=== PATIENT | male | born 1945 | race Caucasian/White ===

== ENCOUNTER 2018-01-09 10:30 | Outpatient (RCR) | payer MEDICARE, BC, SELFPAY ==
--- NOTE | 2018-01-09 11:51 | PTTR_ITS ---
DATE: 01/09/18 SUBJECTIVE: Dawit notes at least a 60% improvement in his knee discomfort compared to 6 weeks ago. He states that he has been compliant with his HEP. OBJECTIVE: He is a 72 year old male with a 5 year hx of (B) knee pain. He started rehab on 11/19/17 and had a few visits while being on a HEP for the past 3 weeks. He has a follow up appt today. Gait: Ambulates with antalgia on the (R) > (L) with severe hyper pronation on the (R) and moderate on the (L). He is unable to walk on the toes of his (R) foot due to discomfort and poor mid foot stability. He has (B) genu valgus. ROM: AA knee motion is non irritable and he is minimally tender now throughout the joint lines and negative warmth. He has a medial longitudinal arch of the (L ) foot in a non weightbearing position and a low arch on the (R) with a callous throughout the plantar aspect of the (R) mid foot. 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 Therapeutic procedures ([id number]). He has a significant calcaneal valgus also in the weightbearing position. He wears accommodative type orthotics and he feels that this has been helpful. He also has some mild discomfort throughout the lateral aspect of the (L) hip he has a tight ITB on this side and I upgrade his program to include the ITB stretch which he feels in the area that he has his discomfort. I fit him with a ankle stabilizer attempting to supinate the (R) foot and he feels much greater stability with less antalgia when using this device. I issue him one and it is to be used when he is on his feet for prolonged periods. ASSESSMENT: He is 60% improved in regards to his symptoms he has significant posterior tibialis functional (R) foot resulting in severe hyperpronation contributing further to his genu valgus. The orthotics helped some but he really needs to have support above the ankle to control the excessive pronation. So I used an ASO and this does help. He is probably a candidate for an Elena brace type device so he is not interested in pursuing this right now and will stick with the ASO. 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 Upgrade his HEP to include the ITB stretch on the (L) and issue him an ASO and describe how to use this properly mainly with prolonged weightbearing activities. He is going to continue with his strengthening exercises and he is going to experiment with his (L) foot and the ASO and if he feels like he this improves his gait further than he can certainly get another device. PLAN: D/C from PT. Goals: All goals obtained. G-Codes: [id number] Direct treatment time: 30 minutes Total treatment time: 30 minutes
== END 2018-01-24 23:59 | disposition home or self-care (01) ==
LOC: PT 10:30
PROVIDERS: PCP Nurse Practitioner Family; Referring Provider Nurse Practitioner Family; Visit Provider Nurse Practitioner Family
DX: M25.562 Pain in left knee (principal); M21.252 Flexion deformity, left hip
CPT/HCPCS: 97110

== ENCOUNTER 2018-01-14 06:56 | Emergency (ER) | payer MEDICARE, BC, SELFPAY ==
[2018-01-14 07:00] VITALS: BP 164/69; PULSE 92; RESP 16; TEMP 36.7; O2SAT 98
--- NOTE | 2018-01-14 07:13 | ED.GENADUL ---
Disposition Disposition: STILL A PATIENT Condition: Stable Medical Decision Making - Medical Decision Making Patient presenting with abdominal discomfort but not really pain as well as bloating. He does seem to have a fullness in the left lower quadrant but not really a mass. Is not tender. There is no pulsatile mass. He just does not feel right. Will go ahead and get laboratory studies and abdominal pelvic CT scan to evaluate whether this fullness is anything significant or not. Patient be signed over to oncoming physician Dr. Hartley will need to follow-up on labs and imaging studies. History of Present Illness - General Chief complaint: Abd Prob Stated complaint: UNKNOWN Time Seen by Provider: 01/14/18 07:11 Source: patient, old records reviewed Mode of arrival: ambulatory - History of Present Illness Initial comments: Patient presents to ED with bloating and discomfort in the lower abdomen for over a month now. He denies nausea/vomiting. He has been having bowel movements okay. He is urinating okay. He has no back pain. He does not necessarily even have abdominal pain just discomfort. He has had no fever. He continues to eat and drink well. He saw his primary care last week but did not say anything to her. Not clear why he came in this morning but he feels like he is worse. - Related Data Finasteride [Proscar] 5 mg PO DAILY 07/25/17 Levothyroxine Sodium [Synthroid] 25 mcg PO DAILY 07/25/17 Simvastatin [Zocor] 10 mg PO DAILY 07/25/17 Tamsulosin HCl 0.4 mg PO BID 07/25/17 TraZODone [Desyrel] 150 mg PO HS 07/25/17 Docusate Sodium [Colace] 100 mg PO DAILY #30 cap 11/18/17 Polyethylene Glycol 3350 [Miralax] 17 gm PO DAILY #5 packet 11/18/17 Sildenafil Citrate 100 mg PO PRN #12 tab-cap 11/19/17 Allergies Allergy/AdvReac Type Severity Reaction Status Date / Time Penicillins Allergy Mild Skin Rash Unverified 01/14/18 07:06 aspirin AdvReac Mild GI Bleeding Unverified 01/14/18 07:06 Review of Systems Constitutional: denies: chills, diaphoresis, fever Eyes: denies: vision change ENT: denies: ear pain Respiratory: denies: cough, shortness of breath Cardiovascular: denies: chest pain Gastrointestinal: other (bloating). denies: abdominal pain, nausea, vomiting, diarrhea, constipation Genitourinary: denies: urgency, dysuria, frequency, hematuria Musculoskeletal: denies: back pain Skin: denies: rash Neurological: denies: headache, weakness, numbness Past Medical History - Past Medical History diverticulitis; hypothyroid; BPH; SBO Surgical history: appendectomy, cholecystectomy, herniorraphy - Social History Alcohol use: none Drug use: none General Exam - General Limitations: no limitations General appearance: alert, in no apparent distress - Head Head exam: Present: atraumatic, normocephalic - Eye Eye exam: Absent: scleral icterus - ENT ENT exam: Present: mucous membranes moist - Respiratory Respiratory exam: Present: normal lung sounds bilaterally - Cardiovascular Cardiovascular Exam: Present: regular rate, normal rhythm, normal heart sounds - GI/Abdominal GI/Abdominal exam: Present: soft, other (fullness in the LLQ). Absent: distended, tenderness, guarding, rebound, mass, pulsatile mass - Extremities Exam Extremities exam: Present: normal inspection. Absent: full ROM - Neurological Exam Neurological exam: Present: alert, oriented X3, CN II-XII intact. Absent: motor sensory deficit - Psychiatric Psychiatric exam: Present: normal affect, normal mood - Skin Skin exam: Present: warm, dry, intact Course Vital Signs - 24 hr 01/14/ 07:00 Temperature 98.1 F Pulse 92 H Respiratory 96 H Rate Blood Pressure 164/69 Pulse Oximetry 98
[2018-01-14] MEDS: Lactated Ringers 1,000 ML 1000 ML IV (07:30)
--- NOTE | 2018-01-14 07:30 | DI.RPTCT_ITS ---
SYMPTOM/DIAGNOSIS: ABDOMINAL BLOATING/DISCOMFORT CT ABDOMEN AND PELVIS: Comparison is made with 25 July 2017. Images were performed from the lung bases through the ischial tuberosities after IV and without benefit of oral contrast. The previous exam showed sigmoid diverticulitis which has resolved. No abscess , free air or free fluid is seen. There is no new area of inflammation, bowel wall thickening or dilatation. Suture material is noted around the base of the cecum. There is a moderate quantity of stool. Fibrotic changes are noted at the lung bases. The heart size is normal. Patient is status post cholecystectomy. A small cyst is noted in the liver. The spleen, pancreas and adrenals are unremarkable. Bilateral parapelvic renal cysts are noted. No stones or hydronephrosis seen. The prostate is again noted to be enlarged. The bladder is unremarkable. There is evidence of a prior left inguinal hernia repair. No recurrent hernia is seen. The aorta shows mild calcification and is normal in diameter. Degenerative changes are noted in the spine. IMPRESSION: No acute abnormality.
[2018-01-14 07:44] LABS: Absolute Basophil Count 0.02 k/cumm (0.0-0.2); Absolute Eosinophil Count 0.03 k/cumm (0.0-0.7); Absolute Lymphocyte Count 0.83 k/cumm (1.2-3.4); Absolute Monocyte Count 0.35 k/cumm (0.11-0.7); Absolute Neutrophil Count 2.37 k/cumm (1.2-6.7); Basophils % 0.6; Eosinophils % 0.8; HCT 40.5 % (40.0-50.0); HGB 13.7 g/dL (13.5-17.5); Lymphocytes % 23.1; Mean Corp. HGB Concentration 33.8 g/dL (32.0-36.0); Mean Corpuscular Hemoglobin 31.1 pg (27.0-33.0); Mean Corpuscular Volume 91.8 fL (80-95); Mean Platelet Volume 8.9 fL (8.0-11.0); Monocytes % 9.7; Neutrophils % 65.8; Platelet Count 190 x1000/uL (130-400); RBC 4.41 m/cumm (4.50-6.00); RBC Distribution Width 12.5 % (11.8-14.1)
[2018-01-14 07:56] LABS: ALT 20 U/L (12-78); AST 19 U/L (15-37); Albumin 4.1 g/dL (3.4-5.0); Alkaline Phosphatase 75 U/L (46-116); Anion Gap 3.1 mmol/L (3-11); BUN 14 mg/dL (7-18); Bilirubin, Total 1.4 mg/dL (0.2-1.0); CO2 31.9 mmol/L (21.0-32.0); CREATININE 0.88 mg/dL (0.70-1.30); Calcium 9.6 mg/dL (8.5-10.1); Chloride 105 mmol/L (98-107); Glucose 107 mg/dL (70-100); Lipase 154 U/L (73-393); Potassium 4.2 mmol/L (3.5-5.1); Sodium 140 mmol/L (136-145); Total Protein 7.2 g/dL (6.4-8.2)
[2018-01-14 08:27] LABS: Bilirubin Negative (Negative); Blood Negative (Negative); Clarity Clear; Glucose Negative (Negative); Ketones Negative (Negative); Leukocyte Esterase Negative (Negative); Nitrite Negative (Negative); Urobilinogen 0.2 EU/dL (Up TO 0.2); pH 6.5 (5-8)
[2018-01-14] MEDS: Omnipaque 350 MG/ML 100 ML BTL IJ (09:09)
[2018-01-14 11:00] VITALS: BP 162/61; PULSE 63; RESP 16; TEMP 36.7; O2SAT 98
--- NOTE | 2018-01-14 21:09 | ED.FU ---
Disposition Disposition: HOME Condition: Stable Instructions: Abdominal Pain (ED) Additional Instructions: Please follow-up with your primary care provider as soon as possible for reassessment. Please have your family doctor schedule colonoscopy for further evaluation. If you notice any worsening of your symptoms, or any new symptoms such as vomiting, diarrhea, fever, chills, shortness of breath, chest pain, numbness, weakness, or fainting , please return immediately to the emergency department for reevaluation. Please follow up with your primary care provider as soon as possible for reassessment and reevaluation. As always, it was a pleasure participating in your medical care today. Referrals: Divine Jaime [Primary Care Provider] - Medical Decision Making - Lab Data Laboratory Tests 01/14/18 01/14/18 01/14/18 07:25 07:25 08:20 WBC 3.60 L RBC 4.41 L Hgb 13.7 Hct 40.5 MCV 91.8 MCH 31.1 MCHC 33.8 RDW 12.5 Plt Count 190 MPV 8.9 Immature Gran % 0.0 Neutrophils % 65.8 Lymphocytes % 23.1 Monocytes % 9.7 Eosinophils % 0.8 Basophils % 0.6 Absolute Neutrophils 2.37 Absolute Lymphocytes 0.83 L Absolute Monocytes 0.35 Absolute Eosinophils 0.03 Absolute Basophils 0.02 Sodium 140 Potassium 4.2 Chloride 105 Carbon Dioxide 31.9 Anion Gap 3.1 BUN 14 Creatinine 0.88 Estimated GFR/1.73 m2 >= 60.00 Glucose 107 H Calcium 9.6 Total Bilirubin 1.4 H AST 19 ALT 20 Alkaline Phosphatase 75 Total Protein 7.2 Albumin 4.1 Lipase 154 Urine Color Yellow Urine Clarity Clear Urine pH 6.5 Ur Specific Drummond 1.020 Urine Protein Negative Urine Ketones Negative Urine Blood Negative Urine Nitrite Negative Urine Bilirubin Negative Urine Urobilinogen 0.2 Ur Leukocyte Esterase Negative Urine Glucose Negative Care Signed Out By:: Dr Dickson - Continuation of Care Continuation of Care Plan: The case was signed out to me by my colleague Dr. Dickson. Patient's laboratory workup and imaging studies have returned benign. CT scan per Dr. Sandoval shows no evidence of acute process. I did go and reassess the patient he continues to show no significant abdominal pain at this time. No significant mass on exam. With a negative CT scan and normal laboratory workup I feel he is safe for discharge home with close follow-up with his primary care provider for colonoscopy. We discussed red flags which returned the patient understands. I have extensively reviewed the treatment plan and discharge instructions with the patient. I have addressed all patient concerns at this time. The patient was made aware of what symptoms to monitor for that would warrant a return to the emergency department. Discussed the plan with the patient, they demonstrate verbal understanding and agreement with our assessment and plan at this time.
== END 2018-01-14 11:23 | disposition home or self-care (01) ==
PROVIDERS: Emergency Medicine; Emergency Provider Student in an Organized Health Care Education/Training Program; PCP Nurse Practitioner Family
DX: R10.30 Lower abdominal pain, unspecified (principal)
CPT/HCPCS: 74177; 96360; 96361; 99284; 99285; 36415; 80053; 83690; 81003; 85025; J3490

== ENCOUNTER 2018-01-20 09:29 | Outpatient (CLI) | payer MEDICARE, BC, SELFPAY ==
--- NOTE | 2018-01-20 09:30 | NS.NUTBLAN_ITS ---
Mr. Hanson returns for follow up for nutritional counseling for diverticulosis and weight loss. This time he reports that he has follow through with the action plans he set forth from our last visit. He is cooking with a variety of foods. He is preparing his larger meal in the middle of the day. He is eating more protein foods. He is more physically active. Acknowledged his excellent progress. Mr. Hanson would like to continue working on these same action plans over the next month and check in with me at that time. His weight is stable at 171.5 lbs. He will self monitor his progress his over the next month and we will evaluate the adequacy of his nutrition care when he returns next month. Appointment start time 0937h End time: 1001h
== END 2018-01-20 09:30 ==
PROVIDERS: PCP Nurse Practitioner Family; Visit Provider Dietitian, Registered
DX: K57.90 Diverticulosis of intestine, part unspecified, without perforation or abscess without bleeding (principal); R63.4 Abnormal weight loss; Z71.3 Dietary counseling and surveillance
CPT/HCPCS: 97803

== ENCOUNTER → 2018-03-20 13:50 | Outpatient (BNVA) | payer MEDICARE, SELFPAY | PROVIDERS: PCP Nurse Practitioner Family; Visit Provider Urology | DX: N52.9 Male erectile dysfunction, unspecified (principal) | CPT/HCPCS: 99213 ==

== ENCOUNTER 2018-03-24 10:03 | Outpatient (CLI) | payer MEDICARE, SELFPAY ==
--- NOTE | 2018-03-28 14:22 | NS.NUTBLAN_ITS ---
Mr. Hanson returns for follow up nutritional counseling for diverticulitis and healthy eating nutrition therapy. He continues to do very well. He is eating breakfast earlier than he had been. He has Raisin Bran, Green[place]ic muffin, or cereal. He has his bigger meal at 1230 pm, and then in the evening he has an omelet and some fruit. 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 His weight today is stable at 172.2 lbs. Mr. Hanson would like to continue to follow up with me to help make sure he is staying on track. Appointment start time: 1000h Appointment end time: 1015 h
== END 2018-03-24 10:23 ==
PROVIDERS: PCP Nurse Practitioner Family; Visit Provider Dietitian, Registered
DX: K57.32 Diverticulitis of large intestine without perforation or abscess without bleeding (principal); Z71.3 Dietary counseling and surveillance
CPT/HCPCS: 97803

== ENCOUNTER 2018-04-28 00:55 | Outpatient (CLI) | payer MEDICARE, SELFPAY ==
--- NOTE | 2018-05-02 08:57 | W.NUTRFU ---
Date of service: 04/28/18 Time of Service: 09:30 Nutritional Follow up NOTE: Mr Hanson returns for follow up nutrition therapy for management of diverticulitis and general healthful eating. He continues to eat more healthfully. He continues to eat three balanced meals daily and he has a light meal at the end of the day so that he is not bothered by his GERD. Mr. Hanson reports that he is working hard to be physically active daily and he notices it makes him feel better. Acknowledged all of his excellent efforts towards feeling better and encouraged him to keep up with what he is doing. He would like to continue to follow up with me as a check in and so that he does not get off track. Mr. Hanson's weight is stable. He is 171.4 lbs. Will continue to monitor his weight and PO intake. Will evaluate his nutrition care plan ongoing and adjust as needed. Time Spent in Nutritional Counseling and Treatment: 47 minutes face to face
== END 2018-04-28 01:15 ==
PROVIDERS: PCP Nurse Practitioner Family; Visit Provider Dietitian, Registered
DX: K57.92 Diverticulitis of intestine, part unspecified, without perforation or abscess without bleeding (principal)
CPT/HCPCS: 97803

== ENCOUNTER 2018-05-30 01:58 | Outpatient (CLI) | payer MEDICARE, SELFPAY ==
--- NOTE | 2018-06-02 15:11 | W.NUTRFU ---
Date of service: 05/30/18 Time of Service: 09:00 Nutritional Follow up NOTE: Mr. Hanson continues to eat in the same way. He eats three meals per day. He has an omelette and fruit in the morning, a larger meal midday, and then a sandwich or a salad in the evening. He is walking for 30 minutes daily now. He does state that he had a few days in the past month where he didnt' feel well, but generally speaking, he states he is feeling better and is happier to eat healthier. His weight today is down to 167 lbs. from 172 lbs last month. Encouraged him to have drinks with calories with his meals such as whole milk, juice, or hot cocoa. He verbalizes that he will work to increase his caloric intake. Due to his recent weight loss, Mr. Hanson will return for follow up in two weeks rather than one month. Will monitor his weight and PO intake and will evaluate his nutrition care plan and adjust as needed. Time Spent in Nutritional Counseling and Treatment: 27 minutes
== END 2018-05-30 02:18 ==
PROVIDERS: PCP Nurse Practitioner Family; Visit Provider Dietitian, Registered
DX: K57.92 Diverticulitis of intestine, part unspecified, without perforation or abscess without bleeding (principal); Z71.3 Dietary counseling and surveillance; R63.4 Abnormal weight loss; N52.9 Male erectile dysfunction, unspecified
CPT/HCPCS: 97803; 99213

== ENCOUNTER 2018-07-15 19:28 | Outpatient (REF) | payer MEDICARE, SELFPAY ==
[2018-07-15 20:48] LABS: HDL Cholesterol 70 mg/dL (40-60); LDL CHOLESTEROL 54 mg/dL (<100)
== END 2018-07-15 19:48 ==
LOC: NCHCN 19:28
PROVIDERS: PCP Nurse Practitioner Family; Visit Provider Nurse Practitioner Family
DX: E78.5 Hyperlipidemia, unspecified (principal); F41.1 Generalized anxiety disorder; K21.9 Gastro-esophageal reflux disease without esophagitis; E07.9 Disorder of thyroid, unspecified; K59.00 Constipation, unspecified
CPT/HCPCS: 83721; 83718

== ENCOUNTER → 2018-07-25 08:06 | Outpatient (BNVA) | payer MEDICARE, SELFPAY | PROVIDERS: PCP Nurse Practitioner Family; Visit Provider Urology | DX: N52.9 Male erectile dysfunction, unspecified (principal) | CPT/HCPCS: 99212 ==

== ENCOUNTER → 2018-09-15 08:27 | Outpatient (BNVA) | payer MEDICARE, SELFPAY | PROVIDERS: PCP Nurse Practitioner Family; Visit Provider Urology | DX: N52.9 Male erectile dysfunction, unspecified (principal) | CPT/HCPCS: 99213 ==

== ENCOUNTER 2018-10-22 11:59 | Outpatient (REF) | payer MEDICARE, SELFPAY ==
[2018-10-22 13:22] LABS: TSH (W/Ref FT4) 3.37 uIU/mL (0.358-3.74)
== END 2018-10-22 12:19 ==
LOC: NCHCN 11:59
PROVIDERS: PCP Nurse Practitioner Family; Visit Provider Nurse Practitioner Family
DX: E07.9 Disorder of thyroid, unspecified (principal)
CPT/HCPCS: 84443

== ENCOUNTER → 2018-11-18 08:43 | Outpatient (BNVA) | payer MEDICARE, SELFPAY | PROVIDERS: PCP Nurse Practitioner Family; Visit Provider Urology | DX: N52.9 Male erectile dysfunction, unspecified (principal) | CPT/HCPCS: 99213 ==

== ENCOUNTER → 2019-01-30 10:01 | Outpatient (BNVA) | payer MEDICARE, SELFPAY | PROVIDERS: PCP Nurse Practitioner Family; Visit Provider Urology | DX: N52.9 Male erectile dysfunction, unspecified (principal) | CPT/HCPCS: 99213 ==

== ENCOUNTER 2019-03-03 13:04 | Outpatient (REF) | payer MEDICARE, SELFPAY ==
[2019-03-03 16:17] LABS: ALT 25 U/L (16-63); AST 25 U/L (15-37); Alkaline Phosphatase 78 U/L (46-116); Anion Gap 6.8 mmol/L (3-11); BUN 19 mg/dL (7-18); Bilirubin, Total 1.6 mg/dL (0.2-1.0); CO2 29.2 mmol/L (21.0-32.0); CREATININE 0.77 mg/dL (0.70-1.30); Calcium 8.8 mg/dL (8.5-10.1); Chloride 107 mmol/L (98-107); Glucose 101 mg/dL (70-100); Potassium 4.5 mmol/L (3.5-5.1); Sodium 143 mmol/L (136-145); TSH (W/Ref FT4) 3.04 uIU/mL (0.36-3.74); Total Protein 6.8 g/dL (6.4-8.2)
[2019-03-03 16:19] LABS: HGB 12.6 g/dL (13.5-17.5); Mean Corp. HGB Concentration 32.3 g/dL (32.0-36.0); Mean Corpuscular Hemoglobin 31.1 pg (27.0-33.0); Mean Corpuscular Volume 96.3 fL (80-95); Platelet Count 209 x1000/uL (130-400); RBC 4.05 m/cumm (4.50-6.00); RBC Distribution Width 12.6 % (11.8-14.1); White Blood Cell Count 3.63 k/cumm (4.4-10.8)
== END 2019-03-03 13:24 ==
LOC: NCHCN 13:04
PROVIDERS: PCP Nurse Practitioner Family; Visit Provider Nurse Practitioner Family
DX: E07.9 Disorder of thyroid, unspecified (principal); E80.6 Other disorders of bilirubin metabolism; Z13.1 Encounter for screening for diabetes mellitus
CPT/HCPCS: 80053; 85027; 84443

== ENCOUNTER 2019-03-10 11:09 | Outpatient (REF) | payer MEDICARE, SELFPAY ==
[2019-03-11 00:07] LABS: Folate > 20.0 ng/mL (8.6-20.0); Vitamin B12 480 pg/mL (193-986)
== END 2019-03-10 11:29 ==
LOC: NCHCN 11:09
PROVIDERS: PCP Nurse Practitioner Family; Visit Provider Nurse Practitioner Family
DX: D53.9 Nutritional anemia, unspecified (principal)
CPT/HCPCS: 82607; 82746

== ENCOUNTER 2019-05-18 14:17 | Emergency (ER) | payer MEDICARE, SELFPAY ==
[2019-05-18] VITALS (15 sets, daily range): BP systolic 138–165; BP diastolic 46–70; PULSE 64–98; RESP 13–29; TEMP 36.7–37.1; O2SAT 94–98
--- NOTE | 2019-05-18 14:21 | W.ED.GENAD ---
Discharge Plan Discharge Details Chief Complaint: Dizzy/Sync Primary Care Provider: Kai Peter ED Provider: Walker Hartley Home Meds and New Rx's Prescriptions: No Action (DME) vacuum erection device system kit See Dose Instructions .ROUTE .MEDSUPPLY Qty: 1 RF: 0 simvastatin 10 MG tablet 10 mg PO DAILY RF: 0 levothyroxine [Synthroid] 25 MCG tablet 25 mcg PO DAILY RF: 0 tamsulosin 0.4 MG capsule 0.4 mg PO BID RF: 0 finasteride [Proscar] 5 MG tablet 5 mg PO DAILY RF: 0 <Walker Hartley DO - Last Filed: 05/18/19 15:23> This is a very pleasant 73-year-old male with past medical history of high cholesterol no family history of stroke or MT who presents today for evaluation of imbalance. 1-1/2 hours ago he developed sudden imbalance when he tried to stand up, and since then has been notably imbalance. He denies any actual dizziness, room spinning, tinnitus, trauma fall or other abnormality. He has never had symptoms like this before. He denies any chest pain or shortness of breath. Screening EKG is negative for any significant abnormality. Neurologic exam is relatively unremarkable aside from notable ataxia for which she notably falls towards the left. He does have bidirectional bilateral horizontal nystagmus which is also slightly atypical however his test of skew is normal. His symptoms may be secondary to dehydration we will rehydrate however with the atypical nystagmus component, as well as the notable ataxia I do feel that cerebellar etiology or brainstem etiology is certainly on the differential. We will start with a CT scan, I feel that further evaluation with an MRI is likely indicated if nothing is found on CT. EKG 14: 29 Rate 66, intervals normal, sinus rhythm, no significant ST elevations or depressions, no T wave inversions, no evidence of STEMI. HPI <DO Marjorie Horton Last Filed: 05/18/19 14:21> General Date/Time Provider Initiated Documentation: 05/18/19 14:19. Related Data Home Medications Medication Instructions Recorded Confirmed finasteride [Proscar] 5 mg PO DAILY 07/25/17 01/30/19 levothyroxine [Synthroid] 25 mcg PO DAILY 07/25/17 01/30/19 simvastatin 10 mg PO DAILY 07/25/17 01/30/19 tamsulosin 0.4 mg PO BID 07/25/17 01/30/19 vacuum erection device system #1 each 03/28/18 01/30/19 Previous Rx's Medication Instructions Recorded vacuum erection device system #1 each 03/28/18 Allergies Allergy/AdvReac Type Severity Reaction Status Date / Time Penicillins Allergy Mild Skin Rash Unverified 03/20/18 14:02 aspirin AdvReac Mild GI Bleeding Unverified 03/20/18 14:02 <Walker Hartley, DO - Last Filed: 05/18/19 15:23> HPI Narrative: This is a 73-year-old male with a past medical history of high cholesterol, hypothyroidism who presents today for evaluation of imbalance. Patient states that at 1:30 PM which was an hour and a half ago the patient stood up and felt incredibly imbalanced. He lost his balance but did not fall over. He was able to catch himself and lower himself to the ground. EMS was contacted and he was brought to the ER for further evaluation. He denies any room spinning sensation or sensation of actual dizziness. He denies any ringing in his ears or visual changes. He denies any headache, numbness, tingling or weakness. He denies ever having had any symptoms like this before. He denies any family history of stroke or MT. Denies any previous cardiac disease. No history of A. fib. He is not on any blood thinners. He denies any chest pain, chest heaviness, chest tightness, arm neck or shoulder pain. He denies any recent illness, fever or chills. He does state that he has been drinking significantly less over the last 24 hours. He feels that this may be a cause of his symptoms. No other complaints at this time. No other modifying factors. <Walker Hartley DO - Last Filed: 05/18/19 15:23> All systems reviewed & are unremarkable except as noted in HPI and below PFSH <Macey Fraser, DO - Last Filed: 05/18/19 14:21> Social History Smoking/Tobacco Use Status: Never Alcohol Intake: never Drug use: Never Substance use type: does not use Do you feel safe at home: Yes Do you feel safe in your relationship?: Yes <Walker Hartley, DO - Last Filed: 05/18/19 15:23> Narrative Exam Narrative: 1.Const: Well-nourished, Well-developed, appearing stated age 2.Eyes: PERRL, no conjunctival injection, and symmetrical lids. 3.ENT: Atraumatic external nose and ears. Moist MM. Neck: Symmetric, trachea midline, No thyromegaly. 4.CVS: +S1/S2, No murmurs or gallops. Peripheral pulses 2+ and equal in all extremities. Brisk capillary refill in all extremities. 5.RESP: Unlabored respiratory effort. Clear to auscultation bilaterally. No wheezes rales or rhonchi 6.GI: Soft, Nontender/Nondistended, No hepatosplenomegaly. No guarding or rebound. 7.MSK: Normocephalic/Atraumatic, Extremities w/o deformity or ttp No cyanosis or clubbing, Normal movement of all extremities 8.Skin: Warm, Dry. No rashes or lesions. 9.Neuro: winch runner II-XII grossly intact. Sensation grossly intact. Patient is able to hold bilateral arms up for 5 seconds and there is no pronator drift, patient also holds legs up for 10 seconds bilaterally without any drop, sensation intact to light touch in hands and feet bilaterally. Cerebellar exam normal as tested by [id number], [id number], rapid alternating movements, fine finger movements. However although [id number] does appear normal he does seem to show a slight minimal restriction using the left leg. Visual givens intact peripherally. Normal speech pattern and verbal understanding. Patient is notably ataxic though, and veers/falls notably to the left. However Romberg test is normal. The patient demonstrates No vertical nystagmus. However he does have bidirectional bilateral horizontal nystagmus. The head impulse test is negative for any significant abnormality and does not worsen his symptoms. Normal test of skew with no evidence of vertical or horizontal correction. 10.Psych: (AAO) x3. Appropriate mood and affect
[2019-05-18 14:48] LABS: Absolute Basophil Count 0.01 k/cumm (0.0-0.2); Absolute Eosinophil Count 0.05 k/cumm (0.0-0.7); Absolute Lymphocyte Count 1.13 k/cumm (1.2-3.4); Absolute Monocyte Count 0.43 k/cumm (0.11-0.7); Absolute Neutrophil Count 3.15 k/cumm (1.2-6.7); Basophils % 0.2; HCT 38.2 % (40.0-50.0); HGB 12.8 g/dL (13.5-17.5); Lymphocytes % 23.7; Mean Corp. HGB Concentration 33.5 g/dL (32.0-36.0); Mean Corpuscular Hemoglobin 31.8 pg (27.0-33.0); Mean Corpuscular Volume 94.8 fL (80-95); Mean Platelet Volume 9.2 fL (8.0-11.0); Neutrophils % 66.1; Platelet Count 202 x1000/uL (130-400); RBC 4.03 m/cumm (4.50-6.00); RBC Distribution Width 12.2 % (11.8-14.1); White Blood Cell Count 4.77 k/cumm (4.4-10.8)
[2019-05-18] MEDS: Normal Saline 1,000 ML 1000 ML IV (15:03)
[2019-05-18 15:09] LABS: ALT 25 U/L (16-63); AST 25 U/L (15-37); Albumin 3.9 g/dL (3.4-5.0); Alkaline Phosphatase 76 U/L (46-116); Anion Gap 7.3 mmol/L (3-11); BUN 16 mg/dL (7-18); Bilirubin, Total 1.3 mg/dL (0.2-1.0); CO2 32.7 mmol/L (21.0-32.0); CREATININE 0.87 mg/dL (0.70-1.30); Calcium 9.2 mg/dL (8.5-10.1); Chloride 107 mmol/L (98-107); Glucose 121 mg/dL (74-106); Magnesium 1.9 mg/dL (1.8-2.4); Potassium 4.1 mmol/L (3.5-5.1); Sodium 147 mmol/L (136-145); Total Protein 6.9 g/dL (6.4-8.2)
[2019-05-18 15:12] LABS: Troponin I < 0.05 ng/Ml (<0.06)
--- NOTE | 2019-05-18 15:27 | DI.CT_ITS ---
EXAM: CT HEAD WO CLINICAL HISTORY: dizzy, ataxia, r/o cerebellar infarct TECHNIQUE: NONCONTRAST COMPARISON: No exams were available for comparison FINDINGS: The ventricles and sulci are consistent with the patient's age. No intracranial hemorrhage is presen t. The ventricles are intact. The basilar cisterns are patent. There is no acute midline shift or mass effect. The visualized paranasal sinuses are clear as are the mastoid air cells. Calvarium is intact. IMPRESSION: No acute intracranial process. Findings were discussed with Dr. Hartley of the Emergency Department on the date of the examination.
--- NOTE | 2019-05-18 15:30 | W.ED.GENAD ---
Discharge Plan Disposition Patient Disposition: HOME Condition: Good Discharge Details Chief Complaint: Dizzy/Sync Clinical Impression: Peripheral vertigo Primary Care Provider: Kai Peter ED Provider: Walker Hartley Home Meds and New Rx's Prescriptions: New meclizine 25 mg tablet 25 mg PO TID Qty: 20 RF: 0 No Action (DME) vacuum erection device system kit See Dose Instructions .ROUTE .MEDSUPPLY Qty: 1 RF: 0 simvastatin 10 MG tablet 10 mg PO DAILY RF: 0 levothyroxine [Synthroid] 25 MCG tablet 25 mcg PO DAILY RF: 0 tamsulosin 0.4 MG capsule 0.4 mg PO BID RF: 0 finasteride [Proscar] 5 MG tablet 5 mg PO DAILY RF: 0 Discharge Instructions Instructions: Dizziness (ED) Additional Instructions: At this time your MRI and lab work is negative for any significant abnormality. There does not appear to be any significant abnormalities with your heart. Although your symptoms were initially notably atypical at this time after treatment and assessment I feel her symptoms are likely secondary to what we call peripheral vertigo. Please take the meclizine as needed. If you have no more symptoms you can stop taking it. Please make sure you are drinking 10 to 12 cups of water per day. If you notice any worsening of your symptoms, or any new symptoms such as vomiting, diarrhea, fever, chills, shortness of breath, chest pain, numbness, weakness, or fainting , please return immediately to the emergency department for reevaluation. Please follow up with your primary care provider as soon as possible for reassessment and reevaluation. As always, it was a pleasure participating in your medical care today. Referrals: Kai Peter, [facility] [Primary Care Provider] - Medical Decision Making This is a very pleasant 73-year-old male with past medical history of high cholesterol no family history of stroke or NE who presents today for evaluation of imbalance. 1-1/2 hours ago he developed sudden imbalance when he tried to stand up, and since then has been notably imbalance. He denies any actual dizziness, room spinning, tinnitus, trauma fall or other abnormality. He has never had symptoms like this before. He denies any chest pain or shortness of breath. Screening EKG is negative for any significant abnormality. Neurologic exam is relatively unremarkable aside from notable ataxia for which she notably falls towards the left. He does have bidirectional bilateral horizontal nystagmus which is also slightly atypical however his test of skew is normal. His symptoms may be secondary to dehydration we will rehydrate however with the atypical nystagmus component, as well as the notable ataxia I do feel that cerebellar etiology or brainstem etiology is certainly on the differential. We will start with a CT scan, I feel that further evaluation with an MRI is likely indicated if nothing is found on CT. 4:[address] scan and MRI is negative for acute process or infarct. On reassessment the patient actually has a notable improvement of his ataxia, he has not yet gotten the meclizine but he has had a liter of fluids. His bilateral bidirectional horizontal nystagmus is still present though. Patient states that he does feel a bit better at this time. Will give meclizine, continue to reassess. With negative MR, I feel that stroke is unlikely, and that perhaps his symptoms although notably atypical for peripheral etiology actually may be secondary to a peripheral etiology. If he continues to demonstrate the sort of improvement I feel he may be able to go home with close follow-up with his PCP. 6:18 PM On reassessment after meclizine the patient is feeling much better. He is able to very briskly and quickly ambulate around the emergency department with no ataxia no dizziness and no difficulty whatsoever. He is feeling well and would like to go home. His horizontal nystagmus is notably improved. At this time I do feel that it is reasonable for him to be discharged. We will give meclizine for home use, recommend continued fluid rehydration at home. Discussed red flags which to return. Diagnosis atypical peripheral vertigo. I have extensively reviewed the treatment plan and discharge instructions with the patient. I have addressed all patient concerns at this time. The patient was made aware of what symptoms to monitor for that would warrant a return to the emergency department. Discussed the plan with the patient, they demonstrate verbal understanding and agreement with our assessment and plan at this time. EKG 14: 29 Rate 66, intervals normal, sinus rhythm, no significant ST elevations or depressions, no T wave inversions, no evidence of STEMI. FINDINGS: The ventricles and sulci are consistent with the patient's age. No intracranial hemorrhage is present. The ventricles are intact. The basilar cisterns are patent. There is no acute midline shift or mass effect. The visualized paranasal sinuses are clear as are the mastoid air cells. Calvarium is intact. IMPRESSION: No acute intracranial process. Findings were discussed with Dr. Hartley of the Emergency Department on the date of the examination. FINDINGS: Brain: No intracranial hemorrhage. No mass or midline shift. No cerebral edema. No extra-axial collections. No restricted diffusion to suggest acute infarction. Age-appropriate cerebral atrophy. Ventricles: The ventricles are normal in position. No hydrocephalus. Bones/joints: Osseous structures are unremarkable. Soft tissues: Soft tissues are unremarkable. Sinuses: Minimal LEFT maxillary sinus mucoperiosteal thickening. The visualized paranasal sinuses are otherwise well-aerated. There are no air fluid levels to suggest acute sinusitis. Mastoid air cells: The tympanomastoid air cells are normally aerated as visualized. Orbits: The [place] lenses are absent. Elongation of the globes consistent with presbyopia. Internal carotid arteries: The visualized segments of the intracranial ICAs and vertebrobasilar arteries demonstrate flow voids consistent with patency without significant stenosis. IMPRESSION: No acute intracranial findings. Thank you for allowing us to participate in the care of your patient. Dictated and Authenticated by: Barbra Tucker MD 05/18/2019 4:36 PM Eastern Time ([place] & [place]) HPI General Date/Time Provider Initiated Documentation: 05/18/19 14:19. HPI Narrative: This is a 73-year-old male with a past medical history of high cholesterol, hypothyroidism who presents today for evaluation of imbalance. Patient states that at 1:30 PM which was an hour and a half ago the patient stood up and felt incredibly imbalanced. He lost his balance but did not fall over. He was able to catch himself and lower himself to the ground. EMS was contacted and he was brought to the ER for further evaluation. He denies any room spinning sensation or sensation of actual dizziness. He denies any ringing in his ears or visual changes. He denies any headache, numbness, tingling or weakness. He denies ever having had any symptoms like this before. He denies any family history of stroke or NE. Denies any previous cardiac disease. No history of A. fib. He is not on any blood thinners. He denies any chest pain, chest heaviness, chest tightness, arm neck or shoulder pain. He denies any recent illness, fever or chills. He does state that he has been drinking significantly less over the last 24 hours. He feels that this may be a cause of his symptoms. No other complaints at this time. No other modifying factors. Related Data Home Medications Medication Instructions Recorded Confirmed finasteride [Proscar] 5 mg PO DAILY 07/25/17 01/30/19 levothyroxine [Synthroid] 25 mcg PO DAILY 07/25/17 01/30/19 simvastatin 10 mg PO DAILY 07/25/17 01/30/19 tamsulosin 0.4 mg PO BID 07/25/17 01/30/19 vacuum erection device system #1 each 03/28/18 01/30/19 meclizine 25 mg PO TID #20 tab 05/18/19 Previous Rx's Medication Instructions Recorded vacuum erection device system #1 each 03/28/18 meclizine 25 mg PO TID #20 tab 05/18/19 Allergies Allergy/AdvReac Type Severity Reaction Status Date / Time Penicillins Allergy Mild Skin Rash Unverified 03/20/18 14:02 aspirin AdvReac Mild GI Bleeding Unverified 03/20/18 14:02 General Stated Complaint: Dizzy/Sync ERICKA: 3 Review of Systems All systems reviewed & are unremarkable except as noted in HPI and below PFSH Social History Smoking/Tobacco Use Status: Never Alcohol Intake: never Drug use: Never Substance use type: does not use Do you feel safe at home: Yes Do you feel safe in your relationship?: Yes Exam Narrative Exam Narrative: 1.Const: Well-nourished, Well-developed, appearing stated age 2.Eyes: PERRL, no conjunctival injection, and symmetrical lids. 3.ENT: Atraumatic external nose and ears. Moist MM. Neck: Symmetric, trachea midline, No thyromegaly. 4.CVS: +S1/S2, No murmurs or gallops. Peripheral pulses 2+ and equal in all extremities. Brisk capillary refill in all extremities. 5.RESP: Unlabored respiratory effort. Clear to auscultation bilaterally. No wheezes rales or rhonchi 6.GI: Soft, Nontender/Nondistended, No hepatosplenomegaly. No guarding or rebound. 7.MSK: Normocephalic/Atraumatic, Extremities w/o deformity or ttp No cyanosis or clubbing, Normal movement of all extremities 8.Skin: Warm, Dry. No rashes or lesions. 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 Sensation grossly intact. Patient is able to hold bilateral arms up for 5 seconds and there is no pronator drift, patient also holds legs up for 10 seconds bilaterally without any drop, sensation intact to light touch in hands and feet bilaterally. Cerebellar exam normal as tested by [id number], [id number], rapid alternating movements, fine finger movements. However although [id number] does appear normal he does seem to show a slight minimal restriction using the left leg. Visual givens intact peripherally. Normal speech pattern and verbal understanding. Patient is notably ataxic though, and veers/falls notably to the left. However Romberg test is normal. The patient demonstrates No vertical nystagmus. However he does have bidirectional bilateral horizontal nystagmus. The head impulse test is negative for any significant abnormality and does not worsen his symptoms. Normal test of skew with no evidence of vertical or horizontal correction. 10.Psych: (AAO) x3. Appropriate mood and affect Course Vital Signs Vital signs: Vital Signs Temperature 37.1 C 05/18/19 14:42 Pulse 68 05/18/19 14:42 Respiratory Rate 18 05/18/19 14:42 Blood Pressure 155/60 H 05/18/19 14:42 Pulse Oximetry 98 05/18/19 14:42 Temperature 37.1 C 05/18/19 14:42 Temperature Source Skin 05/18/19 14:42 Pulse 68 05/18/19 14:42 Respiratory Rate 18 05/18/19 14:42 Respiratory Effort Non-Labored 05/18/19 15:09 Blood Pressure 155/60 H 05/18/19 14:42 Blood Pressure Position Sitting 05/18/19 14:42 Pulse Oximetry 98 05/18/19 14:42 Oxygen Delivery Method Room Air 05/18/19 14:42 Oxygen Flow Rate 0 05/18/19 14:42 Lab/Test Results Lab/Test Results: Laboratory Tests Range/Units 05/18/19 05/18/19 14:37 14:37 WBC (4.4-10.8) k/cumm 4.77 RBC (4.50-6.00) m/cumm 4.03 L Hgb (13.5-17.5) g/dL 12.8 L Hct (40.0-50.0) % 38.2 L MCV (80-95) fL 94.8 MCH (27.0-33.0) pg 31.8 MCHC (32.0-36.0) g/dL 33.5 RDW (11.8-14.1) % 12.2 Plt Count (130-400) x1000/uL 202 MPV (8.0-11.0) fL 9.2 Immature Gran % 0.0 Neutrophils % 66.1 Lymphocytes % 23.7 Monocytes % 9.0 Eosinophils % 1.0 Basophils % 0.2 Absolute Neutrophils (1.2-6.7) k/cumm 3.15 Absolute Lymphocytes (1.2-3.4) k/cumm 1.13 L Absolute Monocytes (0.11-0.7) k/cumm 0.43 Absolute Eosinophils (0.0-0.7) k/cumm 0.05 Absolute Basophils (0.0-0.2) k/cumm 0.01 Sodium (136-145) mmol/L 147 H Potassium (3.5-5.1) mmol/L 4.1 Chloride (98-107) mmol/L 107 Carbon Dioxide (21.0-32.0) mmol/L 32.7 H Anion Gap (3-11) mmol/L 7.3 BUN (7-18) mg/dL 16 Creatinine (0.70-1.30) mg/dL 0.87 Estimated GFR/1.73 m2 (mL/min/1.73m2) >= 60.00 Glucose (74-106) mg/dL 121 H Calcium (8.5-10.1) mg/dL 9.2 Magnesium (1.8-2.4) mg/dL 1.9 Total Bilirubin (0.2-1.0) mg/dL 1.3 H AST (15-37) U/L 25 ALT (16-63) U/L 25 Alkaline Phosphatase (46-116) U/L 76 Troponin I (<0.06) ng/Ml < 0.05 Total Protein (6.4-8.2) g/dL 6.9 Albumin (3.4-5.0) g/dL 3.9
--- NOTE | 2019-05-18 15:50 | DI.MRI_ITS ---
EXAM: MR BRAIN WO CLINICAL HISTORY: ataxia, r/o infarct TECHNIQUE: Multiplanar multisequence MRI of the brain was performed. COMPARISON: CT HEAD WO from 05/18/2019 FINDINGS: VENTRICLES AND EXTRA AXIAL SPACES: Normal in size and morphology for the patient's age. HEMORRHAGE: None. CEREBRAL PARENCHYMA: No focus of restricted diffusion to suggest acute infarct. No space-occupying le uday identified. MIDLINE SHIFT: None. BRAINSTEM/CEREBELLUM: Normal. CALVARIUM: Normal. VISUALIZED PARANASAL SINUSES/MASTOIDS: There is minimal mucosal thickening in the left maxillary sinu s. The remaining visualized paranasal sinuses are clear. OTHER FINDINGS: None. [id number]-qh-[id number]: Normal flow voids are present. IMPRESSION: No acute intracranial process.
--- NOTE | 2019-05-18 16:36 | DI.VRAD_ITS ---
PROCEDURE INFORMATION: Exam: MR Head Without Contrast Exam date and time: 05/18/2019 4:13 PM Age: 73 years old Clinical indication: Other: Ataxia TECHNIQUE: Imaging protocol: MR of the head without contrast. 3D rendering: MIP and/or 3D reconstructed images were created by the technologist. COMPARISON: CT HEAD WO 05/18/2019 3:27 PM FINDINGS: Brain: No intracranial hemorrhage. No mass or midline shift. No cerebral edema. No extra-axial collections. No restricted diffusion to suggest acute infarction. Age-appropriate cerebral atrophy. Ventricles: The ventricles are normal in position. No hydrocephalus. Bones/joints: Osseous structures are unremarkable. Soft tissues: Soft tissues are unremarkable. Sinuses: Minimal LEFT maxillary sinus mucoperiosteal thickening. The visualized paranasal sinuses are otherwise well-aerated. There are no air fluid levels to suggest acute sinusitis. Mastoid air cells: The tympanomastoid air cells are normally aerated as visualized. Orbits: The [place] lenses are absent. Elongation of the globes consistent with presbyopia. Internal carotid arteries: The visualized segments of the intracranial ICAs and vertebrobasilar arteries demonstrate flow voids consistent with patency without significant stenosis. IMPRESSION: No acute intracranial findings. Dictated and Authenticated by: Barbra Tucker MD. Ordering:FEDERICO Cardoso MD
[2019-05-18] MEDS: Acetaminophen 500 MG TAB 1000 MG PO (16:52)
[2019-05-18] MEDS: Meclizine 25 MG TAB PO ×2 (16:53→18:27)
[2019-05-18 17:41] LABS: Bilirubin Negative (Negative); Blood Negative (Negative); Clarity Sl Cloudy (Clear); Glucose Negative (Negative); Ketones Negative (Negative); Leukocyte Esterase Negative (Negative); Nitrite Negative (Negative); Specific Gravity 1.015 (1.005-1.025); Urobilinogen 0.2 EU/dL (Up TO 0.2); pH 8.5 (5-8)
== END 2019-05-18 18:30 | disposition home or self-care (01) ==
PROVIDERS: Physician Assistant; Emergency Provider Student in an Organized Health Care Education/Training Program; PCP Nurse Practitioner Family
DX: H81.392 Other peripheral vertigo, left ear (principal); R27.8 Other lack of coordination
CPT/HCPCS: 36415; 36416; 80053; 82962; 93005; 96360; 96361; 99285; 70450; 70551; 81003; 83735; 84484; 85025; 93010; 99284

== ENCOUNTER → 2019-08-25 08:51 | Outpatient (BNVA) | payer MEDICARE, SELFPAY | PROVIDERS: PCP Nurse Practitioner Family; Referring Provider Nurse Practitioner Family; Visit Provider Urology | DX: N52.8 Other male erectile dysfunction (principal) | CPT/HCPCS: 99442; G2012 ==

== ENCOUNTER 2019-09-21 20:39 | Inpatient (IN) | payer MEDICARE, SELFPAY ==
[2019-09-21 20:33] VITALS: BP 159/57; PULSE 95; RESP 20; TEMP 39.6; O2SAT 95
--- NOTE | 2019-09-21 20:45 | DI.CT_ITS ---
EXAM: CT CHEST PE ABD PELVIS W CLINICAL HISTORY: cough, left lower abdominal pain fever TECHNIQUE: Axial CT angiography was performed with multi-slice acquisition and multi-planar and/or 3 D reconstructions. FINDINGS: CT angiography of the chest was performed with intravenous infusion of 100 cc of Omnipaque 350, follo wed by scanning of the abdomen and pelvis. There are apparent chronic reticular radiodensities in the lung periphery in the apices and lung base s. There may be mild superimposed bilateral areas of patchy infiltrate. Suspect acute bibasilar pne umonia, mild. No gross consolidation. No evidence of pulmonary embolic disease. No significant abn ormality of the thoracic aorta. No mediastinal or hilar adenopathy. No significant abnormality of t racheobronchial tree. No pleural effusion or pleural-based mass. The liver is unremarkable in appearance except for an apparent small right lobe hepatic cyst. Spleen is unremarkable. Pancreas appears normal. No biliary dilatation. Gallbladder is nonvisualized. Abdominal aorta and major branches are unremarkable. No abdominal or pelvic adenopathy seen. Adrenals appear normal bilaterally. There are multiple apparent renal medullary cysts. No hydroneph rosis or nephrolithiasis. Urinary bladder grossly unremarkable. Appendix is not identified with certainty and there is a suture line at the expected location of the appendix, presumed prior appendectomy. There is no evidence of diverticulitis or bowel obstruction. Prostate is enlarged. Fat and fluid containing left inguinal hernia noted. IMPRESSION: Probable mild bibasilar pneumonia superimposed on chronic reticular pulmonary changes. No other significant abnormality identified in the chest, abdomen, or pelvis.
--- NOTE | 2019-09-21 20:58 | ED.GENADUL_ITS ---
Discharge Plan Disposition Patient Disposition: [facility] INPATIENT Condition: Stable Discharge Details Chief Complaint: Fever Clinical Impression: Sepsis, Bilateral pneumonia Primary Care Provider: Kai Peter ED Provider: Nikolay Gibson Home Meds and New Rx's Prescriptions: No Action (DME) vacuum erection device system kit See Dose Instructions .ROUTE .MEDSUPPLY Qty: 1 RF: 0 simvastatin 10 MG tablet 10 mg PO DAILY RF: 0 levothyroxine [Synthroid] 25 MCG tablet 25 mcg PO DAILY RF: 0 tamsulosin 0.4 MG capsule 0.4 mg PO BID RF: 0 finasteride [Proscar] 5 MG tablet 5 mg PO DAILY RF: 0 Medical Decision Making 74 yo male with hx of hld, bph, who comes in with chief complaint of general weaknessfor 2 days and was going to the bathroom when his legs gave out. Denies hitting head or loc. EMS was called and they noted a fever to 104 which he was unaware of. He denies travel, sick contacts and has been isolating at home and wears a mask when going to the store. He denies chest pain, headaches, neck stiffness, has had a month of a dry cough. He has had some lower left abdominal discomfort today and states he does have a history of diverticulitis. He has clear lung sounds, no murmurs, no focal neuro deficits, no menignismus, mild left lower abdominal tenderness without guarding or reboud. He is febrile here otherwise HD stable. Multiple potential etiologies for his symptoms. Will obtain chest/abd/pelvis imaging to eval for pna, diverticulitis among other pathologies and also UA and blood cultures and test for influenza and covid19. 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 No rashes to suggest cellulitis and no pain to suggest nec fasc labs show wbc of 15, lactate less than 2, lft's are elevated and troponin is elevated likely from demand. CT shows bilateral pneumonia, no PE, ct addomen shows enlarged fluid filled inguinal canal bigger than study done in 2018 but has no pain here so doubt this is the cause of his fever. no evidence of diverticulitis. Has a pcn allergy so for CAP coverage will start levofloxacin Differential Diagnosis Differential Diagnosis: diverticulitis, pna, influenza, uti, covid19 Medical Records Medical records reviewed: Yes I reviewed the patient's medical records. Imaging Data Radiologic Study: Attestation: I personally reviewed and interpreted this imaging study as follows: Imaging: CT Scan Radiologist's impression: IMPRESSION: 1. No evidence for pulmonary embolus. 2. Bilateral pneumonia. IMPRESSION: 1. Enlarging fluid distended inguinal canal hernia. 2. Bibasilar infiltrates. 3. 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 4. Diverticulosis without CT evidence of diverticul. itis 5. Additional findings as discussed above. Lab Data Lab results reviewed: Yes I reviewed the patient's lab results. ECG Data Attestation: I personally reviewed and interpreted this ECG (s) as follows: Prior ECG tracings: not available for review Interpretation: sinus rhythm, rate of 100, pr 154, qtc 410 HPI General Mode of arrival: EMS . Date/Time Provider Initiated Documentation: 09/21/19 20:41 . Limitations to Documentation: no limitations . Information obtained by: patient . History of Present Illness 74 year old M presents to the emergency department with the chief complaint of weakness , described as moderate, Patient started experiencing this day(s) (2) and it has been constant. No relieving factors improve symptom(s), No exacerbating factors reported . Patient did receive the following treatments prior to arrival, none Related Data Home Medications Medication Instructions Recorded Confirmed finasteride [Proscar] 5 mg PO DAILY 07/25/17 09/21/19 levothyroxine [Synthroid] 25 mcg PO DAILY 07/25/17 09/21/19 simvastatin 10 mg PO DAILY 07/25/17 09/21/19 tamsulosin 0.4 mg PO BID 07/25/17 09/21/19 vacuum erection device system #1 each 03/28/18 01/30/19 Previous Rx's Medication Instructions Recorded vacuum erection device system #1 each 03/28/18 Allergies Allergy/AdvReac Type Severity Reaction Status Date / Time Penicillins Allergy Mild Skin Rash Unverified 03/20/18 14:02 aspirin AdvReac Mild GI Bleeding Unverified 03/20/18 14:02 General Stated Complaint: Fever ERICKA: 2 Review of Systems All systems reviewed & are unremarkable except as noted in HPI and below Constitutional Constitutional: Denies chills and Denies weakness Eyes Eyes: Denies loss of vision ENT Ears, Nose, Mouth, and Throat: Denies change in voice Cardiovascular Cardiovascular: Denies chest pain and Denies dyspnea Respiratory Respiratory: Denies cough and Denies dyspnea Gastrointestinal Gastrointestinal: Denies nausea and Denies vomiting Genitourinary Genitourinary: Denies dysuria Musculoskeletal Musculoskeletal: Denies joint swelling Integumentary/Breasts Skin/Breast: Denies rash Neurologic Neurologic: Denies loss of vision and Denies weakness Endocrine Endocrine: Denies cold intolerance and Denies heat intolerance Allergic/Immunologic Allergic/Immunologic: Denies urticaria PFSH Social History Smoking/Tobacco Use Status: Former Tobacco Use Alcohol Intake: never Drug use: Never Substance use type: does not use Do you feel safe at home: Yes Do you feel safe in your relationship?: Yes Exam Const General: no acute distress Orientation: alert HENMT Head: normal to inspection Ears: external ears normal General nose exam: external nose normal Mouth: moist mucous membranes Eyes General: appearance normal, both eyes and all related structures Neck Neck: normal visual inspection Resp Effort & Inspection: normal respiratory effort and able to speak in complete sentences Cardio Rate: regular rate GI Palpation: soft Skin General skin exam: no rashes or lesions noted Neuro General: patient alert and patient oriented x3 Extrem General: normal to inspection Psych Mental Status: mental status grossly normal Course Vital Signs Vital signs: Vital Signs Temperature 39.6 C H 09/21/19 20:33 Pulse 95 H 09/21/19 20:33 Respiratory Rate 20 09/21/19 20:33 Blood Pressure 159/57 H 09/21/19 20:33 Pulse Oximetry 95 09/21/19 20:33 Temperature 39.6 C H 09/21/19 20:33 Temperature Source Skin 09/21/19 20:33 Pulse 95 H 09/21/19 20:33 Respiratory Rate 20 09/21/19 20:33 Respiratory Effort 09/21/19 20:40 Blood Pressure 159/57 H 09/21/19 20:33 Blood Pressure Position Sitting 09/21/19 20:33 Pulse Oximetry 95 09/21/19 20:33 Oxygen Delivery Method Room Air 09/21/19 20:33 Oxygen Flow Rate 0 09/21/19 20:33 Pain Level 0 09/21/19 20:33 Lab/Test Results Lab/Test Results: 09/21/19 20:51 Nasopharynx Influenza Types A,B Antigen - Pending 09/21/19 20:33 Blood Blood Culture - Pending 09/21/19 20:33 Blood Blood Culture - Pending
[2019-09-21 21:01] VITALS: TEMP 39.2
[2019-09-21] MEDS: Acetaminophen 500 MG TAB 1000 MG PO (21:01)
[2019-09-21] MEDS: Normal Saline 1,000 ML 1000 ML IV (21:01)
[2019-09-21 21:04] LABS: BE (Venous) 3.9 mmol/L (-3-3); HCO3 (Venous) 28 mmol/L (22-28); O2 Sat (Venous) 49 % (70-80); TCO2 (Venous) 26 mmol/L (22-29); pCO2 (Venous) 42 mm/Hg (34-47); pH (Venous) 7.43 (7.35-7.45); pO2 (Venous) 26 mm/Hg (28-44)
[2019-09-21 21:06] LABS: HCT 38.1 % (40.0-50.0); Lactate 1.9 mmol/L (0.6-1.4); Mean Corp. HGB Concentration 34.1 g/dL (32.0-36.0); Mean Corpuscular Hemoglobin 31.4 pg (27.0-33.0); Mean Platelet Volume 9.8 fL (8.0-11.0); Platelet Count 144 x1000/uL (130-400); RBC 4.14 m/cumm (4.50-6.00); RBC Distribution Width 12.5 % (11.8-14.1)
[2019-09-21] MEDS: Omnipaque 350 MG/ML 100 ML BTL IJ (21:10)
[2019-09-21] MEDS: Normal Saline - Diluent 50 ML VIAL IV (21:11)
--- NOTE | 2019-09-21 21:12 | NUR.NOTE ---
TERA Yanes from home with c/o weakness. Pt had stood up after using the BR, my legs didn't seem to want to work anymore. Reports BLE weakness, fall to floor. Pt states unknown if struck head, denies headache, LOC. Denies pain, no visible injuries d/t fall. Arrives with #20 LW. #18 to RAC, labs drawn. LS diminished. Pt reports dry cough x 1 month. States was feeling feverish since this am, took tylenol in am. Oral mucosa dry. Pt warm to touch. Has been out of house to go food shopping, states always wears mask. No known contact with covid. SR/ST on monitor.
[2019-09-21 21:20] LABS: ALT 107 U/L (16-63); AST 139 U/L (15-37); Albumin 3.7 g/dL (3.4-5.0); Alkaline Phosphatase 77 U/L (46-116); Anion Gap 7.7 mmol/L (3-11); BUN 21 mg/dL (7-18); Bilirubin, Direct 0.91 mg/dL (0.00-0.20); Bilirubin, Total 4.5 mg/dL (0.2-1.0); CO2 27.3 mmol/L (21.0-32.0); CREATININE 1.16 mg/dL (0.70-1.30); Calcium 9.4 mg/dL (8.5-10.1); Chloride 102 mmol/L (98-107); Glucose 135 mg/dL (74-106); Lipase 42 U/L (73-393); Magnesium 1.8 mg/dL (1.8-2.4); Potassium 3.9 mmol/L (3.5-5.1); Sodium 137 mmol/L (136-145)
[2019-09-21 21:26] LABS: C-Reactive Protein 13.75 mg/dL (0.0-0.3); LDH 431 U/L (85-227)
[2019-09-21 21:28] LABS: Troponin I 0.23 ng/Ml (<0.06)
[2019-09-21 21:32] LABS: Absolute Lymphocyte Count 0.63 k/cumm (1.2-3.4); Absolute Monocyte Count 0.63 k/cumm (0.11-0.7); Absolute Neutrophil Count 14.54 k/cumm (1.2-6.7)
[2019-09-21 21:33] LABS: Diff Comment Manual Differential; RBC Morphology Normal
[2019-09-21 21:41] LABS: D-Dimer 5725 ng/mlFEU (<500)
[2019-09-21 21:45] LABS: Procalcitonin 3.9 ng/mL
[2019-09-21 21:51] LABS: Ferritin 483 ng/mL (26-388)
[2019-09-21 21:58] VITALS: BP 149/57; PULSE 103; RESP 24; O2SAT 95
[2019-09-21 22:11] LABS: Bilirubin Negative (Negative); Blood Large (Negative); Clarity Clear (Clear); Glucose Negative (Negative); Ketones 40 mg/dL (Negative); Leukocyte Esterase Negative (Negative); Nitrite Negative (Negative); Urobilinogen 0.2 EU/dL (Up TO 0.2); pH 7.5 (5-8)
--- NOTE | 2019-09-21 22:14 | DI.VRAD_ITS ---
PROCEDURE INFORMATION: Exam: CT Angiography Chest With Contrast Exam date and time: 09/21/2019 8:49 PM Age: 74 years old Clinical indication: Localized; Left lower quadrant (llq); Other: PT states no pain; Patient HX: Cough, left lower abdominal pain, fever; Elevated ddimer TECHNIQUE: Imaging protocol: Computed tomographic angiography of the chest with intravenous contrast. 3D rendering: MIP and/or 3D reconstructed images were created by the technologist. COMPARISON: CT Abdomen^ROUTINE ABDOMEN PELVIS WITH CONTRAST (Adult) 14/01/2018 08:35 FINDINGS: Pulmonary arteries: The no evidence for pulmonary embolus. Aorta: Unremarkable. No aortic aneurysm. No aortic dissection. Lungs: Reticular scarring in the right apex and posterior right lung. Bibasilar infiltrates. Pleural space: Right apical pleural thickening. Heart: Unremarkable. No cardiomegaly. No pericardial effusion. Mediastinum: Hiatal hernia. Lymph nodes: Unremarkable. No enlarged lymph nodes. Bones/joints: Multilevel degenerative changes of the thoracic spine. Multilevel degenerative changes of the thoracic spine with anterior bridging osteophytes. Soft tissues: Unremarkable. IMPRESSION: 1. No evidence for pulmonary embolus. 2. Bilateral pneumonia. PROCEDURE INFORMATION: Exam: CT Abdomen And Pelvis With Contrast Exam date and time: 09/21/2019 8:49 PM Age: 74 years old Clinical indication: Localized; Left lower quadrant (llq); Other: PT states no pain; Patient HX: Cough, left lower abdominal pain, fever; Elevated ddimer TECHNIQUE: Imaging protocol: Computed tomography of the abdomen and pelvis with intravenous contrast. COMPARISON: CT Abdomen^ROUTINE ABDOMEN PELVIS WITH CONTRAST (Adult) 14/01/2018 08:35 FINDINGS: Lungs: Bibasilar infiltrates. Mediastinum: Hiatal hernia. Liver: Stable 0.9 cm simple right hepatic cyst compared with prior study. Gallbladder and bile ducts: The gallbladder is not identified with certainty. Pancreas: Normal. No ductal dilation. Spleen: Normal. No splenomegaly. Adrenals: Normal. No mass. Kidneys and ureters: Bilateral renal sinus cysts. No hydronephrosis or hydroureter. Stomach and bowel: Diverticulosis without CT evidence of diverticulitis. Appendix: No evidence of appendicitis. Intraperitoneal space: The distended fluid-filled inguinal canal has progressed since the prior study of 2018, and currently measures 10.0 x 1.7 x 3.0 cm in size. Vasculature: Atherosclerotic disease. Lymph nodes: Unremarkable. No enlarged lymph nodes. Bladder: Unremarkable as visualized. Reproductive: Enlarged prostate. Enlarged symmetric seminal vesicles. Bones/joints: Unremarkable. No acute fracture. Soft tissues: The left inguinal hernia distended with fluid. Possible prior inguinal surgery. IMPRESSION: 1. Enlarging fluid distended inguinal canal hernia. 2. Bibasilar infiltrates. 3. 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 4. Diverticulosis without CT evidence of diverticul. itis 5. Additional findings as discussed above. Dictated and Authenticated by: Yari Osei MD. Ordering:LEANDRO Link MD
[2019-09-21 22:24] LABS: Bacteria Rare HPF (Negative); C & S Indicated? C&S Done As Ordered; Casts 3-5 Hyaline LPF (Negative); Crystals Negative HPF (Negative); Epithelial Cells Negative HPF (Negative); Mucus Trace (Negative); WBC Negative HPF (0-5)
[2019-09-21] MEDS: levoFLOXacin 750 MG/150 ML BAG 100 MG IVPB (22:40)
[2019-09-21 22:43] VITALS: TEMP 37.8
--- NOTE | 2019-09-21 22:44 | NUR.NOTE ---
Call to pt vidal Helm with pt permission to inform of admission. No answer, message left to please call back.
--- NOTE | 2019-09-21 22:58 | HPE_ITS ---
Date of service: 09/21/19 Time of Service: 22:59 Assessment and Plan Assessment and plan (1) Pneumonia: Status: Acute Assessment and plan: Pneumonia. COVID of concern but will cover as bacterial for now. Oxygenating well. Will continue Levaquin as is. Unclear if LFTs represent separate issue or are part of pulmonary syndrome. Mild increase troponin likely demand ischemia but will complete r/o in any case. Certainly no symptoms or EKG findings of ACS. History of Present Illness History of Present Illness Chief Complaint: cough Narrative: 74 male non- smoker comes to ER with one month of cough, and transient lower abdominal pain. In ER findings of note for fever to 39.2, leukocytosis/ and bibasilar infiltrates non chest CT. Also modest increases tranmsaminases and TBili to 4.1, as well as troponin 0.23, with normal EKG. Patient given APAP and 750 Levaquin IV after blood cxx. Flu negative, COVID pending./ No travel, no known COVID exposure, lives alone. Denies CP or SOB. Denies EtOH./ Admitted for further manmagement. Review of Systems All systems reviewed & are unremarkable except as noted in HPI and below PFSH Social History Smoking/Tobacco Use Status: Former Tobacco Use Alcohol Intake: never Drug use: Never Substance use type: does not use Do you feel safe at home: Yes Do you feel safe in your relationship?: Yes Meds Home Medications and Allergies Home Medications Medication Instructions Recorded Confirmed Type finasteride [Proscar] 5 mg PO DAILY 07/25/17 09/21/19 History levothyroxine [Synthroid] 25 mcg PO DAILY 07/25/17 09/21/19 History simvastatin 10 mg PO DAILY 07/25/17 09/21/19 History tamsulosin 0.4 mg PO BID 07/25/17 09/21/19 History vacuum erection device system #1 each 03/28/18 01/30/19 Rx Allergies Allergy/AdvReac Type Severity Reaction Status Date / Time Penicillins Allergy Mild Skin Rash Unverified 03/20/18 14:02 aspirin AdvReac Mild GI Bleeding Unverified 03/20/18 14:02 Exam Narrative Exam Narrative: 149/57, 103, 37.8, 24, 95% RA. HEENT atraumatic, minimal scleral icterus; neck supple; lungs fine bibasilar rales; heart RRR, no murmur noted but exam difficult due to ambient noise; abdomen soft and NT, modest left inguinal hernia; extremitiesd w/o edema; neuro Ox3, non-focal Results Labs Result diagrams: 09/21/19 20:40 09/21/19 20:40 Labs: Laboratory Results - last 24 hr 09/21/19 09/21/19 09/21/19 20:40 20:40 20:40 WBC 15.80 H RBC 4.14 L Hgb 13.0 L Hct 38.1 L MCV 92.0 MCH 31.4 MCHC 34.1 RDW 12.5 Plt Count 144 MPV 9.8 Immature Gran % 0.0 Neutrophils % 86.0 Band Neutrophils % 6.0 Lymphocytes % 4.0 Monocytes % 4.0 Eosinophils % 0.0 Basophils % 0.0 Absolute Neutrophils 14.54 H Absolute Lymphocytes 0.63 L Absolute Monocytes 0.63 Absolute Eosinophils 0.00 Absolute Basophils 0.00 Differential Comment Manual differential RBC Morphology Normal D-Dimer VBG pH VBG pCO2 VBG pO2 VBG HCO3 VBG Total CO2 VBG O2 Saturation VBG Base Excess Sodium 137 Potassium 3.9 Chloride 102 Carbon Dioxide 27.3 Anion Gap 7.7 BUN 21 H Creatinine 1.16 Estimated GFR/1.73 m2 >= 60.00 Glucose 135 H Lactate 1.9 H Calcium 9.4 Magnesium 1.8 Ferritin Total Bilirubin 4.5 H Conjugated Bilirubin 0.91 H AST 139 H ALT 107 H Alkaline Phosphatase 77 Lactate Dehydrogenase Troponin I C-Reactive Protein Total Protein 7.0 Albumin 3.7 Lipase 42 Procalcitonin Urine Color Urine Clarity Urine pH Ur Specific [place] Urine Protein Urine Ketones Urine Blood Urine Nitrite Urine Bilirubin Urine Urobilinogen Ur Leukocyte Esterase Urine RBC Urine WBC Ur Epithelial Cells Urine Crystals Urine Bacteria Urine Casts Urine Mucus Ur Culture Indicated? Urine Glucose 09/21/19 09/21/19 09/21/19 20:40 20:40 20:40 WBC RBC Hgb Hct MCV MCH MCHC RDW Plt Count MPV Immature Gran % Neutrophils % Band Neutrophils % Lymphocytes % Monocytes % Eosinophils % Basophils % Absolute Neutrophils Absolute Lymphocytes Absolute Monocytes Absolute Eosinophils Absolute Basophils Differential Comment RBC Morphology D-Dimer VBG pH 7.43 VBG pCO2 42 VBG pO2 26 L VBG HCO3 28 VBG Total CO2 26 VBG O2 Saturation 49 L VBG Base Excess 3.9 H Sodium Potassium Chloride Carbon Dioxide Anion Gap BUN Creatinine Estimated GFR/1.73 m2 Glucose Lactate Calcium Magnesium Ferritin 483 H Total Bilirubin Conjugated Bilirubin AST ALT Alkaline Phosphatase Lactate Dehydrogenase 431 H Troponin I 0.23 H* C-Reactive Protein 13.75 H Total Protein Albumin Lipase Procalcitonin 3.9 Urine Color Urine Clarity Urine pH Ur Specific [place] Urine Protein Urine Ketones Urine Blood Urine Nitrite Urine Bilirubin Urine Urobilinogen Ur Leukocyte Esterase Urine RBC Urine WBC Ur Epithelial Cells Urine Crystals Urine Bacteria Urine Casts Urine Mucus Ur Culture Indicated? Urine Glucose 09/21/19 09/21/19 20:40 21:45 WBC RBC Hgb Hct MCV MCH MCHC RDW Plt Count MPV Immature Gran % Neutrophils % Band Neutrophils % Lymphocytes % Monocytes % Eosinophils % Basophils % Absolute Neutrophils Absolute Lymphocytes Absolute Monocytes Absolute Eosinophils Absolute Basophils Differential Comment RBC Morphology D-Dimer 5725 H VBG pH VBG pCO2 VBG pO2 VBG HCO3 VBG Total CO2 VBG O2 Saturation VBG Base Excess Sodium Potassium Chloride Carbon Dioxide Anion Gap BUN Creatinine Estimated GFR/1.73 m2 Glucose Lactate Calcium Magnesium Ferritin Total Bilirubin Conjugated Bilirubin AST ALT Alkaline Phosphatase Lactate Dehydrogenase Troponin I C-Reactive Protein Total Protein Albumin Lipase Procalcitonin Urine Color Analilia Urine Clarity Clear Urine pH 7.5 Ur Specific [place] 1.020 Urine Protein >=300 H Urine Ketones 40 H Urine Blood Large H Urine Nitrite Negative Urine Bilirubin Negative Urine Urobilinogen 0.2 Ur Leukocyte Esterase Negative Urine RBC 3-5 H Urine WBC Negative Ur Epithelial Cells Negative Urine Crystals Negative Urine Bacteria Rare Urine Casts 3-5 hyaline Urine Mucus Trace Ur Culture Indicated? C&s done as ordered Urine Glucose Negative Last Vital Signs Temp 37.8 C H 09/21/19 22:43 Pulse 103 H 09/21/19 21:58 Resp 24 09/21/19 21:58 BP 149/57 H 09/21/19 21:58 Pulse Ox 95 09/21/19 21:58 COVID-19 Screening Traveled to [place] from one of the affected countries or regions?: NO Recent travel in the [place] within the last 14 days?: No Recent out of the country travel within the last 14 days?: No Exposure or possible exposure to illness during travel?: No Had IN PERSON contact w/suspected or confirmed C-19 person: No Have you had the following symptoms in the past few days?: Yes Symptoms noted since travel?: Fever
[2019-09-22] VITALS (14 sets, daily range): BP systolic 102–142; BP diastolic 51–77; PULSE 83–102; RESP 16–22; TEMP 37.2–39.9; O2SAT 92–97
--- NOTE | 2019-09-22 00:09 | NUR.NOTE ---
Pt arrived with no clothing, has 2 white metal necklaces that were placed in a spec cup and given to pt. Pt noted to have bruising to left shoulder blade, right shoulder blade. +distal pulses. Report to Shalonda.
[2019-09-22 00:26] LABS: Troponin I 0.39 ng/Ml (<0.06)
[2019-09-22] MEDS: Acetaminophen 325 MG TAB 650 MG PO ×2 (03:59→13:33)
[2019-09-22] MEDS: Levothyroxine 25 MCG TAB PO (05:13)
[2019-09-22 06:51] LABS: HCT 35.9 % (40.0-50.0); HGB 12.3 g/dL (13.5-17.5); Mean Corp. HGB Concentration 34.3 g/dL (32.0-36.0); Mean Corpuscular Hemoglobin 31.5 pg (27.0-33.0); Mean Corpuscular Volume 91.8 fL (80-95); Mean Platelet Volume 9.5 fL (8.0-11.0); Platelet Count 119 x1000/uL (130-400); RBC 3.91 m/cumm (4.50-6.00); RBC Distribution Width 12.4 % (11.8-14.1); White Blood Cell Count 13.45 k/cumm (4.4-10.8)
[2019-09-22 07:14] LABS: ALT 140 U/L (16-63); AST 310 U/L (15-37); Bilirubin, Total 3.9 mg/dL (0.2-1.0)
[2019-09-22 07:21] LABS: Troponin I 0.45 ng/Ml (<0.06)
[2019-09-22] MEDS: Tamsulosin 0.4 MG CAPCR PO ×2 (07:47→20:10)
[2019-09-22] MEDS: Finasteride 5 MG TAB PO (07:47)
[2019-09-22] MEDS: Aspirin 325 MG TAB PO (07:49)
[2019-09-22 08:02] LABS: Anion Gap 7.2 mmol/L (3-11); BUN 20 mg/dL (7-18); CO2 24.8 mmol/L (21.0-32.0); CREATININE 0.93 mg/dL (0.70-1.30); Calcium 8.6 mg/dL (8.5-10.1); Chloride 105 mmol/L (98-107); Glucose 117 mg/dL (74-106); Magnesium 1.8 mg/dL (1.8-2.4); Potassium 3.7 mmol/L (3.5-5.1); Sodium 137 mmol/L (136-145)
[2019-09-22 08:05] LABS: INR 1.3 (0.9-1.1); Prothrombin Time 13.1 sec (9.3-11.0)
[2019-09-22 08:12] LABS: Lactate 1.1 mmol/L (0.6-1.4)
[2019-09-22 08:16] LABS: TSH 0.67 uIU/mL (0.36-3.74)
[2019-09-22 08:47] LABS: Creatine Kinase > 10000 U/L (39-308)
[2019-09-22 08:48] LABS: Ferritin 490 ng/mL (26-388)
--- NOTE | 2019-09-22 09:03 | INITIAL_ITS ---
- If Service Date Differs Date of service: 09/22/19 Time of Service: 09:03 Care Management Initial Assess REASON FOR HOSPITALIZATION:: Pneumonia, fever, ? rhabdomyolysis and elevated troponin PAST MEDICAL HISTORY/PAST SURGICAL HISTORY:: Left inguinal hernia, erectile dysfunction PREVIOUS FUNCTIONAL STATUS/SOCIAL/FAMILY SUPPORTS:: Willy lives alone in [place], [place]. CURRENT FUNCTIONAL STATUS:: CM is unable to meet with Willy at this time he is currently being rule out for COVID-19. CM was unable to contact him by phone and did not reach out to family at this time. Advance directive scanned to access and provided to hospitalist. CM did attempt to reach his niece Patricia, CM left a voicemail request for return call. ADVANCE DIRECTIVES:: On file niece Patricia Helm is the first agent Has patient been provided with information about the portal?: No Did the patient sign up for the portal?: No CODE STATUS:: DNR/DNI INSURANCE COVERAGE / FINANCIAL ISSUES:: Medicare, AARP PRIMARY CARE PHYSICIAN:: Kai Peter POTENTIAL DISCHARGE NEEDS:: Follow up with primary care scheduled prior to discharge PATIENT/FAMILY EDUCATION NEEDS:: Discharge education, limitations and follow up plan of care including ask me three and self management. ANTICIPATED BARRIERS TO DISCHARGE:: None anticipated TRANSPORTATION:: Pending disposition PLAN:: Willy is currently being treated for pneumonia, being treated with IV abx. He has consults ordered for cardiology (elevated troponin), surgical (lg inguinal hernia). He has an echo and LE ultrasound pending. Discharge needs to be determined and CM will continue to assess for needs.
[2019-09-22 09:34] LABS: D-Dimer 4475 ng/mlFEU (<500)
--- NOTE | 2019-09-22 09:59 | W.CARDCONSUL ---
Date of service: 09/22/19 Time of Service: 09:59 Assessment and Plan Assessment and plan (1) Elevated troponin: Status: Acute Assessment and plan: 1. Elevated troponin in the setting of bilateral pneumonia and sepsis as well as rhabdomyolysis. His breathing is nonlabored. Patient has no significant risk factors for coronary disease aside from age and prior tobacco use. He has not had any chest pain or anginal equivalent symptoms. I suspect that his elevated troponin is more associated with the rhabdomyolysis rather than a true ACS event. Her troponin peaked at 0.45 and is now trending down on afternoon labs. We do know that elevated troponin in the setting is a poor prognostic and is yet unclear how exactly to treat these troponin elevations. His symptoms and chest CT are suspicious for COVID and we are starting to see that this is a highly thrombogenic disease. ?Please send lipid panel ?Please order echocardiogram ?Would hold off on loading with aspirin, Plavix or heparin drip for now 2. Pneumonia: Possibly more concerning than his elevated troponin is his elevated inflammatory markers and decreasing platelet count in the setting of severe pneumonia. Recommend having an official consult with the [facility] telemetry critical care team. I am concerned that the patient may be trending towards DIC. Thank you for this interesting consult History of Present Illness History of Present Illness Chief Complaint: Elevated troponin Narrative: Mr. Hanson is a 74-year-old male with no significant past medical history though he was a prior smoker who presented to the ED last night with cough fever and abdominal pain. Patient states that he has had a cough for almost a month. He states that he went for a walk around his house and felt pretty well but then had a fall and believes he was on the ground for about an hour. He does not recall hurting himself or exactly why he can get up. He is certainly a little bit foggy on the details. Upon being seen in the ED he was found to be febrile and tachycardic. A CT chest showed bilateral pneumonia. There is concern for coronavirus. As part of his work-up he was found to have elevation of creatinine kinase, CRP, and d-dimer. He also has a mild transaminitis. He was also found to have a mildly elevated troponin (0.23, 0.39, 0.45). He denies chest pain with rest or exertion. EKG shows no acute changes. He has not had any palpitation or lightheadedness. His only symptoms have been cough some mild shortness of breath and fever. Upon admission he was started on Levaquin. Cardiology has been consulted due to the elevated troponin. Consults Consult date: 09/22/19 Requesting physician: Florence Lowery Review of Systems All systems reviewed & are unremarkable except as noted in HPI and below PFSH Medical History (Updated 09/22/19 @ 10:34 by Shi Alonzo MD) Erectile dysfunction (Inactive) Surgical History (Updated 09/22/19 @ 10:32 by Shi Alonzo MD) S/P left inguinal hernia repair (Acute) Social History Smoking/Tobacco Use Status: Former Tobacco Use Alcohol Intake: never Drug use: Never Substance use type: does not use Do you feel safe at home: Yes Do you feel safe in your relationship?: Yes Exam Const General: comfortable and no acute distress HENMT Head: normocephalic and atraumatic Eyes General: appearance normal, both eyes and all related structures Resp Effort & Inspection: normal respiratory effort Auscultation: rhonchi Cardio Jugular venous pressure: no JVD Rate: regular rate Rhythm: regular rhythm Heart Sounds: S1 normal and S2 normal (No Murmurs, Rubs or Gallops) GI Palpation: soft Skin General skin exam: no rashes or lesions noted Extrem General: normal to inspection and no clubbing, cyanosis or edema Psych Appearance: grossly normal Results Last Vital Signs Temp 37.6 C H 09/22/19 08:13 Pulse 90 09/22/19 08:13 Resp 17 09/22/19 08:13 BP 124/62 09/22/19 08:13 Pulse Ox 94 L 09/22/19 08:13 Labs Result diagrams: 09/22/19 06:40 09/22/19 06:45 Labs: Laboratory Results - last 24 hr 09/21/19 09/21/19 09/21/19 20:40 20:40 20:40 WBC 15.80 H RBC 4.14 L Hgb 13.0 L Hct 38.1 L MCV 92.0 MCH 31.4 MCHC 34.1 RDW 12.5 Plt Count 144 MPV 9.8 Immature Gran % 0.0 Neutrophils % 86.0 Band Neutrophils % 6.0 Lymphocytes % 4.0 Monocytes % 4.0 Eosinophils % 0.0 Basophils % 0.0 Absolute Neutrophils 14.54 H Absolute Lymphocytes 0.63 L Absolute Monocytes 0.63 Absolute Eosinophils 0.00 Absolute Basophils 0.00 Differential Comment Manual differential RBC Morphology Normal PT INR D-Dimer VBG pH VBG pCO2 VBG pO2 VBG HCO3 VBG Total CO2 VBG O2 Saturation VBG Base Excess Sodium 137 Potassium 3.9 Chloride 102 Carbon Dioxide 27.3 Anion Gap 7.7 BUN 21 H Creatinine 1.16 Estimated GFR/1.73 m2 >= 60.00 Glucose 135 H Lactate 1.9 H Calcium 9.4 Magnesium 1.8 Ferritin Total Bilirubin 4.5 H Conjugated Bilirubin 0.91 H AST 139 H ALT 107 H Alkaline Phosphatase 77 Lactate Dehydrogenase Creatine Kinase Troponin I C-Reactive Protein Total Protein 7.0 Albumin 3.7 Lipase 42 Procalcitonin TSH Urine Color Urine Clarity Urine pH Ur Specific [place] Urine Protein Urine Ketones Urine Blood Urine Nitrite Urine Bilirubin Urine Urobilinogen Ur Leukocyte Esterase Urine RBC Urine WBC Ur Epithelial Cells Urine Crystals Urine Bacteria Urine Casts Urine Mucus Ur Culture Indicated? Urine Glucose 09/21/19 09/21/19 09/21/19 20:40 20:40 20:40 WBC RBC Hgb Hct MCV MCH MCHC RDW Plt Count MPV Immature Gran % Neutrophils % Band Neutrophils % Lymphocytes % Monocytes % Eosinophils % Basophils % Absolute Neutrophils Absolute Lymphocytes Absolute Monocytes Absolute Eosinophils Absolute Basophils Differential Comment RBC Morphology PT INR D-Dimer VBG pH 7.43 VBG pCO2 42 VBG pO2 26 L VBG HCO3 28 VBG Total CO2 26 VBG O2 Saturation 49 L VBG Base Excess 3.9 H Sodium Potassium Chloride Carbon Dioxide Anion Gap BUN Creatinine Estimated GFR/1.73 m2 Glucose Lactate Calcium Magnesium Ferritin 483 H Total Bilirubin Conjugated Bilirubin AST ALT Alkaline Phosphatase Lactate Dehydrogenase 431 H Creatine Kinase Troponin I 0.23 H* C-Reactive Protein 13.75 H Total Protein Albumin Lipase Procalcitonin 3.9 TSH Urine Color Urine Clarity Urine pH Ur Specific [place] Urine Protein Urine Ketones Urine Blood Urine Nitrite Urine Bilirubin Urine Urobilinogen Ur Leukocyte Esterase Urine RBC Urine WBC Ur Epithelial Cells Urine Crystals Urine Bacteria Urine Casts Urine Mucus Ur Culture Indicated? Urine Glucose 09/21/19 09/21/19 09/21/19 20:40 21:45 23:55 WBC RBC Hgb Hct MCV MCH MCHC RDW Plt Count MPV Immature Gran % Neutrophils % Band Neutrophils % Lymphocytes % Monocytes % Eosinophils % Basophils % Absolute Neutrophils Absolute Lymphocytes Absolute Monocytes Absolute Eosinophils Absolute Basophils Differential Comment RBC Morphology PT INR D-Dimer 5725 H VBG pH VBG pCO2 VBG pO2 VBG HCO3 VBG Total CO2 VBG O2 Saturation VBG Base Excess Sodium Potassium Chloride Carbon Dioxide Anion Gap BUN Creatinine Estimated GFR/1.73 m2 Glucose Lactate Calcium Magnesium Ferritin Total Bilirubin Conjugated Bilirubin AST ALT Alkaline Phosphatase Lactate Dehydrogenase Creatine Kinase Troponin I 0.39 H* C-Reactive Protein Total Protein Albumin Lipase Procalcitonin TSH Urine Color Analilia Urine Clarity Clear Urine pH 7.5 Ur Specific [place] 1.020 Urine Protein >=300 H Urine Ketones 40 H Urine Blood Large H Urine Nitrite Negative Urine Bilirubin Negative Urine Urobilinogen 0.2 Ur Leukocyte Esterase Negative Urine RBC 3-5 H Urine WBC Negative Ur Epithelial Cells Negative Urine Crystals Negative Urine Bacteria Rare Urine Casts 3-5 hyaline Urine Mucus Trace Ur Culture Indicated? C&s done as ordered Urine Glucose Negative 09/22/19 09/22/19 09/22/19 06:40 06:40 06:40 WBC 13.45 H RBC 3.91 L Hgb 12.3 L Hct 35.9 L MCV 91.8 MCH 31.5 MCHC 34.3 RDW 12.4 Plt Count 119 L MPV 9.5 Immature Gran % Neutrophils % Band Neutrophils % Lymphocytes % Monocytes % Eosinophils % Basophils % Absolute Neutrophils Absolute Lymphocytes Absolute Monocytes Absolute Eosinophils Absolute Basophils Differential Comment RBC Morphology PT INR D-Dimer VBG pH VBG pCO2 VBG pO2 VBG HCO3 VBG Total CO2 VBG O2 Saturation VBG Base Excess Sodium Potassium Chloride Carbon Dioxide Anion Gap BUN Creatinine Estimated GFR/1.73 m2 Glucose Lactate Calcium Magnesium Ferritin Total Bilirubin 3.9 H Conjugated Bilirubin AST 310 H ALT 140 H Alkaline Phosphatase Lactate Dehydrogenase Creatine Kinase Troponin I 0.45 H* C-Reactive Protein Total Protein Albumin Lipase Procalcitonin TSH Urine Color Urine Clarity Urine pH Ur Specific [place] Urine Protein Urine Ketones Urine Blood Urine Nitrite Urine Bilirubin Urine Urobilinogen Ur Leukocyte Esterase Urine RBC Urine WBC Ur Epithelial Cells Urine Crystals Urine Bacteria Urine Casts Urine Mucus Ur Culture Indicated? Urine Glucose 09/22/19 09/22/19 09/22/19 06:45 06:45 06:45 WBC RBC Hgb Hct MCV MCH MCHC RDW Plt Count MPV Immature Gran % Neutrophils % Band Neutrophils % Lymphocytes % Monocytes % Eosinophils % Basophils % Absolute Neutrophils Absolute Lymphocytes Absolute Monocytes Absolute Eosinophils Absolute Basophils Differential Comment RBC Morphology PT 13.1 H INR 1.3 H D-Dimer VBG pH VBG pCO2 VBG pO2 VBG HCO3 VBG Total CO2 VBG O2 Saturation VBG Base Excess Sodium 137 Potassium 3.7 Chloride 105 Carbon Dioxide 24.8 Anion Gap 7.2 BUN 20 H Creatinine 0.93 Estimated GFR/1.73 m2 >= 60.00 Glucose 117 H Lactate Calcium 8.6 Magnesium 1.8 Ferritin 490 H Total Bilirubin Conjugated Bilirubin AST ALT Alkaline Phosphatase Lactate Dehydrogenase Creatine Kinase > 02180 H Troponin I C-Reactive Protein Total Protein Albumin Lipase Procalcitonin TSH 0.67 Urine Color Urine Clarity Urine pH Ur Specific [place] Urine Protein Urine Ketones Urine Blood Urine Nitrite Urine Bilirubin Urine Urobilinogen Ur Leukocyte Esterase Urine RBC Urine WBC Ur Epithelial Cells Urine Crystals Urine Bacteria Urine Casts Urine Mucus Ur Culture Indicated? Urine Glucose 09/22/19 09/22/19 06:45 08:07 WBC RBC Hgb Hct MCV MCH MCHC RDW Plt Count MPV Immature Gran % Neutrophils % Band Neutrophils % Lymphocytes % Monocytes % Eosinophils % Basophils % Absolute Neutrophils Absolute Lymphocytes Absolute Monocytes Absolute Eosinophils Absolute Basophils Differential Comment RBC Morphology PT INR D-Dimer 4475 H VBG pH VBG pCO2 VBG pO2 VBG HCO3 VBG Total CO2 VBG O2 Saturation VBG Base Excess Sodium Potassium Chloride Carbon Dioxide Anion Gap BUN Creatinine Estimated GFR/1.73 m2 Glucose Lactate 1.1 Calcium Magnesium Ferritin Total Bilirubin Conjugated Bilirubin AST ALT Alkaline Phosphatase Lactate Dehydrogenase Creatine Kinase Troponin I C-Reactive Protein Total Protein Albumin Lipase Procalcitonin TSH Urine Color Urine Clarity Urine pH Ur Specific [place] Urine Protein Urine Ketones Urine Blood Urine Nitrite Urine Bilirubin Urine Urobilinogen Ur Leukocyte Esterase Urine RBC Urine WBC Ur Epithelial Cells Urine Crystals Urine Bacteria Urine Casts Urine Mucus Ur Culture Indicated? Urine Glucose
--- NOTE | 2019-09-22 10:27 | SCONE_ITS ---
Date of service: 09/22/19 Time of Service: 10:27 Assessment and Plan Assessment and plan (1) Left inguinal hernia: Status: Acute Assessment and plan: A\\ 74 [address] old male with CT scan showing fluid with in the inguinal canal. NO bowel. He has a previous hernia repair. On exam I can't appreciate bowel moving into the canal. Has a mesh. Question fluid within a hernia sac? or just in the canal P\\ No surgical intervention needed. Will sign off History of Present Illness History of Present Illness Chief Complaint: Hernia on CT scan Narrative: Mr. Hanson is a 74 year old male admitted to the hospitalist service with weakness, bilateral pneumonia and possible MA. His COVID-19 testing is pending at this time. CT scan in the ER revealed a left fluid filled hernia. He is asymptomatic. He tells me that he had a previous left inguinal hernia repair with mesh. He denies pain. He denies changes in bowel habits. He had a normal BM this morning. He was non-tender on exam in the ER. Consults Consult date: 09/22/19 Requesting physician: Florence Lowery Review of Systems Constitutional Constitutional: Reports fever(s) and Reports weakness Eyes Eyes: Denies change in vision ENT Ears, Nose, Mouth, and Throat: Denies change in voice, Denies hoarseness and Denies post nasal drip Cardiovascular Cardiovascular: Reports as per HPI, Denies chest pain, Denies chest pain at rest, Denies irregular heart rhythm, Denies palpitations, Denies dyspnea and Denies dyspnea on exertion Respiratory Respiratory: Reports as per HPI, Denies cough, Denies dyspnea and Denies dyspnea on exertion Gastrointestinal Gastrointestinal: Reports as per HPI Genitourinary Genitourinary: Denies hematuria and Denies dysuria Musculoskeletal Musculoskeletal: Reports other (complains of leg weakness which has improved since admission) Integumentary/Breasts Skin/Breast: Reports system reviewed and no additional complaints, except as documented Neurologic Neurologic: Reports system reviewed and no additional complaints, except as documented and Reports weakness Psychiatric Psychiatric: Reports system reviewed and no additional complaints, except as documented Endocrine Endocrine: Reports system reviewed and no additional complaints, except as documented and Denies palpitations Hematologic/Lymphatic Hematologic/Lymphatic: Reports system reviewed and no additional complaints, except as documented [facility] Medical History (Updated 09/22/19 @ 10:34 by Shi Alonzo MD) Erectile dysfunction (Inactive) Surgical History (Updated 09/22/19 @ 10:32 by Shi Alonzo MD) S/P left inguinal hernia repair (Acute) Social History Smoking/Tobacco Use Status: Former Tobacco Use Alcohol Intake: never Drug use: Never Substance use type: does not use Do you feel safe at home: Yes Do you feel safe in your relationship?: Yes Exam Const General: cooperative, comfortable and no acute distress Orientation: alert and oriented x3 HENMT Head: normocephalic and atraumatic Eyes Pupils: PERRL Resp Effort & Inspection: normal respiratory effort Auscultation: clear to auscultation bilaterally Cardio Rate: regular rate Rhythm: regular rhythm Heart Sounds: no gallops, no murmurs and no rubs GI Inspection: normal to inspection Palpation: soft, no hepatosplenomegaly, hernia (fluid collection, no hernia with valsalva) and nontender Auscultation: normal bowel sounds Results Last Vital Signs Temp 99.7 F H 09/22/19 08:13 Pulse 90 09/22/19 08:13 Resp 17 09/22/19 08:13 BP 124/62 09/22/19 08:13 Pulse Ox 94 L 09/22/19 08:13 Labs Result diagrams: 09/22/19 06:40 09/22/19 06:45 Labs: Laboratory Results - last 24 hr 09/21/19 09/21/19 09/21/19 20:40 20:40 20:40 WBC 15.80 H RBC 4.14 L Hgb 13.0 L Hct 38.1 L MCV 92.0 MCH 31.4 MCHC 34.1 RDW 12.5 Plt Count 144 MPV 9.8 Immature Gran % 0.0 Neutrophils % 86.0 Band Neutrophils % 6.0 Lymphocytes % 4.0 Monocytes % 4.0 Eosinophils % 0.0 Basophils % 0.0 Absolute Neutrophils 14.54 H Absolute Lymphocytes 0.63 L Absolute Monocytes 0.63 Absolute Eosinophils 0.00 Absolute Basophils 0.00 Differential Comment Manual differential RBC Morphology Normal PT INR D-Dimer VBG pH VBG pCO2 VBG pO2 VBG HCO3 VBG Total CO2 VBG O2 Saturation VBG Base Excess Sodium 137 Potassium 3.9 Chloride 102 Carbon Dioxide 27.3 Anion Gap 7.7 BUN 21 H Creatinine 1.16 Estimated GFR/1.73 m2 >= 60.00 Glucose 135 H Lactate 1.9 H Calcium 9.4 Magnesium 1.8 Ferritin Total Bilirubin 4.5 H Conjugated Bilirubin 0.91 H AST 139 H ALT 107 H Alkaline Phosphatase 77 Lactate Dehydrogenase Creatine Kinase Troponin I C-Reactive Protein Total Protein 7.0 Albumin 3.7 Lipase 42 Procalcitonin TSH Urine Color Urine Clarity Urine pH Ur Specific [place] Urine Protein Urine Ketones Urine Blood Urine Nitrite Urine Bilirubin Urine Urobilinogen Ur Leukocyte Esterase Urine RBC Urine WBC Ur Epithelial Cells Urine Crystals Urine Bacteria Urine Casts Urine Mucus Ur Culture Indicated? Urine Glucose 09/21/19 09/21/19 09/21/19 20:40 20:40 20:40 WBC RBC Hgb Hct MCV MCH MCHC RDW Plt Count MPV Immature Gran % Neutrophils % Band Neutrophils % Lymphocytes % Monocytes % Eosinophils % Basophils % Absolute Neutrophils Absolute Lymphocytes Absolute Monocytes Absolute Eosinophils Absolute Basophils Differential Comment RBC Morphology PT INR D-Dimer VBG pH 7.43 VBG pCO2 42 VBG pO2 26 L VBG HCO3 28 VBG Total CO2 26 VBG O2 Saturation 49 L VBG Base Excess 3.9 H Sodium Potassium Chloride Carbon Dioxide Anion Gap BUN Creatinine Estimated GFR/1.73 m2 Glucose Lactate Calcium Magnesium Ferritin 483 H Total Bilirubin Conjugated Bilirubin AST ALT Alkaline Phosphatase Lactate Dehydrogenase 431 H Creatine Kinase Troponin I 0.23 H* C-Reactive Protein 13.75 H Total Protein Albumin Lipase Procalcitonin 3.9 TSH Urine Color Urine Clarity Urine pH Ur Specific [place] Urine Protein Urine Ketones Urine Blood Urine Nitrite Urine Bilirubin Urine Urobilinogen Ur Leukocyte Esterase Urine RBC Urine WBC Ur Epithelial Cells Urine Crystals Urine Bacteria Urine Casts Urine Mucus Ur Culture Indicated? Urine Glucose 09/21/19 09/21/19 09/21/19 20:40 21:45 23:55 WBC RBC Hgb Hct MCV MCH MCHC RDW Plt Count MPV Immature Gran % Neutrophils % Band Neutrophils % Lymphocytes % Monocytes % Eosinophils % Basophils % Absolute Neutrophils Absolute Lymphocytes Absolute Monocytes Absolute Eosinophils Absolute Basophils Differential Comment RBC Morphology PT INR D-Dimer 5725 H VBG pH VBG pCO2 VBG pO2 VBG HCO3 VBG Total CO2 VBG O2 Saturation VBG Base Excess Sodium Potassium Chloride Carbon Dioxide Anion Gap BUN Creatinine Estimated GFR/1.73 m2 Glucose Lactate Calcium Magnesium Ferritin Total Bilirubin Conjugated Bilirubin AST ALT Alkaline Phosphatase Lactate Dehydrogenase Creatine Kinase Troponin I 0.39 H* C-Reactive Protein Total Protein Albumin Lipase Procalcitonin TSH Urine Color Analilia Urine Clarity Clear Urine pH 7.5 Ur Specific [place] 1.020 Urine Protein >=300 H Urine Ketones 40 H Urine Blood Large H Urine Nitrite Negative Urine Bilirubin Negative Urine Urobilinogen 0.2 Ur Leukocyte Esterase Negative Urine RBC 3-5 H Urine WBC Negative Ur Epithelial Cells Negative Urine Crystals Negative Urine Bacteria Rare Urine Casts 3-5 hyaline Urine Mucus Trace Ur Culture Indicated? C&s done as ordered Urine Glucose Negative 09/22/19 09/22/19 09/22/19 06:40 06:40 06:40 WBC 13.45 H RBC 3.91 L Hgb 12.3 L Hct 35.9 L MCV 91.8 MCH 31.5 MCHC 34.3 RDW 12.4 Plt Count 119 L MPV 9.5 Immature Gran % Neutrophils % Band Neutrophils % Lymphocytes % Monocytes % Eosinophils % Basophils % Absolute Neutrophils Absolute Lymphocytes Absolute Monocytes Absolute Eosinophils Absolute Basophils Differential Comment RBC Morphology PT INR D-Dimer VBG pH VBG pCO2 VBG pO2 VBG HCO3 VBG Total CO2 VBG O2 Saturation VBG Base Excess Sodium Potassium Chloride Carbon Dioxide Anion Gap BUN Creatinine Estimated GFR/1.73 m2 Glucose Lactate Calcium Magnesium Ferritin Total Bilirubin 3.9 H Conjugated Bilirubin AST 310 H ALT 140 H Alkaline Phosphatase Lactate Dehydrogenase Creatine Kinase Troponin I 0.45 H* C-Reactive Protein Total Protein Albumin Lipase Procalcitonin TSH Urine Color Urine Clarity Urine pH Ur Specific [place] Urine Protein Urine Ketones Urine Blood Urine Nitrite Urine Bilirubin Urine Urobilinogen Ur Leukocyte Esterase Urine RBC Urine WBC Ur Epithelial Cells Urine Crystals Urine Bacteria Urine Casts Urine Mucus Ur Culture Indicated? Urine Glucose 09/22/19 09/22/19 09/22/19 06:45 06:45 06:45 WBC RBC Hgb Hct MCV MCH MCHC RDW Plt Count MPV Immature Gran % Neutrophils % Band Neutrophils % Lymphocytes % Monocytes % Eosinophils % Basophils % Absolute Neutrophils Absolute Lymphocytes Absolute Monocytes Absolute Eosinophils Absolute Basophils Differential Comment RBC Morphology PT 13.1 H INR 1.3 H D-Dimer VBG pH VBG pCO2 VBG pO2 VBG HCO3 VBG Total CO2 VBG O2 Saturation VBG Base Excess Sodium 137 Potassium 3.7 Chloride 105 Carbon Dioxide 24.8 Anion Gap 7.2 BUN 20 H Creatinine 0.93 Estimated GFR/1.73 m2 >= 60.00 Glucose 117 H Lactate Calcium 8.6 Magnesium 1.8 Ferritin 490 H Total Bilirubin Conjugated Bilirubin AST ALT Alkaline Phosphatase Lactate Dehydrogenase Creatine Kinase > 69946 H Troponin I C-Reactive Protein Total Protein Albumin Lipase Procalcitonin TSH 0.67 Urine Color Urine Clarity Urine pH Ur Specific [place] Urine Protein Urine Ketones Urine Blood Urine Nitrite Urine Bilirubin Urine Urobilinogen Ur Leukocyte Esterase Urine RBC Urine WBC Ur Epithelial Cells Urine Crystals Urine Bacteria Urine Casts Urine Mucus Ur Culture Indicated? Urine Glucose 09/22/19 09/22/19 06:45 08:07 WBC RBC Hgb Hct MCV MCH MCHC RDW Plt Count MPV Immature Gran % Neutrophils % Band Neutrophils % Lymphocytes % Monocytes % Eosinophils % Basophils % Absolute Neutrophils Absolute Lymphocytes Absolute Monocytes Absolute Eosinophils Absolute Basophils Differential Comment RBC Morphology PT INR D-Dimer 4475 H VBG pH VBG pCO2 VBG pO2 VBG HCO3 VBG Total CO2 VBG O2 Saturation VBG Base Excess Sodium Potassium Chloride Carbon Dioxide Anion Gap BUN Creatinine Estimated GFR/1.73 m2 Glucose Lactate 1.1 Calcium Magnesium Ferritin Total Bilirubin Conjugated Bilirubin AST ALT Alkaline Phosphatase Lactate Dehydrogenase Creatine Kinase Troponin I C-Reactive Protein Total Protein Albumin Lipase Procalcitonin TSH Urine Color Urine Clarity Urine pH Ur Specific [place] Urine Protein Urine Ketones Urine Blood Urine Nitrite Urine Bilirubin Urine Urobilinogen Ur Leukocyte Esterase Urine RBC Urine WBC Ur Epithelial Cells Urine Crystals Urine Bacteria Urine Casts Urine Mucus Ur Culture Indicated? Urine Glucose
[2019-09-22] MEDS: Pantoprazole 40 MG VIAL IVP (11:06)
[2019-09-22] MEDS: Normal Saline Flush 10 ML SYR IVP ×2 (11:06→17:27)
[2019-09-22 12:52] LABS: Troponin I 0.31 ng/Ml (<0.06)
--- NOTE | 2019-09-22 14:49 | PGE_ITS ---
Date of Service Date of service: 09/22/19 Time of Service: 14:49 Assessment and Plan Assessment and plan (1) Sepsis: Status: Acute Assessment and plan: Due to GPC bacteremia and PNA, present on admission. It is certainly concerning that the patient also has back pain - and it could be post-traumatic or pre-traumatic, as the patient's legs did give out. Will obtain CT's of the spine - noncontrast, because the patient received IV contrast with his CT in the ED, but with plans to obtain MRI's of cervical, thoracic and lumbar spine tomorrow. At this time, continue levofloxacin; vancomycin added. Consider changing antibiotics if platelets continue to decrease. Repeat blood cultures tomorrow. Obtaining echo. Trend procalcitonin/CRP. (2) Gram-positive cocci bacteremia: Status: Acute Assessment and plan: As above. (3) Bilateral pneumonia: Status: Acute Assessment and plan: As above (4) Rhabdomyolysis: Status: Acute Assessment and plan: Likely result of prolonged time spent on the floor post fall. Continue IVF/add lasix. Trend I/O, daily weight. (5) Elevated troponin: Status: Acute Assessment and plan: In setting of sepsis but also in acute rhabdomyolysis. The patient does not have signs/sx of cardiac issues at this time, but is unreliable historian. Appreciate cardiology help - for now, will abstain from asa/plavix/heparin. Await echo. Treat rhabdo. Continue to trend troponins - next check tomorrow. R/o COVID. May require transfer to a tertiary care facility. (6) Left inguinal hernia: Status: Acute Assessment and plan: Evaluated by general surgery. Patient has a benign exam - no pain, and on imaging no bowel within the hernia. Follow up as outpatient. No surgical intervention planned as inpatient. (7) Back pain: Status: Acute Assessment and plan: Obtain CT/ MRI to ensure no fx/abscess (8) Neck pain: Status: Acute Assessment and plan: Obtain CT/MRI to ensure no fx/abscess (9) Transaminitis: Status: Acute Assessment and plan: Expected in setting of rhabdomyolysis. No further workup indicated. (10) Ambulatory dysfunction: Status: Acute Assessment and plan: Once CT/MRI imaging available, will obtain PT consult (11) DVT prophylaxis: Status: Acute Assessment and plan: start low dose SC heparin, carefully monitoring plts (12) Discharge planning issues: Status: Acute Assessment and plan: DNR/DNI Subjective Subjective Interval history since last seen: Mr Hanson initially states that nothing hurts, when I ask him where does it hurt. Within the next 2 minutes it becomes obvious that his neck, L shoulder, and the entire back hurt. The patient states that he fell yesterday because his legs gave it. He thought it was because he was dehydrated, but at the same time he does not remember feeling dizzy the way he usually does when he is dehydrated. He does not think that his back/neck hurt before he fell. He denies visual changes, headache. Alfredito es chest pain, shortness of breath, nausea. He is able to move his legs. Does not have any numbness/tingling/difficulty voiding (though it's hard for him to get up to urinate), and denies fecal incont inence. Last BM was yesterday. He agrees to a rodríguez catheter. Exam Narrative Exam Narrative: General: pleasant middle-aged/elderly male with earrings in his left ear, looks younger than his stated age, A&Ox3, but forgetful and not reliable, uncomfortable and has difficulty rotating his neck to the left. HEENT: EOMI, MMM; able to turn neck to the right, but not left, able to flex neck forward without neck pain Heart: RRR, I have difficulty hearing a murmur with a PAPR on Lungs: CTAB Abdomen: soft, nontender, nondistended Extremities: no e/c/c BLE's; in bed, 5/5 BLE strength Skin: multiple ecchymoses on back, RUE Spin: TTP neck, mid-back; not so much lower back Objective Objective Clinical Data: Abnormal lab results 09/21/19 09/21/19 09/21/19 Range/Units 20:40 20:40 20:40 WBC 15.80 H (4.4-10.8) k/cumm RBC 4.14 L (4.50-6.00) m/cumm Hgb 13.0 L (13.5-17.5) g/dL Hct 38.1 L (40.0-50.0) % Plt Count (130-400) x1000/uL Absolute Neutrophils 14.54 H (1.2-6.7) k/cumm Absolute Lymphocytes 0.63 L (1.2-3.4) k/cumm PT (9.3-11.0) sec INR (0.9-1.1) D-Dimer (<500) ng/mlFEU VBG pO2 (28-44) mm/Hg VBG O2 Saturation (70-80) % VBG Base Excess (-3-3) mmol/L BUN 21 H (7-18) mg/dL Glucose 135 H (74-106) mg/dL Lactate 1.9 H (0.6-1.4) mmol/L Ferritin (26-388) ng/mL Total Bilirubin 4.5 H (0.2-1.0) mg/dL Conjugated Bilirubin 0.91 H (0.00-0.20) mg/dL AST 139 H (15-37) U/L ALT 107 H (16-63) U/L Lactate Dehydrogenase (85-227) U/L Creatine Kinase (39-308) U/L Troponin I (<0.06) ng/Ml C-Reactive Protein (0.0-0.3) mg/dL Urine Protein (Negative) mg/dL Urine Ketones (Negative) mg/dL Urine Blood (Negative) Urine RBC (0-2) HPF 09/21/19 09/21/19 09/21/19 Range/Units 20:40 20:40 20:40 WBC (4.4-10.8) k/cumm RBC (4.50-6.00) m/cumm Hgb (13.5-17.5) g/dL Hct (40.0-50.0) % Plt Count (130-400) x1000/uL Absolute Neutrophils (1.2-6.7) k/cumm Absolute Lymphocytes (1.2-3.4) k/cumm PT (9.3-11.0) sec INR (0.9-1.1) D-Dimer 5725 H (<500) ng/mlFEU VBG pO2 26 L (28-44) mm/Hg VBG O2 Saturation 49 L (70-80) % VBG Base Excess 3.9 H (-3-3) mmol/L BUN (7-18) mg/dL Glucose (74-106) mg/dL Lactate (0.6-1.4) mmol/L Ferritin 483 H (26-388) ng/mL Total Bilirubin (0.2-1.0) mg/dL Conjugated Bilirubin (0.00-0.20) mg/dL AST (15-37) U/L ALT (16-63) U/L Lactate Dehydrogenase 431 H (85-227) U/L Creatine Kinase (39-308) U/L Troponin I 0.23 H* (<0.06) ng/Ml C-Reactive Protein 13.75 H (0.0-0.3) mg/dL Urine Protein (Negative) mg/dL Urine Ketones (Negative) mg/dL Urine Blood (Negative) Urine RBC (0-2) HPF 09/21/19 09/21/19 09/22/19 Range/Units 21:45 23:55 06:40 WBC (4.4-10.8) k/cumm RBC (4.50-6.00) m/cumm Hgb (13.5-17.5) g/dL Hct (40.0-50.0) % Plt Count (130-400) x1000/uL Absolute Neutrophils (1.2-6.7) k/cumm Absolute Lymphocytes (1.2-3.4) k/cumm PT (9.3-11.0) sec INR (0.9-1.1) D-Dimer (<500) ng/mlFEU VBG pO2 (28-44) mm/Hg VBG O2 Saturation (70-80) % VBG Base Excess (-3-3) mmol/L BUN (7-18) mg/dL Glucose (74-106) mg/dL Lactate (0.6-1.4) mmol/L Ferritin (26-388) ng/mL Total Bilirubin (0.2-1.0) mg/dL Conjugated Bilirubin (0.00-0.20) mg/dL AST (15-37) U/L ALT (16-63) U/L Lactate Dehydrogenase (85-227) U/L Creatine Kinase (39-308) U/L Troponin I 0.39 H* 0.45 H* (<0.06) ng/Ml C-Reactive Protein (0.0-0.3) mg/dL Urine Protein >=300 H (Negative) mg/dL Urine Ketones 40 H (Negative) mg/dL Urine Blood Large H (Negative) Urine RBC 3-5 H (0-2) HPF 09/22/19 09/22/19 09/22/19 Range/Units 06:40 06:40 06:45 WBC 13.45 H (4.4-10.8) k/cumm RBC 3.91 L (4.50-6.00) m/cumm Hgb 12.3 L (13.5-17.5) g/dL Hct 35.9 L (40.0-50.0) % Plt Count 119 L (130-400) x1000/uL Absolute Neutrophils (1.2-6.7) k/cumm Absolute Lymphocytes (1.2-3.4) k/cumm PT (9.3-11.0) sec INR (0.9-1.1) D-Dimer (<500) ng/mlFEU VBG pO2 (28-44) mm/Hg VBG O2 Saturation (70-80) % VBG Base Excess (-3-3) mmol/L BUN 20 H (7-18) mg/dL Glucose 117 H (74-106) mg/dL Lactate (0.6-1.4) mmol/L Ferritin (26-388) ng/mL Total Bilirubin 3.9 H (0.2-1.0) mg/dL Conjugated Bilirubin (0.00-0.20) mg/dL AST 310 H (15-37) U/L ALT 140 H (16-63) U/L Lactate Dehydrogenase (85-227) U/L Creatine Kinase (39-308) U/L Troponin I (<0.06) ng/Ml C-Reactive Protein (0.0-0.3) mg/dL Urine Protein (Negative) mg/dL Urine Ketones (Negative) mg/dL Urine Blood (Negative) Urine RBC (0-2) HPF 09/22/19 09/22/19 09/22/19 Range/Units 06:45 06:45 06:45 WBC (4.4-10.8) k/cumm RBC (4.50-6.00) m/cumm Hgb (13.5-17.5) g/dL Hct (40.0-50.0) % Plt Count (130-400) x1000/uL Absolute Neutrophils (1.2-6.7) k/cumm Absolute Lymphocytes (1.2-3.4) k/cumm PT 13.1 H (9.3-11.0) sec INR 1.3 H (0.9-1.1) D-Dimer 4475 H (<500) ng/mlFEU VBG pO2 (28-44) mm/Hg VBG O2 Saturation (70-80) % VBG Base Excess (-3-3) mmol/L BUN (7-18) mg/dL Glucose (74-106) mg/dL Lactate (0.6-1.4) mmol/L Ferritin 490 H (26-388) ng/mL Total Bilirubin (0.2-1.0) mg/dL Conjugated Bilirubin (0.00-0.20) mg/dL AST (15-37) U/L ALT (16-63) U/L Lactate Dehydrogenase (85-227) U/L Creatine Kinase > 30393 H (39-308) U/L Troponin I (<0.06) ng/Ml C-Reactive Protein (0.0-0.3) mg/dL Urine Protein (Negative) mg/dL Urine Ketones (Negative) mg/dL Urine Blood (Negative) Urine RBC (0-2) HPF 09/22/19 Range/Units 12:15 WBC (4.4-10.8) k/cumm RBC (4.50-6.00) m/cumm Hgb (13.5-17.5) g/dL Hct (40.0-50.0) % Plt Count (130-400) x1000/uL Absolute Neutrophils (1.2-6.7) k/cumm Absolute Lymphocytes (1.2-3.4) k/cumm PT (9.3-11.0) sec INR (0.9-1.1) D-Dimer (<500) ng/mlFEU VBG pO2 (28-44) mm/Hg VBG O2 Saturation (70-80) % VBG Base Excess (-3-3) mmol/L BUN (7-18) mg/dL Glucose (74-106) mg/dL Lactate (0.6-1.4) mmol/L Ferritin (26-388) ng/mL Total Bilirubin (0.2-1.0) mg/dL Conjugated Bilirubin (0.00-0.20) mg/dL AST (15-37) U/L ALT (16-63) U/L Lactate Dehydrogenase (85-227) U/L Creatine Kinase (39-308) U/L Troponin I 0.31 H* (<0.06) ng/Ml C-Reactive Protein (0.0-0.3) mg/dL Urine Protein (Negative) mg/dL Urine Ketones (Negative) mg/dL Urine Blood (Negative) Urine RBC (0-2) HPF Vital Signs Temperature 39.0 C H 09/22/19 13:33 Temperature Source Tympanic 09/22/19 12:42 Pulse 85 09/22/19 12:42 Pulse Rhythm Regular 09/22/19 08:00 Respiratory Rate 18 09/22/19 12:42 Respiratory Effort Non-Labored 09/22/19 08:00 Respiratory Depth Normal 09/22/19 08:00 Respiratory Pattern Normal 09/22/19 08:00 Blood Pressure 130/63 09/22/19 12:42 Blood Pressure Position Sitting 09/21/19 20:33 Pulse Oximetry 94 L 09/22/19 12:42 Oxygen Delivery Method Room Air 09/22/19 12:42 Oxygen Flow Rate 0 09/22/19 12:42 Pain Level 5 09/22/19 00:52 Comment 09/22/19 04:00 Intake & Output 09/21/19 09/22/19 09/22/19 23:59 11:59 23:59 Intake Total 1000 / 1000 150 / 150 Output Total 250 / 250 Balance 1000 / 1000 -100 / -100 Weight 73.2 kg 74.2 kg Intake: IV 1000 / 1000 150 / 150 Output: Urine 250 / 250 Other: Urine Color Dark Analilia Urine Appearance Clear Urine Odor Normal Comment ACCIDENTALLY SPILLED URINAL ON FLOOR. CLEANED AND SANITIZED FLOOR Stool Size Small Stool Characteristics Soft Brown Voiding Methods Urinal Laboratory Results WBC 13.45 k/cumm (4.4-10.8) H 09/22/19 06:40 RBC 3.91 m/cumm (4.50-6.00) L 09/22/19 06:40 Hgb 12.3 g/dL (13.5-17.5) L 09/22/19 06:40 Hct 35.9 % (40.0-50.0) L 09/22/19 06:40 MCV 91.8 fL (80-95) 09/22/19 06:40 MCH 31.5 pg (27.0-33.0) 09/22/19 06:40 MCHC 34.3 g/dL (32.0-36.0) 09/22/19 06:40 RDW 12.4 % (11.8-14.1) 09/22/19 06:40 Plt Count 119 x1000/uL (130-400) L 09/22/19 06:40 MPV 9.5 fL (8.0-11.0) 09/22/19 06:40 Immature Gran % 0.0 % 09/21/19 20:40 Neutrophils % 86.0 09/21/19 20:40 Band Neutrophils % 6.0 % 09/21/19 20:40 Lymphocytes % 4.0 09/21/19 20:40 Monocytes % 4.0 09/21/19 20:40 Eosinophils % 0.0 09/21/19 20:40 Basophils % 0.0 09/21/19 20:40 Absolute Neutrophils 14.54 k/cumm (1.2-6.7) H 09/21/19 20:40 Absolute Lymphocytes 0.63 k/cumm (1.2-3.4) L 09/21/19 20:40 Absolute Monocytes 0.63 k/cumm (0.11-0.7) 09/21/19 20:40 Absolute Eosinophils 0.00 k/cumm (0.0-0.7) 09/21/19 20:40 Absolute Basophils 0.00 k/cumm (0.0-0.2) 09/21/19 20:40 Differential Comment Manual differential 09/21/19 20:40 RBC Morphology Normal 09/21/19 20:40 PT 13.1 sec (9.3-11.0) H 09/22/19 06:45 INR 1.3 (0.9-1.1) H 09/22/19 06:45 D-Dimer 4475 ng/mlFEU (<500) H 09/22/19 06:45 VBG pH 7.43 (7.35-7.45) 09/21/19 20:40 VBG pCO2 42 mm/Hg (34-47) 09/21/19 20:40 VBG pO2 26 mm/Hg (28-44) L 09/21/19 20:40 VBG HCO3 28 mmol/L (22-28) 09/21/19 20:40 VBG Total CO2 26 mmol/L (22-29) 09/21/19 20:40 VBG O2 Saturation 49 % (70-80) L 09/21/19 20:40 VBG Base Excess 3.9 mmol/L (-3-3) H 09/21/19 20:40 Sodium 137 mmol/L (136-145) 09/22/19 06:45 Potassium 3.7 mmol/L (3.5-5.1) 09/22/19 06:45 Chloride 105 mmol/L (98-107) 09/22/19 06:45 Carbon Dioxide 24.8 mmol/L (21.0-32.0) 09/22/19 06:45 Anion Gap 7.2 mmol/L (3-11) 09/22/19 06:45 BUN 20 mg/dL (7-18) H 09/22/19 06:45 Creatinine 0.93 mg/dL (0.70-1.30) 09/22/19 06:45 Estimated GFR/1.73 m2 >= 60.00 (mL/min/1.73m2) 09/22/19 06:45 Glucose 117 mg/dL (74-106) H 09/22/19 06:45 Lactate 1.1 mmol/L (0.6-1.4) 09/22/19 08:07 Calcium 8.6 mg/dL (8.5-10.1) 09/22/19 06:45 Magnesium 1.8 mg/dL (1.8-2.4) 09/22/19 06:45 Ferritin 490 ng/mL (26-388) H 09/22/19 06:45 Total Bilirubin 3.9 mg/dL (0.2-1.0) H 09/22/19 06:40 Conjugated Bilirubin 0.91 mg/dL (0.00-0.20) H 09/21/19 20:40 AST 310 U/L (15-37) H 09/22/19 06:40 ALT 140 U/L (16-63) H 09/22/19 06:40 Alkaline Phosphatase 77 U/L (46-116) 09/21/19 20:40 Lactate Dehydrogenase 431 U/L (85-227) H 09/21/19 20:40 Creatine Kinase > 35655 U/L (39-308) H 09/22/19 06:45 Troponin I 0.31 ng/Ml (<0.06) H* 09/22/19 12:15 C-Reactive Protein 13.75 mg/dL (0.0-0.3) H 09/21/19 20:40 Total Protein 7.0 g/dL (6.4-8.2) 09/21/19 20:40 Albumin 3.7 g/dL (3.4-5.0) 09/21/19 20:40 Lipase 42 U/L (73-393) 09/21/19 20:40 Procalcitonin 3.9 ng/mL 09/21/19 20:40 TSH 0.67 uIU/mL (0.36-3.74) 09/22/19 06:45 Urine Color Analilia (Yellow) 09/21/19 21:45 Urine Clarity Clear (Clear) 09/21/19 21:45 Urine pH 7.5 (5-8) 09/21/19 21:45 Ur Specific [place] 1.020 (1.005-1.025) 09/21/19 21:45 Urine Protein >=300 mg/dL (Negative) H 09/21/19 21:45 Urine Ketones 40 mg/dL (Negative) H 09/21/19 21:45 Urine Blood Large (Negative) H 09/21/19 21:45 Urine Nitrite Negative (Negative) 09/21/19 21:45 Urine Bilirubin Negative (Negative) 09/21/19 21:45 Urine Urobilinogen 0.2 EU/dL (Up TO 0.2) 09/21/19 21:45 Ur Leukocyte Esterase Negative (Negative) 09/21/19 21:45 Urine RBC 3-5 HPF (0-2) H 09/21/19 21:45 Urine WBC Negative HPF (0-5) 09/21/19 21:45 Ur Epithelial Cells Negative HPF (Negative) 09/21/19 21:45 Urine Crystals Negative HPF (Negative) 09/21/19 21:45 Urine Bacteria Rare HPF (Negative) 09/21/19 21:45 Urine Casts 3-5 hyaline LPF (Negative) 09/21/19 21:45 Urine Mucus Trace (Negative) 09/21/19 21:45 Ur Culture Indicated? C&s done as ordered 09/21/19 21:45 Urine Glucose Negative mg/dL (Negative) 09/21/19 21:45
--- NOTE | 2019-09-22 16:00 | PHA.REVIEW ---
Pharmacy Admission Review - Admission Clinical Review (Last Updated 09/22/19 @ 10:32 by Shi Alonzo MD) Discharge planning issues (Acute) DVT prophylaxis (Acute) Transaminitis (Acute) Ambulatory dysfunction (Acute) Neck pain (Acute) Back pain (Acute) Rhabdomyolysis (Acute) Gram-positive cocci bacteremia (Acute) Left inguinal hernia (Acute) Elevated troponin (Acute) Pneumonia (Acute) Sepsis (Acute) Bilateral pneumonia (Acute) Penicillins Allergy (Mild, Unverified 03/20/18 14:02) Skin Rash aspirin Adverse Reaction (Mild, Unverified 03/20/18 14:02) GI Bleeding Height 5 ft 10 in Weight 74.2 kg - Renal Dosing Renal Dosing: BUN 20 mg/dL (7-18) H 09/22/19 06:45 Creatinine 0.93 mg/dL (0.70-1.30) 09/22/19 06:45 Medications needing adjustments: Reviewed (CRCL ~69ML/MIN) - Anticoagulation Anticoagulation: Hgb 12.3 g/dL (13.5-17.5) L 09/22/19 06:40 Hct 35.9 % (40.0-50.0) L 09/22/19 06:40 Plt Count 119 x1000/uL (130-400) L 09/22/19 06:40 INR 1.3 (0.9-1.1) H 09/22/19 06:45 Creatinine 0.93 mg/dL (0.70-1.30) 09/22/19 06:45 DVT Prohphylaxis: Reviewed Medications: Heparin Therapeutic Anticoagulation: N/A - Opiate Usage Evaluate Pain Scale/Pains Meds: N/A - Relevant Labs Sodium 137 mmol/L (136-145) 09/22/19 06:45 Potassium 3.7 mmol/L (3.5-5.1) 09/22/19 06:45 Chloride 105 mmol/L (98-107) 09/22/19 06:45 Magnesium 1.8 mg/dL (1.8-2.4) 09/22/19 06:45 C-Reactive Protein 13.75 mg/dL (0.0-0.3) H 09/21/19 20:40 Electrolytes, C-Reactive P, ESR: Reviewed - DM Control DM Control: Glucose 117 mg/dL (74-106) H 09/22/19 06:45 Insulin Dosing: N/A - Heart Failure/OH Heart Failure/OH: Troponin I 0.31 ng/Ml (<0.06) H* 09/22/19 12:15 - BP Control BP Control: Blood Pressure 110/51 Blood Pressure 130/63 Blood Pressure 124/62 Blood Pressure 140/65 If elevated: N/A - Qtc Review If Elevated: Reviewed (433) - IV to PO Switch IV Medications: Reviewed (IV antibiotics, furosemide, IVF) - Home Meds Home Med List reviewed: Reviewed Relevent Home Meds Not ordered & why?: simvastatin not ordered - Current meds Current Medication Order Review: Reviewed Antibiotic Activity - Pharmacy Antibiotic Review Pharmacy Antibiotic Activity: Reviewed, no change (vancomycin/levofloxacin IV)
[2019-09-22] MEDS: Acetaminophen 500 MG TAB 1000 MG PO ×2 (16:46→23:43)
[2019-09-22] MEDS: Normal Saline 1,000 ML 150 ML IV (17:00)
[2019-09-22] MEDS: Heparin 5,000 UNITS/ML VIAL 5000 UNITS SC (19:09)
[2019-09-22] MEDS: levoFLOXacin 750 MG/150 ML BAG 100 MG IVPB (20:45)
--- NOTE | 2019-09-22 20:45 | DI.CT_ITS ---
EXAM: CT THORACIC LUMBAR SPINE REC CLINICAL HISTORY: back pain post fall TECHNIQUE: COMPARISON: No exams were available for comparison FINDINGS: CT reconstructions of thoracic and lumbar spine were obtained from CT chest/abdomen/pelvis acquisitio n. No thoracic or lumbar spine fracture. Marked degenerative changes noted throughout the thoracic and lumbar spine. IMPRESSION:
--- NOTE | 2019-09-22 22:35 | DI.VRAD_ITS ---
PROCEDURE INFORMATION: Exam: CT LUMBAR Spine Without Contrast Exam date and time: 09/22/2019 8:51 PM Age: 74 years old Clinical indication: Pain in LUMBAR spine; Patient HX: Low back pain after fall on 09/21/19 with leg weakness TECHNIQUE: Imaging protocol: Computed tomography images of the LUMBAR spine without contrast. Radiation optimization: All CT scans at this facility use at least one of these dose optimization techniques: automated exposure control; mA and/or kV adjustment per patient size (includes targeted exams where dose is matched to clinical indication); or iterative reconstruction. COMPARISON: CT abdomen and pelvis 01/14/2018. FINDINGS: Vertebrae: There are 5 lumbar type vertebral bodies. Normal mineralization and alignment. A Schmorl's node is seen in the superior endplate of the L4 vertebral body slightly progressed since the prior exam. A Schmorl's node is also seen within the inferior endplate of L2, unchanged. No acute fracture . Discs/Spinal canal/Neural foramina: Multilevel degenerative changes are seen resulting in disc space narrowing prominent at the L4-L5 level and multilevel facet hypertrophy. L1-L2 level : No significant central canal or foraminal narrowing seen. There is a moderate-sized broad-based disc at the L2-L3 level which along with facet and ligamentous hypertrophy results in severe central canal narrowing. Mild bilateral foraminal stenoses are seen at this level. There is a moderate-sized broad-based disc with osteophytic lipping at the L3-L4 level which along with facet and ligamentous hypertrophy results in moderate central canal narrowing. Mild bilateral foraminal stenoses are seen at this level. There is a moderate-sized broad-based disc at the L4-L5 level which along with prominent facet hypertrophy results in severe central canal narrowing. Mild left and moderate right foraminal stenoses are present. There is a broad-based disc at the L5-S1 disc space which results in moderate central canal stenosis. Prominent facet hypertrophy is also seen. There is mild to moderate bilateral foraminal stenoses. 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 Kidneys and ureters: Bilateral renal parapelvic cyst suspected. Stomach and bowel: Colonic diverticulosis. IMPRESSION: No acute fracture. Degenerative changes throughout the lumbar spine resulting in severe central canal stenosis at the L4-L5 level and moderate stenosis at L3-L4 and L5-S1. Multilevel [id number] foraminal stenosis are seen throughout the lower lumbar spine. Dictated and Authenticated by: Freida Vicente MD. Ordering:ARNALDO Henriquez MD
[2019-09-22 23:16] LABS: COVID-19 RT-PCR UVMMC Result Negative (Negative)
[2019-09-22] MEDS: Melatonin 3 MG TAB PO (23:49)
--- NOTE | 2019-09-23 | DI.US_ITS ---
APPROVED REPORT EXAM: Comprehensive 2D, Doppler, and color-flow Echocardiogram Patient Location: In-Patient Room/Bed: 228 Bench Technician: Ángela Garcia RDCS (AE) Indications: Elevated troponin Other Information Study Quality: Fair. Technically limited study due to body habitus. Conclusion Left Ventricle : The left ventricle is normal size. The overall left ventricular systolic function ap pears normal. There is normal left ventricular wall thickness. There is normal LV segmental wall megan on. The left ventricular diastolic function is normal. LVEF is 55-60%. Right Ventricle : The right ventricle is normal size. The right ventricular systolic function is norm al. Unable to estimate RVSP as IVC was not visualized Atria : The left atrium size is normal. The right atrium size is normal. Valves: There are no hemodynamically significant valvular lesions. Great Vessels : Unable to obtain subcostal imaging due to patient body habitus. There is no prior echocardiogram available for comparison. Wall motion Left Ventricle The left ventricle is normal size. The overall left ventricular systolic function appears normal. The re is normal left ventricular wall thickness. There is normal LV segmental wall motion. The left vent ricular diastolic function is normal. Ventricular Septum was not well visualized. LVEF is 55-60%. Right Ventricle The right ventricle is normal size. The right ventricular systolic function is normal. Unable to grant mate RVSP as IVC was not visualized Atria The left atrium size is normal. The right atrium size is normal. Atrial Septum was not visualized. Aortic Valve Aortic valve is not well visualized. The Aortic valve is sclerotic. There is no aortic valvular steno sis. No aortic regurgitation is present. Mitral Valve The mitral valve is normal in structure. No evidence of mitral valve stenosis. Trace mitral regurgita tion. Tricuspid Valve The tricuspid valve is normal in structure. There is no tricuspid valve stenosis. Trace tricuspid reg urgitation. Pulmonic Valve Pulmonic valve is not well visualized. There is no pulmonic valvular stenosis. There is no pulmonic v alvular regurgitation. Great Vessels The aortic root is normal in size. Aortic arch is not well visualized. Ascending aorta is not well vi sualized. Unable to obtain subcostal imaging due to patient body habitus. 2D Dimensions IVSD d PLAX 0.96 cm M: 0.6-1.2 LV Vol A2C d MOD 82.6 mL LVPW d PLAX 0.91 cm M: 0.6 - 1.2 LV Vol A4C d MOD 100.5 mL LVID d PLAX 4.06 cm M: 4.2 - 5.8 LA vol/ BSA A2C s A-L 14.0 mL/m2 LVDs 3.15 cm M: 2.5 - 4.0 LA vol/ BSA A4C s A-L 12.6 mL/m2 Ao Root d 3.09 cm M: 3.1 - 3.7 LA Vol/ BSA Biplane s A-L 13.3 mL/m2 RA Area A4C 10.64 cm2 LA Area A4C s MOD 10.69 cm2 RA Vol/ BSA A4C s A-L 11.7 mL/m2 LA Area A2C s MOD 11.25 cm2 LV EF Teichholz 44.7 % LV EF A4C MOD 59.2 % LVEF (Ba's) 56.86 % M: 52 - 72 LV EF A2C MOD 55.8 % LV Volume 69.73 mL M: 62 - 150 LV EF Biplane MOD 56.9 % LV Volume Index 36.50 mL/m2 M: 34 - 74 LV Vol Biplane MOD 91.6 mL FS 21.80 % M-Mode TAPSE 2.57 cm (M/F) >1.7 LV Diastology E Decel Time 362.00 (160-240 msec) E/A Ratio 0.7 MV E' medial 0.072 (>0.07 m/s) MV E Vmax 0.52 (0.4-1.3 m/s) LV E/e MED 7.20 (<14) MV A Vmax 0.70 (0.4-1.3 m/s) MV E' lateral 0.098 (>0.1 m/s) MV E/A Ratio 0.71 LV E/e LAT 5.30 (<14) MV E/E' medial 7.24 MV E/E' lateral 5.31 E Peak Velocity 0.52 m/s A Peak Velocity 0.73 m/s Aortic Valve LVOT Area 2.99 cm2 AoV Area Vmax 2.25 cm2 LVOT Vmax 0.94 m/s AoV Area/ BSA (Vmax) 1.18 cm2/m2 LVOT Mean Julien. 0.62 m/s JOHN Mean Julien. 2.00 cm2 LVOT Peak Grad 3.5 mmHg JOHN Mean Julien. Index 1.05 cm2/m2 LVOT Mean Grad 1.8 mmHg LVOT VTI 0.176 m LVOT Diam s 1.95 cm (M/F) 1.5-2.5 AoV Vmax 1.24 (0.5-1.3 m/s) Velocity Ratio 0.75 AoV Mean Julien. 0.92 m/s AoV Peak Grad 6.2 mmHg LVOT SV 52.63 mL AoV Mean Grad 3.8 (<5 mmHg) AoV VTI 0.192 (0.18-0.25 m) AoV Area VTI 2.75 (2.5-4.5 cm2) AoV Area/ BSA (VTI) 1.44 cm/m2 Mitral Valve MV DT 362 (160-240 msec) MV PHT 105 msec MV Area PHT 2.10 cm2 Pulmonary Valve PV Vmax 0.86 (0.5-1.5 m/s) RVOT Peak Gr. 0.15 mmHg PV Peak Grad 3.0 mmHg RVOT Mean Gr. 0.10 mmHg PV Mean Grad 1.7 mmHg RVOT VTI 0.031 m PV VTI 0.152 m RVOT Vmax 0.19 m/s Tricuspid Valve TR Peak Grad 13.6 mmHg TR Vmax 1.85 m/s
--- NOTE | 2019-09-23 | DI.MRI_ITS ---
EXAM: MR CERVICAL SPINE WO/W CLINICAL HISTORY: Sepsis, neck and shoulder pain, LE weakness TECHNIQUE: Multiplanar multisequence MRI of the cervical spine was performed. CONTRAST MATERIAL: IV Contrast: 15 ML of Dotarem contrast administered. COMPARISON: MR THORACIC SPINE WO/W from 09/23/2019 FINDINGS: The examination is severely limited due to patient motion artifact. There is no evidence of tonsillar ectopia. There is normal signal in the spinal cord. There is reversal of the normal cervical lordosis centered at C4. At C7-T1, there is no focal disc herniation, central spinal canal or neural foraminal stenosis. At C6-C7, there is no focal disc herniation or central spinal canal stenosis. Degenerative changes o f the uncovertebral joints cause bilateral neural foraminal narrowing. At C5-C6, there is prominence of the osteophyte disc complex causing mild narrowing of the central sp inal canal. Degenerative changes are seen at the uncovertebral joints causing mild bilateral neural foraminal narrowing. At C4-C5, there is marked prominence of the osteophyte disc complex causing moderate central spinal c anal stenosis. The AP diameter of the spinal canal at this level measures 7 mm. There are hypertrop hic changes of the uncovertebral joints and facets causing moderately severe bilateral neural foramin al stenosis. At C3-C4, there is mild prominence of osteophyte disc complex causing mild narrowing of the central s suzanne canal. There are degenerative changes of the uncovertebral joints causing moderately severe bi lateral neural foraminal stenosis. At C2-C3, no focal disc herniation, central spinal canal or neural foraminal stenosis is present. No findings are seen to suggest discitis. No abscess is identified. IMPRESSION: 1. Multilevel degenerative changes in the cervical spine. 2. No findings to suggest discitis or abscess. DATA REPOSITORY:
--- NOTE | 2019-09-23 | DI.MRI_ITS ---
EXAM: MR THORACIC SPINE WO/W CLINICAL HISTORY: back pain, sepsis, LE weakness, ?epidural abscess. TECHNIQUE: Multiplanar multisequence MRI of the Thoracic spine was performed. CONTRAST MATERIAL: IV Contrast: 15 mL of Dotarem contrast administered. COMPARISON: CT THORACIC LUMBAR SPINE REC from 09/21/2019 FINDINGS: The study is severely limited due to patient motion artifact. There is normal signal in the thoracic spinal cord. No significant central spinal canal or neural foraminal stenosis is seen in the thoracic spine. There is hyperintense signal seen on both the T1 and T2 weighted images in the T8 vertebral body like ly reflecting benign lesion such as a hemangioma or fatty rest. No enhancing lesion is identified. No evidence of an abscess is appreciated. No findings to suggest discitis are present. IMPRESSION: 1. Severely limited examination due to patient motion artifact. 2. No findings to suggest discitis or abscess. 3. No significant central spinal canal or neural foraminal stenosis. DATA REPOSITORY:
[2019-09-23 03:30] VITALS: BP 142/85; PULSE 85; RESP 24; TEMP 37.6; O2SAT 96
[2019-09-23] MEDS: Normal Saline 1,000 ML 150 ML IV ×3 (04:06→20:27)
[2019-09-23] MEDS: Levothyroxine 25 MCG TAB PO (06:59)
[2019-09-23] MEDS: Heparin 5,000 UNITS/ML VIAL 5000 UNITS SC ×2 (06:59→18:07)
[2019-09-23 07:08] LABS: HCT 35.7 % (40.0-50.0); HGB 12.5 g/dL (13.5-17.5); Mean Corpuscular Hemoglobin 32.1 pg (27.0-33.0); Mean Corpuscular Volume 91.5 fL (80-95); Mean Platelet Volume 9.7 fL (8.0-11.0); RBC Distribution Width 12.4 % (11.8-14.1)
[2019-09-23 07:10] VITALS: PULSE 90
[2019-09-23 07:34] LABS: Absolute Lymphocyte Count 0.38 k/cumm (1.2-3.4); Absolute Neutrophil Count 6.83 k/cumm (1.2-6.7); Atypical Lymphocytes % 1; Platelet Count 100 x1000/uL (130-400)
[2019-09-23 07:35] LABS: Diff Comment Manual Differential; RBC Morphology Normal
[2019-09-23 07:54] LABS: ALT 173 U/L (16-63); AST 299 U/L (15-37); Albumin 2.6 g/dL (3.4-5.0); Alkaline Phosphatase 64 U/L (46-116); Anion Gap 5.7 mmol/L (3-11); BUN 15 mg/dL (7-18); Bilirubin, Direct 1.53 mg/dL (0.00-0.20); Bilirubin, Total 3.3 mg/dL (0.2-1.0); C-Reactive Protein 17.35 mg/dL (0.0-0.3); CO2 26.3 mmol/L (21.0-32.0); CREATININE 0.95 mg/dL (0.70-1.30); Calcium 8.3 mg/dL (8.5-10.1); Chloride 104 mmol/L (98-107); Glucose 116 mg/dL (74-106); Potassium 3.7 mmol/L (3.5-5.1); Sodium 136 mmol/L (136-145); Total Protein 5.9 g/dL (6.4-8.2)
[2019-09-23 08:10] LABS: Troponin I 0.11 ng/Ml (<0.06)
[2019-09-23 08:20] VITALS: TEMP 38.8
[2019-09-23] MEDS: Acetaminophen 500 MG TAB 1000 MG PO ×3 (08:20→23:38)
[2019-09-23] MEDS: Furosemide 20 MG/2 ML VIAL IVP (08:20)
[2019-09-23] MEDS: Tamsulosin 0.4 MG CAPCR PO ×2 (08:20→20:27)
[2019-09-23] MEDS: Pantoprazole 40 MG VIAL IVP (08:20)
[2019-09-23] MEDS: Finasteride 5 MG TAB PO (08:21)
[2019-09-23 08:24] LABS: Creatine Kinase 7368 U/L (39-308)
[2019-09-23 08:26] LABS: Ferritin 737 ng/mL (26-388)
--- NOTE | 2019-09-23 10:07 | DI.CT_ITS ---
EXAM: CT CERVICAL SPINE WO CLINICAL HISTORY: neck pain post fall TECHNIQUE: COMPARISON: No exams were available for comparison FINDINGS: CT examination of the cervical spine was performed utilizing multi slice acquisition and multi planar reconstruction. Note is made of a developmental defect of the posterior aspect of the arch of C1. The tracheal laryngeal structures appear intact. The visualized lung apices are clear. No cervical mass or adenopathy identified. There is a mild torticollis to the right. There are marked degenerative changes of the facet joints and uncovertebral joints. There is no evidence of acute cervical spine fracture or facet dislocation . IMPRESSION: No evidence of acute cervical spine injury.
--- NOTE | 2019-09-23 10:21 | DI.US_ITS ---
EXAM: US EXTREMITY VENOUS BI CLINICAL HISTORY: BLE's - elevated ddimer, concern for DVT TECHNIQUE: Ultrasound performed using standard protocol. COMPARISON: No exams were available for comparison FINDINGS: Duplex evaluation of the deep venous system of both lower extremities was performed according to the usual protocol. Note is made of a left Mullins's cyst measuring about 54 x 32 x 19 millimeters in diam eter, this contains an apparent small calcification but otherwise is fluid echogenicity. There is no evidence of deep venous thrombosis or superficial thrombosis in right or left lower extre mity. IMPRESSION: Negative examination for DVT. Left Mullins's cyst noted. DATA REPOSITORY:
[2019-09-23 12:02] LABS: Hepatitis A Antibody IgM Negative (Negative); Hepatitis B Core Antibody Negative (Negative); Hepatitis B surface Ag Negative (Negative); Hepatitis C Ab w Rflx HCV PCR Negative (Negative)
--- NOTE | 2019-09-23 15:46 | CMPROGNOTE_ITS ---
- If Service Date Differs Date of service: 09/23/19 Time of Service: 15:46 Care Management Progress Note S/O: CM met with Willy (Dawit) today at the bedside he is alert and engaged. He makes lots of jokes during the visit. Dawit states he was weak at home and dehydrated he states when he went down to the floor he was unable to get back up. He does not have lifeline at home. Dawit has a supportive niece and nephew that are willing to assist him when he needs it. CM contacted his niece Patricia navas and she request CM review lifeline and home delivery meals with him. She states the family is willing to support him anyway they can. Dawit is having a spine CT today, LE ultra sound and echo. He is being treated with IV abx and IV fluids. CM will continue to provide support and coordination of discharge services. A: Dawit is a 74 year old male admitted with Pneumonia, fever, rhabdomyolysis an d elevated troponin P: Dawit will be discharged home when he is medically ready for discharge, anticipate he will need additional supports at time of discharge to be determined based on his recovery. He will transport home with family at time of discharge.
[2019-09-23 16:28] VITALS: BP 157/79; PULSE 81; RESP 18; TEMP 38; O2SAT 97
--- NOTE | 2019-09-23 17:47 | W.PM.PROGNOT ---
Date of Service Date of service: 09/23/19 Time of Service: 17:47 Assessment and Plan Assessment and plan (1) Sepsis: Status: Acute Assessment and plan: Due to Staph aureus (sensitivities pending) bacteremia and PNA, present on admission. Repeat blood cultures are pending. Remains febrile, but fever curve is slanting in the right direction. Continue vanco/levofloxacin. Await results of MRIs of the spine and MRI brain. Continue to trend procalcitonin/CRP. (2) Gram-positive cocci bacteremia: Status: Acute Assessment and plan: As above. (3) Bilateral pneumonia: Status: Acute Assessment and plan: As above (4) Rhabdomyolysis: Status: Acute Assessment and plan: Likely result of prolonged time spent on the floor post fall. CPK is better with current management. Continue IVF/add lasix. Trend I/O, daily weight. (5) Elevated troponin: Status: Acute Assessment and plan: In setting of sepsis but also in acute rhabdomyolysis. The patient does not have signs/sx of cardiac issues at this time, but is unreliable historian. His echo does not show any evidence of wall motion abnormalities. At this time, concern for his troponinemia being of cardiac origin is low. No indication for asa//plavix/heparin. Will need routine stress test as outpatient once current illness resolved. COVID negative. (6) Left inguinal hernia: Status: Chronic Assessment and plan: Evaluated by general surgery. Patient has a benign exam - no pain, and on imaging no bowel within the hernia. Follow up as outpatient. No surgical intervention planned as inpatient. (7) Back pain: Status: Acute Assessment and plan: Does have evidence of severe spinal stenosis in lumbar spine. Await MRI back. (8) Neck pain: Status: Acute Assessment and plan: CT c-spine negative. Await MRI. (9) Transaminitis: Status: Acute Assessment and plan: Expected in setting of rhabdomyolysis. No further workup indicated. (10) Ambulatory dysfunction: Status: Acute Assessment and plan: Once MRI imaging available, will obtain PT consult (11) DVT prophylaxis: Status: Acute Assessment and plan: Continue low dose SC heparin, carefully monitoring plts (12) Discharge planning issues: Status: Acute Assessment and plan: DNR/DNI Subjective Subjective Interval history since last seen: Mr Hanson got very confused overnight - A&Ox1. He is doing better today, but reports having an episode of seeing a bright light out of his left eye. He was unable to tolerate all of the ordered MRIs today due to pain/claustrophobia. He feels tired, denies dizziness, chest pain, shortness of breath, nausea, vomiting. He continues to report neck pain and pain on turning to the left. He now states that the neck pain happened before the fall. He changed that story several times even during our convesation today. He also stated that a few years ago he was a patient [place] the [facility] [place] [facility] same [place]. Exam Narrative Exam Narrative: General: pleasant middle-aged/elderly male looks younger than his stated age, A&Ox3, but the history that he is providing keeps changing HEENT: EOMI, MMM; unable to turn his head to the left without pain Heart: RRR, no m/r/g Lungs: CTAB Abdomen: soft, nontender, nondistended Extremities: no e/c/c BLE's; in bed, 5/5 BLE strength Skin: multiple ecchymoses on back, RUE Spin: TTP neck, mid-back; not so much lower back Objective Objective Clinical Data: Abnormal lab results 09/23/19 09/23/19 Range/Units 06:45 06:45 RBC 3.90 L (4.50-6.00) m/cumm Hgb 12.5 L (13.5-17.5) g/dL Hct 35.7 L (40.0-50.0) % Plt Count 100 L (130-400) x1000/uL Absolute Neutrophils 6.83 H (1.2-6.7) k/cumm Absolute Lymphocytes 0.38 L (1.2-3.4) k/cumm Glucose 116 H (74-106) mg/dL Calcium 8.3 L (8.5-10.1) mg/dL Ferritin 737 H (26-388) ng/mL Total Bilirubin 3.3 H (0.2-1.0) mg/dL Conjugated Bilirubin 1.53 H (0.00-0.20) mg/dL AST 299 H (15-37) U/L ALT 173 H (16-63) U/L Creatine Kinase 7368 H (39-308) U/L Troponin I 0.11 H* (<0.06) ng/Ml C-Reactive Protein 17.35 H (0.0-0.3) mg/dL Total Protein 5.9 L (6.4-8.2) g/dL Albumin 2.6 L (3.4-5.0) g/dL Vital Signs Temperature 38 C H 09/23/19 16:28 Temperature Source Tympanic 09/23/19 16:28 Pulse 81 09/23/19 16:28 Pulse Rhythm Regular 09/23/19 16:47 Respiratory Rate 18 09/23/19 16:28 Respiratory Effort Non-Labored 09/23/19 16:47 Respiratory Depth Normal 09/23/19 16:47 Respiratory Pattern Normal 09/23/19 16:47 Blood Pressure 157/79 H 09/23/19 16:28 Blood Pressure Position Sitting 09/21/19 20:33 Pulse Oximetry 97 09/23/19 16:28 Oxygen Delivery Method Room Air 09/23/19 16:28 Oxygen Flow Rate 0 09/23/19 16:28 Pain Level 0 09/23/19 16:28 Comment 09/23/19 03:30 Intake & Output 09/22/19 09/23/19 09/23/19 23:59 11:59 23:59 Intake Total 1200 / 1350 450 / 450 0 / 450 Output Total 850 / 1100 Balance 350 / 250 450 / 450 0 / 450 Weight 76.5 kg Intake: IV 1000 / 1150 200 / 200 Oral 200 / 200 250 / 250 0 / 250 Output: Urine 850 / 1100 Other: Urine Color Dark Analilia Dark Analilia Dark Analilia Urine Appearance Cloudy Clear Comment 10ml NS used to inflate the balloon. coca cola colored urine Voiding Methods Urinal Laboratory Results WBC 7.50 k/cumm (4.4-10.8) D 09/23/19 06:45 RBC 3.90 m/cumm (4.50-6.00) L 09/23/19 06:45 Hgb 12.5 g/dL (13.5-17.5) L 09/23/19 06:45 Hct 35.7 % (40.0-50.0) L 09/23/19 06:45 MCV 91.5 fL (80-95) 09/23/19 06:45 MCH 32.1 pg (27.0-33.0) 09/23/19 06:45 MCHC 35.0 g/dL (32.0-36.0) 09/23/19 06:45 RDW 12.4 % (11.8-14.1) 09/23/19 06:45 Plt Count 100 x1000/uL (130-400) L 09/23/19 06:45 MPV 9.7 fL (8.0-11.0) 09/23/19 06:45 Immature Gran % 0.0 % 09/23/19 06:45 Neutrophils % 81.0 09/23/19 06:45 Band Neutrophils % 10.0 % 09/23/19 06:45 Lymphocytes % 4.0 09/23/19 06:45 Atypical Lymphs % 1 09/23/19 06:45 Monocytes % 4.0 09/23/19 06:45 Eosinophils % 0.0 09/23/19 06:45 Basophils % 0.0 09/23/19 06:45 Absolute Neutrophils 6.83 k/cumm (1.2-6.7) H 09/23/19 06:45 Absolute Lymphocytes 0.38 k/cumm (1.2-3.4) L 09/23/19 06:45 Absolute Monocytes 0.30 k/cumm (0.11-0.7) 09/23/19 06:45 Absolute Eosinophils 0.00 k/cumm (0.0-0.7) 09/23/19 06:45 Absolute Basophils 0.00 k/cumm (0.0-0.2) 09/23/19 06:45 Differential Comment Manual differential 09/23/19 06:45 RBC Morphology Normal 09/23/19 06:45 PT 13.1 sec (9.3-11.0) H 09/22/19 06:45 INR 1.3 (0.9-1.1) H 09/22/19 06:45 D-Dimer 4475 ng/mlFEU (<500) H 09/22/19 06:45 VBG pH 7.43 (7.35-7.45) 09/21/19 20:40 VBG pCO2 42 mm/Hg (34-47) 09/21/19 20:40 VBG pO2 26 mm/Hg (28-44) L 09/21/19 20:40 VBG HCO3 28 mmol/L (22-28) 09/21/19 20:40 VBG Total CO2 26 mmol/L (22-29) 09/21/19 20:40 VBG O2 Saturation 49 % (70-80) L 09/21/19 20:40 VBG Base Excess 3.9 mmol/L (-3-3) H 09/21/19 20:40 Sodium 136 mmol/L (136-145) 09/23/19 06:45 Potassium 3.7 mmol/L (3.5-5.1) 09/23/19 06:45 Chloride 104 mmol/L (98-107) 09/23/19 06:45 Carbon Dioxide 26.3 mmol/L (21.0-32.0) 09/23/19 06:45 Anion Gap 5.7 mmol/L (3-11) 09/23/19 06:45 BUN 15 mg/dL (7-18) 09/23/19 06:45 Creatinine 0.95 mg/dL (0.70-1.30) 09/23/19 06:45 Estimated GFR/1.73 m2 >= 60.00 (mL/min/1.73m2) 09/23/19 06:45 Glucose 116 mg/dL (74-106) H 09/23/19 06:45 Lactate 1.1 mmol/L (0.6-1.4) 09/22/19 08:07 Calcium 8.3 mg/dL (8.5-10.1) L 09/23/19 06:45 Magnesium 1.8 mg/dL (1.8-2.4) 09/22/19 06:45 Ferritin 737 ng/mL (26-388) H 09/23/19 06:45 Total Bilirubin 3.3 mg/dL (0.2-1.0) H 09/23/19 06:45 Conjugated Bilirubin 1.53 mg/dL (0.00-0.20) H 09/23/19 06:45 AST 299 U/L (15-37) H 09/23/19 06:45 ALT 173 U/L (16-63) H 09/23/19 06:45 Alkaline Phosphatase 64 U/L (46-116) 09/23/19 06:45 Lactate Dehydrogenase 431 U/L (85-227) H 09/21/19 20:40 Creatine Kinase 7368 U/L (39-308) H 09/23/19 06:45 Troponin I 0.11 ng/Ml (<0.06) H* 09/23/19 06:45 C-Reactive Protein 17.35 mg/dL (0.0-0.3) H 09/23/19 06:45 Total Protein 5.9 g/dL (6.4-8.2) L 09/23/19 06:45 Albumin 2.6 g/dL (3.4-5.0) L 09/23/19 06:45 Lipase 42 U/L (73-393) 09/21/19 20:40 Procalcitonin 3.9 ng/mL 09/21/19 20:40 TSH 0.67 uIU/mL (0.36-3.74) 09/22/19 06:45 Urine Color Analilia (Yellow) 09/21/19 21:45 Urine Clarity Clear (Clear) 09/21/19 21:45 Urine pH 7.5 (5-8) 09/21/19 21:45 Ur Specific [place] 1.020 (1.005-1.025) 09/21/19 21:45 Urine Protein >=300 mg/dL (Negative) H 09/21/19 21:45 Urine Ketones 40 mg/dL (Negative) H 09/21/19 21:45 Urine Blood Large (Negative) H 09/21/19 21:45 Urine Nitrite Negative (Negative) 09/21/19 21:45 Urine Bilirubin Negative (Negative) 09/21/19 21:45 Urine Urobilinogen 0.2 EU/dL (Up TO 0.2) 09/21/19 21:45 Ur Leukocyte Esterase Negative (Negative) 09/21/19 21:45 Urine RBC 3-5 HPF (0-2) H 09/21/19 21:45 Urine WBC Negative HPF (0-5) 09/21/19 21:45 Ur Epithelial Cells Negative HPF (Negative) 09/21/19 21:45 Urine Crystals Negative HPF (Negative) 09/21/19 21:45 Urine Bacteria Rare HPF (Negative) 09/21/19 21:45 Urine Casts 3-5 hyaline LPF (Negative) 09/21/19 21:45 Urine Mucus Trace (Negative) 09/21/19 21:45 Ur Culture Indicated? C&s done as ordered 09/21/19 21:45 Urine Glucose Negative mg/dL (Negative) 09/21/19 21:45 COVID-19 PCR Negative (Negative) 09/21/19 20:50 Nasopharyn COVID-19 PCR Not Applicable 09/21/19 20:50 Hepatitis A IgM Ab Negative (Negative) 09/21/19 23:55 Hep Bs Antigen Negative (Negative) 09/21/19 23:55 Hep B Core Total Ab Negative (Negative) 09/21/19 23:55 Hepatitis C Antibody Negative (Negative) 09/21/19 23:55 Ref Test Perform Site [facility] lab 09/21/19 20:50 echo: Left Ventricle : The left ventricle is normal size. The overall left ventricular systolic function appears normal. There is normal left ventricular wall thickness. There is normal LV segmental wall motion. The left ventricular diastolic function is normal. LVEF is 55-60%. Right Ventricle : The right ventricle is normal size. The right ventricular systolic function is normal. Unable to estimate RVSP as IVC was not visualized Atria : The left atrium size is normal. The right atrium size is normal. Valves: There are no hemodynamically significant valvular lesions. Great Vessels : Unable to obtain subcostal imaging due to patient body habitus. There is no prior echocardiogram available for comparison. c-spine CT: No evidence of acute cervical spine injury. CT thoracic/lumbar spine: No thoracic or lumbar spine fracture. Marked degenerative changes noted throughout the thoracic and lumbar spine. venous dopplers BLE's: Negative examination for DVT. Left Mullins's cyst noted.
[2019-09-23 19:30] VITALS: BP 138/64; PULSE 90; RESP 20; TEMP 38.7; O2SAT 94
[2019-09-23] MEDS: levoFLOXacin 750 MG/150 ML BAG 100 MG IVPB (20:27)
[2019-09-24] VITALS (8 sets, daily range): BP systolic 138–169; BP diastolic 66–74; PULSE 70–185; RESP 17–19; TEMP 36.7–37.6; O2SAT 94–97
[2019-09-24] MEDS: Verapamil 5 MG/2 ML VIAL (05:00)
--- NOTE | 2019-09-24 05:09 | PGE_ITS ---
Date of Service Date of service: 09/24/19 Time of Service: 05:10 Assessment and Plan Assessment and plan (1) PSVT (paroxysmal supraventricular tachycardia): Status: Acute Assessment and plan: SEE ABOVE Subjective Subjective Interval history since last seen: Called for tachycardia of 168. Patient asymptomatic, specifically denies CP or SOB. Monitor shows narrow complex regular tachycardia, EKG PSVT with NSSTTWCs. Initial BP 130s systolic, pulse 168 and regular; shortly thereafter BP 80s/sys. Patient continues to feel fine. CSP applied w/o effect. Patient given 5 mg Verapamil IV with prompt taoist NSR. BP 118/sys. pulse 99. Post conversion EKG WNL. A/P: PSVT, resolved. Will check electrolytes, Mg, troponin (note TSH WNL 09/21). Objective Objective Clinical Data: Abnormal lab results 09/23/19 09/23/19 Range/Units 06:45 06:45 RBC 3.90 L (4.50-6.00) m/cumm Hgb 12.5 L (13.5-17.5) g/dL Hct 35.7 L (40.0-50.0) % Plt Count 100 L (130-400) x1000/uL Absolute Neutrophils 6.83 H (1.2-6.7) k/cumm Absolute Lymphocytes 0.38 L (1.2-3.4) k/cumm Glucose 116 H (74-106) mg/dL Calcium 8.3 L (8.5-10.1) mg/dL Ferritin 737 H (26-388) ng/mL Total Bilirubin 3.3 H (0.2-1.0) mg/dL Conjugated Bilirubin 1.53 H (0.00-0.20) mg/dL AST 299 H (15-37) U/L ALT 173 H (16-63) U/L Creatine Kinase 7368 H (39-308) U/L Troponin I 0.11 H* (<0.06) ng/Ml C-Reactive Protein 17.35 H (0.0-0.3) mg/dL Total Protein 5.9 L (6.4-8.2) g/dL Albumin 2.6 L (3.4-5.0) g/dL Vital Signs Temperature 36.7 C 09/24/19 03:43 Temperature Source Tympanic 09/24/19 03:43 Pulse 70 09/24/19 03:43 Pulse Rhythm Regular 09/23/19 19:45 Respiratory Rate 19 09/24/19 03:43 Respiratory Effort Non-Labored 09/23/19 19:45 Respiratory Depth Normal 09/23/19 19:45 Respiratory Pattern Normal 09/23/19 19:45 Blood Pressure 153/74 H 09/24/19 03:43 Blood Pressure Position Sitting 09/21/19 20:33 Pulse Oximetry 97 09/24/19 03:43 Oxygen Delivery Method Room Air 09/24/19 03:43 Oxygen Flow Rate 0 09/24/19 03:43 Pain Level 0 09/23/19 16:28 Comment 09/23/19 03:30 Intake & Output 09/23/19 09/23/19 09/24/19 11:59 23:59 11:59 Intake Total 650 / 1850 1200 / 1850 Output Total 725 / 725 550 / 550 Balance 650 / 1125 475 / 1125 -550 / -550 Weight 76.5 kg Intake: IV 400 / 1600 1200 / 1600 Oral 250 / 250 0 / 250 Output: Urine 725 / 725 550 / 550 Other: Urine Color Dark Analilia Yellow Dark Analilia Urine Appearance Clear Clear Comment coca cola colored urine Stool Size Moderate Stool Characteristics Formed Laboratory Results WBC 7.50 k/cumm (4.4-10.8) D 09/23/19 06:45 RBC 3.90 m/cumm (4.50-6.00) L 09/23/19 06:45 Hgb 12.5 g/dL (13.5-17.5) L 09/23/19 06:45 Hct 35.7 % (40.0-50.0) L 09/23/19 06:45 MCV 91.5 fL (80-95) 09/23/19 06:45 MCH 32.1 pg (27.0-33.0) 09/23/19 06:45 MCHC 35.0 g/dL (32.0-36.0) 09/23/19 06:45 RDW 12.4 % (11.8-14.1) 09/23/19 06:45 Plt Count 100 x1000/uL (130-400) L 09/23/19 06:45 MPV 9.7 fL (8.0-11.0) 09/23/19 06:45 Immature Gran % 0.0 % 09/23/19 06:45 Neutrophils % 81.0 09/23/19 06:45 Band Neutrophils % 10.0 % 09/23/19 06:45 Lymphocytes % 4.0 09/23/19 06:45 Atypical Lymphs % 1 09/23/19 06:45 Monocytes % 4.0 09/23/19 06:45 Eosinophils % 0.0 09/23/19 06:45 Basophils % 0.0 09/23/19 06:45 Absolute Neutrophils 6.83 k/cumm (1.2-6.7) H 09/23/19 06:45 Absolute Lymphocytes 0.38 k/cumm (1.2-3.4) L 09/23/19 06:45 Absolute Monocytes 0.30 k/cumm (0.11-0.7) 09/23/19 06:45 Absolute Eosinophils 0.00 k/cumm (0.0-0.7) 09/23/19 06:45 Absolute Basophils 0.00 k/cumm (0.0-0.2) 09/23/19 06:45 Differential Comment Manual differential 09/23/19 06:45 RBC Morphology Normal 09/23/19 06:45 PT 13.1 sec (9.3-11.0) H 09/22/19 06:45 INR 1.3 (0.9-1.1) H 09/22/19 06:45 D-Dimer 4475 ng/mlFEU (<500) H 09/22/19 06:45 VBG pH 7.43 (7.35-7.45) 09/21/19 20:40 VBG pCO2 42 mm/Hg (34-47) 09/21/19 20:40 VBG pO2 26 mm/Hg (28-44) L 09/21/19 20:40 VBG HCO3 28 mmol/L (22-28) 09/21/19 20:40 VBG Total CO2 26 mmol/L (22-29) 09/21/19 20:40 VBG O2 Saturation 49 % (70-80) L 09/21/19 20:40 VBG Base Excess 3.9 mmol/L (-3-3) H 09/21/19 20:40 Sodium 136 mmol/L (136-145) 09/23/19 06:45 Potassium 3.7 mmol/L (3.5-5.1) 09/23/19 06:45 Chloride 104 mmol/L (98-107) 09/23/19 06:45 Carbon Dioxide 26.3 mmol/L (21.0-32.0) 09/23/19 06:45 Anion Gap 5.7 mmol/L (3-11) 09/23/19 06:45 BUN 15 mg/dL (7-18) 09/23/19 06:45 Creatinine 0.95 mg/dL (0.70-1.30) 09/23/19 06:45 Estimated GFR/1.73 m2 >= 60.00 (mL/min/1.73m2) 09/23/19 06:45 Glucose 116 mg/dL (74-106) H 09/23/19 06:45 Lactate 1.1 mmol/L (0.6-1.4) 09/22/19 08:07 Calcium 8.3 mg/dL (8.5-10.1) L 09/23/19 06:45 Magnesium 1.8 mg/dL (1.8-2.4) 09/22/19 06:45 Ferritin 737 ng/mL (26-388) H 09/23/19 06:45 Total Bilirubin 3.3 mg/dL (0.2-1.0) H 09/23/19 06:45 Conjugated Bilirubin 1.53 mg/dL (0.00-0.20) H 09/23/19 06:45 AST 299 U/L (15-37) H 09/23/19 06:45 ALT 173 U/L (16-63) H 09/23/19 06:45 Alkaline Phosphatase 64 U/L (46-116) 09/23/19 06:45 Lactate Dehydrogenase 431 U/L (85-227) H 09/21/19 20:40 Creatine Kinase 7368 U/L (39-308) H 09/23/19 06:45 Troponin I 0.11 ng/Ml (<0.06) H* 09/23/19 06:45 C-Reactive Protein 17.35 mg/dL (0.0-0.3) H 09/23/19 06:45 Total Protein 5.9 g/dL (6.4-8.2) L 09/23/19 06:45 Albumin 2.6 g/dL (3.4-5.0) L 09/23/19 06:45 Lipase 42 U/L (73-393) 09/21/19 20:40 Procalcitonin 3.9 ng/mL 09/21/19 20:40 TSH 0.67 uIU/mL (0.36-3.74) 09/22/19 06:45 Urine Color Analilia (Yellow) 09/21/19 21:45 Urine Clarity Clear (Clear) 09/21/19 21:45 Urine pH 7.5 (5-8) 09/21/19 21:45 Ur Specific [place] 1.020 (1.005-1.025) 09/21/19 21:45 Urine Protein >=300 mg/dL (Negative) H 09/21/19 21:45 Urine Ketones 40 mg/dL (Negative) H 09/21/19 21:45 Urine Blood Large (Negative) H 09/21/19 21:45 Urine Nitrite Negative (Negative) 09/21/19 21:45 Urine Bilirubin Negative (Negative) 09/21/19 21:45 Urine Urobilinogen 0.2 EU/dL (Up TO 0.2) 09/21/19 21:45 Ur Leukocyte Esterase Negative (Negative) 09/21/19 21:45 Urine RBC 3-5 HPF (0-2) H 09/21/19 21:45 Urine WBC Negative HPF (0-5) 09/21/19 21:45 Ur Epithelial Cells Negative HPF (Negative) 09/21/19 21:45 Urine Crystals Negative HPF (Negative) 09/21/19 21:45 Urine Bacteria Rare HPF (Negative) 09/21/19 21:45 Urine Casts 3-5 hyaline LPF (Negative) 09/21/19 21:45 Urine Mucus Trace (Negative) 09/21/19 21:45 Ur Culture Indicated? C&s done as ordered 09/21/19 21:45 Urine Glucose Negative mg/dL (Negative) 09/21/19 21:45 COVID-19 PCR Negative (Negative) 09/21/19 20:50 Nasopharyn COVID-19 PCR Not Applicable 09/21/19 20:50 Hepatitis A IgM Ab Negative (Negative) 09/21/19 23:55 Hep Bs Antigen Negative (Negative) 09/21/19 23:55 Hep B Core Total Ab Negative (Negative) 09/21/19 23:55 Hepatitis C Antibody Negative (Negative) 09/21/19 23:55 Ref Test Perform Site [facility] lab 09/21/19 20:50
[2019-09-24] MEDS: Levothyroxine 25 MCG TAB PO (05:33)
[2019-09-24] MEDS: Heparin 5,000 UNITS/ML VIAL 5000 UNITS SC (05:33)
[2019-09-24 05:48] LABS: Abs Immature Grans 0.03 k/cumm (0.0-0.09); HCT 37.8 % (40.0-50.0); HGB 13.3 g/dL (13.5-17.5); Mean Corp. HGB Concentration 35.2 g/dL (32.0-36.0); Mean Corpuscular Hemoglobin 31.4 pg (27.0-33.0); Mean Corpuscular Volume 89.4 fL (80-95); RBC 4.23 m/cumm (4.50-6.00); RBC Distribution Width 12.1 % (11.8-14.1)
[2019-09-24 06:06] LABS: Platelet Count 95 x1000/uL (130-400)
[2019-09-24 06:07] LABS: Absolute Lymphocyte Count 0.28 k/cumm (1.2-3.4); Absolute Monocyte Count 0.17 k/cumm (0.11-0.7); Absolute Neutrophil Count 5.06 k/cumm (1.2-6.7); Diff Comment Manual Differential; Polychromasia Present
[2019-09-24 06:10] LABS: Troponin I 0.08 ng/Ml (<0.06)
[2019-09-24 06:11] LABS: Anion Gap 7.6 mmol/L (3-11); BUN 15 mg/dL (7-18); C-Reactive Protein 13.76 mg/dL (0.0-0.3); CO2 26.4 mmol/L (21.0-32.0); CREATININE 1.17 mg/dL (0.70-1.30); Calcium 8.2 mg/dL (8.5-10.1); Chloride 104 mmol/L (98-107); Glucose 114 mg/dL (74-106); Magnesium 1.6 mg/dL (1.8-2.4); Potassium 3.5 mmol/L (3.5-5.1); Sodium 138 mmol/L (136-145)
[2019-09-24 06:14] LABS: Creatine Kinase 4407 U/L (39-308)
[2019-09-24] MEDS: Normal Saline 1,000 ML 150 ML IV ×2 (06:31→18:03)
[2019-09-24] MEDS: MORPHine 2 MG/ML SYR 1 MG IVP (08:39)
[2019-09-24] MEDS: LORazepam 2 MG/ML VIAL 0.5 MG IVP ×2 (08:39→10:21)
[2019-09-24] MEDS: Normal Saline Flush 10 ML SYR IVP ×3 (08:40→11:13)
--- NOTE | 2019-09-24 09:54 | W.NUTCONSULT ---
Date of service: 09/24/19 Time of Service: 09:54 Nutritional Consult ASSESSMENT: 74 year old male admitted with PSVT, ambulatory dysfunction, PNA. Following regular meal plan with adequate intake. BMI wnl for age. not at risk for nutritional decline at this time. will follow prn. MONITORING AND EVALUATION: po intake, labs, weights Time Spent in Nutritional Counseling and Treatment: 0 time spent face to face
[2019-09-24] MEDS: MORPHine 2 MG/ML SYR IVP (10:22)
[2019-09-24] MEDS: Gadoterate meglumine 20 ML VIAL 15 ML IVP (11:14)
--- NOTE | 2019-09-24 11:45 | DI.MRI_ITS ---
EXAM: MR BRAIN WO CLINICAL HISTORY: neurological deficits/hallucination, bacteremia. TECHNIQUE: Multiplanar multisequence MRI was performed. COMPARISON: MR BRAIN WO from 05/18/2019 FINDINGS: MR examination of brain was performed according to the usual protocol. There is moderate generalized cerebral atrophy. No significant signal abnormality is identified in t he brain. There is normal flow void in the [id number] vasculature. The orbital and temporal bone structu res appear intact. Unremarkable appearance of the pituitary. Susceptibility weighted imaging is within normal limits. Diffusion-weighted imaging shows no evidence of infarction. IMPRESSION: Cerebral atrophy, no evidence of acute intracranial process. DATA REPOSITORY:
[2019-09-24] MEDS: Pantoprazole 40 MG VIAL IVP (11:46)
[2019-09-24] MEDS: Furosemide 20 MG/2 ML VIAL IVP (11:46)
--- NOTE | 2019-09-24 11:46 | DI.MRI_ITS ---
EXAM: MR LUMBAR SPINE WO/W CLINICAL HISTORY: SEPSIS/BACK PAIN, ?EPIDURAL ABSCESS. TECHNIQUE: Multiplanar multisequence MRI of the Lumbar Spine was performed. CONTRAST MATERIAL: IV Contrast: 15 mL of Dotarem contrast administered. COMPARISON: CT THORACIC LUMBAR SPINE REC from 09/21/2019 FINDINGS: The study is severely limited due to patient motion artifact. The conus medullaris has a normal appearance and location. Note is made of perineural root sleeve cysts at S2 bilaterally. At L5-S1, there is disc desiccation. There is a diffuse disc bulge. There are degenerative changes of the facets. The findings result in mild narrowing of the central spinal canal and mild bilateral neural foraminal narrowing. At L4-L5, there is disc desiccation and a mild diffuse disc bulge. There are degenerative changes of the facets. There is mild narrowing of the central spinal canal. There is also mild narrowing of t he neural foramen bilaterally. At L3-L4, there are hypertrophic changes of the facets and ligamentum flavum. There is disc desiccat ion. The findings result in mild narrowing of the central spinal canal and mild bilateral neural for aminal narrowing right greater than left. L2-L3, there is a diffuse disc bulge. There are hypertrophic changes of the facets and ligamentum fl avum resulting in mild narrowing of the central spinal canal. Mild bilateral neural foraminal narrow ing is present. At L1-L2, there is no focal disc herniation, central spinal canal or neural foraminal stenosis. No focal fluid collection is seen to suggest an epidural abscess. The post contrast images show significant patient motion artifact. There is some enhancement noted a t the L2-L3 disc level and at the L3-L4 disc level. IMPRESSION: 1. Suboptimal examination due to significant patient motion artifact. 2. No focal fluid collection is identified to suggest an epidural abscess. 3. Multilevel degenerative changes in the lumbar spine resulting in central spinal canal and neural f oraminal stenosis as described above. 4. Areas of enhancement seen at L2-3 and L3-L4 disc levels on the postcontrast images. The detail of these images, however, is significantly compromised due to patient motion artifact. Differential co nsiderations include degenerative change or possibly infection. DATA REPOSITORY:
[2019-09-24] MEDS: Tamsulosin 0.4 MG CAPCR PO ×2 (11:47→20:19)
[2019-09-24] MEDS: Finasteride 5 MG TAB PO (11:47)
[2019-09-24] MEDS: MAGNESIUM SULFATE 2 GM/50 ML BAG IVPB (11:47)
[2019-09-24] MEDS: Lidocaine 5% Patch 1 PATCH TP (11:57)
--- NOTE | 2019-09-24 12:41 | PDOC.CMPRO ---
- If Service Date Differs Date of service: 09/24/19 Time of Service: 12:41 Care Management Progress Note S/O: CM met with Dawit at the bedside he is alert, his speech is garbled he has just return from MRI and was pre medicated for the exam. Dawit continues to have positive blood cultures, he is receiving IV abx, there is a possibility that he could be transferred to [facility] pending the results from the MRI. Dawit would like to send everyone his appreciation he states that he is receive amazing care and that everyone is working so hard to care for him. Dawit is willing to participate in life line he does not want the meals on wheels. CM did provide updates to his niece over the phone. CM will continue to assess for discharge needs. A: Dawit is a 74 year old male admitted with Pneumonia, fever, rhabdomyolysis and elevated troponin P: Dawit will be discharged home when he is medically ready for discharge vs transfer to tertiary center, anticipate he will need additional supports at time of discharge to be determined based on his recovery. He will transport home with family at time of discharge.
[2019-09-24 13:28] LABS: Vancomycin, Trough 17.7 ug/mL (10.0-20.0)
[2019-09-24] MEDS: Acetaminophen 500 MG TAB 1000 MG PO ×2 (16:31→23:52)
--- NOTE | 2019-09-24 17:42 | W.PM.PROGNOT ---
Date of Service Date of service: 09/24/19 Time of Service: 17:42 Assessment and Plan Assessment and plan (1) Sepsis: Status: Acute Assessment and plan: Due to MSSA bacteremia and PNA, present on admission. Defervescing. Keep the patient on vanco, but d/c levofloxacin. Will discuss with ID how to best treat given penicillin allergy. Repeat blood cultures as repeat are positive. Will discuss MRI LS spine with orthopedics - anticipate the patient is going to require a WBC scan. Concern for discitis. Continue to trend procalcitonin/CRP. (2) Gram-positive cocci bacteremia: Status: Acute Assessment and plan: As above. (3) Bilateral pneumonia: Status: Acute Assessment and plan: As above (4) Rhabdomyolysis: Status: Acute Assessment and plan: Likely result of prolonged time spent on the floor post fall. Improving. D/c lasix as looks dry to me today. Continue IVF. Trend I/O, daily weight. (5) Elevated troponin: Status: Acute Assessment and plan: In setting of sepsis but also in acute rhabdomyolysis. The patient does not have signs/sx of cardiac issues at this time, but is unreliable historian. His echo does not show any evidence of wall motion abnormalities. At this time, concern for his troponinemia being of cardiac origin is low. No indication for asa//plavix/heparin. Will need routine stress test as outpatient once current illness resolved. COVID negative. (6) Left inguinal hernia: Status: Chronic Assessment and plan: Evaluated by general surgery. Patient has a benign exam - no pain, and on imaging no bowel within the hernia. Follow up as outpatient. No surgical intervention planned as inpatient. (7) Back pain: Status: Acute Assessment and plan: Does have evidence of severe spinal stenosis in lumbar spine by CT and possible infectious involvement on the MRI, but study is of poor quality. Will discuss with ortho/spine. Anticipate need for WBC scan. (8) Neck pain: Status: Acute Assessment and plan: CT and MRI both negative. Patient has better mobility in his neck today. ?radiculopathy or muscle spasm. Rx ice, lidocaine patch. (9) Transaminitis: Status: Acute Assessment and plan: Expected in setting of rhabdomyolysis. No further workup indicated. (10) Ambulatory dysfunction: Status: Acute Assessment and plan: Will obtain ortho clearance prior to PT consult. (11) DVT prophylaxis: Status: Acute Assessment and plan: TEDs/SCDs. Heparin DC'ed due to thrombocytopenia (12) Discharge planning issues: Status: Acute Assessment and plan: DNR/DNI Subjective Subjective Interval history since last seen: Mr Hanson states he is feeling better. He denies headache, dizziness, states the neck is feeling better, and he is able to move it a lot better. Denies n/v. Had difficulty tolerating MRI's today, but the lumbar study does show possible L2-3 and L3-4 septic discitis, though it is hard to tell. Exam Narrative Exam Narrative: General: pleasant middle-aged/elderly male looks younger than his stated age, A&Ox3, more interactive and looks better HEENT: EOMI, MMM; unable to turn his head to the left without pain Heart: RRR, no m/r/g Lungs: CTAB Abdomen: soft, nontender, nondistended Extremities: no e/c/c BLE's; in bed, 5/5 BLE strength Objective Objective Clinical Data: Abnormal lab results 09/24/19 09/24/19 09/24/19 Range/Units 05:30 05:30 05:30 RBC 4.23 L (4.50-6.00) m/cumm Hgb 13.3 L (13.5-17.5) g/dL Hct 37.8 L (40.0-50.0) % Plt Count 95 L (130-400) x1000/uL Absolute Lymphocytes 0.28 L (1.2-3.4) k/cumm Glucose 114 H (74-106) mg/dL Calcium 8.2 L (8.5-10.1) mg/dL Magnesium 1.6 L (1.8-2.4) mg/dL Creatine Kinase 4407 H (39-308) U/L Troponin I 0.08 H* (<0.06) ng/Ml C-Reactive Protein 13.76 H (0.0-0.3) mg/dL Vital Signs Temperature 37.6 C H 09/24/19 16:25 Temperature Source Temporal Artery Scan 09/24/19 16:25 Pulse 85 09/24/19 16:25 Pulse Rhythm Regular 09/24/19 03:42 Respiratory Rate 19 09/24/19 16:25 Respiratory Effort Non-Labored 04/30/20 04:45 Respiratory Depth Normal 09/24/19 03:42 Respiratory Pattern Normal 09/24/19 03:42 Blood Pressure 147/66 H 09/24/19 16:25 Blood Pressure Position Sitting 09/21/19 20:33 Pulse Oximetry 95 09/24/19 16:25 Oxygen Delivery Method Room Air 09/24/19 16:25 Oxygen Flow Rate 0 09/24/19 16:25 Pain Level 7 09/24/19 16:25 Comment 09/23/19 03:30 Intake & Output 09/23/19 09/24/19 09/24/19 23:59 11:59 23:59 Intake Total 1590 / 2240 1200 / 1320 120 / 1320 Output Total 725 / 725 1250 / 1950 700 / 1950 Balance 865 / 1515 -50 / -630 -580 / -630 Weight 76.1 kg Intake: IV 1350 / 1750 1200 / 1200 Oral 240 / 490 120 / 120 Output: Urine 725 / 725 1250 / 1950 700 / 1950 Other: Urine Color Yellow Dark Analilia Dark Analilia Urine Appearance Clear Clear Clear Stool Size Moderate Stool Characteristics Formed Laboratory Results WBC 5.50 k/cumm (4.4-10.8) 09/24/19 05:30 RBC 4.23 m/cumm (4.50-6.00) L 09/24/19 05:30 Hgb 13.3 g/dL (13.5-17.5) L 09/24/19 05:30 Hct 37.8 % (40.0-50.0) L 09/24/19 05:30 MCV 89.4 fL (80-95) 09/24/19 05:30 MCH 31.4 pg (27.0-33.0) 09/24/19 05:30 MCHC 35.2 g/dL (32.0-36.0) 09/24/19 05:30 RDW 12.1 % (11.8-14.1) 09/24/19 05:30 Plt Count 95 x1000/uL (130-400) L 09/24/19 05:30 MPV 10.0 fL (8.0-11.0) 09/24/19 05:30 Immature Gran % 0.0 % 09/24/19 05:30 Neutrophils % 92.0 09/24/19 05:30 Band Neutrophils % 10.0 % 09/23/19 06:45 Lymphocytes % 5.0 09/24/19 05:30 Atypical Lymphs % 1 09/23/19 06:45 Monocytes % 3.0 09/24/19 05:30 Eosinophils % 0.0 09/24/19 05:30 Basophils % 0.0 09/24/19 05:30 Absolute Neutrophils 5.06 k/cumm (1.2-6.7) 09/24/19 05:30 Absolute Lymphocytes 0.28 k/cumm (1.2-3.4) L 09/24/19 05:30 Absolute Monocytes 0.17 k/cumm (0.11-0.7) 09/24/19 05:30 Absolute Eosinophils 0.00 k/cumm (0.0-0.7) 09/24/19 05:30 Absolute Basophils 0.00 k/cumm (0.0-0.2) 09/24/19 05:30 Differential Comment Manual differential 09/24/19 05:30 RBC Morphology See below 09/24/19 05:30 Polychromasia Present 09/24/19 05:30 PT 13.1 sec (9.3-11.0) H 09/22/19 06:45 INR 1.3 (0.9-1.1) H 09/22/19 06:45 D-Dimer 4475 ng/mlFEU (<500) H 09/22/19 06:45 VBG pH 7.43 (7.35-7.45) 09/21/19 20:40 VBG pCO2 42 mm/Hg (34-47) 09/21/19 20:40 VBG pO2 26 mm/Hg (28-44) L 09/21/19 20:40 VBG HCO3 28 mmol/L (22-28) 09/21/19 20:40 VBG Total CO2 26 mmol/L (22-29) 09/21/19 20:40 VBG O2 Saturation 49 % (70-80) L 09/21/19 20:40 VBG Base Excess 3.9 mmol/L (-3-3) H 09/21/19 20:40 Sodium 138 mmol/L (136-145) 09/24/19 05:30 Potassium 3.5 mmol/L (3.5-5.1) 09/24/19 05:30 Chloride 104 mmol/L (98-107) 09/24/19 05:30 Carbon Dioxide 26.4 mmol/L (21.0-32.0) 09/24/19 05:30 Anion Gap 7.6 mmol/L (3-11) 09/24/19 05:30 BUN 15 mg/dL (7-18) 09/24/19 05:30 Creatinine 1.17 mg/dL (0.70-1.30) 09/24/19 05:30 Estimated GFR/1.73 m2 >= 60.00 (mL/min/1.73m2) 09/24/19 05:30 Glucose 114 mg/dL (74-106) H 09/24/19 05:30 Lactate 1.1 mmol/L (0.6-1.4) 09/22/19 08:07 Calcium 8.2 mg/dL (8.5-10.1) L 09/24/19 05:30 Magnesium 1.6 mg/dL (1.8-2.4) L 09/24/19 05:30 Ferritin 737 ng/mL (26-388) H 09/23/19 06:45 Total Bilirubin 3.3 mg/dL (0.2-1.0) H 09/23/19 06:45 Conjugated Bilirubin 1.53 mg/dL (0.00-0.20) H 09/23/19 06:45 AST 299 U/L (15-37) H 09/23/19 06:45 ALT 173 U/L (16-63) H 09/23/19 06:45 Alkaline Phosphatase 64 U/L (46-116) 09/23/19 06:45 Lactate Dehydrogenase 431 U/L (85-227) H 09/21/19 20:40 Creatine Kinase 4407 U/L (39-308) H 09/24/19 05:30 Troponin I 0.08 ng/Ml (<0.06) H* 09/24/19 05:30 C-Reactive Protein 13.76 mg/dL (0.0-0.3) H 09/24/19 05:30 Total Protein 5.9 g/dL (6.4-8.2) L 09/23/19 06:45 Albumin 2.6 g/dL (3.4-5.0) L 09/23/19 06:45 Lipase 42 U/L (73-393) 09/21/19 20:40 Procalcitonin 2.0 ng/mL 09/24/19 05:30 TSH 0.67 uIU/mL (0.36-3.74) 09/22/19 06:45 Urine Color Analilia (Yellow) 09/21/19 21:45 Urine Clarity Clear (Clear) 09/21/19 21:45 Urine pH 7.5 (5-8) 09/21/19 21:45 Ur Specific [place] 1.020 (1.005-1.025) 09/21/19 21:45 Urine Protein >=300 mg/dL (Negative) H 09/21/19 21:45 Urine Ketones 40 mg/dL (Negative) H 09/21/19 21:45 Urine Blood Large (Negative) H 09/21/19 21:45 Urine Nitrite Negative (Negative) 09/21/19 21:45 Urine Bilirubin Negative (Negative) 09/21/19 21:45 Urine Urobilinogen 0.2 EU/dL (Up TO 0.2) 09/21/19 21:45 Ur Leukocyte Esterase Negative (Negative) 09/21/19 21:45 Urine RBC 3-5 HPF (0-2) H 09/21/19 21:45 Urine WBC Negative HPF (0-5) 09/21/19 21:45 Ur Epithelial Cells Negative HPF (Negative) 09/21/19 21:45 Urine Crystals Negative HPF (Negative) 09/21/19 21:45 Urine Bacteria Rare HPF (Negative) 09/21/19 21:45 Urine Casts 3-5 hyaline LPF (Negative) 09/21/19 21:45 Urine Mucus Trace (Negative) 09/21/19 21:45 Ur Culture Indicated? C&s done as ordered 09/21/19 21:45 Urine Glucose Negative mg/dL (Negative) 09/21/19 21:45 Vancomycin Trough 17.7 ug/mL (10.0-20.0) 09/24/19 13:02 COVID-19 PCR Negative (Negative) 09/21/19 20:50 Nasopharyn COVID-19 PCR Not Applicable 09/21/19 20:50 Hepatitis A IgM Ab Negative (Negative) 09/21/19 23:55 Hep Bs Antigen Negative (Negative) 09/21/19 23:55 Hep B Core Total Ab Negative (Negative) 09/21/19 23:55 Hepatitis C Antibody Negative (Negative) 09/21/19 23:55 Ref Test Perform Site [facility] hospital lab 09/21/19 20:50 Imaging studies reviewed. MRI brain, c-spine, thoracic spine wnl. MRI LS spine: 1. Suboptimal examination due to significant patient motion artifact. 2. No focal fluid collection is identified to suggest an epidural abscess. 3. Multilevel degenerative changes in the lumbar spine resulting in central spinal canal and neural foraminal stenosis as described above. 4. Areas of enhancement seen at L2-3 and L3-L4 disc levels on the postcontrast images. The detail of these images, however, is significantly compromised due to patient motion artifact. Differential considerations include degenerative change or possibly infection.
[2019-09-25] MEDS: Normal Saline 1,000 ML 150 ML IV ×3 (01:21→17:11)
[2019-09-25 04:30] VITALS: BP 166/75; PULSE 69; RESP 16; TEMP 36.1; O2SAT 93
[2019-09-25] MEDS: Levothyroxine 25 MCG TAB PO (06:28)
[2019-09-25 06:41] LABS: Abs Immature Grans 0.05 k/cumm (0.0-0.09); Absolute Basophil Count 0.02 k/cumm (0.0-0.2); Absolute Eosinophil Count 0.07 k/cumm (0.0-0.7); Absolute Lymphocyte Count 0.62 k/cumm (1.2-3.4); Absolute Monocyte Count 0.89 k/cumm (0.11-0.7); Absolute Neutrophil Count 5.53 k/cumm (1.2-6.7); Basophils % 0.3; HCT 34.4 % (40.0-50.0); HGB 11.9 g/dL (13.5-17.5); Immature Grans % 0.7 %; Lymphocytes % 8.6; Mean Corp. HGB Concentration 34.6 g/dL (32.0-36.0); Mean Corpuscular Hemoglobin 30.8 pg (27.0-33.0); Mean Corpuscular Volume 89.1 fL (80-95); Mean Platelet Volume 9.3 fL (8.0-11.0); Monocytes % 12.4; Platelet Count 108 x1000/uL (130-400); RBC 3.86 m/cumm (4.50-6.00); RBC Distribution Width 12.3 % (11.8-14.1); White Blood Cell Count 7.18 k/cumm (4.4-10.8)
[2019-09-25 07:03] LABS: Anion Gap 4.6 mmol/L (3-11); BUN 18 mg/dL (7-18); C-Reactive Protein 11.86 mg/dL (0.0-0.3); CO2 29.4 mmol/L (21.0-32.0); CREATININE 1.04 mg/dL (0.70-1.30); Calcium 8.3 mg/dL (8.5-10.1); Chloride 106 mmol/L (98-107); Glucose 121 mg/dL (74-106); Magnesium 1.9 mg/dL (1.8-2.4); Potassium 3.2 mmol/L (3.5-5.1); Sodium 140 mmol/L (136-145)
[2019-09-25 07:04] LABS: Creatine Kinase 2196 U/L (39-308)
[2019-09-25 07:31] VITALS: BP 178/76; PULSE 75; RESP 18; TEMP 37.3; O2SAT 95
[2019-09-25] MEDS: Pantoprazole 40 MG VIAL IVP (08:44)
[2019-09-25] MEDS: Normal Saline Flush 10 ML SYR IVP (08:44)
[2019-09-25] MEDS: Acetaminophen 500 MG TAB 1000 MG PO ×3 (08:45→23:10)
[2019-09-25] MEDS: Potassium Chloride 20 MEQ TABCR 40 MEQ PO (08:45)
[2019-09-25] MEDS: Tamsulosin 0.4 MG CAPCR PO ×2 (08:46→20:35)
[2019-09-25] MEDS: Finasteride 5 MG TAB PO (08:46)
[2019-09-25] MEDS: amLODIPine 2.5 MG TAB PO (08:46)
[2019-09-25] MEDS: Lidocaine 5% Patch 1 PATCH TP (08:47)
[2019-09-25 11:53] VITALS: BP 170/76; PULSE 74; RESP 18; TEMP 37.3; O2SAT 95
--- NOTE | 2019-09-25 13:06 | PDOC.CMPRO ---
- If Service Date Differs Date of service: 09/25/19 Time of Service: 13:06 Care Management Progress Note S/O: CM met with Dawit at length at the bedside. He is alert and engaged at the time of assessment. He is willing to consider a rehab if needed due to prolonged hospitalization, infection and rhabdo r/t fall at home. He is receiving IV abx, length of treatment to be determined. Dawit states his neck is feeling a little better, and he feels the lidocaine patches are helping. He is tearful throughout the conversation as he talks about his Lin who passed about three years ago. He states he has been seeing a therapist for the past year at [facility] regularly and this is helping him through the grief. CM provided active listening and agreed to update his niece Patricia with his progress. A:Dawit is a 74 year old male admitted after a fall at home, he was found to have MSSA bacteremia and PNA, present on admission P: Dawit remains inpatient at this time, there continues to be a possibility of transfer pending results of imaging he remains on IV abx length of treatment to be determined. He is willing to consider a SNF placement vs [facility] pending need. CM will continue to assess and coordinate discharge needs.
--- NOTE | 2019-09-25 15:12 | CHAPLAIN ---
Dawit was resting in bed when I visited. He told me that he doesn't go to [employer], but that on he spends an hour talking with God and with his , who three years ago. He shared some personal history about his , how they met, his work life and his move here from [place] after his 's . He has a niece and three nephews who live in this area who look out for him and check in on him. Dawit said he still misses his a great deal, and explained that she was a great , and he is lonely without her. Dawit asked for some daily devotional readings, so I gave him six months worth [employer]. He doesn't have reading glasses with him and I suggested he ask Care Management to borrow some.
[2019-09-25 15:35] VITALS: BP 170/74; PULSE 88; RESP 19; TEMP 37.4; O2SAT 96
--- NOTE | 2019-09-25 16:43 | PGE_ITS ---
Date of Service Date of service: 09/25/19 Time of Service: 16:43 Assessment and Plan Assessment and plan (1) Sepsis: Status: Acute Assessment and plan: Due to MSSA bacteremia and PNA, present on admission. Defervesced, finally. Discussed with ID and spine: while lumbar spine MRI was very motion distorted, it's not clear whether or not the patient has vertebral osteomyelitis or septic discitis, though probably not. Per ID recommendations, will treat patient for 6 weeks from the first negative blood culture as if he has endocarditis/vertebral osteomyelitis. Switch abx to cefazolin 2 grams IV Q 8hrs. New blood cultures repeated today. Will need repeat MRI of lumbar spine in 4 weeks. Continue to trend procalcitonin/CRP. (2) Gram-positive cocci bacteremia: Status: Acute Assessment and plan: As above. (3) Bilateral pneumonia: Status: Acute Assessment and plan: As above (4) Rhabdomyolysis: Status: Acute Assessment and plan: Likely result of prolonged time spent on the floor post fall. Improving. Cr remains normal. Continue IVF. Trend I/O, daily weight. (5) Elevated troponin: Status: Acute Assessment and plan: In setting of sepsis but also in acute rhabdomyolysis. The patient does not have signs/sx of cardiac issues at this time, but is unreliable historian. His echo does not show any evidence of wall motion abnormalities. At this time, concern for his troponinemia being of cardiac origin is low. No indication for asa//plavix/heparin. Will need routine stress test as outpatient once current illness resolved. COVID negative. (6) Left inguinal hernia: Status: Chronic Assessment and plan: Evaluated by general surgery. Patient has a benign exam - no pain, and on imaging no bowel within the hernia. Follow up as outpatient. No surgical intervention planned as inpatient. (7) Back pain: Status: Acute Assessment and plan: Does have evidence of severe spinal stenosis in lumbar spine with question of vertebral osteomyelitis/discitis. Will treat as if he has it. No surgical intervention advised. No need for a WBC scan. Will need repeat MRI in 4 weeks. (8) Neck pain: Status: Acute Assessment and plan: CT and MRI both negative. Likely due to a muscle spasm. Improving. (9) Transaminitis: Status: Acute Assessment and plan: Expected in setting of rhabdomyolysis. No further workup indicated. (10) Ambulatory dysfunction: Status: Acute Assessment and plan: Consult PT (11) DVT prophylaxis: Status: Acute Assessment and plan: TEDs/SCDs. Heparin DC'ed due to thrombocytopenia (12) Discharge planning issues: Status: Acute Assessment and plan: DNR/DNI Will need 6 weeks of cefazolin since 1st negative blood culture (has not happened yet). Once blood cultures are clear, would need a PICC line/midline. Subjective Subjective Interval history since last seen: States he is doing better. Denies dizziness, chest pain, shortness of breath. Has a slight nonproductive cough. Denies n/v. States his back and neck are feeling better. He has had a lot more ROM in his neck when turning to the left. Case was reviewed by Dr Ann of spine surgery [place] [facility] [place] did not feel that findings on MRI were c/w septic descitis/osteomyelitis. Case was then also discussed with Dr Argueta of ID at [facility] [place] - recommends switching from vancomycin to cefazolin 2 grams IV Q8hrs x 6 weeks from 1st negative blood culture (repeat is still pending). He feels that it may be worth it to repeat MRI of his Lumbar spine in 4 weeks to see if the disease has matured. Exam Narrative Exam Narrative: General: pleasant middle-aged/elderly male looks younger than his stated age, A&Ox3, looks better than yesterday HEENT: EOMI, MMM; improved ROM of neck when turning to the left (R turn, flexion/extension of neck have been intact) Heart: RRR, no m/r/g Lungs: CTAB Abdomen: soft, nontender, nondistended Extremities: no e/c/c BLE's; in bed, 5/5 BLE strength Objective Objective Clinical Data: Abnormal lab results 09/25/19 09/25/19 Range/Units 06:11 06:15 RBC 3.86 L (4.50-6.00) m/cumm Hgb 11.9 L (13.5-17.5) g/dL Hct 34.4 L (40.0-50.0) % Plt Count 108 L (130-400) x1000/uL Absolute Lymphocytes 0.62 L (1.2-3.4) k/cumm Absolute Monocytes 0.89 H (0.11-0.7) k/cumm Potassium 3.2 L (3.5-5.1) mmol/L Glucose 121 H (74-106) mg/dL Calcium 8.3 L (8.5-10.1) mg/dL Creatine Kinase 2196 H (39-308) U/L C-Reactive Protein 11.86 H (0.0-0.3) mg/dL Vital Signs Temperature 37.4 C 09/25/19 15:35 Temperature Source Tympanic 09/25/19 15:35 Pulse 88 09/25/19 15:35 Pulse Rhythm Regular 09/25/19 08:05 Respiratory Rate 19 09/25/19 15:35 Respiratory Effort 09/25/19 08:05 Respiratory Depth Normal 09/25/19 08:05 Respiratory Pattern Normal 09/25/19 08:05 Blood Pressure 170/74 H 09/25/19 15:35 Blood Pressure Position Sitting 09/21/19 20:33 Pulse Oximetry 96 09/25/19 15:35 Oxygen Delivery Method Room Air 09/25/19 15:35 Oxygen Flow Rate 0 09/25/19 15:35 Pain Level 2 09/25/19 15:40 Comment 09/23/19 03:30 Intake & Output 09/24/19 09/25/19 09/25/19 23:59 11:59 23:59 Intake Total 1320 / 2520 2680 / 2920 240 / 2920 Output Total 1500 / 2750 1600 / 3480 1880 / 3480 Balance -180 / -230 1080 / -560 -1640 / -560 Weight 75.8 kg Intake: IV 1200 / 2400 2200 / 2200 Oral 120 / 120 480 / 720 240 / 720 Output: Urine 1500 / 2750 1600 / 3480 1880 / 3480 Other: Urine Color Martinez Dark Analilia Light Analilia Urine Appearance Clear Clear Clear Stool Size Small Stool Characteristics Soft Brown Laboratory Results WBC 7.18 k/cumm (4.4-10.8) D 09/25/19 06:11 RBC 3.86 m/cumm (4.50-6.00) L 09/25/19 06:11 Hgb 11.9 g/dL (13.5-17.5) L 09/25/19 06:11 Hct 34.4 % (40.0-50.0) L 09/25/19 06:11 MCV 89.1 fL (80-95) 09/25/19 06:11 MCH 30.8 pg (27.0-33.0) 09/25/19 06:11 MCHC 34.6 g/dL (32.0-36.0) 09/25/19 06:11 RDW 12.3 % (11.8-14.1) 09/25/19 06:11 Plt Count 108 x1000/uL (130-400) L 09/25/19 06:11 MPV 9.3 fL (8.0-11.0) 09/25/19 06:11 Immature Gran % 0.7 % 09/25/19 06:11 Neutrophils % 77.0 09/25/19 06:11 Band Neutrophils % 10.0 % 09/23/19 06:45 Lymphocytes % 8.6 09/25/19 06:11 Atypical Lymphs % 1 09/23/19 06:45 Monocytes % 12.4 09/25/19 06:11 Eosinophils % 1.0 09/25/19 06:11 Basophils % 0.3 09/25/19 06:11 Absolute Neutrophils 5.53 k/cumm (1.2-6.7) 09/25/19 06:11 Absolute Lymphocytes 0.62 k/cumm (1.2-3.4) L 09/25/19 06:11 Absolute Monocytes 0.89 k/cumm (0.11-0.7) H 09/25/19 06:11 Absolute Eosinophils 0.07 k/cumm (0.0-0.7) 09/25/19 06:11 Absolute Basophils 0.02 k/cumm (0.0-0.2) 09/25/19 06:11 Differential Comment Manual differential 09/24/19 05:30 RBC Morphology See below 09/24/19 05:30 Polychromasia Present 09/24/19 05:30 PT 13.1 sec (9.3-11.0) H 09/22/19 06:45 INR 1.3 (0.9-1.1) H 09/22/19 06:45 D-Dimer 4475 ng/mlFEU (<500) H 09/22/19 06:45 VBG pH 7.43 (7.35-7.45) 09/21/19 20:40 VBG pCO2 42 mm/Hg (34-47) 09/21/19 20:40 VBG pO2 26 mm/Hg (28-44) L 09/21/19 20:40 VBG HCO3 28 mmol/L (22-28) 09/21/19 20:40 VBG Total CO2 26 mmol/L (22-29) 09/21/19 20:40 VBG O2 Saturation 49 % (70-80) L 09/21/19 20:40 VBG Base Excess 3.9 mmol/L (-3-3) H 09/21/19 20:40 Sodium 140 mmol/L (136-145) 09/25/19 06:15 Potassium 3.2 mmol/L (3.5-5.1) L 09/25/19 06:15 Chloride 106 mmol/L (98-107) 09/25/19 06:15 Carbon Dioxide 29.4 mmol/L (21.0-32.0) 09/25/19 06:15 Anion Gap 4.6 mmol/L (3-11) 09/25/19 06:15 BUN 18 mg/dL (7-18) 09/25/19 06:15 Creatinine 1.04 mg/dL (0.70-1.30) 09/25/19 06:15 Estimated GFR/1.73 m2 >= 60.00 (mL/min/1.73m2) 09/25/19 06:15 Glucose 121 mg/dL (74-106) H 09/25/19 06:15 Lactate 1.1 mmol/L (0.6-1.4) 09/22/19 08:07 Calcium 8.3 mg/dL (8.5-10.1) L 09/25/19 06:15 Magnesium 1.9 mg/dL (1.8-2.4) 09/25/19 06:15 Ferritin 737 ng/mL (26-388) H 09/23/19 06:45 Total Bilirubin 3.3 mg/dL (0.2-1.0) H 09/23/19 06:45 Conjugated Bilirubin 1.53 mg/dL (0.00-0.20) H 09/23/19 06:45 AST 299 U/L (15-37) H 09/23/19 06:45 ALT 173 U/L (16-63) H 09/23/19 06:45 Alkaline Phosphatase 64 U/L (46-116) 09/23/19 06:45 Lactate Dehydrogenase 431 U/L (85-227) H 09/21/19 20:40 Creatine Kinase 2196 U/L (39-308) H 09/25/19 06:15 Troponin I 0.08 ng/Ml (<0.06) H* 09/24/19 05:30 C-Reactive Protein 11.86 mg/dL (0.0-0.3) H 09/25/19 06:15 Total Protein 5.9 g/dL (6.4-8.2) L 09/23/19 06:45 Albumin 2.6 g/dL (3.4-5.0) L 09/23/19 06:45 Lipase 42 U/L (73-393) 09/21/19 20:40 Procalcitonin 2.0 ng/mL 09/24/19 05:30 TSH 0.67 uIU/mL (0.36-3.74) 09/22/19 06:45 Urine Color Analilia (Yellow) 09/21/19 21:45 Urine Clarity Clear (Clear) 09/21/19 21:45 Urine pH 7.5 (5-8) 09/21/19 21:45 Ur Specific [place] 1.020 (1.005-1.025) 09/21/19 21:45 Urine Protein >=300 mg/dL (Negative) H 09/21/19 21:45 Urine Ketones 40 mg/dL (Negative) H 09/21/19 21:45 Urine Blood Large (Negative) H 09/21/19 21:45 Urine Nitrite Negative (Negative) 09/21/19 21:45 Urine Bilirubin Negative (Negative) 09/21/19 21:45 Urine Urobilinogen 0.2 EU/dL (Up TO 0.2) 09/21/19 21:45 Ur Leukocyte Esterase Negative (Negative) 09/21/19 21:45 Urine RBC 3-5 HPF (0-2) H 09/21/19 21:45 Urine WBC Negative HPF (0-5) 09/21/19 21:45 Ur Epithelial Cells Negative HPF (Negative) 09/21/19 21:45 Urine Crystals Negative HPF (Negative) 09/21/19 21:45 Urine Bacteria Rare HPF (Negative) 09/21/19 21:45 Urine Casts 3-5 hyaline LPF (Negative) 09/21/19 21:45 Urine Mucus Trace (Negative) 09/21/19 21:45 Ur Culture Indicated? C&s done as ordered 09/21/19 21:45 Urine Glucose Negative mg/dL (Negative) 09/21/19 21:45 Vancomycin Trough 17.7 ug/mL (10.0-20.0) 09/24/19 13:02 COVID-19 PCR Negative (Negative) 09/21/19 20:50 Nasopharyn COVID-19 PCR Not Applicable 09/21/19 20:50 Hepatitis A IgM Ab Negative (Negative) 09/21/19 23:55 Hep Bs Antigen Negative (Negative) 09/21/19 23:55 Hep B Core Total Ab Negative (Negative) 09/21/19 23:55 Hepatitis C Antibody Negative (Negative) 09/21/19 23:55 Ref Test Perform Site [facility] hospital lab 09/21/19 20:50
--- NOTE | 2019-09-25 18:14 | NUR.NOTE ---
Nursing Note: Pt presents with some confused sounding comments. Unsure of his baseline, just received pt. According to other staff he has presemted with confusion and hallucinations in the past, so this does not seem to be a change for him. Pt is able to correctly answer orientation questions. Pt putting out adequate amounts of light miguel angel urine. Does offer c/o's pain to neck region, lidoderm patch exists to area. Pt eating dinner well. Denies N/V/D, denies dizziness.
[2019-09-25] MEDS: ceFAZolin 2 GM/50 ML BAG IVPB (19:12)
[2019-09-25 19:22] VITALS: BP 169/73; PULSE 88; RESP 21; TEMP 37.3; O2SAT 92
[2019-09-26] VITALS (8 sets, daily range): BP systolic 118–177; BP diastolic 60–78; PULSE 72–122; RESP 16–19; TEMP 36.5–37.7; O2SAT 93–95
[2019-09-26] MEDS: ceFAZolin 2 GM/50 ML BAG IVPB ×3 (02:19→18:11)
[2019-09-26] MEDS: Normal Saline Flush 10 ML SYR IVP ×3 (02:21→20:35)
[2019-09-26] MEDS: Levothyroxine 25 MCG TAB PO (05:47)
[2019-09-26 06:55] LABS: Abs Immature Grans 0.16 k/cumm (0.0-0.09); Absolute Basophil Count 0.02 k/cumm (0.0-0.2); Absolute Eosinophil Count 0.08 k/cumm (0.0-0.7); Absolute Lymphocyte Count 0.84 k/cumm (1.2-3.4); Absolute Monocyte Count 1.05 k/cumm (0.11-0.7); Absolute Neutrophil Count 5.62 k/cumm (1.2-6.7); Basophils % 0.3; HCT 36.7 % (40.0-50.0); HGB 13.1 g/dL (13.5-17.5); Immature Grans % 2.1 %; Lymphocytes % 10.8; Mean Corp. HGB Concentration 35.7 g/dL (32.0-36.0); Mean Corpuscular Hemoglobin 31.3 pg (27.0-33.0); Mean Corpuscular Volume 87.6 fL (80-95); Mean Platelet Volume 8.8 fL (8.0-11.0); Monocytes % 13.5; Neutrophils % 72.3; Platelet Count 139 x1000/uL (130-400); RBC 4.19 m/cumm (4.50-6.00); RBC Distribution Width 12.3 % (11.8-14.1); White Blood Cell Count 7.77 k/cumm (4.4-10.8)
[2019-09-26 07:05] LABS: Anion Gap 7.9 mmol/L (3-11); BUN 13 mg/dL (7-18); C-Reactive Protein 10.81 mg/dL (0.0-0.3); CO2 30.1 mmol/L (21.0-32.0); CREATININE 0.94 mg/dL (0.70-1.30); Calcium 8.3 mg/dL (8.5-10.1); Chloride 102 mmol/L (98-107); Glucose 103 mg/dL (74-106); Magnesium 1.7 mg/dL (1.8-2.4); Sodium 140 mmol/L (136-145)
[2019-09-26 07:17] LABS: Potassium 2.9 mmol/L (3.5-5.1)
[2019-09-26 07:39] LABS: Procalcitonin 0.9 ng/mL
--- NOTE | 2019-09-26 08:45 | IN_ITS ---
Date of service: 09/26/19 Time of Service: 08:45 PT Notes Visit Reasons: Pneumonia Physical Therapy Inpatient Initial Evaluation Date: 09/26/2019 Referring Doctor: Florence Lowery MD PT Orders: PT CONSULT: Limited ability Precautions: Fall. Standard. Activity as tolerated. Patient Profile/Admitting Diagnosis: Patient is a 74-year-old male who presented to the ED on 09/21/2019 via EMS with chief complaints of generalized weakness that started 2 days prior to admission that has resulted to a fall on his way to his bathroom in his apartment and a left abdominal discomfort. Patient is diagnosed with pneumonia with MSSA bacteremia, acute rhabdomyolysis, increased opponent, back pain with question of vertebral osteomyelitis or discitis, neck pain, transaminitis, and ambulatory dysfunction. Patient tested negative for COVID-19 on as of 09/14/2019 at 20 3:16 PM. Orders were sent in for physical therapy to address impairments and strength, balance, and activity tolerance. PMHX: Medical History (Updated 09/22/19 @ 10:34 by Shi Alonzo MD) Erectile dysfunction (Inactive) Surgical History (Updated 09/22/19 @ 10:32 by Shi Alonzo MD) S/P left inguinal hernia repair (Acute) Social History/Home Situation: Patient lives alone on the second floor of an apartment building with no steps to enter. He uses an elevator to reach the entrance of his apartment. He is independent with all activities of daily living not requiring any assistive ambulatory device nor adaptive equipment. He still drives. His passed 3 years ago and he has been seeing a counselor to manage his grief. Equipment Owned/DME: Patient states that his used a walker and a cane which can both be available to him if needed. Subjective: Patient reports discomfort on his neck area but denies back pain, abdominal pain, chest pain, headache, and dizziness throughout PT session today. He states that the last time he fell was 2 years ago and has not had another one until this most recent incident that caused him to go to the hospital. Objective: General Observation: Patient lying in bed. Telemetry monitoring in place. IV access in right UE. R-sided torticollis (acquired?). Genu varum. Mental Status: Alert and oriented as to person place and time Pain: 1-2/10 in the neck area especially with end range of neck motions ROM: Neck: Rotation to L about 15 degrees. Rotaion to R about 45 degrres. Lateral flexion to L abut 10 degrees. Lateral flexion to R about 30 degrees. Right Upper Extremity: Shoulder Flexion WFL. Shoulder abduction WFL. Elbow flexion WFL. Wrist flexion WFL. Opening and closing of hand WFL. Left Upper Extremity: Shoulder Flexion WFL. Shoulder abduction WFL. Elbow flexion WFL. Wrist flexion WFL. Opening and closing of hand WFL. Right Lower Extremity: Hip flexion WFL. Hip abduction WFL. Knee flexion WFL. Ankle dorsiflexion WFL. Ankle plantarflexion WFL. Left Lower Extremity: Hip flexion WFL. Hip abduction WFL. Knee flexion WFL. Ankle dorsiflexion WFL. Ankle plantarflexion WFL. Strength: Neck: R rotators 3-/5. L rotators3-/5. Lateral flexors to R 3-/5. Lateral flexors to L 3-/5. Right Upper Extremity: Shoulder flexors 4/5. Shoulder abductors 4/5. Elbow flexors 4/5. Elbow extensors 4-/5. 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 Left Upper Extremity: Shoulder flexors 4/5. Shoulder abductors 4/5. Elbow flexors 4/5. Elbow extensors 4-/5. 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 Right Lower Extremity: Hip flexors 4-/5. Hip abductors 4-/5. Knee flexors 4/5. Knee extensors 4-/5. Ankle dorsiflexors 4-/5. Ankle plantarflexors 4-/5. Left Lower Extremity:Hip flexors 4-/5. Hip abductors 4-/5. Knee flexors 4/5. Knee extensors 4-/5. Ankle dorsiflexors 4-/5. Ankle plantarflexors 4-/5. Sensation: Intact as to pain and pressure on bilateral lower extremities. Bed Mobility/Transfers: Rolling CGA Supine to sit CGA with HOB to 30 degrees and using BUE for support Sit to supine CGA with HOB to 30 degrees and using BUE for support Sit to stand minimal assist using BUE for support, minimal cueing required Stand to sit minimal assist using BUE for support, minimal cueing required Bed to chair minimal assist using BUE for support, minimal cueing required Chair to bed minimal assist using BUE for support, minimal cueing required Gait: Patient was able to tolerate level surface ambulation of 125 feet x 2 with minimal assist and wheelchair follow this PT using front wheeled walker with full weightbearing. There is decrease exact eccentric control for trunk extension causing patient COG shift backward thus increasing risk for falls. Step through gait pattern. Genu varum. Cues are required for management of center of gravity in order to maximize dynamic balance. Balance: Static Sitting: Normal Dynamic Sitting: Good Static Standing: Fair Dynamic Standing: Fair Special Tests: Mobility Limitations Standardized Measure [facility] AM-PAC 6 clicks Basic Mobility Inpatient Short Form: Raw Score: 19 CMS Score: 42% deficit 4-stage Balance Test: Patient is not able to maintain all 4 positions within 10 seconds indicating high risk for falling thus requiring use of an assistive ambulatory device at this time. Informed Consent/Education: Patient instructed in purpose of PT consult and plan of care. Assessment: Functional mobility decline. Need for assistive device for all mobility ADL performance. Unsteadiness of gait. Generalized muscle weakness. Neck pain. Patient is a 74-year-old male who presented to the ED on 09/21/2019 via EMS with chief complaints of generalized weakness that started 2 days prior to admission that has resulted to a fall on his way to his bathroom in his apartment and a left abdominal discomfort. Patient is diagnosed with pneumonia with MSSA bacteremia, acute rhabdomyolysis, increased opponent, back pain with question of vertebral osteomyelitis or discitis, neck pain, transaminitis, and ambulatory dysfunction. Patient tested negative for COVID-19 on as of 09/14/2019 at 20 3:16 PM. Orders were sent in for physical therapy to address impairments and strength, balance, and activity tolerance. Patient presents with clinical signs and symptoms consistent with current/admitting diagnoses that have resulted to mobility limitations, gait instability, generalized weakness, and impairment of motor control as demonstrated by the following impairment level findings: 1. Decreased strength to neck, B UE, B LE major muscle groups 2. Impaired sitting/standing balance 3. Impaired activity tolerance 4. Limitation of joint range of motion in cervical area Impairments are contributing to the following functional limitations: 1. Dependent bed mobility skills 2. Increased dependence with transfers 3. Inability to safely ambulate without assistive device and physical assistance 4. Increase completion time for mobility ADL performance 5. Increased fall risk 6. Inability to negotiate steps alone safely Patient is assessed as a 36546 moderate complexity based on the following: History: 74-year-old male waiting for impairment level findings, functional limitations, and medical history as indicated above Examination: Demonstrable impairment in strength, balance, and range of motion with underlying impairments and functional limitations as documented above Presentation: Stable Decision Makin moderate complexity Goals: Goals X1 week 1. Supine-Sit independent 2. Sit-Supine independent 3. Sit-Stand independent 4. Stand-Sit independent 5. Bed-Chair independent 6. Chair-Bed independent 7. Independent gait on level surface with use of least restrictive device for at least 300 feet without report of pain nor dyspnea 8. Independent stair negotiation while holding onto bilateral rails for at least 10 steps without report of pain nor dyspnea 9. Independent with home exercise program 10. Good static and dynamic standing balance/tolerance Plan of Care/Treatment Plan: 1-2x/day, 7 days/week x 1 week. Initiate Physical Therapy intervention for strengthening, bed mobility, transfers, gait, stairs, balance training, use of assistive device. PT Intervention: Session today consisted of initial physical therapy evaluation as well as education and training with safe mobility ADL performance using front wheeled walker and initiation of strengthening exercises. DISCHARGE RECOMMENDATIONS: Patient will benefit from home health PT services in order to progress mobility level using least restrictive assistive ambulatory device, assess home safety, identify additional equipment needs, and establish a functional maintenance program that will increase ability of patient to remain at home. TREATMENT CODE/TIME: 64406 x 25 minutes, 84246 x 25 minutes, 99175 x 14 minutes beginning at 8:45 AM. Thank you very much for this referral. Ariane Poe PT, DPT, CLT [facility] [place], [place]
--- NOTE | 2019-09-26 08:46 | CMPROGNOTE_ITS ---
- If Service Date Differs Date of service: 09/26/19 Time of Service: 08:46 Care Management Progress Note S/O: Dawit was sitting up in a chair when CM came to see him. he was receptive to conversation and was smiling and engaged. Dawit asked about Life Alert systems and shared that he had had one for his before she . He stated that he had given it back but thought it might be [place] to have a device for himself at this time. CM provided him with a brochure and answered questions about the products. A:Dawit is a 74 year old male admitted after a fall at home. He was found to have MSSA bacteremia and PNA, present on admission P: Dawit remains inpatient at this time. It appears that he will require 6 weeks of IV antibiotics. If his regimen remains the same (Ancef 3 times a day) he will likely need to remain at [facility] in SB1 status. He continues to have positive blood cultures, including one drawn yesterday, so final plan is not clear. Dawit is willing to consider a SNF placement if needed. CM will continue to support and assess patient and discharge planning needs.
[2019-09-26] MEDS: Tamsulosin 0.4 MG CAPCR PO ×2 (09:10→20:35)
[2019-09-26] MEDS: Pantoprazole 40 MG VIAL IVP (09:10)
[2019-09-26] MEDS: Acetaminophen 500 MG TAB 1000 MG PO ×2 (09:11→16:06)
[2019-09-26] MEDS: Finasteride 5 MG TAB PO (09:11)
[2019-09-26] MEDS: Magnesium Gluconate 500 MG TAB PO (09:11)
[2019-09-26] MEDS: Potassium Chloride 20 MEQ TABCR 40 MEQ PO (09:11)
[2019-09-26] MEDS: amLODIPine 5 MG TAB PO (09:11)
[2019-09-26] MEDS: Lidocaine 5% Patch 1 PATCH TP (09:12)
--- NOTE | 2019-09-26 13:13 | PTTR_ITS ---
Date of service: 09/26/19 Time of Service: 01:13 PT Notes Visit Reasons: Pneumonia Inpatient Physical Therapy Treatment Note Date: 09/26/2019 Subjective: Patient reports minimal discomfort on his neck area but denies back pain, abdominal pain, chest pain, headache, and dizziness throughout PT sessions today. He prefers to be seen not too soon after a meal as he does not feel comfortable moving when his stomach is full. Objective: General Observation: Telemetry monitoring in place. IV access in right UE. R- sided torticollis (acquired?). Genu varum. Mental Status: Alert and oriented as to person place and time Pain: 1/10 in the neck area especially with end range of neck motions Bed Mobility/Transfers: Sit to supine contact-guard assist with HOB to 30 degrees and using BUE for support Sit to stand contact-guard assist using BUE for support, minimal cueing required Stand to sit contact-guard assist using BUE for support, minimal cueing required Bed to chair contact-guard assist using BUE for support, minimal cueing required Chair to bed contact-guard assist using BUE for support, minimal cueing required Gait: Patient was able to tolerate level surface ambulation of 150 feet x 2 with contact-guard assist and wheelchair follow this PT, using front wheeled walker with full weight bearing. There is decrease exact eccentric control for trunk extension causing patient's COG to shift backward thus increasing risk for falls. Step through gait pattern. Genu varum. Cues are required for management of center of gravity in order to maximize dynamic balance. Balance: Static Sitting: Normal Dynamic Sitting: Good Static Standing: Fair Dynamic Standing: Fair Assessment: Functional mobility decline. Need for assistive device for all mobility ADL performance. Unsteadiness of gait. Generalized muscle weakness. Neck pain. Patient is a 74-year-old male who presented to the ED on 09/21/2019 via EMS with chief complaints of generalized weakness that started 2 days prior to admission that has resulted to a fall on his way to his bathroom in his apartment and a left abdominal discomfort. Patient is diagnosed with pneumonia with MSSA bacteremia, acute rhabdomyolysis, increased opponent, back pain with question of vertebral osteomyelitis or discitis, neck pain, transaminitis, and ambulatory dysfunction. Patient tested negative for COVID-19 on as of 09/14/2019 at 20 3:16 PM. Orders were sent in for physical therapy to address impairments and strength, balance, and activity tolerance. DISCHARGE RECOMMENDATIONS: Patient will benefit from home health PT services in order to progress mobility level using least restrictive assistive ambulatory device, assess home safety, identify additional equipment needs, and establish a functional maintenance program that will increase ability of patient to remain at home. TREATMENT CODE/TIME: 87078 x 30 minutes, 48181 x 25 minutes beginning at 13:13 PM.
[2019-09-26] MEDS: Potassium Chloride 20 MEQ TABCR PO ×2 (14:16→20:35)
--- NOTE | 2019-09-26 14:25 | PGE_ITS ---
Date of Service Date of service: 09/26/19 Time of Service: 14:25 Assessment and Plan Assessment and plan (1) Sepsis: Status: Acute Assessment and plan: 2nd to MSSA bacteremia +/- pneumonia (CT chest demonstrates small bibasilar infiltrates however, clinically he has not behaved like pneumonia; i.e. no cough or sputum production and he has never required supplemental oxygen and his SPO2 has remained 92% or higher throughout his hospital course. I will repeat his CXR prior to discharge to ensure resolution of basilar infiltrates. 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 We will repeat imaging of his spine in 4 weeks. I will repeat his labs tomorrow to monitor his CRP and if declining then I will repeat his blood cultures at that point. Once his blood cultures are negative, then will count 6 weeks of Ancef 2 gm IV q8hr from his first negative culture. Also once his blood culture is negative then can place a midline. Echocardiogram demonstrated normal LV and RV function. No comment was made on echo report of any vegetations. Unable to perform GOVIND d/t current COVID-19 restrictions. It would not drying rack changer as far as antibiotics are concerned anyway. Will treat for 6 weeks from first negative blood cultures. He will need lifetime suppressive therapy w/ either doxycycline or Bactrim after completion of his 6 weeks of Ancef. Qualifiers: Sepsis type: methicillin susceptible Staphylococcus aureus Sepsis acute organ dysfunction status: without acute organ dysfunction Qualified Code(s): A41.01 - Sepsis due to Methicillin susceptible Staphylococcus aureus (2) Bilateral pneumonia: Status: Acute Assessment and plan: As above. Qualifiers: Pneumonia type: due to unspecified organism Lung location: lower lobe of lung Qualified Code(s): J18.9 - Pneumonia, unspecified organism (3) Rhabdomyolysis: Status: Acute Assessment and plan: markedly improved. CK down yesterday to 2100 from >10,000 on admission on 09/21. I will repeat level w/ a.m. labs to be sure it is still declining. He is now off any iv fluids. He seems to be taking po fluids ok. (4) Elevated troponin: Status: Acute Assessment and plan: elevated troponin on admission of 0.23 that peaked at 0.45 on 09/21 and as of 09/23 was near normal at 0.08. No acute ischemic changes on admission EKG's, therefore likely d/t sepsis and rhabdomyolysis. No symptoms of chest pains. 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 Will treat as if he has it. No surgical intervention advised. Will need repeat MRI in 4 weeks. Qualifiers: Back pain location: low back pain Chronicity: acute Back pain laterality: midline Sciatica presence: without sciatica Qualified Code(s): M54.5 - Low back pain (6) Neck pain: Status: Acute Assessment and plan: CT and MRI both negative. Likely due to a muscle spasm. Improving. (7) Transaminitis: Status: Acute Assessment and plan: probably d/t sepsis and rhabdomyolysis. However repeat levels have not been checked since last elevated on 09/22. Will repeat LFT in a.m. to document resolution. (8) Ambulatory dysfunction: Status: Acute Assessment and plan: worked w/ P.T. this morning and ambulated out to nursing desk. continue P.T. (9) DVT prophylaxis: Status: Acute Assessment and plan: TEDs/SCDs. Heparin DC'ed due to thrombocytopenia which has now since resolved (lowest platelet count was 95,000 but now up to 139,000) (10) Discharge planning issues: Status: Acute Assessment and plan: DNR/DNI Will need 6 weeks of cefazolin since 1st negative blood culture (has not happened yet). Once blood cultures are clear, would need a PICC line/midline. Subjective Subjective Interval history since last seen: Overall the patient does not feel bad. He remains afebrile. He does complain of intermittent twinges of tightness in his left shoulder as well as some pains over his lower back. MRI of his spine from September 23 was suboptimal due to motion artifact. No fluid collections were identified to suggest an epidural abscess. He has multiple levels of degenerative changes of the lumbar spine with central spinal canal stenosis and neuroforaminal stenosis. There were areas of enhancement seen at L2-L3 and L3- L4 disc levels there was significantly compromise due to motion artifact and the radiologist read the differentials including degenerative change and/or infection. Dr. Lowery spoke with a spine surgeon from [facility] who reviewed the films and felt there was not evidence for vertebral osteomyelitis. She also spoke with infectious disease service from [facility] who recommends 6 weeks of antibiotics from his first negative blood culture. They recommend switching antibiotics to cefazolin 2 g IV every 8 hours. Repeat blood cultures from yesterday demonstrated 1 out of 2 sets being positive for gram-positive cocci in clusters. He has had now 6 out of 8 cultures positive since September 21, 2019. The last set of cultures from September 25, 2019 demonstrated 1 out of 2 sets positive. He remains on Ancef 2 g IV every 8 hours since yesterday. Prior to this he had been on vancomycin. He remains afebrile and no leukocytosis. Procalcitonin remains elevated although is declining to 0.9 from peak of 3.9 and his CRP remains elevated at 10.8 Exam Narrative Exam Narrative: Elderly male who is very hard of hearing is alert and oriented person place time circumstance. Lungs are clear to auscultation anteriorly and posteriorly except at the bases where there is some fine rales. No rhonchi or wheezing. Heart is regular rate and rhythm without audible murmur rub or gallop. Abdomen soft and nontender nondistended normal active bowel sounds no palpable masses no guarding. Lower extremities without peripheral cyanosis or edema. There is no open sores on his feet or his legs. Upper extremities show some bruising on his arms. Spine is tender over the lower thoracic and upper lumbar area either at T12 or L1 area. There is no paralumbar or parathoracic muscle tenderness. Examination of the left shoulder reveals no erythema no induration. Objective Objective Clinical Data: Abnormal lab results 09/26/19 09/26/19 Range/Units 06:10 06:10 RBC 4.19 L (4.50-6.00) m/cumm Hgb 13.1 L (13.5-17.5) g/dL Hct 36.7 L (40.0-50.0) % Absolute Lymphocytes 0.84 L (1.2-3.4) k/cumm Absolute Monocytes 1.05 H (0.11-0.7) k/cumm Potassium 2.9 L* (3.5-5.1) mmol/L Calcium 8.3 L (8.5-10.1) mg/dL Magnesium 1.7 L (1.8-2.4) mg/dL C-Reactive Protein 10.81 H (0.0-0.3) mg/dL Vital Signs Temperature 37.2 C 09/26/19 11:44 Temperature Source Temporal Artery Scan 09/26/19 11:44 Pulse 87 09/26/19 11:44 Pulse Rhythm Regular 09/26/19 10:25 Respiratory Rate 18 09/26/19 11:44 Respiratory Effort Non-Labored 09/26/19 10:25 Respiratory Depth Normal 09/26/19 10:25 Respiratory Pattern Normal 09/26/19 10:25 Blood Pressure 118/66 09/26/19 11:44 Blood Pressure Position Sitting 09/21/19 20:33 Pulse Oximetry 95 09/26/19 11:44 Oxygen Delivery Method Room Air 09/26/19 11:44 Oxygen Flow Rate 0 09/26/19 11:44 Pain Level 0 09/26/19 11:44 Comment 09/23/19 03:30 Intake & Output 09/25/19 09/26/19 09/26/19 23:59 11:59 23:59 Intake Total 1490 / 4170 70 / 310 240 / 310 Output Total 3180 / 4780 2400 / 2400 Balance -1690 / -610 -2330 / -2090 240 / -2090 Weight 77.4 kg Intake: IV 1050 / 3250 70 / 70 Oral 440 / 920 240 / 240 Output: Urine 3180 / 4780 2400 / 2400 Other: Urine Color Dark Analilia Dark Analilia Urine Appearance Clear Clots Stool Size Small Small Stool Characteristics Soft Soft Formed Formed Brown Brown Laboratory Results WBC 7.77 k/cumm (4.4-10.8) 09/26/19 06:10 RBC 4.19 m/cumm (4.50-6.00) L 09/26/19 06:10 Hgb 13.1 g/dL (13.5-17.5) L 09/26/19 06:10 Hct 36.7 % (40.0-50.0) L 09/26/19 06:10 MCV 87.6 fL (80-95) 09/26/19 06:10 MCH 31.3 pg (27.0-33.0) 09/26/19 06:10 MCHC 35.7 g/dL (32.0-36.0) 09/26/19 06:10 RDW 12.3 % (11.8-14.1) 09/26/19 06:10 Plt Count 139 x1000/uL (130-400) 09/26/19 06:10 MPV 8.8 fL (8.0-11.0) 09/26/19 06:10 Immature Gran % 2.1 % 09/26/19 06:10 Neutrophils % 72.3 09/26/19 06:10 Band Neutrophils % 10.0 % 09/23/19 06:45 Lymphocytes % 10.8 09/26/19 06:10 Atypical Lymphs % 1 09/23/19 06:45 Monocytes % 13.5 09/26/19 06:10 Eosinophils % 1.0 09/26/19 06:10 Basophils % 0.3 09/26/19 06:10 Absolute Neutrophils 5.62 k/cumm (1.2-6.7) 09/26/19 06:10 Absolute Lymphocytes 0.84 k/cumm (1.2-3.4) L 09/26/19 06:10 Absolute Monocytes 1.05 k/cumm (0.11-0.7) H 09/26/19 06:10 Absolute Eosinophils 0.08 k/cumm (0.0-0.7) 09/26/19 06:10 Absolute Basophils 0.02 k/cumm (0.0-0.2) 09/26/19 06:10 Differential Comment Manual differential 09/24/19 05:30 RBC Morphology See below 09/24/19 05:30 Polychromasia Present 09/24/19 05:30 PT 13.1 sec (9.3-11.0) H 09/22/19 06:45 INR 1.3 (0.9-1.1) H 09/22/19 06:45 D-Dimer 4475 ng/mlFEU (<500) H 09/22/19 06:45 VBG pH 7.43 (7.35-7.45) 09/21/19 20:40 VBG pCO2 42 mm/Hg (34-47) 09/21/19 20:40 VBG pO2 26 mm/Hg (28-44) L 09/21/19 20:40 VBG HCO3 28 mmol/L (22-28) 09/21/19 20:40 VBG Total CO2 26 mmol/L (22-29) 09/21/19 20:40 VBG O2 Saturation 49 % (70-80) L 09/21/19 20:40 VBG Base Excess 3.9 mmol/L (-3-3) H 09/21/19 20:40 Sodium 140 mmol/L (136-145) 09/26/19 06:10 Potassium 2.9 mmol/L (3.5-5.1) L* 09/26/19 06:10 Chloride 102 mmol/L (98-107) 09/26/19 06:10 Carbon Dioxide 30.1 mmol/L (21.0-32.0) 09/26/19 06:10 Anion Gap 7.9 mmol/L (3-11) 09/26/19 06:10 BUN 13 mg/dL (7-18) 09/26/19 06:10 Creatinine 0.94 mg/dL (0.70-1.30) 09/26/19 06:10 Estimated GFR/1.73 m2 >= 60.00 (mL/min/1.73m2) 09/26/19 06:10 Glucose 103 mg/dL (74-106) 09/26/19 06:10 Lactate 1.1 mmol/L (0.6-1.4) 09/22/19 08:07 Calcium 8.3 mg/dL (8.5-10.1) L 09/26/19 06:10 Magnesium 1.7 mg/dL (1.8-2.4) L 09/26/19 06:10 Ferritin 737 ng/mL (26-388) H 09/23/19 06:45 Total Bilirubin 3.3 mg/dL (0.2-1.0) H 09/23/19 06:45 Conjugated Bilirubin 1.53 mg/dL (0.00-0.20) H 09/23/19 06:45 AST 299 U/L (15-37) H 09/23/19 06:45 ALT 173 U/L (16-63) H 09/23/19 06:45 Alkaline Phosphatase 64 U/L (46-116) 09/23/19 06:45 Lactate Dehydrogenase 431 U/L (85-227) H 09/21/19 20:40 Creatine Kinase 2196 U/L (39-308) H 09/25/19 06:15 Troponin I 0.08 ng/Ml (<0.06) H* 09/24/19 05:30 C-Reactive Protein 10.81 mg/dL (0.0-0.3) H 09/26/19 06:10 Total Protein 5.9 g/dL (6.4-8.2) L 09/23/19 06:45 Albumin 2.6 g/dL (3.4-5.0) L 09/23/19 06:45 Lipase 42 U/L (73-393) 09/21/19 20:40 Procalcitonin 0.9 ng/mL 09/26/19 06:10 TSH 0.67 uIU/mL (0.36-3.74) 09/22/19 06:45 Urine Color Analilia (Yellow) 09/21/19 21:45 Urine Clarity Clear (Clear) 09/21/19 21:45 Urine pH 7.5 (5-8) 09/21/19 21:45 Ur Specific Dawson 1.020 (1.005-1.025) 09/21/19 21:45 Urine Protein >=300 mg/dL (Negative) H 09/21/19 21:45 Urine Ketones 40 mg/dL (Negative) H 09/21/19 21:45 Urine Blood Large (Negative) H 09/21/19 21:45 Urine Nitrite Negative (Negative) 09/21/19 21:45 Urine Bilirubin Negative (Negative) 09/21/19 21:45 Urine Urobilinogen 0.2 EU/dL (Up TO 0.2) 09/21/19 21:45 Ur Leukocyte Esterase Negative (Negative) 09/21/19 21:45 Urine RBC 3-5 HPF (0-2) H 09/21/19 21:45 Urine WBC Negative HPF (0-5) 09/21/19 21:45 Ur Epithelial Cells Negative HPF (Negative) 09/21/19 21:45 Urine Crystals Negative HPF (Negative) 09/21/19 21:45 Urine Bacteria Rare HPF (Negative) 09/21/19 21:45 Urine Casts 3-5 hyaline LPF (Negative) 09/21/19 21:45 Urine Mucus Trace (Negative) 09/21/19 21:45 Ur Culture Indicated? C&s done as ordered 09/21/19 21:45 Urine Glucose Negative mg/dL (Negative) 09/21/19 21:45 Vancomycin Trough 17.7 ug/mL (10.0-20.0) 09/24/19 13:02 COVID-19 PCR Negative (Negative) 09/21/19 20:50 Nasopharyn COVID-19 PCR Not Applicable 09/21/19 20:50 Hepatitis A IgM Ab Negative (Negative) 09/21/19 23:55 Hep Bs Antigen Negative (Negative) 09/21/19 23:55 Hep B Core Total Ab Negative (Negative) 09/21/19 23:55 Hepatitis C Antibody Negative (Negative) 09/21/19 23:55 Ref Test Perform Site [facility] hospital lab 09/21/19 20:50
[2019-09-27] MEDS: Acetaminophen 500 MG TAB 1000 MG PO ×4 (00:18→23:21)
[2019-09-27] MEDS: ceFAZolin 2 GM/50 ML BAG IVPB ×3 (02:28→17:33)
[2019-09-27] MEDS: Normal Saline Flush 10 ML SYR IVP (02:29)
[2019-09-27 03:15] VITALS: BP 162/74; PULSE 69; RESP 17; TEMP 36.3; O2SAT 95
[2019-09-27] MEDS: Levothyroxine 25 MCG TAB PO (06:15)
[2019-09-27 07:06] LABS: Abs Immature Grans 0.24 k/cumm (0.0-0.09); HCT 36.6 % (40.0-50.0); HGB 12.8 g/dL (13.5-17.5); Mean Corpuscular Hemoglobin 30.8 pg (27.0-33.0); Mean Platelet Volume 8.5 fL (8.0-11.0); Platelet Count 191 x1000/uL (130-400); RBC 4.16 m/cumm (4.50-6.00); RBC Distribution Width 12.7 % (11.8-14.1); White Blood Cell Count 7.55 k/cumm (4.4-10.8)
[2019-09-27 07:22] LABS: Absolute Eosinophil Count 0.23 k/cumm (0.0-0.7); Absolute Lymphocyte Count 1.36 k/cumm (1.2-3.4); Absolute Monocyte Count 1.06 k/cumm (0.11-0.7); Absolute Neutrophil Count 4.68 k/cumm (1.2-6.7); Anion Gap 7.7 mmol/L (3-11); Atypical Lymphocytes % 4; BUN 15 mg/dL (7-18); CO2 28.3 mmol/L (21.0-32.0); CREATININE 0.98 mg/dL (0.70-1.30); Calcium 8.4 mg/dL (8.5-10.1); Chloride 102 mmol/L (98-107); Creatine Kinase 290 U/L (39-308); Glucose 138 mg/dL (74-106); Magnesium 1.7 mg/dL (1.8-2.4); Potassium 3.1 mmol/L (3.5-5.1); Sodium 138 mmol/L (136-145)
[2019-09-27 07:23] LABS: Diff Comment Manual Differential; RBC Morphology Normal
[2019-09-27 07:25] VITALS: BP 174/84; PULSE 91; RESP 18; TEMP 37.2; O2SAT 93
--- NOTE | 2019-09-27 09:14 | PDOC.CMPRO ---
- If Service Date Differs Date of service: 09/27/19 Time of Service: 09:14 Care Management Progress Note S/O: Dawit was sitting up in a chair when CM came to see him. He was quite uncomfortable secondary to urinary retention. He was straight cathed mid morning for over 900cc. CM met with him again in the afternoon and he stated that he is feeling much better. He has had urinary issues before he stated and has seen Dr. Gao in the past. Dawit requested information about the [facility] portal and CM provided him with same. A:Dawit is a 74 year old male admitted after a fall at home. He was found to have MSSA bacteremia and PNA, present on admission P: Dawit remains inpatient at this time. It appears that he will require 6 weeks of IV antibiotics. If his regimen remains the same (Ancef 3 times a day) he will likely need to remain at [facility] in SB1 status. He continues to have positive blood cultures, including one drawn yesterday, so final plan is not clear. Dawit is willing to consider a SNF placement if needed. CM will continue to support and assess patient and discharge planning needs.
[2019-09-27] MEDS: Finasteride 5 MG TAB PO (09:19)
[2019-09-27] MEDS: Tamsulosin 0.4 MG CAPCR PO (09:19)
[2019-09-27] MEDS: Magnesium Gluconate 500 MG TAB PO (09:19)
[2019-09-27] MEDS: amLODIPine 5 MG TAB PO ×2 (09:19→13:20)
[2019-09-27] MEDS: Potassium Chloride 20 MEQ TABCR PO (09:19)
[2019-09-27] MEDS: Pantoprazole 20 MG TABCR PO (09:20)
[2019-09-27 11:48] VITALS: BP 128/71; PULSE 102; RESP 18; TEMP 36.8; O2SAT 96
--- NOTE | 2019-09-27 12:38 | W.PM.PROGNOT ---
Date of Service Date of service: 09/27/19 Time of Service: 12:38 Assessment and Plan Assessment and plan (1) Sepsis: Status: Acute Assessment and plan: Sepsis has resolved but he continues to demonstrate ongoing MSSA bacteremia. Currently on Ancef 2 g IV every 8 hours. Repeat blood cultures will be obtained tomorrow. I am will order a leukocyte nuclear scan to see if this correlates with the questionable MRI findings. If this correlates with the area in question on his lumbar spine then will know that his bacteremia is secondary to a vertebral osteomyelitis and not due to endocarditis. Regardless he will still require at least 6 weeks of Ancef. If he is not resolving he may need need to be referred to spinal surgery. Qualifiers: Sepsis acute organ dysfunction status: without acute organ dysfunction Sepsis type: methicillin susceptible Staphylococcus aureus Qualified Code(s): A41.01 - Sepsis due to Methicillin susceptible Staphylococcus aureus (2) Bilateral pneumonia: Status: Resolved Assessment and plan: As above. Clinically resolved. He has no dyspnea and no hypoxemia. Qualifiers: Lung location: lower lobe of lung Pneumonia type: due to unspecified organism Qualified Code(s): J18.9 - Pneumonia, unspecified organism (3) Rhabdomyolysis: Status: Resolved Assessment and plan: Resolved with normalization of his CK levels after aggressive IV fluid hydration. Now currently off of IV fluids and just taking p.o. (4) Elevated troponin: Status: Acute Assessment and plan: elevated troponin on admission of 0.23 that peaked at 0.45 on 09/21 and as of 09/23 was near normal at 0.08. No acute ischemic changes on admission EKG's, therefore likely d/t sepsis and rhabdomyolysis. No symptoms of chest pains. 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 Will treat as if he has it. No surgical intervention advised. Will need repeat MRI in 4 weeks. Qualifiers: Back pain laterality: midline Back pain location: low back pain Chronicity: acute Sciatica presence: without sciatica Qualified Code(s): M54.5 - Low back pain (6) Neck pain: Status: Acute Assessment and plan: CT and MRI both negative. Likely due to a muscle spasm. Improving. (7) Transaminitis: Status: Acute Assessment and plan: probably d/t sepsis and rhabdomyolysis. However repeat levels have not been checked since last elevated on 09/22. Will repeat LFT in a.m. to document resolution. (8) Ambulatory dysfunction: Status: Acute Assessment and plan: worked w/ P.T. this morning and ambulated out to nursing desk. continue P.T. (9) DVT prophylaxis: Status: Acute Assessment and plan: TEDs/SCDs. Heparin DC'ed due to thrombocytopenia which has now since resolved (lowest platelet count was 95,000 but now up to 139,000) (10) Discharge planning issues: Status: Acute Assessment and plan: DNR/DNI Will need 6 weeks of cefazolin since 1st negative blood culture (has not happened yet). Once blood cultures are clear, would need a PICC line/midline. (11) BPH (benign prostatic hyperplasia): Status: Chronic Subjective Subjective Interval history since last seen: Patient denies any back pain or neck or shoulder pains today. He remains afebrile and continues to receive Ancef 2 g IV every 8 hours. We are awaiting clearance of his blood cultures from his MSSA bacteremia. WBCs remain normalized at 7500. His BMP showed his potassium down to 3.1 and his magnesium is down to 1.7. We are correcting these with oral supplementation. His rhabdomyolysis has resolved his CK is down to 290. Presumed source of his MSSA bacteremia is from a possible vertebral osteomyelitis or discitis involving L2-L3 and L3-L4 disc levels. However because of motion artifact the scan was indeterminate. Dr. Lowery sent the study down to [facility] and reviewed it with both ID and spinal surgery. Per Dr. Lowery, spinal surgeon did not feel that there was evidence for osteomyelitis. However because the patient's had a prior history of vertebral lumbar osteomyelitis and discitis in 2013 treated at the [facility] in [facility] the infectious disease doctor recommended treating the patient for 6 weeks because of the persistent MSSA bacteremia. Echocardiogram during this admission did not show any vegetations. Patient will need 6 weeks of antibiotics from his first negative blood culture. I am repeating his blood cultures tomorrow. Patient had acute urinary retention this morning. He has known BPH. He underwent straight catheterization and we will continue to monitor for urinary retention. If he continues to require straight catheterization we will place a Hansen catheter however in trying to avoid this in order to avoid producing a urinary tract infection. Exam Narrative Exam Narrative: Elderly male sleeping upright in his bed. He awakens easily and denies any pain or dyspnea. Did have some problems with acute urinary retention this morning and required straight catheterization. Lungs are clear to auscultation. Heart is regular rate and rhythm without murmur rub or gallop. Abdomen soft and nondistended there is no suprapubic tenderness. Spine is nontender to palpation. Objective Objective Clinical Data: Abnormal lab results 09/27/19 09/27/19 Range/Units 06:50 06:50 RBC 4.16 L (4.50-6.00) m/cumm Hgb 12.8 L (13.5-17.5) g/dL Hct 36.6 L (40.0-50.0) % Absolute Monocytes 1.06 H (0.11-0.7) k/cumm Potassium 3.1 L (3.5-5.1) mmol/L Glucose 138 H (74-106) mg/dL Calcium 8.4 L (8.5-10.1) mg/dL Magnesium 1.7 L (1.8-2.4) mg/dL C-Reactive Protein 8.10 H (0.0-0.3) mg/dL Vital Signs Temperature 37.2 C 09/27/19 07:25 Temperature Source Temporal Artery Scan 09/27/19 07:25 Pulse 91 H 09/27/19 07:25 Pulse Rhythm Regular 09/27/19 09:54 Respiratory Rate 18 09/27/19 07:25 Respiratory Effort Non-Labored 09/27/19 09:54 Respiratory Depth Normal 09/27/19 09:54 Respiratory Pattern Normal 09/26/19 20:00 Blood Pressure 174/84 H 09/27/19 07:25 Blood Pressure Position Sitting 09/21/19 20:33 Pulse Oximetry 93 L 09/27/19 07:25 Oxygen Delivery Method Room Air 09/27/19 07:25 Oxygen Flow Rate 0 09/27/19 07:25 Pain Level 0 09/27/19 07:25 Comment 09/23/19 03:30 Intake & Output 09/26/19 09/27/19 09/27/19 23:59 11:59 23:59 Intake Total 1290 / 1410 530 / 530 Output Total 950 / 3450 1775 / 1775 Balance 340 / -2040 -1245 / -1245 Weight 76.1 kg Intake: IV 50 / 170 50 / 50 Oral 1240 / 1240 480 / 480 Output: Urine 950 / 3450 1774 Other: Urine Color Yellow Light Analilia Urine Appearance Clear Clear Urine Odor None Stool Size Moderate Moderate Stool Characteristics Soft Soft Formed Formed Brown Green Voiding Methods Bedside Commode Urinal Laboratory Results WBC 7.55 k/cumm (4.4-10.8) 09/27/19 06:50 RBC 4.16 m/cumm (4.50-6.00) L 09/27/19 06:50 Hgb 12.8 g/dL (13.5-17.5) L 09/27/19 06:50 Hct 36.6 % (40.0-50.0) L 09/27/19 06:50 MCV 88.0 fL (80-95) 09/27/19 06:50 MCH 30.8 pg (27.0-33.0) 09/27/19 06:50 MCHC 35.0 g/dL (32.0-36.0) 09/27/19 06:50 RDW 12.7 % (11.8-14.1) 09/27/19 06:50 Plt Count 191 x1000/uL (130-400) 09/27/19 06:50 MPV 8.5 fL (8.0-11.0) 09/27/19 06:50 Immature Gran % See Differential 09/27/19 06:50 Neutrophils % 62.0 09/27/19 06:50 Band Neutrophils % 10.0 % 09/23/19 06:45 Lymphocytes % 14.0 09/27/19 06:50 Atypical Lymphs % 4 09/27/19 06:50 Monocytes % 14.0 09/27/19 06:50 Eosinophils % 3.0 09/27/19 06:50 Basophils % 0.0 09/27/19 06:50 Metamyelocytes % 2.0 % 09/27/19 06:50 Myelocytes % 1.0 % 09/27/19 06:50 Absolute Neutrophils 4.68 k/cumm (1.2-6.7) 09/27/19 06:50 Absolute Lymphocytes 1.36 k/cumm (1.2-3.4) 09/27/19 06:50 Absolute Monocytes 1.06 k/cumm (0.11-0.7) H 09/27/19 06:50 Absolute Eosinophils 0.23 k/cumm (0.0-0.7) 09/27/19 06:50 Absolute Basophils 0.00 k/cumm (0.0-0.2) 09/27/19 06:50 Differential Comment Manual differential 09/27/19 06:50 RBC Morphology Normal 09/27/19 06:50 Polychromasia Present 09/24/19 05:30 PT 13.1 sec (9.3-11.0) H 09/22/19 06:45 INR 1.3 (0.9-1.1) H 09/22/19 06:45 D-Dimer 4475 ng/mlFEU (<500) H 09/22/19 06:45 VBG pH 7.43 (7.35-7.45) 09/21/19 20:40 VBG pCO2 42 mm/Hg (34-47) 09/21/19 20:40 VBG pO2 26 mm/Hg (28-44) L 09/21/19 20:40 VBG HCO3 28 mmol/L (22-28) 09/21/19 20:40 VBG Total CO2 26 mmol/L (22-29) 09/21/19 20:40 VBG O2 Saturation 49 % (70-80) L 09/21/19 20:40 VBG Base Excess 3.9 mmol/L (-3-3) H 09/21/19 20:40 Sodium 138 mmol/L (136-145) 09/27/19 06:50 Potassium 3.1 mmol/L (3.5-5.1) L 09/27/19 06:50 Chloride 102 mmol/L (98-107) 09/27/19 06:50 Carbon Dioxide 28.3 mmol/L (21.0-32.0) 09/27/19 06:50 Anion Gap 7.7 mmol/L (3-11) 09/27/19 06:50 BUN 15 mg/dL (7-18) 09/27/19 06:50 Creatinine 0.98 mg/dL (0.70-1.30) 09/27/19 06:50 Estimated GFR/1.73 m2 >= 60.00 (mL/min/1.73m2) 09/27/19 06:50 Glucose 138 mg/dL (74-106) H 09/27/19 06:50 Lactate 1.1 mmol/L (0.6-1.4) 09/22/19 08:07 Calcium 8.4 mg/dL (8.5-10.1) L 09/27/19 06:50 Magnesium 1.7 mg/dL (1.8-2.4) L 09/27/19 06:50 Ferritin 737 ng/mL (26-388) H 09/23/19 06:45 Total Bilirubin 3.3 mg/dL (0.2-1.0) H 09/23/19 06:45 Conjugated Bilirubin 1.53 mg/dL (0.00-0.20) H 09/23/19 06:45 AST 299 U/L (15-37) H 09/23/19 06:45 ALT 173 U/L (16-63) H 09/23/19 06:45 Alkaline Phosphatase 64 U/L (46-116) 09/23/19 06:45 Lactate Dehydrogenase 431 U/L (85-227) H 09/21/19 20:40 Creatine Kinase 290 U/L (39-308) 09/27/19 06:50 Troponin I 0.08 ng/Ml (<0.06) H* 09/24/19 05:30 C-Reactive Protein 8.10 mg/dL (0.0-0.3) H 09/27/19 06:50 Total Protein 5.9 g/dL (6.4-8.2) L 09/23/19 06:45 Albumin 2.6 g/dL (3.4-5.0) L 09/23/19 06:45 Lipase 42 U/L (73-393) 09/21/19 20:40 Procalcitonin 0.9 ng/mL 09/26/19 06:10 TSH 0.67 uIU/mL (0.36-3.74) 09/22/19 06:45 Urine Color Analilia (Yellow) 09/21/19 21:45 Urine Clarity Clear (Clear) 09/21/19 21:45 Urine pH 7.5 (5-8) 09/21/19 21:45 Ur Specific Friedens 1.020 (1.005-1.025) 09/21/19 21:45 Urine Protein >=300 mg/dL (Negative) H 09/21/19 21:45 Urine Ketones 40 mg/dL (Negative) H 09/21/19 21:45 Urine Blood Large (Negative) H 09/21/19 21:45 Urine Nitrite Negative (Negative) 09/21/19 21:45 Urine Bilirubin Negative (Negative) 09/21/19 21:45 Urine Urobilinogen 0.2 EU/dL (Up TO 0.2) 09/21/19 21:45 Ur Leukocyte Esterase Negative (Negative) 09/21/19 21:45 Urine RBC 3-5 HPF (0-2) H 09/21/19 21:45 Urine WBC Negative HPF (0-5) 09/21/19 21:45 Ur Epithelial Cells Negative HPF (Negative) 09/21/19 21:45 Urine Crystals Negative HPF (Negative) 09/21/19 21:45 Urine Bacteria Rare HPF (Negative) 09/21/19 21:45 Urine Casts 3-5 hyaline LPF (Negative) 09/21/19 21:45 Urine Mucus Trace (Negative) 09/21/19 21:45 Ur Culture Indicated? C&s done as ordered 09/21/19 21:45 Urine Glucose Negative mg/dL (Negative) 09/21/19 21:45 Vancomycin Trough 17.7 ug/mL (10.0-20.0) 09/24/19 13:02 COVID-19 PCR Negative (Negative) 09/21/19 20:50 Nasopharyn COVID-19 PCR Not Applicable 09/21/19 20:50 Hepatitis A IgM Ab Negative (Negative) 09/21/19 23:55 Hep Bs Antigen Negative (Negative) 09/21/19 23:55 Hep B Core Total Ab Negative (Negative) 09/21/19 23:55 Hepatitis C Antibody Negative (Negative) 09/21/19 23:55 Ref Test Perform Site [facility] hospital lab 09/21/19 20:50
--- NOTE | 2019-09-27 15:11 | PTTR_ITS ---
Date of service: 09/27/19 Time of Service: 15:11 PT Notes Visit Reasons: Pneumonia Inpatient Physical Therapy Treatment Note Date: 09/27/2019 Subjective: Dawit is happy with how much improvement he feels he is gaining with participation in physical therapy sessions. He denies any discomfort on the neck, his back, and his abdominal area. He denies chest pain, dizziness, and headache throughout session. He states that he may get his Hansen catheter back depending on how he voids throughout the day. He said that he slept well last night. He is agreeable to staying for as long as he needs to in order to complete his antibiotic course. Objective: General Observation: Telemetry monitoring remains in place. IV access in right UE. R-sided torticollis (acquired?). Genu varum. Mental Status: Alert and oriented as to person, place, time and purpose Pain: None reported Bed Mobility/Transfers: Sit to supine standby assist with HOB to 30 degrees and using BUE for support Sit to stand supervision using BUE for support, minimal cueing required Stand to sit supervision using BUE for support, minimal cueing required Bed to chair supervision using BUE for support, minimal cueing required Chair to bed supervision using BUE for support, minimal cueing required Gait: Session 1??Dawit was able to tolerate 150 feet +200 feet using front wheeled walker without wheelchair follow with full weight bearing requiring only standby assist with no episode of posterior swaying or lack of posterior balance awareness. Chayo increasing. Step length and height increasing. Step throu gh gait pattern. Genu varum seen. No SOB observed. Session 2??Dawit was able to tolerate level surface ambulation of 520 feet with standby assist without wheelchair follow, using front wheeled walker with full weight bearing. No posterior sway seen. Patient is able to manage center of gravity forward while walking even during directional changes. Chayo increasing. Step length and height increasing. Step through gait pattern. Genu varum. No SOB observed. THERA EX: Patient tolerated sit to stand activity from edge of mat with arms across chest x10 without any loss of balance. Patient continued activity progression from standing up from mat with arms across chest to stepping sideways and then closing the step with the other foot followed by sitting back down on the edge of the mat 5 times to the right and another 5 times to the left with minimal loss of balance seen x 2. Patient also tolerated step ups using 4 inch steps while holding onto bilateral rails with a 4 pound ankle weights on both sides times 10 reps without any undue difficulty or shortness of breath. Balance: Static Sitting: Normal Dynamic Sitting: Normal Static Standing: Fair Dynamic Standing: Fair Assessment: Patient has demonstrated meaningful functional improvements as evidenced by increased independence with sit to stand movement transitions without loss of balance posteriorly, by increased control of center of gravity during dynamic activities, and by increasing distance covered during level surface ambulation without any loss of balance. Patient also is able to tole rate exercise progression as indicated above. He will continue to benefit from skilled services in order to achieve modified independence with the use of a single-point cane for all level surface ambulation in anticipation of return to home when medically cleared. PLAN: Continue with PT POC as initially established DISCHARGE RECOMMENDATIONS: Patient will benefit from home health PT services in order to progress mobility level using least restrictive assistive ambulatory device, assess home safety, identify additional equipment needs, and establish a functional maintenance program that will increase ability of patient to remain at home. TREATMENT CODE/TIME: Session 1??[id number] x 16 minutes, [id number] x 25 minutes beginning at 11:01 AM. Session 2??[id number] x 39 minutes beginning at 15:11 PM.
[2019-09-27 15:24] VITALS: BP 155/72; PULSE 85; RESP 18; TEMP 36.2; O2SAT 96
[2019-09-27 20:30] VITALS: BP 148/72; PULSE 86; RESP 18; TEMP 37.1; O2SAT 96
[2019-09-27 23:14] VITALS: BP 148/82; PULSE 92; RESP 18; TEMP 37.5; O2SAT 94
[2019-09-27] MEDS: Lidocaine 2% Jelly 11 ML SYR (23:21)
[2019-09-28] VITALS (8 sets, daily range): BP systolic 115–179; BP diastolic 61–80; PULSE 79–95; RESP 16–19; TEMP 36.2–37.1; O2SAT 95–96
[2019-09-28] MEDS: Normal Saline Flush 10 ML SYR IVP ×2 (02:14→10:19)
[2019-09-28] MEDS: ceFAZolin 2 GM/50 ML BAG IVPB ×3 (02:14→18:16)
[2019-09-28] MEDS: Lidocaine 2% Jelly 6 ML SYR (04:27)
[2019-09-28] MEDS: Levothyroxine 25 MCG TAB PO (06:29)
[2019-09-28 07:29] LABS: Abs Immature Grans 0.39 k/cumm (0.0-0.09); HGB 12.6 g/dL (13.5-17.5); Mean Corpuscular Hemoglobin 31.1 pg (27.0-33.0); Mean Corpuscular Volume 88.9 fL (80-95); Mean Platelet Volume 8.2 fL (8.0-11.0); RBC 4.05 m/cumm (4.50-6.00); White Blood Cell Count 8.34 k/cumm (4.4-10.8)
[2019-09-28 07:38] LABS: ALT 116 U/L (16-63); AST 98 U/L (15-37); Albumin 2.5 g/dL (3.4-5.0); Alkaline Phosphatase 168 U/L (46-116); Anion Gap 2.5 mmol/L (3-11); BUN 14 mg/dL (7-18); Bilirubin, Total 1.8 mg/dL (0.2-1.0); C-Reactive Protein 5.11 mg/dL (0.0-0.3); CO2 33.5 mmol/L (21.0-32.0); CREATININE 0.92 mg/dL (0.70-1.30); Calcium 8.4 mg/dL (8.5-10.1); Chloride 103 mmol/L (98-107); Glucose 116 mg/dL (74-106); Potassium 3.3 mmol/L (3.5-5.1); Sodium 139 mmol/L (136-145); Total Protein 6.3 g/dL (6.4-8.2)
[2019-09-28 08:04] LABS: Absolute Lymphocyte Count 1.92 k/cumm (1.2-3.4); Absolute Neutrophil Count 5.34 k/cumm (1.2-6.7); Atypical Lymphocytes % 2
[2019-09-28 08:05] LABS: Absolute Eosinophil Count 0.25 k/cumm (0.0-0.7); Absolute Monocyte Count 0.83 k/cumm (0.11-0.7); Diff Comment Manual Differential
[2019-09-28] MEDS: Finasteride 5 MG TAB PO (08:05)
[2019-09-28] MEDS: Acetaminophen 500 MG TAB 1000 MG PO ×3 (08:05→23:17)
[2019-09-28] MEDS: Tamsulosin 0.4 MG CAPCR 0.8 MG PO (08:05)
[2019-09-28 08:06] LABS: Platelet Count 276 x1000/uL (130-400); RBC Morphology Normal
[2019-09-28] MEDS: amLODIPine 5 MG TAB 10 MG PO (08:06)
[2019-09-28] MEDS: Magnesium Gluconate 500 MG TAB PO (08:06)
[2019-09-28] MEDS: Pantoprazole 20 MG TABCR PO (08:07)
[2019-09-28] MEDS: Lidocaine 5% Patch 1 PATCH TP (08:07)
[2019-09-28] MEDS: Lidocaine 2% Jelly 11 ML SYR UR (12:00)
--- NOTE | 2019-09-28 12:07 | W.PM.PROGNOT ---
Date of Service Date of service: 09/28/19 Time of Service: 12:07 Assessment and Plan Assessment and plan (1) MSSA bacteremia: Status: Acute Assessment and plan: Patient has been recovering from acute sepsis d/t MSSA bacteremia, the presumed source is a lumbar osteomyelitis/discitis. MRI was equivocal for discitis at the L2-L3 and L3-4 levels. WBC scan had been scheduled for last week but then canceled. I reorded the study over the weekend and per NM it will be done tomorrow afternoon. I am doing this to confirm the MRI findings. Irregardless, he will need 6 wk of Ancef 2 gm IV Q8hr (6 wks from first negative blood culture). He has had 6/ blood cultures positive for MSSA from 09/20 through 09/24. I repeated his blood cultures today. He has been on the Ancef since 09/24 so hopefully his blood cultures will start to come back negative. He has been afebrile and his back pain has resolved. I explained to him the implications for need for 6 weeks of antibiotics and need for SNF to complete this. This came as news to him. I reminded him that he underwent similar prolonged antibiotics in 2013 for the same condition. He will need jail antibiotic suppression once he has successfully completed his 6 wk of Ancef. (2) Lumbar discitis: Status: Suspected Assessment and plan: as above. check WBC scan tomorrow. check blood cultures from today. cont. Ancef 2 gm IV q8 hr. (3) Transaminitis: Status: Acute Assessment and plan: His transamintis was felt to be d/t sepsis and rhabdomyolysis however, his transaminases remain elevated albeit lower than on admission. This may have represented shock liver; nevertheless, I will check hepatitis screen. He had a CT of his abdomen/pelvis on admission on 09/20 which showed no structural abnormalities of his liver (except right lobe cyst)/spleen/pancreas and no biliary dilatation. Other than checking hepatitis profile, I will simply monitor this as this should continue to improve as his rhabdomyolysis has resolved and he no longer is in a septic state. (4) Ambulatory dysfunction: Status: Acute Assessment and plan: Per P.T. they say that he is ambulating well. Per their note from yesterday, he ambulated twice at 150 and 200 ft w/ FWW w/ only SBA. No LOB. (5) Urinary retention: Status: Acute Assessment and plan: Patient continues to have high post void residuals of 400 to 700 mL. He has known BPH for which he is on Tamsulosin (was 0.4 mg bid but I changed this to 0.8 mg once per day) and Proscar. I spoke w/ Dr. 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 (6) BPH (benign prostatic hyperplasia): Status: Chronic Assessment and plan: continue Tamsulosin and Proscar for now. Await Dr. Gao's evaluation. Qualifiers: Lower urinary tract symptom presence: symptoms present Lower urinary tract symptom detail: urinary retention Qualified Code(s): N40.1 - Benign prostatic hyperplasia with lower urinary tract symptoms; R33.8 - Other retention of urine (7) Constipation: Status: Acute Assessment and plan: will give him Miralax and place him on stool softeners. If no results then try an enema Qualifiers: Constipation type: unspecified constipation type Qualified Code(s): K59.00 - Constipation, unspecified (8) DVT prophylaxis: Status: Acute Assessment and plan: TEDs/SCDs. Heparin DC'ed due to thrombocytopenia which has now since resolved (lowest platelet count was 95,000 but now up to 139,000) (9) Discharge planning issues: Status: Acute Assessment and plan: DNR/DNI Will need 6 weeks of cefazolin since 1st negative blood culture (has not happened yet). Once blood cultures are clear, would need a PICC line/midline. Subjective Subjective Interval history since last seen: Patient continues to have high postvoid residuals. He is requiring straight catheterization. He is also complaining of constipation. He has small bowel movement this morning but not his normal bowel movement. We will give him stool softeners and laxatives to see if this helps. This may be contributing to his urine retention in addition to his BPH. However I am have him see his urologist Dr. Gao and asked Dr. Gao to evaluate the urinary retention. I am concerned because of the probable cause of his MSSA bacteremia is a lumbar discitis. He has no back pain today. Exam Narrative Exam Narrative: Elderly male sitting up in his chair in no distress. He is alert and oriented person place time circumstance denies any pain. Lungs are clear to auscultation. Heart is regular rate and rhythm without murmur rub or gallop. Abdomen is soft nontender but feels to be slightly distended. Normoactive bowel sounds. No suprapubic tenderness. Lower extremities without peripheral cyanosis or edema. Spine is nontender to palpation. He has a small pressure sore over the skin over the lower thoracic spine that is healing nonindurated and no purulence. Objective Objective Clinical Data: Abnormal lab results 09/28/19 09/28/19 Range/Units 07:05 07:05 RBC 4.05 L (4.50-6.00) m/cumm Hgb 12.6 L (13.5-17.5) g/dL Hct 36.0 L (40.0-50.0) % Absolute Monocytes 0.83 H (0.11-0.7) k/cumm Potassium 3.3 L (3.5-5.1) mmol/L Carbon Dioxide 33.5 H (21.0-32.0) mmol/L Anion Gap 2.5 L (3-11) mmol/L Glucose 116 H (74-106) mg/dL Calcium 8.4 L (8.5-10.1) mg/dL Total Bilirubin 1.8 H (0.2-1.0) mg/dL AST 98 H (15-37) U/L ALT 116 H (16-63) U/L Alkaline Phosphatase 168 H (46-116) U/L C-Reactive Protein 5.11 H (0.0-0.3) mg/dL Total Protein 6.3 L (6.4-8.2) g/dL Albumin 2.5 L (3.4-5.0) g/dL Vital Signs Temperature 36.2 C L 09/28/19 11:16 Temperature Source Tympanic 09/28/19 11:16 Pulse 92 H 09/28/19 11:16 Pulse Rhythm Regular 09/27/19 09:54 Respiratory Rate 19 09/28/19 11:16 Respiratory Effort Non-Labored 09/27/19 20:00 Respiratory Depth Normal 09/27/19 20:00 Respiratory Pattern Normal 09/27/19 20:00 Blood Pressure 130/63 09/28/19 11:16 Blood Pressure Position Sitting 09/21/19 20:33 Pulse Oximetry 96 05/04/20 11:16 Oxygen Delivery Method Room Air 09/28/19 11:16 Oxygen Flow Rate 0 09/28/19 11:16 Pain Level 0 09/28/19 11:16 Comment 09/23/19 03:30 Intake & Output 09/27/19 09/28/19 09/28/19 23:59 11:59 23:59 Intake Total 375 / 955 550 / 550 Output Total 625 / 3025 1799 / 1799 Balance -250 / -2070 -1249 / -1249 Weight 74.1 kg Intake: IV 50 / 150 50 / 50 Oral 325 / 805 500 / 500 Output: Urine 625 / 3025 1799 / 179 Other: Urine Color Dark Analilia Yellow Urine Appearance Clear Clots Comment straight cath 600 out Stool Size Moderate Small Stool Characteristics Soft Formed Formed Hard Brown Laboratory Results WBC 8.34 k/cumm (4.4-10.8) 09/28/19 07:05 RBC 4.05 m/cumm (4.50-6.00) L 09/28/19 07:05 Hgb 12.6 g/dL (13.5-17.5) L 09/28/19 07:05 Hct 36.0 % (40.0-50.0) L 09/28/19 07:05 MCV 88.9 fL (80-95) 09/28/19 07:05 MCH 31.1 pg (27.0-33.0) 09/28/19 07:05 MCHC 35.0 g/dL (32.0-36.0) 09/28/19 07:05 RDW 13.0 % (11.8-14.1) 09/28/19 07:05 Plt Count 276 x1000/uL (130-400) 09/28/19 07:05 MPV 8.2 fL (8.0-11.0) 09/28/19 07:05 Immature Gran % 0.0 % 09/28/19 07:05 Neutrophils % 62.0 09/28/19 07:05 Band Neutrophils % 2.0 % 09/28/19 07:05 Lymphocytes % 21.0 09/28/19 07:05 Atypical Lymphs % 2 09/28/19 07:05 Monocytes % 10.0 09/28/19 07:05 Eosinophils % 3.0 09/28/19 07:05 Basophils % 0.0 09/28/19 07:05 Metamyelocytes % 2.0 % 09/27/19 06:50 Myelocytes % 1.0 % 09/27/19 06:50 Absolute Neutrophils 5.34 k/cumm (1.2-6.7) 09/28/19 07:05 Absolute Lymphocytes 1.92 k/cumm (1.2-3.4) 09/28/19 07:05 Absolute Monocytes 0.83 k/cumm (0.11-0.7) H 09/28/19 07:05 Absolute Eosinophils 0.25 k/cumm (0.0-0.7) 09/28/19 07:05 Absolute Basophils 0.00 k/cumm (0.0-0.2) 09/28/19 07:05 Differential Comment Manual differential 09/28/19 07:05 RBC Morphology Normal 09/28/19 07:05 Polychromasia Present 09/24/19 05:30 PT 13.1 sec (9.3-11.0) H 09/22/19 06:45 INR 1.3 (0.9-1.1) H 09/22/19 06:45 D-Dimer 4475 ng/mlFEU (<500) H 09/22/19 06:45 VBG pH 7.43 (7.35-7.45) 09/21/19 20:40 VBG pCO2 42 mm/Hg (34-47) 09/21/19 20:40 VBG pO2 26 mm/Hg (28-44) L 09/21/19 20:40 VBG HCO3 28 mmol/L (22-28) 09/21/19 20:40 VBG Total CO2 26 mmol/L (22-29) 09/21/19 20:40 VBG O2 Saturation 49 % (70-80) L 09/21/19 20:40 VBG Base Excess 3.9 mmol/L (-3-3) H 09/21/19 20:40 Sodium 139 mmol/L (136-145) 09/28/19 07:05 Potassium 3.3 mmol/L (3.5-5.1) L 09/28/19 07:05 Chloride 103 mmol/L (98-107) 09/28/19 07:05 Carbon Dioxide 33.5 mmol/L (21.0-32.0) H 09/28/19 07:05 Anion Gap 2.5 mmol/L (3-11) L 09/28/19 07:05 BUN 14 mg/dL (7-18) 09/28/19 07:05 Creatinine 0.92 mg/dL (0.70-1.30) 09/28/19 07:05 Estimated GFR/1.73 m2 >= 60.00 (mL/min/1.73m2) 09/28/19 07:05 Glucose 116 mg/dL (74-106) H 09/28/19 07:05 Lactate 1.1 mmol/L (0.6-1.4) 09/22/19 08:07 Calcium 8.4 mg/dL (8.5-10.1) L 09/28/19 07:05 Magnesium 1.7 mg/dL (1.8-2.4) L 09/27/19 06:50 Ferritin 737 ng/mL (26-388) H 09/23/19 06:45 Total Bilirubin 1.8 mg/dL (0.2-1.0) H 09/28/19 07:05 Conjugated Bilirubin 1.53 mg/dL (0.00-0.20) H 09/23/19 06:45 AST 98 U/L (15-37) H 09/28/19 07:05 ALT 116 U/L (16-63) H 09/28/19 07:05 Alkaline Phosphatase 168 U/L (46-116) H 09/28/19 07:05 Lactate Dehydrogenase 431 U/L (85-227) H 09/21/19 20:40 Creatine Kinase 290 U/L (39-308) 09/27/19 06:50 Troponin I 0.08 ng/Ml (<0.06) H* 09/24/19 05:30 C-Reactive Protein 5.11 mg/dL (0.0-0.3) H 09/28/19 07:05 Total Protein 6.3 g/dL (6.4-8.2) L 09/28/19 07:05 Albumin 2.5 g/dL (3.4-5.0) L 09/28/19 07:05 Lipase 42 U/L (73-393) 04/27/20 20:40 Procalcitonin 0.9 ng/mL 09/26/19 06:10 TSH 0.67 uIU/mL (0.36-3.74) 09/22/19 06:45 Urine Color Analilia (Yellow) 09/21/19 21:45 Urine Clarity Clear (Clear) 09/21/19 21:45 Urine pH 7.5 (5-8) 09/21/19 21:45 Ur Specific [place] 1.020 (1.005-1.025) 09/21/19 21:45 Urine Protein >=300 mg/dL (Negative) H 09/21/19 21:45 Urine Ketones 40 mg/dL (Negative) H 09/21/19 21:45 Urine Blood Large (Negative) H 09/21/19 21:45 Urine Nitrite Negative (Negative) 09/21/19 21:45 Urine Bilirubin Negative (Negative) 09/21/19 21:45 Urine Urobilinogen 0.2 EU/dL (Up TO 0.2) 09/21/19 21:45 Ur Leukocyte Esterase Negative (Negative) 09/21/19 21:45 Urine RBC 3-5 HPF (0-2) H 09/21/19 21:45 Urine WBC Negative HPF (0-5) 09/21/19 21:45 Ur Epithelial Cells Negative HPF (Negative) 09/21/19 21:45 Urine Crystals Negative HPF (Negative) 09/21/19 21:45 Urine Bacteria Rare HPF (Negative) 09/21/19 21:45 Urine Casts 3-5 hyaline LPF (Negative) 09/21/19 21:45 Urine Mucus Trace (Negative) 09/21/19 21:45 Ur Culture Indicated? C&s done as ordered 09/21/19 21:45 Urine Glucose Negative mg/dL (Negative) 09/21/19 21:45 Vancomycin Trough 17.7 ug/mL (10.0-20.0) 09/24/19 13:02 COVID-19 PCR Negative (Negative) 09/21/19 20:50 Nasopharyn COVID-19 PCR Not Applicable 09/21/19 20:50 Hepatitis A IgM Ab Negative (Negative) 09/21/19 23:55 Hep Bs Antigen Negative (Negative) 09/21/19 23:55 Hep B Core Total Ab Negative (Negative) 09/21/19 23:55 Hepatitis C Antibody Negative (Negative) 09/21/19 23:55 Ref Test Perform Site [facility] hospital lab 09/21/19 20:50
--- NOTE | 2019-09-28 12:52 | UCONE_ITS ---
Date of service: 09/28/19 Time of Service: 12:52 Assessment and Plan Assessment and plan (1) Urinary retention: Status: Acute Assessment and plan: He has several possible etiologies for his inability to void at this time. Almost all men in his age group have some component of prostatic hypertrophy. This can contribute to voiding symptoms. We also need to be mindful that lumbar disc disease with neurologic compromise can affect voiding as well. This effect is most often seen with disc herniatio ns, but I would expect osteomyelitis could have the same effect. At this point, the imaging studies are not definitive, so will be interesting to see what the labeled white blood cell scan looks like. We can then decide if we should treat this gentleman as a patient with spinal shock (in which case he may regain some of his voiding function with time) or as a patient with bladder outlet obstruction in which case his symptoms may progress. Since the patient was up sitting in his chair eating lunch when I saw him, I did not do a digital rectal exam on him. It will be interesting to see if his perineal sensation and his anal sphincter tone are intact or have been compromised. It would also be interesting to see if his previous episode when he was in [place] was infectious in nature and involved the same organism. History of Present Illness History of Present Illness Chief Complaint: Urinary retention Narrative: This is a 74-year-old gentleman who is well-known to me from his clinic appointments. These appointments had to do more with sexual dysfunction and voiding dysfunction. He does have a long history of lower urinary tract symptoms. He has been on a combination of 5 alpha reductase inhibitors and alpha blockers since my first visit with him back in 2018. He is hospitalized now after being admitted with sepsis, rhabdomyolysis and ambulatory dysfunction. His blood cultures grew staph aureus. It is felt that he may have osteomyelitis of the spine although his MRI showed significant motion artifact. He is due for a labeled white blood cell scan in the next few days. He does not recall any type of invasive procedure such as a lumbar punctu re, epidural injection or spinal anesthetic having been performed in the past. His strength and ambulation have gradually increased during the hospitalization. He had an indwelling catheter when he was acutely ill. Since taking the catheter out, he has had been unable to void and has required intermittent catheterization. He tells me he still able to sense when he needs to void, he is just not able to initiate a stream. He is not having any pain in the lower extremities, but he does admit to weakness. He admits to a fall prior to admission. He also has noticed difficulty with his bowels over the past few months. He has had both loose stools and constipation, but currently he is having more issues with constipation. He has had no fecal or urinary incontinence. He does recall an episode during which he was hospitalized in [place] back around 2011. He recalls needing antibiotics both in the inpatient setting and in a rehab setting. He recalls that he had difficulty walking and had to go to rehab for physical therapy as well as antibiotic therapy. He does not recall the exact etiology of this episode. He does recall being told that he may have a flareup at some time in the future. Review of Systems Narrative: No fevers or chills No vision change or dysphasia No diabetes or thyroid No shortness of breath, cough or hemoptysis No chest pain or palpitations No nausea, vomiting, hepatitis, ulcers, jaundice No seizures, strokes or peripheral neuropathy No bleeding disorders or anemia No gout. Hx neck and low back pain. [facility] Medical History (Updated 09/28/19 @ 12:46 by Ralph Brito) BPH (benign prostatic hyperplasia) (Chronic) Conductive hearing loss (Acute) Epidural abscess (Acute ~10/09/13) Erectile dysfunction (Inactive) History of Clostridioides difficile colitis (Acute ~10/2013) History of small bowel obstruction (Acute 07/12/15) MSSA (methicillin susceptible Staphylococcus aureus) septicemia (Acute 10/09/13) in setting of ruputured appendicitis and found to have disciitis epidural abscess, [facility], [place], [place]; Dr. Casey Mixon, infectious disease Osteomyelitis of vertebra of thoracolumbar region (Acute ~10/09/13) treated w/ 6 weeks of Ancef; seen by Dr. Casey Mixon, infectious disease, [facility], [place], [place]; completed treatment 11/20/2013; complicated by C. difficile colitis Panic anxiety syndrome (Acute) Sensorineural hearing loss (Acute) Surgical History (Updated 09/26/19 @ 16:05 by Ralph Brito) H/O sinus surgery (Acute) History of bilateral cataract extraction (Acute) History of cholecystectomy (Chronic ~1998) History of tonsillectomy and adenoidectomy (Acute) S/P laparoscopic appendectomy (Acute 10/09/13) S/P left inguinal hernia repair (Acute) Social History Smoking/Tobacco Use Status: Former Tobacco Use Alcohol Intake: never Drug use: Never Substance use type: does not use Do you feel safe at home: Yes Do you feel safe in your relationship?: Yes Exam Narrative Exam Narrative: He is seen sitting up at the bedside. He does not appear septic or toxic presently His vital signs are documented elsewhere His chest wall motion is normal. He is not short of breath at rest. His abdomen is soft. There is no guarding or rebound tenderness. A digital rectal exam was not done during this encounter, but will be accomplished during this admission. He is awake and alert. Results Last Vital Signs Temp 36.2 C L 09/28/19 11:16 Pulse 92 H 09/28/19 11:16 Resp 19 09/28/19 11:16 BP 130/63 09/28/19 11:16 Pulse Ox 96 09/28/19 11:16 Labs Result diagrams: 09/28/19 07:05 09/29/19 06:20 Labs: Laboratory Results - last 24 hr 09/28/19 09/28/19 07:05 07:05 WBC 8.34 RBC 4.05 L Hgb 12.6 L Hct 36.0 L MCV 88.9 MCH 31.1 MCHC 35.0 RDW 13.0 Plt Count 276 MPV 8.2 Immature Gran % 0.0 Neutrophils % 62.0 Band Neutrophils % 2.0 Lymphocytes % 21.0 Atypical Lymphs % 2 Monocytes % 10.0 Eosinophils % 3.0 Basophils % 0.0 Absolute Neutrophils 5.34 Absolute Lymphocytes 1.92 Absolute Monocytes 0.83 H Absolute Eosinophils 0.25 Absolute Basophils 0.00 Differential Comment Manual differential RBC Morphology Normal Sodium 139 Potassium 3.3 L Chloride 103 Carbon Dioxide 33.5 H Anion Gap 2.5 L BUN 14 Creatinine 0.92 Estimated GFR/1.73 m2 >= 60.00 Glucose 116 H Calcium 8.4 L Total Bilirubin 1.8 H AST 98 H ALT 116 H Alkaline Phosphatase 168 H C-Reactive Protein 5.11 H Total Protein 6.3 L Albumin 2.5 L
[2019-09-28] MEDS: Potassium Chloride 20 MEQ TABCR 40 MEQ PO (14:03)
[2019-09-28] MEDS: Senna TAB 1 TAB PO (14:03)
--- NOTE | 2019-09-28 14:04 | PTTR_ITS ---
Date of service: 09/28/19 Time of Service: 14:04 PT Notes Visit Reasons: Pneumonia Inpatient Physical Therapy Treatment Note Date: 09/28/2019 Subjective: Dawit voices his concern about his continued issues with urination as well as his bowel movement. He elaborates that at home he never had any problem with bowel movement as he was taking MiraLAX regularly. He reports that he may go somewhere else to continue with his antibiotic regimen. He did emphasize that he would rather stay in this building for the antibiotics and continue with therapy if possible. He added that he bent twice last night trying to reach for something and caused his neck to hurt again. Objective: General Observation: Telemetry discharged as of today. IV access in right UE. R-sided torticollis (acquired?). Genu varum. Mental Status: Alert and oriented as to person, place, time and purpose Pain: Mild pain in the neck area Bed Mobility/Transfers: Sit to supine standby assist with HOB to 30 degrees and using BUE for support Sit to stand supervision using BUE for support, minimal cueing required Stand to sit supervision using BUE for support, minimal cueing required Bed to chair supervision using BUE for support, minimal cueing required Chair to bed supervision using BUE for support, minimal cueing required Gait: Session 1??Dawit was able to tolerate 150 feet +200 feet using front wheeled walker with full weight bearing requiring only standby assist with no episode of posterior swaying or lack of posterior balance awareness. Chayo increasing. Step length and height increasing. Step through gait pattern. Base of support now wider. No SOB observed. Session 2??Dwait was able to tolerate level surface ambulation of 720 feet with standby assist using front wheeled walker with full weight bearing. No pos terior sway seen. Patient is able to manage center of gravity forward while walking even during directional changes. Chayo increasing. Step length and height increasing. Step through gait pattern. Base of support now wider no SOB observed. Patient did complain of headache after activity. Nurse notified. DAVID EX: Session 1??Dawit tolerated sit to stand activity from edge of mat with arms across chest x10 without any loss of balance. Patient continued activity progression from standing up from mat with arms across chest to stepping 3 times sideways to the right x2 and then to the left x 2 followed by sitting back down without L OB. Patient also tolerated step ups using 4 inch steps while holding onto bilateral rails with a 4 pound ankle weights on both sides times 15 reps without any undue difficulty or shortness of breath. Patient also managed to perform standing hip abduction x 15 on the right LE and x15 on the left LE with 4 pound ankle weights without undue difficulty. Pursed lip breathing x5 with heel raises done after each exercises Session 2??20 performed hip extension x15 on the right side and 15 on the left side. He also worked on backing up 5 steps onto the chair using front wheeled walker without any LOB. Pursed lip breathing x5 with heel raises done after each exercises Assessment: Patient continues to demonstrate meaningful functional improvements as evidenced by increased independence with sit to stand movement transitions without loss of balance posteriorly, by increased control of center of gravity during dynamic activities, and by increasing distance covered during level surface ambulation without any loss of balance. Patient also is able to tolerate exercise progression as noted above. He will continue to benefit from skilled services in order to achieve modified independence with the use of a single-point cane for all level surface ambulation in anticipation of return to home when medically cleared. PLAN: Continue with PT POC as initially established DISCHARGE RECOMMENDATIONS: SB 1 versus SNF placement. TREATMENT CODE/TIME: Session 1??[id number] x 15 minutes, [id number] x 25 minutes beginning at 10:05 AM. Session 2??[id number] x 31 minutes beginning at 14:04 PM.
[2019-09-28] MEDS: Polyethylene Glycol 3350 17 GM PACKET PO (14:07)
--- NOTE | 2019-09-28 15:02 | CHAPLAIN ---
Willy was sitting up in his chair when I visited. Last week he told me about his 's three years ago and the support he receives from a niece and her sons who live locally. Today Willy said he's hoping to see Dr. Gao. He's said he's feeling ok, taking things day by day. His family members have been checking in with him by phone.
--- NOTE | 2019-09-28 16:24 | PDOC.CMPRO ---
- If Service Date Differs Date of service: 09/28/19 Time of Service: 16:24 Care Management Progress Note S/O: Dawit was sitting up in his chair when CM met with him. He was pleasant and engaged in conversation. Dawit and CM discussed the 'new normal' we may have to adjust to after the Covid 19 Pandemic. He stated that he misses sports, especially. CM signed Dawit up for the Portal, at his request. Dawit also asked about [facility], which CM had provided info for this weekend. CM will continue to follow. A:Dawit is a 74 year old male admitted after a fall at home. He was found to have MSSA bacteremia and PNA, present on admission P: Dawit remains inpatient at this time. It appears that he will require 6 weeks of IV antibiotics. If his regimen remains the same (Ancef 3 times a day) he will likely need to remain at [facility] in SB1 status. He continues to have positive blood cultures, including one drawn yesterday, so final plan is not clear. Dawit is willing to consider a SNF placement if needed. CM will continue to support and assess patient and discharge planning needs.
[2019-09-28] MEDS: Docusate Sodium 100 MG CAP PO (20:02)
[2019-09-28] MEDS: Potassium Chloride 20 MEQ TABCR PO (20:02)
[2019-09-29] MEDS: Normal Saline Flush 10 ML SYR IVP ×2 (01:12→17:07)
[2019-09-29] MEDS: ceFAZolin 2 GM/50 ML BAG IVPB ×3 (01:12→17:07)
[2019-09-29 04:13] VITALS: BP 157/71; PULSE 77; RESP 18; TEMP 36.4; O2SAT 94
[2019-09-29] MEDS: Levothyroxine 25 MCG TAB PO (05:21)
--- NOTE | 2019-09-29 07:00 | DI.NM_ITS ---
History: Persistent MSSA bacteremia. Priors: No exams were available for comparison Examination: Dose: 13 mCi Tc-99m Ceretec Images: 1 and 3 hours after blood draw. Findings: There is symmetric uptake of the radiopharmaceutical. No focal area of suspicious intense uptake is s een. A portion of the left lobe of the liver overlies the spine on the anterior images. Scoliosis i s noted in the lower lumbar spine. Impression: No evidence of abnormal labeling to suggest infection..
[2019-09-29 07:11] LABS: Anion Gap 1.1 mmol/L (3-11); BUN 15 mg/dL (7-18); CO2 33.9 mmol/L (21.0-32.0); CREATININE 1.02 mg/dL (0.70-1.30); Calcium 8.6 mg/dL (8.5-10.1); Chloride 104 mmol/L (98-107); Glucose 105 mg/dL (74-106); Potassium 4.1 mmol/L (3.5-5.1); Sodium 139 mmol/L (136-145)
[2019-09-29 07:40] VITALS: BP 164/75; PULSE 79; RESP 18; TEMP 37.1; O2SAT 95
[2019-09-29] MEDS: Magnesium Gluconate 500 MG TAB PO (07:42)
[2019-09-29] MEDS: Pantoprazole 20 MG TABCR PO (07:42)
[2019-09-29] MEDS: Tamsulosin 0.4 MG CAPCR 0.8 MG PO (07:42)
[2019-09-29] MEDS: Docusate Sodium 100 MG CAP PO ×2 (07:42→20:25)
[2019-09-29] MEDS: Acetaminophen 500 MG TAB 1000 MG PO ×2 (07:42→17:06)
[2019-09-29] MEDS: amLODIPine 5 MG TAB 10 MG PO (07:42)
[2019-09-29] MEDS: Finasteride 5 MG TAB PO (07:43)
[2019-09-29] MEDS: Potassium Chloride 20 MEQ TABCR PO (07:44)
[2019-09-29] MEDS: Lidocaine 5% Patch 1 PATCH TP (07:54)
--- NOTE | 2019-09-29 12:07 | W.PM.PROGNOT ---
Date of Service Date of service: 09/29/19 Time of Service: 12:07 Assessment and Plan Assessment and plan (1) MSSA bacteremia: Status: Acute Assessment and plan: After his initial 8 sets of cultures 6 of them were positive for MSSA. His latest cultures from 12/29/2019 showed no growth after 24 hours. We will proceed with PICC line for 6 weeks of Ancef 2 g IV every 8 hours. Plan to transition from acute inpatient to swing bed status starting tomorrow. (2) Lumbar discitis: Status: Suspected Assessment and plan: As above. Check WBC scan to see if this confirms findings on his MRI. Plan for repeat MRI in 4 to 6 weeks. (3) Transaminitis: Status: Acute Assessment and plan: Presumed cause of his transaminitis is due to rhabdomyolysis and sepsis. Acute hepatitis profile is pending. We will repeat his liver profile later this week to ensure that it continues to resolve. (4) Ambulatory dysfunction: Status: Acute Assessment and plan: Patient is doing well with physical therapy. He is walking with a front wheel walker. PT recommends discharge to either SNF or admit to our swing bed status for continued PT (5) Urinary retention: Status: Acute Assessment and plan: Continues to require post void straight catheterization to remove high residuals. Patient is on tamsulosin 0.8 mg daily along with Proscar 5 mg daily. Patient may end up needing a Hansen catheter. I doubt that his urinary retention is secondary to his discitis as he has no perineal anesthesia and no leg weakness. (6) BPH (benign prostatic hyperplasia): Status: Chronic Assessment and plan: Continue tamsulosin and Proscar. Further evaluation and management per urology. Qualifiers: Lower urinary tract symptom presence: symptoms present Lower urinary tract symptom detail: urinary retention Qualified Code(s): N40.1 - Benign prostatic hyperplasia with lower urinary tract symptoms; R33.8 - Other retention of urine (7) Constipation: Status: Acute Assessment and plan: Continue stool softeners and as needed use of laxatives. Qualifiers: Constipation type: unspecified constipation type Qualified Code(s): K59.00 - Constipation, unspecified (8) DVT prophylaxis: Status: Acute Assessment and plan: TEDs/SCDs. Heparin OR'ed due to thrombocytopenia which has now since resolved (lowest platelet count was 95,000 but now up to 139,000) (9) Discharge planning issues: Status: Acute Assessment and plan: DNR/DNI Proceed with PICC line today then discharged to swing bed status tomorrow. Subjective Subjective Interval history since last seen: Blood cultures from September 28, 2019 finally came back negative. We will proceed with placement of PICC line. He will need 6 weeks of antibiotics from today. End date will be November 10, 2019. PICC line will be placed today and then the patient will be entered into swing bed status starting tomorrow. Blood pressures remain elevated despite addition of amlodipine. He says that at home he takes nothing for his BP. For now I will just monitor this unless it gets really high and does not come down. With respect to his constipation, he is now moving his bowels. As for his urinary retention, he is still requiring intermittent straight catheterizations. Exam Narrative Exam Narrative: Alert and oriented person place time circumstance sitting up in a chair eating his lunch. Lungs are clear to auscultation. Heart is regular rate and rhythm without murmur rub or gallop. Abdomen with normal bowel sounds soft some mild suprapubic tenderness due to a full bladder. Extremities without peripheral cyanosis or edema. Spine is nontender to palpation. Objective Objective Clinical Data: Abnormal lab results 09/29/19 Range/Units 06:20 Carbon Dioxide 33.9 H (21.0-32.0) mmol/L Anion Gap 1.1 L (3-11) mmol/L Vital Signs Temperature 37.1 C 09/29/19 07:40 Temperature Source Tympanic 09/29/19 07:40 Pulse 79 09/29/19 07:40 Pulse Rhythm Regular 09/27/19 09:54 Respiratory Rate 18 09/29/19 07:40 Respiratory Effort Non-Labored 09/29/19 07:47 Respiratory Depth Normal 09/29/19 07:47 Respiratory Pattern Normal 09/29/19 07:47 Blood Pressure 164/75 H 09/29/19 07:40 Blood Pressure Position Sitting 09/21/19 20:33 Pulse Oximetry 95 09/29/19 07:40 Oxygen Delivery Method Room Air 09/29/19 07:40 Oxygen Flow Rate 0 09/29/19 07:40 Pain Level 1 09/29/19 07:42 Comment 09/23/19 03:30 Intake & Output 09/28/19 09/29/19 09/29/19 23:59 11:59 23:59 Intake Total 690 / 1290 260 / 260 Output Total 1350 / 3149 2202 / 2202 Balance -660 / -1859 -1941 / -194 Weight 73.7 kg Intake: IV 60 / 160 60 / 60 Oral 630 / 1130 200 / 200 Output: Urine 1350 / 3149 1452 / 1452 Post Void Residual 750 / 750 Other: Urine Color Yellow Yellow Urine Appearance Clear Clear Comment taken out 750 mls of urine Stool Occult Blood Negative Stool Size Moderate Small Stool Characteristics Soft Formed Formed Hard Brown Laboratory Results WBC 8.34 k/cumm (4.4-10.8) 09/28/19 07:05 RBC 4.05 m/cumm (4.50-6.00) L 09/28/19 07:05 Hgb 12.6 g/dL (13.5-17.5) L 09/28/19 07:05 Hct 36.0 % (40.0-50.0) L 09/28/19 07:05 MCV 88.9 fL (80-95) 09/28/19 07:05 MCH 31.1 pg (27.0-33.0) 09/28/19 07:05 MCHC 35.0 g/dL (32.0-36.0) 09/28/19 07:05 RDW 13.0 % (11.8-14.1) 09/28/19 07:05 Plt Count 276 x1000/uL (130-400) 09/28/19 07:05 MPV 8.2 fL (8.0-11.0) 09/28/19 07:05 Immature Gran % 0.0 % 09/28/19 07:05 Neutrophils % 62.0 09/28/19 07:05 Band Neutrophils % 2.0 % 09/28/19 07:05 Lymphocytes % 21.0 09/28/19 07:05 Atypical Lymphs % 2 09/28/19 07:05 Monocytes % 10.0 09/28/19 07:05 Eosinophils % 3.0 09/28/19 07:05 Basophils % 0.0 09/28/19 07:05 Metamyelocytes % 2.0 % 09/27/19 06:50 Myelocytes % 1.0 % 09/27/19 06:50 Absolute Neutrophils 5.34 k/cumm (1.2-6.7) 09/28/19 07:05 Absolute Lymphocytes 1.92 k/cumm (1.2-3.4) 09/28/19 07:05 Absolute Monocytes 0.83 k/cumm (0.11-0.7) H 09/28/19 07:05 Absolute Eosinophils 0.25 k/cumm (0.0-0.7) 09/28/19 07:05 Absolute Basophils 0.00 k/cumm (0.0-0.2) 09/28/19 07:05 Differential Comment Manual differential 09/28/19 07:05 RBC Morphology Normal 09/28/19 07:05 Polychromasia Present 09/24/19 05:30 PT 13.1 sec (9.3-11.0) H 09/22/19 06:45 INR 1.3 (0.9-1.1) H 09/22/19 06:45 D-Dimer 4475 ng/mlFEU (<500) H 09/22/19 06:45 VBG pH 7.43 (7.35-7.45) 09/21/19 20:40 VBG pCO2 42 mm/Hg (34-47) 09/21/19 20:40 VBG pO2 26 mm/Hg (28-44) L 09/21/19 20:40 VBG HCO3 28 mmol/L (22-28) 09/21/19 20:40 VBG Total CO2 26 mmol/L (22-29) 09/21/19 20:40 VBG O2 Saturation 49 % (70-80) L 09/21/19 20:40 VBG Base Excess 3.9 mmol/L (-3-3) H 09/21/19 20:40 Sodium 139 mmol/L (136-145) 09/29/19 06:20 Potassium 4.1 mmol/L (3.5-5.1) D 09/29/19 06:20 Chloride 104 mmol/L (98-107) 09/29/19 06:20 Carbon Dioxide 33.9 mmol/L (21.0-32.0) H 09/29/19 06:20 Anion Gap 1.1 mmol/L (3-11) L 09/29/19 06:20 BUN 15 mg/dL (7-18) 09/29/19 06:20 Creatinine 1.02 mg/dL (0.70-1.30) 09/29/19 06:20 Estimated GFR/1.73 m2 >= 60.00 (mL/min/1.73m2) 09/29/19 06:20 Glucose 105 mg/dL (74-106) 09/29/19 06:20 Lactate 1.1 mmol/L (0.6-1.4) 09/22/19 08:07 Calcium 8.6 mg/dL (8.5-10.1) 09/29/19 06:20 Magnesium 1.7 mg/dL (1.8-2.4) L 09/27/19 06:50 Ferritin 737 ng/mL (26-388) H 09/23/19 06:45 Total Bilirubin 1.8 mg/dL (0.2-1.0) H 09/28/19 07:05 Conjugated Bilirubin 1.53 mg/dL (0.00-0.20) H 09/23/19 06:45 AST 98 U/L (15-37) H 09/28/19 07:05 ALT 116 U/L (16-63) H 09/28/19 07:05 Alkaline Phosphatase 168 U/L (46-116) H 09/28/19 07:05 Lactate Dehydrogenase 431 U/L (85-227) H 09/21/19 20:40 Creatine Kinase 290 U/L (39-308) 09/27/19 06:50 Troponin I 0.08 ng/Ml (<0.06) H* 09/24/19 05:30 C-Reactive Protein 5.11 mg/dL (0.0-0.3) H 09/28/19 07:05 Total Protein 6.3 g/dL (6.4-8.2) L 09/28/19 07:05 Albumin 2.5 g/dL (3.4-5.0) L 09/28/19 07:05 Lipase 42 U/L (73-393) 09/21/19 20:40 Procalcitonin 0.9 ng/mL 09/26/19 06:10 TSH 0.67 uIU/mL (0.36-3.74) 09/22/19 06:45 Urine Color Analilia (Yellow) 09/21/19 21:45 Urine Clarity Clear (Clear) 09/21/19 21:45 Urine pH 7.5 (5-8) 09/21/19 21:45 Ur Specific [place] 1.020 (1.005-1.025) 09/21/19 21:45 Urine Protein >=300 mg/dL (Negative) H 09/21/19 21:45 Urine Ketones 40 mg/dL (Negative) H 09/21/19 21:45 Urine Blood Large (Negative) H 09/21/19 21:45 Urine Nitrite Negative (Negative) 09/21/19 21:45 Urine Bilirubin Negative (Negative) 09/21/19 21:45 Urine Urobilinogen 0.2 EU/dL (Up TO 0.2) 09/21/19 21:45 Ur Leukocyte Esterase Negative (Negative) 09/21/19 21:45 Urine RBC 3-5 HPF (0-2) H 09/21/19 21:45 Urine WBC Negative HPF (0-5) 09/21/19 21:45 Ur Epithelial Cells Negative HPF (Negative) 09/21/19 21:45 Urine Crystals Negative HPF (Negative) 09/21/19 21:45 Urine Bacteria Rare HPF (Negative) 09/21/19 21:45 Urine Casts 3-5 hyaline LPF (Negative) 09/21/19 21:45 Urine Mucus Trace (Negative) 09/21/19 21:45 Ur Culture Indicated? C&s done as ordered 09/21/19 21:45 Urine Glucose Negative mg/dL (Negative) 09/21/19 21:45 Vancomycin Trough 17.7 ug/mL (10.0-20.0) 09/24/19 13:02 COVID-19 PCR Negative (Negative) 09/21/19 20:50 Nasopharyn COVID-19 PCR Not Applicable 09/21/19 20:50 Hepatitis A IgM Ab Negative (Negative) 09/21/19 23:55 Hep Bs Antigen Negative (Negative) 09/21/19 23:55 Hep B Core Total Ab Negative (Negative) 09/21/19 23:55 Hepatitis C Antibody Negative (Negative) 09/21/19 23:55 Ref Test Perform Site [facility] hospital lab 09/21/19 20:50
--- NOTE | 2019-09-29 13:57 | PTTR_ITS ---
Date of service: 09/29/19 Time of Service: 13:57 PT Notes Visit Reasons: Pneumonia Inpatient Physical Therapy Treatment Note Date: 09/29/2019 Subjective: Willy continues to express concern in regards to urination. He however this afternoon was able to pee. He declined PM session due to testing taking place. He reported frustration with having to wait for the testing to occur. He is happy with his level of improvement in both his distance and strength. Objective: General Observation: IV access in right UE. R-sided torticollis (acquired?). Genu varum. Mental Status: Alert and oriented as to person, place, time and purpose Pain: Mild pain in the neck area Bed Mobility/Transfers: Sit to stand supervision using BUE for support, minimal cueing required Stand to sit supervision using BUE for support, minimal cueing required Bed to chair supervision using BUE for support, minimal cueing required Chair to bed supervision using BUE for support, minimal cueing required Gait: Session 1??Dawit was able to tolerate 720 feet using front wheeled walker with full weight bearing requiring only standby assist with no episode of posterior swaying or lack of posterior balance awareness. Chayo increasing. Step length and height increasing. Step through gait pattern. Base of support now wider. No SOB observed. THERA EX: Session 1??Dawit tolerated sit to stand activity from edge of mat with arms across chest x10 without any loss of balance. Patient continued activity progr ession from standing up from mat with arms across chest to stepping 3 times sideways to the right x2 and then to the left x 2 followed by sitting back down without L OB. Patient also tolerated step ups using 4 inch steps while holding onto bilateral rails with a 4 pound ankle weights on both sides times 15 reps without any undue difficulty or shortness of breath. Patient also managed to perform standing hip abduction x 15 on the right LE and x15 on the left LE with 4 pound ankle weights without undue difficulty. Pursed lip breathing x5 with heel raises done after each exercises Assessment: Patient continues to demonstrate functional improvements with increased independence with sit to stand and no loss of balance posteriorly, by increased control of center of gravity during dynamic activities, and by increasing distance covered during level surface ambulation without any loss of balance. Patient also is able to tolerate exercise as noted above. He will continue to benefit from skilled services in order to achieve modified independence with the use of a single-point cane for all level surface ambulation in anticipation of return to home when medically cleared. PLAN: Continue with PT POC as initially established DISCHARGE RECOMMENDATIONS: SB 1 versus SNF placement. TREATMENT CODE/TIME: Session 1??21379 x1 [id number] 30 minutes 9:55 AM. Session 2 attempted x2 due to further testing patient refused.
--- NOTE | 2019-09-29 15:26 | PGE_ITS ---
Date of Service Date of service: 09/29/19 Time of Service: 14:27 Assessment and Plan Assessment and plan (1) Urinary retention: Status: Acute Assessment and plan: His voiding function is gradually returning it will still be interesting to see what his nuclear scan shows. Subjective Subjective Interval history since last seen: The patient tells me he was able to move his bowels today and has urinated on his own for the first time. He was able to sense when he needed to void. His total voided volume was about 250 cc. He believes that he will be able to void even more if and when he is able to stand up to urinate. He is due to return to nuclear medicine for completion of his labeled white blood cell scan. Exam Narrative Exam Narrative: He is in no current distress. He is cooperative. His vital signs are documented elsewhere He is awake and alert Objective Objective Clinical Data: Abnormal lab results 09/29/19 Range/Units 06:20 Carbon Dioxide 33.9 H (21.0-32.0) mmol/L Anion Gap 1.1 L (3-11) mmol/L Vital Signs Temperature 37.1 C 09/29/19 07:40 Temperature Source Tympanic 09/29/19 07:40 Pulse 79 09/29/19 07:40 Pulse Rhythm Regular 09/27/19 09:54 Respiratory Rate 18 09/29/19 07:40 Respiratory Effort Non-Labored 09/29/19 07:47 Respiratory Depth Normal 09/29/19 07:47 Respiratory Pattern Normal 09/29/19 07:47 Blood Pressure 164/75 H 09/29/19 07:40 Blood Pressure Position Sitting 09/21/19 20:33 Pulse Oximetry 95 09/29/19 07:40 Oxygen Delivery Method Room Air 09/29/19 07:40 Oxygen Flow Rate 0 09/29/19 07:40 Pain Level 1 09/29/19 07:42 Comment 09/23/19 03:30 Intake & Output 09/28/19 09/29/19 09/29/19 23:59 11:59 23:59 Intake Total 690 / 1290 260 / 380 120 / 380 Output Total 1350 / 3149 2202 / 2202 Balance -660 / -1859 -1942 / -1822 120 / -1822 Weight 73.7 kg Intake: IV 60 / 160 60 / 60 Oral 630 / 1130 200 / 320 120 / 320 Output: Urine 1350 / 3149 1452 / 1452 Post Void Residual 750 / 750 Other: Urine Color Yellow Yellow Urine Appearance Clear Clear Comment taken out 750 mls of urine Stool Occult Blood Negative Stool Size Moderate Small Stool Characteristics Soft Formed Formed Hard Brown Laboratory Results WBC 8.34 k/cumm (4.4-10.8) 09/28/19 07:05 RBC 4.05 m/cumm (4.50-6.00) L 09/28/19 07:05 Hgb 12.6 g/dL (13.5-17.5) L 09/28/19 07:05 Hct 36.0 % (40.0-50.0) L 09/28/19 07:05 MCV 88.9 fL (80-95) 09/28/19 07:05 MCH 31.1 pg (27.0-33.0) 09/28/19 07:05 MCHC 35.0 g/dL (32.0-36.0) 09/28/19 07:05 RDW 13.0 % (11.8-14.1) 09/28/19 07:05 Plt Count 276 x1000/uL (130-400) 09/28/19 07:05 MPV 8.2 fL (8.0-11.0) 09/28/19 07:05 Immature Gran % 0.0 % 09/28/19 07:05 Neutrophils % 62.0 09/28/19 07:05 Band Neutrophils % 2.0 % 09/28/19 07:05 Lymphocytes % 21.0 09/28/19 07:05 Atypical Lymphs % 2 09/28/19 07:05 Monocytes % 10.0 09/28/19 07:05 Eosinophils % 3.0 09/28/19 07:05 Basophils % 0.0 09/28/19 07:05 Metamyelocytes % 2.0 % 09/27/19 06:50 Myelocytes % 1.0 % 09/27/19 06:50 Absolute Neutrophils 5.34 k/cumm (1.2-6.7) 09/28/19 07:05 Absolute Lymphocytes 1.92 k/cumm (1.2-3.4) 09/28/19 07:05 Absolute Monocytes 0.83 k/cumm (0.11-0.7) H 09/28/19 07:05 Absolute Eosinophils 0.25 k/cumm (0.0-0.7) 09/28/19 07:05 Absolute Basophils 0.00 k/cumm (0.0-0.2) 09/28/19 07:05 Differential Comment Manual differential 09/28/19 07:05 RBC Morphology Normal 09/28/19 07:05 Polychromasia Present 09/24/19 05:30 PT 13.1 sec (9.3-11.0) H 09/22/19 06:45 INR 1.3 (0.9-1.1) H 09/22/19 06:45 D-Dimer 4475 ng/mlFEU (<500) H 09/22/19 06:45 VBG pH 7.43 (7.35-7.45) 09/21/19 20:40 VBG pCO2 42 mm/Hg (34-47) 09/21/19 20:40 VBG pO2 26 mm/Hg (28-44) L 09/21/19 20:40 VBG HCO3 28 mmol/L (22-28) 09/21/19 20:40 VBG Total CO2 26 mmol/L (22-29) 09/21/19 20:40 VBG O2 Saturation 49 % (70-80) L 09/21/19 20:40 VBG Base Excess 3.9 mmol/L (-3-3) H 09/21/19 20:40 Sodium 139 mmol/L (136-145) 09/29/19 06:20 Potassium 4.1 mmol/L (3.5-5.1) D 09/29/19 06:20 Chloride 104 mmol/L (98-107) 09/29/19 06:20 Carbon Dioxide 33.9 mmol/L (21.0-32.0) H 09/29/19 06:20 Anion Gap 1.1 mmol/L (3-11) L 09/29/19 06:20 BUN 15 mg/dL (7-18) 09/29/19 06:20 Creatinine 1.02 mg/dL (0.70-1.30) 09/29/19 06:20 Estimated GFR/1.73 m2 >= 60.00 (mL/min/1.73m2) 09/29/19 06:20 Glucose 105 mg/dL (74-106) 09/29/19 06:20 Lactate 1.1 mmol/L (0.6-1.4) 09/22/19 08:07 Calcium 8.6 mg/dL (8.5-10.1) 09/29/19 06:20 Magnesium 1.7 mg/dL (1.8-2.4) L 09/27/19 06:50 Ferritin 737 ng/mL (26-388) H 09/23/19 06:45 Total Bilirubin 1.8 mg/dL (0.2-1.0) H 09/28/19 07:05 Conjugated Bilirubin 1.53 mg/dL (0.00-0.20) H 09/23/19 06:45 AST 98 U/L (15-37) H 09/28/19 07:05 ALT 116 U/L (16-63) H 09/28/19 07:05 Alkaline Phosphatase 168 U/L (46-116) H 09/28/19 07:05 Lactate Dehydrogenase 431 U/L (85-227) H 09/21/19 20:40 Creatine Kinase 290 U/L (39-308) 09/27/19 06:50 Troponin I 0.08 ng/Ml (<0.06) H* 09/24/19 05:30 C-Reactive Protein 5.11 mg/dL (0.0-0.3) H 09/28/19 07:05 Total Protein 6.3 g/dL (6.4-8.2) L 09/28/19 07:05 Albumin 2.5 g/dL (3.4-5.0) L 09/28/19 07:05 Lipase 42 U/L (73-393) 09/21/19 20:40 Procalcitonin 0.9 ng/mL 09/26/19 06:10 TSH 0.67 uIU/mL (0.36-3.74) 09/22/19 06:45 Urine Color Analilia (Yellow) 09/21/19 21:45 Urine Clarity Clear (Clear) 09/21/19 21:45 Urine pH 7.5 (5-8) 09/21/19 21:45 Ur Specific [place] 1.020 (1.005-1.025) 09/21/19 21:45 Urine Protein >=300 mg/dL (Negative) H 09/21/19 21:45 Urine Ketones 40 mg/dL (Negative) H 09/21/19 21:45 Urine Blood Large (Negative) H 09/21/19 21:45 Urine Nitrite Negative (Negative) 09/21/19 21:45 Urine Bilirubin Negative (Negative) 09/21/19 21:45 Urine Urobilinogen 0.2 EU/dL (Up TO 0.2) 09/21/19 21:45 Ur Leukocyte Esterase Negative (Negative) 09/21/19 21:45 Urine RBC 3-5 HPF (0-2) H 09/21/19 21:45 Urine WBC Negative HPF (0-5) 09/21/19 21:45 Ur Epithelial Cells Negative HPF (Negative) 09/21/19 21:45 Urine Crystals Negative HPF (Negative) 09/21/19 21:45 Urine Bacteria Rare HPF (Negative) 09/21/19 21:45 Urine Casts 3-5 hyaline LPF (Negative) 09/21/19 21:45 Urine Mucus Trace (Negative) 09/21/19 21:45 Ur Culture Indicated? C&s done as ordered 09/21/19 21:45 Urine Glucose Negative mg/dL (Negative) 09/21/19 21:45 Vancomycin Trough 17.7 ug/mL (10.0-20.0) 09/24/19 13:02 COVID-19 PCR Negative (Negative) 09/21/19 20:50 Nasopharyn COVID-19 PCR Not Applicable 09/21/19 20:50 Hepatitis A IgM Ab Negative (Negative) 09/21/19 23:55 Hep Bs Antigen Negative (Negative) 09/21/19 23:55 Hep B Core Total Ab Negative (Negative) 09/21/19 23:55 Hepatitis C Antibody Negative (Negative) 09/21/19 23:55 Ref Test Perform Site [facility] hospital lab 09/21/19 20:50
--- NOTE | 2019-09-29 16:18 | PDOC.CMPRO ---
- If Service Date Differs Date of service: 09/29/19 Time of Service: 16:18 Care Management Progress Note S/O: Dawit was sitting up in his chair when CM met with him. CM discussed his plan of care for this admission, as he is requiring 6 weeks of IV abx, Q8H. He stated that he is ok with this plan, as he has been through this before, in 2013 while in [place]. He stated that he would like his niece to bring in his computer once he is settled, which CM offered to help coordinate when ready. CM discussed Swing bed status with Dawit to help his understanding of the process. CM assisted him with obtaining music on a tablet in his room. CM will also bring him fill in puzzles, as requested. Anticipate he will transition to SWB 1 status tomorrow, and he may need an insurance prior auth on day of admission. CM will continue to follow. A:Dawit is a 74 year old male admitted after a fall at home. He was found to have MSSA bacteremia and PNA, present on admission P: Dawit remains inpatient at this time. It appears that he will require 6 weeks of IV antibiotics. If his regimen remains the same (Ancef 3 times a day) he will likely need to remain at [facility] in SB1 status. Dawit is willing to consider a SNF placement if needed. CM will continue to support and assess patient and discharge planning needs.
[2019-09-29 19:39] VITALS: BP 128/60; PULSE 89; RESP 18; TEMP 36.6; O2SAT 96
[2019-09-29] MEDS: Normal Saline Flush 10 ML SYR 20 ML IVP (20:25)
[2019-09-30 00:05] VITALS: BP 156/68; PULSE 87; RESP 18; TEMP 36.8; O2SAT 96
[2019-09-30] MEDS: Acetaminophen 500 MG TAB 1000 MG PO ×2 (00:10→08:16)
[2019-09-30] MEDS: Normal Saline Flush 10 ML SYR IVP ×2 (02:07→08:18)
[2019-09-30] MEDS: ceFAZolin 2 GM/50 ML BAG IVPB ×2 (02:07→10:33)
[2019-09-30] MEDS: Bisacodyl 10 MG SUPP PR (04:21)
[2019-09-30 05:10] VITALS: BP 146/74; PULSE 94; RESP 18; TEMP 36.7; O2SAT 98
[2019-09-30] MEDS: Levothyroxine 25 MCG TAB PO (06:15)
[2019-09-30] MEDS: Lidocaine 2% Jelly 11 ML SYR UR (06:49)
[2019-09-30 07:24] LABS: Abs Immature Grans 0.57 k/cumm (0.0-0.09); HCT 34.2 % (40.0-50.0); HGB 11.4 g/dL (13.5-17.5); Mean Corp. HGB Concentration 33.3 g/dL (32.0-36.0); Mean Corpuscular Hemoglobin 30.9 pg (27.0-33.0); Mean Corpuscular Volume 92.7 fL (80-95); Mean Platelet Volume 8.4 fL (8.0-11.0); Platelet Count 435 x1000/uL (130-400); RBC 3.69 m/cumm (4.50-6.00); RBC Distribution Width 13.9 % (11.8-14.1); White Blood Cell Count 11.19 k/cumm (4.4-10.8)
[2019-09-30 07:27] VITALS: BP 158/80; PULSE 71; RESP 18; TEMP 36.6; O2SAT 98
[2019-09-30 07:36] LABS: ALT 68 U/L (16-63); AST 56 U/L (15-37); Albumin 2.7 g/dL (3.4-5.0); Alkaline Phosphatase 211 U/L (46-116); Anion Gap 3.4 mmol/L (3-11); BUN 14 mg/dL (7-18); Bilirubin, Total 1.4 mg/dL (0.2-1.0); CO2 32.6 mmol/L (21.0-32.0); CREATININE 0.94 mg/dL (0.70-1.30); Calcium 9.1 mg/dL (8.5-10.1); Chloride 103 mmol/L (98-107); Glucose 105 mg/dL (74-106); Potassium 4.5 mmol/L (3.5-5.1); Sodium 139 mmol/L (136-145); Total Protein 6.9 g/dL (6.4-8.2)
[2019-09-30 07:44] LABS: Absolute Basophil Count 0.11 k/cumm (0.0-0.2); Absolute Eosinophil Count 0.22 k/cumm (0.0-0.7); Absolute Neutrophil Count 7.61 k/cumm (1.2-6.7)
[2019-09-30 07:45] LABS: Diff Comment Manual Differential; RBC Morphology Normal
[2019-09-30] MEDS: Docusate Sodium 100 MG CAP PO (08:15)
[2019-09-30] MEDS: Pantoprazole 20 MG TABCR PO (08:16)
[2019-09-30] MEDS: Tamsulosin 0.4 MG CAPCR 0.8 MG PO (08:16)
[2019-09-30] MEDS: amLODIPine 5 MG TAB 10 MG PO (08:16)
[2019-09-30] MEDS: Finasteride 5 MG TAB PO (08:16)
[2019-09-30] MEDS: Potassium Chloride 20 MEQ TABCR PO (08:17)
[2019-09-30] MEDS: Lidocaine 5% Patch 1 PATCH TP (08:17)
[2019-09-30] MEDS: Magnesium Gluconate 500 MG TAB PO (08:17)
[2019-09-30] MEDS: Normal Saline Flush 10 ML SYR 20 ML IVP (08:18)
--- NOTE | 2019-09-30 09:55 | PT.INTREAT ---
Date of service: 09/30/19 Time of Service: 09:56 PT Notes Visit Reasons: Pneumonia Inpatient Physical Therapy Treatment Note Date: 09/30/2019 Subjective: Willy notes that he woke up in a mood today. Unsure why. Has a call into his psychiatrist due to his mental status. Is awaiting a call back from her. Feeling stronger each day. Reports that it looks like he will be staying for another 6 weeks for antibiotics via Swing Bed. Objective: General Observation: IV access in right UE. R-sided torticollis (acquired?). Genu varum. Mental Status: Alert and oriented as to person, place, time and purpose Pain: Mild pain in the neck area Bed Mobility/Transfers: Sit to stand supervision using BUE for support, minimal cueing required Stand to sit supervision using BUE for support, minimal cueing required Bed to chair supervision using BUE for support, minimal cueing required Chair to bed supervision using BUE for support, minimal cueing required Gait: Session 1??Dawit was able to tolerate 720 feet using front wheeled walker with full weight bearing requiring only standby assist with no episode of posterior swaying or lack of posterior balance awareness. Chayo increasing. Step length and height increasing. Step through gait pattern. Base of support now wider. No SOB observed. THER EX: Session 1??Dawit tolerated sit to stand activity from edge of mat with arms across chest x10 without any loss of balance. Patient continued activity progression from standing up from mat with arms across chest to stepping 3 times sideways to the right x2 and then to the left x 2 followed by sitting back down without LOB. Patient also tolerated step ups using 4 inch steps while holding onto bilateral rails with a 4 pound ankle weights on both sides times 20 reps alternately without any undue difficulty or shortness of breath. Patient also managed to perform standing hip abduction x 15 on the right LE and x15 on the left LE with 4 pound ankle weights without undue difficulty. Also incorporated SSH with 4 lb ankle weight 15 reps R/L. Seated knee extension with 4lb ankle weight 15 reps each side. Followed by standing HR 15x. Continued instruction in pursed lip breathing. Assessment: Patient continues to demonstrate functional improvements with increased independence with sit to stand and no loss of balance posteriorly, by increased control of center of gravity during dynamic activities, and by increasing distance covered during level surface ambulation without any loss of balance. Patient also is able to tolerate exercise as noted above. He will continue to benefit from skilled services in order to achieve modified independence with the use of a single-point cane for all level surface ambulation in anticipation of return to home when medically cleared. PLAN: Continue with PT POC as initially established. Patient probable to transfer swing bed status in PM. Will await new orders at this time. DISCHARGE RECOMMENDATIONS: SB 1 versus SNF placement. TREATMENT CODE/TIME: Session 1??59626 x1 [id number] 35 minutes 9:15 AM.
[2019-09-30 11:30] VITALS: BP 125/72; PULSE 82; RESP 17; TEMP 37; O2SAT 97
[2019-09-30 12:15] LABS: Hepatitis A Antibody IgM Negative (Negative); Hepatitis B Core Antibody Negative (Negative); Hepatitis B surface Ag Negative (Negative); Hepatitis C Ab w Rflx HCV PCR Negative (Negative)
--- NOTE | 2019-09-30 12:47 | W.PM.DS.N ---
Date of service: 09/30/19 Time of Service: 12:48 DS: Diagnosis Discharge Diagnosis (1) Sepsis: Status: Acute Asessment and Plan: Patient presented to the hospital initially in a septic picture. There was some confusion initially as to the source of his sepsis as the CT scan suggestive some mild bibasilar infiltrates. However the patient never had any hypoxemia did not requiring supplemental oxygen therefore pneumonia was ruled out. He did have an encephalopathy with confusion. MRI scan of the brain showed no acute EDITOR SOUND event. Blood cultures came back positive for MSSA bacteremia. Patient presented with acute rhabdomyolysis with CPK greater than 10,000 which resolved with IV fluid hydration. He never had an acute kidney injury despite the severity of his rhabdomyolysis. His acute confusion improved with treatment of his sepsis. He was initially treated with Levaquin and vancomycin but what his blood cultures came back positive for MSSA his antibiotics were switched to Ancef 2 g IV every 8 hours. He had evidence of a troponin leak and a transaminitis. Echocardiogram showed no regional wall motion abnormalities and no evidence for valvular vegetations. The troponin leak was felt to be due to the sepsis and likewise the transaminitis was also felt to be secondary to sepsis. He has transaminitis gradually improved over several days. CT scan of his chest abdomen pelvis was performed on admission and there is no structural abnormalities of his biliary tract or his liver or pancreas.Subsequent work-up for source of his MSSA bacteremia included MRI scanning of his spine which showed an area of suggestive postcontrast enhancement at L2-3 and L3-L4 levels. However WBC scan which was obtained several days later did not show a focal area of uptake. It is felt that he had been on treatment long enough but the white cell scan no longer was demonstrative of his infection. Irregardless the patient will receive 6 weeks of Ancef 2 g IV every 8 hours dating from his first negative blood culture which was September 28, 2019. His end date of antibiotics will be November 09, 2019. Subsequent MRI scan of his lumbar spine is recommended at the end of his treatment to ensure resolution of his infection. Upon completion of his antibiotics repeat blood culture should also be obtained to ensure resolution of his infection. (2) MSSA bacteremia: Status: Acute Asessment and Plan: See above (3) Pneumonia: Status: Ruled-out Asessment and Plan: Patient had no clinical evidence for pneumonia. He had no tachypnea and no hypoxemia. The bibasilar infiltrates on CT scanning were felt to be atelectasis probably from his prolonged period of being down on the floor after his fall. Patient never required a supplemental oxygen and had no cough or sputum production. Therefore the diagnosis of pneumonia was only suspected and has since been ruled out. (4) Elevated troponin: Status: Acute Asessment and Plan: Patient presented with a troponin elevation of 0.23 and it peaked at 0.459 September 22, 2019 but did decline to near normal levels at 0.08 on September 24, 2019. This was felt to be type II myocardial ischemia due to sepsis and not due to any transmural infarct. His echocardiogram furthermore showed no regional wall abnormalities and he had a normal left ventricular and right ventricular function. Further risk stratification could be obtained including a stress MPI at a later date. However the patient is exhibited no anginal symptoms throughout his hospital stay. (5) Lumbar discitis: Status: Acute Asessment and Plan: Lumbar discitis is strongly suspected based on his MRI scan as well as his previous history of lumbar discitis in 2013. Repeat MRI scan will be obtained once he is completed his 6 weeks of Ancef. (6) Urinary retention: Status: Acute Asessment and Plan: Patient continues to have problems with urinary retention. He has known BPH and takes Proscar and tamsulosin. Urology consult was obtained with Dr. Gao who did not recommend replacing his Hansen catheter. Patient will continue to receive intermittent straight catheterization for high urinary residuals. We have raised the threshold of his urinary residual to 500 mL post void residual in order to minimize the frequency of his straight catheterizations. He continues to receive tamsulosin and Proscar. (7) BPH (benign prostatic hyperplasia): Status: Chronic Asessment and Plan: As above (8) Transaminitis: Status: Resolved Asessment and Plan: As noted above patient had a significant transaminitis associated with sepsis which is now resolved. (9) Rhabdomyolysis: Status: Resolved Asessment and Plan: As noted above patient had a significant rhabdomyolysis on admission due to sepsis and his fall at home. Rhabdomyolysis resolved with aggressive IV fluid hydration. Patient never had acute kidney injury from the rhabdomyolysis. (10) PSVT (paroxysmal supraventricular tachycardia): Status: Acute Asessment and Plan: Patient had transient PSVT which did not require any long-term treatment. This was associated with his episode of sepsis. (11) Essential hypertension: Status: Acute Asessment and Plan: Post recovery of his sepsis patient had problems with elevated blood pressures that were persistent and required initiation of amlodipine. Echocardiogram did not demonstrate any hypertensive heart changes. (12) Constipation: Status: Acute Asessment and Plan: Patient had transient constipation that resolved with use of stool softeners and laxatives. (13) Ambulatory dysfunction: Status: Acute Asessment and Plan: Patient initially presented with severe generalized weakness and amatory dysfunction which improved with physical therapy and treatment of his sepsis. Once his rhabdomyolysis resolved patient did very well with physical therapy and was ambulating with a front wheel walker. They recommended that he transition into a prison facility or swing bed status for continued therapy. Discharge Plan Disposition Patient Disposition: [facility] SWING BED LEVEL 1 Condition: Stable Discharge Details Chief Complaint: Fever Clinical Impression: Sepsis, Bilateral pneumonia Reason For Visit: MSSA sepsis, Admit Date/Time: 09/21/19 23:15 Admit Provider: Byron Watters Attending Provider: Byron Watters Primary Care Provider: Kai Peter ED Provider: Nikolay Gibson Hospital Course Hospital Course: 74-year-old male with a history of hypothyroidism and BPH presented to the emergency department September 21, 2019 after sustaining a fall at home and complaining of lower back pain and shortness of breath. Upon evaluation emergency department he underwent a CTA of his chest abdomen pelvis that showed mild bibasilar consolidations superimposed on chronic reticular pulmonary changes suggestive of a pneumonia. No PE was seen. CT of the abdomen showed no aneurysm of the liver is unremarkable except for hepatic cyst. Blood cultures were obtained and he was found to have MSSA sepsis. He was also found to have rhabdomyolysis with a CK of greater than 10,000. He also had a troponin leak with a troponin I level of 0.31 that with IV fluid hydration came down overnight to 0.08. Over the next few days with IV fluid hydration his CK levels came down to normal with the last level being 290 on September 27, 2019. Despite the significant rhabdomyolysis he never sustained an acute kidney injury. His creatinine was 0.93 on admission remain within normal limits throughout his hospital course. Upon admission he had a transaminitis with elevated with a total bilirubin of 4.5 and AST of 139 ALT 107 and elevated LDH of 431. Over time his transaminitis improved at the time of discharge his AST was down to 56 and ALT was down to 68 with an alkaline phosphatase of 211. At the time of discharge his creatinine kinase was down to 290. On admission he had an elevated procalcitonin of 3.9 at the time of discharge his procalcitonin was down to 0.9. Because the complaint of lower back pain in the setting of a fall he underwent imaging initial imaging included thoracic and lumbar CT scan which showed no thoracic or lumbar spine fracture he has marketed DJD changes. He also went for MRI of the cervical and thoracic and lumbar spine. MRI of the cervical spine showed multiple level degenerative changes but no evidence for discitis or abscess. MRI of the thoracic spine was severely limited due to motion artifact but again no findings to suggest discitis or abscess. However the MRI of the lumbar spine obtained September 24, 2019 demonstrated suboptimal examination due to motion artifact with no focal fluid collection to suggest an epidural abscess but multilevel DJD w/ spinal canal and neural foraminal stenosis and an area of post contrast enhancement of L2-3 and L3-4 disc suggestive of possible infection versus degenerative changes. Brain MRI was also performed d/t sepsis and encephalopathy. This demonstrated cerebral atrophy but no acute process. From 09/20 to 09/24 the patient had 6/8 sets of blood cultures that were positive for Methicillin sensitive Staphylococcus aureus. Echocardiogram performed 09/22 did not show any vegetations. LVEF 55-60%, no regional wall motion abnormalities. No significant valvulopathy was seen. He was treated intially w/ Levaquin and Vancomycin but when his cultures came back for MSSA he was changed to Ancef [address] Lowery, the initial hospitalist who assumed his care, arranged a telephone consultation w/ ID and spine surgery at [facility] and had the spine surgeon evaluate the lumbar MRI. Per her conversation w/ me, the spine surgeon was not convinced that this is a vertebral osteomyelitis or discitis. However, ID recommended 6 wks of Ancef 2 gm IV q8hr from his first negative blood culture. His repeat blood cultures finally came back no growth on 09/27 and a PICC line was placed for assisted antibiotic use beginning 10/09. Subsequent to his admission records were obtained from [facility] in [place], [place] and it was found that he had been treated for a similar MSSA vertebral osteomyelitis in 10/09/2013. The patient will now be entering into the swing bed program at [facility] for completion of his 6 week course of Ancef 2 gm IV q8h. End date for his antibiotics is 11/09/2019. Home Meds and New Rx's Prescriptions: No Action (DME) vacuum erection device system kit See Dose Instructions .ROUTE .MEDSUPPLY Qty: 1 RF: 0 simvastatin 10 MG tablet 10 mg PO DAILY RF: 0 levothyroxine [Synthroid] 25 MCG tablet 25 mcg PO DAILY RF: 0 tamsulosin 0.4 MG capsule 0.4 mg PO BID RF: 0 finasteride [Proscar] 5 MG tablet 5 mg PO DAILY RF: 0 Discharge Instructions Instructions: Bacteremia (DC) Activity:: Activity as Tolerated Equipment/Supplies:: No Equipment Needed Diet:: Normal Diet Discharge Orders Discharge Orders: Discharge Order (Routine); Ordered 09/30/19 Ordered By: Ralph Brito Discharge Data Discharge Date/Time-TO BE ENTERED AT DEPARTURE: 09/30/19 14:23 DS: Summary Status at Discharge Functional status at discharge: uses cane/walker Overall status at discharge: patient is progressing back to baseline Mental Status: mental status grossly normal Speech and Movement: speech and movement normal Mood: congruent mood Affect: normal affect Time Spent with Patient providing and/or coordinating discharge services: Greater than 30 minutes Exam Narrative Exam Narrative: Alert and oriented person place time circumstance sitting up in a chair eating Lungs are clear to auscultation. Heart is regular rate and rhythm without murmur rub or gallop. Abdomen with normal bowel sounds soft some mild suprapubic tenderness due to a full bladder. Extremities without peripheral cyanosis or edema. Spine is nontender to palpation. Psych Mental Status: mental status grossly normal Speech and Movement: speech and movement normal Mood: congruent mood Affect: normal affect DS: Data Vitals/I&O Vitals and I&O: Vital Signs Temperature 36.6 C 09/30/19 07:27 Temperature Source Temporal Artery Scan 09/30/19 07:27 Pulse 71 09/30/19 07:27 Pulse Rhythm Regular 09/30/19 08:20 Respiratory Rate 18 09/30/19 07:27 Respiratory Effort Non-Labored 09/30/19 08:20 Respiratory Depth Normal 09/30/19 08:20 Respiratory Pattern Normal 09/30/19 08:20 Blood Pressure 158/80 H 09/30/19 07:27 Blood Pressure Position Sitting 09/21/19 20:33 Pulse Oximetry 98 09/30/19 07:27 Oxygen Delivery Method Room Air 09/30/19 07:27 Oxygen Flow Rate 0 09/30/19 07:27 Pain Level 1 09/30/19 08:16 Comment 09/23/19 03:30 Intake & Output 09/29/19 09/30/19 09/30/19 23:59 11:59 23:59 Intake Total 390 / 700 290 / 290 Output Total 450 / 2652 1275 / 1275 Balance -60 / -1952 -985 / -985 Weight 74.1 kg Intake: IV 70 / 180 50 / 50 Oral 320 / 520 240 / 240 Output: Urine 450 / 1902 1275 / 1275 Other: Urine Color Yellow Yellow Urine Appearance Clear Clear Urine Odor Normal Comment scanned as pt stated feeling bloated Stool Size Small Stool Characteristics Formed Voiding Methods Toilet Toilet Urinal Data Completed and Pending Labs on day of discharge: Labs from last 24 hours 09/30/19 09/30/19 06:40 06:40 WBC 11.19 H RBC 3.69 L Hgb 11.4 L Hct 34.2 L MCV 92.7 MCH 30.9 MCHC 33.3 RDW 13.9 Plt Count 435 H MPV 8.4 Immature Gran % See Differential Neutrophils % 68.0 Lymphocytes % 17.0 Monocytes % 8.0 Eosinophils % 2.0 Basophils % 1.0 Metamyelocytes % 2.0 Myelocytes % 2.0 Absolute Neutrophils 7.61 H Absolute Lymphocytes 1.90 Absolute Monocytes 0.90 H Absolute Eosinophils 0.22 Absolute Basophils 0.11 Differential Comment Manual differential RBC Morphology Normal Sodium 139 Potassium 4.5 Chloride 103 Carbon Dioxide 32.6 H Anion Gap 3.4 BUN 14 Creatinine 0.94 Estimated GFR/1.73 m2 >= 60.00 Glucose 105 Calcium 9.1 Total Bilirubin 1.4 H AST 56 H ALT 68 H Alkaline Phosphatase 211 H Total Protein 6.9 Albumin 2.7 L Preliminary micro results at discharge 09/28/19 06:55 Blood Culture - Preliminary Blood NO GROWTH 48 HOURS 09/28/19 07:05 Blood Culture - Preliminary Blood NO GROWTH 48 HOURS 09/25/19 11:05 Blood Culture - Preliminary Blood NO GROWTH 96 HOURS PFSH Social History Smoking/Tobacco Use Status: Former Tobacco Use Alcohol Intake: never Drug use: Never Substance use type: does not use Do you feel safe at home: Yes Do you feel safe in your relationship?: Yes
--- NOTE | 2019-09-30 14:32 | PDOC.CMPRO ---
- If Service Date Differs Date of service: 09/30/19 Time of Service: 14:32 Care Management Progress Note S/O: Dawit will transition to SB1 today for IV abx his end date per provider is 11/10/2019. A:Dawit is a 74 year old male admitted after a fall at home. He was found to have MSSA bacteremia and PNA, present on admission P: Dawit to transition to SB1 today for 6 weeks of IV abx. It appears that he will require 6 weeks of IV antibiotics. Dawit is willing to consider a SNF placement if needed. He should continue with PT and OT while inpatient. CM will continue to support and assess patient and discharge planning needs.
--- NOTE | 2019-10-14 09:54 | PT.INTREAT ---
Date of service: 10/14/19 Time of Service: 09:54 PT Notes Visit Reasons: MSSA sepsis, Inpatient Physical Therapy Treatment Note Date: 10/14/2019 PRECAUTIONS: Contact precautions for C. difficile infection. Fall. Standard. Activity as tolerated. SUBJECTIVE: Dawit understands why he again would need to ring for help every time he gets up to make sure that he is safe. He is agreeable to going back down to supervision for all mobility ADL performance. He continues to complain about how uncomfortable his lower tummy area is. he looks forward to going out today for a walk. OBJECTIVE General Observation: IV access in right UE. R-sided torticollis (acquired?). L genu varum. Pain patch on posterior neck Mental Status: Alert and oriented as to person, place, time Pain: abdomnal area about 3-4/10 BED MOBILITY/TRANSFERS Rolling L/R: Independent Supine-sit: Independent Sit-supine: Independent Sit-stand: Supervision Stand-sit: Supervision Bed-Chair: Supervision Chair-bed: Supervision GAIT Assistive Device: FWW Weight bearing: FWB Assist: SBA, verbal cues were given to safely manage uneven path Distance: 800 feet x 2 [address] pathway outside hospital building with uneven surfaces Deviation: Chayo improved. No LOB. No posterior sway. No comments about his shoes. Requested to sit down as he was getting tired and was getting a little uncomfortable in his lower abdominal area. THERA EX: With 4 pound weights on bilateral ankles, patient tolerated step ups with one hand holding onto a stair rail x20. He also tolerated sidesteps with 2 hands holding onto a stair rail using 4 inch step to 15 times the right and 15 times to the left. Assessment:Dawit has been downgraded back to supervision assist for all in room ambulation. He remains in need of supervision for hallway ambulation using front wheeled walker at this time. He is agreeable to progressing exercise intensity this week with increase in repetition for room exercises to 15 ?2 sets and with therapy exercises using ankle weights. We will coordinate review of goals with care management in order to facilitate return home once antibiotic treatment is completed. Plan of Care/Treatment Plan: 1x/day, 3 days/week x 2 weeks. Continue with Physical Therapy intervention for strengthening, bed mobility, transfers, gait, stairs, balance training, use of assistive device. DISCHARGE RECOMMENDATIONS: Patient will benefit from home health PT services in order to progress mobility level using least restrictive assistive ambulatory device, assess home safety, identify additional equipment needs, and establish a functional maintenance program that will increase ability of patient to remain at home. TREATMENT CODE/TIME: 19657 x 46 minutes beginning at 9:54 AM.
--- NOTE | 2019-10-16 11:00 | PT.INDS ---
Date of service: 10/16/19 Time of Service: 11:00 PT Notes Visit Reasons: MSSA sepsis, Inpatient Physical Therapy Discharge Summary Dates: 10/16/2019 Dates of Service: 09/30/2019 through 10/14/2019 This is a clinical summary of care provided on the duration of dates listed above. No charge was made in the completion of this documentation. Referring Doctor: Ralph Brito PT Orders: PT CONSULT: Swing Bed Evaluation Precautions: Fall. Standard. Activity as tolerated. Patient Profile/Admitting Diagnosis: Patient is a 74-year-old male who presented to the ED on 09/21/2019 via EMS with chief complaints of generalized weakness that started 2 days prior to admission that has resulted to a fall on his way to his bathroom in his apartment and a left abdominal discomfort. Patient is diagnosed with pneumonia with MSSA bacteremia, acute rhabdomyolysis, increased opponent, back pain with question of vertebral osteomyelitis or discitis, neck pain, transaminitis, and ambulatory dysfunction. Patient tested negative for COVID-19 on as of 09/14/2019 at 20 3:16 PM. Orders were sent in for physical therapy to address impairments and strength, balance, and activity tolerance. PMHX: Medical History (Updated 09/22/19 @ 10:34 by Shi Alonzo MD) Erectile dysfunction (Inactive) Surgical History (Updated 09/22/19 @ 10:32 by Shi Alonzo MD) S/P left inguinal hernia repair (Acute) Social History/Home Situation: Patient lives alone on the second floor of an apartment building with no steps to enter. He uses an elevator to reach the entrance of his apartment. He is independent with all activities of daily living not requiring any assistive ambulatory device nor adaptive equipment. He still drives. His passed 3 years ago and he has been seeing a counselor to manage his grief. Equipment Owned/DME: Patient states that his used a walker and a cane which can both be available to him if needed. Subjective: NT Objective: General Observation: NT Mental Status: NT Pain: NT ROM: Neck: Rotation to L about 15 degrees. Rotation to R about 45 degrees. Lateral flexion to L abut 10 degrees. Lateral flexion to R about 30 degrees. Right Upper Extremity: Shoulder Flexion WFL. Shoulder abduction WFL. Elbow flexion WFL. Wrist flexion WFL. Opening and closing of hand WFL. Left Upper Extremity: Shoulder Flexion WFL. Shoulder abduction WFL. Elbow flexion WFL. Wrist flexion WFL. Opening and closing of hand WFL. Right Lower Extremity: Hip flexion WFL. Hip abduction WFL. Knee flexion WFL. Ankle dorsiflexion WFL. Ankle plantarflexion WFL. Left Lower Extremity: Hip flexion WFL. Hip abduction WFL. Knee flexion WFL. Ankle dorsiflexion WFL. Ankle plantarflexion WFL. Strength: Right Upper Extremity: Shoulder flexors 4/5. Shoulder abductors 4/5. Elbow flexors 4/5. Elbow extensors 4/5. Plastic Production Machine Setter strong. Left Upper Extremity: Shoulder flexors 4/5. Shoulder abductors 4/5. Elbow flexors 4/5. Elbow extensors 4/5. Plastic Production Machine Setter strong. Right Lower Extremity: Hip flexors 4/5. Hip abductors 4/5. Knee flexors 4/5. Knee extensors 4/5. Ankle dorsiflexors 4/5. Ankle plantarflexors 4/5. Left Lower Extremity:Hip flexors 4/5. Hip abductors 4/5. Knee flexors 4/5. Knee extensors 4/5. Ankle dorsiflexors 4-/5. Ankle plantarflexors 4/5. Sensation: Intact as to pain and pressure on bilateral lower extremities. Bed Mobility/Transfers: Rolling I Supine to sit I with HOB to 30 degrees and using BUE for support Sit to supine I with HOB to 30 degrees and using BUE for support Sit to stand Supervision using BUE for support, minimal cueing required Stand to sit Supervision using BUE for support, minimal cueing required Bed to chair Supervision using BUE for support, minimal cueing required Chair to bed Supervision using BUE for support, minimal cueing required Gait: As of 10/14/2019 patient was able to tolerate 700 feet of normal level surface ambulation on a paved pathway outside hospital building using front wheeled walker with contact-guard assist of 2 with wheelchair follow for safety with verbal cues provided to manage uneven path. Decreased gwen. Balance: Static Sitting: Normal Dynamic Sitting: Normal Static Standing: Good Dynamic Standing: Good Assessment: Dawit got converted back to acute level of care on 10/15/2019 due to diagnosis of small bowel obstruction and is being discharged from skilled services under swing bed level 1 as of today. Patient is a 74-year-old male who presented to the ED on 09/21/2019 via EMS with chief complaints of generalized weakness that started 2 days prior to admission that has resulted to a fall on his way to his bathroom in his apartment and a left abdominal discomfort. Patient is diagnosed with pneumonia with MSSA bacteremia, acute rhabdomyolysis, increased opponent, back pain with question of vertebral osteomyelitis or discitis, neck pain, transaminitis, and ambulatory dysfunction. Patient tested negative for COVID-19 on as of 09/14/2019 at 20 3:16 PM. Orders were sent in for physical therapy to address impairments with strength, balance, and activity tolerance due to Functional mobility decline. Generalized muscle weakness. Neck pain Patient continues to present with clinical signs and symptoms consistent with current/admitting diagnoses that have resulted to mobility limitations, gait instability, generalized weakness, and impairment of motor control as demonstrated by the following impairment level findings: 1. Decreased strength to neck, B UE, B LE major muscle groups 2. Impaired dynamic standing balance 3. Impaired activity tolerance 4. Limitation of joint range of motion in cervical area Impairments are contributing to the following functional limitations: 1. Inability to safely ambulate without assistive device and physical assistance 2. Increase completion time for mobility ADL performance 3. Increased fall risk Goals: Goals X1 week 1. Supine-Sit independent MET 2. Sit-Supine independent MET 3. Sit-Stand independent MET 4. Stand-Sit independent NOT MET 5. Bed-Chair independent NOT MET 6. Chair-Bed independent NOT MET 7. Independent gait on level surface with use of least restrictive device for at least 800 feet without report of pain nor dyspnea NOT MET 8. Independent stair negotiation while holding onto bilateral rails for at least 10 steps without report of pain nor dyspnea NOT MET 9. Independent with home exercise program NOT MET 10. Good static and dynamic standing balance/tolerance NOT MET DISCHARGE RECOMMENDATIONS: Patient will be reevaluated under acute care level 1 per recommendation of hospitalist. Patient will benefit from home health PT services in order to progress mobility level using least restrictive assistive ambulatory device, assess home safety, identify additional equipment needs, and establish a functional maintenance program that will increase ability of patient to remain at home. TREATMENT CODE/TIME: SD. Thank you very much for this referral. Ariane Poe PT, DPT, CLT [facility] Inpatient PT at [place], [place]
== END 2019-09-30 14:23 | disposition swing bed (61) | DRG 872 ==
LOC: ER 22:48 → MS 09-22 10:15
PROVIDERS: Internal Medicine; Admitting Provider General Practice; Emergency Provider Emergency Medicine; PCP Nurse Practitioner Family; Visit Provider Internal Medicine
DX: A41.01 Sepsis due to Methicillin susceptible Staphylococcus aureus (principal); G93.40 Encephalopathy, unspecified; I24.8 Other forms of acute ischemic heart disease; I47.1 Supraventricular tachycardia; M46.46 Discitis, unspecified, lumbar region; T79.6XXA Traumatic ischemia of muscle, initial encounter; W18.30XA Fall on same level, unspecified, initial encounter; R41.0 Disorientation, unspecified; I10 Essential (primary) hypertension; E87.6 Hypokalemia; K59.00 Constipation, unspecified; D69.6 Thrombocytopenia, unspecified; K40.90 Unilateral inguinal hernia, without obstruction or gangrene, not specified as recurrent; M54.2 Cervicalgia; R74.0 Nonspecific elevation of levels of transaminase and lactic acid dehydrogenase [LDH]; R26.2 Difficulty in walking, not elsewhere classified; Z66 Do not resuscitate; Z71.3 Dietary counseling and surveillance; Z88.0 Allergy status to penicillin; N40.1 Benign prostatic hyperplasia with lower urinary tract symptoms; R33.8 Other retention of urine; E03.9 Hypothyroidism, unspecified; E78.5 Hyperlipidemia, unspecified
CPT/HCPCS: 36410; 36415; 36569; 71275; 72158; 74177; 80048; 80053; 80076; 82550; 82805; 83690; 84145; 85027; 86704; 86709; 86803; 87040; 87077; 87340; 87449; 93005; 93306; 96361; 96365; 97110; 97162; 97530; 99221; 99222; 99223; 99231; 99232; 99233; 99239; 99253; 99254; 99285; 99291; U0003; 70551; 72125; 72156; 72157; 78806; 80202; 81003; 81015; 82247; 82248; 82728; 83605; 83615; 83735; 84443; 84450; 84460; 84484; 85025; 85379; 85610; 86140; 87086; 87186; 93010; 93970; J0690; J1644; J1941; J1956; J2060; J2270; J3370; J3490

== ENCOUNTER → 2019-09-22 08:53 | Outpatient (BNVA) | payer MEDICARE, SELFPAY | PROVIDERS: PCP Nurse Practitioner Family; Referring Provider Nurse Practitioner Family; Visit Provider Internal Medicine Cardiovascular Disease | DX: R69 Illness, unspecified (principal) ==

== ENCOUNTER 2019-09-30 13:09 | Inpatient (IN) | payer MEDICARE, SELFPAY ==
--- NOTE | 2019-09-30 13:15 | W.PM.HP.N ---
Date of service: 09/30/19 Time of Service: 13:15 Assessment and Plan Assessment and plan (1) MSSA bacteremia: Status: Acute Assessment and plan: continue Ancef 2 mg IV q8hr for 6 weeks from last first negative blood cultures (09/27) i.e. through 11/09/2019 (2) Lumbar discitis: Status: Acute Assessment and plan: check repeat MRI of LS spine in 4-6 weeks (i.e. 10/25-11/08) (3) Urinary retention: Status: Acute Assessment and plan: Per Dr. Gao's recommendation, do not replace rodríguez catheter and try to minimize straight cath; allow his bladder to fill up and cath when he feels uncomfortable. I have set parameters for post void residuals of 500 mL or more. I think that volumes less than this should be tolerable (4) BPH (benign prostatic hyperplasia): Status: Chronic Assessment and plan: continue Flomax and Proscar Qualifiers: Lower urinary tract symptom detail: urinary retention Lower urinary tract symptom presence: symptoms present Qualified Code(s): N40.1 - Benign prostatic hyperplasia with lower urinary tract symptoms; R33.8 - Other retention of urine (5) Essential hypertension: Status: Acute Assessment and plan: continue amlodipine; if BP remains elevated then consider addition of Coreg (6) Ambulatory dysfunction: Status: Acute Assessment and plan: continue P.T. and add O.T. services (7) DVT prophylaxis: Status: Acute Assessment and plan: patient is now more ambulatory and should not need lovenox therapy; he has been walking w/ FWW and getting in/out of bed on his own to his chair (8) Discharge planning issues: Status: Acute Assessment and plan: home once completion of his Ancef treatment History of Present Illness History of Present Illness Chief Complaint: MSSA sepsis, back pain Narrative: Patient presented to the hospital initially in a septic picture. There was some confusion initially as to the source of his sepsis as the CT scan suggestive some mild bibasilar infiltrates. However the patient never had any hypoxemia did not requiring supplemental oxygen therefore pneumonia was ruled out. He did have an encephalopathy with confusion. MRI scan of the brain showed no acute INFORMATION SERVICES VICE PRESIDENT event. Blood cultures came back positive for MSSA bacteremia. Patient presented with acute rhabdomyolysis with CPK greater than 10,000 which resolved with IV fluid hydration. He never had an acute kidney injury despite the severity of his rhabdomyolysis. His acute confusion improved with treatment of his sepsis. He was initially treated with Levaquin and vancomycin but what his blood cultures came back positive for MSSA his antibiotics were switched to Ancef 2 g IV every 8 hours. He had evidence of a troponin leak and a transaminitis. Echocardiogram showed no regional wall motion abnormalities and no evidence for valvular vegetations. The troponin leak was felt to be due to the sepsis and likewise the transaminitis was also felt to be secondary to sepsis. He has transaminitis gradually improved over several days. CT scan of his chest abdomen pelvis was performed on admission and there is no structural abnormalities of his biliary tract or his liver or pancreas.Subsequent work-up for source of his MSSA bacteremia included MRI scanning of his spine which showed an area of suggestive postcontrast enhancement at L2-3 and L3-L4 levels. However WBC scan which was obtained several days later did not show a focal area of uptake. It is felt that he had been on treatment long enough but the white cell scan no longer was demonstrative of his infection. Irregardless the patient will receive 6 weeks of Ancef 2 g IV every 8 hours dating from his first negative blood culture which was September 28, 2019. His end date of antibiotics will be November 09, 2019. Subsequent MRI scan of his lumbar spine is recommended at the end of his treatment to ensure resolution of his infection. Upon completion of his antibiotics repeat blood culture should also be obtained to ensure resolution of his infection. Review of Systems All systems reviewed & are unremarkable except as noted in HPI and below PFSH Medical History BPH (benign prostatic hyperplasia) (Chronic) Conductive hearing loss (Acute) Epidural abscess (Acute ~10/09/13) Erectile dysfunction (Inactive) History of Clostridioides difficile colitis (Acute ~10/2013) History of small bowel obstruction (Acute 07/12/15) MSSA (methicillin susceptible Staphylococcus aureus) septicemia (Acute 10/09/13) in setting of ruputured appendicitis and found to have disciitis epidural abscess, [facility], [place], [place]; Dr. Casey Mixon, infectious disease Osteomyelitis of vertebra of thoracolumbar region (Acute ~10/09/13) treated w/ 6 weeks of Ancef; seen by Dr. Casey Mixon, infectious disease, [place], [place]; completed treatment 11/20/2013; complicated by C. difficile colitis Panic anxiety syndrome (Acute) Sensorineural hearing loss (Acute) Surgical History H/O sinus surgery (Acute) History of bilateral cataract extraction (Acute) History of cholecystectomy (Chronic ~1998) History of tonsillectomy and adenoidectomy (Acute) S/P laparoscopic appendectomy (Acute 10/09/13) S/P left inguinal hernia repair (Acute) Social History Smoking/Tobacco Use Status: Former Tobacco Use Alcohol Intake: never Drug use: Never Substance use type: does not use Do you feel safe at home: Yes Do you feel safe in your relationship?: Yes Meds Home Medications and Allergies Home Medications Medication Instructions Recorded Confirmed Type finasteride [Proscar] 5 mg PO DAILY 07/25/17 09/30/19 History levothyroxine [Synthroid] 25 mcg PO DAILY 07/25/17 09/30/19 History simvastatin 10 mg PO DAILY 07/25/17 09/30/19 History tamsulosin 0.4 mg PO BID 07/25/17 09/30/19 History vacuum erection device system #1 each 03/28/18 01/30/19 Rx Allergies Allergy/AdvReac Type Severity Reaction Status Date / Time Penicillins Allergy Mild Skin Rash Unverified 03/20/18 14:02 aspirin AdvReac Mild GI Bleeding Unverified 03/20/18 14:02 Exam Narrative Exam Narrative: Alert and oriented person place time circumstance sitting up in a chair eating Lungs are clear to auscultation. Heart is regular rate and rhythm without murmur rub or gallop. Abdomen with normal bowel sounds soft some mild suprapubic tenderness due to a full bladder. Extremities without peripheral cyanosis or edema. Spine is nontender to palpation. COVID-19 Screening Traveled to [place] from one of the affected countries or regions?: NO
--- NOTE | 2019-09-30 14:17 | PT.INIE ---
Date of service: 09/30/19 Time of Service: 14:17 PT Notes Visit Reasons: SWINGBED Physical Therapy Inpatient Initial Evaluation Date: 09/30/2019 Referring Doctor: Ralph Brito PT Orders: PT CONSULT: Swing Bed Evaluation Precautions: Fall. Standard. Activity as tolerated. Patient Profile/Admitting Diagnosis: Patient is a 74-year-old male who presented to the ED on 09/21/2019 via EMS with chief complaints of generalized weakness that started 2 days prior to admission that has resulted to a fall on his way to his bathroom in his apartment and a left abdominal discomfort. Patient is diagnosed with pneumonia with MSSA bacteremia, acute rhabdomyolysis, increased opponent, back pain with question of vertebral osteomyelitis or discitis, neck pain, transaminitis, and ambulatory dysfunction. Patient tested negative for COVID-19 on as of 09/14/2019 at 20 3:16 PM. Orders were sent in for physical therapy to address impairments and strength, balance, and activity tolerance. PMHX: Medical History (Updated 09/22/19 @ 10:34 by Shi Alonzo MD) Erectile dysfunction (Inactive) Surgical History (Updated 09/22/19 @ 10:32 by Shi Alonzo MD) S/P left inguinal hernia repair (Acute) Social History/Home Situation: Patient lives alone on the second floor of an apartment building with no steps to enter. He uses an elevator to reach the entrance of his apartment. He is independent with all activities of daily living not requiring any assistive ambulatory device nor adaptive equipment. He still drives. His passed 3 years ago and he has been seeing a counselor to manage his grief. Equipment Owned/DME: Patient states that his used a walker and a cane which can both be available to him if needed. Subjective: Patient notes that he is feeling better about his situation. He just had a really good talk with the MD and is happy to be feeling better overall. He notes he feels better after completing PT and feels that the exercises are good for him. He questions a HEP for when he does go home. Objective: General Observation: Patient lying in bed. IV access in right UE. R-sided torticollis (acquired?). Genu varum. Mental Status: Alert and oriented as to person place and time Pain: 1-2/10 in the neck area especially with end range of neck motions ROM: Neck: Rotation to L about 15 degrees. Rotation to R about 45 degrees. Lateral flexion to L abut 10 degrees. Lateral flexion to R about 30 degrees. Right Upper Extremity: Shoulder Flexion WFL. Shoulder abduction WFL. Elbow flexion WFL. Wrist flexion WFL. Opening and closing of hand WFL. Left Upper Extremity: Shoulder Flexion WFL. Shoulder abduction WFL. Elbow flexion WFL. Wrist flexion WFL. Opening and closing of hand WFL. Right Lower Extremity: Hip flexion WFL. Hip abduction WFL. Knee flexion WFL. Ankle dorsiflexion WFL. Ankle plantarflexion WFL. Left Lower Extremity: Hip flexion WFL. Hip abduction WFL. Knee flexion WFL. Ankle dorsiflexion WFL. Ankle plantarflexion WFL. Strength: Right Upper Extremity: Shoulder flexors 4/5. Shoulder abductors 4/5. Elbow flexors 4/5. Elbow extensors 4/5. Fondant Machine Operator strong. Left Upper Extremity: Shoulder flexors 4/5. Shoulder abductors 4/5. Elbow flexors 4/5. Elbow extensors 4/5. Fondant Machine Operator strong. Right Lower Extremity: Hip flexors 4/5. Hip abductors 4/5. Knee flexors 4/5. Knee extensors 4/5. Ankle dorsiflexors 4-/5. Ankle plantarflexors 4-/5. Left Lower Extremity:Hip flexors 4/5. Hip abductors 4/5. Knee flexors 4/5. Knee extensors 4/5. Ankle dorsiflexors 4-/5. Ankle plantarflexors 4-/5. Sensation: Intact as to pain and pressure on bilateral lower extremities. Bed Mobility/Transfers: Rolling I Supine to sit I with HOB to 30 degrees and using BUE for support Sit to supine I with HOB to 30 degrees and using BUE for support Sit to stand Supervision using BUE for support, minimal cueing required Stand to sit Supervision using BUE for support, minimal cueing required Bed to chair Supervision using BUE for support, minimal cueing required Chair to bed Supervision using BUE for support, minimal cueing required Gait: Patient was able to tolerate level surface ambulation of 720 feet with SBA using front wheeled walker with full weightbearing. Good gwen. Improved stride length. Minimal cues needed. Balance: Static Sitting: Normal Dynamic Sitting: Normal Static Standing: Good Dynamic Standing: Good Special Tests: Mobility Limitations Standardized Measure [facility] AM-PAC 6 clicks Basic Mobility Inpatient Short Form: Raw Score: 21 CMS Score: 28.97% deficit Informed Consent/Education: Patient instructed in purpose of PT consult and continued plan of care via swing bed status. Assessment:. Patient is a 74-year-old male who presented to the ED on 09/21/2019 via EMS with chief complaints of generalized weakness that started 2 days prior to admission that has resulted to a fall on his way to his bathroom in his apartment and a left abdominal discomfort. Patient is diagnosed with pneumonia with MSSA bacteremia, acute rhabdomyolysis, increased opponent, back pain with question of vertebral osteomyelitis or discitis, neck pain, transaminitis, and ambulatory dysfunction. Patient tested negative for COVID-19 on as of 09/14/2019 at 20 3:16 PM. Orders were sent in for physical therapy to address impairments with strength, balance, and activity tolerance due to Functional mobility decline. Generalized muscle weakness. Neck pain Patient presents with clinical signs and symptoms consistent with current/admitting diagnoses that have resulted to mobility limitations, gait instability, generalized weakness, and impairment of motor control as demonstrated by the following impairment level findings: 1. Decreased strength to neck, B UE, B LE major muscle groups 2. Impaired dynamic standing balance 3. Impaired activity tolerance 4. Limitation of joint range of motion in cervical area Impairments are contributing to the following functional limitations: 1. Increased dependence with transfers 2. Inability to safely ambulate without assistive device and physical assistance 3. Increase completion time for mobility ADL performance 4. Increased fall risk Patient is assessed as a 88847 moderate complexity based on the following: History: 74-year-old male waiting for impairment level findings, functional limitations, and medical history as indicated above Examination: Demonstrable impairment in strength, balance, and range of motion with underlying impairments and functional limitations as documented above Presentation: Evolving Decision Makin moderate complexity Goals: Goals X1 week 1. Supine-Sit independent 2. Sit-Supine independent 3. Sit-Stand independent 4. Stand-Sit independent 5. Bed-Chair independent 6. Chair-Bed independent 7. Independent gait on level surface with use of least restrictive device for at least 800 feet without report of pain nor dyspnea 8. Independent stair negotiation while holding onto bilateral rails for at least 10 steps without report of pain nor dyspnea 9. Independent with home exercise program 10. Good static and dynamic standing balance/tolerance Plan of Care/Treatment Plan: 1-2x/day, 7 days/week x 1 week. Initiate Physical Therapy intervention for strengthening, bed mobility, transfers, gait, stairs, balance training, use of assistive device. PT Intervention: Session today consisted of initial physical therapy evaluation for swing bed status as well as strengthening exercises per flow sheet. DISCHARGE RECOMMENDATIONS: Patient will benefit from home health PT services in order to progress mobility level using least restrictive assistive ambulatory device, assess home safety, identify additional equipment needs, and establish a functional maintenance program that will increase ability of patient to remain at home. TREATMENT CODE/TIME: 48862 x 25 minutes, 06503 x 20 minutes beginning at 1:45 PM. Thank you very much for this referral. Jeanette Hatfield, MPT [facility] [place], [place]
[2019-09-30 15:40] VITALS: BP 121/75; PULSE 81; RESP 18; TEMP 36; O2SAT 97
[2019-09-30] MEDS: Acetaminophen 500 MG TAB 1000 MG PO ×2 (15:42→23:43)
--- NOTE | 2019-09-30 16:20 | PHA.REVIEW ---
Pharmacy Admission Review - Admission Clinical Review (Last Reviewed 09/30/19 @ 13:16 by Ralph Brito) Essential hypertension (Acute) Lumbar discitis (Acute) MSSA bacteremia (Acute) Urinary retention (Acute) Discharge planning issues (Acute) DVT prophylaxis (Acute) Ambulatory dysfunction (Acute) Penicillins Allergy (Mild, Unverified 03/20/18 14:02) Skin Rash aspirin Adverse Reaction (Mild, Unverified 03/20/18 14:02) GI Bleeding Height 5 ft 10.08 in Weight 74.1 kg - Renal Dosing Medications needing adjustments: Reviewed - Anticoagulation DVT Prohphylaxis: Reviewed (TEDs/SCDs -- was on heparin but dc'd due to thrombocytopenia) - Opiate Usage Evaluate Pain Scale/Pains Meds: N/A - DM Control Insulin Dosing: N/A - Heart Failure/ND EF%, MATY's, B-Blockers, Diuretics: Reviewed - BP Control BP Control: Blood Pressure 121/75 If elevated: Reviewed - Home Meds Home Med List reviewed: Reviewed - Comments Comments/Follow Ups: Will require a total of 6 weeks of IV antibiotics -- due to complete on November 09, 2019
[2019-09-30] MEDS: ceFAZolin 2 GM/50 ML BAG IVPB (18:28)
[2019-09-30] MEDS: Normal Saline Flush 10 ML SYR IVP (18:29)
[2019-09-30 19:20] VITALS: BP 124/61; PULSE 77; RESP 19; TEMP 37; O2SAT 97
[2019-09-30] MEDS: Docusate Sodium 100 MG CAP PO (19:46)
[2019-09-30] MEDS: Normal Saline Flush 10 ML SYR 20 ML IVP (19:46)
[2019-10-01 00:01] VITALS: BP 115/54; PULSE 78; RESP 18; TEMP 37; O2SAT 95
[2019-10-01] MEDS: Normal Saline Flush 10 ML SYR IVP (02:07)
[2019-10-01] MEDS: ceFAZolin 2 GM/50 ML BAG IVPB ×3 (02:07→17:29)
[2019-10-01] MEDS: Levothyroxine 25 MCG TAB PO (06:55)
[2019-10-01 07:21] VITALS: BP 172/66; PULSE 89; RESP 18; TEMP 37.4; O2SAT 94
[2019-10-01] MEDS: Tamsulosin 0.4 MG CAPCR 0.8 MG PO (07:56)
[2019-10-01] MEDS: amLODIPine 5 MG TAB 10 MG PO (07:57)
[2019-10-01] MEDS: Acetaminophen 500 MG TAB 1000 MG PO ×2 (07:57→17:29)
[2019-10-01] MEDS: Docusate Sodium 100 MG CAP PO ×2 (07:57→20:37)
[2019-10-01] MEDS: Potassium Chloride 20 MEQ TABCR PO (07:57)
[2019-10-01] MEDS: Finasteride 5 MG TAB PO (07:57)
[2019-10-01] MEDS: Magnesium Gluconate 500 MG TAB PO (07:58)
[2019-10-01] MEDS: Normal Saline Flush 10 ML SYR 20 ML IVP ×2 (07:58→20:37)
[2019-10-01] MEDS: Pantoprazole 20 MG TABCR PO (07:58)
--- NOTE | 2019-10-01 13:43 | PT.INTREAT ---
Date of service: 10/01/19 Time of Service: 13:43 PT Notes Visit Reasons: MSSA BACTEREMIA, LUMBAR DISCITIS Inpatient Physical Therapy Treatment Note Date: 10/01/2019 Subjective: Dawit verbalizes how frustrated he is with continued issues he has regarding his prostate situation. He did not sleep well last night. He voices that he is okay with staying here to complete his antibiotic regimen. He reports feeling a bit foggy and complains about discomfort on his lower tummy area that comes and goes. Objective: General Observation: IV access in right UE. R-sided torticollis (acquired?). L genu varum.. Mental Status: Alert and oriented as to person, place, time and purpose Pain: Recurrent lower abdomnal pain Bed Mobility/Transfers: Sit to stand modified modified independent using front wheeled walker Stand to sit modified modified independent using front wheeled walker Bed to chair modified modified independent using front wheeled walker Chair to bed modified modified independent using front wheeled walker GAIT: Patient tolerated 520 feet + 520 feet of level surface ambulation using front wheeled walker with full weight bearing and just standby assist of PT. Reciprocal swing through gait pattern. Chayo increased. Minimal cues given just for directions. STAIRS: Patient tolerated up-and-down twelve 4-inch steps and eight 6-inch steps while holding onto bilateral rails with [id number] pattern requiring only standby assist of PT. THERA EX: With 4 pound ankle weights on bilateral ankles, patient tolerated high marches x15, hip extension to right x 15 and hip extension to left x 15, hip abduction on the right x15 and hip abduction on left x15, partial knee bends x15, heel raises x15. Using 2 pound dumbbells patient also tolerated arm push forward x15, arm push ups x15, and elbow flexion x15. Intermittent pursed lip breathing done in between each exercises with good response. Assessment: Patient is made modified independent with a front wheeled walker for all mobility ADL performance inside his room, supervision in the hallways. Nurse Gautam and nurse supervisor airplane flight attendant Caren were both updated about mobility upgrade. Patient is agreeable and is happy with this milestone. PLAN: We will continue to skill patient with long-term goal of independent level surface ambulation and stair negotiation using no assistive device as per prior level of function. DISCHARGE RECOMMENDATIONS: Patient will benefit from home health PT services in order to progress mobility level using least restrictive assistive ambulatory device, assess home safety, identify additional equipment needs, and establish a functional maintenance program that will increase ability of patient to remain at home. TREATMENT CODE/TIME: Session 1??22350 x 15 minutes, 29905 x 30 minutes beginning at 10:28 AM. Session 2??[id number] 0 x 33 minutes beginning at 13:43 PM.
[2019-10-01 15:15] VITALS: BP 112/58; PULSE 84; RESP 19; TEMP 36; O2SAT 98
[2019-10-01 20:34] VITALS: BP 113/62; PULSE 89; RESP 19; TEMP 37.3; O2SAT 96
[2019-10-02] MEDS: Acetaminophen 500 MG TAB 1000 MG PO ×3 (01:22→17:23)
[2019-10-02] MEDS: ceFAZolin 2 GM/50 ML BAG IVPB ×3 (01:22→17:22)
[2019-10-02 03:30] VITALS: BP 142/61; PULSE 80; RESP 19; TEMP 37.3; O2SAT 96
[2019-10-02] MEDS: Levothyroxine 25 MCG TAB PO (05:49)
[2019-10-02 07:35] VITALS: BP 135/61; PULSE 101; RESP 18; TEMP 35.6; O2SAT 98
--- NOTE | 2019-10-02 07:59 | OTIE_ITS ---
Occupational Therapy Notes Inpatient Occupational Therapy SB1 Evaluation Date: 10/01/19 Referring Doctor:Ralph Brito MD OT Orders: Non-Urgent Precautions: Fall, Standard, DNR/DNI PATIENT PROFILE/ADMITTING DIAGNOSIS: Pt is a 74-year-old male who presented to the ER on 09/21/19 via EMS with chief complaints of generalized weakness that started 2 days prior to admission that has resulted to a fall on his way to his bathroom in his apartment and a left abdominal discomfort. He states that he stayed on the floor and continued to attempt to get up for hours which made him feel more weak and tired. Patient is admitted with dx of pneumonia with MSSA bacteremia, acute rhabdomyolysis, increased opponent, back pain with question of vertebral osteomyelitis or discitis, neck pain, transaminitis, and ambulatory dysfunction. He was recently transitioned to 1 rehabilitation status and consulted for Occupational Therapy for assessment of functional (I) in regards to his ADL/IADL routines. Past Medical History- Medical History (Updated 09/22/19 @ 10:34 by Shi Alonzo MD) Erectile dysfunction (Inactive) Surgical History (Updated 09/22/19 @ 10:32 by Shi Alonzo MD) S/P left inguinal hernia repair (Acute) Social History/Home Situation: Pt lives alone in an apartment in the [facility] building. He states that his recently and he came to [place] which he speaks very highly of. He notes that his apartment is of good size. He drives at baseline and reports that he is totally (I). He has a niece and nephew which he stays in close contact with and they (A) as needed. He has a tub shower with no grab bars and is interested in having a shower seat for safety. He has an elevator from the basement to his floor where he does laundry. He is (I) with meal prep and cooking at baseline. Equipment owned/DME: MARLEE Silva SUBJECTIVE: Pt was sitting in chair when OT arrived. He reports that he was recently transitioned to Swing bed 1 rehabilitation program. He states that he has and would like to be as (I) as possible. OBJECTIVE: General Observation: Pleasant, able to answer questions appropriately, IV not connected in (R) UE Mental Status: A&Ox4 Pain: no c/o pain ROM: RUE AROM WFL L UE AROM WFL STRENGTH: RUE 5/5 throughout LUE 5/5 throughout SENSATION: intact (B) UE FUNCTIONAL MOBILITY/ADLS: Transfers with FWW Sit-Stand (S) Stand-sit (S) BATHING NT as pt denies. He reports that nursing helps him with this but he believes he can perform this on his own. OT will continue to assess. DRESSING In seated position, pt denies performance of getting dressed in own clothes until next week when he has more clothes at the hospital. Dressing UE Denies Dressing LE Able to (I) don and doff (B) socks with increased performance time and min vc provided throughout. OT educates pt on adaptive equipment which he pleasantly refuses at this time. GROOMING Able to perform (I) teeth care in sitting position. Pt performs this (I) at home in standing. OT will continue to assess pt in the standing position as tolerated. TOILETING NT at todays session pt reports that he has been walking to the toilet with nursing. Denies any issues with getting on and off toilet. Able to (I) maintain jennifer area hygiene, will continue to assess pt for ability to (I) adjust clothing before and after toileting routine. EATING Sitting in chair (I) with opening and closing containers, no issues with swallowing and good use of utensils as needed. OT was able to assess only end of routine. BALANCE: Static sitting Normal Dynamic Sitting Normal Static Standing Normal Dynamic Standing Good SPECIAL TESTS: Daily Activity Limitations Standardized Measure [] [facility] AM -PAC ?6 clicks? Daily Activity Inpatient Short Form: Raw score: 21 INFORMED CONSENT/EDUCATION: Pt instructed in purpose of OT Consult and plan of care. ASSESSMENT: Patient is a 74-year-old male referred to occupational therapy services with diagnosis of pneumonia with MSSA bacteremia, acute rhabdomyolysis, increased opponent, back pain with question of vertebral osteomyelitis or discitis, neck pain, transaminitis, and ambulatory dysfunction. Patient presents with clinical signs and symptoms consistent with dx, as demonstrated by the following impairment level findings: Decreased functional activity tolerance, decreased performance of ADLS in the standing routine, decreased prolonged performance of ADLS required to complete his ADLs/IADLs (I). Impairments are contributing to the following functional limitations: Increased performance time in LE dressing, decreased standing tolerance at sink for grooming/bathing routines, decreased functional activity tolerance after prolonged activity throughout the day. AMPAC score 21 Patient is assessed as a Low 47423 complexity based on the following: History: See above Examination: See functional limitations as noted above Presentation: Evolving Decision Making: AMPAC score 21 GOALS Goals x1 week 1. Transfers (I) with LRD 2. Dressing (I) in seated position 3. Bathing (I) 4. Toileting (I) on toilet 5. Eating (I) 6. Grooming routine standing at sink (I) PLAN OF CARE/TREATMENT PLAN: 1x/day, 5 days/ week x 1week Initiate Occupational Therapy Services for bathing, dressing, grooming, toileting, eating, transfer training. DISCHARGE RECOMMENDATIONS Based on todays assessment and pts functional (I) in tolerance to ADL/IADL routines, OT recommends that pt return home when medically cleared per MD. OT recommends that pt have a shower seat to increase his (I) and safety in his bathing routine due to decreased standing tolerance and functional activity tolerance. TREATMENT TIME/MINUTES/CODES 49525, 63686, 40 minutes (11:10) Jasmyn Grewal OTR/[facility]
[2019-10-02] MEDS: Tamsulosin 0.4 MG CAPCR 0.8 MG PO (08:06)
[2019-10-02] MEDS: Finasteride 5 MG TAB PO (08:06)
[2019-10-02] MEDS: Docusate Sodium 100 MG CAP PO ×2 (08:07→20:54)
[2019-10-02] MEDS: Pantoprazole 20 MG TABCR PO (08:07)
[2019-10-02] MEDS: Potassium Chloride 20 MEQ TABCR PO (08:07)
[2019-10-02] MEDS: Normal Saline Flush 10 ML SYR 20 ML IVP ×2 (08:07→20:54)
[2019-10-02] MEDS: Magnesium Gluconate 500 MG TAB PO (08:07)
[2019-10-02] MEDS: amLODIPine 5 MG TAB 10 MG PO (08:07)
--- NOTE | 2019-10-02 11:28 | OT.INTREAT ---
Date of service: 10/02/19 Time of Service: 10:45 Occupational Therapy Notes Occupational Therapy Inpatient Treatment Note Date: 10/02/19 PRECAUTIONS: Fall, Standard, DNR/DNI SUBJECTIVE: Pt states that he is just not feeling the same today. He notes that his medication was changed which was discussed with RN. He mentions that he made some decisions and that now he is not happy with the decisions that he made. He does not elaborate on this more throughout session but it is bothersome to him. He is receptive and agreeable to participate in todays session. OBJECTIVE: PAIN:no c/o pain . FUNCTIONAL MOBILITY Sit-stand: (I) Stand-sit: (I) Bed-Chair: (I) Chair-bed: (I) BATHING: standing at sink with FWW Upper Body: (I) face, (B) UE Lower Body: (I) (B) LE to ankles with no LOB GROOMING: Standing at sink with FWW (I) with brushing teeth with ideal technique. Min vc for opening toothpaste but otherwise (I). PLAN: OT will resume OT services on Saturday and work with pt on dressing. Pt is in agreement with this plan and OT will plan to educate pt on energy conservation techniques. TREATMENT CODES/TIME: [id number], 20 minutes (10:45) Jasmyn Grewal OTR/[facility]
--- NOTE | 2019-10-02 13:04 | W.NUTRFU ---
Date of service: 10/02/19 Time of Service: 13:04 Nutritional Follow up NOTE: Willy continues on regular diet with adequate intake. Labs unremarkable. not at risk for nutritional decline at this time. will be availble prn. Time Spent in Nutritional Counseling and Treatment: 0 time spent face to face
--- NOTE | 2019-10-02 13:26 | PTTR_ITS ---
Date of service: 10/02/19 Time of Service: 13:26 PT Notes Visit Reasons: MSSA BACTEREMIA, LUMBAR DISCITIS Inpatient Physical Therapy Treatment Note Date: 10/02/2019 Subjective: Dawit expressed his concern about his medication being changed without him knowing first to his OT and then to this PT. OT Jasmyn relayed csaid concern to Nurse Gautam immediately. Dawit also complained about stiffness on both his knees at the beginning of the morning session tomorrow. Eh describes how he feels a bit off today. Objective: General Observation: IV access in right UE. R-sided torticollis (acquired?). L genu varum.. Mental Status: Alert and oriented as to person, place, time and purpose Pain: Recurrent lower abdomnal pain Bed Mobility/Transfers: Sit to stand modified modified independent using front wheeled walker Stand to sit modified modified independent using front wheeled walker Bed to chair modified modified independent using front wheeled walker Chair to bed modified modified independent using front wheeled walker GAIT: Patient tolerated 20 feet + 260 feet in the morning and 680 feet in the afternoon of level surface ambulation using front wheeled walker with full weight bearing and just supervision of PT. Reciprocal swing through gait pattern. Chayo increased. Minimal cues given just for directions. THERA EX: Initiation of education and training with safe and correct performance of room exercises done today. Room exercises consist of: Seated clamshell exercises x15 against red Thera-Band, seated hip flexion exercises x 15 against red Thera- Band, seated hip abduction exercises x15 against red Thera-Band, arm forward push x 15 with 2 pound dumbbells, arm push-ups x15 with 2 pound dumbbells, and elbow flexion x15 with 2 pound dumbbells. Instruction on pursed lip breathing for 3-5x after each exercise was also emphasized. Assessment: Patient continues to receive antibiotic treatment via PICC line in the right UE. Patient is made modified independent with a front wheeled walker for all mobility ADL performance inside his room, supervision in the hallways as of 10/01/2019. He continues to demonstrate steady gains in terms of strength, activity tolerance, and mobility ADL independence. PLAN: Decrease PT frequency to 1 time a day 7 days a week. Will work on facilitating independent hallway ambulation using front wheeled walker for the early part of this week and 100% mastery of room exercises. DISCHARGE RECOMMENDATIONS: Patient will benefit from home health PT services in order to progress mobility level using least restrictive assistive ambulatory device, assess home safety, identify additional equipment needs, and establish a functional maintenance program that will increase ability of patient to remain at home. TREATMENT CODE/TIME: Session 1??[id number] x 59 minutes beginning at 10:26 AM and 11:10 AM. Session 2??34067 x 25 minutes 66446 ?14 beginning at 13:26 PM.
[2019-10-02 15:25] VITALS: BP 123/63; PULSE 81; RESP 18; TEMP 35.8; O2SAT 99
[2019-10-02] MEDS: Tamsulosin 0.4 MG CAPCR PO (20:56)
[2019-10-02 23:09] VITALS: BP 131/57; PULSE 85; RESP 18; TEMP 37.2; O2SAT 95
[2019-10-03] MEDS: Acetaminophen 500 MG TAB 1000 MG PO ×3 (00:59→15:30)
[2019-10-03] MEDS: ceFAZolin 2 GM/50 ML BAG IVPB ×3 (00:59→17:54)
[2019-10-03] MEDS: Levothyroxine 25 MCG TAB PO (06:20)
[2019-10-03 07:45] VITALS: BP 125/68; PULSE 85; RESP 18; TEMP 36; O2SAT 98
[2019-10-03] MEDS: Finasteride 5 MG TAB PO (08:35)
[2019-10-03] MEDS: Potassium Chloride 20 MEQ TABCR PO (08:35)
[2019-10-03] MEDS: Docusate Sodium 100 MG CAP PO ×2 (08:35→20:50)
[2019-10-03] MEDS: Tamsulosin 0.4 MG CAPCR PO ×2 (08:35→20:51)
[2019-10-03] MEDS: Pantoprazole 20 MG TABCR PO (08:35)
[2019-10-03] MEDS: amLODIPine 5 MG TAB 10 MG PO (08:35)
[2019-10-03] MEDS: Magnesium Gluconate 500 MG TAB PO (08:35)
[2019-10-03] MEDS: Lidocaine 5% Patch 1 PATCH TP (08:36)
[2019-10-03] MEDS: Normal Saline Flush 10 ML SYR 20 ML IVP ×2 (08:37→20:51)
--- NOTE | 2019-10-03 14:06 | PTTR_ITS ---
Date of service: 10/03/19 Time of Service: 13:08 PT Notes Visit Reasons: MSSA BACTEREMIA, LUMBAR DISCITIS Inpatient Physical Therapy Treatment Note Date: 10/03/2019 Subjective: Dawit asked if he could stop using the yellow grippy socks as he does not feel comfortable with them. He complained about being a little out breath after putting his socks and shoes on independently. He states that he has a medication at home that he uses regularly for his breathing. Objective: General Observation: IV access in right UE. R-sided torticollis (acquired?). L genu varum.. Mental Status: Alert and oriented as to person, place, time and purpose Pain: Recurrent lower abdomnal pain Bed Mobility/Transfers: Sit to stand modified modified independent using front wheeled walker Stand to sit modified modified independent using front wheeled walker Bed to chair modified modified independent using front wheeled walker Chair to bed modified modified independent using front wheeled walker GAIT: Patient tolerated 1000 feet (200 feet x 5 continuously) of level surface ambulation using front wheeled walker with full weight bearing and supervision of PT. Reciprocal swing through gait pattern. Chayo increased. Minimal cues given just for directions, safety precautions as he is being prepared to navigate same route on his own in 2-3 days. Patient reported that he was not short of breath after walking activity. THERA EX: Cotniuation of education and training with safe and correct performance of room exercises done today. Room exercises consist of: Seated clamshell exercises x15 against red Thera-Band, seated hip flexion exercises x 15 against red Thera- Band, seated hip abduction exercises x15 against red Thera-Band, arm forward push x 15 with 2 pound dumbbells, arm push-ups x15 with 2 pound dumbbells, and elbow flexion x15 with 2 pound dumbbells. Instruction on pursed lip breathing for 3-5x after each exercise was also emphasized. Patient demosntrates more than 90% mastery of said exercises. Assessment: It was recommended to patient that he may request the nursing staff providing his care that he would need to use his regular socks with his shoes for more support for his increased ambulation activity. Nurses was updated about medication for breathlessness that he regularly took at home. Patient continues to receive antibiotic treatment via PICC line in the right UE. Patient has been upgraded to modified independent with a front wheeled walker for all mobility ADL performance inside his room, supervision in the hallways as of 10/01/2019. He continues to demonstrate steady gains in terms of strength, activity tolerance, and mobility ADL independence. PLAN: Decrease PT frequency to 1 time a day 7 days a week as of 10/03/2019. Will work on facilitating independent hallway ambulation using front wheeled walker for the early part of this week and 100% mastery of room exercises. DISCHARGE RECOMMENDATIONS: Patient will benefit from home health PT services in order to progress mobility level using least restrictive assistive ambulatory device, assess home safety, identify additional equipment needs, and establish a functional maintenance program that will increase ability of patient to remain at home. TREATMENT CODE/TIME: 30157 x 20 minutes, beginning at 13:08 PM.
[2019-10-03 15:15] VITALS: BP 142/56; PULSE 75; RESP 20; TEMP 36.1; O2SAT 98
[2019-10-03] MEDS: Normal Saline Flush 10 ML SYR IVP (17:54)
[2019-10-03 19:05] VITALS: BP 128/64; PULSE 81; RESP 18; TEMP 36.3; O2SAT 96
[2019-10-04] MEDS: Acetaminophen 500 MG TAB 1000 MG PO ×2 (03:19→07:29)
[2019-10-04] MEDS: ceFAZolin 2 GM/50 ML BAG IVPB ×3 (03:19→18:21)
[2019-10-04] MEDS: Normal Saline Flush 10 ML SYR IVP ×2 (03:21→10:45)
[2019-10-04 03:55] VITALS: BP 128/55; PULSE 91; RESP 18; TEMP 37.2; O2SAT 96
[2019-10-04] MEDS: Levothyroxine 25 MCG TAB PO (05:28)
[2019-10-04 06:46] LABS: Abs Immature Grans 0.11 k/cumm (0.0-0.09); Absolute Basophil Count 0.02 k/cumm (0.0-0.2); Absolute Lymphocyte Count 1.06 k/cumm (1.2-3.4); Absolute Monocyte Count 0.85 k/cumm (0.11-0.7); Absolute Neutrophil Count 7.15 k/cumm (1.2-6.7); Basophils % 0.2; Eosinophils % 1.1; HCT 29.1 % (40.0-50.0); HGB 9.4 g/dL (13.5-17.5); Immature Grans % 1.2 %; Lymphocytes % 11.4; Mean Corp. HGB Concentration 32.3 g/dL (32.0-36.0); Mean Corpuscular Hemoglobin 30.7 pg (27.0-33.0); Mean Corpuscular Volume 95.1 fL (80-95); Mean Platelet Volume 8.4 fL (8.0-11.0); Monocytes % 9.1; Platelet Count 555 x1000/uL (130-400); RBC 3.06 m/cumm (4.50-6.00); RBC Distribution Width 13.7 % (11.8-14.1); White Blood Cell Count 9.29 k/cumm (4.4-10.8)
[2019-10-04 06:59] LABS: Anion Gap 2.7 mmol/L (3-11); BUN 19 mg/dL (7-18); C-Reactive Protein 1.77 mg/dL (0.0-0.3); CO2 29.3 mmol/L (21.0-32.0); CREATININE 1.06 mg/dL (0.70-1.30); Calcium 9.2 mg/dL (8.5-10.1); Chloride 102 mmol/L (98-107); Glucose 99 mg/dL (74-106); Magnesium 1.9 mg/dL (1.8-2.4); Potassium 4.9 mmol/L (3.5-5.1); Sodium 134 mmol/L (136-145)
[2019-10-04 07:11] LABS: Anisocytosis 1+; Hypochromasia 1+
[2019-10-04 07:25] VITALS: BP 121/56; PULSE 90; RESP 19; TEMP 36.5; O2SAT 97
[2019-10-04 07:27] VITALS: BP 121/56; PULSE 90; RESP 18; TEMP 36.5; O2SAT 97
[2019-10-04] MEDS: Pantoprazole 20 MG TABCR PO (07:29)
[2019-10-04] MEDS: Tamsulosin 0.4 MG CAPCR PO ×2 (08:31→20:02)
[2019-10-04] MEDS: Normal Saline Flush 10 ML SYR 20 ML IVP ×2 (08:31→20:03)
[2019-10-04] MEDS: Docusate Sodium 100 MG CAP PO ×2 (08:32→20:02)
[2019-10-04] MEDS: Finasteride 5 MG TAB PO (08:32)
[2019-10-04] MEDS: amLODIPine 5 MG TAB 10 MG PO (08:32)
[2019-10-04] MEDS: Magnesium Gluconate 500 MG TAB PO (08:32)
[2019-10-04] MEDS: Lidocaine 5% Patch 1 PATCH TP (08:33)
--- NOTE | 2019-10-04 10:45 | PT.INTREAT ---
Date of service: 10/04/19 Time of Service: 10:45 PT Notes Visit Reasons: MSSA BACTEREMIA, LUMBAR DISCITIS Inpatient Physical Therapy Treatment Note Date: 10/04/2019 Subjective: Dawit states that he will have a pair or 2 more of shoes that he will have his niece bring in so that he can test them out in preparation for hallway walking. He is happy about his study improvements with physical therapy and is willing to work on increasing independence with walking in the hallways. He is amenable progressing exercise intensity using green Thera-Band and increased number of exercise repetitions. For now, Dawit wants to make sure that he has his regular socks and his pair of shoes on for all mobility ADLs. Objective: General Observation: IV access in right UE. R-sided torticollis (acquired?). L genu varum.. Mental Status: Alert and oriented as to person, place, time and purpose Pain: None reported Bed Mobility/Transfers: Sit to stand modified modified independent using front wheeled walker Stand to sit modified modified independent using front wheeled walker Bed to chair modified modified independent using front wheeled walker Chair to bed modified modified independent using front wheeled walker GAIT: Patient tolerated 600 feet (200 feet x 3 continuously) of level surface ambulation using front wheeled walker with full weight bearing and supervision of PT. patient also tolerated ambulation without any assistive device for 50 feet with supervision and moderate verbal cueing for safe technique. Reciprocal swing through gait pattern. Chayo increased. Minimal cues given just for directions and safety precautions as he is being prepared to navigate same route on his own in 2-3 days. Patient reported that he was not short of breath after walking activity. THERA EX: Patient demonstrates 100% mastery of room exercises consist of: Seated clamshell exercises x15 against red Thera-Band, seated hip flexion exercises x 15 against red Thera-Band, seated hip abduction exercises x15 against red Thera-Band, arm forward push x 15 with 2 pound dumbbells, arm push-ups x15 with 2 pound dumbbells, and elbow flexion x15 with 2 pound dumbbells. Instruction on pursed lip breathing for 3-5x after each exercise was also emphasized. Exercise progression as of today: Use green Thera-Band and increased number of repetitions to 20 times twice daily. Assessment: Patient has been upgraded to modified independent with a front wheeled walker for all mobility ADL performance inside his room, supervision in the hallways as of 10/01/2019. He continues to demonstrate steady gains in terms of strength, activity tolerance, and mobility ADL independence. PLAN: Decrease PT frequency to 1 time a day 7 days a week as of 10/03/2019. Will work on facilitating independent hallway ambulation using front wheeled walker for the early part of this week and 100% mastery of room exercises. DISCHARGE RECOMMENDATIONS: Patient will benefit from home health PT services in order to progress mobility level using least restrictive assistive ambulatory device, assess home safety, identify additional equipment needs, and establish a functional maintenance program that will increase ability of patient to remain at home. TREATMENT CODE/TIME: 50702 x 45 minutes, beginning at 10:45 AM.
[2019-10-04 15:20] VITALS: BP 130/66; PULSE 83; RESP 19; TEMP 36.3; O2SAT 99
[2019-10-04 19:00] VITALS: BP 146/77; PULSE 80; RESP 19; TEMP 37; O2SAT 97
[2019-10-04] MEDS: Mylanta Suspension 30 ML CUP PO (20:02)
[2019-10-04] MEDS: Bisacodyl 10 MG SUPP PR (20:12)
[2019-10-05] MEDS: ceFAZolin 2 GM/50 ML BAG IVPB ×3 (01:24→17:27)
[2019-10-05] MEDS: Levothyroxine 25 MCG TAB PO (05:57)
[2019-10-05 07:24] VITALS: BP 133/65; PULSE 82; RESP 18; TEMP 36.9; O2SAT 96
[2019-10-05] MEDS: Tamsulosin 0.4 MG CAPCR PO ×2 (07:48→20:13)
[2019-10-05] MEDS: amLODIPine 5 MG TAB 10 MG PO (07:48)
[2019-10-05] MEDS: Docusate Sodium 100 MG CAP PO ×2 (07:48→20:13)
[2019-10-05] MEDS: Pantoprazole 20 MG TABCR PO (07:48)
[2019-10-05] MEDS: Magnesium Gluconate 500 MG TAB PO (07:48)
[2019-10-05] MEDS: Finasteride 5 MG TAB PO (07:48)
[2019-10-05] MEDS: Normal Saline Flush 10 ML SYR 20 ML IVP ×2 (07:49→20:13)
[2019-10-05] MEDS: Lidocaine 5% Patch 1 PATCH TP (07:49)
--- NOTE | 2019-10-05 08:03 | OT.INTREAT ---
Date of service: 10/05/19 Time of Service: 07:35 Occupational Therapy Notes Occupational Therapy Inpatient Treatment Note Date: 10/05/19 PRECAUTIONS: Fall, Standard, DNR/DNI SUBJECTIVE: Pt was sitting in chair when OT arrived. He states that he has to do exercises for Physical Therapy but is not motivated to do them at this time. He reports that he is able to walk in his room (I) but did feel unstable this weekend. He states that he is unsure as to whether he performed his exercises last night or not. He states that he is having a hard time remembering things which is bothersome to him. OBJECTIVE: PAIN:c/o pain in neck FUNCTIONAL MOBILITY Sit-stand: (S) Stand-sit: (S) Bed-Chair: (S) Chair-bed: (S) DRESSING: Sitting on side of bed with min vc pt was able to walk to pick out his clothes, slight LOB standing with FWW in static standing. He was able to shift weight (B) while reaching with (B) UE. Upper Extremity: (I) with doffing robe and hospital gown, (I) donning t-shirt with min vc for front and back Lower Extremity: (I) able to don and doff (B) socks with increased performance time, (I) don pants and belt with min vc and able to pull up and down with minimal trunk sway or LOB. Functionally pt was able to reach down for shoes but would like to hold as this is uncomfortable to him. ASSESSMENT/PLAN: Pt was receptive to education and training provided at todays session. Next session OT will work with pt on adpative equipment for dressing due to increased performance time and LOB when static standing which is concerning for performance of standing ADL/IADL routines. Functionally with min vc pt was able to perform dressing with good technique. OT will continue to work with pt to progress towards goals established at initial evaluation. TREATMENT CODES/TIME: 10550h1, 25 minutes (07:35) Jasmyn Grewal OTR/[facility]
--- NOTE | 2019-10-05 08:22 | PGE_ITS ---
Date of Service Date of service: 10/05/19 Time of Service: 08:22 Assessment and Plan Assessment and plan (1) MSSA bacteremia: Start date: 10/05/19 Start time: 08:25 Status: Acute Assessment and plan: continue Ancef 2 mg IV q8hr for 6 weeks from last first negative blood cultures (09/27) i.e. through 11/09/2019 (2) Lumbar discitis: Start date: 10/05/19 Start time: 08:25 Status: Acute Assessment and plan: check repeat MRI of LS spine in 4-6 weeks (i.e. 10/25- 11/08), would likely benefit from lifelong antbx suppression such as doxycycline (3) Urinary retention: Start date: 10/05/19 Start time: 08:26 Status: Acute Assessment and plan: Per Dr. Gao's recommendation, do not replace rodríguez catheter and try to minimize straight cath; allow his bladder to fill up and cath when he feels uncomfortable. I have set parameters for post void residuals of 500 mL or more. (4) BPH (benign prostatic hyperplasia): Start date: 10/05/19 Start time: 08:26 Status: Chronic Assessment and plan: continue Flomax and Proscar Qualifiers: Lower urinary tract symptom presence: symptoms present Lower urinary tract symptom detail: urinary retention Qualified Code(s): N40.1 - Benign prostatic hyperplasia with lower urinary tract symptoms; R33.8 - Other retention of urine (5) Essential hypertension: Start date: 10/05/19 Start time: 08:26 Status: Acute Assessment and plan: continue amlodipine; if BP remains elevated then consider addition of Coreg (6) Ambulatory dysfunction: Start date: 10/05/19 Start time: 08:26 Status: Acute Assessment and plan: Continues to work with PT, feeling stronger. (7) DVT prophylaxis: Start date: 10/05/19 Start time: 08:27 Status: Acute Assessment and plan: patient is now more ambulatory and should not need lovenox therapy; he has been walking w/ FWW and getting in/out of bed on his own to his chair (8) Discharge planning issues: Start date: 10/05/19 Start time: 08:31 Status: Acute Assessment and plan: home once completion of his Ancef treatment Above case discussed with Dr. Lowery who is in agreement. Subjective Subjective Patient reports: feels better and other Interval history since last seen: Mr. Hanson appears to be doing well. Slept well last night. He does c/o having hard stool for the last 3 days with only small amounts. Spoke about a bowel regimen, otherwise, ambulatory with little pain relieved by tylenol. He denies CP, SOB, N/V/D. Exam Narrative Exam Narrative: Alert and oriented person place time circumstance sitting up in a chair eating breakfast Lungs are clear to auscultation. Heart is regular rate and rhythm without murmur rub or gallop. Abdomen with normal bowel sounds x4 soft nontender. Extremities without peripheral cyanosis or edema. Spine is nontender to palpation. Objective Objective Clinical Data: Vital Signs Temperature 36.9 C 10/05/19 07:24 Temperature Source Tympanic 10/05/19 07:24 Pulse 82 10/05/19 07:24 Pulse Rhythm Regular 10/05/19 05:05 Respiratory Rate 18 10/05/19 07:24 Respiratory Effort Non-Labored 10/05/19 05:05 Respiratory Depth Normal 10/05/19 05:05 Respiratory Pattern Normal 10/05/19 05:05 Blood Pressure 133/65 10/05/19 07:24 Pulse Oximetry 96 10/05/19 07:24 Oxygen Delivery Method Room Air 10/05/19 07:24 Oxygen Flow Rate 0 10/05/19 07:24 Pain Level 0 10/05/19 07:24 Intake & Output 10/04/19 10/04/19 10/05/19 11:59 23:59 11:59 Intake Total 100 / 650 550 / 650 Output Total 1200 / 2900 1700 / 2900 300 / 300 Balance -1100 / -2250 -1150 / -2250 -300 / -300 Weight 72.9 kg Intake: IV 100 / 150 50 / 150 Oral 500 / 500 Output: Urine 1200 / 2900 1700 / 2900 300 / 300 Other: Urine Color Yellow Straw Yellow Urine Appearance Clear Clear Clear Urine Odor Normal Comment no intervention Stool Size Small Small Moderate Stool Characteristics Soft Soft Formed Brown Voiding Methods Toilet Toilet Laboratory Results WBC 9.29 k/cumm (4.4-10.8) 10/04/19 06:13 RBC 3.06 m/cumm (4.50-6.00) L 10/04/19 06:13 Hgb 9.4 g/dL (13.5-17.5) L 10/04/19 06:13 Hct 29.1 % (40.0-50.0) L 10/04/19 06:13 MCV 95.1 fL (80-95) H 10/04/19 06:13 MCH 30.7 pg (27.0-33.0) 10/04/19 06:13 MCHC 32.3 g/dL (32.0-36.0) 10/04/19 06:13 RDW 13.7 % (11.8-14.1) 10/04/19 06:13 Plt Count 555 x1000/uL (130-400) H 10/04/19 06:13 MPV 8.4 fL (8.0-11.0) 10/04/19 06:13 Immature Gran % 1.2 % 10/04/19 06:13 Neutrophils % 77.0 10/04/19 06:13 Lymphocytes % 11.4 10/04/19 06:13 Monocytes % 9.1 10/04/19 06:13 Eosinophils % 1.1 10/04/19 06:13 Basophils % 0.2 10/04/19 06:13 Absolute Neutrophils 7.15 k/cumm (1.2-6.7) H 10/04/19 06:13 Absolute Lymphocytes 1.06 k/cumm (1.2-3.4) L 10/04/19 06:13 Absolute Monocytes 0.85 k/cumm (0.11-0.7) H 10/04/19 06:13 Absolute Eosinophils 0.10 k/cumm (0.0-0.7) 10/04/19 06:13 Absolute Basophils 0.02 k/cumm (0.0-0.2) 10/04/19 06:13 RBC Morphology See below 10/04/19 06:13 Hypochromasia 1+ 10/04/19 06:13 Anisocytosis 1+ 10/04/19 06:13 Sodium 134 mmol/L (136-145) L 10/04/19 06:13 Potassium 4.9 mmol/L (3.5-5.1) 10/04/19 06:13 Chloride 102 mmol/L (98-107) 10/04/19 06:13 Carbon Dioxide 29.3 mmol/L (21.0-32.0) 10/04/19 06:13 Anion Gap 2.7 mmol/L (3-11) L 10/04/19 06:13 BUN 19 mg/dL (7-18) H 10/04/19 06:13 Creatinine 1.06 mg/dL (0.70-1.30) 10/04/19 06:13 Estimated GFR/1.73 m2 >= 60.00 (mL/min/1.73m2) 10/04/19 06:13 Glucose 99 mg/dL (74-106) 10/04/19 06:13 Calcium 9.2 mg/dL (8.5-10.1) 10/04/19 06:13 Magnesium 1.9 mg/dL (1.8-2.4) 10/04/19 06:13 C-Reactive Protein 1.77 mg/dL (0.0-0.3) H 10/04/19 06:13
[2019-10-05] MEDS: Polyethylene Glycol 3350 17 GM PACKET PO ×2 (08:48→20:13)
--- NOTE | 2019-10-05 10:31 | PTTR_ITS ---
Date of service: 10/05/19 Time of Service: 10:31 PT Notes Visit Reasons: MSSA BACTEREMIA, LUMBAR DISCITIS Inpatient Physical Therapy Treatment Note Date: 10/05/2019 Subjective: Dawit continues to be satisfied with how he is able to do more each day with physical therapy. He voices that he does not feel safe wearing the blue shoes and would like to wait for his niece to bring another pair of sneakers and slippers tomorrow. He said that his neck bothered him early this morning but same subsided once a new pain patch was put on. He is happy about being able to move his bowel this morning. Objective: General Observation: IV access in right UE. R-sided torticollis (acquired?). L genu varum.. Mental Status: Alert and oriented as to person, place, time and purpose Pain: None reported Bed Mobility/Transfers: Sit to stand modified modified independent using front wheeled walker Stand to sit modified modified independent using front wheeled walker Bed to chair modified modified independent using front wheeled walker Chair to bed modified modified independent using front wheeled walker GAIT: With the front-wheeled walker, patient patient tolerated level surface ambulation of 520 feet with increased posterior sway backward and to the left x 2 but without loss of balance. Without an assistive device, patient was able to go around the perimeter of the practice stairs in the therapy gym measuring 21 feet each trip x 10 trips without any loss of balance requiring distant supervision of PT. Reciprocal swing through gait pattern. Chayo increasing. No shortness of breath seen. THERA EX: Patient demonstrates 100% mastery of room exercises consisting of: Seated clamshell exercises x15 against red Thera-Band, seated hip flexion exercises x 15 against red Thera-Band, seated hip abduction exercises x15 against red Thera- Band, arm forward push x 15 with 2 pound dumbbells, arm push-ups x15 with 2 pound dumbbells, and elbow flexion x15 with 2 pound dumbbells. Instruction on pursed lip breathing for 3-5x after each exercise was also emphasized. Exercise progression as of 10/04/2019: Use green Thera-Band and increased number of repetitions to 20 times twice daily. A copy of exercises was provided today for patient for maximized compliance. THERA ACT: With standby assist of PT behind patient, patient tolerated walking backwards with right foot leading for 10 steps with 2 sets done. This was followed with the left foot leading for 10 steps with 2 sets done with the same amount of assistance. No LOB seen. Level of difficulty of backing up is less less with the right foot leading. With arms across chest and seated on the edge of mat, with mets that at its lowest height, patient is able to do sit to stand activities x15 without any complaints of fatigue or pain on bilateral lower extremities. Assessment: Patient has been upgraded to modified independent with a front wheeled walker for all mobility ADL performance inside his room, supervision in the hallways as of 10/01/2019. He continues to demonstrate steady gains in terms of strength, activity tolerance, and mobility ADL independence. PLAN: Decrease PT frequency to 1 time a day 7 days a week as of 10/03/2019. Will work on facilitating independent hallway ambulation using front wheeled walker for the early part of this week and 100% mastery of room exercises. Will progress balance exercises on soft/or uneven surfaces. DISCHARGE RECOMMENDATIONS: Patient will benefit from home health PT services in order to progress mobility level using least restrictive assistive ambulatory device, assess home safety, identify additional equipment needs, and establish a functional maintenance program that will increase ability of patient to remain at home. TREATMENT CODE/TIME: 84359 x 33 minutes beginning at 10:31 AM.
[2019-10-05] MEDS: Acetaminophen 325 MG TAB 650 MG PO (14:31)
[2019-10-05 15:15] VITALS: BP 124/93; PULSE 95; RESP 19; TEMP 36.7; O2SAT 97
--- NOTE | 2019-10-05 15:48 | CHAPLAIN ---
Willy was dresssed in his own clothes today, and said that felt good and he plans to keep doing that. He said he was tired today, we didn't have as long a conversation as other days. He said he plans to speak with his niece today to arrange for some more clothes to be dropped off.
[2019-10-05] MEDS: Normal Saline Flush 10 ML SYR IVP (17:26)
[2019-10-05 22:11] VITALS: BP 120/63; PULSE 79; RESP 18; TEMP 36.5; O2SAT 96
[2019-10-06] MEDS: ceFAZolin 2 GM/50 ML BAG IVPB ×3 (01:12→18:48)
[2019-10-06] MEDS: Normal Saline Flush 10 ML SYR IVP ×2 (02:14→18:49)
[2019-10-06 03:58] VITALS: BP 134/64; PULSE 81; RESP 18; TEMP 37; O2SAT 96
[2019-10-06] MEDS: Levothyroxine 25 MCG TAB PO (05:45)
[2019-10-06 06:58] VITALS: BP 129/56; PULSE 83; RESP 18; TEMP 37.3; O2SAT 96
--- NOTE | 2019-10-06 08:12 | OTTR_ITS ---
Date of service: 10/06/19 Time of Service: 07:45 Occupational Therapy Notes Occupational Therapy Inpatient Treatment Note Date: 10/06/19 PRECAUTIONS: Fall, Standard, DNR/DNI SUBJECTIVE: Pt was sitting in bed when OT arrived. He was frustrated this morning and reports that he needs to get his thoughts together. He states that there is too much happening right now and that he needs his psychologist to call him back. He then states that he has time with LOB but thinks that he is doing better. He seeks that positive reassurance throughout session today. OBJECTIVE: PAIN:c/o pain in (B) heels. He notes that this may be from his socks rubbing while he walks. FUNCTIONAL MOBILITY Rolling L/R: (I) Supine-sit: (I) Sit-stand: (S) Stand-sit: (S) Bed-Chair: (S) with slight LOB with functional reaching required for ADL performance BATHING: Pt denies right now indicating that he will perform this later as he has too much to do right now. DRESSING: with min vc throughout. When reaching and picking out clothes pt experienced a slight LOB and leaned against the wall. He was upset about this but states that this does happen from time to time. Upper Extremity: Sitting on side of the bed pt was able to (I) don and doff t- shirt. He did require min vc for front and back of shirt. (I) with [facility] gown in standing position. Lower Extremity: Seated position- OT trained and educated pt in use of dressing stick, long handled shoe horn, and sock aid. Pt was able to (I) doff (B) socks with bending knee over opposite leg. He was able to demonstrate use of sock aid with ideal technique. He found this to be helpful. He was able to (I) don underwear and pants with vc for pulling pants up rather than stepping on them and giving vc for safety awareness during dressing routine. EATING: Sitting in chair (I) with opening packages and hand to mouth translation. ASSESSMENT/PLAN: Pt was receptive to use of adaptive equipment which was beneficial due to his neck pain. He performed his dressing routine with decreased performance time. He was upset with his minor LOB this seems to occur when he has to reach for objects or dynamically stand and perform ADLs. OT will work with pt on progression towards goals established at initial consult with education of energy conservation techniques at last session. TREATMENT CODES/TIME: 12817i0, 30 minutes (07:45) AMRIT Garcia/[facility] [place], [place]
[2019-10-06] MEDS: Lidocaine 5% Patch 1 PATCH TP (08:25)
[2019-10-06] MEDS: Polyethylene Glycol 3350 17 GM PACKET PO ×2 (08:25→20:15)
[2019-10-06] MEDS: amLODIPine 5 MG TAB 10 MG PO (08:25)
[2019-10-06] MEDS: Magnesium Gluconate 500 MG TAB PO (08:26)
[2019-10-06] MEDS: Finasteride 5 MG TAB PO (08:26)
[2019-10-06] MEDS: Pantoprazole 20 MG TABCR PO (08:26)
[2019-10-06] MEDS: Normal Saline Flush 10 ML SYR 20 ML IVP ×2 (08:26→20:15)
[2019-10-06] MEDS: Tamsulosin 0.4 MG CAPCR PO ×2 (08:26→20:14)
[2019-10-06] MEDS: Docusate Sodium 100 MG CAP PO ×2 (08:26→20:14)
--- NOTE | 2019-10-06 09:25 | CM.SWINGPC ---
- If Service Date Differs Date of service: 09/30/19 Time of Service: 09:26 Swingbed Plan of Care Plan of care: SWING BED PROGRAM ACTIVITIES/DISCHARGE PLAN OF CARE ACTIVITIES PLAN Date:09/30/2019 Identified Need:Individual activities Intervention/Plan: Activity cart, television, patient computer, music tablet, phone in the room, Face time video with family when requested, other activities not available at this time due to COIVD precautions Initials SUKI DISCHARGE PLAN Date:09/30/2019 Identified Need: MSSA bacteremia Intervention/Plan: IV abx thru November 08 and then discharged home Initials SUKI
--- NOTE | 2019-10-06 09:35 | CMSA_ITS ---
- If Service Date Differs Date of service: 09/30/19 Time of Service: 09:30 SB Psychosocial/Act.Assessment - Hospital Admission Admission Date: 09/21/19 Admission From:: Acute hospital stay Diagnosis:: MSSA Bacteremia - Swing Bed Admission Swing Bed Admit Date:: 09/30/19 Swing Bed Level of Care: Level 1/SNF - Social Supports PREVIOUS FUNCTIONAL STATUS/SOCIAL/FAMILY SUPPORTS:: Willy lives alone in [place], [place]. - Prior to Admission Living Arrangements/Environment Prior to Admission:: Willy lives in his own apartment in [place], [place] he has a niece and nephew who provide him support. He was indepedent prior to admission. 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 Where did you attend School:: [place] Special Education/Training:: [employer] - Work History Employment Status:: retired - [place]: No 's Spouse: No - Benefits Financial: Social Security, Medicare - Advance Directives for Healthcare Advance Directives for Healthcare: Advance Directives - Present Functional Status Physical Abilities:: Weakness related to illness and diagnosis Cognitive:: Intact Communication:: engaged in conversation appears to enjoy company Sensory Systems: Intact Behavior:: Appropiate and engaged - Medical History PAST MEDICAL HISTORY/PAST SURGICAL HISTORY:: Left inguinal hernia, erectile dysfunction General Health:: Fair admitted with sepsis and MSSA bacteremia - Admission Data Reason for Swing Bed Admission:: IV abx x 6 weeks for MSSA bacteremia Discharge Plan:: Willy will be discharged home when medically ready and he has completed his IV abx. Anticipate no additional services needed at time of discharge. Assessment: Willy is a 74 year old male admitted for Sepsis and now rec. 6 weeks of IV abx for MSSA. He will also have PT while inpatient related to weakness and prolonged hospital stay. Willy will be discharged home when medically ready anticipate no additional services, CM will continue to assess ongoing discharge needs. Student Teaching Coordinator: Enma Michel Date Assessment was completed:: 09/30/19
--- NOTE | 2019-10-06 12:07 | PTTR_ITS ---
Date of service: 10/06/19 Time of Service: 10:45 PT Notes Visit Reasons: MSSA BACTEREMIA, LUMBAR DISCITIS Inpatient Physical Therapy Treatment Note Date: 10/06/2019 Subjective: Dawit notes that he is a little frustrated this morning. He has a call into his psychiatrist. He just needs to talk. He notes that he overall is feeling better and is happy with this however remains frustrated at the same time with still being in the hospital. Understands he needs to stay here for an antibiotic. Objective: General Observation: IV access in right UE. R-sided torticollis (acquired?). L genu varum.. Mental Status: Alert and oriented as to person, place, time and purpose Pain: None reported Bed Mobility/Transfers: Sit to stand modified modified independent using front wheeled walker Stand to sit modified modified independent using front wheeled walker Bed to chair modified modified independent using front wheeled walker Chair to bed modified modified independent using front wheeled walker GAIT: With the front-wheeled walker, patient patient tolerated level surface ambulatio n of 600 feet without loss of balance. Chayo increasing. No shortness of breath seen. Neuromuscular Reeducation: Proprioceptive/balance activities With standby assist of PT behind patient, patient tolerated walking backwards with right foot leading for 10 steps with 2 sets done. This was followed with the left foot leading for 10 steps with 2 sets done with the same amount of assistance. No LOB seen. With arms across chest and seated on the edge of mat, with mets that at its lowest height, patient is able to do sit to stand activities x15 without any complaints of fatigue or pain on bilateral lower extremities. Completed standing rotation with ball, 10 times each side without loss of balance. Demonstrates independence with all therapeutic exercise with 100% mastery of room exercises Assessment: Patient has been upgraded to modified independent with a front wheeled walker for all mobility ADL performance inside his room, supervision in the hallways as of 10/01/2019. He continues to demonstrate steady gains in terms of strength, activity tolerance, and mobility ADL independence. PLAN: Decrease PT frequency to 1 time a day 7 days a week as of 10/03/2019. Will work on facilitating independent hallway ambulation using front wheeled walker for the early part of this week and 100% mastery of room exercises. Will progress balance exercises on soft/or uneven surfaces. DISCHARGE RECOMMENDATIONS: Patient will benefit from home health PT services in order to progress mobility level using least restrictive assistive ambulatory device, assess home safety, identify additional equipment needs, and establish a functional maintenance program that will increase ability of patient to remain at home. TREATMENT CODE/TIME: [id number], [id number] 25 minutes beginning at 10:45 AM.
[2019-10-06 15:04] VITALS: BP 128/57; PULSE 86; RESP 20; TEMP 36; O2SAT 97
[2019-10-06 19:44] VITALS: BP 165/62; PULSE 89; RESP 20; TEMP 36.4; O2SAT 97
[2019-10-07] MEDS: ceFAZolin 2 GM/50 ML BAG IVPB ×3 (01:09→17:59)
[2019-10-07] MEDS: Normal Saline Flush 10 ML SYR IVP (01:10)
[2019-10-07] MEDS: Mylanta Suspension 30 ML CUP PO (02:08)
[2019-10-07 03:41] VITALS: BP 136/67; PULSE 82; RESP 19; TEMP 37.2; O2SAT 97
[2019-10-07] MEDS: Levothyroxine 25 MCG TAB PO (05:59)
[2019-10-07 07:24] VITALS: BP 113/72; PULSE 80; RESP 17; TEMP 36.8; O2SAT 96
[2019-10-07] MEDS: amLODIPine 5 MG TAB 10 MG PO (07:28)
[2019-10-07] MEDS: Pantoprazole 20 MG TABCR PO (07:28)
[2019-10-07] MEDS: Magnesium Gluconate 500 MG TAB PO (07:28)
[2019-10-07] MEDS: Tamsulosin 0.4 MG CAPCR PO ×2 (07:28→20:17)
[2019-10-07] MEDS: Finasteride 5 MG TAB PO (07:28)
--- NOTE | 2019-10-07 09:06 | OT.INTREAT ---
Date of service: 10/07/19 Time of Service: 08:40 Occupational Therapy Notes Occupational Therapy Inpatient Treatment Note Date: 10/07/19 PRECAUTIONS: Fall, Standard, DNR/DNI SUBJECTIVE: Pt was sitting in chair when OT arrived. He notes that he has been up all night due to diarrhea, he vomited and is not in the right head space. He states that he can't describe it but he feels groggy and not in the right mental state to be able to do anything. He reports that he would like to do what is being asked but just can't. He is agreeable to OT session but states that he is having a hard time doing what he needs to do lately. He feels that this may be from dehydration. Pt has multiple drinks in his room in reach. He also reports that he is unmotivated to perform his PT exercises but will do it because he needs to perform them before PT comes in to work with him. While pt is talking with OT he notes multiple times that his eyes feel heavy and that this may be because he is tired. OBJECTIVE: PAIN:no c/o pain FUNCTIONAL MOBILITY Sit-stand: SBA, FWW with loss of balance when he goes to stand up which pt becomes frustrated about and sits for a couple minutes because he states that he is disappointed that he continues to lose his balance at times. Stand-sit: (S) Bed-Chair: (S) Chair-bed: (S) Therapeutic Activities [id number]: Pt performed Functional mobility required for ADLs for picking out clothes and getting weights required for PT exercises. He demonstrated LOB from sit to stand and increased performance time to get from chair to window. When picking out clothes he had good static standing with FWW in place and no hands resting when moving his clothes. He required vc for step sequencing on how to get weights to the table beside his chair. OT and discussed this as if in the kitchen performing a cooking task and functionally/strategically placing objects for desired ADL performance. Pt demonstrated noted fatigue post session. He is able to demonstrate some energy conservation techniques but requires vc throughout. ASSESSMENT/PLAN: Pt has been having a hard time with his head space which he has advocated to OT the last two sessions that he is struggling at this time. He was receptive to functional mobility for ADL/IADL routines to increase his functional performance of ADLS. He did have a LOB when going from sit to stand which resulted in pt sitting back into the chair before reaching the standing position. This was frustrating for him. Functionally pt was able to demonstrate problem solving with picking out his clothes, and getting his exercise equipment required for PT session. He required min vc for step sequencing for moving and placing objects as well as energy conservation techniques. He was adamant that he did not want to get dressed or washed up today as he just could not do it. OT will continue to work with pt on functional (I) in his dressing and bathing routines with specific goal of returning to home when medically cleared per MD. TREATMENT CODES/TIME: [id number], 20 minutes (08:40) Jasmyn Grewal OTR/[facility]
[2019-10-07] MEDS: Normal Saline Flush 10 ML SYR 20 ML IVP ×2 (09:32→20:17)
--- NOTE | 2019-10-07 12:15 | PT.INTREAT ---
Date of service: 10/07/19 Time of Service: 10:45 PT Notes Visit Reasons: MSSA BACTEREMIA, LUMBAR DISCITIS Inpatient Physical Therapy Treatment Note Date: 10/07/2019 Subjective: Dawit notes that he just did not feel up to getting dressed today with OT. He felt a little off balance this morning as well. Is frustrated with the level of concentration that he needs to have to avoid loss of balance. Notes walking was much more tolerable with his shoes on. Objective: General Observation: IV access in right UE. R-sided torticollis (acquired?). L genu varum.. Mental Status: Alert and oriented as to person, place, time and purpose Pain: None reported Bed Mobility/Transfers: Sit to stand independent using front wheeled walker Stand to sit independent using front wheeled walker Bed to chair independent using front wheeled walker Chair to bed independent using front wheeled walker GAIT: With the front-wheeled walker, patient tolerated level surface ambulation of 800 feet without loss of balance. Chayo increasing. No shortness of breath seen. Neuromuscular Reeducation: Proprioceptive/balance activities With standby assist of PT behind patient, patient tolerated walking backwards 5 times by 5 feet, sidestepping 5 times by 5 feet each direction. No LOB seen. With arms across chest and seated on the edge of mat, with mat at its lowest height, patient is able to do sit to stand activities x15 without any complaints of fatigue or pain on bilateral lower extremities. Tandem stance 3 x 20 seconds. Unilateral stance right 2 x 5 seconds, left 2 x 5 seconds. Demonstrates independence with all therapeutic exercise with 100% mastery of room exercises Assessment: Patient has been upgraded to modified independent with a front wheeled walker for all mobility ADL performance inside his room, supervision in the hallways as of 10/01/2019. He continues to demonstrate steady gains in terms of strength, activity tolerance, and mobility ADL independence. PLAN: PT frequency to 1 time a day 7 days a week as of 10/03/2019. Will work on facilitating independent hallway ambulation using front wheeled walker for the early part of this week and 100% mastery of room exercises. Will progress balance exercises on soft/or uneven surfaces. DISCHARGE RECOMMENDATIONS: Patient will benefit from home health PT services in order to progress mobility level using least restrictive assistive ambulatory device, assess home safety, identify additional equipment needs, and establish a functional maintenance program that will increase ability of patient to remain at home. TREATMENT CODE/TIME: [id number], [id number] 30 minutes beginning at 10:45 AM.
--- NOTE | 2019-10-07 14:34 | W.PM.PROGNOT ---
Date of Service Date of service: 10/07/19 Time of Service: 14:34 Subjective Subjective Interval history since last seen: Patient developed watery diarrhea overnight. Tested positive for C. Diff. Being started on PO vanco and flagyl. PPI is being changed to H2 rehana. Objective Objective Clinical Data: Vital Signs Temperature 36.8 C 10/07/19 07:24 Temperature Source Tympanic 10/07/19 07:24 Pulse 80 10/07/19 07:24 Pulse Rhythm Regular 10/07/19 07:30 Respiratory Rate 17 10/07/19 07:24 Respiratory Effort Non-Labored 10/07/19 07:30 Respiratory Depth Normal 10/07/19 07:30 Respiratory Pattern Normal 10/07/19 07:30 Blood Pressure 113/72 10/07/19 07:24 Pulse Oximetry 96 10/07/19 07:24 Oxygen Delivery Method Room Air 10/07/19 07:24 Oxygen Flow Rate 0 10/07/19 07:24 Pain Level 0 10/07/19 07:24 Intake & Output 10/06/19 10/07/19 10/07/19 23:59 11:59 23:59 Intake Total 670 / 1100 500 / 740 240 / 740 Output Total 1050 / 3800 850 / 850 Balance -380 / -2700 -350 / -110 240 / -110 Weight 73.8 kg Intake: IV 70 / 200 90 / 90 Oral 600 / 900 410 / 650 240 / 650 Output: Urine 1050 / 3800 850 / 850 Other: Urine Color Yellow Yellow Urine Appearance Clear Clear Urine Odor Normal Normal Stool Size Moderate Moderate Stool Characteristics Soft Liquid Liquid Voiding Methods Toilet Toilet Laboratory Results WBC 9.29 k/cumm (4.4-10.8) 10/04/19 06:13 RBC 3.06 m/cumm (4.50-6.00) L 10/04/19 06:13 Hgb 9.4 g/dL (13.5-17.5) L 10/04/19 06:13 Hct 29.1 % (40.0-50.0) L 10/04/19 06:13 MCV 95.1 fL (80-95) H 10/04/19 06:13 MCH 30.7 pg (27.0-33.0) 10/04/19 06:13 MCHC 32.3 g/dL (32.0-36.0) 10/04/19 06:13 RDW 13.7 % (11.8-14.1) 10/04/19 06:13 Plt Count 555 x1000/uL (130-400) H 10/04/19 06:13 MPV 8.4 fL (8.0-11.0) 10/04/19 06:13 Immature Gran % 1.2 % 10/04/19 06:13 Neutrophils % 77.0 10/04/19 06:13 Lymphocytes % 11.4 10/04/19 06:13 Monocytes % 9.1 10/04/19 06:13 Eosinophils % 1.1 10/04/19 06:13 Basophils % 0.2 10/04/19 06:13 Absolute Neutrophils 7.15 k/cumm (1.2-6.7) H 10/04/19 06:13 Absolute Lymphocytes 1.06 k/cumm (1.2-3.4) L 10/04/19 06:13 Absolute Monocytes 0.85 k/cumm (0.11-0.7) H 10/04/19 06:13 Absolute Eosinophils 0.10 k/cumm (0.0-0.7) 10/04/19 06:13 Absolute Basophils 0.02 k/cumm (0.0-0.2) 10/04/19 06:13 RBC Morphology See below 10/04/19 06:13 Hypochromasia 1+ 10/04/19 06:13 Anisocytosis 1+ 10/04/19 06:13 Sodium 134 mmol/L (136-145) L 10/04/19 06:13 Potassium 4.9 mmol/L (3.5-5.1) 10/04/19 06:13 Chloride 102 mmol/L (98-107) 10/04/19 06:13 Carbon Dioxide 29.3 mmol/L (21.0-32.0) 10/04/19 06:13 Anion Gap 2.7 mmol/L (3-11) L 10/04/19 06:13 BUN 19 mg/dL (7-18) H 10/04/19 06:13 Creatinine 1.06 mg/dL (0.70-1.30) 10/04/19 06:13 Estimated GFR/1.73 m2 >= 60.00 (mL/min/1.73m2) 10/04/19 06:13 Glucose 99 mg/dL (74-106) 10/04/19 06:13 Calcium 9.2 mg/dL (8.5-10.1) 10/04/19 06:13 Magnesium 1.9 mg/dL (1.8-2.4) 10/04/19 06:13 C-Reactive Protein 1.77 mg/dL (0.0-0.3) H 10/04/19 06:13
[2019-10-07] MEDS: metroNIDAZOLE 500 MG TAB PO ×2 (15:18→23:38)
[2019-10-07 15:33] VITALS: BP 107/63; PULSE 84; RESP 18; TEMP 36.8; O2SAT 97
--- NOTE | 2019-10-07 16:44 | CMACTNOTE_ITS ---
- If Service Date Differs Date of service: 10/07/19 Time of Service: 16:44 Care Management Activity Note S/O: CM met with Dawit at length today he was able to discuss his concern about his illness and the recent development of loose stool. CM was able to provide education to Dawit regarding the testing and the treatment if his Cdiff returns positive. Dawit states he is being well cared for, he does want to be informed of any medication changes and appreciates the discussion around the changes. Dawit has his laptop here and can browse the internet when he wants to. He has some shows he enjoys on the television, he shared his recent viewing of ice age. Dawit has been able to speak with his primary care and his therapist from [facility]. CM offered activity cart, and option to contact his niece over the IPAD. His niece will bring in an IPAD for him and set it up so that she can facetime him when able. CM reviewed visits with [place] who reports she is meeting with the patient about every other day to provide support. A:Dawit is a 74 year old gentleman with MSSA bacteremia, receiving 6 weeks of IV abx end date 11/09/2019 P: Dawit will return home when IV abx are complete anticpate end date 11/09/2019. CM to continue to provide support on ongoing assessment of discharge needs.
[2019-10-07] MEDS: Famotidine 20 MG TAB PO (20:19)
[2019-10-07 23:43] VITALS: BP 135/64; PULSE 75; RESP 18; TEMP 36.9; O2SAT 95
[2019-10-08] MEDS: ceFAZolin 2 GM/50 ML BAG IVPB ×3 (02:57→18:20)
[2019-10-08] MEDS: Levothyroxine 25 MCG TAB PO (06:08)
[2019-10-08] MEDS: Normal Saline Flush 10 ML SYR IVP (06:09)
[2019-10-08] MEDS: amLODIPine 5 MG TAB 10 MG PO (08:10)
[2019-10-08] MEDS: Magnesium Gluconate 500 MG TAB PO (08:10)
[2019-10-08] MEDS: Finasteride 5 MG TAB PO (08:10)
[2019-10-08] MEDS: metroNIDAZOLE 500 MG TAB PO ×2 (08:10→16:25)
[2019-10-08] MEDS: Tamsulosin 0.4 MG CAPCR PO ×2 (08:11→21:55)
[2019-10-08] MEDS: Normal Saline Flush 10 ML SYR 20 ML IVP ×2 (08:12→18:20)
[2019-10-08 08:15] VITALS: BP 112/56; PULSE 80; RESP 18; TEMP 36.2; O2SAT 98
--- NOTE | 2019-10-08 10:03 | INPN_ITS ---
Date of service: 10/08/19 Time of Service: 10:03 PT Notes Visit Reasons: MSSA BACTEREMIA, LUMBAR DISCITIS Inpatient Physical Therapy Progress Note Date: 10/08/2019 Dates of Service: 09/30/2019 through 10/08/2019 PRECAUTIONS: Contact precautions for C. difficile infection. Fall. Standard. Activity as tolerated. SUBJECTIVE: Dawit continues to express frustration about his lack of full control for his urination. He states that this C. difficile infection has happened to him in the past. He appeared impatient about everything and seemed to want to complain about almost everything. He is agreeable to a PT session and felt that he was very much challenged during yesterday's balance training. Dawit states that he continues to do his room exercises in the morning and in the afternoon. OBJECTIVE General Observation: IV access in right UE. R-sided torticollis (acquired?). L genu varum.. Mental Status: Alert and oriented as to person, place, time but seems to require repetition of instructions for today's session Pain: Discomfort felt on back of neck with overhead activity PAIN: Reported some discomfort with overhead activities trying to reach for the TVs power button BED MOBILITY/TRANSFERS Rolling L/R: Independent Supine-sit: Independent Sit-supine: Independent Sit-stand: Independent Stand-sit: Independent Bed-Chair: Independent Chair-bed: Independent GAIT Assistive Device: None. FWW in hallway. Weight bearing: FWB Assist: I with in-room ambulation. Supervision with hallway ambulation. Distance: 30 feet x 2 inside room. Deviation: No LOB. Chayo improved. Posterior sway x 1 with patient holding onto wall to re-stabilize self. NEUROMUSCULAR RE-ED and THERA ACT: With arms across chest and no physical assist, patient is able to do heel raises x15 and partial knee bends x 15 while standing on a stable surface. Again, while unsupported, patient was able to manage static and dynamic standing balance while performing upper extremity activities sorting out his clothing pieces in different bags with minimal assist for organizational strategies from this PT but not requiring any physical assist to stay balanced. While unsupported in standing, patient attempted to reach overhead for power button of TV x 2 without any loss of balance. Assessment:. Patient is a 74-year-old male who presented to the ED on 09/21/2019 via EMS with chief complaints of generalized weakness that started 2 days prior to admission that has resulted to a fall on his way to his bathroom in his apartment and a left abdominal discomfort. Patient is diagnosed with pneumonia with MSSA bacteremia, acute rhabdomyolysis, increased opponent, back pain with question of vertebral osteomyelitis or discitis, neck pain, transaminitis, and ambulatory dysfunction. Patient tested negative for COVID-19 on as of 09/14/2019 at 20 3:16 PM. Patient has been upgraded to modified independent with a front wheeled walker for all mobility ADL performance inside his room, supervision in the hallways as of 10/01/2019. He continued to demonstrate steady gains in terms of strength, activity tolerance, and mobility ADL independence until about two or three days ago when patient started to demonstrate some frustration over difficulty trying to remember instructions given to him. Will plan on continuing to monitor cognitive level and apprise MD and nurse as appropriate about any worsening of symptoms. Patient presents with clinical signs and symptoms consistent with current/admitting diagnoses that have resulted to mobility limitations, gait instability, generalized weakness, and impairment of motor control as de monstrated by the following impairment level findings: 1. Decreased strength to neck, B UE, B LE major muscle groups 2. Impaired dynamic standing balance 3. Limitation of joint range of motion in cervical area Impairments are contributing to the following functional limitations: 1. Inability to safely ambulate without assistive device and physical assistance 2. Increase completion time for mobility ADL performance 3. Increased fall risk Patient is assessed as a 40762 moderate complexity based on the following: History: 74-year-old male waiting for impairment level findings, functional limitations, and medical history as indicated above Examination: Demonstrable impairment in strength, balance, and range of motion with underlying impairments and functional limitations as documented above Presentation: Evolving Decision Makin moderate complexity Goals: Goals X1 week 1. Supine-Sit independent MET 2. Sit-Supine independent MET 3. Sit-Stand independent MET 4. Stand-Sit independent MET 5. Bed-Chair independent MET 6. Chair-Bed independent MET 7. Independent gait on level surface with use of least restrictive device for at least 800 feet without report of pain nor dyspnea NOT MET. CONTINUE. 8. Independent stair negotiation while holding onto bilateral rails for at least 10 steps without report of pain nor dyspnea NOT MET. . CONTINUE. 9. Independent with home exercise program MET 10. Good static and dynamic standing balance/tolerance NOT MET. CONTINUE. Plan of Care/Treatment Plan: 1x/day, 7 days/week x 1 week. Continue with Physical Therapy intervention for strengthening, bed mobility, transfers, gait, stairs, balance training, use of assistive device. DISCHARGE RECOMMENDATIONS: Patient will benefit from home health PT services in order to progress mobility level using least restrictive assistive ambulatory device, assess home safety, identify additional equipment needs, and establish a functional maintenance program that will increase ability of patient to remain at home. TREATMENT CODE/TIME: [id number] x 40 minutes beginning at 10:03 AM. Thank you very much for this referral. Ariane Poe PT, DPT, CLT [facility] Inpatient PT at [place], [place]
--- NOTE | 2019-10-08 11:15 | OT.INNT ---
Date of service: 10/08/19 Time of Service: 10:55 Occupational Therapy Notes 10/08/19 OT attempted to see pt who refused OT services for today. Ot will attempt to resume services tomorrow morning. Jasmyn Grewal OTR/[facility]
[2019-10-08 15:20] VITALS: BP 116/64; PULSE 83; RESP 18; TEMP 37.1; O2SAT 97
--- NOTE | 2019-10-08 17:15 | CMACTNOTE_ITS ---
- If Service Date Differs Date of service: 10/08/19 Time of Service: 17:15 Care Management Activity Note Dawit remains in [facility] level 1 at [facility] for IV abx and work with PT. He has his own personal computer to work on while he is here. CM provided him with an activity book from the cart to keep him busy during his stay.
[2019-10-08 18:50] VITALS: BP 122/58; PULSE 77; RESP 18; TEMP 36.9; O2SAT 97
[2019-10-08] MEDS: Famotidine 20 MG TAB PO (21:55)
[2019-10-09] MEDS: metroNIDAZOLE 500 MG TAB PO ×3 (00:16→15:39)
[2019-10-09] MEDS: Normal Saline Flush 10 ML SYR IVP ×3 (02:35→18:11)
[2019-10-09] MEDS: ceFAZolin 2 GM/50 ML BAG IVPB ×3 (02:36→18:10)
[2019-10-09] MEDS: Mylanta Suspension 30 ML CUP PO ×2 (04:33→18:10)
[2019-10-09] MEDS: Levothyroxine 25 MCG TAB PO (06:23)
[2019-10-09 07:40] VITALS: BP 103/63; PULSE 102; RESP 17; TEMP 36.9; O2SAT 96
--- NOTE | 2019-10-09 07:57 | OTTR_ITS ---
Date of service: 10/09/19 Time of Service: 07:25 Occupational Therapy Notes Occupational Therapy Inpatient Treatment Note Date: 10/09/19 PRECAUTIONS: Fall, Standard, DNR/DNI SUBJECTIVE: Pt was sitting in bed when OT arrived. He was pleasant and reports that he was waiting for OT arrive. He states that he did try to get up on his own and felt groggy this morning but feels that this is contributed to his lack of eating at this time. OBJECTIVE: PAIN: no c.o pain, he does report discomfort in his abdomen FUNCTIONAL MOBILITY Rolling L/R: (I) Supine-sit: (I) Sit-stand: (S) Stand-sit: (S) Bed-Chair: (S) Chair-bed: (S) BATHING: Sitting on side of bed with max (A) set up Upper Body: (I) with min vc for performance as pt would wash areas multiple times and then ask OT where he washed already. Lower Body: (I) with jennifer area in standing position and (B) LE with ideal dynamic sitting balance and functional activity tolerance. DRESSING: Sitting on side of the bed Upper Extremity: (I) with donning t-shirt Lower Extremity: (I) donning (B) socks, shoes and pants, no issues with putting on socks. Pt utilized long handled shoe horn for shoes and states that he is not sure if this helps him or not. TOILETING: Device: Toilet Assist: (I) ASSESSMENT/PLAN: Progress note for Saturday. OT did feel that pt was in a better state of mind he had no LOB and was able to perform his ADLS with increased functional (I). He reports that he was groggy which does affect his functional mobility required for performance of functional activities including dressing and bathing. His ability to don and doff (B) shoes was improved and OT feels that pt continues to make positive gains towards goals established at initial consult. Goal at this time for occupational therapy is for pt to return home when medically cleared per MD. TREATMENT CODES/TIME: [id number], 30 minutes (07:25) Jasmyn Grewal, OTR/[facility]
--- NOTE | 2019-10-09 08:45 | PT.INTREAT ---
Date of service: 10/09/19 Time of Service: 08:45 PT Notes Visit Reasons: MSSA BACTEREMIA, LUMBAR DISCITIS Inpatient Physical Therapy Treatment Note Date: 10/09/2019 PRECAUTIONS: Contact precautions for C. difficile infection. Fall. Standard. Activity as tolerated. SUBJECTIVE: Dawit feels that something is different. he attributes a change in how he feels to the new antibiotics he is taking for the C. Diff. He is more pleasant today than he was yesterday. Nurse Edwina was very empathetic with him during med dispensing prior to PT session and has helped with patient's mood. OBJECTIVE General Observation: IV access in right UE. R-sided torticollis (acquired?). L genu varum.. Mental Status: Alert and oriented as to person, place, time but seems to require more cueing and encouragement for this session Pain: Stated that he had some discomofrt on the back of his neck but feels better duirng PT session BED MOBILITY/TRANSFERS Rolling L/R: Independent Supine-sit: Independent Sit-supine: Independent Sit-stand: Independent Stand-sit: Independent Bed-Chair: Independent Chair-bed: Independent GAIT Assistive Device: FWW Weight bearing: FWB Assist: Supervision with hallway ambulation. Distance: 520 feet Deviation: Chayo improved. Posterior sway x 2 but no LOB. NEUROMUSCULAR RE-ED and THERA ACT: Using blue balance foam, patient tolerated static standing without any physical assistance for 2 minutes but needed to sit down to rest right after, he then was able to continue with performing bilateral heel raises with one hand holding onto a stair rail for 15 reps with 3-second hold each time, and then finally was able to perform partial knee bends x15 with 3-second hold with out holding onto anything. Assessment: Patient has required extensive encouragement as he has become easily discouraged with everything that has been happening to him. He did say that he has a counselor that he works with regularly to address some emotional issues brought on by the passing of his and by his decreasing ability to manage on his own. Will assess appropriateness of reaching modified independence with front wheeled walker in the hallway in light of beginning depression or mental status decline. Today, patient required minimal verbal cueing for accuracy of execution to complete his room exercises. Exercises were written on the white board for improved compliance. Patient was also provided with a written copy of said exercises during the early part of this week. We will plan for a tentative review of goals this coming week in coordination with MD, care management, and patient. Plan of Care/Treatment Plan: 1x/day, 7 days/week x 1 week. Continue with Physical Therapy intervention for strengthening, bed mobility, transfers, gait, stairs, balance training, use of assistive device. DISCHARGE RECOMMENDATIONS: Patient will benefit from home health PT services in order to progress mobility level using least restrictive assistive ambulatory device, assess home safety, identify additional equipment needs, and establish a functional maintenance program that will increase ability of patient to remain at home. TREATMENT CODE/TIME: 66719 x 55 minutes beginning at 10:03 AM.
[2019-10-09] MEDS: Acetaminophen 325 MG TAB 650 MG PO ×2 (08:46→18:10)
[2019-10-09] MEDS: Finasteride 5 MG TAB PO (08:46)
[2019-10-09] MEDS: Magnesium Gluconate 500 MG TAB PO (08:47)
[2019-10-09] MEDS: Tamsulosin 0.4 MG CAPCR PO ×2 (08:47→19:51)
[2019-10-09] MEDS: amLODIPine 5 MG TAB 10 MG PO (08:47)
[2019-10-09] MEDS: Normal Saline Flush 10 ML SYR 20 ML IVP ×2 (08:49→19:51)
[2019-10-09] MEDS: Lidocaine 5% Patch 1 PATCH TP (08:49)
[2019-10-09] MEDS: Ondansetron O.D.T. 4 MG TABEF PO ×2 (11:57→22:30)
--- NOTE | 2019-10-09 13:13 | W.NUTRFU ---
Date of service: 10/09/19 Time of Service: 13:13 Nutritional Follow up NOTE: Willy is not at risk for nutritional decline. Continues on regular diet with average intake (75-100%), weight stable, BS adequately controlled. Will be available prn. Time Spent in Nutritional Counseling and Treatment: 0 time spent face to face
[2019-10-09 15:16] VITALS: BP 105/57; PULSE 86; RESP 18; TEMP 36.6; O2SAT 97
--- NOTE | 2019-10-09 18:35 | NUR.NOTE ---
Nursing Note: Pt really anxious today regarding the discomfort to his abdomen. multiple reports of feeling like his bladder is not emptying, assessed bladder fullness with a bladder scan, the highest result of the day was 115mL. PRN zofran, maalox, APAP all given for comfort, with some effect. Pt coached to deep breath and relax. Pt verbalizes he knows that he needs to do that. Pt had 2 episodes of diarrhea all day. Contact precautions maintained for Cdiff positive results.
[2019-10-09] MEDS: Famotidine 20 MG TAB PO (22:30)
[2019-10-09 22:34] VITALS: BP 102/51; PULSE 77; RESP 18; TEMP 36.9; O2SAT 95
[2019-10-10] MEDS: metroNIDAZOLE 500 MG TAB PO ×2 (01:21→07:59)
[2019-10-10] MEDS: ceFAZolin 2 GM/50 ML BAG IVPB ×3 (01:21→18:18)
[2019-10-10] MEDS: Levothyroxine 25 MCG TAB PO (06:50)
[2019-10-10 07:28] VITALS: BP 117/49; PULSE 86; RESP 18; TEMP 36.5; O2SAT 97
[2019-10-10] MEDS: Tamsulosin 0.4 MG CAPCR PO ×2 (07:59→20:24)
[2019-10-10] MEDS: Ondansetron O.D.T. 4 MG TABEF PO ×2 (07:59→16:53)
[2019-10-10] MEDS: Acetaminophen 325 MG TAB 650 MG PO ×2 (07:59→16:53)
[2019-10-10] MEDS: Finasteride 5 MG TAB PO (07:59)
[2019-10-10] MEDS: amLODIPine 5 MG TAB 10 MG PO (07:59)
[2019-10-10] MEDS: Magnesium Gluconate 500 MG TAB PO (07:59)
[2019-10-10] MEDS: Normal Saline Flush 10 ML SYR 20 ML IVP ×2 (08:00→20:25)
[2019-10-10] MEDS: Lidocaine 5% Patch 1 PATCH TP (08:07)
[2019-10-10] MEDS: Normal Saline Flush 10 ML SYR IVP ×2 (11:05→18:19)
[2019-10-10] MEDS: Mylanta Suspension 30 ML CUP PO ×2 (11:05→18:18)
--- NOTE | 2019-10-10 12:11 | PT.INTREAT ---
Date of service: 10/10/19 Time of Service: 11:25 PT Notes Visit Reasons: MSSA BACTEREMIA, LUMBAR DISCITIS Inpatient Physical Therapy Treatment Note Date: 10/10/2019 PRECAUTIONS: Contact precautions for C. difficile infection. Fall. Standard. Activity as tolerated. SUBJECTIVE: Dawit notes that he feels pretty good today and has already done his exercises on his own this morning. He notes improvements in his balance as well as his strength. OBJECTIVE General Observation: IV access in right UE. R-sided torticollis (acquired?). L genu varum.. Mental Status: Alert and oriented as to person, place, time Pain: Declines pain BED MOBILITY/TRANSFERS Rolling L/R: Independent Supine-sit: Independent Sit-supine: Independent Sit-stand: Independent Stand-sit: Independent Bed-Chair: Independent Chair-bed: Independent GAIT Assistive Device: FWW Weight bearing: FWB Assist: Supervision with hallway ambulation. Distance: 600 feet pre balance exercises, 600 ft post balance exercises Deviation: Chayo improved. Posterior sway x 2 but no LOB. NEUROMUSCULAR RE-ED: Patient completed unsupported heel raise x15 reps. Patient completed sit to stand transfers with arms across chest x15 reps. Patient completed sidestepping 5 times right/left 5 steps each, backwards walking 5?5 steps each, lateral step over 4 inch step 10 times each direction, forward step up on 4 inch step x10 right/left, and crossover step x5 times. Needed hand-held assist with crossover steppage. Assessment: Patient needed less encouragement today. Endurance steadily improving. Able to advance balance activities. Plan of Care/Treatment Plan: 1x/day, 7 days/week x 1 week. Continue with Physical Therapy intervention for strengthening, bed mobility, transfers, gait, stairs, balance training, use of assistive device. DISCHARGE RECOMMENDATIONS: Patient will benefit from home health PT services in order to progress mobility level using least restrictive assistive ambulatory device, assess home safety, identify additional equipment needs, and establish a functional maintenance program that will increase ability of patient to remain at home. TREATMENT CODE/TIME: [id number] [id number] 30 minutes 11:25 AM
[2019-10-10 15:57] VITALS: BP 122/66; PULSE 76; RESP 18; TEMP 36.7; O2SAT 99
[2019-10-10 22:21] VITALS: BP 123/61; PULSE 77; RESP 18; TEMP 36.7; O2SAT 98
[2019-10-10] MEDS: Famotidine 20 MG TAB PO (22:50)
[2019-10-11] MEDS: Mylanta Suspension 30 ML CUP PO ×3 (03:03→15:58)
[2019-10-11] MEDS: Ondansetron O.D.T. 4 MG TABEF PO ×3 (03:03→22:30)
[2019-10-11] MEDS: Normal Saline Flush 10 ML SYR IVP ×3 (03:04→13:13)
[2019-10-11] MEDS: ceFAZolin 2 GM/50 ML BAG IVPB ×3 (03:04→18:05)
[2019-10-11] MEDS: Levothyroxine 25 MCG TAB PO (06:04)
[2019-10-11 07:55] VITALS: BP 115/56; PULSE 74; RESP 17; TEMP 37.2; O2SAT 98
[2019-10-11] MEDS: Lidocaine 5% Patch 1 PATCH TP (08:21)
[2019-10-11] MEDS: Normal Saline Flush 10 ML SYR 20 ML IVP ×2 (08:24→19:27)
[2019-10-11] MEDS: Tamsulosin 0.4 MG CAPCR PO ×2 (08:24→19:25)
[2019-10-11] MEDS: Magnesium Gluconate 500 MG TAB PO (08:24)
[2019-10-11] MEDS: Finasteride 5 MG TAB PO (08:24)
[2019-10-11] MEDS: amLODIPine 5 MG TAB 10 MG PO (08:24)
[2019-10-11] MEDS: Acetaminophen 325 MG TAB 650 MG PO ×2 (08:24→15:58)
--- NOTE | 2019-10-11 10:50 | PT.INTREAT ---
Date of service: 10/11/19 Time of Service: 09:45 PT Notes Visit Reasons: MSSA BACTEREMIA, LUMBAR DISCITIS Inpatient Physical Therapy Treatment Note Date: October 11, 2019 PRECAUTIONS: Contact precautions for C. difficile infection. Fall. Standard. Activity as tolerated. SUBJECTIVE: Dawit notes that he just does not feel as strong today however will do the best that he can. He has completed his exercises in room already this morning without difficulty. He reports that he did not get dressed for he just doesn't feel up to it. OBJECTIVE General Observation: IV access in right UE. R-sided torticollis (acquired?). L genu varum. Pain patch on posterior neck Mental Status: Alert and oriented as to person, place, time Pain: Declines pain BED MOBILITY/TRANSFERS Rolling L/R: Independent Supine-sit: Independent Sit-supine: Independent Sit-stand: Independent Stand-sit: Independent Bed-Chair: Independent Chair-bed: Independent GAIT Assistive Device: FWW Weight bearing: FWB Assist: Supervision with hallway ambulation. Distance: 600 feet pre balance exercises, 600 ft post balance exercises Deviation: Chayo improved. No LOB. NEUROMUSCULAR RE-ED: Patient completed unsupported heel raise x15 reps. Patient completed sit to stand transfers with arms across chest x15 reps. Patient completed sidestepping 5 times right/left 5 steps each, backwards walking 5?5 steps each, forward step up on 4 inch step x10 right/left. Assessment: Patient needed less encouragement today. Endurance steadily improving. Able to advance balance activities. Plan of Care/Treatment Plan: 1x/day, 7 days/week x 1 week. Continue with Physical Therapy intervention for strengthening, bed mobility, transfers, gait, stairs, balance training, use of assistive device. DISCHARGE RECOMMENDATIONS: Patient will benefit from home health PT services in order to progress mobility level using least restrictive assistive ambulatory device, assess home safety, identify additional equipment needs, and establish a functional maintenance program that will increase ability of patient to remain at home. TREATMENT CODE/TIME: 31568o6 [id number] 30 minutes 09:45 AM
[2019-10-11 15:20] VITALS: BP 104/57; PULSE 82; RESP 18; TEMP 36.7; O2SAT 94
[2019-10-11] MEDS: Famotidine 20 MG TAB PO (22:31)
[2019-10-11 23:30] VITALS: BP 134/70; PULSE 69; RESP 17; TEMP 36.7; O2SAT 96
[2019-10-12] VITALS (9 sets, daily range): BP systolic 116–156; BP diastolic 55–67; PULSE 72–84; RESP 16–19; TEMP 36.1–37.3; O2SAT 96–100
[2019-10-12] MEDS: ceFAZolin 2 GM/50 ML BAG IVPB ×3 (02:10→18:24)
[2019-10-12] MEDS: Levothyroxine 25 MCG TAB PO (06:15)
--- NOTE | 2019-10-12 07:40 | HOME_ITS ---
Home Ventilator Equipment Home care company [employer] Reason: Obstructive Sleep Apnea Make: ResMed Model: AirSense 10 Mask type: Nasal pillows Mask size: Large Mode: CPAP Settings: Auto-titrate Min 4/ Max 20 on RA Oxygen bleed in (lpm): Condition: Good Date last checked: 10/12/19 Year of last sleep study: Compliance Daily Comments: Pt had two sleep studies done in [facility] & results are not in Med Records
--- NOTE | 2019-10-12 07:53 | OT.INPN ---
Date of service: 10/12/19 Time of Service: 07:25 Occupational Therapy Notes Occupational Therapy Inpatient Progress Note Date: 10/12/19 Dates of Service: 10/01/19-10/12/19 Referring Doctor:Ralph Brito MD OT Orders: Non-Urgent Precautions: Fall, Standard, DNR/DNI PATIENT PROFILE/ADMITTING DIAGNOSIS: Pt is a 74-year-old male who presented to the ER on 09/21/19 via EMS with chief complaints of generalized weakness that started 2 days prior to admission that has resulted to a fall on his way to his bathroom in his apartment and a left abdominal discomfort. He states that he stayed on the floor and continued to attempt to get up for hours which made him feel more weak and tired. Patient is admitted with dx of pneumonia with MSSA bacteremia, acute rhabdomyolysis, increased opponent, back pain with question of vertebral osteomyelitis or discitis, neck pain, transaminitis, and ambulatory dysfunction. He was transitioned to [facility] rehabilitation status and consulted for Occupational Therapy for assessment of functional (I) in regards to his ADL/IADL routines. Progress note is due today with updates to pt's progressions since being admitted to [facility], please refer to details below. Past Medical History- Medical History (Updated 09/22/19 @ 10:34 by Shi Alonzo MD) Erectile dysfunction (Inactive) Surgical History (Updated 09/22/19 @ 10:32 by Shi Alonzo MD) S/P left inguinal hernia repair (Acute) Social History/Home Situation: Pt lives alone in an apartment in the [facility] building. He states that his [place]reen recently and he came to [place] which he speaks very highly of. He notes that his apartment is of good size. He drives at baseline and reports that he is totally (I). He has a niece and nephew which he stays in close contact with and they (A) as needed. He has a tub shower with no grab bars and is interested in having a shower seat for safety. He has an elevator from the basement to his floor where he does laundry. He is (I) with meal prep and cooking at baseline. Equipment owned/DME: [employer]LE[facility] Silva SUBJECTIVE: Pt was at toilet when OT arrived. He was agreeable to OT session and notes that he is trying to establish a routine to be more consistent. He was eager to get to his chair this morning and wait for breakfast to come which he states he can kind of taste now and feels that he is getting better. OBJECTIVE: General Observation: Pleasant, able to answer questions appropriately, IV not connected in (R) UE although pt still receiving ABX daily. Pt reports that next month is March multiple times throughout session. He then states, I don't know why I keep saying March sometimes I just say things. Mental Status: A&Ox3 Pain: no c/o pain ROM: RUE AROM WFL L UE AROM WFL STRENGTH: RUE 5/5 throughout LUE 5/5 throughout SENSATION: Intact (B) UE FUNCTIONAL MOBILITY/ADLS: Transfers with FWW Sit-Stand (S) Stand-sit (S) Bed-Chair (S) Chair to window (S) Picking up shoes from beside bed (S) BATHING Sitting in chair with max (A) Set up, pt was (I) with (B) UE, (B) LE and jennifer area. DRESSING Dressing UE (I) with [facility] gojasen and cory valenzuela vc for t-shirt donning with front and back of shirt Dressing LE In standing (I) with donning underwear. Pt noticed he needed to sit transitioned to sitting position and was able to (I) don his pants, socks and shoes. GROOMING NT TOILETING On toilet (I) with FWW close by for stability as needed. Able to perform clothing adjustments (I) and toileting hygiene. EATING Sitting in chair (I) with opening and closing containers, no issues with swallowing and good use of utensils as needed. (I) with food to mouth transalation. BALANCE: Static sitting Normal Dynamic Sitting Normal Static Standing Normal Dynamic Standing Good SPECIAL TESTS: Daily Activity Limitations Standardized Measure [] [facility] AM -PAC ?6 clicks? Daily Activity Inpatient Short Form: Raw score: 22, CMS score 25.80% INFORMED CONSENT/EDUCATION: Pt instructed in purpose of OT Consult and plan of care. ASSESSMENT: Patient is a 74-year-old male referred to occupational therapy services with diagnosis of pneumonia with MSSA bacteremia, acute rhabdomyolysis, increased opponent, back pain with question of vertebral osteomyelitis or discitis, neck pain, transaminitis, and ambulatory dysfunction. Pt has been receiving skilled Occupational Therapy services since 10/01/19 and has made significant improvements in his functional (I) in ADL/IADLs. OT has progressed pts bathing goal to be performed in shower which he will need to be able to demonstrate in order to perform his bathing safely in the home setting. OT will continue to progress pt towards this goal and determine based on pts performance if any additional DME is needed. Please refer to recommendations below. GOALS 1. Transfers (I) with LRD- met 2. Dressing (I) in seated position- met 3. Bathing (I) in shower- progressing towards 4. Toileting (I) on toilet- met 5. Eating (I)- met 6. Grooming routine standing at sink (I)- progressing towards *goal 3 has been modified at this time for bathing in the shower. PLAN OF CARE/TREATMENT PLAN: 1x/day, 5 days/ week x 1week Initiate Occupational Therapy Services for bathing, dressing, grooming, toileting, eating, transfer training. DISCHARGE RECOMMENDATIONS OT recommends that pt return home when medically cleared per MD. OT recommends that pt have a shower seat to increase his (I) and safety in his bathing routine due to decreased standing tolerance and functional activity tolerance. TREATMENT TIME/MINUTES/CODES [id number], 25 minutes Jasmyn Grewal OTR/[facility]
[2019-10-12] MEDS: Finasteride 5 MG TAB PO (08:08)
[2019-10-12] MEDS: amLODIPine 5 MG TAB 10 MG PO (08:08)
[2019-10-12] MEDS: Lidocaine 5% Patch 1 PATCH TP (08:08)
[2019-10-12] MEDS: Magnesium Gluconate 500 MG TAB PO (08:08)
[2019-10-12] MEDS: Normal Saline Flush 10 ML SYR 20 ML IVP ×2 (08:09→19:55)
[2019-10-12] MEDS: Tamsulosin 0.4 MG CAPCR PO ×2 (08:09→19:55)
--- NOTE | 2019-10-12 09:37 | RESPIRATORY ---
Spoke with patient concerning CPAP machine. Pt stated had a sleep study done in [facility] and stated he's used a machine at least 10 yrs now. Once, he moved to [place] he received a machine from [facility] as his previous one was not working properly. Currently, there's not record of sleep apnea in his medical record but patient stated [facility] should have a record of his past sleep studies results.
[2019-10-12] MEDS: Normal Saline Flush 10 ML SYR IVP (10:05)
[2019-10-12] MEDS: Ondansetron O.D.T. 4 MG TABEF PO (10:18)
[2019-10-12] MEDS: Acetaminophen 325 MG TAB 650 MG PO ×3 (10:18→22:30)
--- NOTE | 2019-10-12 11:12 | PT.INTREAT ---
Date of service: 10/12/19 Time of Service: 11:12 PT Notes Visit Reasons: MSSA BACTEREMIA, LUMBAR DISCITIS Inpatient Physical Therapy Treatment Note Date: 10/12/2019 PRECAUTIONS: Contact precautions for C. difficile infection. Fall. Standard. Activity as tolerated. SUBJECTIVE: Dawit expresses how much he wanted to be independent in the hallways with a walker pretty soon. He verbalizes that he is becoming impatient with everything that has happened since he was here. He is alos frustrated with how much his tummy is pressing on his prostate. He states that he is talking with his counselor every other Saturday now and stresses that said conversations have been helping him a lot. OBJECTIVE General Observation: IV access in right UE. R-sided torticollis (acquired?). L genu varum. Pain patch on posterior neck Mental Status: Alert and oriented as to person, place, time Pain: None reported BED MOBILITY/TRANSFERS Rolling L/R: Independent Supine-sit: Independent Sit-supine: Independent Sit-stand: Independent Stand-sit: Independent Bed-Chair: Independent Chair-bed: Independent GAIT Assistive Device: FWW Weight bearing: FWB Assist: Supervision with hallway ambulation. Distance: 260 feet Deviation: Chayo improved. No LOB. No posterior sway. No LOB. No comments about his shoes. THERA EX: With 4 pound weights on bilateral ankles, patient tolerated step ups with one hand holding onto a stair rail x20. He also tolerated sidesteps with 2 hands holding onto a stair rail using 4 inch step to 15 times the right and 15 times to the left. Assessment: Patient is reduced to 3 times a week beginning this week in order to assess for the stability of gains achieved in therapy. He remains in need of supervision for hallway ambulation using front wheeled walker at this time. He is agreeable to progressing exercise intensity this week with increase in repetition for room exercises to 15 ?2 sets and with therapy exercises using ankle weights. We will coordinate review of goals with care management in order to facilitate return home once antibiotic treatment is completed. Plan of Care/Treatment Plan: 1x/day, 3 days/week x 2 weeks. Continue with Physical Therapy intervention for strengthening, bed mobility, transfers, gait, stairs, balance training, use of assistive device. DISCHARGE RECOMMENDATIONS: Patient will benefit from home health PT services in order to progress mobility level using least restrictive assistive ambulatory device, assess home safety, identify additional equipment needs, and establish a functional maintenance program that will increase ability of patient to remain at home. TREATMENT CODE/TIME: 15363 x 31 minutes beginning at 11:12 AM.
[2019-10-12] MEDS: Cholestyramine/Aspartame PKT 1 EACH PO ×2 (12:00→18:38)
--- NOTE | 2019-10-12 14:40 | DI.CT_ITS ---
EXAM: CT HEAD CERVICAL SPINE WO CLINICAL HISTORY: trauma. TECHNIQUE: Imaging Protocol: Axial computed tomography images with coronal and sagittal reformatted images were created and reviewed COMPARISON: CT CT CERVICAL SPINE WO from 09/23/2019 FINDINGS: CT Head: Ventricles and Extra axial spaces: Normal in size and morphology for the patient's age. Hemorrhage: None. Cerebral parenchyma: Normal. Midline shift: None. Brainstem/Cerebellum: Normal. Calvarium: Normal. Visualized Paranasal sinuses/Mastoids: Clear. Soft Tissues: Unremarkable. CT Cervical Spine: Bones: No acute fracture or subluxation. Moderately severe degenerative changes are present throughou t the cervical spine. There is unchanged reversal of the normal cervical lordosis centered at C3-C4. Soft Tissues: Unremarkable. Lung Apices: Clear. IMPRESSION: 1. No acute intracranial process. 2. No acute fracture or subluxation in the cervical spine. RADIATION DOSE DELIVERED: DATA REPOSITORY: All CT scans at this facility are submitted to the National Radiology Data Registry (NRDR) Dose Index Registry (DIR) with the [employer] (ACR). RADIATION OPTIMIZATION: All CT scans at this facility use at least one of these dose optimization te chniques: automated exposure control; mA and/or kV adjustment per patient size (includes targeted exa ms where dose is matched to clinical indication); or iterative reconstruction.
--- NOTE | 2019-10-12 14:56 | PGE_ITS ---
Date of Service Date of service: 10/12/19 Time of Service: 14:56 Subjective Subjective Patient reports: other Interval history since last seen: Called to patients room due to fall approx 1440. Patient on floor with gash to left side of head above eyebrow. Lying on the ground. Denies dizziness, lightheadedness, syncope. 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 C/o neck and head pain. C-collar immediately applied. Stat CT of head and neck revealing no bleeding, or fx to c spine or neck. Able to move all 4 extremities. PERRLA< Neuros intact. C-collar taken off. Patient does c/o increased pain to head, small thin gash to head cleaned with sterile water and dermabond will give tramadol PRN for pain. Discussed with patient about side effects. Continue to monitor neural status. He denies CP, SOB , N/v/d dizziness, numbness. Objective Objective Clinical Data: Vital Signs Temperature 36.1 C L 10/12/19 14:51 Temperature Source Tympanic 10/12/19 14:51 Pulse 75 10/12/19 14:51 Pulse Rhythm Regular 10/12/19 09:54 Respiratory Rate 16 10/12/19 14:51 Respiratory Effort Non-Labored 10/12/19 09:54 Respiratory Depth Normal 10/12/19 09:54 Respiratory Pattern Normal 10/12/19 09:54 Blood Pressure 152/67 H 10/12/19 14:51 Pulse Oximetry 100 10/12/19 14:51 Oxygen Delivery Method Room Air 10/12/19 14:51 Oxygen Flow Rate 0 10/12/19 14:51 Fraction of Inspired Oxygen (FIO2) 21 10/12/19 09:34 Pain Level 5 10/12/19 14:51 Comment 10/12/19 14:41 Intake & Output 10/11/19 10/12/19 10/12/19 23:59 11:59 23:59 Intake Total 550 / 600 360 / 600 240 / 600 Output Total 475 / 1275 1300 / 1700 400 / 1700 Balance 75 / -675 -940 / -1100 -160 / -1100 Weight 74.1 kg Intake: IV 100 / 150 120 / 120 Oral 450 / 450 240 / 480 240 / 480 Output: Urine 475 / 1275 1300 / 1700 400 / 1700 Other: Urine Color Yellow Yellow Light Analilia Urine Appearance Clear Clear Clear Stool Size Moderate Moderate Stool Characteristics Liquid Liquid Brown Brown Green Green Voiding Methods Toilet Laboratory Results WBC 9.29 k/cumm (4.4-10.8) 10/04/19 06:13 RBC 3.06 m/cumm (4.50-6.00) L 10/04/19 06:13 Hgb 9.4 g/dL (13.5-17.5) L 10/04/19 06:13 Hct 29.1 % (40.0-50.0) L 10/04/19 06:13 MCV 95.1 fL (80-95) H 10/04/19 06:13 MCH 30.7 pg (27.0-33.0) 10/04/19 06:13 MCHC 32.3 g/dL (32.0-36.0) 10/04/19 06:13 RDW 13.7 % (11.8-14.1) 10/04/19 06:13 Plt Count 555 x1000/uL (130-400) H 10/04/19 06:13 MPV 8.4 fL (8.0-11.0) 10/04/19 06:13 Immature Gran % 1.2 % 10/04/19 06:13 Neutrophils % 77.0 10/04/19 06:13 Lymphocytes % 11.4 10/04/19 06:13 Monocytes % 9.1 10/04/19 06:13 Eosinophils % 1.1 10/04/19 06:13 Basophils % 0.2 10/04/19 06:13 Absolute Neutrophils 7.15 k/cumm (1.2-6.7) H 10/04/19 06:13 Absolute Lymphocytes 1.06 k/cumm (1.2-3.4) L 10/04/19 06:13 Absolute Monocytes 0.85 k/cumm (0.11-0.7) H 10/04/19 06:13 Absolute Eosinophils 0.10 k/cumm (0.0-0.7) 10/04/19 06:13 Absolute Basophils 0.02 k/cumm (0.0-0.2) 10/04/19 06:13 RBC Morphology See below 10/04/19 06:13 Hypochromasia 1+ 10/04/19 06:13 Anisocytosis 1+ 10/04/19 06:13 Sodium 134 mmol/L (136-145) L 10/04/19 06:13 Potassium 4.9 mmol/L (3.5-5.1) 10/04/19 06:13 Chloride 102 mmol/L (98-107) 10/04/19 06:13 Carbon Dioxide 29.3 mmol/L (21.0-32.0) 10/04/19 06:13 Anion Gap 2.7 mmol/L (3-11) L 10/04/19 06:13 BUN 19 mg/dL (7-18) H 10/04/19 06:13 Creatinine 1.06 mg/dL (0.70-1.30) 10/04/19 06:13 Estimated GFR/1.73 m2 >= 60.00 (mL/min/1.73m2) 10/04/19 06:13 Glucose 99 mg/dL (74-106) 10/04/19 06:13 Calcium 9.2 mg/dL (8.5-10.1) 10/04/19 06:13 Magnesium 1.9 mg/dL (1.8-2.4) 10/04/19 06:13 C-Reactive Protein 1.77 mg/dL (0.0-0.3) H 10/04/19 06:13
[2019-10-12] MEDS: Mylanta Suspension 30 ML CUP PO (15:57)
[2019-10-12] MEDS: traMADol 50 MG TAB PO (15:58)
--- NOTE | 2019-10-12 16:09 | NUR.NOTE ---
Nursing Note: Pt has been deemed independent and been doing well with strengthening and balance exercises. Pt had a fall at 1440 in his room, according to pt he was bending over to plug shaver in. As a thud was heard from inside room 210 multiple staff arrived immediately. VS taken and stable. Gauze placed to head which was visualized to be bleeding with a superficial cut to the mid frontal area. Edges well approximated. Pt head and neck immobilized, and a c spine collar was placed, while RN immobilized head during application. CT called to notify pt need for test. Pt was then raised from floor with assist X4, and put on stretcher, with support to the c spine area the entire time. Provider arrived to assess pt, and area cleaned with sterile water and gauze, and glue applied, then left TAMIKO. Pt A&OX3 the entire time. Pt reports mild pain 3-5/10 to the neck/head area. VS taken and charted. Pt with good hand pot fisher, eyes PERRLA. Wiggled fingers, hands, and feet. Pt denies N/V/light headedness, dizziness. Pt able to state exactly what happened, remembered events and denied getting dizzy, or blacking out. Neuro checks were unable to be performed Q 15 minutes R/T pt transferred to CT for scan of head/c spine soon after fall. Results returned soon after pt returned back from test and negative for injury. Collar removed. Pt was given PRN tramadol as per order. Alarms placed on bed for safety and pt educated to cindi aj for assistance.
[2019-10-12] MEDS: Famotidine 20 MG TAB PO (22:30)
[2019-10-13 00:01] VITALS: BP 108/61; PULSE 72; RESP 16; TEMP 36.7; O2SAT 93
[2019-10-13] MEDS: ceFAZolin 2 GM/50 ML BAG IVPB ×3 (02:19→18:02)
[2019-10-13] MEDS: Levothyroxine 25 MCG TAB PO (06:15)
[2019-10-13 07:40] VITALS: BP 114/49; PULSE 67; RESP 18; TEMP 36.1; O2SAT 96
[2019-10-13] MEDS: Tamsulosin 0.4 MG CAPCR PO ×2 (09:07→19:11)
[2019-10-13] MEDS: Finasteride 5 MG TAB PO (09:07)
[2019-10-13] MEDS: Magnesium Gluconate 500 MG TAB PO (09:07)
[2019-10-13] MEDS: Lidocaine 5% Patch 1 PATCH TP (09:07)
[2019-10-13] MEDS: amLODIPine 5 MG TAB 10 MG PO (09:07)
[2019-10-13] MEDS: Normal Saline Flush 10 ML SYR 20 ML IVP ×2 (09:08→22:08)
[2019-10-13] MEDS: Cholestyramine/Aspartame PKT 1 EACH PO ×2 (12:18→20:04)
[2019-10-13 15:10] VITALS: BP 114/67; PULSE 69; RESP 18; TEMP 35.8; O2SAT 98
[2019-10-13] MEDS: Normal Saline Flush 10 ML SYR IVP (18:02)
[2019-10-13] MEDS: Mylanta Suspension 30 ML CUP PO (19:11)
[2019-10-13] MEDS: Ondansetron O.D.T. 4 MG TABEF PO (19:11)
[2019-10-13] MEDS: Famotidine 20 MG TAB PO (22:08)
[2019-10-13 22:25] VITALS: BP 128/54; PULSE 77; RESP 18; TEMP 37.8; O2SAT 96
[2019-10-14] MEDS: Normal Saline Flush 10 ML SYR IVP (02:26)
[2019-10-14] MEDS: ceFAZolin 2 GM/50 ML BAG IVPB ×3 (02:27→18:08)
[2019-10-14] MEDS: Mylanta Suspension 30 ML CUP PO (02:59)
[2019-10-14] MEDS: Levothyroxine 25 MCG TAB PO (06:21)
[2019-10-14 07:57] VITALS: BP 118/58; PULSE 100; RESP 18; TEMP 36.8; O2SAT 99
[2019-10-14] MEDS: Ondansetron O.D.T. 4 MG TABEF PO ×2 (08:24→22:25)
[2019-10-14] MEDS: Normal Saline Flush 10 ML SYR 20 ML IVP ×2 (08:24→20:11)
[2019-10-14] MEDS: Lidocaine 5% Patch 1 PATCH TP (08:25)
[2019-10-14] MEDS: Acetaminophen 325 MG TAB 650 MG PO (09:12)
[2019-10-14] MEDS: amLODIPine 5 MG TAB 10 MG PO (09:12)
[2019-10-14] MEDS: Magnesium Gluconate 500 MG TAB PO (09:12)
[2019-10-14] MEDS: Finasteride 5 MG TAB PO (09:12)
[2019-10-14] MEDS: Tamsulosin 0.4 MG CAPCR PO ×2 (09:13→20:11)
[2019-10-14 09:25] VITALS: BP 124/76; BP 89/53; PULSE 116; PULSE 86
--- NOTE | 2019-10-14 12:32 | OT.INTREAT ---
Date of service: 10/14/19 Time of Service: 07:25 Occupational Therapy Notes Occupational Therapy Inpatient Treatment Note Date: 10/14/19 PRECAUTIONS: Fall, Standard, DNR/DNI SUBJECTIVE: Pt was lying in bed when OT arrived. He states that he is feeling better today. He reports that he had some stomach discomfort last night but states that he is better this morning. OBJECTIVE: PAIN: no c/o pain FUNCTIONAL MOBILITY Rolling L/R: (I) Supine-sit: (I) Sit-stand: (S) Stand-sit: (S) Bed-Chair: (S) BATHING: Pt denies performance this afternoon. DRESSING: Sitting on side of the bed Upper Extremity: (I) with min vc for reaching for shirt from sitting position towards table. Lower Extremity: (I) underwear, pants, socks, shoes TOILETING: Device: toilet Assist: (S) ASSESSMENT/PLAN: No LOB with ADLs this morning. Pt is able to perform most of routine (I) with min vc throughout. He is receptive to performing his ADLs today and he is overall feeling better. TREATMENT CODES/TIME: 90266, 17 minutes (07:25) Jasmyn Grewal, OTR/L [facility]
--- NOTE | 2019-10-14 13:02 | W.PODCONSULT ---
Date of service: 10/14/19 Time of Service: 13:02 History of Present Illness History of Present Illness Chief Complaint: ingrowning toenaills and dry skin Narrative: 74-year-old male seen in his room, very pleasant talkative concerned about elongated and ingrowing great toenails and dry skin. He indicates that his legs have become kind of weak and he has a tendency to fall. Otherwise, he has no complaints of his lower extremities. [facility] Medical History BPH (benign prostatic hyperplasia) (Chronic) Conductive hearing loss (Acute) Epidural abscess (Acute ~10/09/13) Erectile dysfunction (Inactive) History of Clostridioides difficile colitis (Acute ~10/2013) History of small bowel obstruction (Acute 07/12/15) MSSA (methicillin susceptible Staphylococcus aureus) septicemia (Acute 10/09/13) in setting of ruputured appendicitis and found to have disciitis epidural abscess, [facility], [place], [place]; Dr. Casey Mixon, infectious disease Osteomyelitis of vertebra of thoracolumbar region (Acute ~10/09/13) treated w/ 6 weeks of Ancef; seen by Dr. Casey Mixon, infectious disease, [place], [place]; completed treatment 11/20/2013; complicated by C. difficile colitis Panic anxiety syndrome (Acute) Sensorineural hearing loss (Acute) Surgical History H/O sinus surgery (Acute) History of bilateral cataract extraction (Acute) History of cholecystectomy (Chronic ~1998) History of tonsillectomy and adenoidectomy (Acute) S/P laparoscopic appendectomy (Acute 10/09/13) S/P left inguinal hernia repair (Acute) Social History Smoking/Tobacco Use Status: Former Tobacco Use Alcohol Intake: never Drug use: Never Substance use type: does not use Do you feel safe at home: Yes Do you feel safe in your relationship?: Yes Exam Narrative Exam Narrative: DP and PT pulses are manually palpable at the ankles graded plus 1 out of 4 bilaterally. The lower refill time is under 3 seconds without edema. His calves are soft to palpation no findings of DVT. Derm exam: Toenails are opaque, yellowed with crumbly subungual debris, elongated with the hallux nails also showing some mild crypt ptosis. No active drainage is appreciated coming from any of the nail grooves. Skin is thin, atrophic with an abrasion noted dorsally over the left second PIPJ. The abrasion is scabbed over at this time and there is no active signs of drainage or infection. Scale is appreciated over the medial aspects of the first MPJs, medial lateral aspects of both heels and along the plantar aspect lateral column of both feet. Muscle groups are 5 out of 5 bilaterally Skeletal exam fails to reveal any joint inflammations or gross deformities either foot or ankle. Neurological exam: Toes were downgoing did not detect any deficits. Impressions: Onychocryptosis with probable onychomycosis Xerosis Deconditioning Plan: Atraumatically debrided all nails 1 through 5 bilaterally to patient tolerance. Modified slant back avulsion was performed to the medial lateral borders of both great toenails. Marked relief of tenderness appreciated upon debridement. Reduced all scale from both feet to patient tolerance. Moisturizing creams were noted at bedside and encouraged twice daily application for dry skin. The abrasion over the left second toe has scabbed over and I see no immediate need for any further care. Appreciate the consultation will be happy to follow-up if any new problems arise. Results Last Vital Signs Temp 36.8 C 10/14/19 07:57 Pulse 86 10/14/19 09:25 Resp 18 10/14/19 07:57 BP 124/76 10/14/19 09:25 Pulse Ox 99 10/14/19 07:57 Labs Result diagrams: 10/04/19 06:13 10/04/19 06:13
[2019-10-14 15:39] VITALS: BP 134/86; PULSE 79; RESP 18; TEMP 36.1; O2SAT 96
[2019-10-14 20:20] VITALS: BP 121/61; PULSE 75; RESP 18; TEMP 36; O2SAT 96
[2019-10-14] MEDS: Famotidine 20 MG TAB PO (21:26)
[2019-10-15] MEDS: ceFAZolin 2 GM/50 ML BAG IVPB (01:33)
[2019-10-15] MEDS: Normal Saline Flush 10 ML SYR IVP ×2 (01:51→06:30)
[2019-10-15] MEDS: Ondansetron 4 MG/2 ML VIAL IVP ×2 (01:51→06:30)
[2019-10-15 04:43] VITALS: BP 113/66; PULSE 84; RESP 18; TEMP 37.5; O2SAT 95
[2019-10-15] MEDS: Lactated Ringers 1,000 ML 125 ML IV (05:35)
[2019-10-15 05:42] LABS: HCT 35.5 % (40.0-50.0); Mean Corp. HGB Concentration 33.8 g/dL (32.0-36.0); Mean Corpuscular Hemoglobin 31.3 pg (27.0-33.0); Mean Corpuscular Volume 92.7 fL (80-95); Mean Platelet Volume 8.4 fL (8.0-11.0); Platelet Count 587 x1000/uL (130-400); RBC 3.83 m/cumm (4.50-6.00); RBC Distribution Width 12.9 % (11.8-14.1); White Blood Cell Count 13.11 k/cumm (4.4-10.8)
--- NOTE | 2019-10-15 05:49 | DI.RAD_ITS ---
EXAM: 2D digital imaging was performed. CLINICAL HISTORY: PROJECTILE VOMITING. COMPARISON: No exams were available for comparison TECHNIQUE: Supine views of the abdomen performed. FINDINGS: BOWEL GAS PATTERN: Mild to moderately distended loops of small bowel present. Air is noted within th e rectum. Findings may represent an ileus versus possible early small bowel obstruction. CALCIFICATIONS: No radiopaque calcifications. OSSEOUS STRUCTURES: Degenerative changes seen in the spine. OTHER FINDINGS: Lung bases appear clear. The distal aspect of a catheter is seen at the upper film o verlying the location of the right atrium. IMPRESSION: 1. Dilated loops of small bowel which may reflect an ileus or possible early small bowel obstruction. 2. No radiopaque calculi. DATA REPOSITORY: RADIATION DOSE DELIVERED:
--- NOTE | 2019-10-15 05:51 | PGE_ITS ---
Date of Service Date of service: 10/15/19 Time of Service: 05:51 Assessment and Plan Assessment and plan (1) Vomiting: Status: Acute Assessment and plan: Vomiting. Unclear etiology at present. Possibly related to the C diff, perhaps Vanco side effect, or other source. For now will check CBC, KUB and place NPO with IVF, and continue orn anti-emetics. Will change H2 to IV. Subjective Subjective Interval history since last seen: Called to assess vomiting. Case reviewed, dave ent here with MSSA bacteremia on 6 week course Ancef, complicated by C diff, for which he is on PO Vanco. Several episodes vomiting overnight, along with continued diarrhea. Denies abd pain. Vomitus reported to have been brown, though not of coffee-ground appearance; disposed of before gastroccult performed. Patient bstqatesb heb feels fine at present, and again denies abd pain. On exam BP 113/66, p 84, RR 18, T 37.5. Abdomen shows +BS, is soft and non- tender. Exam Narrative Exam Narrative: see above Objective Objective Clinical Data: Abnormal lab results 10/15/19 Range/Units 05:33 WBC 13.11 H (4.4-10.8) k/cumm RBC 3.83 L (4.50-6.00) m/cumm Hgb 12.0 L (13.5-17.5) g/dL Hct 35.5 L (40.0-50.0) % Plt Count 587 H (130-400) x1000/uL Vital Signs Temperature 37.5 C 10/15/19 04:43 Temperature Source Tympanic 10/15/19 04:43 Pulse 84 10/15/19 04:43 Pulse Rhythm Regular 10/15/19 02:00 Respiratory Rate 18 10/15/19 04:43 Respiratory Effort Non-Labored 10/15/19 02:00 Respiratory Depth Normal 10/15/19 02:00 Respiratory Pattern Normal 10/15/19 02:00 Blood Pressure 113/66 10/15/19 04:43 Pulse Oximetry 95 10/15/19 04:43 Oxygen Delivery Method Room Air 10/15/19 04:43 Oxygen Flow Rate 0 10/15/19 04:43 Fraction of Inspired Oxygen (FIO2) 21 10/14/19 13:01 Pain Level 0 10/15/19 04:43 Comment 10/14/19 09:25 Intake & Output 10/14/19 10/14/19 10/15/19 11:59 23:59 11:59 Intake Total 100 / 700 600 / 700 70 / 70 Output Total 700 / 1300 600 / 1300 150 / 150 Balance -600 / -600 0 / -600 -80 / -80 Weight 75.4 kg Intake: IV 100 / 170 70 / 170 70 / 70 Oral 530 / 530 Output: Urine 700 / 1100 400 / 1100 Emesis 200 / 200 150 / 150 Other: Urine Color Yellow Yellow Urine Appearance Clear Clear Clear Urine Odor Foul Stool Size Small Small Large Stool Characteristics Liquid Soft Liquid Emesis Description Undigested Food Retching Voiding Methods Toilet Toilet Laboratory Results WBC 13.11 k/cumm (4.4-10.8) H 10/15/19 05:33 RBC 3.83 m/cumm (4.50-6.00) L 10/15/19 05:33 Hgb 12.0 g/dL (13.5-17.5) L 10/15/19 05:33 Hct 35.5 % (40.0-50.0) L 10/15/19 05:33 MCV 92.7 fL (80-95) 10/15/19 05:33 MCH 31.3 pg (27.0-33.0) 10/15/19 05:33 MCHC 33.8 g/dL (32.0-36.0) 10/15/19 05:33 RDW 12.9 % (11.8-14.1) 10/15/19 05:33 Plt Count 587 x1000/uL (130-400) H 10/15/19 05:33 MPV 8.4 fL (8.0-11.0) 10/15/19 05:33 Immature Gran % 1.2 % 10/04/19 06:13 Neutrophils % 77.0 10/04/19 06:13 Lymphocytes % 11.4 10/04/19 06:13 Monocytes % 9.1 10/04/19 06:13 Eosinophils % 1.1 10/04/19 06:13 Basophils % 0.2 10/04/19 06:13 Absolute Neutrophils 7.15 k/cumm (1.2-6.7) H 10/04/19 06:13 Absolute Lymphocytes 1.06 k/cumm (1.2-3.4) L 10/04/19 06:13 Absolute Monocytes 0.85 k/cumm (0.11-0.7) H 10/04/19 06:13 Absolute Eosinophils 0.10 k/cumm (0.0-0.7) 10/04/19 06:13 Absolute Basophils 0.02 k/cumm (0.0-0.2) 10/04/19 06:13 RBC Morphology See below 10/04/19 06:13 Hypochromasia 1+ 10/04/19 06:13 Anisocytosis 1+ 10/04/19 06:13 Sodium 134 mmol/L (136-145) L 10/04/19 06:13 Potassium 4.9 mmol/L (3.5-5.1) 10/04/19 06:13 Chloride 102 mmol/L (98-107) 10/04/19 06:13 Carbon Dioxide 29.3 mmol/L (21.0-32.0) 10/04/19 06:13 Anion Gap 2.7 mmol/L (3-11) L 10/04/19 06:13 BUN 19 mg/dL (7-18) H 10/04/19 06:13 Creatinine 1.06 mg/dL (0.70-1.30) 10/04/19 06:13 Estimated GFR/1.73 m2 >= 60.00 (mL/min/1.73m2) 10/04/19 06:13 Glucose 99 mg/dL (74-106) 10/04/19 06:13 Calcium 9.2 mg/dL (8.5-10.1) 10/04/19 06:13 Magnesium 1.9 mg/dL (1.8-2.4) 10/04/19 06:13 C-Reactive Protein 1.77 mg/dL (0.0-0.3) H 10/04/19 06:13
--- NOTE | 2019-10-15 06:07 | DI.VRAD_ITS ---
PROCEDURE INFORMATION: Exam: XR Abdomen, 1 View Exam date and time: 10/15/2019 5:50 AM Age: 74 years old Clinical indication: Vomiting TECHNIQUE: Imaging protocol: XR of the abdomen. Views: Frontal supine view of the abdomen. 1 View. COMPARISON: No relevant prior studies available. FINDINGS: Moderate to severe dilatation of the visualized bowel loops. Air noted in the rectal vault. No gross free air. Suture line in the right mid abdomen The lung bases are grossly clear. Right-sided IJ central venous catheter in the right atrium IMPRESSION: Developing ileus versus partial small bowel obstruction Dictated and Authenticated by: Conrad Erickson MD. Ordering:JULIO Matthews MD
[2019-10-15] MEDS: Famotidine 20 MG/2 ML VIAL IV (06:47)
[2019-10-15 07:35] LABS: ALT 8 U/L (16-63); AST 24 U/L (15-37); Albumin 2.1 g/dL (3.4-5.0); Alkaline Phosphatase 91 U/L (46-116); Anion Gap 1.5 mmol/L (3-11); BUN 27 mg/dL (7-18); Bilirubin, Total 0.9 mg/dL (0.2-1.0); CO2 32.5 mmol/L (21.0-32.0); CREATININE 2.03 mg/dL (0.70-1.30); Calcium 8.4 mg/dL (8.5-10.1); Chloride 97 mmol/L (98-107); Estimated GFR 32.09 (mL/min/1.73m2); Glucose 158 mg/dL (74-106); Potassium 5.7 mmol/L (3.5-5.1); Sodium 131 mmol/L (136-145); Total Protein 5.7 g/dL (6.4-8.2)
[2019-10-15 07:38] VITALS: BP 123/69; PULSE 85; RESP 20; TEMP 35.9; O2SAT 97
[2019-10-15] MEDS: Lidocaine 5% Patch 1 PATCH TP (07:40)
[2019-10-15] MEDS: Ondansetron O.D.T. 4 MG TABEF PO (07:40)
[2019-10-15 07:45] VITALS: BP 123/70; PULSE 85; RESP 17; TEMP 37.2; O2SAT 98
--- NOTE | 2019-10-15 08:00 | DI.CT_ITS ---
EXAM: CT HEAD - STROKE PROTOCOL CLINICAL HISTORY: acute confusion; s/p fall and closed head injury. TECHNIQUE: Imaging Protocol: Axial computed tomography images with coronal and sagittal reformatted images were created and reviewed COMPARISON: CT CT HEAD CERVICAL SPINE WO from 10/12/2019 FINDINGS: Ventricles and Extra axial spaces: Normal in size and morphology for the patient's age. Hemorrhage: None. Cerebral parenchyma: Areas of decreased attenuation in the white matter are most consistent with smal l vessel ischemic disease. No acute territorial infarct. Midline shift: None. Brainstem/Cerebellum: Normal. Calvarium: Normal. Visualized Paranasal sinuses/Mastoids: Clear. Soft Tissues: Unremarkable. IMPRESSION: No acute intracranial process. RADIATION DOSE DELIVERED: 731.54mGy.cm Total DLP DATA REPOSITORY: All CT scans at this facility are submitted to the National Radiology Data Registry (NRDR) Dose Index Registry (DIR) with the [employer] (ACR). RADIATION OPTIMIZATION: All CT scans at this facility use at least one of these dose optimization te chniques: automated exposure control; mA and/or kV adjustment per patient size (includes targeted exa ms where dose is matched to clinical indication); or iterative reconstruction.
--- NOTE | 2019-10-15 08:20 | SCONE_ITS ---
Date of service: 10/15/19 Time of Service: 08:20 [facility] Medical History BPH (benign prostatic hyperplasia) (Chronic) Conductive hearing loss (Acute) Epidural abscess (Acute ~10/09/13) Erectile dysfunction (Inactive) History of Clostridioides difficile colitis (Acute ~10/2013) History of small bowel obstruction (Acute 07/12/15) MSSA (methicillin susceptible Staphylococcus aureus) septicemia (Acute 10/09/13) in setting of ruputured appendicitis and found to have disciitis epidural abscess, [place], [place]; Dr. Casey Mixon, infectious disease Osteomyelitis of vertebra of thoracolumbar region (Acute ~10/09/13) treated w/ 6 weeks of Ancef; seen by Dr. Casey Mixon, infectious disease, [place], [place]; completed treatment 11/20/2013; complicated by C. difficile colitis Panic anxiety syndrome (Acute) Sensorineural hearing loss (Acute) Surgical History H/O sinus surgery (Acute) History of bilateral cataract extraction (Acute) History of cholecystectomy (Chronic ~1998) History of tonsillectomy and adenoidectomy (Acute) S/P laparoscopic appendectomy (Acute 10/09/13) S/P left inguinal hernia repair (Acute) Social History Smoking/Tobacco Use Status: Former Tobacco Use Alcohol Intake: never Drug use: Never Substance use type: does not use Do you feel safe at home: Yes Do you feel safe in your relationship?: Yes Results Last Vital Signs Temp 35.9 C L 10/15/19 07:38 Pulse 85 10/15/19 07:38 Resp 20 10/15/19 07:38 BP 123/69 10/15/19 07:38 Pulse Ox 97 10/15/19 07:38 Labs Result diagrams: 10/15/19 05:33 10/15/19 07:11 Labs: Laboratory Results - last 24 hr 10/15/19 10/15/19 05:33 07:11 WBC 13.11 H RBC 3.83 L Hgb 12.0 L Hct 35.5 L MCV 92.7 MCH 31.3 MCHC 33.8 RDW 12.9 Plt Count 587 H MPV 8.4 Sodium 131 L Potassium 5.7 H Chloride 97 L Carbon Dioxide 32.5 H Anion Gap 1.5 L BUN 27 H Creatinine 2.03 H Estimated GFR/1.73 m2 32.09 Glucose 158 H Calcium 8.4 L Total Bilirubin 0.9 AST 24 ALT 8 L Alkaline Phosphatase 91 Total Protein 5.7 L Albumin 2.1 L
--- NOTE | 2019-10-15 08:23 | OT.INNT ---
Date of service: 10/15/19 Time of Service: 08:15 Occupational Therapy Notes 10/15/19 OT session on hold today per nursing. Pt is not feeling well and is going down to have some tests performed. OT will attempt to resume OT services tomorrow pending nursing approval. Jasmyn Grewal OTR/[facility]
--- NOTE | 2019-10-15 08:28 | W.PM.DS.N ---
Date of service: 10/15/19 Time of Service: 08:28 DS: Diagnosis Discharge Diagnosis (1) Ileus: Status: Acute Asessment and Plan: Patient will be kept n.p.o. and IV fluids have been started. He will be transferred to acute inpatient status. Surgical consult has been requested with Dr. Mckeon. At this point I am not putting an NG down him as the vomiting has ceased. We will continue to monitor his labs and correct any electrolyte abnormalities. His p.o. Vancomycin will be changed to IV Flagyl (2) Clostridium difficile enterocolitis: Status: Acute Asessment and Plan: As above (3) Vomiting: Status: Acute Asessment and Plan: Will use Zofran for his nausea rather than Phenergan to reduce the risk of acute confusion (4) MSSA bacteremia: Status: Acute Asessment and Plan: Continue Ancef 2 g IV every 8 hours through November 08 (5) Lumbar discitis: Status: Acute Asessment and Plan: Ancef as above. Reimage his lumbar spine with a repeat MRI upon completion of his treatment (6) Essential hypertension: Status: Acute Asessment and Plan: Antihypertensives will be withheld as of yesterday due to marginal blood pressures. We will continue to monitor his blood pressure and reinstitute antihypertensives as needed (7) BPH (benign prostatic hyperplasia): Status: Chronic Asessment and Plan: Monitor urine output and straight cath as needed for high residuals over 500 mL. When he is able to take p.o. we will resume his tamsulosin and Proscar (8) Urinary retention: Status: Acute Asessment and Plan: As above per plan under BPH (9) Acute confusion: Status: Acute Asessment and Plan: Unclear as to the etiology of his acute confusion but in light of his closed head injury 3 days ago where going to get a repeat CT scan of his head to rule out a subdural bleed Discharge Plan Disposition Patient Disposition: [facility] INPATIENT Condition: Deteriorating Discharge Details Reason For Visit: MSSA BACTEREMIA, LUMBAR DISCITIS, C. diff colitis Admit Date/Time: 09/30/19 13:09 Admit Provider: Ralph Brito Attending Provider: Ralph Brito Primary Care Provider: Kai Peter Hospital Course Hospital Course: 74-year-old male who was initially admitted to the hospital for sepsis and was found to have MSSA bacteremia and had acute kidney injury as well as rhabdomyolysis and encephalopathy. See admission H&P for details. 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 CT scan of the chest suggested some mild bibasilar infiltrates but otherwise had no evidence for pneumonia as a source for his MSSA. Eventually MRI scanning of his spine suggested discitis of the L2-L3 and L3-L4 levels. Patient was treated with Ancef 2 g IV every 8 hours and eventually his blood cultures cleared as of September 28, 2019. He was entered into swing bed status on September 30, 2019 for completion of his parenteral antibiotics for his MSSA bacteremia and lumbar discitis. His current hospitalization under swing bed status was complicated by the development of C. difficile colitis for which she was treated with oral vancomycin. His stay was also further complicated by mechanical fall while he was bending over reaching for something he lost his balance and struck his head. This occurred on October 12, 2019 he was left with an abrasion over his forehead he was placed in a c-collar and a CT scan of his head and neck was performed CT of the cervical spine showed no fracture or subluxation. He has severe degenerative changes throughout the cervical spine. CT scan of the head showed no acute intracranial process. Patient continued his treatment and swing bed status including physical therapy as well as his Ancef and his oral vancomycin. In the soda fountain manager hours of October 15, 2019 Dr. Byron Watters was called to evaluate the patient because of protracted vomiting. As well as diarrhea. Patient denied abdominal pain but because of the protracted vomiting he was made n.p.o. Dr. Watters ordered x-ray imaging of his abdomen which demonstrated a developing ileus versus partial small bowel obstruction with moderate to severe dilatation of the visualized loops with air noted in the rectal vault but no free air. I was called to evaluate the patient because of confusion this morning. Upon awakening while he was oriented to person place ([facility]), and time (month and year but not date of the month). Patient presently denies any headache or blurred vision. He has generalized weakness but no focal motor deficits. His vital signs are stable with a temperature 35.9 and a blood pressure 123/69 with a pulse 85 respirations 20 and pulse oximetry 97% on room air. His repeat labs this morning demonstrate hyperkalemia 5.7 and acute kidney injury with a BUN of 27 and creatinine 2.03. CBC demonstrated leukocytosis of 13,000 and an improving anemia with a hemoglobin 12 g compared to his previous value of 9.4 g 11 days ago. Patient will be transferred into the acute inpatient status for continued neurological monitoring as well as a repeat CT scan of his head. IV fluids will be changed from LR to normal saline labs to be monitored and surgical consult be requested regarding his ileus versus partial small bowel obstruction. Home Meds and New Rx's Prescriptions: No Action (DME) vacuum erection device system kit See Dose Instructions .ROUTE .MEDSUPPLY Qty: 1 RF: 0 simvastatin 10 MG tablet 10 mg PO DAILY RF: 0 levothyroxine [Synthroid] 25 MCG tablet 25 mcg PO DAILY RF: 0 tamsulosin 0.4 MG capsule 0.4 mg PO BID RF: 0 finasteride [Proscar] 5 MG tablet 5 mg PO DAILY RF: 0 Discharge Instructions Instructions: C Diff (Clostridium Difficile) Infection (DC), Bacteremia (DC) Activity:: Up out of bed with assistance Equipment/Supplies:: No Equipment Needed Diet:: NPO Discharge Orders Discharge Orders: Discharge Order (Routine); Ordered 10/15/19 Ordered By: Ralph Brito DS: Summary Status at Discharge Functional status at discharge: uses cane/walker Overall status at discharge: patient is not back to baseline Mental Status: other (Patient has exhibited some confusion) Speech and Movement: speech and movement normal Mood: congruent mood and other (Patient has exhibited some confusion) Affect: blunted Exam Narrative Exam Narrative: Elderly male lying in bed with his eyes shut he awakened easily and was oriented to person place time and circumstance. His orientation to time was only to month and year he was confused about the date of the month. He knew he was at [facility] in the hospital. HEENT is remarkable for an abrasion over his forehead that is healing full extraocular motions intact he he has no facial asymmetry. Neck is supple nontender no JVD. Heart is regular rate and rhythm without murmur rub or gallop. Lungs are clear to auscultation Abdomen is slightly distended with hypoactive bowel sounds there is no rebound tenderness or guarding. Extremities without peripheral cyanosis or edema. 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 Lower extremities reveal normal dorsiflexion and plantarflexion at the ankles and normal hip flexion and extension. Neuro exam is nonfocal no facial asymmetry full extraocular motion intact normal strength in upper and lower extremities and normal sensory exam in upper and lower extremities. Psych Mental Status: other (Patient has exhibited some confusion) Speech and Movement: speech and movement normal Mood: congruent mood and other (Patient has exhibited some confusion) Affect: blunted DS: Data Vitals/I&O Vitals and I&O: Vital Signs Temperature 35.9 C L 10/15/19 07:38 Temperature Source Tympanic 10/15/19 07:38 Pulse 85 10/15/19 07:38 Pulse Rhythm Regular 10/15/19 02:00 Respiratory Rate 10/15/19 07:38 Respiratory Effort Non-Labored 10/15/19 02:00 Respiratory Depth Normal 10/15/19 02:00 Respiratory Pattern Normal 10/15/19 02:00 Blood Pressure 123/69 10/15/19 07:38 Pulse Oximetry 97 10/15/19 07:38 Oxygen Delivery Method Room Air 10/15/19 07:38 Oxygen Flow Rate 0 10/15/19 07:38 Fraction of Inspired Oxygen (FIO2) 10/14/19 13:01 Pain Level 0 10/15/19 07:38 Comment 10/14/19 09:25 Intake & Output 10/14/19 10/14/19 10/15/19 11:59 23:59 11:59 Intake Total 100 / 700 600 / 700 121 / 121 Output Total 700 / 1300 600 / 1300 550 / 550 Balance -600 / -600 0 / -600 -429 / -429 Weight 75.4 kg 74.1 kg Intake: IV 100 / 170 70 / 170 121 / 121 Oral 530 / 530 Output: Urine 700 / 1100 400 / 1100 Emesis 200 / 200 550 / 550 Other: Urine Color Yellow Yellow Urine Appearance Clear Clear Clear Urine Odor Foul Stool Size Small Small Large Stool Characteristics Liquid Soft Liquid Emesis Description Undigested Food Projectile Voiding Methods Toilet Toilet Data Completed and Pending Labs on day of discharge: Labs from last 24 hours 10/15/19 10/15/19 07:11 05:33 WBC 13.11 H RBC 3.83 L Hgb 12.0 L Hct 35.5 L MCV 92.7 MCH 31.3 MCHC 33.8 RDW 12.9 Plt Count 587 H MPV 8.4 Sodium 131 L Potassium 5.7 H Chloride 97 L Carbon Dioxide 32.5 H Anion Gap 1.5 L BUN 27 H Creatinine 2.03 H Estimated GFR/1.73 m2 32.09 Glucose 158 H Calcium 8.4 L Total Bilirubin 0.9 AST 24 ALT 8 L Alkaline Phosphatase 91 Total Protein 5.7 L Albumin 2.1 L PFSH Medical History (Updated 10/15/19 @ 09:17 by Ralph Brito) BPH (benign prostatic hyperplasia) (Chronic) Conductive hearing loss (Acute) Epidural abscess (Acute ~10/09/13) Erectile dysfunction (Inactive) History of Clostridioides difficile colitis (Resolved ~10/2013) History of small bowel obstruction (Acute 07/12/15) MSSA (methicillin susceptible Staphylococcus aureus) septicemia (Acute 10/09/13) in setting of ruputured appendicitis and found to have disciitis epidural abscess, [facility] [place], [place], [place]; Dr. Casey Mixon, infectious disease Osteomyelitis of vertebra of thoracolumbar region (Acute ~10/09/13) treated w/ 6 weeks of Ancef; seen by Dr. Casey Mixon, infectious disease, [facility] [place], [place], [place]; completed treatment 11/20/2013; complicated by C. difficile colitis Panic anxiety syndrome (Acute) Sensorineural hearing loss (Acute) Surgical History H/O sinus surgery (Acute) History of bilateral cataract extraction (Acute) History of cholecystectomy (Chronic ~1998) History of tonsillectomy and adenoidectomy (Acute) S/P laparoscopic appendectomy (Acute 10/09/13) S/P left inguinal hernia repair (Acute) Social History Smoking/Tobacco Use Status: Former Tobacco Use Alcohol Intake: never Drug use: Never Substance use type: does not use Do you feel safe at home: Yes Do you feel safe in your relationship?: Yes
[2019-10-15] MEDS: Normal Saline 1,000 ML 150 ML IV (08:42)
[2019-10-15] MEDS: Normal Saline Flush 10 ML SYR 20 ML IVP (08:42)
[2019-10-15 10:50] LABS: Ferritin 439 ng/mL (26-388)
[2019-10-15 10:58] LABS: C-Reactive Protein 1.57 mg/dL (0.0-0.3)
[2019-10-15 11:09] LABS: Iron 34 ug/dL (65-175); Total Iron Binding Capacity 200 ug/dL (250-450)
--- NOTE | 2019-10-16 11:08 | OT.INDS ---
Date of service: 10/16/19 Time of Service: 11:08 Occupational Therapy Notes Occupational Therapy Inpatient SB1 Discharge Summary Date: 10/16/19 Dates of Service: 10/01/19-10/16/19 Referring Doctor:Ralph Brito MD OT Orders: Non-Urgent Precautions: Fall, Standard, DNR/DNI This document serves as a summary of care, no skilled OT services provided for this documentation PATIENT PROFILE/ADMITTING DIAGNOSIS: Pt is a 74-year-old male who presented to the ER on 09/21/19 via EMS with chief complaints of generalized weakness that started 2 days prior to admission that has resulted to a fall on his way to his bathroom in his apartment and a left abdominal discomfort. He states that he stayed on the floor and continued to attempt to get up for hours which made him feel more weak and tired. Patient is admitted with dx of pneumonia with MSSA bacteremia, acute rhabdomyolysis, increased opponent, back pain with question of vertebral osteomyelitis or discitis, neck pain, transaminitis, and ambulatory dysfunction. He was transitioned to [facility] rehabilitation status and consulted for Occupational Therapy for assessment of functional (I) in regards to his ADL/IADL routines. Progress note is due today with updates to pt's progressions since being admitted to [facility], please refer to details below. Past Medical History- Medical History (Updated 09/22/19 @ 10:34 by Shi Alonzo MD) Erectile dysfunction (Inactive) Surgical History (Updated 09/22/19 @ 10:32 by Shi Alonzo MD) S/P left inguinal hernia repair (Acute) Social History/Home Situation: Pt lives alone in an apartment in the [facility] building. He states that his Nasreen recently and he came to [place] which he speaks very highly of. He notes that his apartment is of good size. He drives at baseline and reports that he is totally (I). He has a niece and nephew which he stays in close contact with and they (A) as needed. He has a tub shower with no grab bars and is interested in having a shower seat for safety. He has an elevator from the basement to his floor where he does laundry. He is (I) with meal prep and cooking at baseline. Equipment owned/DME: Cane, FWW SUBJECTIVE: NT OBJECTIVE: This serves as a summary of pts care, no skilled OT services provided for this documentation. ROM: RUE AROM WFL L UE AROM WFL STRENGTH: RUE 5/5 throughout LUE 5/5 throughout SENSATION: Intact (B) UE FUNCTIONAL MOBILITY/ADLS: Transfers with FWW Sit-Stand (S) Stand-sit (S) Bed-Chair (S) Chair to window (S) Picking up shoes from beside bed (S) BATHING Sitting in chair with max (A) Set up, pt was (I) with (B) UE, (B) LE and jennifer area. DRESSING Dressing UE (I) with [facility] and cory valenzuela vc for t-shirt donning with front and back of shirt Dressing LE In standing (I) with donning underwear. Pt noticed he needed to sit transitioned to sitting position and was able to (I) don his pants, socks and shoes. GROOMING Able to stand at sink and (I) brush teeth. TOILETING On toilet (I) with FWW close by for stability as needed. Able to perform clothing adjustments (I) and toileting hygiene. EATING Sitting in chair (I) with opening and closing containers, no issues with swallowing and good use of utensils as needed. (I) with food to mouth transalation. BALANCE: Static sitting Normal Dynamic Sitting Normal Static Standing Normal Dynamic Standing Good ASSESSMENT: Patient is a 74-year-old male referred to occupational therapy services with diagnosis of pneumonia with MSSA bacteremia, acute rhabdomyolysis, increased opponent, back pain with question of vertebral osteomyelitis or discitis, neck pain, transaminitis, and ambulatory dysfunction. Pt has been receiving skilled Occupational Therapy services since 10/01/19 and has made significant improvements in his functional (I) in ADL/IADLs. Pt was transitioned back to acute care level on 10/15/19. Based on pts decline in medical status OT will formally discharge pt at this time. GOALS 1. Transfers (I) with LRD- met 2. Dressing (I) in seated position- met 3. Bathing (I) in shower- progressing towards 4. Toileting (I) on toilet- met 5. Eating (I)- met 6. Grooming routine standing at sink (I)- Met *goal 3 has been modified at this time for bathing in the shower. PLAN OF CARE/TREATMENT PLAN: Pt has transitioned to acute care at this time due to decline in medical status. Based on this, OT will need new referral to continued skilled Occupational Therapy services if MD feels that this is appropriate for pt at this time. OT recommends that pt have a shower seat to increase his (I) and safety in his bathing routine due to decreased standing tolerance and functional activity tolerance. TREATMENT TIME/MINUTES/CODES N/A Jasmyn Grewal, OTR/L [facility]
== END 2019-10-15 09:28 | disposition short-term general hospital (02) | DRG 872 ==
PROVIDERS: General Practice; Internal Medicine; Admitting Provider Internal Medicine; PCP Nurse Practitioner Family; Visit Provider Internal Medicine
DX: R78.81 Bacteremia (principal); A04.72 Enterocolitis due to Clostridium difficile, not specified as recurrent; K56.7 Ileus, unspecified; N17.9 Acute kidney failure, unspecified; M46.46 Discitis, unspecified, lumbar region; B95.61 Methicillin susceptible Staphylococcus aureus infection as the cause of diseases classified elsewhere; Z79.2 Long term (current) use of antibiotics; R41.0 Disorientation, unspecified; I10 Essential (primary) hypertension; N40.1 Benign prostatic hyperplasia with lower urinary tract symptoms; R33.8 Other retention of urine; R26.2 Difficulty in walking, not elsewhere classified; S00.81XA Abrasion of other part of head, initial encounter; W18.30XA Fall on same level, unspecified, initial encounter; Y92.230 Patient room in hospital as the place of occurrence of the external cause; L60.0 Ingrowing nail; L85.3 Xerosis cutis; Z73.89 Other problems related to life management difficulty; E87.5 Hyperkalemia; D64.9 Anemia, unspecified
CPT/HCPCS: 80048; 80053; 85027; 97110; 97112; 97162; 97165; 97530; 97535; 99231; 99233; 99239; 99305; 99307; 99316; NC; 70450; 72125; 74018; 82728; 83540; 83550; 83735; 85025; 86140; 87324; J0690; J2405; J3490; L0172

== ENCOUNTER 2019-10-15 09:03 | Inpatient (IN) | payer MEDICARE, SELFPAY ==
[2019-10-15 08:30] VITALS: BP 123/69; PULSE 85; RESP 20; TEMP 35.9; O2SAT 96
--- NOTE | 2019-10-15 09:02 | W.PM.HP.N ---
Date of service: 10/15/19 Time of Service: 09:02 Assessment and Plan Assessment and plan (1) Ileus: Status: Acute Assessment and plan: keep NPO; place NG for decompression of stomach/SB; consult surgery, monitor for resolution; monitor labs; repeat KUB in the a.m. (2) Clostridium difficile enterocolitis: Status: Acute Assessment and plan: switch po Vancomycin to Flagyl (3) MSSA bacteremia: Status: Acute Assessment and plan: cont. Ancef 2 gm IV q8hr through 11/08 (4) Lumbar discitis: Status: Acute Assessment and plan: continue Ancef as above; repeat LS spine MRI upon completion of antibiotics (5) BPH (benign prostatic hyperplasia): Status: Chronic Assessment and plan: Proscar and Tamsulosin on hold while NPO; restart when able to take PO; may need intermittent straight cath if he shows urinary retention Qualifiers: Lower urinary tract symptom presence: symptoms present Lower urinary tract symptom detail: urinary retention Qualified Code(s): N40.1 - Benign prostatic hyperplasia with lower urinary tract symptoms; R33.8 - Other retention of urine (6) Essential hypertension: Status: Acute Assessment and plan: BP meds on hold for now (7) Urinary retention: Status: Acute Assessment and plan: monitor urine output and post void residuals, cath prn >500 mL (8) Acute confusion: Status: Acute Assessment and plan: more alert this afternoon but may be metabolic encephalopathy from infection. will monitor History of Present Illness History of Present Illness Chief Complaint: confusion, vomiting Narrative: 74-year-old male who was initially admitted to the hospital for sepsis and was found to have MSSA bacteremia and had acute kidney injury as well as rhabdomyolysis and encephalopathy. See admission H&P for details. 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 CT scan of the chest suggested some mild bibasilar infiltrates but otherwise had no evidence for pneumonia as a source for his MSSA. Eventually MRI scanning of his spine suggested discitis of the L2-L3 and L3-L4 levels. Patient was treated with Ancef 2 g IV every 8 hours and eventually his blood cultures cleared as of September 28, 2019. He was entered into swing bed status on September 30, 2019 for completion of his parenteral antibiotics for his MSSA bacteremia and lumbar discitis. His current hospitalization under swing bed status was complicated by the development of C. difficile colitis for which she was treated with oral vancomycin. His stay was also further complicated by mechanical fall while he was bending over reaching for something he lost his balance and struck his head. This occurred on October 12, 2019 he was left with an abrasion over his forehead he was placed in a c-collar and a CT scan of his head and neck was performed CT of the cervical spine showed no fracture or subluxation. He has severe degenerative changes throughout the cervical spine. CT scan of the head showed no acute intracranial process. Patient continued his treatment and swing bed status including physical therapy as well as his Ancef and his oral vancomycin. In the community case manager hours of October 15, 2019 Dr. Byron Watters was called to evaluate the patient because of protracted vomiting. As well as diarrhea. Patient denied abdominal pain but because of the protracted vomiting he was made n.p.o. Dr. Watters ordered x-ray imaging of his abdomen which demonstrated a developing ileus versus partial small bowel obstruction with moderate to severe dilatation of the visualized loops with air noted in the rectal vault but no free air. I was called to evaluate the patient because of confusion this morning. Upon awakening while he was oriented to person place ([facility]), and time (month and year but not date of the month). Patient presently denies any headache or blurred vision. He has generalized weakness but no focal motor deficits. His vital signs are stable with a temperature 35.9 and a blood pressure 123/69 with a pulse 85 respirations 20 and pulse oximetry 97% on room air. His repeat labs this morning demonstrate hyperkalemia 5.7 and acute kidney injury with a BUN of 27 and creatinine 2.03. CBC demonstrated leukocytosis of 13,000 and an improving anemia with a hemoglobin 12 g compared to his previous value of 9.4 g 11 days ago. Patient will be transferred into the acute inpatient status for continued neurological monitoring as well as a repeat CT scan of his head. IV fluids will be changed from LR to normal saline labs to be monitored and surgical consult be requested regarding his ileus versus partial small bowel obstruction. Review of Systems Constitutional Constitutional: Reports fatigue, Reports frequent falls, Denies headache(s) and Reports weakness Eyes Eyes: Reports system reviewed and no additional complaints, except as documented ENT Ears, Nose, Mouth, and Throat: Reports system reviewed and no additional complaints, except as documented and Denies headache(s) Cardiovascular Cardiovascular: Reports system reviewed and no additional complaints, except as documented Respiratory Respiratory: Reports system reviewed and no additional complaints, except as documented Gastrointestinal Gastrointestinal: Reports diarrhea, Reports nausea and Reports vomiting Genitourinary Genitourinary: Reports system reviewed and no additional complaints, except as documented Musculoskeletal Musculoskeletal: Reports muscle weakness Integumentary/Breasts Skin/Breast: Reports wounds Neurologic Neurologic: Reports frequent falls, Denies headache(s), Denies sensory deficit and Reports weakness Psychiatric Psychiatric: Reports system reviewed and no additional complaints, except as documented Endocrine Endocrine: Reports fatigue Hematologic/Lymphatic Hematologic/Lymphatic: Reports system reviewed and no additional complaints, except as documented Allergic/Immunologic Allergic/Immunologic: Reports system reviewed and no additional complaints, except as documented [facility] Medical History (Updated 10/15/19 @ 23:08 by Abena Mckeon DO) BPH (benign prostatic hyperplasia) (Chronic) Conductive hearing loss (Acute) Dehydration (Acute) Epidural abscess (Acute ~10/09/13) Erectile dysfunction (Inactive) History of Clostridioides difficile colitis (Resolved ~10/2013) History of small bowel obstruction (Acute 07/12/15) MSSA (methicillin susceptible Staphylococcus aureus) septicemia (Acute 10/09/13) in setting of ruputured appendicitis and found to have disciitis epidural abscess, [facility], [place], [place]; Dr. Casey Mixon, infectious disease Osteomyelitis of vertebra of thoracolumbar region (Acute ~10/09/13) treated w/ 6 weeks of Ancef; seen by Dr. Casey Mixon, infectious disease, [facility], [place], [place]; completed treatment 11/20/2013; complicated by C. difficile colitis Panic anxiety syndrome (Acute) Sensorineural hearing loss (Acute) Surgical History H/O sinus surgery (Acute) History of bilateral cataract extraction (Acute) History of cholecystectomy (Chronic ~1998) History of tonsillectomy and adenoidectomy (Acute) S/P laparoscopic appendectomy (Acute 10/09/13) S/P left inguinal hernia repair (Acute) Social History Smoking/Tobacco Use Status: Former Tobacco Use Alcohol Intake: never Drug use: Never Substance use type: does not use Do you feel safe at home: Yes Do you feel safe in your relationship?: Yes Meds Home Medications and Allergies Home Medications Medication Instructions Recorded Confirmed Type finasteride [Proscar] 5 mg PO DAILY 07/25/17 10/15/19 History levothyroxine [Synthroid] 25 mcg PO DAILY 07/25/17 10/15/19 History simvastatin 10 mg PO DAILY 07/25/17 09/30/19 History tamsulosin 0.4 mg PO BID 07/25/17 10/15/19 History vacuum erection device system #1 each 03/28/18 01/30/19 Rx Allergies Allergy/AdvReac Type Severity Reaction Status Date / Time Penicillins Allergy Mild Skin Rash Unverified 03/20/18 14:02 aspirin AdvReac Mild GI Bleeding Unverified 03/20/18 14:02 Exam Narrative Exam Narrative: Elderly male lying in bed with his eyes shut he awakened easily and was oriented to person place time and circumstance. His orientation to time was only to month and year he was confused about the date of the month. He knew he was at [facility] in the hospital. HEENT is remarkable for an abrasion over his forehead that is healing full extraocular motions intact he he has no facial asymmetry. Neck is supple nontender no JVD. Heart is regular rate and rhythm without murmur rub or gallop. Lungs are clear to auscultation Abdomen is slightly distended with hypoactive bowel sounds there is no rebound tenderness or guarding. Extremities without peripheral cyanosis or edema. 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 Lower extremities reveal normal dorsiflexion and plantarflexion at the ankles and normal hip flexion and extension. Neuro exam is nonfocal no facial asymmetry full extraocular motion intact normal strength in upper and lower extremities and normal sensory exam in upper and lower extremities. Psych Mental Status: other (Patient has exhibited some confusion) Speech and Movement: speech and movement normal Mood: congruent mood and other (Patient has exhibited some confusion) Affect: blunted Results Labs Result diagrams: 10/16/19 06:55 10/16/19 06:55 COVID-19 Screening In the past 14 days, have you traveled outside of [place] or [place]?: NO
--- NOTE | 2019-10-15 09:36 | SCONE_ITS ---
Date of service: 10/15/19 Time of Service: 09:36 Assessment and Plan Assessment and plan (1) Ileus: Status: Acute Assessment and plan: unsure of significance. -Pt is acutely dehydrated and required fluid resuscitation (currently being done). Unclear if this is an exacerbation of C. diff., ulcer Dx or true SBO. If n/v does not improve- would try to get a CT. However, she needs to have po contrast to see the bowel. Nursing at this time, says pt would not be able to keep contrast down. -don't think pt requires EGD. -sounds like the pt was doing well w/ C. diff treatment. -will follow and see how pt progresses this afternoon. (2) Acute confusion: Status: Acute (3) Clostridium difficile enterocolitis: Status: Acute (4) Lumbar discitis: Status: Acute (5) MSSA bacteremia: Status: Acute (6) Urinary retention: Status: Acute (7) PSVT (paroxysmal supraventricular tachycardia): Status: Acute History of Present Illness Narrative: pt has been inpt since 09/21, essentially. He was initially admitted w/ MSSA sepsis- most likely source was pneumonia and an infected lumber disc. He has had a previous vertebral osteo in 2013. He also developed C diff after being on abx for this. He has developed c diff from 6wks of IV Ancef. He has been on po vanco for a week. last pm he had mult episode of projectile vomiting. It was not grossly bloody- but was coffee grounds and heme +. He also had melt stools. not overtly bloody. He was also experiencing acute MS changes. Currently he is very sleepy, but arousal and appropriate. He denies abdominal pain or nausea. He is NPO. His abdomen is flat adn doesn't seem to much pain. He had an inguinal hernia repair, appendectomy and kassandra, done remotely. Nursing says his VS are currently stable and he is afebrile- although he feels warm. Per nursing, his mentation is not baseline. He did fall/have a head injury on the 18. His pupils are equal. pt was Dg w/ c diff on 10/06 and has been on vanco po 250mg. Is still on ancef. He has been on pepcid. no steriods. no nsaid's. Consults Consult date: 10/15/19 Requesting physician: Ralph Brito Review of Systems All systems reviewed & are unremarkable except as noted in HPI and below PFSH Medical History BPH (benign prostatic hyperplasia) (Chronic) Conductive hearing loss (Acute) Epidural abscess (Acute ~10/09/13) Erectile dysfunction (Inactive) History of Clostridioides difficile colitis (Resolved ~10/2013) History of small bowel obstruction (Acute 07/12/15) MSSA (methicillin susceptible Staphylococcus aureus) septicemia (Acute 10/09/13) in setting of ruputured appendicitis and found to have disciitis epidural abscess, [facility], [place], [place]; Dr. Casey Mixon, infectious disease Osteomyelitis of vertebra of thoracolumbar region (Acute ~10/09/13) treated w/ 6 weeks of Ancef; seen by Dr. Casey Mixon, infectious disease, [facility], [place], [place]; completed treatment 11/20/2013; complicated by C. difficile colitis Panic anxiety syndrome (Acute) Sensorineural hearing loss (Acute) Surgical History H/O sinus surgery (Acute) History of bilateral cataract extraction (Acute) History of cholecystectomy (Chronic ~1998) History of tonsillectomy and adenoidectomy (Acute) S/P laparoscopic appendectomy (Acute 10/09/13) S/P left inguinal hernia repair (Acute) Social History Smoking/Tobacco Use Status: Former Tobacco Use Alcohol Intake: never Drug use: Never Substance use type: does not use Do you feel safe at home: Yes Do you feel safe in your relationship?: Yes
[2019-10-15] MEDS: ceFAZolin 2 GM/50 ML BAG IVPB ×2 (10:22→19:45)
[2019-10-15] MEDS: metroNIDAZOLE 500 MG/100 ML BAG 100 MG IVPB ×3 (10:27→22:45)
[2019-10-15] MEDS: Normal Saline Flush 10 ML SYR IVP (10:29)
--- NOTE | 2019-10-15 10:57 | PHA.REVIEW ---
Pharmacy Admission Review - Admission Clinical Review (Last Reviewed 10/15/19 @ 09:47 by Abena Mckeon, DO) Ileus (Acute) Acute confusion (Acute) Clostridium difficile enterocolitis (Acute) Lumbar discitis (Acute) MSSA bacteremia (Acute) Urinary retention (Acute) PSVT (paroxysmal supraventricular tachycardia) (Acute) Penicillins Allergy (Mild, Unverified 03/20/18 14:02) Skin Rash aspirin Adverse Reaction (Mild, Unverified 03/20/18 14:02) GI Bleeding Height 5 ft 10.08 in Weight 74.1 kg - Comments Comments/Follow Ups: Pt was [facility] 10/14 - Renal Dosing Medications needing adjustments: Intervened (Cefazolin should be adjusted to 1/2 usual dose q12h with CrCl 11-34ml/min -- notified MD) List of meds needing interventions: Cefazolin - Anticoagulation DVT Prohphylaxis: Reviewed (TEDs/SCDs -- was on heparin but dc'd due to thrombocytopenia) Therapeutic Anticoagulation: N/A - Opiate Usage Evaluate Pain Scale/Pains Meds: N/A (tramadol dc'd due to potential alteration in mental status) Scheduled Bowel Reg ordered if on Opiates?: No (PRN -- c. diff ) - Relevant Labs Electrolytes, C-Reactive P, ESR: N/A - DM Control Insulin Dosing: N/A - Heart Failure/TX EF%, MATY's, B-Blockers, Diuretics: N/A - BP Control BP Control: Blood Pressure 123/69 If elevated: Reviewed (amlodipine was dc'd due to extremely low BP) - Qtc Review If Elevated: N/A - IV to PO Switch IV Medications: Reviewed (currently npo; PO vanco was changed to IV flagyl until N/V/SBO resolved, other PO meds on hold) - Current meds Current Medication Order Review: Reviewed - Comments Comments/Follow Ups: Changed to acute inpatient status for monitoring of altered mental status and surgical consult for possible SBO
[2019-10-15 11:25] VITALS: BP 136/68; PULSE 83; RESP 17; TEMP 37.2; O2SAT 95
[2019-10-15] MEDS: Ondansetron 4 MG/2 ML VIAL IVP (13:06)
--- NOTE | 2019-10-15 13:35 | NS.NUTBLAN_ITS ---
Date of service: 10/15/19 Time of Service: 13:36 Nutritional Consult ASSESSMENT: Willy at high nutritional risk. Admitted on 09/20 (73 kg) with sepsis with MSSA bacteremia, infected lumbar disc, developed C diff. Currently NPO for suspected ileus or SOB. Weight today 74 kg. No significant change in weight since admission however nursing reports po intake has been declining in last week. Receiving IV hydration. Due to multiple infections, C diff now with increased nutrient needs. Estimated Needs: 2220 kcal, 74 g protein. Recommend adding ensure clear TID when starts eating again. NUTRITIONAL DIAGNOSIS: increased nutrient needs due to increase losses with C diff and multiple infections INTERVENTION: regular diet ensure clear BID- adds 400 kcal, 20 g protein MONITORING AND EVALUATION: weight, po intake, labs Time Spent in Nutritional Counseling and Treatment: 0 time, patient sleeping tod ay when visited
[2019-10-15 13:41] LABS: BUN 34 mg/dL (7-18); CREATININE 2.13 mg/dL (0.70-1.30); Estimated GFR 30.36 (mL/min/1.73m2)
--- NOTE | 2019-10-15 14:00 | DI.CT_ITS ---
EXAM: CT ABDOMEN PELVIS WO CLINICAL HISTORY: abdominal distenstion, pain. TECHNIQUE: Imaging Protocol: Axial computed tomography images with coronal and sagittal reformatted images were created and reviewed. COMPARISON: CT CT THORACIC LUMBAR SPINE REC from 09/21/[address] CHEST PE ABD PELVIS W from 09/21/2019 FINDINGS: ABDOMEN: Lung Bases: The tip of a central venous catheter is seen in the right atrium. There is a small peric ardial effusion. There are tiny bilateral pleural effusions. Bilateral basilar infiltrates are pres ent. Liver: There is a 1.2 cm density in the inferior aspect of the right lobe of the liver. This was pre sent on the prior examination from 09/21/2019 and is unchanged. Normal density. Gallbladder and biliary tract: The gallbladder is not visualized. No biliary ductal dilatation. Pancreas: Normal density, no abnormal calcifications or inflammatory process. Spleen: Normal. Kidneys: Normal size, contour and axis. No radiodense stones or obstructive uropathy. No masses seen. Bilateral parapelvic cysts. Adrenal glands: No masses seen. Lymph nodes: Within normal limits. Abdominal Aorta: Abdominal portion non-dilated. Atherosclerosis. PELVIS: Bladder: Symmetric distention, no gross wall thickening. Bowel: The stomach is distended. The small bowel is distended with air-fluid levels. Morales of the s mall bowel loops in the left abdomen are somewhat ill-defined. Foci of air is noted which may be int raluminal. Pneumatosis intestinalis cannot be excluded. No evidence of an acute appendicitis. Ther e is colonic diverticulosis but no evidence of acute diverticulitis. Peritoneal cavity: Small amount of pelvic ascites and perihepatic ascites. Reproductive organs: Enlarged prostate gland. Bones: Degenerative changes in the lumbar and thoracic spine. Soft Tissues: There is a fluid-filled loop of small bowel in the the left inguinal hernia. IMPRESSION: 1. Findings suspicious for small bowel obstruction. Question of air in the wall of the small bowel i n the left abdomen. Ischemia cannot be excluded. Please correlate clinically. 2. Abdominal and pelvic ascites. 3. Left inguinal hernia containing a distended and fluid filled loop of small bowel. 4. Findings in the lung bases which may represent atelectasis or pneumonia. RADIATION DOSE DELIVERED: 869.12mGy.cm Total DLP DATA REPOSITORY: All CT scans at this facility are submitted to the National Radiology Data Registry (NRDR) Dose Index Registry (DIR) with the [employer] (ACR). RADIATION OPTIMIZATION: All CT scans at this facility use at least one of these dose optimization te chniques: automated exposure control; mA and/or kV adjustment per patient size (includes targeted exa ms where dose is matched to clinical indication); or iterative reconstruction.
[2019-10-15] MEDS: Normal Saline 500 ML 1000 ML IV ×2 (14:01→14:18)
[2019-10-15] MEDS: Normal Saline 1,000 ML 500 ML IV ×2 (14:19→23:52)
[2019-10-15] MEDS: Metoclopramide 10 MG/2 ML VIAL 5 MG IVP (14:34)
[2019-10-15 15:20] VITALS: BP 131/66; PULSE 91; RESP 18; TEMP 37; O2SAT 96
[2019-10-15] MEDS: Omnipaque 350 MG/ML 50 ML BTL PO (16:10)
[2019-10-15] MEDS: Breeza Beverage 473 ML BTL PO ×2 (16:10→16:11)
--- NOTE | 2019-10-15 16:32 | DI.VRAD_ITS ---
Addendum created by Tani Otto MD on 10/15/2019 4:34:59 PM EDT THIS REPORT CONTAINS FINDINGS THAT MAY BE CRITICAL TO PATIENT CARE. The findings were verbally communicated via telephone conference with MATERIAL ENGINEER Lorelei Sanchez at 4:34 PM EDT on 10/15/2019. The findings were acknowledged and understood. Initial report created on 10/15/2019 4:32:23 PM EDT PROCEDURE INFORMATION: Exam: CT Abdomen And Pelvis Without Contrast Exam date and time: 10/15/2019 4:06 PM Age: 74 years old Clinical indication: Bloating and nausea and vomiting; Patient HX: Abd distention and pain R/O ileus vs. Sbo; Additional info: Po contrast only due to renal function. TECHNIQUE: Imaging protocol: Computed tomography of the abdomen and pelvis without contrast. Radiation optimization: All CT scans at this facility use at least one of these dose optimization techniques: automated exposure control; mA and/or kV adjustment per patient size (includes targeted exams where dose is matched to clinical indication); or iterative reconstruction. Other contrast: Oral, Breeza 900 ml, Omnipaque 350 50 ml , 950 ml; COMPARISON: CT Abdomen^ROUTINE ABDOMEN PELVIS WITH CONTRAST (Adult) 01/14/2018 8:35 AM FINDINGS: Tubes, catheters and devices: There is a central line with its tip in the right atrium. Heart: There is a small pericardial effusion. Lungs: There are bilateral emphysematous changes. There is fibrosis and scarring at the left lung base. There are pleural calcifications , with slight interstitial calcifications within the left lower lobe. This could be the sequela of old infectious versus noninfectious inflammatory etiologies. There are slight atelectatic changes at the lung bases. There is slight fibrosis and scarring at the right lung base. Liver: There is a small low-attenuation lesion within the right lobe of the liver measuring 1.2 cm. Gallbladder and bile ducts: Normal. No calcified stones. No ductal dilation. Pancreas: The pancreas is within normal limits. Spleen: The spleen is within normal limits. Adrenals: The adrenal glands are unremarkable. Kidneys and ureters: There are bilateral parapelvic renal cysts. Stomach and bowel: The stomach is distended with oral contrast. There are food products within the stomach. The small bowel is distended with air-fluid levels. There is fluid surrounding loops of jejunum, these loops are somewhat ill-defined. Pneumatosis intestinalis at this level is not excluded. Ischemia is therefore not excluded. Clinical correlation is recommended. There are diverticuli of the colon. Appendix: The patient is status post appendectomy. Intraperitoneal space: There is ascites. There is fluid around the liver as well as within the pelvis. Vasculature: There are coronary artery calcifications. There are phleboliths within the pelvis. There are arteriosclerotic changes of the aorta. Lymph nodes: No enlarged lymph nodes. Bladder: The urinary bladder is distended with urine. Reproductive: The prostate is enlarged and indents the bladder base. The seminal vesicles are unremarkable. Bones/joints: There are degenerative changes of the thoracic and lumbar spines. There is degenerative disc disease at multiple levels. There is an anterior flowing osteophyte involving the visualized thoracic and upper lumbar spines. Soft tissues: Unremarkable. IMPRESSION: 1. Small-bowel obstruction. Ischemic small bowel is suspected. Cyst clinical correlation is recommended. 2. Lung findings as above. 3. Enlarged prostate correlation with the patient's PSA is recommended. 4. Distended urinary bladder. 5. Ascites. 6. Bilateral parapelvic renal cysts. 7. Liver lesion. This could be re-evaluated with a CT scan of the liver utilizing hemangioma protocol. 8. Osseous findings as above. Dictated and Authenticated by: Tani Otto MD. Ordering:.[facility] Alisha Rosas MD
--- NOTE | 2019-10-15 17:11 | PDOC.CMPRO ---
- If Service Date Differs Date of service: 10/15/19 Time of Service: 17:11 Care Management Progress Note S/O: Dawit was transferred to acute med/surge level of care today, as he was having vomiting and diarrhea, suggestive of a SBO or Ileus. Surgical was consulted, and a CT was ordered to determine the condition. He will be monitored and treated prior to returning to B level one status for the remainder of his abx course. CM met with Dawit, who reported that he is not doing well right now. CM suggested that Dawit get some rest, and we will check in with him tomorrow to see how he progresses. CM will continue to follow. A: Willy is a 74 year old male admitted to [facility] on 09/21/19, now back in [facility] from B level 1 for SBO vs Ileus. P: Anticipate Dawit will return to his IV abx treatment once he is medically cleared, and will be transitioned back to SWB 1 level of care. He will continue to work with PT, as recommended. He may need community supports once ready to discharge. CM will continue to follow.
[2019-10-15] MEDS: IRON SUCROSE COMPLEX 200 MG in Normal Saline 100 ML 400 MG IVPB (18:49)
[2019-10-15 19:35] VITALS: BP 135/64; PULSE 89; RESP 18; TEMP 38.5; O2SAT 94
[2019-10-15] MEDS: Lidocaine 2% Jelly 6 ML SYR (19:45)
[2019-10-15] MEDS: Famotidine 20 MG/2 ML VIAL IV (19:46)
[2019-10-15 19:54] LABS: Lactate 0.8 mmol/L (0.6-1.4)
[2019-10-15 19:57] LABS: HCT 28.2 % (40.0-50.0); HGB 9.2 g/dL (13.5-17.5); Mean Corp. HGB Concentration 32.6 g/dL (32.0-36.0); Mean Corpuscular Hemoglobin 30.8 pg (27.0-33.0); Mean Corpuscular Volume 94.3 fL (80-95); Mean Platelet Volume 8.5 fL (8.0-11.0); Platelet Count 440 x1000/uL (130-400); RBC 2.99 m/cumm (4.50-6.00); RBC Distribution Width 13.1 % (11.8-14.1); White Blood Cell Count 9.44 k/cumm (4.4-10.8)
[2019-10-15 20:12] LABS: AST 19 U/L (15-37); Albumin 1.6 g/dL (3.4-5.0); Alkaline Phosphatase 69 U/L (46-116); Anion Gap -0.7 mmol/L (3-11); BUN 38 mg/dL (7-18); Bilirubin, Total 0.7 mg/dL (0.2-1.0); CO2 33.7 mmol/L (21.0-32.0); CREATININE 2.16 mg/dL (0.70-1.30); Calcium 7.6 mg/dL (8.5-10.1); Chloride 102 mmol/L (98-107); Estimated GFR 29.87 (mL/min/1.73m2); Glucose 116 mg/dL (74-106); Potassium 5.6 mmol/L (3.5-5.1); Sodium 135 mmol/L (136-145); Total Protein 4.5 g/dL (6.4-8.2)
[2019-10-15 20:24] LABS: Prothrombin Time 10.4 sec (9.3-11.0)
[2019-10-15 20:28] LABS: Procalcitonin 0.6 ng/mL
[2019-10-15] MEDS: Normal Saline 1,000 ML 150 ML IV (20:35)
[2019-10-15 20:38] LABS: ALT 7 U/L (16-63)
--- NOTE | 2019-10-15 22:54 | W.PM.PROGNOT ---
Date of Service Date of service: 10/15/19 Time of Service: 22:54 Assessment and Plan Assessment and plan (1) Ileus: Status: Acute Assessment and plan: unclear if this is mechanical, related to c diff, or other underlying process. no sign of peritontis/ischemic bowel at this time -fluid resuscitation -change to protonix -think the hgb of 12 this am was hemoconcentrated. Pt is still extremely dehydrated w/ minimal urine outpt- repeat fluid bolus -will follow repeat labs and xray in am 1 Hr spent in pt exam, counseltation, coordinating care tonight. (2) Urinary retention: Status: Acute Subjective Subjective Interval history since last seen: CT adn labs reviewed. I did review the CT w/ the [employer] traveling construction superintendent. 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 The colon as collapsed, so cannot comment on thickness of the bowel wall. There is one loop of mid jejunum that has, possibly, some air in the bowel wall. I did come and see the pt tonight. Clinically, the pt says he feels better than this afternoon. The RN's state that on day shift they had 1500cc of fluid from the NGT- it is dark brown in color and heme+. he has not had any more stools on day shift. He has not had any urine out since 2am (at 7am tonight)- so I did have them put a rodríguez in. He only had 200cc out, and it is dark brown. When I asked pt about his prior surgery's and when they were- he says he doesn't remember if they were open or laprascopic or what year they were. He says he did have a similar episode when he was in the hospital in [facility] w/ prior C. diff- referring to the SBO. This was treated w/ NGT, and not w/ surgery. Otherwise, he has not had a SBO in the past. Tonight, he says he has no pain. He has no nausea. He has not had further stools. He is not sure he is passing gas. His abdomen is not distended and he has no pain. BS are high pitched and tinkly. VS have been stable. He had a temp earlier, but this was repeated and is nl. 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 Exam Chest Chest: normal inspection of the chest Resp Effort & Inspection: normal respiratory effort and able to speak in complete sentences Auscultation: clear to auscultation bilaterally Cardio Rate: regular rate Rhythm: regular rhythm GI Inspection: scar Palpation: soft, tender (none) and ascites (small amount on CT. albumin 1.7) Auscultation: high-pitched sounds and hypoactive bowel sounds Objective Objective Clinical Data: Abnormal lab results 10/15/19 10/15/19 10/15/19 Range/Units 13:22 19:37 19:37 RBC 2.99 L (4.50-6.00) m/cumm Hgb 9.2 L D (13.5-17.5) g/dL Hct 28.2 L D (40.0-50.0) % Plt Count 440 H (130-400) x1000/uL Sodium 135 L (136-145) mmol/L Potassium 5.6 H (3.5-5.1) mmol/L Carbon Dioxide 33.7 H (21.0-32.0) mmol/L Anion Gap -0.7 L (3-11) mmol/L BUN 34 H 38 H (7-18) mg/dL Creatinine 2.13 H 2.16 H (0.70-1.30) mg/dL Glucose 116 H (74-106) mg/dL Calcium 7.6 L (8.5-10.1) mg/dL ALT 7 L (16-63) U/L Total Protein 4.5 L (6.4-8.2) g/dL Albumin 1.6 L (3.4-5.0) g/dL Vital Signs Temperature 38.5 C H 10/15/19 19:35 Temperature Source Tympanic 10/15/19 19:35 Pulse 89 10/15/19 19:35 Pulse Rhythm Regular 10/15/19 17:45 Respiratory Rate 18 10/15/19 19:35 Respiratory Effort Non-Labored 10/15/19 17:45 Respiratory Depth Normal 10/15/19 17:45 Respiratory Pattern Normal 10/15/19 17:45 Blood Pressure 135/64 10/15/19 19:35 Pulse Oximetry 94 L 10/15/19 19:35 Oxygen Delivery Method Room Air 10/15/19 19:35 Oxygen Flow Rate 0 10/15/19 19:35 Pain Level 0 10/15/19 19:35 Intake & Output 10/14/19 10/15/19 10/15/19 23:59 11:59 23:59 Intake Total 70 / 170 100 / 170 Output Total 165 / 1650 Balance 70 / -1480 -1550 / -1480 Weight 74.1 kg Intake: IV 70 / 170 100 / 170 Output: Gastric Drainage 1649 / 0 Left Nare 1649 / 1649 Other: Comment No voiding reported by previous shift. Stool Occult Blood Positive Stool Size Large Stool Characteristics Liquid Brown Gastric Occult Blood Left Nare Positive Laboratory Results WBC 9.44 k/cumm (4.4-10.8) 10/15/19 19:37 RBC 2.99 m/cumm (4.50-6.00) L 10/15/19 19:37 Hgb 9.2 g/dL (13.5-17.5) L D 10/15/19 19:37 Hct 28.2 % (40.0-50.0) L D 10/15/19 19:37 MCV 94.3 fL (80-95) 10/15/19 19:37 MCH 30.8 pg (27.0-33.0) 10/15/19 19:37 MCHC 32.6 g/dL (32.0-36.0) 10/15/19 19:37 RDW 13.1 % (11.8-14.1) 10/15/19 19:37 Plt Count 440 x1000/uL (130-400) H 10/15/19 19:37 MPV 8.5 fL (8.0-11.0) 10/15/19 19:37 PT 10.4 sec (9.3-11.0) 10/15/19 20:00 INR 1.0 (0.9-1.1) 10/15/19 20:00 Sodium 135 mmol/L (136-145) L 10/15/19 19:37 Potassium 5.6 mmol/L (3.5-5.1) H 10/15/19 19:37 Chloride 102 mmol/L (98-107) 10/15/19 19:37 Carbon Dioxide 33.7 mmol/L (21.0-32.0) H 10/15/19 19:37 Anion Gap -0.7 mmol/L (3-11) L 10/15/19 19:37 BUN 38 mg/dL (7-18) H 10/15/19 19:37 Creatinine 2.16 mg/dL (0.70-1.30) H 10/15/19 19:37 Estimated GFR/1.73 m2 29.87 (mL/min/1.73m2) 10/15/19 19:37 Glucose 116 mg/dL (74-106) H 10/15/19 19:37 Lactate 0.8 mmol/L (0.6-1.4) 10/15/19 19:37 Calcium 7.6 mg/dL (8.5-10.1) L 10/15/19 19:37 Total Bilirubin 0.7 mg/dL (0.2-1.0) 10/15/19 19:37 AST 19 U/L (15-37) 10/15/19 19:37 ALT 7 U/L (16-63) L 10/15/19 19:37 Alkaline Phosphatase 69 U/L (46-116) 10/15/19 19:37 Total Protein 4.5 g/dL (6.4-8.2) L 10/15/19 19:37 Albumin 1.6 g/dL (3.4-5.0) L 10/15/19 19:37 Procalcitonin 0.6 ng/mL 10/15/19 19:37
[2019-10-15 23:02] VITALS: BP 130/68; PULSE 89; RESP 16; TEMP 36.6; O2SAT 96
[2019-10-16] MEDS: metroNIDAZOLE 500 MG/100 ML BAG 100 MG IVPB ×4 (03:32→21:38)
[2019-10-16 03:50] VITALS: BP 115/57; PULSE 84; RESP 17; TEMP 37.2; O2SAT 94
[2019-10-16] MEDS: ceFAZolin 2 GM/50 ML BAG IVPB ×3 (04:41→20:39)
[2019-10-16 07:17] LABS: Lactate 0.6 mmol/L (0.6-1.4)
[2019-10-16 07:20] LABS: Abs Immature Grans 0.05 k/cumm (0.0-0.09); Absolute Basophil Count 0.01 k/cumm (0.0-0.2); Absolute Eosinophil Count 0.12 k/cumm (0.0-0.7); Absolute Monocyte Count 0.91 k/cumm (0.11-0.7); Absolute Neutrophil Count 5.69 k/cumm (1.2-6.7); Basophils % 0.1; Eosinophils % 1.6; HCT 25.7 % (40.0-50.0); HGB 8.3 g/dL (13.5-17.5); Immature Grans % 0.7 %; Lymphocytes % 10.6; Mean Corp. HGB Concentration 32.3 g/dL (32.0-36.0); Mean Corpuscular Volume 95.9 fL (80-95); Mean Platelet Volume 8.4 fL (8.0-11.0); Platelet Count 381 x1000/uL (130-400); RBC 2.68 m/cumm (4.50-6.00); RBC Distribution Width 13.2 % (11.8-14.1); White Blood Cell Count 7.58 k/cumm (4.4-10.8)
[2019-10-16 07:34] LABS: ALT 8 U/L (16-63); AST 19 U/L (15-37); Albumin 1.6 g/dL (3.4-5.0); Alkaline Phosphatase 63 U/L (46-116); Anion Gap 3.7 mmol/L (3-11); BUN 34 mg/dL (7-18); Bilirubin, Total 0.3 mg/dL (0.2-1.0); CO2 30.3 mmol/L (21.0-32.0); Calcium 7.5 mg/dL (8.5-10.1); Chloride 104 mmol/L (98-107); Estimated GFR 36.87 (mL/min/1.73m2); Glucose 99 mg/dL (74-106); Potassium 4.7 mmol/L (3.5-5.1); Sodium 138 mmol/L (136-145); Total Protein 4.5 g/dL (6.4-8.2)
[2019-10-16 07:45] VITALS: BP 126/60; PULSE 79; RESP 18; TEMP 37; O2SAT 95
[2019-10-16] MEDS: Normal Saline 1,000 ML 150 ML IV ×2 (08:02→20:40)
[2019-10-16] MEDS: Lidocaine 5% Patch 1 PATCH TP (08:03)
--- NOTE | 2019-10-16 09:35 | DI.RAD_ITS ---
EXAM: XR CHEST 2V PA LATERAL CLINICAL HISTORY: ileus TECHNIQUE: 2D digital imaging was performed. COMPARISON: No exams were available for comparison FINDINGS: MEDIASTINUM: Normal. HEART: Normal. PULMONARY VASCULATURE: Normal. LUNGS: On the lateral view, there appears to be an infiltrate and/or effusion in the posterior aspect of the left lung. PLEURAL SPACE: See above. No pneumothorax BONE:Normal. OTHER FINDINGS:The tip of the right PICC line is seen in the right atrium. A nasogastric tube is in place. The tip is beneath the hemidiaphragm presumably in the stomach. IMPRESSION: 1. Question of an infiltrate and/or effusion in the left lung base. 2. Tip of the right PICC line is seen in the right atrium. 3. The tip of the nasogastric tube is beneath the left hemidiaphragm presumably in the stomach. DATA REPOSITORY: RADIATION DOSE DELIVERED:
--- NOTE | 2019-10-16 10:00 | DI.RAD_ITS ---
EXAM: 2D digital imaging was performed. CLINICAL HISTORY: SBO. COMPARISON: No exams were available for comparison TECHNIQUE: Supine and uprightSupine and Lateral views of the abdomen was performed. FINDINGS: BOWEL GAS PATTERN: There are distended loops of small bowel suggesting at least partial obstruction. The tip of the nasogastric tube is seen in the stomach. CALCIFICATIONS: No radiopaque calcifications. OSSEOUS STRUCTURES: Normal for age. OTHER FINDINGS: None. IMPRESSION: Findings consistent with small-bowel obstruction. DATA REPOSITORY: RADIATION DOSE DELIVERED:
--- NOTE | 2019-10-16 10:27 | W.PM.PROGNOT ---
Date of Service Date of service: 10/16/19 Time of Service: 10:27 Assessment and Plan Assessment and plan (1) Ileus: Status: Acute Assessment and plan: He is clinically improved although did have a large amount of NG output and has not passed flatus. Abdominal films from today show air filled loops of small bowel. CT from yesterday reviewed and compared to last month's images. The left groin fluid collection is unchanged and is not felt to be the cause of a bowel obstruction. Continue NG, await bowel activity. Subjective Subjective Interval history since last seen: Patient reports he feels much better than yesterday. No significant pain No flatus. Last BM yesterday am Exam Narrative Exam Narrative: Alert, no distress Abdomen soft, prominent but not tense distension. No tenderness. Soft fullness in left groin but not tender or firm. No obvious bowel present. Objective Objective Clinical Data: Abnormal lab results 10/15/19 10/15/19 10/15/19 Range/Units 13:22 19:37 19:37 RBC 2.99 L (4.50-6.00) m/cumm Hgb 9.2 L D (13.5-17.5) g/dL Hct 28.2 L D (40.0-50.0) % MCV (80-95) fL Plt Count 440 H (130-400) x1000/uL Absolute Lymphocytes (1.2-3.4) k/cumm Absolute Monocytes (0.11-0.7) k/cumm Sodium 135 L (136-145) mmol/L Potassium 5.6 H (3.5-5.1) mmol/L Carbon Dioxide 33.7 H (21.0-32.0) mmol/L Anion Gap -0.7 L (3-11) mmol/L BUN 34 H 38 H (7-18) mg/dL Creatinine 2.13 H 2.16 H (0.70-1.30) mg/dL Glucose 116 H (74-106) mg/dL Calcium 7.6 L (8.5-10.1) mg/dL ALT 7 L (16-63) U/L Total Protein 4.5 L (6.4-8.2) g/dL Albumin 1.6 L (3.4-5.0) g/dL 10/16/19 10/16/19 Range/Units 06:55 06:55 RBC 2.68 L (4.50-6.00) m/cumm Hgb 8.3 L (13.5-17.5) g/dL Hct 25.7 L (40.0-50.0) % MCV 95.9 H (80-95) fL Plt Count (130-400) x1000/uL Absolute Lymphocytes 0.80 L (1.2-3.4) k/cumm Absolute Monocytes 0.91 H (0.11-0.7) k/cumm Sodium (136-145) mmol/L Potassium (3.5-5.1) mmol/L Carbon Dioxide (21.0-32.0) mmol/L Anion Gap (3-11) mmol/L BUN 34 H (7-18) mg/dL Creatinine 1.80 H (0.70-1.30) mg/dL Glucose (74-106) mg/dL Calcium 7.5 L (8.5-10.1) mg/dL ALT 8 L (16-63) U/L Total Protein 4.5 L (6.4-8.2) g/dL Albumin 1.6 L (3.4-5.0) g/dL Vital Signs Temperature 98.6 F 10/16/19 07:45 Temperature Source Tympanic 10/16/19 07:45 Pulse 79 10/16/19 07:45 Pulse Rhythm Regular 10/16/19 07:45 Respiratory Rate 18 10/16/19 07:45 Respiratory Effort Non-Labored 10/16/19 07:45 Respiratory Depth Normal 10/16/19 07:45 Respiratory Pattern Normal 10/16/19 07:45 Blood Pressure 126/60 10/16/19 07:45 Pulse Oximetry 95 10/16/19 07:45 Oxygen Delivery Method Room Air 10/16/19 07:45 Oxygen Flow Rate 0 10/16/19 07:45 Pain Level 0 10/16/19 07:45 Intake & Output 10/15/19 10/15/19 10/16/19 11:59 23:59 11:59 Intake Total 70 / 1530 1460 / 1530 2150 / 2150 Output Total 1949 / 1949 850 / 850 Balance 70 / -420 -490 / -420 1300 / 1300 Weight 163 lb 5.8 oz 166 lb 14.239 oz Intake: IV 70 / 1530 1460 / 1530 2150 / 2150 Output: Gastric Drainage 1650 / 1650 350 / 350 Left Nare 1650 / 1650 350 / 350 Urine 300 / 300 500 / 500 Other: Urine Color Dark Analilia Dark Analilia Urine Appearance Clear Clear Comment No voiding reported by previous shift. Stool Occult Blood Positive Stool Size Large Stool Characteristics Liquid Brown Gastric Occult Blood Left Nare Positive Positive Laboratory Results WBC 7.58 k/cumm (4.4-10.8) 10/16/19 06:55 RBC 2.68 m/cumm (4.50-6.00) L 10/16/19 06:55 Hgb 8.3 g/dL (13.5-17.5) L 10/16/19 06:55 Hct 25.7 % (40.0-50.0) L 10/16/19 06:55 MCV 95.9 fL (80-95) H 10/16/19 06:55 MCH 31.0 pg (27.0-33.0) 10/16/19 06:55 MCHC 32.3 g/dL (32.0-36.0) 10/16/19 06:55 RDW 13.2 % (11.8-14.1) 10/16/19 06:55 Plt Count 381 x1000/uL (130-400) 10/16/19 06:55 MPV 8.4 fL (8.0-11.0) 10/16/19 06:55 Immature Gran % 0.7 % 10/16/19 06:55 Neutrophils % 75.0 10/16/19 06:55 Lymphocytes % 10.6 10/16/19 06:55 Monocytes % 12.0 10/16/19 06:55 Eosinophils % 1.6 10/16/19 06:55 Basophils % 0.1 10/16/19 06:55 Absolute Neutrophils 5.69 k/cumm (1.2-6.7) 10/16/19 06:55 Absolute Lymphocytes 0.80 k/cumm (1.2-3.4) L 10/16/19 06:55 Absolute Monocytes 0.91 k/cumm (0.11-0.7) H 10/16/19 06:55 Absolute Eosinophils 0.12 k/cumm (0.0-0.7) 10/16/19 06:55 Absolute Basophils 0.01 k/cumm (0.0-0.2) 10/16/19 06:55 PT 10.4 sec (9.3-11.0) 10/15/19 20:00 INR 1.0 (0.9-1.1) 10/15/19 20:00 Sodium 138 mmol/L (136-145) 10/16/19 06:55 Potassium 4.7 mmol/L (3.5-5.1) 10/16/19 06:55 Chloride 104 mmol/L (98-107) 10/16/19 06:55 Carbon Dioxide 30.3 mmol/L (21.0-32.0) 10/16/19 06:55 Anion Gap 3.7 mmol/L (3-11) 10/16/19 06:55 BUN 34 mg/dL (7-18) H 10/16/19 06:55 Creatinine 1.80 mg/dL (0.70-1.30) H 10/16/19 06:55 Estimated GFR/1.73 m2 36.87 (mL/min/1.73m2) 10/16/19 06:55 Glucose 99 mg/dL (74-106) 10/16/19 06:55 Lactate 0.6 mmol/L (0.6-1.4) 10/16/19 06:55 Calcium 7.5 mg/dL (8.5-10.1) L 10/16/19 06:55 Magnesium 2.0 mg/dL (1.8-2.4) 10/16/19 06:55 Total Bilirubin 0.3 mg/dL (0.2-1.0) 10/16/19 06:55 AST 19 U/L (15-37) 10/16/19 06:55 ALT 8 U/L (16-63) L 10/16/19 06:55 Alkaline Phosphatase 63 U/L (46-116) 10/16/19 06:55 Total Protein 4.5 g/dL (6.4-8.2) L 10/16/19 06:55 Albumin 1.6 g/dL (3.4-5.0) L 10/16/19 06:55 Procalcitonin 0.6 ng/mL 10/15/19 19:37
--- NOTE | 2019-10-16 10:28 | CMPROGNOTE_ITS ---
- If Service Date Differs Date of service: 10/16/19 Time of Service: 10:28 Care Management Progress Note S/O: Dawit stated that he was feeling much better today when CM met with him. He expressed frustration for the lack of communication between the provider and nursing staff. CM made sure all of his immediate needs were attended to. He stated that he is receiving good care. He reported that he had a bowel movement, which made him feel much better. He continues to have an NG tube for the Ileus vs SBO. CM will continue to follow. A: Willy is a 74 year old male admitted to [facility] on 09/21/19, now back in med surge from SWB level 1 for SBO vs Ileus. P: Anticipate Dawit will return to his IV abx treatment once he is medically cleared, and will be transitioned back to SWB 1 level of care. He will continue to work with PT, as recommended. He may need community supports once ready to discharge. CM will continue to follow.
[2019-10-16] MEDS: Pantoprazole 40 MG VIAL IVP (10:44)
[2019-10-16] MEDS: Normal Saline Flush 10 ML SYR IVP ×2 (10:45→20:39)
--- NOTE | 2019-10-16 11:02 | IN_ITS ---
Date of service: 10/16/19 Time of Service: 11:02 PT Notes Visit Reasons: Ileus vs sm bowel obstruction,C.diff colitis,MSSA Physical Therapy Inpatient Initial Evaluation Date: Referring Doctor: Ralph Brito MD PT Orders: PT CONSULT: Extended-stay weakness. Limited ability. Precautions: Fall. Standard. Activity as tolerated. Patient Profile/Admitting Diagnosis: Dawit converts back to acute level of care as of 10/15/2019 due to new diagnosis of small bowel obstruction. He is re- evaluated for continued skilled PT as of today. Patient is a 74-year-old male who presented to the ED on 09/21/2019 via EMS with chief complaints of generalized weakness that started 2 days prior to admission that has resulted to a fall on his way to his bathroom in his apartment and a left abdominal discomfort. Patient is diagnosed with pneumonia with MSSA bacteremia, acute rhabdomyolysis, increased opponent, back pain with question of vertebral osteomyelitis or discitis, neck pain, transaminitis, and ambulatory dysfunction. Patient tested negative for COVID-19 on as of 09/14/2019 at 20 3:16 PM. Orders were sent in for physical therapy to address impairments and strength, balance, and activity tolerance. PMHX: Medical History (Updated 09/22/19 @ 10:34 by Shi Alonzo MD) Erectile dysfunction (Inactive) Surgical History (Updated 09/22/19 @ 10:32 by Shi Alonzo MD) S/P left inguinal hernia repair (Acute) Social History/Home Situation: Patient lives alone on the second floor of an apartment building with no steps to enter. He uses an elevator to reach the entrance of his apartment. He is independent with all activities of daily living not requiring any assistive ambulatory device nor adaptive equipment. He still drives. His passed 3 years ago and he has been seeing a counselor to manage his grief. Equipment Owned/DME: Patient states that his used a walker and a cane which can both be available to him if needed. Subjective: Dawit was a little upset about finding out that he will have physical therapy today because he was just recently told that he is to stay in bed to manage his recently diagnosed small bowel obstruction. He was agreeable to a PT consult after explanation that continued mobility is a very good way of stimulating his bowel function. Objective: General Observation: Patient lying in bed. IV access in right UE. R-sided torticollis (acquired?). Genu varum. Mental Status: Alert and oriented as to person place and time Pain: 1-2/10 in the neck area especially with end range of neck motions ROM: Neck: Rotation to L about 40 degrees. Rotation to R about 45 degrees. Lateral flexion to L abut 25 degrees. Lateral flexion to R about 30 degrees. Right Upper Extremity: Shoulder Flexion WFL. Shoulder abduction WFL. Elbow flexion WFL. Wrist flexion WFL. Opening and closing of hand WFL. Left Upper Extremity: Shoulder Flexion WFL. Shoulder abduction WFL. Elbow flexion WFL. Wrist flexion WFL. Opening and closing of hand WFL. Right Lower Extremity: Hip flexion WFL. Hip abduction WFL. Knee flexion WFL. Ankle dorsiflexion WFL. Ankle plantarflexion WFL. Left Lower Extremity: Hip flexion WFL. Hip abduction WFL. Knee flexion WFL. Ankle dorsiflexion WFL. Ankle plantarflexion WFL. Strength: Right Upper Extremity: Shoulder flexors 4/5. Shoulder abductors 4/5. Elbow flexors 4/5. Elbow extensors 4/5. Signal Intelligence/Electronic Warfare strong. Left Upper Extremity: Shoulder flexors 4/5. Shoulder abductors 4/5. Elbow flexors 4/5. Elbow extensors 4/5. Signal Intelligence/Electronic Warfare strong. Right Lower Extremity: Hip flexors 4/5. Hip abductors 4/5. Knee flexors 4/5. Knee extensors 4/5. Ankle dorsiflexors 4/5. Ankle plantarflexors 4-/5. Left Lower Extremity:Hip flexors 4/5. Hip abductors 4/5. Knee flexors 4/5. Knee extensors 4/5. Ankle dorsiflexors 4/5. Ankle plantarflexors 4-/5. Sensation: Intact as to pain and pressure on bilateral lower extremities. Bed Mobility/Transfers: Rolling I Supine to sit I with HOB to 30 degrees and using BUE for support Sit to supine I with HOB to 30 degrees and using BUE for support Sit to stand Supervision using BUE for support, minimal cueing required Stand to sit Supervision using BUE for support, minimal cueing required Bed to chair Supervision using BUE for support, minimal cueing required Chair to bed Supervision using BUE for support, minimal cueing required Gait: Patient was able to tolerate level surface ambulation of 150 feet with contact-guard assist using front wheeled walker with full weight bearing. Chayo decreased. Denied increased discomfort and pain and abdominal area. Balance: Static Sitting: Normal Dynamic Sitting: Normal Static Standing: Fair Dynamic Standing: Fair Special Tests: Mobility Limitations Standardized Measure [facility] AM-PAC 6 clicks Basic Mobility Inpatient Short Form: Raw Score: 17 CMS Score: 50% deficit Informed Consent/Education: Patient instructed in purpose of PT consult and continued plan of care via swing bed status. Assessment: Patient demonstrates continued need for the use of an assistive ambulatory device for all mobility ADL performance now downgraded back to requiring supervision assist for safety, new diagnosis of small bowel obstruction, and due to recent fall this week. Continued skilled services will be provided under acute level of care in order to achieve established goals. Patient is a 74-year-old male who presented to the ED on 09/21/2019 via EMS with chief complaints of generalized weakness that started 2 days prior to admission that has resulted to a fall on his way to his bathroom in his apartment and a left abdominal discomfort. Patient is diagnosed with pneumonia with MSSA bacteremia, acute rhabdomyolysis, increased opponent, back pain with question of vertebral osteomyelitis or discitis, neck pain, transaminitis, and ambulatory dysfunction. Patient tested negative for COVID-19 on as of 09/14/2019 at 20 3:16 PM. Orders were sent in for physical therapy to address continued impairments with strength, balance, and activity tolerance due to Functional mobility decline. Generalized muscle weakness. Neck pain Patient presents with clinical signs and symptoms consistent with current/admitting diagnoses that have resulted to mobility limitations, gait instability, generalized weakness, and impairment of motor control as demonstrated by the following impairment level findings: 1. Decreased strength to neck, B UE, B LE major muscle groups 2. Impaired dynamic standing balance 3. Impaired activity tolerance 4. Limitation of joint range of motion in cervical area Impairments are contributing to the following functional limitations: 1. Increased dependence with transfers 2. Inability to safely ambulate without assistive device and physical assistance 3. Increase completion time for mobility ADL performance 4. Increased fall risk Patient is assessed as a 14614 moderate complexity based on the following: History: 74-year-old male waiting for impairment level findings, functional limitations, and medical history as indicated above Examination: Demonstrable impairment in strength, balance, and range of motion with underlying impairments and functional limitations as documented above Presentation: Evolving Decision Makin moderate complexity Goals: Goals X1 week 1. Supine-Sit independent 2. Sit-Supine independent 3. Sit-Stand independent 4. Stand-Sit independent 5. Bed-Chair independent 6. Chair-Bed independent 7. Independent gait on level surface with use of least restrictive device for at least 800 feet without report of pain nor dyspnea 8. Independent stair negotiation while holding onto bilateral rails for at least 10 steps without report of pain nor dyspnea 9. Independent with home exercise program 10. Good static and dynamic standing balance/tolerance Plan of Care/Treatment Plan: 1-2x/day, 7 days/week x 1 week. Initiate Physical Therapy intervention for strengthening, bed mobility, transfers, gait, stairs, balance training, use of assistive device. PT Intervention: Session today consisted of initial physical therapy evaluation for acute level of care as well as education training on mobility ADL performance using the front wheeled walker. DISCHARGE RECOMMENDATIONS: Patient will benefit from home health PT services in order to progress mobility level using least restrictive assistive ambulatory device, assess home safety, identify additional equipment needs, and establish a functional maintenance program that will increase ability of patient to remain at home. TREATMENT CODE/TIME: 65922 x 25 minutes, 27009 x 25 minutes beginning at 11:02 AM. Thank you very much for this referral. Ariane Poe PT, DPT, CLT [facility] Inpatient PT at [place], [place]
--- NOTE | 2019-10-16 11:47 | PGE_ITS ---
Date of Service Date of service: 10/16/19 Time of Service: 11:48 Assessment and Plan Assessment and plan (1) Ileus: Status: Acute Assessment and plan: keep NPO; continue NG for decompression of stomach/SB; continue IV fluid hydration. Continue IV Flagyl for his C. difficile enterocolitis.. (2) Clostridium difficile enterocolitis: Status: Acute Assessment and plan: Continue IV Flagyl (3) MSSA bacteremia: Status: Acute Assessment and plan: cont. Ancef 2 gm IV q8hr through 11/08 (4) Lumbar discitis: Status: Acute Assessment and plan: continue Ancef as above; repeat LS spine MRI upon completion of antibiotics (5) BPH (benign prostatic hyperplasia): Status: Chronic Assessment and plan: Proscar and Tamsulosin on hold while NPO; restart w hen able to take PO; may need intermittent straight cath if he shows urinary retention Qualifiers: Lower urinary tract symptom presence: symptoms present Lower urinary tract symptom detail: urinary retention Qualified Code(s): N40.1 - Benign prostatic hyperplasia with lower urinary tract symptoms; R33.8 - Other retention of urine (6) Essential hypertension: Status: Acute Assessment and plan: BP meds on hold for now (7) Urinary retention: Status: Acute Assessment and plan: monitor urine output and post void residuals, cath prn >500 mL (8) Acute confusion: Status: Acute Assessment and plan: Much more alert and animated. I think the acute confusion was secondary to his infection and small bowel obstruction dehydration Subjective Subjective Interval history since last seen: Patient is feeling better today. He is much more alert and oriented. He denies any abdominal pain. He reports he had a large bowel movement however the nurse states he only had a small smear. He also states he is passing flatus. Repeat x-rays this morning shows continued partial small bowel obstruction. NG has put out 2 L since it was placed last night. I discussed his case with Dr. Mckeon who recommends continued NG drainage with low intermittent wall suction and hold off any feedings for now. She believes that his partial small bowel obstruction secondary to adhesions from his previous open cholecystectomy rather than due to his C. difficile infection. Exam Narrative Exam Narrative: Alert and oriented. Lungs are clear to auscultation Heart is regular rate and rhythm without murmur rub or gallop. Abdomen soft nondistended with bowel sounds in all four quadrants but still with a high-pitched quality to them. There is no guarding or rebound tenderness. Extremities without peripheral cyanosis or edema. Objective Objective Clinical Data: Abnormal lab results 10/15/19 10/15/19 10/15/19 Range/Units 13:22 19:37 19:37 RBC 2.99 L (4.50-6.00) m/cumm Hgb 9.2 L D (13.5-17.5) g/dL Hct 28.2 L D (40.0-50.0) % MCV (80-95) fL Plt Count 440 H (130-400) x1000/uL Absolute Lymphocytes (1.2-3.4) k/cumm Absolute Monocytes (0.11-0.7) k/cumm Sodium 135 L (136-145) mmol/L Potassium 5.6 H (3.5-5.1) mmol/L Carbon Dioxide 33.7 H (21.0-32.0) mmol/L Anion Gap -0.7 L (3-11) mmol/L BUN 34 H 38 H (7-18) mg/dL Creatinine 2.13 H 2.16 H (0.70-1.30) mg/dL Glucose 116 H (74-106) mg/dL Calcium 7.6 L (8.5-10.1) mg/dL ALT 7 L (16-63) U/L Total Protein 4.5 L (6.4-8.2) g/dL Albumin 1.6 L (3.4-5.0) g/dL 10/16/19 10/16/19 Range/Units 06:55 06:55 RBC 2.68 L (4.50-6.00) m/cumm Hgb 8.3 L (13.5-17.5) g/dL Hct 25.7 L (40.0-50.0) % MCV 95.9 H (80-95) fL Plt Count (130-400) x1000/uL Absolute Lymphocytes 0.80 L (1.2-3.4) k/cumm Absolute Monocytes 0.91 H (0.11-0.7) k/cumm Sodium (136-145) mmol/L Potassium (3.5-5.1) mmol/L Carbon Dioxide (21.0-32.0) mmol/L Anion Gap (3-11) mmol/L BUN 34 H (7-18) mg/dL Creatinine 1.80 H (0.70-1.30) mg/dL Glucose (74-106) mg/dL Calcium 7.5 L (8.5-10.1) mg/dL ALT 8 L (16-63) U/L Total Protein 4.5 L (6.4-8.2) g/dL Albumin 1.6 L (3.4-5.0) g/dL Vital Signs Temperature 37 C 10/16/19 07:45 Temperature Source Tympanic 10/16/19 07:45 Pulse 79 10/16/19 07:45 Pulse Rhythm Regular 10/16/19 07:45 Respiratory Rate 18 10/16/19 07:45 Respiratory Effort Non-Labored 10/16/19 07:45 Respiratory Depth Normal 10/16/19 07:45 Respiratory Pattern Normal 10/16/19 07:45 Blood Pressure 126/60 10/16/19 07:45 Pulse Oximetry 95 10/16/19 07:45 Oxygen Delivery Method Room Air 10/16/19 07:45 Oxygen Flow Rate 0 10/16/19 07:45 Pain Level 0 10/16/19 07:45 Intake & Output 10/15/19 10/15/19 10/16/19 11:59 23:59 11:59 Intake Total 70 / 1530 1460 / 1530 2150 / 2150 Output Total 1949 / 1949 850 / 850 Balance 70 / -420 -490 / -420 1300 / 1300 Weight 74.1 kg 75.7 kg Intake: IV 70 / 1530 1460 / 1530 215 / 2149 Output: Gastric Drainage 1650 / 1650 350 / 350 Left Nare 1650 / 1650 350 / 350 Urine 300 / 300 500 / 500 Other: Urine Color Dark Analilia Dark Analilia Urine Appearance Clear Clear Comment No voiding reported by previous shift. Stool Occult Blood Positive Stool Size Large Stool Characteristics Liquid Brown Gastric Occult Blood Left Nare Positive Positive Laboratory Results WBC 7.58 k/cumm (4.4-10.8) 10/16/19 06:55 RBC 2.68 m/cumm (4.50-6.00) L 10/16/19 06:55 Hgb 8.3 g/dL (13.5-17.5) L 10/16/19 06:55 Hct 25.7 % (40.0-50.0) L 10/16/19 06:55 MCV 95.9 fL (80-95) H 10/16/19 06:55 MCH 31.0 pg (27.0-33.0) 10/16/19 06:55 MCHC 32.3 g/dL (32.0-36.0) 10/16/19 06:55 RDW 13.2 % (11.8-14.1) 10/16/19 06:55 Plt Count 381 x1000/uL (130-400) 10/16/19 06:55 MPV 8.4 fL (8.0-11.0) 10/16/19 06:55 Immature Gran % 0.7 % 10/16/19 06:55 Neutrophils % 75.0 10/16/19 06:55 Lymphocytes % 10.6 10/16/19 06:55 Monocytes % 12.0 10/16/19 06:55 Eosinophils % 1.6 10/16/19 06:55 Basophils % 0.1 10/16/19 06:55 Absolute Neutrophils 5.69 k/cumm (1.2-6.7) 10/16/19 06:55 Absolute Lymphocytes 0.80 k/cumm (1.2-3.4) L 10/16/19 06:55 Absolute Monocytes 0.91 k/cumm (0.11-0.7) H 10/16/19 06:55 Absolute Eosinophils 0.12 k/cumm (0.0-0.7) 10/16/19 06:55 Absolute Basophils 0.01 k/cumm (0.0-0.2) 10/16/19 06:55 PT 10.4 sec (9.3-11.0) 10/15/19 20:00 INR 1.0 (0.9-1.1) 10/15/19 20:00 Sodium 138 mmol/L (136-145) 10/16/19 06:55 Potassium 4.7 mmol/L (3.5-5.1) 10/16/19 06:55 Chloride 104 mmol/L (98-107) 10/16/19 06:55 Carbon Dioxide 30.3 mmol/L (21.0-32.0) 10/16/19 06:55 Anion Gap 3.7 mmol/L (3-11) 10/16/19 06:55 BUN 34 mg/dL (7-18) H 10/16/19 06:55 Creatinine 1.80 mg/dL (0.70-1.30) H 10/16/19 06:55 Estimated GFR/1.73 m2 36.87 (mL/min/1.73m2) 10/16/19 06:55 Glucose 99 mg/dL (74-106) 10/16/19 06:55 Lactate 0.6 mmol/L (0.6-1.4) 10/16/19 06:55 Calcium 7.5 mg/dL (8.5-10.1) L 10/16/19 06:55 Magnesium 2.0 mg/dL (1.8-2.4) 10/16/19 06:55 Total Bilirubin 0.3 mg/dL (0.2-1.0) 10/16/19 06:55 AST 19 U/L (15-37) 10/16/19 06:55 ALT 8 U/L (16-63) L 10/16/19 06:55 Alkaline Phosphatase 63 U/L (46-116) 10/16/19 06:55 Total Protein 4.5 g/dL (6.4-8.2) L 10/16/19 06:55 Albumin 1.6 g/dL (3.4-5.0) L 10/16/19 06:55 Procalcitonin 0.6 ng/mL 10/15/19 19:37
--- NOTE | 2019-10-16 12:20 | W.PM.PROGNOT ---
Date of Service Date of service: 10/16/19 Time of Service: 12:21 Assessment and Plan Assessment and plan (1) SBO (small bowel obstruction): Status: Acute Assessment and plan: pt did have an open kassandra. he had laparscopic appendectomy. He does not seem to be any pain. i don't think the hernia fluid is a loop of bowel. He has no pain in the groin. He has no pain anywhere.. Still no appetite and not passing gas. But, he looks better than yesterday. He didn't do any walking yesterday. pt says stools are liquid. not overly bloody. no appetite yet. xray- still looks very locked up. I don't feel there is any sign of ischemic bowel at this time. I think it more mechanical obstruction from his open kassandra. repeat abdom XR ordered for am. -encourage ambulation. Ok to clamp NGT for this. also can have water and ice chips. cont w/ conservative measure. -consider TPN as his albumin is so low. he does have a PICC in place. He is starting to get ascties in the abdom and mild edema of LE. -using IV flagyl for C. diff treatment. -still on IV ancef for MSSA. -Last pm his NGT outpt was coffee grounds- so I did switch him over to a PPI. -He had a rodríguez placed to monitor urine output/fluid management. This prob can be d/c'ed on saturday. however, pt has been having problems w/ urinary retention. Per hosp discretion. -anemia- appears to be more from chronic Dx and poor nutrition. He did receive IV Iron on 10/14. (2) Clostridium difficile enterocolitis: Status: Acute (3) Lumbar discitis: Status: Acute (4) MSSA bacteremia: Status: Acute (5) Urinary retention: Status: Acute (6) BPH (benign prostatic hyperplasia): Status: Chronic Qualifiers: Lower urinary tract symptom detail: urinary retention Lower urinary tract symptom presence: symptoms present Qualified Code(s): N40.1 - Benign prostatic hyperplasia with lower urinary tract symptoms; R33.8 - Other retention of urine (7) Anemia of chronic disease: Status: Acute Subjective Subjective Interval history since last seen: Pt is doing OK no headaches. No CP or SOB. no productive cough. no dysuria. no leg pain or swelling. He had xsm stool- brown and liquid hem+. and a smear of stool. Not passing any gas. He does not have any abdominal pain. NGT- 800 out since midnight. greenish. His urine output has been better. his VS are normal for him and he is not running a temp. He says he does not feel hungry. His urine output was much better over night. He was up w/ PT today. He needs to be up walking more. Can calmp NGT to walk. using IV flagyl for C. diff treatment. still on IV ancef for MSSA. Last pm his NGT outpt was coffee grounds- so I did switch him over to a PPI Exam Chest Chest: normal inspection of the chest Resp Effort & Inspection: normal respiratory effort and able to speak in complete sentences Auscultation: clear to auscultation bilaterally GI Inspection: normal to inspection and non-distended Palpation: soft and No ascites Auscultation: high-pitched sounds and hyperactive bowel sounds Other: no pain. Skin Other: no breakdown or redness Extrem General: no clubbing, cyanosis or edema Objective Objective Clinical Data: Abnormal lab results 10/15/19 10/15/19 10/15/19 Range/Units 13:22 19:37 19:37 RBC 2.99 L (4.50-6.00) m/cumm Hgb 9.2 L D (13.5-17.5) g/dL Hct 28.2 L D (40.0-50.0) % MCV (80-95) fL Plt Count 440 H (130-400) x1000/uL Absolute Lymphocytes (1.2-3.4) k/cumm Absolute Monocytes (0.11-0.7) k/cumm Sodium 135 L (136-145) mmol/L Potassium 5.6 H (3.5-5.1) mmol/L Carbon Dioxide 33.7 H (21.0-32.0) mmol/L Anion Gap -0.7 L (3-11) mmol/L BUN 34 H 38 H (7-18) mg/dL Creatinine 2.13 H 2.16 H (0.70-1.30) mg/dL Glucose 116 H (74-106) mg/dL Calcium 7.6 L (8.5-10.1) mg/dL ALT 7 L (16-63) U/L Total Protein 4.5 L (6.4-8.2) g/dL Albumin 1.6 L (3.4-5.0) g/dL 10/16/19 10/16/19 Range/Units 06:55 06:55 RBC 2.68 L (4.50-6.00) m/cumm Hgb 8.3 L (13.5-17.5) g/dL Hct 25.7 L (40.0-50.0) % MCV 95.9 H (80-95) fL Plt Count (130-400) x1000/uL Absolute Lymphocytes 0.80 L (1.2-3.4) k/cumm Absolute Monocytes 0.91 H (0.11-0.7) k/cumm Sodium (136-145) mmol/L Potassium (3.5-5.1) mmol/L Carbon Dioxide (21.0-32.0) mmol/L Anion Gap (3-11) mmol/L BUN 34 H (7-18) mg/dL Creatinine 1.80 H (0.70-1.30) mg/dL Glucose (74-106) mg/dL Calcium 7.5 L (8.5-10.1) mg/dL ALT 8 L (16-63) U/L Total Protein 4.5 L (6.4-8.2) g/dL Albumin 1.6 L (3.4-5.0) g/dL Vital Signs Temperature 37 C 10/16/19 07:45 Temperature Source Tympanic 10/16/19 07:45 Pulse 79 10/16/19 07:45 Pulse Rhythm Regular 10/16/19 07:45 Respiratory Rate 18 10/16/19 07:45 Respiratory Effort Non-Labored 10/16/19 07:45 Respiratory Depth Normal 10/16/19 07:45 Respiratory Pattern Normal 10/16/19 07:45 Blood Pressure 126/60 10/16/19 07:45 Pulse Oximetry 95 10/16/19 07:45 Oxygen Delivery Method Room Air 10/16/19 07:45 Oxygen Flow Rate 0 10/16/19 07:45 Pain Level 0 10/16/19 07:45 Intake & Output 10/15/19 10/16/19 10/16/19 23:59 11:59 23:59 Intake Total 1460 / 1530 2149 Output Total 1949 / 1949 850 / 850 Balance -490 / -420 1300 / 1300 Weight 75.7 kg Intake: IV 1460 / 1530 2149 Output: Gastric Drainage 1650 / 1650 350 / 350 Left Nare 1650 / 1650 350 / 350 Urine 300 / 300 500 / 500 Other: Urine Color Dark Analilia Dark Analilia Urine Appearance Clear Clear Comment No voiding reported by previous shift. Gastric Occult Blood Left Nare Positive Positive Laboratory Results WBC 7.58 k/cumm (4.4-10.8) 10/16/19 06:55 RBC 2.68 m/cumm (4.50-6.00) L 10/16/19 06:55 Hgb 8.3 g/dL (13.5-17.5) L 10/16/19 06:55 Hct 25.7 % (40.0-50.0) L 10/16/19 06:55 MCV 95.9 fL (80-95) H 10/16/19 06:55 MCH 31.0 pg (27.0-33.0) 10/16/19 06:55 MCHC 32.3 g/dL (32.0-36.0) 10/16/19 06:55 RDW 13.2 % (11.8-14.1) 10/16/19 06:55 Plt Count 381 x1000/uL (130-400) 10/16/19 06:55 MPV 8.4 fL (8.0-11.0) 10/16/19 06:55 Immature Gran % 0.7 % 10/16/19 06:55 Neutrophils % 75.0 10/16/19 06:55 Lymphocytes % 10.6 10/16/19 06:55 Monocytes % 12.0 10/16/19 06:55 Eosinophils % 1.6 10/16/19 06:55 Basophils % 0.1 10/16/19 06:55 Absolute Neutrophils 5.69 k/cumm (1.2-6.7) 10/16/19 06:55 Absolute Lymphocytes 0.80 k/cumm (1.2-3.4) L 10/16/19 06:55 Absolute Monocytes 0.91 k/cumm (0.11-0.7) H 10/16/19 06:55 Absolute Eosinophils 0.12 k/cumm (0.0-0.7) 10/16/19 06:55 Absolute Basophils 0.01 k/cumm (0.0-0.2) 10/16/19 06:55 PT 10.4 sec (9.3-11.0) 10/15/19 20:00 INR 1.0 (0.9-1.1) 10/15/19 20:00 Sodium 138 mmol/L (136-145) 10/16/19 06:55 Potassium 4.7 mmol/L (3.5-5.1) 10/16/19 06:55 Chloride 104 mmol/L (98-107) 10/16/19 06:55 Carbon Dioxide 30.3 mmol/L (21.0-32.0) 10/16/19 06:55 Anion Gap 3.7 mmol/L (3-11) 10/16/19 06:55 BUN 34 mg/dL (7-18) H 10/16/19 06:55 Creatinine 1.80 mg/dL (0.70-1.30) H 10/16/19 06:55 Estimated GFR/1.73 m2 36.87 (mL/min/1.73m2) 10/16/19 06:55 Glucose 99 mg/dL (74-106) 10/16/19 06:55 Lactate 0.6 mmol/L (0.6-1.4) 10/16/19 06:55 Calcium 7.5 mg/dL (8.5-10.1) L 10/16/19 06:55 Magnesium 2.0 mg/dL (1.8-2.4) 10/16/19 06:55 Total Bilirubin 0.3 mg/dL (0.2-1.0) 10/16/19 06:55 AST 19 U/L (15-37) 10/16/19 06:55 ALT 8 U/L (16-63) L 10/16/19 06:55 Alkaline Phosphatase 63 U/L (46-116) 10/16/19 06:55 Total Protein 4.5 g/dL (6.4-8.2) L 10/16/19 06:55 Albumin 1.6 g/dL (3.4-5.0) L 10/16/19 06:55 Procalcitonin 0.6 ng/mL 10/15/19 19:37
--- NOTE | 2019-10-16 15:00 | W.NUTCONSULT ---
Date of service: 10/16/19 Time of Service: 15:00 Nutritional Consult ASSESSMENT: Willy continues to be NPO due to SBO, with > 5 days of poor or no PO. Estimated Needs: 1875 kcal (25 kcal/kg), 75 g protein (1 g pro/kg), 2250 ml fluid (30 ml/kg). NUTRITIONAL DIAGNOSIS: moderate malnutrition in context of acute illness due to inadequate intake of nutrients > 5 days INTERVENTION: TPN via picc line Clinimix (4.25/10) 2000 ml Amino Acids 4.25%/Dextrose 10% providing 1020 kcal, 82 g protein 83cc/hour 20% lipids 500 mg/dl providing 500 kcal/day 21 ml/hour 1520 kcal meeting 81% of estimated kcal needs,109% protein needs. will make recommendations to modify nutrients as needed standard electrolytes, MVI, trace elements Clinical Pharmacist to monitor labs and adjust formula as needed monitor daily CBC, CMP, Magnesium, Phos until normalized MONITORING AND EVALUATION: Clinical Pharmacist to monitor labs and adjust formula as needed monitor daily CBC, CMP, Magnesium, Phos until normalized Time Spent in Nutritional Counseling and Treatment: 10 min spent with patient
[2019-10-16 15:25] VITALS: BP 139/65; PULSE 84; RESP 19; TEMP 36.7; O2SAT 96
--- NOTE | 2019-10-16 15:25 | W.NUTRFU ---
Date of service: 10/16/19 Time of Service: 15:25 Nutritional Follow up NOTE: Addendeum: TPN order written for Dayanaraix (10/08) 2000 ml providing 1490 kcal, 250 ml 20% lipids providing 500 calories providing total of 1990 kcal, 100 g protein, 50 g fat. This meet > 100% nutrient needs providing 26 kcal, kg, 1.3 g protein/kg. Concur with TPN order and will monitor and make necessary recommendations. Monitor daily Mg, Phos, Glu, K and replete. At risk for refeeding syndrome as poor intake x multiple days with low BMI for age. Time Spent in Nutritional Counseling and Treatment: 0 time
[2019-10-16] MEDS: Enoxaparin 40 MG/0.4 ML SYR SC (16:30)
[2019-10-16 18:38] LABS: INR 1.1 (0.9-1.1); Prothrombin Time 10.7 sec (9.3-11.0)
[2019-10-16 19:29] VITALS: BP 133/60; PULSE 77; RESP 19; TEMP 37.1; O2SAT 95
[2019-10-16 23:05] VITALS: BP 146/56; PULSE 76; RESP 16; TEMP 36.6; O2SAT 95
[2019-10-17] VITALS (7 sets, daily range): BP systolic 133–162; BP diastolic 55–70; PULSE 77–83; RESP 16–19; TEMP 36.3–37.6; O2SAT 95–97
[2019-10-17] MEDS: ceFAZolin 2 GM/50 ML BAG IVPB ×3 (03:19→19:57)
[2019-10-17] MEDS: ACETAMINOPHEN 1,000 MG/100 ML BTL 400 MG IVPB ×2 (04:09→16:33)
[2019-10-17] MEDS: metroNIDAZOLE 500 MG/100 ML BAG 400 MG IVPB ×4 (04:29→21:26)
[2019-10-17] MEDS: Normal Saline 1,000 ML 150 ML IV (04:29)
[2019-10-17] MEDS: Normal Saline Flush 10 ML SYR IVP (05:57)
[2019-10-17] MEDS: Enoxaparin 40 MG/0.4 ML SYR SC (07:41)
[2019-10-17] MEDS: Lidocaine 5% Patch 1 PATCH TP (07:42)
--- NOTE | 2019-10-17 08:00 | DI.RAD_ITS ---
EXAM: XR ABDOMEN FLAT UPRIGHT CLINICAL HISTORY: SBO TECHNIQUE: 2D digital imaging was performed. COMPARISON: CR XR ABDOMEN FLAT UPRIGHT from 10/16/2019 FINDINGS: A nasogastric tube is again noted projecting in the stomach. The side hole is near the GE junction. There are dilated loops of small bowel seen throughout the abdomen. Gas is also seen within the co lauren. The degree of dilatation is not significantly changed. IMPRESSION: Stable diffuse bowel dilatation.
[2019-10-17 08:02] LABS: Abs Immature Grans 0.08 k/cumm (0.0-0.09); Absolute Basophil Count 0.02 k/cumm (0.0-0.2); Absolute Eosinophil Count 0.15 k/cumm (0.0-0.7); Absolute Lymphocyte Count 0.83 k/cumm (1.2-3.4); Absolute Monocyte Count 0.78 k/cumm (0.11-0.7); Absolute Neutrophil Count 5.03 k/cumm (1.2-6.7); Basophils % 0.3; Eosinophils % 2.2; HCT 25.5 % (40.0-50.0); HGB 8.2 g/dL (13.5-17.5); Immature Grans % 1.2 %; Mean Corp. HGB Concentration 32.2 g/dL (32.0-36.0); Mean Corpuscular Hemoglobin 31.2 pg (27.0-33.0); Mean Platelet Volume 8.5 fL (8.0-11.0); Monocytes % 11.3; Platelet Count 349 x1000/uL (130-400); RBC 2.63 m/cumm (4.50-6.00); RBC Distribution Width 12.8 % (11.8-14.1); White Blood Cell Count 6.89 k/cumm (4.4-10.8)
[2019-10-17 08:12] LABS: Anion Gap 3.7 mmol/L (3-11); BUN 26 mg/dL (7-18); CO2 28.3 mmol/L (21.0-32.0); CREATININE 1.13 mg/dL (0.70-1.30); Calcium 7.8 mg/dL (8.5-10.1); Chloride 108 mmol/L (98-107); Glucose 129 mg/dL (74-106); Potassium 4.3 mmol/L (3.5-5.1); Sodium 140 mmol/L (136-145)
[2019-10-17 08:15] LABS: PHOSPHORUS 3.1 mg/dL (2.6-4.7)
--- NOTE | 2019-10-17 09:06 | DI.VRAD_ITS ---
Addendum created by Melanie Ha MD on 10/17/2019 9:11:25 AM EDT THIS REPORT CONTAINS FINDINGS THAT MAY BE CRITICAL TO PATIENT CARE. The findings were verbally communicated via telephone conference with Dr Lowery at 9:11 AM EDT on 10/17/2019. The findings were acknowledged and understood. Initial report created on 10/17/2019 9:06:50 AM EDT PROCEDURE INFORMATION: Exam: XR Abdomen, 2 Views Exam date and time: 10/17/2019 8:43 AM Age: 74 years old Clinical indication: Other: Sbo TECHNIQUE: Imaging protocol: XR of the abdomen. Views: 2 Views. COMPARISON: CR XR ABDOMEN FLAT UPRIGHT 10/16/2019 9:42 AM FINDINGS: Tubes, catheters and devices: The enteric tube terminates in the stomach but the gastric side hole is at the gastroesophageal junction. Recommend advancement of the tube 8 cm. Gastrointestinal tract: Multiple loops of dilated bowel with air-fluid levels may represent obstruction or ileus. Intraperitoneal space: Normal. No free air. Bones/joints: Degenerative changes in the thoracolumbar spine IMPRESSION: 1. Multiple loops of dilated bowel with air-fluid levels may represent obstruction or ileus. 2. The enteric tube terminates in the stomach but the gastric side hole is at the gastroesophageal junction. Recommend advancement of the tube 8 cm. Dictated and Authenticated by: Melanie Ha MD. Ordering:MARTY Kraft MD
[2019-10-17] MEDS: Pantoprazole 40 MG VIAL IVP (10:06)
--- NOTE | 2019-10-17 11:57 | PT.INTREAT ---
Date of service: 10/17/19 Time of Service: 08:45 PT Notes Visit Reasons: Ileus vs sm bowel obstruction,C.diff colitis,MSSA [facility] Date:10/17/2019 PRECAUTIONS: Fall. Standard. Contact due to C-Diff SUBJECTIVE: Patient states that he is doing quite well and is actually getting ready for a walk this morning as encouraged by working with PT. OBJECTIVE: General Observation: Patient lying supine in bed with head of bed to 30. NG tube in place as well as IV through the right upper extremity, Hansen catheter in place Mental Status: Alert and oriented x4 Pain: Nothing severe this morning BED MOBILITY/TRANSFERS Supine-sit: Independent Sit-supine: Independent Sit-stand: Supervision using BUE for support with front wheeled walker Stand-sit: Supervision using BUE for support GAIT Assistive Device: Front wheel walker Weight bearing: Full weight bearing Assist: Supervision Distance: 200 feet with supervision patient did not require any rest break during this round of walk. Patient had a small break long-term through his walk however his chayo was not affected during the active ambulation. Deviation: Chayo increasing. For therapeutic exercise patient was in the seated position mainly for this. He completed the following exercises with corrective instruction Shoulder flexion x 20 Scapular rows x 20 Hip flexion x 20 Heel lifts and toe lifts x 20 LAQ 2 x 20 Sit to stand x 5 ASSESSMENT: Patient appears to be doing quite well this morning. He was able to handle his own chayo and required only very minimal cues for progression. Patient was able to take his own therapeutic respirate was only about 2 minutes at a time and was to remain in stand during his ambulation. During patient's therapeutic exercise training he was able to take verbal encouragement and minor mechanical adjustments were necessary for appropriate muscle facilitation condition PLAN: 1x/day, 7 days/week x 1 week. Continue with physical Therapy intervention for strengthening, bed mobility, transfers, gait, stairs, balance training, use of assistive device. TREATMENT CODE/TIME: 26902 x 15minutes, 61226 x 15 minutes beginning at 8:45.
[2019-10-17] MEDS: Normal Saline 1,000 ML 100 ML IV (16:32)
--- NOTE | 2019-10-17 16:44 | CMPROGNOTE_ITS ---
- If Service Date Differs Date of service: 10/17/19 Time of Service: 16:44 Care Management Progress Note S/O: Dawit is up ambulating with PT today completing several loops in the [place]. His ileus continues, his NG tube needed to be advance today. He is trying to keep his spirts and continues to make jokes here and there. He is currently acute anticipate he will transition back to SB1 to complete his abx once he is able. A: Willy is a 74 year old male admitted to [facility] on 09/21/19, now back in med surge from [facility] level 1 for SBO vs Ileus. P: Anticipate Dawit will return to his IV abx treatment once he is medically cleared, and will be transitioned back to [facility] 1 level of care. He will continue to work with PT, as recommended. He may need community supports once ready to discharge. CM will continue to follow.
--- NOTE | 2019-10-17 16:48 | W.PM.PROGNOT ---
Date of Service Date of service: 10/17/19 Time of Service: 16:48 Assessment and Plan Assessment and plan (1) Sepsis: Status: Resolved (2) Clostridium difficile enterocolitis: Status: Acute Assessment and plan: Causing ileus. Treat with IV flagyl, NGT. Surgery following. (3) Ileus: Status: Acute Assessment and plan: Continue TPN as NPO; continue NGT, treat C.diff. Appreciate surgical help. Anticipate repeat acute abdominal series in the next 48 hours. (4) MSSA bacteremia: Status: Acute Assessment and plan: with lumbar discitis, ?osteomyelitis. Continue Ancef 2 gm IV q8hr through 11/08. Transthoracic echo negative for endocarditis. (5) Lumbar discitis: Status: Acute Assessment and plan: as above. (6) BPH (benign prostatic hyperplasia): Status: Chronic Assessment and plan: Resume Proscar and Tamsulosin once permitted to have PO. For now, monitor for urinary retention. Qualifiers: Lower urinary tract symptom presence: symptoms present Lower urinary tract symptom detail: urinary retention Qualified Code(s): N40.1 - Benign prostatic hyperplasia with lower urinary tract symptoms; R33.8 - Other retention of urine (7) Essential hypertension: Status: Acute Assessment and plan: BP meds on hold for now (8) Urinary retention: Status: Acute Assessment and plan: straight cath prn >500 cc (9) Toxic metabolic encephalopathy: Status: Acute Assessment and plan: In setting of sepsis. Doing better with treatment of infection. Continue to monitor mental status. (10) Discharge planning issues: Status: Acute Assessment and plan: DNR/DNI. To remain in the hospital through 11/08 for completion of abx. (11) DVT prophylaxis: Status: Acute Assessment and plan: Lovenox SC Subjective Subjective Interval history since last seen: States he feels better. Remains with NGT in to suction. No BM's today - just flatus. Did have diarrhea yesterday. Denies dizziness, chest pain, shortness of breath, nausea. Per nursing, has an occasional cough - patient and I think it is because of the NGT. No fever. Tmax 37.6. Per general surgery, NGT should stay in overnight. Exam Narrative Exam Narrative: General: Irritable elderly male, A&Ox2-3, appears comfortable in bed with NGT in, occasional dry cough HEENT: EOMI, MMM, NGT in left nostril Heart: RRR, no m/r/g Lungs: CTAB Abdomen: soft, hypoactive bowel sounds Extremities: no e/c/c BLE's Objective Objective Clinical Data: Abnormal lab results 10/17/19 10/17/19 Range/Units 07:30 07:30 RBC 2.63 L (4.50-6.00) m/cumm Hgb 8.2 L (13.5-17.5) g/dL Hct 25.5 L (40.0-50.0) % MCV 97.0 H (80-95) fL Absolute Lymphocytes 0.83 L (1.2-3.4) k/cumm Absolute Monocytes 0.78 H (0.11-0.7) k/cumm Chloride 108 H (98-107) mmol/L BUN 26 H (7-18) mg/dL Glucose 129 H (74-106) mg/dL Calcium 7.8 L (8.5-10.1) mg/dL Vital Signs Temperature 37.6 C H 10/17/19 16:33 Temperature Source Tympanic 10/17/19 15:45 Pulse 82 10/17/19 15:45 Pulse Rhythm Regular 10/17/19 14:15 Respiratory Rate 18 10/17/19 15:45 Respiratory Effort Non-Labored 10/17/19 14:15 Respiratory Depth Normal 10/17/19 14:15 Respiratory Pattern Normal 10/17/19 14:15 Blood Pressure 162/68 H 10/17/19 15:45 Pulse Oximetry 95 10/17/19 15:45 Oxygen Delivery Method Room Air 10/17/19 15:45 Oxygen Flow Rate 0 10/17/19 15:45 Fraction of Inspired Oxygen (FIO2) 21 10/17/19 10:18 Pain Level 0 10/17/19 15:45 Intake & Output 10/16/19 10/17/19 10/17/19 23:59 11:59 23:59 Intake Total 1320 / 3570 3501 / 3501 Output Total 950 / 1800 1750 / 2750 1000 / 2750 Balance 370 / 1770 1751 / 751 -1000 / 751 Weight 76 kg Intake: IV 1320 / 3570 3381 / 3381 Oral 120 / 120 Output: Gastric Drainage 400 / 750 750 / 750 Left Nare 400 / 750 750 / 750 Urine 550 / 1050 1000 / 2000 1000 / 2000 Other: Urine Color Yellow Light Analilia Dark Analilia Urine Appearance Clear Clear Hematuria Stool Size Smear Moderate Stool Characteristics Liquid Laboratory Results WBC 6.89 k/cumm (4.4-10.8) 10/17/19 07:30 RBC 2.63 m/cumm (4.50-6.00) L 10/17/19 07:30 Hgb 8.2 g/dL (13.5-17.5) L 10/17/19 07:30 Hct 25.5 % (40.0-50.0) L 10/17/19 07:30 MCV 97.0 fL (80-95) H 10/17/19 07:30 MCH 31.2 pg (27.0-33.0) 10/17/19 07:30 MCHC 32.2 g/dL (32.0-36.0) 10/17/19 07:30 RDW 12.8 % (11.8-14.1) 10/17/19 07:30 Plt Count 349 x1000/uL (130-400) 10/17/19 07:30 MPV 8.5 fL (8.0-11.0) 10/17/19 07:30 Immature Gran % 1.2 % 10/17/19 07:30 Neutrophils % 73.0 10/17/19 07:30 Lymphocytes % 12.0 10/17/19 07:30 Monocytes % 11.3 10/17/19 07:30 Eosinophils % 2.2 10/17/19 07:30 Basophils % 0.3 10/17/19 07:30 Absolute Neutrophils 5.03 k/cumm (1.2-6.7) 10/17/19 07:30 Absolute Lymphocytes 0.83 k/cumm (1.2-3.4) L 10/17/19 07:30 Absolute Monocytes 0.78 k/cumm (0.11-0.7) H 10/17/19 07:30 Absolute Eosinophils 0.15 k/cumm (0.0-0.7) 10/17/19 07:30 Absolute Basophils 0.02 k/cumm (0.0-0.2) 10/17/19 07:30 PT 10.7 sec (9.3-11.0) 10/16/19 18:15 INR 1.1 (0.9-1.1) 10/16/19 18:15 Sodium 140 mmol/L (136-145) 10/17/19 07:30 Potassium 4.3 mmol/L (3.5-5.1) 10/17/19 07:30 Chloride 108 mmol/L (98-107) H 10/17/19 07:30 Carbon Dioxide 28.3 mmol/L (21.0-32.0) 10/17/19 07:30 Anion Gap 3.7 mmol/L (3-11) 10/17/19 07:30 BUN 26 mg/dL (7-18) H 10/17/19 07:30 Creatinine 1.13 mg/dL (0.70-1.30) D 10/17/19 07:30 Estimated GFR/1.73 m2 >= 60.00 (mL/min/1.73m2) 10/17/19 07:30 Glucose 129 mg/dL (74-106) H 10/17/19 07:30 Lactate 0.6 mmol/L (0.6-1.4) 10/16/19 06:55 Calcium 7.8 mg/dL (8.5-10.1) L 10/17/19 07:30 Phosphorus 3.1 mg/dL (2.6-4.7) 10/17/19 07:30 Magnesium 2.0 mg/dL (1.8-2.4) 10/16/19 06:55 Total Bilirubin 0.3 mg/dL (0.2-1.0) 10/16/19 06:55 AST 19 U/L (15-37) 10/16/19 06:55 ALT 8 U/L (16-63) L 10/16/19 06:55 Alkaline Phosphatase 63 U/L (46-116) 10/16/19 06:55 Total Protein 4.5 g/dL (6.4-8.2) L 10/16/19 06:55 Albumin 1.6 g/dL (3.4-5.0) L 10/16/19 06:55 Procalcitonin 0.6 ng/mL 10/15/19 19:37 Acute abdominal series: 1. Multiple loops of dilated bowel with air-fluid levels may represent obstruction or ileus. 2. The enteric tube terminates in the stomach but the gastric side hole is at the gastroesophageal junction. Recommend advancement of the tube 8 cm. (advanced since)
[2019-10-17] MEDS: Insulin Aspart 300 UNITS/3 ML PEN SC (19:14)
[2019-10-18 03:30] VITALS: BP 155/67; PULSE 71; RESP 17; TEMP 36.6; O2SAT 95
[2019-10-18] MEDS: ceFAZolin 2 GM/50 ML BAG IVPB ×3 (03:35→19:29)
[2019-10-18] MEDS: metroNIDAZOLE 500 MG/100 ML BAG 400 MG IVPB (04:32)
[2019-10-18] MEDS: Normal Saline 1,000 ML 100 ML IV (06:39)
[2019-10-18] MEDS: Normal Saline Flush 10 ML SYR IVP (06:39)
[2019-10-18 07:23] LABS: Abs Immature Grans 0.08 k/cumm (0.0-0.09); Absolute Basophil Count 0.02 k/cumm (0.0-0.2); Absolute Eosinophil Count 0.11 k/cumm (0.0-0.7); Absolute Lymphocyte Count 0.88 k/cumm (1.2-3.4); Absolute Monocyte Count 0.89 k/cumm (0.11-0.7); Absolute Neutrophil Count 5.91 k/cumm (1.2-6.7); Basophils % 0.3; Eosinophils % 1.4; HCT 26.1 % (40.0-50.0); HGB 8.4 g/dL (13.5-17.5); Lymphocytes % 11.2; Mean Corp. HGB Concentration 32.2 g/dL (32.0-36.0); Mean Corpuscular Hemoglobin 30.8 pg (27.0-33.0); Mean Corpuscular Volume 95.6 fL (80-95); Mean Platelet Volume 8.2 fL (8.0-11.0); Monocytes % 11.3; Neutrophils % 74.8; Platelet Count 356 x1000/uL (130-400); RBC 2.73 m/cumm (4.50-6.00); RBC Distribution Width 12.5 % (11.8-14.1); White Blood Cell Count 7.89 k/cumm (4.4-10.8)
[2019-10-18 07:31] LABS: Anion Gap 1.5 mmol/L (3-11); BUN 18 mg/dL (7-18); CO2 28.5 mmol/L (21.0-32.0); CREATININE 0.88 mg/dL (0.70-1.30); Calcium 8.2 mg/dL (8.5-10.1); Chloride 108 mmol/L (98-107); Glucose 115 mg/dL (74-106); Potassium 4.2 mmol/L (3.5-5.1); Sodium 138 mmol/L (136-145)
[2019-10-18 07:41] LABS: Magnesium 1.7 mg/dL (1.8-2.4); PHOSPHORUS 2.8 mg/dL (2.6-4.7)
[2019-10-18 07:45] VITALS: BP 150/65; PULSE 72; RESP 18; TEMP 36.7; O2SAT 96
[2019-10-18] MEDS: Enoxaparin 40 MG/0.4 ML SYR SC (07:45)
[2019-10-18] MEDS: Lidocaine 5% Patch 1 PATCH TP (07:52)
--- NOTE | 2019-10-18 10:28 | PT.INTREAT ---
Date of service: 10/18/19 Time of Service: 09:00 PT Notes Visit Reasons: Ileus vs sm bowel obstruction,C.diff colitis,MSSA [facility] Date:10/18/2019 PRECAUTIONS: Fall. Standard. Contact due to C-Diff SUBJECTIVE: Patient states that he is doing okay for the most part. OBJECTIVE: General Observation: Patient lying supine in bed with head of bed to 30. NG tube in place as well as IV through the left and right upper extremity, Hansen catheter in place Mental Status: Alert and oriented x4 Pain: Nothing severe this morning BED MOBILITY/TRANSFERS Supine-sit: Independent Sit-supine: Independent Sit-stand: Supervision using BUE for support with front wheeled walker Stand-sit: Supervision using BUE for support GAIT Assistive Device: Front wheel walker Weight bearing: Full weight bearing Assist: Supervision Distance: 10 feet with supervision, patient was unable to leave the room as he was attached to NGT. He performed three 1 min round of walking in place. He was able to stand and pivot to commode under supervision as he had to go to the bathroom half way through treatment. He was able to stand and pivot back to starting position on supervision and with management of his medical lines.. Deviation: Chayo increasing. For therapeutic exercise patient was in the seated position mainly for this. He completed the following exercises with corrective instruction Shoulder flexion x 20 Scapular rows x 20 with green Biceps curls with 3 # weights 2 x 10 Triceps extension under graded manual resistance x10 each Hip flexion x 20 Heel lifts and toe lifts x 20 LAQ 2 x 20 Sit to stand x 5 ASSESSMENT: Patient appears to be doing about the same. He was motivated to get up and walk but was limited by his tubing and medical lines. He had more active involvement today and was eager for more exercises even if they were limited to bed side. PLAN: 1x/day, 7 days/week x 1 week. Continue with physical Therapy intervention for strengthening, bed mobility, transfers, gait, stairs, balance training, use of assistive device. TREATMENT CODE/TIME: 62637 x 10minutes, 51571 x 20 minutes beginning at 9:00.
[2019-10-18] MEDS: metroNIDAZOLE 500 MG/100 ML BAG 100 MG IVPB ×3 (10:35→22:04)
[2019-10-18] MEDS: Pantoprazole 40 MG VIAL IVP (10:35)
--- NOTE | 2019-10-18 11:50 | W.PM.PROGNOT ---
Date of Service Date of service: 10/18/19 Time of Service: 11:50 Assessment and Plan Assessment and plan (1) Ileus: Status: Acute Assessment and plan: Patient is clinically improving. NG clamp trial with possible removal this afternoon if he does not have any symptoms and low residual. Ice chips and sips only today if NG removed, will plan to continue TPN though tomorrow at least. Subjective Subjective Interval history since last seen: Feeling better No abdominal pain Loose stool this am and passing flatus Feels less distended Exam Narrative Exam Narrative: No acute distress Abdomen soft, non tender, not distended. No left groin tenderness or hernia noted Objective Objective Clinical Data: Abnormal lab results 10/18/19 10/18/19 10/18/19 Range/Units 05:56 06:45 06:45 RBC 2.73 L (4.50-6.00) m/cumm Hgb 8.4 L (13.5-17.5) g/dL Hct 26.1 L (40.0-50.0) % MCV 95.6 H (80-95) fL Absolute Lymphocytes 0.88 L (1.2-3.4) k/cumm Absolute Monocytes 0.89 H (0.11-0.7) k/cumm Chloride 108 H (98-107) mmol/L Anion Gap 1.5 L (3-11) mmol/L Glucose 115 H (74-106) mg/dL Calcium 8.2 L (8.5-10.1) mg/dL Magnesium 1.7 L (1.8-2.4) mg/dL Vital Signs Temperature 98.1 F 10/18/19 07:45 Temperature Source Tympanic 10/18/19 07:45 Pulse 72 10/18/19 07:45 Pulse Rhythm Regular 10/18/19 07:45 Respiratory Rate 18 10/18/19 07:45 Respiratory Effort Non-Labored 10/18/19 07:45 Respiratory Depth Normal 10/18/19 07:45 Respiratory Pattern Normal 10/18/19 07:45 Blood Pressure 150/65 H 10/18/19 07:45 Pulse Oximetry 96 10/18/19 07:45 Oxygen Delivery Method Room Air 10/18/19 07:45 Oxygen Flow Rate 0 10/18/19 07:45 Fraction of Inspired Oxygen (FIO2) 21 10/18/19 10:02 Pain Level 0 10/18/19 07:45 Intake & Output 10/17/19 10/17/19 10/18/19 11:59 23:59 11:59 Intake Total 3501 / 5597.666 2096.666 / 5597.666 1035.667 / 1035.667 Output Total 1750 / 4350 2600 / 4350 1810 / 1810 Balance 1751 / 1247.666 -503.334 / 1247.666 -774.333 / -774.333 Weight 167 lb 8.821 oz Intake: IV 3381 / 5477.666 2096.666 / 5477.666 1035.667 / 1035.667 Oral 120 / 120 Output: Gastric Drainage 750 / 1650 900 / 1650 310 / 310 Left Nare 750 / 1650 900 / 1650 310 / 310 Urine 1000 / 2700 1700 / 2700 1300 / 1300 Stool 200 / 200 Other: Urine Color Light Analilia Dark Analilia Light Analilia Urine Appearance Clear Hematuria Clear Stool Size Moderate Moderate Stool Characteristics Liquid Soft Liquid Brown Black Laboratory Results WBC 7.89 k/cumm (4.4-10.8) 10/18/19 06:45 RBC 2.73 m/cumm (4.50-6.00) L 10/18/19 06:45 Hgb 8.4 g/dL (13.5-17.5) L 10/18/19 06:45 Hct 26.1 % (40.0-50.0) L 10/18/19 06:45 MCV 95.6 fL (80-95) H 10/18/19 06:45 MCH 30.8 pg (27.0-33.0) 10/18/19 06:45 MCHC 32.2 g/dL (32.0-36.0) 10/18/19 06:45 RDW 12.5 % (11.8-14.1) 10/18/19 06:45 Plt Count 356 x1000/uL (130-400) 10/18/19 06:45 MPV 8.2 fL (8.0-11.0) 10/18/19 06:45 Immature Gran % 1.0 % 10/18/19 06:45 Neutrophils % 74.8 10/18/19 06:45 Lymphocytes % 11.2 10/18/19 06:45 Monocytes % 11.3 10/18/19 06:45 Eosinophils % 1.4 10/18/19 06:45 Basophils % 0.3 10/18/19 06:45 Absolute Neutrophils 5.91 k/cumm (1.2-6.7) 10/18/19 06:45 Absolute Lymphocytes 0.88 k/cumm (1.2-3.4) L 10/18/19 06:45 Absolute Monocytes 0.89 k/cumm (0.11-0.7) H 10/18/19 06:45 Absolute Eosinophils 0.11 k/cumm (0.0-0.7) 10/18/19 06:45 Absolute Basophils 0.02 k/cumm (0.0-0.2) 10/18/19 06:45 PT 10.7 sec (9.3-11.0) 10/16/19 18:15 INR 1.1 (0.9-1.1) 10/16/19 18:15 Sodium 138 mmol/L (136-145) 10/18/19 05:56 Potassium 4.2 mmol/L (3.5-5.1) 10/18/19 05:56 Chloride 108 mmol/L (98-107) H 10/18/19 05:56 Carbon Dioxide 28.5 mmol/L (21.0-32.0) 10/18/19 05:56 Anion Gap 1.5 mmol/L (3-11) L 10/18/19 05:56 BUN 18 mg/dL (7-18) D 10/18/19 05:56 Creatinine 0.88 mg/dL (0.70-1.30) 10/18/19 05:56 Estimated GFR/1.73 m2 >= 60.00 (mL/min/1.73m2) 10/18/19 05:56 Glucose 115 mg/dL (74-106) H 10/18/19 05:56 Lactate 0.6 mmol/L (0.6-1.4) 10/16/19 06:55 Calcium 8.2 mg/dL (8.5-10.1) L 10/18/19 05:56 Phosphorus 2.8 mg/dL (2.6-4.7) 10/18/19 06:45 Magnesium 1.7 mg/dL (1.8-2.4) L 10/18/19 06:45 Total Bilirubin 0.3 mg/dL (0.2-1.0) 10/16/19 06:55 AST 19 U/L (15-37) 10/16/19 06:55 ALT 8 U/L (16-63) L 10/16/19 06:55 Alkaline Phosphatase 63 U/L (46-116) 10/16/19 06:55 Total Protein 4.5 g/dL (6.4-8.2) L 10/16/19 06:55 Albumin 1.6 g/dL (3.4-5.0) L 10/16/19 06:55 Procalcitonin 0.6 ng/mL 10/15/19 19:37
--- NOTE | 2019-10-18 12:03 | PDOC.CMPRO ---
- If Service Date Differs Date of service: 10/18/19 Time of Service: 12:03 Care Management Progress Note S/O: Dawit continues to have an NG tube in place, TPN and IV fluids. He remains on IV abx. Dawit continues to be acute at this time. Hansen cath will be removed today and continued monitoring of his post void residuals. CM will continue to assess for discharge needs. A: Willy is a 74 year old male admitted to [facility] on 09/21/19, [place] [facility] [place] for SBO vs Ileus. P: Anticipate Dawit will return to his IV abx treatment once he is medically cleared, and will be transitioned back to [facility] 1 level of care. He will continue to work with PT, as recommended. He may need community supports once ready to discharge. CM will continue to follow.
[2019-10-18 12:15] VITALS: BP 163/66; PULSE 75; RESP 18; TEMP 36; O2SAT 98
[2019-10-18] MEDS: MAGNESIUM SULFATE 2 GM/50 ML BAG IVPB (13:01)
--- NOTE | 2019-10-18 13:31 | W.PM.PROGNOT ---
Date of Service Date of service: 10/18/19 Time of Service: 13:39 Assessment and Plan Assessment and plan (1) Clostridium difficile enterocolitis: Start date: 10/18/19 Start time: 13:43 Status: Acute Assessment and plan: Causing ileus. Treat with IV flagyl, NGT. Surgery following, NGT clamped. (2) Ileus: Start date: 10/18/19 Start time: 13:43 Status: Acute Assessment and plan: Continue TPN as NPO; continue NGT, treat C.diff. Appreciate surgical help. Possible abd series if patient does not improve. IVF (3) MSSA bacteremia: Start date: 10/18/19 Start time: 13:43 Status: Acute Assessment and plan: with lumbar discitis, ?osteomyelitis. Continue Ancef 2 gm IV q8hr through 11/08. Transthoracic echo negative for endocarditis. (4) Lumbar discitis: Start date: 10/18/19 Start time: 13:44 Status: Acute Assessment and plan: as above. Continue pain management with tylenol and lidoderm patch. (5) BPH (benign prostatic hyperplasia): Start date: 10/18/19 Start time: 13:44 Status: Chronic Assessment and plan: Resume Proscar and Tamsulosin once permitted to have PO. For now. Remove rodríguez and monitor urinary retention Qualifiers: Lower urinary tract symptom presence: symptoms present Lower urinary tract symptom detail: urinary retention Qualified Code(s): N40.1 - Benign prostatic hyperplasia with lower urinary tract symptoms; R33.8 - Other retention of urine (6) Essential hypertension: Start date: 10/18/19 Start time: 13:45 Status: Acute Assessment and plan: BP meds on hold for now (7) Urinary retention: Start date: 10/18/19 Start time: 13:45 Status: Acute Assessment and plan: straight cath prn >500 cc (8) Toxic metabolic encephalopathy: Start date: 10/18/19 Start time: 13:45 Status: Acute Assessment and plan: In setting of sepsis. Doing better with treatment of infection. Continue to monitor mental status. (9) Discharge planning issues: Start date: 10/18/19 Start time: 13:45 Status: Acute Assessment and plan: DNR/DNI. To remain in the hospital through 11/08 for completion of abx. (10) DVT prophylaxis: Start date: 10/18/19 Start time: 13:46 Status: Acute Assessment and plan: Lovenox SC Subjective Subjective Patient reports: feels better Interval history since last seen: Sitting up in bed. Feeling better, no abd pain, passing flatus. NGT clamped at this per surgery. Denies CP, SOB , N/V/D. Wound to head improved. Exam Narrative Exam Narrative: General: Pleasant elderly male, A&Ox2-3, appears comfortable in bed with NGT in, HEENT: EOMI, MMM, NGT in left nostril Heart: RRR, no m/r/g Lungs: Crackles to RLB, LLB clear Abdomen: soft, hypoactive bowel sounds Extremities: no e/c/c BLE's Objective Objective Clinical Data: Abnormal lab results 10/18/19 10/18/19 10/18/19 Range/Units 05:56 06:45 06:45 RBC 2.73 L (4.50-6.00) m/cumm Hgb 8.4 L (13.5-17.5) g/dL Hct 26.1 L (40.0-50.0) % MCV 95.6 H (80-95) fL Absolute Lymphocytes 0.88 L (1.2-3.4) k/cumm Absolute Monocytes 0.89 H (0.11-0.7) k/cumm Chloride 108 H (98-107) mmol/L Anion Gap 1.5 L (3-11) mmol/L Glucose 115 H (74-106) mg/dL Calcium 8.2 L (8.5-10.1) mg/dL Magnesium 1.7 L (1.8-2.4) mg/dL Vital Signs Temperature 36.0 C L 10/18/19 12:15 Temperature Source Tympanic 10/18/19 12:15 Pulse 75 10/18/19 12:15 Pulse Rhythm Regular 10/18/19 07:45 Respiratory Rate 18 10/18/19 12:15 Respiratory Effort Non-Labored 10/18/19 07:45 Respiratory Depth Normal 10/18/19 07:45 Respiratory Pattern Normal 10/18/19 07:45 Blood Pressure 163/66 H 10/18/19 12:15 Pulse Oximetry 98 10/18/19 12:15 Oxygen Delivery Method Room Air 10/18/19 12:15 Oxygen Flow Rate 0 10/18/19 12:15 Fraction of Inspired Oxygen (FIO2) 21 10/18/19 10:02 Pain Level 0 10/18/19 07:45 Intake & Output 10/17/19 10/18/19 10/18/19 23:59 11:59 23:59 Intake Total 2096.666 / 5597.666 1035.667 / 1035.667 Output Total 2600 / 4350 1810 / 1810 Balance -503.334 / 1247.666 -774.333 / -774.333 Intake: IV 2096.666 / 5477.666 1035.667 / 1035.667 Output: Gastric Drainage 900 / 1650 310 / 310 Left Nare 900 / 1650 310 / 310 Urine 1700 / 2700 1300 / 1300 Stool 200 / 200 Other: Urine Color Dark Analilia Light Analilia Yellow Urine Appearance Hematuria Clear Clear Urine Odor Normal Stool Size Moderate Stool Characteristics Soft Liquid Brown Black Voiding Methods Bedside Commode Laboratory Results WBC 7.89 k/cumm (4.4-10.8) 10/18/19 06:45 RBC 2.73 m/cumm (4.50-6.00) L 10/18/19 06:45 Hgb 8.4 g/dL (13.5-17.5) L 10/18/19 06:45 Hct 26.1 % (40.0-50.0) L 10/18/19 06:45 MCV 95.6 fL (80-95) H 10/18/19 06:45 MCH 30.8 pg (27.0-33.0) 10/18/19 06:45 MCHC 32.2 g/dL (32.0-36.0) 10/18/19 06:45 RDW 12.5 % (11.8-14.1) 10/18/19 06:45 Plt Count 356 x1000/uL (130-400) 10/18/19 06:45 MPV 8.2 fL (8.0-11.0) 10/18/19 06:45 Immature Gran % 1.0 % 10/18/19 06:45 Neutrophils % 74.8 10/18/19 06:45 Lymphocytes % 11.2 10/18/19 06:45 Monocytes % 11.3 10/18/19 06:45 Eosinophils % 1.4 10/18/19 06:45 Basophils % 0.3 10/18/19 06:45 Absolute Neutrophils 5.91 k/cumm (1.2-6.7) 10/18/19 06:45 Absolute Lymphocytes 0.88 k/cumm (1.2-3.4) L 10/18/19 06:45 Absolute Monocytes 0.89 k/cumm (0.11-0.7) H 10/18/19 06:45 Absolute Eosinophils 0.11 k/cumm (0.0-0.7) 10/18/19 06:45 Absolute Basophils 0.02 k/cumm (0.0-0.2) 10/18/19 06:45 PT 10.7 sec (9.3-11.0) 10/16/19 18:15 INR 1.1 (0.9-1.1) 10/16/19 18:15 Sodium 138 mmol/L (136-145) 10/18/19 05:56 Potassium 4.2 mmol/L (3.5-5.1) 10/18/19 05:56 Chloride 108 mmol/L (98-107) H 10/18/19 05:56 Carbon Dioxide 28.5 mmol/L (21.0-32.0) 10/18/19 05:56 Anion Gap 1.5 mmol/L (3-11) L 10/18/19 05:56 BUN 18 mg/dL (7-18) D 10/18/19 05:56 Creatinine 0.88 mg/dL (0.70-1.30) 10/18/19 05:56 Estimated GFR/1.73 m2 >= 60.00 (mL/min/1.73m2) 10/18/19 05:56 Glucose 115 mg/dL (74-106) H 10/18/19 05:56 Lactate 0.6 mmol/L (0.6-1.4) 10/16/19 06:55 Calcium 8.2 mg/dL (8.5-10.1) L 10/18/19 05:56 Phosphorus 2.8 mg/dL (2.6-4.7) 10/18/19 06:45 Magnesium 1.7 mg/dL (1.8-2.4) L 10/18/19 06:45 Total Bilirubin 0.3 mg/dL (0.2-1.0) 10/16/19 06:55 AST 19 U/L (15-37) 10/16/19 06:55 ALT 8 U/L (16-63) L 10/16/19 06:55 Alkaline Phosphatase 63 U/L (46-116) 10/16/19 06:55 Total Protein 4.5 g/dL (6.4-8.2) L 10/16/19 06:55 Albumin 1.6 g/dL (3.4-5.0) L 10/16/19 06:55 Procalcitonin 0.6 ng/mL 10/15/19 19:37
[2019-10-18 15:15] VITALS: BP 166/72; PULSE 79; RESP 18; TEMP 37.1; O2SAT 96
[2019-10-18] MEDS: Normal Saline 1,000 ML 30 ML IV (19:00)
[2019-10-18 19:40] VITALS: BP 158/73; PULSE 75; RESP 17; TEMP 37; O2SAT 96
[2019-10-18] MEDS: Lidocaine 2% Jelly 11 ML SYR UR (21:30)
[2019-10-18 23:42] VITALS: BP 162/72; PULSE 78; RESP 18; TEMP 36.3; O2SAT 95
[2019-10-19] MEDS: Lidocaine 2% Jelly 11 ML SYR UR (00:03)
[2019-10-19] MEDS: ceFAZolin 2 GM/50 ML BAG IVPB ×3 (03:23→20:22)
[2019-10-19 03:45] VITALS: BP 152/63; PULSE 810; RESP 18; TEMP 37.4; O2SAT 95
[2019-10-19] MEDS: metroNIDAZOLE 500 MG/100 ML BAG 100 MG IVPB ×4 (04:19→21:44)
[2019-10-19 07:40] LABS: HGB 8.9 g/dL (13.5-17.5); Mean Corpuscular Hemoglobin 30.7 pg (27.0-33.0); Mean Corpuscular Volume 93.1 fL (80-95); Mean Platelet Volume 8.4 fL (8.0-11.0); Platelet Count 359 x1000/uL (130-400); RBC Distribution Width 12.2 % (11.8-14.1); White Blood Cell Count 8.65 k/cumm (4.4-10.8)
[2019-10-19 07:49] LABS: Prothrombin Time 10.4 sec (9.3-11.0)
[2019-10-19] MEDS: Enoxaparin 40 MG/0.4 ML SYR SC (07:52)
[2019-10-19] MEDS: Lidocaine 5% Patch 1 PATCH TP (07:52)
[2019-10-19 07:56] LABS: ALT 6 U/L (16-63); AST 22 U/L (15-37); Albumin 1.7 g/dL (3.4-5.0); Alkaline Phosphatase 79 U/L (46-116); Anion Gap 3.4 mmol/L (3-11); BUN 16 mg/dL (7-18); Bilirubin, Total 0.3 mg/dL (0.2-1.0); CO2 27.6 mmol/L (21.0-32.0); CREATININE 0.85 mg/dL (0.70-1.30); Calcium 8.1 mg/dL (8.5-10.1); Chloride 105 mmol/L (98-107); Glucose 106 mg/dL (74-106); Magnesium 1.6 mg/dL (1.8-2.4); PHOSPHORUS 2.9 mg/dL (2.6-4.7); Potassium 3.9 mmol/L (3.5-5.1); Sodium 136 mmol/L (136-145); Total Protein 5.1 g/dL (6.4-8.2)
[2019-10-19 08:17] VITALS: BP 158/73; PULSE 89; RESP 18; TEMP 36.9; O2SAT 97
[2019-10-19] MEDS: Ondansetron O.D.T. 4 MG TABEF PO (09:43)
[2019-10-19] MEDS: Normal Saline Flush 10 ML SYR IVP ×2 (09:43→20:23)
[2019-10-19] MEDS: Pantoprazole 40 MG VIAL IVP (09:44)
--- NOTE | 2019-10-19 10:21 | PDOC.CMPRO ---
- If Service Date Differs Date of service: 10/19/19 Time of Service: 10:23 Care Management Progress Note S/O: Dawit was reviewed at interdisciplinary rounds. Per provider, he remains NPO, but his diet will be advanced to clear liquids this afternoon. He worked with PT today, and will continue to work with PT during his SWB stay, or until his goals are met. CM will continue to follow. A: Willy is a 74 year old male admitted to [facility] on 09/21/19, now back in [facility] from [facility] level 1 for SBO vs Ileus. P: Anticipate Dawit will return to his IV abx treatment once he is medically cleared, and will be transitioned back to SWB 1 level of care. He will continue to work with PT, as recommended. He may need community supports once ready to discharge. CM will continue to follow.
--- NOTE | 2019-10-19 10:25 | PGE_ITS ---
Date of Service Date of service: 10/19/19 Time of Service: Assessment and Plan Assessment and plan (1) Clostridium difficile enterocolitis: Start date: 10/19/19 Start time: 10:28 Status: Acute Assessment and plan: Causing ileus. Treat with IV flagyl, NGT discontinued. Started on clears. Nausea this am relieved with zofran. Surgery following. (2) Ileus: Start date: 10/19/19 Start time: :28 Status: Acute Assessment and plan: Continue TPN, until able to tolerate clears treat C.diff. Appreciate surgical help. Patient improving with BM this am. IVF (3) MSSA bacteremia: Start date: 10/19/19 Start time: 10:29 Status: Acute Assessment and plan: with lumbar discitis, ?osteomyelitis. Continue Ancef 2 gm IV q8hr through 11/08. Transthoracic echo negative for endocarditis. (4) Lumbar discitis: Start date: 10/19/19 Start time: :29 Status: Acute Assessment and plan: as above. Continue pain management with tylenol and lidoderm patch. (5) BPH (benign prostatic hyperplasia): Start date: 10/19/19 Status: Chronic Assessment and plan: Will Resume Proscar and Tamsulosin if patient tolerates clears Remove rodríguez and monitor urinary retention straight cath for urine greater than 500 cc Qualifiers: Lower urinary tract symptom presence: symptoms present Lower urinary tract symptom detail: urinary retention Qualified Code(s): N40.1 - Benign prostatic hyperplasia with lower urinary tract symptoms; R33.8 - Other retention of urine (6) Essential hypertension: Start date: 10/19/19 Start time: 10:30 Status: Acute Assessment and plan: BP meds on hold for now (7) Toxic metabolic encephalopathy: Start date: 10/19/19 Start time: 10:30 Status: Resolved Assessment and plan: At baseline confusion. Continue to monitor. (8) Discharge planning issues: Start date: 10/19/19 Start time: 10:31 Status: Acute Assessment and plan: DNR/DNI. To remain in the hospital through 11/08 for completion of abx. (9) DVT prophylaxis: Start date: 10/19/19 Start time: 10:31 Status: Acute Assessment and plan: Lovenox SC Above case discussed with Dr. Lowery who is in agreement Subjective Subjective Patient reports: feels better Interval history since last seen: Doing better. Sitting up in chair after working with PT. NGT dcd per surgery. Straight cath x 2 last night. Slight nausea this am, improved with zofran. Stooling. Denies Cp, SOB, N/V/D. Exam Narrative Exam Narrative: General: Pleasant elderly male, A&Ox2-3, appears com fortable in bed with NGT in, HEENT: EOMI, MMM, Heart: RRR, no m/r/g Lungs: LSC diminished bilaterally Abdomen: soft, hypoactive bowel sounds Extremities: no e/c/c BLE's Objective Objective Clinical Data: Abnormal lab results 10/19/19 10/19/19 Range/Units 06:25 06:25 RBC 2.90 L (4.50-6.00) m/cumm Hgb 8.9 L (13.5-17.5) g/dL Hct 27.0 L (40.0-50.0) % Calcium 8.1 L (8.5-10.1) mg/dL Magnesium 1.6 L (1.8-2.4) mg/dL ALT 6 L (16-63) U/L Total Protein 5.1 L (6.4-8.2) g/dL Albumin 1.7 L (3.4-5.0) g/dL Vital Signs Temperature 36.9 C 10/19/19 08:17 Temperature Source Tympanic 10/19/19 08:17 Pulse 89 10/19/19 08:17 Pulse Rhythm Regular 10/19/19 04:37 Respiratory Rate 18 10/19/19 08:17 Respiratory Effort Non-Labored 10/19/19 04:37 Respiratory Depth Normal 10/19/19 04:37 Respiratory Pattern Normal 10/19/19 04:37 Blood Pressure 158/73 H 10/19/19 08:17 Pulse Oximetry 97 10/19/19 08:17 Oxygen Delivery Method Room Air 10/19/19 08:17 Oxygen Flow Rate 0 10/19/19 08:17 Fraction of Inspired Oxygen (FIO2) 21 10/19/19 09:07 Pain Level 0 10/19/19 08:17 Intake & Output 10/18/19 10/18/19 10/19/19 11:59 23:59 11:59 Intake Total 1135.667 / 1769.167 633.5 / 1769.167 286 / 286 Output Total 1810 / 4340 2530 / 4340 1650 / 1650 Balance -674.333 / -2570.833 -1896.5 / -2570.833 -1364 / -1364 Weight 76.4 kg Intake: IV 1135.667 / 1769.167 633.5 / 1769.167 286 / 286 Output: Gastric Drainage 310 / 635 325 / 635 Left Nare 310 / 635 325 / 635 Urine 1300 / 2855 1555 / 2855 1100 / 1100 Post Void Residual 650 / 650 550 / 550 Stool 200 / 200 Other: Urine Color Light Analilia Yellow Straw Urine Appearance Clear Clear Clear Urine Odor Normal Comment patient still feels uncomfortable and bladder still feels full patient voided 120, bladder scanned for 400, straight titi'd for 550, re scanned for residual 20 Stool Occult Blood Positive Stool Size Moderate Small Moderate Stool Characteristics Soft Liquid Soft Liquid Brown Brown Black Voiding Methods Urinal Urinal Laboratory Results WBC 8.65 k/cumm (4.4-10.8) 10/19/19 06:25 RBC 2.90 m/cumm (4.50-6.00) L 10/19/19 06:25 Hgb 8.9 g/dL (13.5-17.5) L 10/19/19 06:25 Hct 27.0 % (40.0-50.0) L 10/19/19 06:25 MCV 93.1 fL (80-95) 10/19/19 06:25 MCH 30.7 pg (27.0-33.0) 10/19/19 06:25 MCHC 33.0 g/dL (32.0-36.0) 10/19/19 06:25 RDW 12.2 % (11.8-14.1) 10/19/19 06:25 Plt Count 359 x1000/uL (130-400) 10/19/19 06:25 MPV 8.4 fL (8.0-11.0) 10/19/19 06:25 Immature Gran % 1.0 % 10/18/19 06:45 Neutrophils % 74.8 10/18/19 06:45 Lymphocytes % 11.2 10/18/19 06:45 Monocytes % 11.3 10/18/19 06:45 Eosinophils % 1.4 10/18/19 06:45 Basophils % 0.3 10/18/19 06:45 Absolute Neutrophils 5.91 k/cumm (1.2-6.7) 10/18/19 06:45 Absolute Lymphocytes 0.88 k/cumm (1.2-3.4) L 10/18/19 06:45 Absolute Monocytes 0.89 k/cumm (0.11-0.7) H 10/18/19 06:45 Absolute Eosinophils 0.11 k/cumm (0.0-0.7) 10/18/19 06:45 Absolute Basophils 0.02 k/cumm (0.0-0.2) 10/18/19 06:45 PT 10.4 sec (9.3-11.0) 10/19/19 06:25 INR 1.0 (0.9-1.1) 10/19/19 06:25 ABG Sample Site Cancelled 10/19/19 08:14 ABG pH Cancelled 10/19/19 08:14 ABG pCO2 Cancelled 10/19/19 08:14 ABG pO2 Cancelled 10/19/19 08:14 ABG HCO3 Cancelled 10/19/19 08:14 ABG Total CO2 Cancelled 10/19/19 08:14 ABG O2 Saturation Cancelled 10/19/19 08:14 ABG Base Excess Cancelled 10/19/19 08:14 Oxygen Liter Flow Cancelled 10/19/19 08:14 FiO2 Cancelled 10/19/19 08:14 Sodium 136 mmol/L (136-145) 10/19/19 06:25 Potassium 3.9 mmol/L (3.5-5.1) 10/19/19 06:25 Chloride 105 mmol/L (98-107) 10/19/19 06:25 Carbon Dioxide 27.6 mmol/L (21.0-32.0) 10/19/19 06:25 Anion Gap 3.4 mmol/L (3-11) 10/19/19 06:25 BUN 16 mg/dL (7-18) 10/19/19 06:25 Creatinine 0.85 mg/dL (0.70-1.30) 10/19/19 06:25 Estimated GFR/1.73 m2 >= 60.00 (mL/min/1.73m2) 10/19/19 06:25 Glucose 106 mg/dL (74-106) 10/19/19 06:25 Lactate 0.6 mmol/L (0.6-1.4) 10/16/19 06:55 Calcium 8.1 mg/dL (8.5-10.1) L 10/19/19 06:25 Phosphorus 2.9 mg/dL (2.6-4.7) 10/19/19 06:25 Magnesium 1.6 mg/dL (1.8-2.4) L 10/19/19 06:25 Total Bilirubin 0.3 mg/dL (0.2-1.0) 10/19/19 06:25 AST 22 U/L (15-37) 10/19/19 06:25 ALT 6 U/L (16-63) L 10/19/19 06:25 Alkaline Phosphatase 79 U/L (46-116) 10/19/19 06:25 Total Protein 5.1 g/dL (6.4-8.2) L 10/19/19 06:25 Albumin 1.7 g/dL (3.4-5.0) L 10/19/19 06:25 Procalcitonin 0.6 ng/mL 10/15/19 19:37
[2019-10-19] MEDS: MAGNESIUM SULFATE 4 GM/100 ML BAG IVPB (10:59)
[2019-10-19] MEDS: Tamsulosin 0.4 MG CAPCR PO ×2 (11:24→20:22)
--- NOTE | 2019-10-19 11:51 | PTTR_ITS ---
PT Notes Visit Reasons: Ileus vs sm bowel obstruction,C.diff colitis,MSSA Inpatient Physical Therapy Treatment Note [facility] Date: 10/19/2019 Treatment time: 30 minutes/9- 9:30 AM Treatment: 9711 0?2 Pleasant, Cooperative and no abnormal pain noted other than some mild nausea. Treatment: The session consisted of ambulation while holding onto his IV pole with mild contact guarding for greater than 200 feet. Gait was stable. He then perform isotonic PRE to his quads with 4 pound weight 30 reps, and 2 pound dumbbells with his upper extremities in the form of bicep curls and overhead lifts x20 reps. Then practiced modified squats from chair to standing position numerous reps. Balancing activities. Disclaimer: This note was created using [employer] voice recognition software. It was reviewed for major content. However, there may be multiple small discrepancies and errors due to the voice recognition aspects of the software.
[2019-10-19 12:00] VITALS: BP 151/75; PULSE 80; RESP 17; TEMP 36.8; O2SAT 98
[2019-10-19 15:45] VITALS: BP 157/75; PULSE 79; RESP 17; TEMP 36.1; O2SAT 96
[2019-10-19] MEDS: Normal Saline 1,000 ML 30 ML IV (18:15)
[2019-10-19 20:21] VITALS: BP 153/71; PULSE 84; RESP 18; TEMP 36.7; O2SAT 96
[2019-10-19 23:44] VITALS: BP 146/67; PULSE 82; RESP 18; TEMP 36.8; O2SAT 96
[2019-10-20] MEDS: ceFAZolin 2 GM/50 ML BAG IVPB ×3 (03:17→20:41)
[2019-10-20] MEDS: metroNIDAZOLE 500 MG/100 ML BAG 100 MG IVPB ×4 (04:19→22:30)
[2019-10-20 04:25] VITALS: BP 131/85; PULSE 77; RESP 18; TEMP 36.3; O2SAT 96
[2019-10-20 06:55] LABS: HCT 24.2 % (40.0-50.0); Mean Corp. HGB Concentration 33.1 g/dL (32.0-36.0); Mean Corpuscular Hemoglobin 30.7 pg (27.0-33.0); Mean Corpuscular Volume 92.7 fL (80-95); Mean Platelet Volume 8.3 fL (8.0-11.0); Platelet Count 320 x1000/uL (130-400); RBC 2.61 m/cumm (4.50-6.00); RBC Distribution Width 12.5 % (11.8-14.1)
[2019-10-20 06:57] LABS: Anion Gap 4.7 mmol/L (3-11); BUN 19 mg/dL (7-18); CO2 26.3 mmol/L (21.0-32.0); CREATININE 0.97 mg/dL (0.70-1.30); Calcium 7.8 mg/dL (8.5-10.1); Chloride 105 mmol/L (98-107); Glucose 102 mg/dL (74-106); Magnesium 1.9 mg/dL (1.8-2.4); Sodium 136 mmol/L (136-145)
[2019-10-20 07:26] LABS: PHOSPHORUS 3.3 mg/dL (2.6-4.7)
[2019-10-20 08:08] VITALS: BP 118/58; PULSE 78; RESP 18; TEMP 36.9; O2SAT 95
[2019-10-20] MEDS: Pantoprazole 40 MG VIAL IVP (08:34)
[2019-10-20] MEDS: Lidocaine 5% Patch 1 PATCH TP (08:34)
[2019-10-20] MEDS: Enoxaparin 40 MG/0.4 ML SYR SC (08:34)
[2019-10-20] MEDS: Finasteride 5 MG TAB PO (08:35)
[2019-10-20] MEDS: Tamsulosin 0.4 MG CAPCR PO ×2 (08:35→20:41)
--- NOTE | 2019-10-20 09:15 | PT.INTREAT ---
Date of service: 10/20/19 Time of Service: 09:15 PT Notes Visit Reasons: Ileus vs sm bowel obstruction,C.diff colitis,MSSA Inpatient Physical Therapy Treatment Note Date:10/20/2019 PRECAUTIONS: Fall. Standard. Contact precautions due to C-Diff. Activity as tolerated SUBJECTIVE: Patient states that he has felt crappy in the past 2 days but today he woke up feeling good. Per nurse Tejas, patient is still having loose stools. OBJECTIVE: General Observation: Patient sitting on chair with IV in the right UE. Mental Status: Alert and oriented x4 Pain: None reported BED MOBILITY/TRANSFERS Supine-sit: Independent Sit-supine: Independent Sit-stand: Supervision using BUE for support with front wheeled walker Stand-sit: Supervision using BUE for support GAIT Assistive Device: Front wheel walker Weight bearing: Full weight bearing Assist: Supervision Distance: 520 feet Deviation: Chayo increasing. No LOB. No increased posterior sway. Step length and width increasing. THERA EX: Patient tolerated seated resisted knee flexion exercises using green Thera-Band x20 reps with 5-second hold each time, he then proceeded to do standing marches in place x20 with same green Thera-Band around distal thighs, lastly he did resisted sidestepping exercises with green Thera-Band 20 times to the right and 20 times to the left using the front wheeled walker without LOB. ASSESSMENT: Patient was downgraded back to supervision last week due to a fall that happened on 10/12/2019. He continues to have a personal goal of becoming independent in the hallway using the front wheeled walker and plans on going home as soon as his antibiotic course is completed and once cleared by MD. Will continue to assess for the safety of having a goal of becoming modified independent with a front wheeled walker for all level surface ambulation this week. Will also look at the appropriateness of going back down to 3 times a week to assess for the stability of gains achieved in therapy. PLAN: 1x/day, 7 days/week x 1 week. Continue with physical Therapy intervention for strengthening, bed mobility, transfers, gait, stairs, balance training, use of assistive device. TREATMENT CODE/TIME: 99468 x 30 minutes, 26860 x 16 minutes beginning at 9:15 AM.
--- NOTE | 2019-10-20 09:43 | W.PM.PROGNOT ---
Date of Service Date of service: 10/20/19 Time of Service: 09:43 Assessment and Plan Assessment and plan (1) Ileus: Status: Acute Assessment and plan: He is improving Will advance diet Encourage ambulation We discussed a protein supplement but he declines as they caused bloating/cramping in the past Will sign off. Please call surgeon correctional agency director with any concerns. Subjective Subjective Interval history since last seen: Patient reports he woke up feeling well. Tolerating clears, no N/V. Passing flatus. Had loose stool yesterday Ambulated 4 times yesterday Exam Narrative Exam Narrative: Appears well Abdomen soft, nontender, nondistended. Objective Objective Clinical Data: Abnormal lab results 10/20/19 10/20/19 Range/Units 06:30 06:30 RBC 2.61 L (4.50-6.00) m/cumm Hgb 8.0 L (13.5-17.5) g/dL Hct 24.2 L (40.0-50.0) % BUN 19 H (7-18) mg/dL Calcium 7.8 L (8.5-10.1) mg/dL Vital Signs Temperature 98.4 F 10/20/19 08:08 Temperature Source Tympanic 10/20/19 08:08 Pulse 78 10/20/19 08:08 Pulse Rhythm Regular 10/19/19 20:30 Respiratory Rate 18 10/20/19 08:08 Respiratory Effort Non-Labored 10/20/19 02:13 Respiratory Depth Normal 10/20/19 02:13 Respiratory Pattern Normal 10/20/19 02:13 Blood Pressure 118/58 L 10/20/19 08:08 Pulse Oximetry 95 10/20/19 08:08 Oxygen Delivery Method Room Air 10/20/19 08:08 Oxygen Flow Rate 0 10/20/19 08:08 Fraction of Inspired Oxygen (FIO2) 21 10/19/19 09:07 Pain Level 0 10/20/19 08:08 Intake & Output 10/19/19 10/19/19 10/20/19 11:59 23:59 11:59 Intake Total 636 / 3447 2811 / 3447 160 / 160 Output Total 1650 / 2440 790 / 2440 600 / 600 Balance -1014 / 1007 2021 / 1007 -440 / -440 Weight 168 lb 6.931 oz 166 lb 3.657 oz Intake: IV 386 / 3097 2711 / 3097 160 / 160 Oral 250 / 350 100 / 350 Output: Urine 1100 / 1890 790 / 1890 600 / 600 Post Void Residual 550 / 550 Other: Urine Color Straw Light Analilia Light Analilia Urine Appearance Clear Clear Clear Urine Odor Normal Normal Comment patient voided 120, bladder scanned for 400, straight titi'd for 550, re scanned for residual 20 Stool Size Moderate Stool Characteristics Soft Brown Voiding Methods Urinal Urinal Urinal Laboratory Results WBC 8.10 k/cumm (4.4-10.8) 10/20/19 06:30 RBC 2.61 m/cumm (4.50-6.00) L 10/20/19 06:30 Hgb 8.0 g/dL (13.5-17.5) L 10/20/19 06:30 Hct 24.2 % (40.0-50.0) L 10/20/19 06:30 MCV 92.7 fL (80-95) 10/20/19 06:30 MCH 30.7 pg (27.0-33.0) 10/20/19 06:30 MCHC 33.1 g/dL (32.0-36.0) 10/20/19 06:30 RDW 12.5 % (11.8-14.1) 10/20/19 06:30 Plt Count 320 x1000/uL (130-400) 10/20/19 06:30 MPV 8.3 fL (8.0-11.0) 10/20/19 06:30 Immature Gran % 1.0 % 10/18/19 06:45 Neutrophils % 74.8 10/18/19 06:45 Lymphocytes % 11.2 10/18/19 06:45 Monocytes % 11.3 10/18/19 06:45 Eosinophils % 1.4 10/18/19 06:45 Basophils % 0.3 10/18/19 06:45 Absolute Neutrophils 5.91 k/cumm (1.2-6.7) 10/18/19 06:45 Absolute Lymphocytes 0.88 k/cumm (1.2-3.4) L 10/18/19 06:45 Absolute Monocytes 0.89 k/cumm (0.11-0.7) H 10/18/19 06:45 Absolute Eosinophils 0.11 k/cumm (0.0-0.7) 10/18/19 06:45 Absolute Basophils 0.02 k/cumm (0.0-0.2) 10/18/19 06:45 PT 10.4 sec (9.3-11.0) 10/19/19 06:25 INR 1.0 (0.9-1.1) 10/19/19 06:25 ABG Sample Site Cancelled 10/19/19 08:14 ABG pH Cancelled 10/19/19 08:14 ABG pCO2 Cancelled 10/19/19 08:14 ABG pO2 Cancelled 10/19/19 08:14 ABG HCO3 Cancelled 10/19/19 08:14 ABG Total CO2 Cancelled 10/19/19 08:14 ABG O2 Saturation Cancelled 10/19/19 08:14 ABG Base Excess Cancelled 10/19/19 08:14 Oxygen Liter Flow Cancelled 10/19/19 08:14 FiO2 Cancelled 10/19/19 08:14 Sodium 136 mmol/L (136-145) 10/20/19 06:30 Potassium 4.0 mmol/L (3.5-5.1) 10/20/19 06:30 Chloride 105 mmol/L (98-107) 10/20/19 06:30 Carbon Dioxide 26.3 mmol/L (21.0-32.0) 10/20/19 06:30 Anion Gap 4.7 mmol/L (3-11) 10/20/19 06:30 BUN 19 mg/dL (7-18) H 10/20/19 06:30 Creatinine 0.97 mg/dL (0.70-1.30) 10/20/19 06:30 Estimated GFR/1.73 m2 >= 60.00 (mL/min/1.73m2) 10/20/19 06:30 Glucose 102 mg/dL (74-106) 10/20/19 06:30 Lactate 0.6 mmol/L (0.6-1.4) 10/16/19 06:55 Calcium 7.8 mg/dL (8.5-10.1) L 10/20/19 06:30 Phosphorus 3.3 mg/dL (2.6-4.7) 10/20/19 06:30 Magnesium 1.9 mg/dL (1.8-2.4) 10/20/19 06:30 Total Bilirubin 0.3 mg/dL (0.2-1.0) 10/19/19 06:25 AST 22 U/L (15-37) 10/19/19 06:25 ALT 6 U/L (16-63) L 10/19/19 06:25 Alkaline Phosphatase 79 U/L (46-116) 10/19/19 06:25 Total Protein 5.1 g/dL (6.4-8.2) L 10/19/19 06:25 Albumin 1.7 g/dL (3.4-5.0) L 10/19/19 06:25 Procalcitonin 0.6 ng/mL 10/15/19 19:37
[2019-10-20] MEDS: Levothyroxine 25 MCG TAB PO (10:29)
[2019-10-20 11:26] VITALS: BP 102/60; PULSE 88; RESP 17; TEMP 36.9; O2SAT 98
--- NOTE | 2019-10-20 13:31 | W.PM.PROGNOT ---
Date of Service Date of service: 10/20/19 Time of Service: 13:31 Assessment and Plan Assessment and plan (1) Clostridium difficile enterocolitis: Start date: 10/20/19 Start time: 13:34 Status: Acute Assessment and plan: Causing ileus. Treat with IV flagyl, NGT discontinued. Started on clears, tolerating diet no n/v/, passing flatus with soft bm Surgery following. (2) Ileus: Start date: 10/20/19 Start time: 13:36 Status: Acute Assessment and plan: TPN dcd able to tolerate clears treat C.diff. Appreciate surgical help. Patient improving BM this am. IVF dcd (3) MSSA bacteremia: Start date: 10/20/19 Start time: 13:41 Status: Acute Assessment and plan: with lumbar discitis, ?osteomyelitis. Continue Ancef 2 gm IV q8hr through 11/08. Transthoracic echo negative for endocarditis. (4) Lumbar discitis: Start date: 10/20/19 Start time: 13:41 Status: Acute Assessment and plan: as above. Continue pain management with tylenol and lidoderm patch. (5) BPH (benign prostatic hyperplasia): Start date: 10/20/19 Start time: 13:41 Status: Chronic Assessment and plan: Resume Proscar and Tamsulosin Remove rodríguez and monitor urinary retention straight cath for urine greater than 500 cc Qualifiers: Lower urinary tract symptom presence: symptoms present Lower urinary tract symptom detail: urinary retention Qualified Code(s): N40.1 - Benign prostatic hyperplasia with lower urinary tract symptoms; R33.8 - Other retention of urine (6) Essential hypertension: Start date: 10/20/19 Start time: 13:41 Status: Acute Assessment and plan: BP meds restarted, tolerating PO, continue to monitor. (7) Discharge planning issues: Start date: 10/20/19 Start time: 13:42 Status: Acute Assessment and plan: DNR/DNI. To remain in the hospital through 11/08 for completion of abx. (8) DVT prophylaxis: Start date: 10/20/19 Start time: 13:42 Status: Acute Assessment and plan: Lovenox SC Above case discussed with Dr. Lowery who is in agreement Subjective Subjective Patient reports: no new complaints Interval history since last seen: Dawit is doing well today. He is tolerating clear liquids without nausea and vomiting. He is ambulatory around the floor several times through out the day. Passing flatus and bm. He denies CP, SOB, N/V/D. Exam Narrative Exam Narrative: General: Pleasant elderly male, A&Ox2-3, appears comfortable in bed with NGT in, HEENT: EOMI, MMM, Heart: RRR, no m/r/g Lungs: LSC diminished bilaterally Abdomen: soft, hypoactive bowel sounds Extremities: no e/c/c BLE's Objective Objective Clinical Data: Abnormal lab results 10/20/19 10/20/19 Range/Units 06:30 06:30 RBC 2.61 L (4.50-6.00) m/cumm Hgb 8.0 L (13.5-17.5) g/dL Hct 24.2 L (40.0-50.0) % BUN 19 H (7-18) mg/dL Calcium 7.8 L (8.5-10.1) mg/dL Vital Signs Temperature 36.9 C 10/20/19 11:26 Temperature Source Tympanic 10/20/19 11:26 Pulse 88 10/20/19 11:26 Pulse Rhythm Regular 10/20/19 10:15 Respiratory Rate 17 10/20/19 11:26 Respiratory Effort Non-Labored 10/20/19 10:15 Respiratory Depth Normal 10/20/19 10:15 Respiratory Pattern Normal 10/20/19 10:15 Blood Pressure 102/60 10/20/19 11:26 Pulse Oximetry 98 10/20/19 11:26 Oxygen Delivery Method Room Air 10/20/19 11:26 Oxygen Flow Rate 0 10/20/19 11:26 Fraction of Inspired Oxygen (FIO2) 21 10/19/19 09:07 Pain Level 0 10/20/19 11:26 Intake & Output 10/19/19 10/20/19 10/20/19 23:59 11:59 23:59 Intake Total 2811 / 3447 160 / 400 240 / 400 Output Total 790 / 2440 800 / 800 Balance 2020 -640 / -400 240 / -400 Weight 75.4 kg Intake: IV 2711 / 3097 160 / 160 Oral 100 / 350 240 / 240 Output: Urine 790 / 1890 800 / 800 Other: Urine Color Light Analilia Light Analilia Urine Appearance Clear Clear Urine Odor Normal None Voiding Methods Urinal Urinal Laboratory Results WBC 8.10 k/cumm (4.4-10.8) 10/20/19 06:30 RBC 2.61 m/cumm (4.50-6.00) L 10/20/19 06:30 Hgb 8.0 g/dL (13.5-17.5) L 10/20/19 06:30 Hct 24.2 % (40.0-50.0) L 10/20/19 06:30 MCV 92.7 fL (80-95) 10/20/19 06:30 MCH 30.7 pg (27.0-33.0) 10/20/19 06:30 MCHC 33.1 g/dL (32.0-36.0) 10/20/19 06:30 RDW 12.5 % (11.8-14.1) 10/20/19 06:30 Plt Count 320 x1000/uL (130-400) 10/20/19 06:30 MPV 8.3 fL (8.0-11.0) 10/20/19 06:30 Immature Gran % 1.0 % 10/18/19 06:45 Neutrophils % 74.8 10/18/19 06:45 Lymphocytes % 11.2 10/18/19 06:45 Monocytes % 11.3 10/18/19 06:45 Eosinophils % 1.4 10/18/19 06:45 Basophils % 0.3 10/18/19 06:45 Absolute Neutrophils 5.91 k/cumm (1.2-6.7) 10/18/19 06:45 Absolute Lymphocytes 0.88 k/cumm (1.2-3.4) L 10/18/19 06:45 Absolute Monocytes 0.89 k/cumm (0.11-0.7) H 10/18/19 06:45 Absolute Eosinophils 0.11 k/cumm (0.0-0.7) 10/18/19 06:45 Absolute Basophils 0.02 k/cumm (0.0-0.2) 10/18/19 06:45 PT 10.4 sec (9.3-11.0) 10/19/19 06:25 INR 1.0 (0.9-1.1) 10/19/19 06:25 ABG Sample Site Cancelled 10/19/19 08:14 ABG pH Cancelled 10/19/19 08:14 ABG pCO2 Cancelled 10/19/19 08:14 ABG pO2 Cancelled 10/19/19 08:14 ABG HCO3 Cancelled 10/19/19 08:14 ABG Total CO2 Cancelled 10/19/19 08:14 ABG O2 Saturation Cancelled 10/19/19 08:14 ABG Base Excess Cancelled 10/19/19 08:14 Oxygen Liter Flow Cancelled 10/19/19 08:14 FiO2 Cancelled 10/19/19 08:14 Sodium 136 mmol/L (136-145) 10/20/19 06:30 Potassium 4.0 mmol/L (3.5-5.1) 10/20/19 06:30 Chloride 105 mmol/L (98-107) 10/20/19 06:30 Carbon Dioxide 26.3 mmol/L (21.0-32.0) 10/20/19 06:30 Anion Gap 4.7 mmol/L (3-11) 10/20/19 06:30 BUN 19 mg/dL (7-18) H 10/20/19 06:30 Creatinine 0.97 mg/dL (0.70-1.30) 10/20/19 06:30 Estimated GFR/1.73 m2 >= 60.00 (mL/min/1.73m2) 10/20/19 06:30 Glucose 102 mg/dL (74-106) 10/20/19 06:30 Lactate 0.6 mmol/L (0.6-1.4) 10/16/19 06:55 Calcium 7.8 mg/dL (8.5-10.1) L 10/20/19 06:30 Phosphorus 3.3 mg/dL (2.6-4.7) 10/20/19 06:30 Magnesium 1.9 mg/dL (1.8-2.4) 10/20/19 06:30 Total Bilirubin 0.3 mg/dL (0.2-1.0) 10/19/19 06:25 AST 22 U/L (15-37) 10/19/19 06:25 ALT 6 U/L (16-63) L 10/19/19 06:25 Alkaline Phosphatase 79 U/L (46-116) 10/19/19 06:25 Total Protein 5.1 g/dL (6.4-8.2) L 10/19/19 06:25 Albumin 1.7 g/dL (3.4-5.0) L 10/19/19 06:25 Procalcitonin 0.6 ng/mL 10/15/19 19:37
--- NOTE | 2019-10-20 14:38 | PDOC.CMPRO ---
- If Service Date Differs Date of service: 10/20/19 Time of Service: 14:38 Care Management Progress Note S/O: Dawit was sitting up in his chair when CM met with him. He reported that he woke up today and felt much better. He stated that per provider, his diet would be advanced today, which he was happy about. He will continue to work with PT, and will transition back to SWB when he is medically ready. Dawit stated that he spoke to his psychologist today, which is helpful for him. He plans to speak to her again in two weeks. CM will continue to follow. A: Willy is a 74 year old male admitted to [facility] on 09/21/19, now back [place] [facility] [place] [facility] level 1 for SBO vs Ileus. P: Anticipate Dawit will return to his IV abx treatment once he is medically cleared, and will be transitioned back to SWB 1 level of care. He will continue to work with PT, as recommended. He may need community supports once ready to discharge. CM will continue to follow.
--- NOTE | 2019-10-20 15:05 | W.NUTRFU ---
Date of service: 10/20/19 Time of Service: 15:05 Nutritional Follow up NOTE: Met with Willy today. TPN removed 10/20/19 and diet advanced to post op diet. Ileus improving but continues to c/o bloating, digestion issues, no diarrhea today. Refuses to consider protein supplements/shakes but is willing to eat 2 yogurts daily (300 kcal, 30 g protein)which will provide kcal, protein and probiotics all beneficial in view of recent C diff. Reviewed easy to digest foods s/p c. diff/ileus. Continues to be at high nutritional risk in view of prolonged poor intake over last 10 days and increased needs with recent infections. Will continue to follow and provide recommendations for optimal intake and weight maintenance. Time Spent in Nutritional Counseling and Treatment: 20 min spent face to face
[2019-10-20 15:15] VITALS: BP 105/62; PULSE 83; RESP 83; TEMP 35.9; O2SAT 99
[2019-10-20 19:00] VITALS: BP 119/66; PULSE 77; RESP 19; TEMP 36.6; O2SAT 98
[2019-10-20 23:08] VITALS: BP 143/63; PULSE 79; RESP 18; TEMP 36.8; O2SAT 98
[2019-10-21] MEDS: metroNIDAZOLE 500 MG/100 ML BAG 100 MG IVPB ×4 (03:34→21:49)
[2019-10-21 03:52] VITALS: BP 117/61; PULSE 75; RESP 19; TEMP 36.8; O2SAT 97
[2019-10-21] MEDS: ceFAZolin 2 GM/50 ML BAG IVPB ×3 (04:50→20:13)
[2019-10-21] MEDS: Levothyroxine 25 MCG TAB PO (05:12)
[2019-10-21 07:19] LABS: HCT 22.8 % (40.0-50.0); HGB 7.6 g/dL (13.5-17.5); Mean Corp. HGB Concentration 33.3 g/dL (32.0-36.0); Mean Corpuscular Hemoglobin 31.1 pg (27.0-33.0); Mean Corpuscular Volume 93.4 fL (80-95); Mean Platelet Volume 8.3 fL (8.0-11.0); Platelet Count 303 x1000/uL (130-400); RBC 2.44 m/cumm (4.50-6.00); RBC Distribution Width 12.7 % (11.8-14.1); White Blood Cell Count 7.79 k/cumm (4.4-10.8)
[2019-10-21 07:30] LABS: Anion Gap 4.5 mmol/L (3-11); BUN 23 mg/dL (7-18); CO2 25.5 mmol/L (21.0-32.0); CREATININE 1.13 mg/dL (0.70-1.30); Calcium 7.7 mg/dL (8.5-10.1); Chloride 106 mmol/L (98-107); Glucose 102 mg/dL (74-106); Magnesium 1.9 mg/dL (1.8-2.4); Potassium 4.1 mmol/L (3.5-5.1); Sodium 136 mmol/L (136-145)
[2019-10-21 07:34] LABS: C-Reactive Protein 1.98 mg/dL (0.0-0.3); PHOSPHORUS 3.6 mg/dL (2.6-4.7)
[2019-10-21] MEDS: Lidocaine 5% Patch 1 PATCH TP (08:38)
[2019-10-21] MEDS: Enoxaparin 40 MG/0.4 ML SYR SC (08:39)
[2019-10-21] MEDS: Tamsulosin 0.4 MG CAPCR PO ×2 (08:39→20:12)
[2019-10-21] MEDS: Finasteride 5 MG TAB PO (08:39)
[2019-10-21 08:40] VITALS: BP 133/66; PULSE 88; RESP 19; TEMP 36.5; O2SAT 99
[2019-10-21] MEDS: Pantoprazole 40 MG VIAL IVP (09:56)
--- NOTE | 2019-10-21 11:19 | W.PM.PROGNOT ---
Date of Service Date of service: 10/21/19 Time of Service: 11:19 Assessment and Plan Assessment and plan (1) Anemia: Status: Chronic Assessment and plan: multifactoral with CKD, iron deficiency and likely some GI losses d/t colitis. hemoglobin slowly trending downwards, will continue to monitor weekly. he is asymptomatic. patient is ambulatory so will discontinue lovenox. add iron supplementation. (2) Clostridium difficile enterocolitis: Status: Acute Assessment and plan: stable at this time, continue probiotic, flagyl IV and vancomycin while on antibioitics. monitor for symptoms. (3) Ileus: Status: Resolved Assessment and plan: resolved. tolerating an advanced diet. continue to monitor. (4) MSSA bacteremia: Status: Acute Assessment and plan: with lumbar discitis, ?osteomyelitis. Continue Ancef 2 gm IV q8hr through 11/08. Transthoracic echo negative for endocarditis. (5) Lumbar discitis: Status: Acute Assessment and plan: as above, continue pain management. surveillance labs on Mondays. (6) BPH (benign prostatic hyperplasia): Status: Chronic Assessment and plan: voiding well on proscar and tamsulosin. monitor for retention Qualifiers: Lower urinary tract symptom detail: urinary retention Lower urinary tract symptom presence: symptoms present Qualified Code(s): N40.1 - Benign prostatic hyperplasia with lower urinary tract symptoms; R33.8 - Other retention of urine (7) Essential hypertension: Status: Acute Assessment and plan: blood pressures have been controlled, continue to monitor. continue home medications (8) DVT prophylaxis: Status: Acute Assessment and plan: enoxaparin discontinued, hemoglobin dropping and patient is ambulatory ready for discharge to SNF (9) Discharge planning issues: Status: Acute Assessment and plan: plan for discharge back to [facility] tomorrow if he remains medically stable. will need to stay until 11/08 to complete course of antibiotics. Subjective Subjective Patient reports: feels better, tolerating a regular diet, voiding w/o difficulty, flatus, bowel movement and afebrile; denies shortness of breath Exam Const General: cooperative, healthy appearing, comfortable, no acute distress and well developed Nutritional Appearance: average body habitus Orientation: alert, awake and oriented x3 HENMT Head: normocephalic, abrasion left frontal and scalp lesion (scab, no erythema) Mouth: oral mucosae normal Resp Effort & Inspection: normal respiratory effort Auscultation: clear to auscultation bilaterally Cardio Rate: regular rate Rhythm: regular rhythm GI Inspection: normal to inspection Palpation: soft Auscultation: normal bowel sounds Neuro General: patient alert, patient awake and patient oriented x3 Cranial Nerves: CN's II-XI intact bilaterally Speech: speech normal Motor: strength 5/5 throughout Extrem General: no pedal edema Psych Appearance: grossly normal Mental Status: mental status grossly normal Speech and Movement: speech and movement normal Mood: congruent mood Affect: normal affect Attitude: cooperative Thought Process: normal Thought Content: normal Insight: insight good Judgment: judgment good Objective Objective Clinical Data: Abnormal lab results 10/21/19 10/21/19 10/21/19 Range/Units 06:50 06:50 06:50 RBC 2.44 L (4.50-6.00) m/cumm Hgb 7.6 L (13.5-17.5) g/dL Hct 22.8 L (40.0-50.0) % BUN 23 H (7-18) mg/dL Calcium 7.7 L (8.5-10.1) mg/dL C-Reactive Protein 1.98 H (0.0-0.3) mg/dL Vital Signs Temperature 36.5 C 10/21/19 08:40 Temperature Source Tympanic 10/21/19 08:40 Pulse 88 10/21/19 08:40 Pulse Rhythm Regular 10/21/19 08:09 Respiratory Rate 19 10/21/19 08:40 Respiratory Effort Non-Labored 10/21/19 08:09 Respiratory Depth Normal 10/21/19 08:09 Respiratory Pattern Normal 10/21/19 08:09 Blood Pressure 133/66 10/21/19 08:40 Pulse Oximetry 99 10/21/19 08:40 Oxygen Delivery Method Room Air 10/21/19 08:40 Oxygen Flow Rate 0 10/21/19 08:40 Fraction of Inspired Oxygen (FIO2) 21 10/19/19 09:07 Pain Level 0 10/21/19 08:40 Intake & Output 10/20/19 10/20/19 10/21/19 11:59 23:59 11:59 Intake Total 260 / 1040 780 / 1040 460 / 460 Output Total 800 / 1750 950 / 1750 700 / 700 Balance -540 / -710 -170 / -710 -240 / -240 Weight 75.4 kg 75.9 kg Intake: IV 260 / 560 300 / 560 100 / 100 Oral 480 / 480 360 / 360 Output: Urine 800 / 1750 950 / 1750 700 / 700 Other: Urine Color Light Analilia Yellow Yellow Urine Appearance Clear Clear Clear Urine Odor None Normal Normal Comment rn notified Stool Size Small Small Stool Characteristics Liquid Soft Formed Voiding Methods Urinal Urinal Toilet Laboratory Results WBC 7.79 k/cumm (4.4-10.8) 10/21/19 06:50 RBC 2.44 m/cumm (4.50-6.00) L 10/21/19 06:50 Hgb 7.6 g/dL (13.5-17.5) L 10/21/19 06:50 Hct 22.8 % (40.0-50.0) L 10/21/19 06:50 MCV 93.4 fL (80-95) 10/21/19 06:50 MCH 31.1 pg (27.0-33.0) 10/21/19 06:50 MCHC 33.3 g/dL (32.0-36.0) 10/21/19 06:50 RDW 12.7 % (11.8-14.1) 10/21/19 06:50 Plt Count 303 x1000/uL (130-400) 10/21/19 06:50 MPV 8.3 fL (8.0-11.0) 10/21/19 06:50 Immature Gran % 1.0 % 10/18/19 06:45 Neutrophils % 74.8 10/18/19 06:45 Lymphocytes % 11.2 10/18/19 06:45 Monocytes % 11.3 10/18/19 06:45 Eosinophils % 1.4 10/18/19 06:45 Basophils % 0.3 10/18/19 06:45 Absolute Neutrophils 5.91 k/cumm (1.2-6.7) 10/18/19 06:45 Absolute Lymphocytes 0.88 k/cumm (1.2-3.4) L 10/18/19 06:45 Absolute Monocytes 0.89 k/cumm (0.11-0.7) H 10/18/19 06:45 Absolute Eosinophils 0.11 k/cumm (0.0-0.7) 10/18/19 06:45 Absolute Basophils 0.02 k/cumm (0.0-0.2) 10/18/19 06:45 PT 10.4 sec (9.3-11.0) 10/19/19 06:25 INR 1.0 (0.9-1.1) 10/19/19 06:25 ABG Sample Site Cancelled 10/19/19 08:14 ABG pH Cancelled 10/19/19 08:14 ABG pCO2 Cancelled 10/19/19 08:14 ABG pO2 Cancelled 10/19/19 08:14 ABG HCO3 Cancelled 10/19/19 08:14 ABG Total CO2 Cancelled 10/19/19 08:14 ABG O2 Saturation Cancelled 10/19/19 08:14 ABG Base Excess Cancelled 10/19/19 08:14 Oxygen Liter Flow Cancelled 10/19/19 08:14 FiO2 Cancelled 10/19/19 08:14 Sodium 136 mmol/L (136-145) 10/21/19 06:50 Potassium 4.1 mmol/L (3.5-5.1) 10/21/19 06:50 Chloride 106 mmol/L (98-107) 10/21/19 06:50 Carbon Dioxide 25.5 mmol/L (21.0-32.0) 10/21/19 06:50 Anion Gap 4.5 mmol/L (3-11) 10/21/19 06:50 BUN 23 mg/dL (7-18) H 10/21/19 06:50 Creatinine 1.13 mg/dL (0.70-1.30) 10/21/19 06:50 Estimated GFR/1.73 m2 >= 60.00 (mL/min/1.73m2) 10/21/19 06:50 Glucose 102 mg/dL (74-106) 10/21/19 06:50 Lactate 0.6 mmol/L (0.6-1.4) 10/16/19 06:55 Calcium 7.7 mg/dL (8.5-10.1) L 10/21/19 06:50 Phosphorus 3.6 mg/dL (2.6-4.7) 10/21/19 06:50 Magnesium 1.9 mg/dL (1.8-2.4) 10/21/19 06:50 Total Bilirubin 0.3 mg/dL (0.2-1.0) 10/19/19 06:25 AST 22 U/L (15-37) 10/19/19 06:25 ALT 6 U/L (16-63) L 10/19/19 06:25 Alkaline Phosphatase 79 U/L (46-116) 10/19/19 06:25 C-Reactive Protein 1.98 mg/dL (0.0-0.3) H 10/21/19 06:50 Total Protein 5.1 g/dL (6.4-8.2) L 10/19/19 06:25 Albumin 1.7 g/dL (3.4-5.0) L 10/19/19 06:25 Procalcitonin 0.6 ng/mL 10/15/19 19:37
[2019-10-21 11:20] VITALS: BP 113/64; PULSE 89; RESP 19; TEMP 36.5; O2SAT 98
--- NOTE | 2019-10-21 11:56 | PTTR_ITS ---
Date of service: 10/21/19 Time of Service: 10:40 PT Notes Visit Reasons: Ileus vs sm bowel obstruction,C.diff colitis,MSSA Inpatient Physical Therapy Treatment Note [facility] Date: 10/21/2019 PRECAUTIONS: Contact Prec, Fall SUBJECTIVE: Willy is pleasant and has been looking forward to working with PT and taking a walk. OBJECTIVE: PAIN: No c/o pain BED MOBILITY/TRANSFERS Sit-stand: S Stand-sit: S GAIT Assistive Device: FWW Weight bearing: FWB Assist: S Distance: 1300' Notes: No LOB THEREX: Patient completed resisted knee flexion using a blue Theraband, as well as side stepping to left and right with blue Theraband placed at distal thigh. Patient independently completed hip abduction, internal rotation, and flexion ex ercises using green Theraband. ASSESSMENT: Patient tolerated session well, without complaint. He tolerated a progression in gait distance with FWW support and supervision, without LOB. PLAN: Continue with PT's POC TREATMENT CODE/TIME: 50 minutes; [id number] ?2, [id number]
[2019-10-21 16:00] VITALS: BP 111/63; PULSE 85; RESP 18; TEMP 36.3; O2SAT 97
[2019-10-21] MEDS: Normal Saline Flush 10 ML SYR IVP ×3 (16:18→21:49)
--- NOTE | 2019-10-21 17:53 | PDOC.CMPRO ---
- If Service Date Differs Date of service: 10/21/19 Time of Service: 17:53 Care Management Progress Note S/O: Dawit was sitting up in his bed when CM met with him. He stated that he was feeling better today. CM explained the transition from acute care to swingbed level of care, which may happen tomorrow. CM answered all questions and concerns. CM will continue to follow. A: Willy is a 74 year old male admitted to [facility] on 09/21/19, now back in med surge from SWB level 1 for SBO vs Ileus. P: Anticipate Dawit will return to his IV abx treatment once he is medically cleared, and will be transitioned back to SWB 1 level of care. He will continue to work with PT, as recommended. He may need community supports once ready to discharge. CM will continue to follow.
[2019-10-21 20:00] VITALS: BP 131/66; PULSE 80; RESP 16; TEMP 36.6; O2SAT 96
[2019-10-21] MEDS: Ferrous Sulfate 325 MG TAB PO (20:12)
[2019-10-22 00:17] VITALS: BP 135/67; PULSE 77; RESP 18; TEMP 37; O2SAT 98
[2019-10-22] MEDS: ceFAZolin 2 GM/50 ML BAG IVPB ×2 (03:50→11:56)
[2019-10-22] MEDS: Normal Saline Flush 10 ML SYR IVP ×4 (03:50→11:56)
[2019-10-22] MEDS: metroNIDAZOLE 500 MG/100 ML BAG 100 MG IVPB ×2 (03:51→10:12)
[2019-10-22 04:47] VITALS: BP 148/70; PULSE 82; RESP 18; TEMP 37.2; O2SAT 95
[2019-10-22] MEDS: Levothyroxine 25 MCG TAB PO (05:52)
[2019-10-22] MEDS: Normal Saline 1,000 ML 30 ML IV (06:01)
[2019-10-22 07:13] LABS: HCT 22.3 % (40.0-50.0); HGB 7.3 g/dL (13.5-17.5); Mean Corp. HGB Concentration 32.7 g/dL (32.0-36.0); Mean Corpuscular Hemoglobin 30.5 pg (27.0-33.0); Mean Corpuscular Volume 93.3 fL (80-95); Mean Platelet Volume 8.6 fL (8.0-11.0); Platelet Count 336 x1000/uL (130-400); RBC 2.39 m/cumm (4.50-6.00); RBC Distribution Width 12.8 % (11.8-14.1); White Blood Cell Count 8.05 k/cumm (4.4-10.8)
[2019-10-22 07:21] VITALS: BP 138/69; PULSE 79; RESP 16; TEMP 37.1; O2SAT 94
[2019-10-22 07:22] LABS: Anion Gap 4.3 mmol/L (3-11); BUN 17 mg/dL (7-18); CO2 25.7 mmol/L (21.0-32.0); CREATININE 1.11 mg/dL (0.70-1.30); Calcium 7.9 mg/dL (8.5-10.1); Chloride 107 mmol/L (98-107); Glucose 123 mg/dL (74-106); Magnesium 1.7 mg/dL (1.8-2.4); Potassium 3.7 mmol/L (3.5-5.1); Sodium 137 mmol/L (136-145)
[2019-10-22] MEDS: Tamsulosin 0.4 MG CAPCR PO (08:57)
[2019-10-22] MEDS: Finasteride 5 MG TAB PO (08:57)
[2019-10-22] MEDS: Ferrous Sulfate 325 MG TAB PO (08:57)
[2019-10-22] MEDS: Lidocaine 5% Patch 1 PATCH TP (08:58)
[2019-10-22] MEDS: Pantoprazole 40 MG VIAL IVP (08:59)
--- NOTE | 2019-10-22 10:14 | DSE_ITS ---
Date of service: 10/22/19 Time of Service: 10:15 DS: Diagnosis Discharge Diagnosis (1) Anemia: Status: Chronic (2) Clostridium difficile enterocolitis: Status: Acute (3) Ileus: Status: Resolved (4) MSSA bacteremia: Status: Acute (5) Lumbar discitis: Status: Acute (6) BPH (benign prostatic hyperplasia): Status: Chronic (7) Essential hypertension: Status: Acute Discharge Plan Disposition Patient Disposition: [facility] SWING BED LEVEL 1 Condition: Improving Discharge Details Reason For Visit: Ileus vs sm bowel obstruction,C.diff colitis,MSSA Admit Date/Time: 10/15/19 09:03 Admit Provider: Ralph Brito Attending Provider: Ralph rBito Primary Care Provider: Kai Peter Hospital Course Hospital Course: This is a 74-year-old male who was initially admitted to the hospital for sepsis and was found to have MSSA bacteremia and had acute kidney injury as well as rhabdomyolysis and encephalopathy. Patient was treated with Ancef 2 g IV every 8 hours and eventually his blood cultures cleared as of September 28, 2019. He was entered into swing bed status on September 30, 2019 for completion of his parenteral antibiotics for his MSSA bacteremia and lumbar discitis. His current hospitalization under swing bed status was complicated by the development of C. difficile colitis for which he was treated with oral vancomycin. His stay was also further complicated by mechanical fall while he was bending over reaching for something he lost his balance and struck his head. This occurred on October 12, 2019 he was left with an abrasion over his forehead he was placed in a c-collar and a CT scan of his head and neck was performed CT of the cervical spine showed no fracture or subluxation. CT scan of the head showed no acute intracranial process. Patient continued his treatment under swing bed status including physical therapy as well as his Ancef and his oral vancomycin. On October 15, 2019 he developed protracted vomiting, as well as diarrhea. He denied abdominal pain but because of the protracted vomiting he was made n.p.o. and x-ray imaging of his abdomen which demonstrated a developing ileus versus partial small bowel obstruction with moderate to severe dilatation of the visualized loops with air noted in the rectal vault but no free air. He was treated with NGT, bowel rest and IV fluids. he was started on IV flagyl for his cdiff. he was subsequently admitted to acute care for further evaluation and treatment. his symptoms slowly improved, he started passing flatus and stooling. His NGT was discontinued and diet advanced which he tolerated well. He has been hemodynamically stable, oxygenating well on room air with no c/o. He is now Home Meds and New Rx's Prescriptions: No Action (DME) vacuum erection device system kit See Dose Instructions .ROUTE .MEDSUPPLY Qty: 1 RF: 0 simvastatin 10 MG tablet 10 mg PO DAILY RF: 0 levothyroxine [Synthroid] 25 MCG tablet 25 mcg PO DAILY RF: 0 tamsulosin 0.4 MG capsule 0.4 mg PO BID RF: 0 finasteride [Proscar] 5 MG tablet 5 mg PO DAILY RF: 0 Discharge Instructions Instructions: Sepsis (GEN), Bowel Obstruction (DC) Activity:: Activity as Tolerated Equipment/Supplies:: No Equipment Needed Diet:: As Tolerated Discharge Orders Discharge Orders: Discharge Order (Routine); Ordered 10/22/19 Ordered By: Tran Flores DS: Summary Status at Discharge Functional status at discharge: independent ambulation Overall status at discharge: patient is progressing back to baseline Mental Status: mental status grossly normal Speech and Movement: speech and movement normal Mood: congruent mood Affect: normal affect Exam Const General: cooperative, healthy appearing, comfortable, no acute distress and well developed Nutritional Appearance: average body habitus Orientation: alert, awake and oriented x3 HENMT Head: normocephalic, abrasion left frontal and scalp lesion (scab, no erythema) Mouth: oral mucosae normal Resp Effort & Inspection: normal respiratory effort Auscultation: clear to auscultation bilaterally Cardio Rate: regular rate Rhythm: regular rhythm GI Inspection: normal to inspection Palpation: soft Auscultation: normal bowel sounds Neuro General: patient alert, patient awake and patient oriented x3 Cranial Nerves: CN's II-XI intact bilaterally Speech: speech normal Motor: strength 5/5 throughout Extrem General: no pedal edema Psych Appearance: grossly normal Mental Status: mental status grossly normal Speech and Movement: speech and movement normal Mood: congruent mood Affect: normal affect Attitude: cooperative Thought Process: normal Thought Content: normal Insight: insight good Judgment: judgment good DS: Data Vitals/I&O Vitals and I&O: Vital Signs Temperature 37.1 C 10/22/19 07:21 Temperature Source Tympanic 10/22/19 07:21 Pulse 79 10/22/19 07:21 Pulse Rhythm Regular 10/22/19 03:51 Respiratory Rate 16 10/22/19 07:21 Respiratory Effort Non-Labored 10/22/19 03:51 Respiratory Depth Normal 10/22/19 03:51 Respiratory Pattern Normal 10/22/19 03:51 Blood Pressure 138/69 10/22/19 07:21 Pulse Oximetry 94 L 10/22/19 07:21 Oxygen Delivery Method Room Air 10/22/19 07:21 Oxygen Flow Rate 0 10/22/19 07:21 Fraction of Inspired Oxygen (FIO2) 21 10/22/19 05:30 Pain Level 0 10/22/19 04:47 Intake & Output 10/21/19 10/21/19 10/22/19 11:59 23:59 11:59 Intake Total 1610 / 2250 640 / 2250 210 / 210 Output Total 700 / 1650 950 / 1650 1050 / 1050 Balance 910 / 600 -310 / 600 -840 / -840 Weight 75.9 kg 76.1 kg Intake: IV 1250 / 1650 400 / 1650 210 / 210 Oral 360 / 600 240 / 600 Output: Urine 700 / 1650 950 / 1650 1050 / 1050 Other: Urine Color Yellow Yellow Yellow Urine Appearance Clear Clear Clear Urine Odor Normal None None Comment pt voided both in the urinal and tiolet Stool Size Small Moderate Stool Characteristics Soft Liquid Formed Voiding Methods Toilet Urinal Urinal Data Completed and Pending Labs on day of discharge: Labs from last 24 hours 10/22/19 10/22/19 10/22/19 06:40 06:40 06:40 WBC 8.05 RBC 2.39 L Hgb 7.3 L Hct 22.3 L MCV 93.3 MCH 30.5 MCHC 32.7 RDW 12.8 Plt Count 336 MPV 8.6 Sodium 137 Potassium 3.7 Chloride 107 Carbon Dioxide 25.7 Anion Gap 4.3 BUN 17 D Creatinine 1.11 Estimated GFR/1.73 m2 >= 60.00 Glucose 123 H Calcium 7.9 L Phosphorus Pending Magnesium 1.7 L PFSH Medical History (Updated 10/21/19 @ 14:43 by Tran Flores NP) Anemia of chronic disease (Acute) BPH (benign prostatic hyperplasia) (Chronic) Conductive hearing loss (Acute) Dehydration (Acute) Epidural abscess (Acute ~10/09/13) Erectile dysfunction (Inactive) History of Clostridioides difficile colitis (Resolved ~10/2013) History of small bowel obstruction (Acute 07/12/15) MSSA (methicillin susceptible Staphylococcus aureus) septicemia (Acute 10/09/13) in setting of ruputured appendicitis and found to have disciitis epidural abscess, [facility], [place], [place]; Dr. Casey Mixon, infectious disease Osteomyelitis of vertebra of thoracolumbar region (Acute ~10/09/13) treated w/ 6 weeks of Ancef; seen by Dr. Casey Mixon, infectious disease, [facility], [place], [place]; completed treatment 11/20/2013; complicated by C. difficile colitis Panic anxiety syndrome (Acute) SBO (small bowel obstruction) (Acute) Sensorineural hearing loss (Acute) Surgical History H/O sinus surgery (Acute) History of bilateral cataract extraction (Acute) History of cholecystectomy (Chronic ~1998) History of tonsillectomy and adenoidectomy (Acute) S/P laparoscopic appendectomy (Acute 10/09/13) S/P left inguinal hernia repair (Acute) Social History Smoking/Tobacco Use Status: Former Tobacco Use Alcohol Intake: never Drug use: Never Substance use type: does not use Do you feel safe at home: Yes Do you feel safe in your relationship?: Yes
--- NOTE | 2019-10-22 10:50 | PT.INDS ---
Date of service: 10/22/19 PT Notes Visit Reasons: Ileus vs sm bowel obstruction,C.diff colitis,MSSA Inpatient Physical Therapy Discharge Summary Dates: 10/22/2019 Dates of Service: 10/16/2019 through 10/21/2019 Referring Doctor: Ralph Brito MD PT Orders: PT CONSULT: Extended-stay weakness. Limited ability. Precautions: Fall. Standard. Activity as tolerated. Patient Profile/Admitting Diagnosis: Patient is discharged under acute care level and will be reevaluated under swing bed level 1 as of 10/14/2019. He is re-evaluated for continued skilled PT as of today. Patient is a 74-year-old male who presented to the ED on 09/21/2019 via EMS with chief complaints of generalized weakness that started 2 days prior to admission that has resulted to a fall on his way to his bathroom in his apartment and a left abdominal discomfort. Patient is diagnosed with pneumonia with MSSA bacteremia, acute rhabdomyolysis, increased opponent, back pain with question of vertebral osteomyelitis or discitis, neck pain, transaminitis, and ambulatory dysfunction. Patient tested negative for COVID-19 on as of 09/14/2019 at 20 3:16 PM. Orders were sent in for physical therapy to address impairments and strength, balance, and activity tolerance. PMHX: Medical History (Updated 09/22/19 @ 10:34 by Shi Alonzo MD) Erectile dysfunction (Inactive) Surgical History (Updated 09/22/19 @ 10:32 by Shi Alonzo MD) S/P left inguinal hernia repair (Acute) Social History/Home Situation: Patient lives alone on the second floor of an apartment building with no steps to enter. He uses an elevator to reach the entrance of his apartment. He is independent with all activities of daily living not requiring any assistive ambulatory device nor adaptive equipment. He still drives. His passed 3 years ago and he has been seeing a counselor to manage his grief. Equipment Owned/DME: Patient states that his used a walker and a cane which can both be available to him if needed. Subjective: Dawit was a little upset about finding out that he will have physical therapy today because he was just recently told that he is to stay in bed to manage his recently diagnosed small bowel obstruction. He was agreeable to a PT consult after explanation that continued mobility is a very good way of stimulating his bowel function. Objective: General Observation: IV access in right UE. R-sided torticollis (acquired?). Genu varum. Mental Status: Alert and oriented as to person, place, and time Pain: 1-2/10 in the neck area especially with end range of neck motions ROM: Neck: Rotation to L about 40 degrees. Rotation to R about 45 degrees. Lateral flexion to L abut 25 degrees. Lateral flexion to R about 30 degrees. Right Upper Extremity: Shoulder Flexion WFL. Shoulder abduction WFL. Elbow flexion WFL. Wrist flexion WFL. Opening and closing of hand WFL. Left Upper Extremity: Shoulder Flexion WFL. Shoulder abduction WFL. Elbow flexion WFL. Wrist flexion WFL. Opening and closing of hand WFL. Right Lower Extremity: Hip flexion WFL. Hip abduction WFL. Knee flexion WFL. Ankle dorsiflexion WFL. Ankle plantarflexion WFL. Left Lower Extremity: Hip flexion WFL. Hip abduction WFL. Knee flexion WFL. Ankle dorsiflexion WFL. Ankle plantarflexion WFL. Strength: Right Upper Extremity: Shoulder flexors 4/5. Shoulder abductors 4/5. Elbow flexors 4/5. Elbow extensors 4/5. [employer] strong. Left Upper Extremity: Shoulder flexors 4/5. Shoulder abductors 4/5. Elbow flexors 4/5. Elbow extensors 4/5. [employer] strong. Right Lower Extremity: Hip flexors 4/5. Hip abductors 4/5. Knee flexors 4/5. Knee extensors 4/5. Ankle dorsiflexors 4/5. Ankle plantarflexors 4-/5. Left Lower Extremity:Hip flexors 4/5. Hip abductors 4/5. Knee flexors 4/5. Knee extensors 4/5. Ankle dorsiflexors 4/5. Ankle plantarflexors 4-/5. Sensation: Intact as to pain and pressure on bilateral lower extremities. Bed Mobility/Transfers: Rolling I Supine to sit I with HOB to 30 degrees and using BUE for support Sit to supine I with HOB to 30 degrees and using BUE for support Sit to stand Supervision using BUE for support, minimal cueing required Stand to sit Supervision using BUE for support, minimal cueing required Bed to chair Supervision using BUE for support, minimal cueing required Chair to bed Supervision using BUE for support, minimal cueing required Gait: Patient was able to tolerate level surface ambulation of 1300 feet with supervision using front wheeled walker with full weight bearing. Chayo increasing. Reciprocal swing through gait pattern Balance: Static Sitting: Normal Dynamic Sitting: Normal Static Standing: Fair Dynamic Standing: Fair Assessment: Patient is discharged under acute care level and will be reevaluated under swing bed level 1 as of 10/14/2019. Patient demonstrates continued need for the use of an assistive ambulatory device for all mobility ADL performance now downgraded back to requiring supervision assist for safety, new diagnosis of small bowel obstruction, and due to recent fall this week. Continued skilled services will be provided under acute level of care in order to achieve established goals. Patient is a 74-year-old male who presented to the ED on 09/21/2019 via EMS with chief complaints of generalized weakness that started 2 days prior to admission that has resulted to a fall on his way to his bathroom in his apartment and a left abdominal discomfort. Patient is diagnosed with pneumonia with MSSA bacteremia, acute rhabdomyolysis, increased opponent, back pain with question of vertebral osteomyelitis or discitis, neck pain, transaminitis, and ambulatory dysfunction. Patient tested negative for COVID-19 on as of 09/14/2019 at 20 3:16 PM. Orders were sent in for physical therapy to address continued impairments with strength, balance, and activity tolerance due to Functional mobility decline. Generalized muscle weakness. Neck pain Patient continues to present with clinical signs and symptoms consistent with current/admitting diagnoses that have resulted to mobility limitations, gait instability, generalized weakness, and impairment of motor control as demonstrated by the following impairment level findings: 1. Decreased strength B UE and B LE major muscle groups 2. Impaired dynamic standing balance 3. Impaired activity tolerance Impairments are continuing to contribute to the following functional limitations: 1. Increased dependence with transfers 2. Inability to safely ambulate without assistive device and physical assistance 3. Increase completion time for mobility ADL performance 4. Increased fall risk Goals: Goals X1 week 1. Supine-Sit independent MET 2. Sit-Supine independent MET 3. Sit-Stand independent NOT MET 4. Stand-Sit independent NOT MET 5. Bed-Chair independent NOT MET 6. Chair-Bed independent NOT MET 7. Independent gait on level surface with use of least restrictive device for at least 800 feet without report of pain nor dyspnea NOT MET 8. Independent stair negotiation while holding onto bilateral rails for at least 10 steps without report of pain nor dyspnea NOT MET 9. Independent with home exercise program MET 10. Good static and dynamic standing balance/tolerance NOT MET DISCHARGE RECOMMENDATIONS: Patient will benefit from home health PT services in order to progress mobility level using least restrictive assistive ambulatory device, assess home safety, identify additional equipment needs, and establish a functional maintenance program that will increase ability of patient to remain at home. TREATMENT CODE/TIME: NC. Thank you very much for this referral. Ariane Poe PT, DPT, CLT [facility] at [place], [place]
[2019-10-22 11:07] LABS: PHOSPHORUS 3.2 mg/dL (2.6-4.7)
[2019-10-22 12:27] VITALS: BP 135/69; PULSE 80; RESP 18; O2SAT 97
--- NOTE | 2019-10-22 16:10 | CMPROGNOTE_ITS ---
- If Service Date Differs Date of service: 10/22/19 Time of Service: 16:10 Care Management Progress Note S/O: Dawit has been medically cleared to transition to SWB level one today to complete his course of IV abx. He will also benefit from continuing to work with PT while on SWB status. CM discussed his status change and answered questions and concerns from the patient. Dawit requested to speak with the provider, which CM attended to. Dawit is agreeable to the plan. CM will continue to follow. A: Dawit is a 74 year old male admitted to [facility] on 10/15/19 from SWB status for an Ileus. P: Dawit will transition to SWB level one for IV abx treatment as well as PT today from acute status. CM went over assessment and plan of care with patient. CM completed inpatient IMM as well as SWB agreement with Dawit. Once Dawit's goals are met he will discharge home with no anticipated services. PT may recommend a FWW, if necessary, although Dawit is not currently agreeable to owning one. CM will continue to follow and support discharge planning considerations.
== END 2019-10-22 13:03 | disposition swing bed (61) | DRG 389 ==
PROVIDERS: Nurse Practitioner Family; Surgery; Admitting Provider Internal Medicine; PCP Nurse Practitioner Family; Visit Provider Internal Medicine
DX: K56.7 Ileus, unspecified (principal); A04.72 Enterocolitis due to Clostridium difficile, not specified as recurrent; R78.81 Bacteremia; N17.9 Acute kidney failure, unspecified; I47.1 Supraventricular tachycardia; K56.51 Intestinal adhesions [bands], with partial obstruction; E87.5 Hyperkalemia; B95.61 Methicillin susceptible Staphylococcus aureus infection as the cause of diseases classified elsewhere; D63.8 Anemia in other chronic diseases classified elsewhere; E86.0 Dehydration; R41.0 Disorientation, unspecified; Z79.2 Long term (current) use of antibiotics; M46.46 Discitis, unspecified, lumbar region; N40.1 Benign prostatic hyperplasia with lower urinary tract symptoms; R33.8 Other retention of urine; N18.9 Chronic kidney disease, unspecified; I12.9 Hypertensive chronic kidney disease with stage 1 through stage 4 chronic kidney disease, or unspecified chronic kidney disease; E61.1 Iron deficiency; R53.1 Weakness; Z87.39 Personal history of other diseases of the musculoskeletal system and connective tissue; Z45.2 Encounter for adjustment and management of vascular access device; Z66 Do not resuscitate; G47.33 Obstructive sleep apnea (adult) (pediatric)
CPT/HCPCS: 36415; 80048; 80053; 82805; 84145; 84520; 85027; 97110; 97162; 97530; 99223; 99231; 99232; 99233; 99239; 99253; J1650; 71046; 74019; 74176; 82565; 83605; 83735; 84100; 85025; 85610; 86140; J0131; J0690; J1756; J2405; J2765; J3475; J3490; Q9967

== ENCOUNTER 2019-10-22 12:16 | Inpatient (IN) | payer MEDICARE, SELFPAY ==
--- NOTE | 2019-10-22 12:03 | HPE_ITS ---
Date of service: 10/22/19 Time of Service: 12:03 Assessment and Plan Assessment and plan (1) MSSA bacteremia: Status: Acute Assessment and plan: with lumbar discitis, ?osteomyelitis. Continue Ancef 2 gm IV q8hr through 11/08. Transthoracic echo negative for endocarditis. surveillance labs on mondays (2) Clostridium difficile enterocolitis: Status: Acute Assessment and plan: will continue oral vancomycin while on antibiotics (3) Essential hypertension: Status: Acute Assessment and plan: stable, continue to monitor and adjust medications as needed. (4) Lumbar discitis: Status: Acute Assessment and plan: stable, continue pain management (5) Discharge planning issues: Status: Acute Assessment and plan: will need to stay until 11/08 to complete course of antibiotics. anticipate discharge to home with no services once completed. History of Present Illness History of Present Illness Chief Complaint: mssa bacteremia Narrative: This is a 74-year-old male who was initially admitted to the hospital for sepsis and was found to have MSSA bacteremia and had acute kidney injury as well as rhabdomyolysis and encephalopathy. Patient was treated with Ancef 2 g IV every 8 hours and eventually his blood cultures cleared as of September 28, 2019. He was entered into swing bed status on September 30, 2019 for completion of his parenteral antibiotics for his MSSA bacteremia and lumbar discitis. His current hospitalization under swing bed status was complicated by the development of C. difficile colitis for which he was treated with oral vancomycin. His stay was also further complicated by mechanical fall while he was bending over reaching for something he lost his balance and struck his head. This occurred on October 12, 2019 he was left with an abrasion over his forehead he was placed in a c-collar and a CT scan of his head and neck was performed CT of the cervical spine showed no fracture or subluxation. CT scan of the head showed no acute intracranial process. Patient continued his treatment under swing bed status including physical therapy as well as his Ancef and his oral vancomycin. On October 15, 2019 he developed protracted vomiting, as well as diarrhea. He denied abdominal pain but because of the protracted vomiting he was made n.p.o. and x-ray imaging of his abdomen which demonstrated a developing ileus versus partial small bowel obstruction with moderate to severe dilatation of the visualized loops with air noted in the rectal vault but no free air. He was treated with NGT, bowel rest and IV fluids. he was started on IV flagyl for his cdiff. he was subsequently admitted to acute care for further evaluation and treatment. his symptoms slowly improved, he started passing flatus and stooling. His NGT was discontinued and diet advanced which he tolerated well. He has been hemodynamically stable, oxygenating well on room air with no c/o. Review of Systems Constitutional Constitutional: Denies fever(s) and Reports increased appetite Eyes Eyes: Denies change in vision ENT Ears, Nose, Mouth, and Throat: Denies dysphagia and Denies dizziness Cardiovascular Cardiovascular: Denies chest pain and Denies dyspnea Respiratory Respiratory: Denies chest congestion, Denies cough and Denies dyspnea Gastrointestinal Gastrointestinal: Denies abdominal pain, Denies constipation, Denies dysphagia, Denies nausea and Denies vomiting Genitourinary Genitourinary: Denies difficulty urinating Musculoskeletal Musculoskeletal: Reports back pain (improving) and Reports arthralgias Integumentary/Breasts Skin/Breast: Denies lesions Neurologic Neurologic: Denies confusion and Denies dizziness Psychiatric Psychiatric: Denies confusion [facility] Medical History (Updated 10/21/19 @ 14:43 by Tran Flores NP) Anemia of chronic disease (Acute) BPH (benign prostatic hyperplasia) (Chronic) Conductive hearing loss (Acute) Dehydration (Acute) Epidural abscess (Acute ~10/09/13) Erectile dysfunction (Inactive) History of Clostridioides difficile colitis (Resolved ~10/2013) History of small bowel obstruction (Acute 07/12/15) MSSA (methicillin susceptible Staphylococcus aureus) septicemia (Acute 10/09/13) in setting of ruputured appendicitis and found to have disciitis epidural abscess, [facility], [place], [place]; Dr. Casey Mixon, infectious disease Osteomyelitis of vertebra of thoracolumbar region (Acute ~10/09/13) treated w/ 6 weeks of Ancef; seen by Dr. Casey Mixon, infectious disease, [facility], [place], [place]; completed treatment 11/20/2013; complicated by C. difficile colitis Panic anxiety syndrome (Acute) SBO (small bowel obstruction) (Acute) Sensorineural hearing loss (Acute) Surgical History H/O sinus surgery (Acute) History of bilateral cataract extraction (Acute) History of cholecystectomy (Chronic ~1998) History of tonsillectomy and adenoidectomy (Acute) S/P laparoscopic appendectomy (Acute 10/09/13) S/P left inguinal hernia repair (Acute) Social History Smoking/Tobacco Use Status: Former Tobacco Use Alcohol Intake: never Drug use: Never Substance use type: does not use Do you feel safe at home: Yes Do you feel safe in your relationship?: Yes Meds Home Medications and Allergies Home Medications Medication Instructions Recorded Confirmed Type finasteride [Proscar] 5 mg PO DAILY 07/25/17 10/22/19 History levothyroxine [Synthroid] 25 mcg PO DAILY 07/25/17 10/22/19 History simvastatin 10 mg PO DAILY 07/25/17 10/22/19 History tamsulosin 0.4 mg PO BID 07/25/17 10/22/19 History vacuum erection device system #1 each 03/28/18 10/22/19 Rx Allergies Allergy/AdvReac Type Severity Reaction Status Date / Time Penicillins Allergy Mild Skin Rash Unverified 03/20/18 14:02 aspirin AdvReac Mild GI Bleeding Unverified 03/20/18 14:02 Exam Const General: cooperative, healthy appearing, comfortable, no acute distress and well developed Nutritional Appearance: average body habitus Orientation: alert, awake and oriented x3 HENMT Head: normocephalic and abrasion left frontal Face and sinus: normal facial exam Mouth: oral mucosae normal Resp Effort & Inspection: normal respiratory effort Auscultation: clear to auscultation bilaterally Cardio Rate: regular rate Rhythm: regular rhythm GI Inspection: normal to inspection Palpation: soft Auscultation: normal bowel sounds Skin Lesions: lesion noted (scab left forehead) Rashes: no rashes Neuro General: patient alert, patient awake and patient oriented x3 Extrem General: normal to inspection, full ROM and no pedal edema COVID-19 Screening In the past 14 days, have you traveled outside of [place] or [place]?: NO
--- NOTE | 2019-10-22 14:10 | NUR.NOTE ---
Nursing Note: 1202: pt discharged from acute to [facility] at this time. pt remains in room 210.
--- NOTE | 2019-10-22 15:09 | PHA.REVIEW ---
Pharmacy Admission Review - Admission Clinical Review (Last Updated 10/16/19 @ 14:22 by Abena Mckeon, DO) Clostridium difficile enterocolitis (Acute) Essential hypertension (Acute) Lumbar discitis (Acute) MSSA bacteremia (Acute) Discharge planning issues (Acute) Penicillins Allergy (Mild, Unverified 03/20/18 14:02) Skin Rash aspirin Adverse Reaction (Mild, Unverified 03/20/18 14:02) GI Bleeding Height 5 ft 10.08 in Weight 76.1 kg - Comments Comments/Follow Ups: Patient has returned back to swing bed status to complete full course of antibiotics for MSSA bacteremia following acute complication related to development of a SBO -- began Cefazolin 2g IV q8h on 09/25/2019 @ 1800 - Renal Dosing Medications needing adjustments: Reviewed - Anticoagulation DVT Prohphylaxis: N/A - Opiate Usage Evaluate Pain Scale/Pains Meds: N/A - DM Control Insulin Dosing: N/A - Heart Failure/PR EF%, MATY's, B-Blockers, Diuretics: Reviewed - IV to PO Switch IV Medications: Intervened (Metronidazole IV dc'd as PO vanco was restarted)
[2019-10-22 15:20] VITALS: BP 129/64; PULSE 76; RESP 18; TEMP 37.2; O2SAT 95
--- NOTE | 2019-10-22 15:48 | CMPROGNOTE_ITS ---
- If Service Date Differs Date of service: 10/22/19 Time of Service: 15:48 Care Management Progress Note S/O: Dawit has been medically cleared to transition to SWB level one today to complete his course of IV abx. He will also benefit from continuing to work with PT while on SWB status. CM discussed his status change and answered questions and concerns from the patient. Dawit requested to speak with the provider, which CM attended to. Dawit is agreeable to the plan. CM will continue to follow. A: Dawit is a 74 year old male admitted to [facility] on 10/15/19 from SWB status for an Ileus. P: Dawit will transition to SWB level one for IV abx treatment as well as PT today from acute status. CM went over assessment and plan of care with patient. CM completed inpatient IMM as well as SWB agreement with Dawit. Once Dawit's goals are met he will discharge home with no anticipated services. PT may recommend a FWW, if necessary, although Dawit is not currently agreeable to owning one. CM will continue to follow and support discharge planning considerations.
--- NOTE | 2019-10-22 16:06 | IN_ITS ---
Date of service: 10/22/19 Time of Service: 10:57 PT Notes Visit Reasons: MSSA BACTEREMIA,CDIFF,ILEUS Physical Therapy Inpatient Swing Bed Level 1 Initial Evaluation Date: 10/22/2019 Referring Doctor: Ralph Brito MD PT Orders: PT CONSULT: Extended-stay weakness. Limited ability. Precautions: Fall. Standard. Activity as tolerated. Patient Profile/Admitting Diagnosis: Dawti converts back to swing bed level 1 as of 10/22/2019. Patient is a 74-year-old male who presented to the ED on 09/21/2019 via EMS with chief complaints of generalized weakness that started 2 days prior to admission that has resulted to a fall on his way to his bathroom in his apartment and a left abdominal discomfort. Patient is diagnosed with pneumonia with MSSA bacteremia, acute rhabdomyolysis, increased opponent, back pain with question of vertebral osteomyelitis or discitis, neck pain, transaminitis, and ambulatory dysfunction. Patient tested negative for COVID-19 on as of 09/14/2019 at 20 3:16 PM. Orders were sent in for physical therapy to address impairments and strength, balance, and activity tolerance. PMHX: Medical History (Updated 09/22/19 @ 10:34 by Shi Alonzo MD) Erectile dysfunction (Inactive) Surgical History (Updated 09/22/19 @ 10:32 by Shi Alonzo MD) S/P left inguinal hernia repair (Acute) Social History/Home Situation: Patient lives alone on the second floor of an apartment building with no steps to enter. He uses an elevator to reach the entrance of his apartment. He is independent with all activities of daily living not requiring any assistive ambulatory device nor adaptive equipment. He still drives. His passed 3 years ago and he has been seeing a counselor to manage his grief. Equipment Owned/DME: Patient states that his used a walker and a cane which can both be available to him if needed. Subjective: Dawit continues to be frustrated about not being able to return to independent level using his walker inside his room. He began to get receptive of PT recommendations as soon as balance tests were done with him the results of which made him realize that he continues to to need assistance for safety. Objective: General Observation: IV access in right UE. R-sided torticollis (acquired?). Genu varum. Mental Status: Alert and oriented as to person place and time Pain: 1-2/10 in the neck area especially with end range of neck motions ROM: Neck: Rotation to L about 40 degrees. Rotation to R about 45 degrees. Lateral flexion to L abut 25 degrees. Lateral flexion to R about 30 degrees. Right Upper Extremity: Shoulder Flexion WFL. Shoulder abduction WFL. Elbow flexion WFL. Wrist flexion WFL. Opening and closing of hand WFL. Left Upper Extremity: Shoulder Flexion WFL. Shoulder abduction WFL. Elbow flexion WFL. Wrist flexion WFL. Opening and closing of hand WFL. Right Lower Extremity: Hip flexion WFL. Hip abduction WFL. Knee flexion WFL. Ankle dorsiflexion WFL. Ankle plantarflexion WFL. Left Lower Extremity: Hip flexion WFL. Hip abduction WFL. Knee flexion WFL. Ankle dorsiflexion WFL. Ankle plantarflexion WFL. Strength: Right Upper Extremity: Shoulder flexors 4/5. Shoulder abductors 4/5. Elbow flexors 4/5. Elbow extensors 4/5. Manufacturing Sales Representative strong. Left Upper Extremity: Shoulder flexors 4/5. Shoulder abductors 4/5. Elbow flexors 4/5. Elbow extensors 4/5. Manufacturing Sales Representative strong. Right Lower Extremity: Hip flexors 4/5. Hip abductors 4/5. Knee flexors 4/5. Knee extensors 4/5. Ankle dorsiflexors 4/5. Ankle plantarflexors 4-/5. Left Lower Extremity:Hip flexors 4/5. Hip abductors 4/5. Knee flexors 4/5. Knee extensors 4/5. Ankle dorsiflexors 4/5. Ankle plantarflexors 4-/5. Sensation: Intact as to pain and pressure on bilateral lower extremities. Bed Mobility/Transfers: Rolling I Supine to sit I with HOB to 30 degrees and using BUE for support Sit to supine I with HOB to 30 degrees and using BUE for support Sit to stand Supervision using BUE for support, minimal cueing required Stand to sit Supervision using BUE for support, minimal cueing required Bed to chair Supervision using BUE for support, minimal cueing required Chair to bed Supervision using BUE for support, minimal cueing required Gait: Patient was able to tolerate level surface ambulation of 1300 feet with supervision using front wheeled walker with full weight bearing. Chayo beginning to increase. Denied increased discomfort and pain and abdominal area. Balance: Static Sitting: Normal Dynamic Sitting: Normal Static Standing: Fair Dynamic Standing: Fair Special Tests: Mobility Limitations Standardized Measure [facility] AM-PAC 6 clicks Basic Mobility Inpatient Short Form: Raw Score: 23 CMS Score: 11 % deficit 4 stage balance test: Patient was able to maintain feet together for 10 seconds but are not able to hold self up for the semi-tandem, full tandem, as well as 1 legged stance indicating continued risk for falls. Patient was advised that he will continue to be at supervision level for all mobility ADL performance as on 10/22/2019 basing on this balance test. Tinetti Balance test: Patient scored 8/28 indicating high risk for falls at this time. Patient was advised that he will continue to be at supervision level for all mobility ADL performance as on 10/22/2019 basing on this balance test. Informed Consent/Education: Patient instructed in purpose of PT consult and continued plan of care via swing bed status. Assessment: Patient converts to swing bed level 1 as of 10/22/2019. Balance tests have been re-administered indicating continued need for supervision assist and use of walker at all times. Patient demonstrates continued need for the use of an assistive ambulatory device for all mobility ADL performance now downgraded back to requiring supervision assist for safety, new diagnosis of small bowel obstruction, and due to recent fall this week. Continued skilled services will be provided under acute level of care in order to achieve established goals. Patient is a 74-year-old male who presented to the ED on 09/21/2019 via EMS with chief complaints of generalized weakness that started 2 days prior to admission that has resulted to a fall on his way to his bathroom in his apartment and a left abdominal discomfort. Patient is diagnosed with pneumonia with MSSA bacteremia, acute rhabdomyolysis, increased opponent, back pain with question of vertebral osteomyelitis or discitis, neck pain, transaminitis, and ambulatory dysfunction. Patient tested negative for COVID-19 on as of 09/14/2019 at 20 3:16 PM. Orders were sent in for physical therapy to address continued impairments with strength, balance, and activity tolerance due to Functional mobility decline. Generalized muscle weakness. Patient presents with clinical signs and symptoms consistent with current/ admitting diagnoses that have resulted to mobility limitations, gait instability, generalized weakness, and impairment of motor control as demonstrated by the following impairment level findings: 1. Decreased strength to B UE and B LE major muscle groups 2. Impaired dynamic standing balance 3. Impaired activity tolerance Impairments are contributing to the following functional limitations: 1. Increased dependence with transfers 2. Inability to safely ambulate without assistive device and physical assistance 3. Increase completion time for mobility ADL performance 4. Increased fall risk Patient is assessed as a 44842 moderate complexity based on the following: History: 74-year-old male waiting for impairment level findings, functional limitations, and medical history as indicated above Examination: Demonstrable impairment in strength, balance, and range of motion with underlying impairments and functional limitations as documented above Presentation: Evolving Decision Makin moderate complexity Goals: Goals X1 week 1. Sit-Stand independent 2. Stand-Sit independent 3. Bed-Chair independent 4. Chair-Bed independent 5. Independent gait on level surface with use of least restrictive device for at least 800 feet without report of pain nor dyspnea 6. Independent stair negotiation while holding onto bilateral rails for at least 10 steps without report of pain nor dyspnea 7. Independent with home exercise program 8. Good static and dynamic standing balance/tolerance Plan of Care/Treatment Plan: 1-2x/day, 7 days/week x 1 week. Initiate Physical Therapy intervention for strengthening, bed mobility, transfers, gait, stairs, balance training, use of assistive device. PT Intervention: Session today consisted of initial physical therapy evaluation for acute level of care as well as education training on mobility ADL performance using the front wheeled walker. DISCHARGE RECOMMENDATIONS: Patient will benefit from home health PT services in order to progress mobility level using least restrictive assistive ambulatory device, assess home safety, identify additional equipment needs, and establish a functional maintenance program that will increase ability of patient to remain at home. TREATMENT CODE/TIME: 08189 x 15 minutes, 56750 x 27 minutes beginning at 10:57 AM. Thank you very much for this referral. Ariane Poe PT, DPT, CLT [facility] In[facility] at [place], [place]
--- NOTE | 2019-10-22 16:11 | CMSA_ITS ---
- If Service Date Differs Date of service: 10/22/19 Time of Service: 16:11 SB Psychosocial/Act.Assessment - Hospital Admission Admission Date: 10/15/19 Admission From:: [facility] Diagnosis:: Ileus vs SBO, MSSA Bacteremia - Swing Bed Admission Swing Bed Admit Date:: 10/22/19 Swing Bed Level of Care: Level 1/SNF - Social Supports PREVIOUS FUNCTIONAL STATUS/SOCIAL/FAMILY SUPPORTS:: Willy lives alone in [place], [place]. 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 He moved to [place] after his . He is independent at baseline. - Prior to Admission Living Arrangements/Environment Prior to Admission:: Dawit lives alone in an apartment. 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 - : No 's Spouse: No - Benefits Financial: Social Security, Medicare - Anabaptist Active Mandaeism Member:: No Mandaeism Affliation: Zoroastrian - Advance Directives for Healthcare Advance Directives for Healthcare: Advance Directives Advance Directive Agent: Miladis Helm - Interests Sports:: Enjoys watching MLB, specifically Red Sox. - Present Functional Status Physical Abilities:: Improving, but still requiring assistance with a FWW. Cognitive:: Intact. AOx3 Communication:: Enjoys talking with staff. Good communication. Sensory Systems: Intact Behavior:: Cooperative, pleasant and engaged. - Medical History PAST MEDICAL HISTORY/PAST SURGICAL HISTORY:: Left inguinal hernia, erectile dysfunction - Admission Data Reason for Swing Bed Admission:: IV abx for MSSA Bacteremia Discharge Plan:: Dawit will return home once his IV abx course is complete. No anticipated services at this time. He may need a FWW, if recommended by PT. Assessment: Dawit is a pleasant 74 year old male admitted to [facility] level one for IV abx due to MSSA Bacteremia. He lives alone in [facility]. His local support is his Patricia velazquez, who is also his AD agent. Once his IV abx course is complete, he will return home with no anticipated services. Continued evaluations will be offered for additional support at home, if needed.
--- NOTE | 2019-10-22 16:24 | CM.SWINGPC ---
- If Service Date Differs Date of service: 10/22/19 Time of Service: 16:24 Swingbed Plan of Care Plan of care: SWING BED PROGRAM ACTIVITIES/DISCHARGE PLAN OF CARE ACTIVITIES PLAN Date: 10/22/19 Identified Need: Individual activities Intervention/Plan: Activity cart, television, patient computer, music tablet, phone in the room, Face time video with family when requested, other activities not available at this time due to COVID precautions Initials KM DISCHARGE PLAN Date: 10/22/19 Identified Need: IV abx for MSSA Bacteremia Intervention/Plan: IV abx through November 08, then discharge home. Initials KM
[2019-10-22] MEDS: Normal Saline Flush 10 ML SYR IVP (19:48)
[2019-10-22] MEDS: ceFAZolin 2 GM/50 ML BAG IVPB (19:48)
[2019-10-22] MEDS: Tamsulosin 0.4 MG CAPCR PO (19:49)
[2019-10-22] MEDS: Ferrous Sulfate 325 MG TAB PO (19:49)
[2019-10-23] MEDS: Normal Saline Flush 10 ML SYR IVP ×5 (03:32→21:35)
[2019-10-23] MEDS: ceFAZolin 2 GM/50 ML BAG IVPB ×2 (03:32→11:27)
[2019-10-23] MEDS: Levothyroxine 25 MCG TAB PO (06:35)
[2019-10-23 08:39] VITALS: BP 152/71; PULSE 85; RESP 17; TEMP 36.8; O2SAT 96
[2019-10-23] MEDS: Tamsulosin 0.4 MG CAPCR PO ×2 (09:23→20:16)
[2019-10-23] MEDS: Ferrous Sulfate 325 MG TAB PO ×2 (09:24→20:16)
[2019-10-23] MEDS: Magnesium Gluconate 500 MG TAB PO (09:24)
[2019-10-23] MEDS: Lidocaine 5% Patch 1 PATCH TP (09:24)
[2019-10-23] MEDS: Finasteride 5 MG TAB PO (09:24)
[2019-10-23] MEDS: Pantoprazole 40 MG VIAL IVP (09:28)
--- NOTE | 2019-10-23 10:02 | PT.INTREAT ---
Date of service: 10/23/19 Time of Service: 10:02 PT Notes Visit Reasons: MSSA BACTEREMIA,CDIFF,ILEUS Inpatient Physical Therapy Treatment Note Date:10/23/2019 PRECAUTIONS: Fall. Standard. Contact precautions due to C-Diff. Activity as tolerated. SUBJECTIVE: I want to walk out of here without a walker. Patient is bound and determined to get rid of walker in time for when his antibiotic regimen gets done in about 2 weeks. He is happy about being able to sleep longer last night, waking up at about 8 am this morning. Today, he states how much he understands why he still cannot go back to being independent in his room and was apologetic to this PT about his outburst yesterday. OBJECTIVE: General Observation: Patient sitting on chair. IV in the right UE. Mental Status: Alert and oriented x4 Pain: None reported BED MOBILITY/TRANSFERS Supine-sit: Independent Sit-supine: Independent Sit-stand: Supervision using BUE for support with front wheeled walker Stand-sit: Supervision using BUE for support GAIT Assistive Device: Front wheel walker Weight bearing: Full weight bearing Assist: Supervision Distance: 260 x 2 Deviation: Chayo increasing. No LOB. No increased posterior sway. Step length and width increasing. THERA EX: Patient worked hard today at performing standing level strengthening exercises with 3 pound ankle weights on both sides performing hip flexion x20, hip abduction x20, hip extension x20, heel raises x20, and high marching in place x20 while holding onto a stair rail in the therapy gym with intermittent pursed lip breathing integrated. ASSESSMENT: Balance for stage balance test and Tinetti balance test were both performed yesterday to support recommendation of continuing with supervision for all mobility ADL performance for patient. Patient initially did not take this well and was a little bit indignant about it. Today, he is more positive and he upgraded his goal to walk out of the hospital without a walker and committed to working hard with PT in order to achieve this new goal. Patient will continue to be seen once a day 7 days a week in order to meet said goal. PLAN: 1x/day, 7 days/week x 1 week. Continue with physical Therapy intervention for strengthening, bed mobility, transfers, gait, stairs, balance training, use of assistive device. TREATMENT CODE/TIME: 55911 x 19 minutes, 25015 x 25 minutes beginning at 10:02 AM.
[2019-10-23 11:17] VITALS: BP 138/69; PULSE 79; RESP 18; TEMP 36.3; O2SAT 97
[2019-10-23 15:35] VITALS: BP 158/70; PULSE 75; RESP 19; TEMP 36.7; O2SAT 99
[2019-10-23 19:05] VITALS: BP 162/63; PULSE 87; TEMP 36.3; O2SAT 97
[2019-10-23] MEDS: methylPREDNISolone SUCC 125 MG VIAL IVP (20:17)
[2019-10-23] MEDS: VANCOMYCIN 2,000 MG in Normal Saline 500 ML 250 MG IVPB (21:35)
[2019-10-24] MEDS: Normal Saline Flush 10 ML SYR IVP ×4 (06:35→15:15)
[2019-10-24] MEDS: Levothyroxine 25 MCG TAB PO (06:35)
[2019-10-24 07:51] VITALS: BP 167/73; PULSE 84; RESP 17; TEMP 36.6; O2SAT 97
[2019-10-24] MEDS: Pantoprazole 40 MG VIAL IVP (08:04)
[2019-10-24] MEDS: Tamsulosin 0.4 MG CAPCR PO ×2 (08:05→20:33)
[2019-10-24] MEDS: Finasteride 5 MG TAB PO (08:05)
[2019-10-24] MEDS: Ferrous Sulfate 325 MG TAB PO ×2 (08:05→20:32)
[2019-10-24] MEDS: Magnesium Gluconate 500 MG TAB PO (08:05)
[2019-10-24 08:21] LABS: Abs Immature Grans 0.07 k/cumm (0.0-0.09); Absolute Basophil Count 0.01 k/cumm (0.0-0.2); Absolute Lymphocyte Count 0.44 k/cumm (1.2-3.4); Absolute Monocyte Count 0.07 k/cumm (0.11-0.7); Absolute Neutrophil Count 6.92 k/cumm (1.2-6.7); Basophils % 0.1; HGB 8.2 g/dL (13.5-17.5); Immature Grans % 0.9 %; Lymphocytes % 5.9; Mean Corp. HGB Concentration 31.5 g/dL (32.0-36.0); Mean Corpuscular Hemoglobin 29.7 pg (27.0-33.0); Mean Corpuscular Volume 94.2 fL (80-95); Mean Platelet Volume 8.8 fL (8.0-11.0); Monocytes % 0.9; Neutrophils % 92.2; Platelet Count 274 x1000/uL (130-400); RBC 2.76 m/cumm (4.50-6.00); RBC Distribution Width 13.3 % (11.8-14.1); White Blood Cell Count 7.51 k/cumm (4.4-10.8)
[2019-10-24 08:43] LABS: ALT 7 U/L (16-63); AST 21 U/L (15-37); Albumin 1.8 g/dL (3.4-5.0); Alkaline Phosphatase 89 U/L (46-116); Anion Gap 7.2 mmol/L (3-11); BUN 13 mg/dL (7-18); Bilirubin, Total 0.3 mg/dL (0.2-1.0); C-Reactive Protein 0.66 mg/dL (0.0-0.3); CO2 22.8 mmol/L (21.0-32.0); CREATININE 1.13 mg/dL (0.70-1.30); Calcium 8.1 mg/dL (8.5-10.1); Chloride 106 mmol/L (98-107); Creatine Kinase 49 U/L (39-308); Glucose 200 mg/dL (74-106); Potassium 4.7 mmol/L (3.5-5.1); Sodium 136 mmol/L (136-145); Total Protein 5.7 g/dL (6.4-8.2)
[2019-10-24 08:54] LABS: INR 1.1 (0.9-1.1); PTT Activated 23.8 sec (21.0-31.4); Prothrombin Time 10.7 sec (9.3-11.0)
[2019-10-24] MEDS: Lidocaine 5% Patch 1 PATCH TP (09:19)
--- NOTE | 2019-10-24 10:36 | PT.INTREAT ---
Date of service: 10/24/19 Time of Service: 09:50 PT Notes Visit Reasons: MSSA BACTEREMIA,CDIFF,ILEUS PRECAUTIONS: Fall. Standard. Contact precautions due to C-Diff. Activity as tolerated. SUBJECTIVE: No complaints, encouraged to get better and be more functional. OBJECTIVE: General Observation: Patient sitting on chair. Mental Status: Alert and oriented x4 Pain: None reported BED MOBILITY/TRANSFERS Sit-stand: Supervision using BUE for support with front wheeled walker Stand-sit: Supervision using BUE for support GAIT Assistive Device: Front wheel walker x 150 ft S, No AD 250ft CG Weight bearing: Full weight bearing Assist: Supervision with FWW, CG with no FWW Deviation: Good step length, mild posterior sway. THERA EX/NEURO-ADE: Per flow sheet, progressing to 4 pound weights with leg strengthening, initiating balance activities. ASSESSMENT: Patient was steady with ambulation without FWW, but due to posterior sway, quick fatigue, and general weakness requires CG. He was very encouraged by progressions today. Did require 3-4 rest periods. PLAN: 1x/day, 7 days/week x 1 week. Continue with physical Therapy intervention for strengthening, bed mobility, transfers, gait, stairs, balance training, use of assistive device. TREATMENT CODE/TIME: 85082, 31913, 26598 beginning at 9:50 a.m.
[2019-10-24] MEDS: Acetaminophen 325 MG TAB 650 MG PO (11:03)
[2019-10-24 11:58] LABS: ESR 67 mm/hr (1-20)
--- NOTE | 2019-10-24 14:37 | W.PM.PROGNOT ---
Date of Service Date of service: 10/24/19 Time of Service: 14:37 Assessment and Plan Assessment and plan (1) Erythema multiforme: Status: Acute Assessment and plan: suspect from cefazolin. improving now off it. ID recommends ceftriaxone. if his rash worsens or he develops allergy to ceftriaxone recommendations for daptomycin, she advises against cipro or vancomycin. (2) MSSA bacteremia: Status: Acute Assessment and plan: with lumbar discitis, ?osteomyelitis. developed a multiforme rash thought to be due to ancef. He received one dose of vancomycin last night and case discussed with [facility] ID who recommends ceftriaxone moving forward. His rash has improved since ancef discontinued. I did call ID back to discuss pcn allergy and she still recommends ceftriaxone at this point. Only if he fails ceftriaxone d/t rash or allergy should we switch to daptomycin. she advises against vanco or cipro. Needs antibiotics thru 11/09/2019. cefazolin added to his list of allergies. Transthoracic echo negative for endocarditis. surveillance labs on mondays (3) Clostridium difficile enterocolitis: Status: Acute Assessment and plan: will continue oral vancomycin while on antibiotics (4) Essential hypertension: Status: Acute Assessment and plan: stable, continue to monitor and adjust medications as needed. (5) Lumbar discitis: Status: Acute Assessment and plan: stable, continue pain management (6) Discharge planning issues: Status: Acute Assessment and plan: will need to stay until 11/08 to complete course of antibiotics. anticipate discharge to home with no services once completed. Subjective Subjective Patient reports: afebrile Interval history since last seen: developed a multiforme rash on his abdomen and thighs last night. he has not had fever and rash does not itch and is not painful. no other c/o. he is eating and drinking well, bowels and bladder functioning. hemodynamically stable. Exam Const General: cooperative, healthy appearing, comfortable, no acute distress and well developed Nutritional Appearance: average body habitus Orientation: alert, awake and oriented x3 HENMT Head: normocephalic and abrasion left frontal Face and sinus: normal facial exam Mouth: oral mucosae normal Resp Effort & Inspection: normal respiratory effort Auscultation: clear to auscultation bilaterally Cardio Rate: regular rate Rhythm: regular rhythm GI Inspection: normal to inspection Palpation: soft Auscultation: normal bowel sounds Skin Lesions: lesion noted (scab left forehead) Rashes: rashes noted (multiforme rash on abdomen and thighs, ) Neuro General: patient alert, patient awake and patient oriented x3 Extrem General: normal to inspection, full ROM and no pedal edema Objective Objective Clinical Data: Abnormal lab results 10/24/19 10/24/19 10/24/19 Range/Units 08:00 08:00 11:15 RBC 2.76 L (4.50-6.00) m/cumm Hgb 8.2 L (13.5-17.5) g/dL Hct 26.0 L (40.0-50.0) % MCHC 31.5 L (32.0-36.0) g/dL Absolute Neutrophils 6.92 H (1.2-6.7) k/cumm Absolute Lymphocytes 0.44 L (1.2-3.4) k/cumm Absolute Monocytes 0.07 L (0.11-0.7) k/cumm ESR 67 H (1-20) mm/hr Glucose 200 H D (74-106) mg/dL Calcium 8.1 L (8.5-10.1) mg/dL ALT 7 L (16-63) U/L C-Reactive Protein 0.66 H (0.0-0.3) mg/dL Total Protein 5.7 L (6.4-8.2) g/dL Albumin 1.8 L (3.4-5.0) g/dL Vital Signs Temperature 36.6 C 10/24/19 07:51 Temperature Source Tympanic 10/24/19 07:51 Pulse 84 10/24/19 07:51 Pulse Rhythm Regular 10/24/19 04:54 Respiratory Rate 17 10/24/19 07:51 Respiratory Effort 10/24/19 04:54 Respiratory Depth Normal 10/24/19 04:54 Respiratory Pattern Normal 10/24/19 04:54 Blood Pressure 167/73 H 10/24/19 07:51 Pulse Oximetry 97 10/24/19 07:51 Oxygen Delivery Method Room Air 10/24/19 07:51 Oxygen Flow Rate 0 10/24/19 07:51 Fraction of Inspired Oxygen (FIO2) 21 10/23/19 10:24 Pain Level 0 10/24/19 07:51 Intake & Output 05/10/24/19 10/24/19 23:59 11:59 23:59 Intake Total 380 / 930 470 / 1420 950 / 1420 Output Total 850 / 2250 400 / 500 100 / 500 Balance -470 / -1320 70 / 920 850 / 920 Intake: IV Oral 360 / 840 450 / 1400 950 / 1400 Output: Urine 850 / 2250 400 / 500 100 / 500 Other: Urine Color Yellow Light Analilia Light Analilia Urine Appearance Clear Clear Clear Urine Odor Normal Normal None Stool Size Large Small Stool Characteristics Liquid Liquid Brown Black Voiding Methods Toilet Urinal Toilet Laboratory Results WBC 7.51 k/cumm (4.4-10.8) 10/24/19 08:00 RBC 2.76 m/cumm (4.50-6.00) L 10/24/19 08:00 Hgb 8.2 g/dL (13.5-17.5) L 10/24/19 08:00 Hct 26.0 % (40.0-50.0) L 10/24/19 08:00 MCV 94.2 fL (80-95) 10/24/19 08:00 MCH 29.7 pg (27.0-33.0) 10/24/19 08:00 MCHC 31.5 g/dL (32.0-36.0) L 10/24/19 08:00 RDW 13.3 % (11.8-14.1) 10/24/19 08:00 Plt Count 274 x1000/uL (130-400) 10/24/19 08:00 MPV 8.8 fL (8.0-11.0) 10/24/19 08:00 Immature Gran % 0.9 % 10/24/19 08:00 Neutrophils % 92.2 10/24/19 08:00 Lymphocytes % 5.9 10/24/19 08:00 Monocytes % 0.9 10/24/19 08:00 Eosinophils % 0.0 10/24/19 08:00 Basophils % 0.1 10/24/19 08:00 Absolute Neutrophils 6.92 k/cumm (1.2-6.7) H 10/24/19 08:00 Absolute Lymphocytes 0.44 k/cumm (1.2-3.4) L 10/24/19 08:00 Absolute Monocytes 0.07 k/cumm (0.11-0.7) L 10/24/19 08:00 Absolute Eosinophils 0.00 k/cumm (0.0-0.7) 10/24/19 08:00 Absolute Basophils 0.01 k/cumm (0.0-0.2) 10/24/19 08:00 ESR 67 mm/hr (1-20) H 10/24/19 11:15 PT 10.7 sec (9.3-11.0) 10/24/19 08:00 INR 1.1 (0.9-1.1) 10/24/19 08:00 APTT 23.8 sec (21.0-31.4) 10/24/19 08:00 Sodium 136 mmol/L (136-145) 10/24/19 08:00 Potassium 4.7 mmol/L (3.5-5.1) D 10/24/19 08:00 Chloride 106 mmol/L (98-107) 10/24/19 08:00 Carbon Dioxide 22.8 mmol/L (21.0-32.0) 10/24/19 08:00 Anion Gap 7.2 mmol/L (3-11) 10/24/19 08:00 BUN 13 mg/dL (7-18) 10/24/19 08:00 Creatinine 1.13 mg/dL (0.70-1.30) 10/24/19 08:00 Estimated GFR/1.73 m2 >= 60.00 (mL/min/1.73m2) 10/24/19 08:00 Glucose 200 mg/dL (74-106) H D 10/24/19 08:00 Calcium 8.1 mg/dL (8.5-10.1) L 10/24/19 08:00 Total Bilirubin 0.3 mg/dL (0.2-1.0) 10/24/19 08:00 AST 21 U/L (15-37) 10/24/19 08:00 ALT 7 U/L (16-63) L 10/24/19 08:00 Alkaline Phosphatase 89 U/L (46-116) 10/24/19 08:00 Creatine Kinase 49 U/L (39-308) 10/24/19 08:00 C-Reactive Protein 0.66 mg/dL (0.0-0.3) H 10/24/19 08:00 Total Protein 5.7 g/dL (6.4-8.2) L 10/24/19 08:00 Albumin 1.8 g/dL (3.4-5.0) L 10/24/19 08:00
[2019-10-24] MEDS: cefTRIAXone 2 GM/50 ML BAG IVPB (15:14)
[2019-10-25] MEDS: Normal Saline Flush 10 ML SYR IVP (04:03)
[2019-10-25] MEDS: Levothyroxine 25 MCG TAB PO (06:19)
[2019-10-25 07:22] VITALS: BP 123/61; PULSE 67; RESP 17; TEMP 37.2; O2SAT 97
[2019-10-25] MEDS: Acetaminophen 325 MG TAB 650 MG PO (08:43)
[2019-10-25] MEDS: Magnesium Gluconate 500 MG TAB PO (08:44)
[2019-10-25] MEDS: Finasteride 5 MG TAB PO (08:44)
[2019-10-25] MEDS: Ferrous Sulfate 325 MG TAB PO ×2 (08:44→19:46)
[2019-10-25] MEDS: Tamsulosin 0.4 MG CAPCR PO ×2 (08:44→19:46)
[2019-10-25] MEDS: Lidocaine 5% Patch 1 PATCH TP (08:45)
[2019-10-25] MEDS: Normal Saline Flush 10 ML SYR 20 ML IVP ×2 (08:45→19:46)
[2019-10-25] MEDS: Pantoprazole 40 MG VIAL IVP (08:45)
--- NOTE | 2019-10-25 10:11 | PTTR_ITS ---
Date of service: 10/25/19 Time of Service: 09:20 PT Notes Visit Reasons: MSSA BACTEREMIA,CDIFF,ILEUS PRECAUTIONS: Fall. Standard. Contact precautions due to C-Diff. Activity as tolerated. SUBJECTIVE: :Owings encouraged after yesterday's increase in exercise. He walked the big loop last night 20 times with nursing. OBJECTIVE: General Observation: Patient sitting on chair, just showered. Mental Status: Alert and oriented x4 Pain: None reported BED MOBILITY/TRANSFERS Sit-stand: Distant supervision to FWW Stand-sit: Distant Supervision using BUE for support GAIT Assistive Device: Front wheel walker x 150 ft S, No AD 780ft CGA Weight bearing: Full weight bearing Deviation: Improved posture, and use of postural muscles with ambulation. THERA EX/NEURO-ADE: Per flow sheet, progressing leg strengthening, progressed balance activities. Allowed for less break time today to push endurance. ASSESSMENT: Patient demonstrated improved endurance, and improved steadiness with ambulation. He is transitioning to stage of being able to ambulate independently with FWW outside of the room. He is appropriate to receive ther ex increase as tolerated. PLAN: 1x/day, 7 days/week x 1 week. Continue with physical Therapy intervention for strengthening, bed mobility, transfers, gait, stairs, balance training, use of assistive device. TREATMENT CODE/TIME: 45 min. 55997, 86957, 40908 beginning at 9:20a.m.
--- NOTE | 2019-10-25 10:47 | W.PM.PROGNOT ---
Date of Service Date of service: 10/25/19 Time of Service: 10:48 Subjective Subjective Interval history since last seen: Rash is improving. Dawit is feeling better today. Will continue to [facility]. Objective Objective Clinical Data: Abnormal lab results 10/24/19 Range/Units 11:15 ESR 67 H (1-20) mm/hr Vital Signs Temperature 37.2 C 10/25/19 07:22 Temperature Source Tympanic 10/25/19 07:22 Pulse 67 10/25/19 07:22 Pulse Rhythm Regular 10/25/19 10:08 Respiratory Rate 17 10/25/19 07:22 Respiratory Effort Non-Labored 10/25/19 10:08 Respiratory Depth Normal 10/25/19 10:08 Respiratory Pattern Normal 10/25/19 10:08 Blood Pressure 123/61 10/25/19 07:22 Pulse Oximetry 97 10/25/19 07:22 Oxygen Delivery Method Room Air 10/25/19 07:22 Oxygen Flow Rate 0 10/25/19 07:22 Fraction of Inspired Oxygen (FIO2) 21 10/23/19 10:24 Pain Level 0 10/25/19 07:22 Intake & Output 10/24/19 10/24/19 10/25/19 11:59 23:59 11:59 Intake Total 470 / 2200 1730 / 2200 420 / 420 Output Total 400 / 1705 1305 / 1705 950 / 950 Balance 70 / 495 425 / 495 -530 / -530 Intake: IV Oral 450 / 2180 1730 / 2180 400 / 400 Output: Urine 400 / 1705 1305 / 1705 950 / 950 Other: Urine Color Light Analilia Pale Yellow Yellow Urine Appearance Clear Clear Clear Urine Odor Normal Normal Normal Stool Size Small Moderate Stool Characteristics Liquid Liquid Brown Brown Black Voiding Methods Urinal Urinal Toilet Laboratory Results WBC 7.51 k/cumm (4.4-10.8) 10/24/19 08:00 RBC 2.76 m/cumm (4.50-6.00) L 10/24/19 08:00 Hgb 8.2 g/dL (13.5-17.5) L 10/24/19 08:00 Hct 26.0 % (40.0-50.0) L 10/24/19 08:00 MCV 94.2 fL (80-95) 10/24/19 08:00 MCH 29.7 pg (27.0-33.0) 10/24/19 08:00 MCHC 31.5 g/dL (32.0-36.0) L 10/24/19 08:00 RDW 13.3 % (11.8-14.1) 10/24/19 08:00 Plt Count 274 x1000/uL (130-400) 10/24/19 08:00 MPV 8.8 fL (8.0-11.0) 10/24/19 08:00 Immature Gran % 0.9 % 10/24/19 08:00 Neutrophils % 92.2 10/24/19 08:00 Lymphocytes % 5.9 10/24/19 08:00 Monocytes % 0.9 10/24/19 08:00 Eosinophils % 0.0 10/24/19 08:00 Basophils % 0.1 10/24/19 08:00 Absolute Neutrophils 6.92 k/cumm (1.2-6.7) H 10/24/19 08:00 Absolute Lymphocytes 0.44 k/cumm (1.2-3.4) L 10/24/19 08:00 Absolute Monocytes 0.07 k/cumm (0.11-0.7) L 10/24/19 08:00 Absolute Eosinophils 0.00 k/cumm (0.0-0.7) 10/24/19 08:00 Absolute Basophils 0.01 k/cumm (0.0-0.2) 10/24/19 08:00 ESR 67 mm/hr (1-20) H 10/24/19 11:15 PT 10.7 sec (9.3-11.0) 10/24/19 08:00 INR 1.1 (0.9-1.1) 10/24/19 08:00 APTT 23.8 sec (21.0-31.4) 10/24/19 08:00 Sodium 136 mmol/L (136-145) 10/24/19 08:00 Potassium 4.7 mmol/L (3.5-5.1) D 10/24/19 08:00 Chloride 106 mmol/L (98-107) 10/24/19 08:00 Carbon Dioxide 22.8 mmol/L (21.0-32.0) 10/24/19 08:00 Anion Gap 7.2 mmol/L (3-11) 10/24/19 08:00 BUN 13 mg/dL (7-18) 10/24/19 08:00 Creatinine 1.13 mg/dL (0.70-1.30) 10/24/19 08:00 Estimated GFR/1.73 m2 >= 60.00 (mL/min/1.73m2) 10/24/19 08:00 Glucose 200 mg/dL (74-106) H D 10/24/19 08:00 Calcium 8.1 mg/dL (8.5-10.1) L 10/24/19 08:00 Total Bilirubin 0.3 mg/dL (0.2-1.0) 10/24/19 08:00 AST 21 U/L (15-37) 10/24/19 08:00 ALT 7 U/L (16-63) L 10/24/19 08:00 Alkaline Phosphatase 89 U/L (46-116) 10/24/19 08:00 Creatine Kinase 49 U/L (39-308) 10/24/19 08:00 C-Reactive Protein 0.66 mg/dL (0.0-0.3) H 10/24/19 08:00 Total Protein 5.7 g/dL (6.4-8.2) L 10/24/19 08:00 Albumin 1.8 g/dL (3.4-5.0) L 10/24/19 08:00
[2019-10-25] MEDS: cefTRIAXone 2 GM/50 ML BAG IVPB (13:29)
--- NOTE | 2019-10-25 20:05 | OT.INIE ---
Occupational Therapy Notes Inpatient Occupational Therapy SB1 Evaluation Inpatient Occupational Therapy SB1 Evaluation Date: 10/23/19 Referring Doctor:Tran Flores NP OT Orders: Non-Urgent Precautions: Fall, Standard, DNR/DNI PATIENT PROFILE/ADMITTING DIAGNOSIS: Pt is a 74-year-old male who presented to the ER on 09/21/19 via EMS with chief complaints of generalized weakness that started 2 days prior to admission that has resulted to a fall on his way to his bathroom in his apartment and a left abdominal discomfort. He states that he stayed on the floor and continued to attempt to get up for hours which made him feel more weak and tired. Patient is admitted with dx of pneumonia with MSSA bacteremia, acute rhabdomyolysis, increased opponent, back pain with question of vertebral osteomyelitis or discitis, neck pain, transaminitis, and ambulatory dysfunction. He was recently transitioned to SB1 rehabilitation status and consulted for Occupational Therapy for assessment of functional (I) in regards to his ADL/IADL routines. On 10/16/19 he was transitioned back to acute status due to Clostridium difficile enterocolitis. He was transitioned back to SB1 level rehabilitation status and is being seen for assessment of his ADLs at his current level of function. Pt will remain on SB1 at this time for antibiotic tx. He reports that he is supposed to return home on 11/11/19. Past Medical History- Medical History (Updated 09/22/19 @ 10:34 by Shi Alonzo MD) Erectile dysfunction (Inactive) Surgical History (Updated 09/22/19 @ 10:32 by Shi Alonzo MD) S/P left inguinal hernia repair (Acute) Social History/Home Situation: Pt lives alone in an apartment in the [facility] building. He states that his recently and he came to [place] which he speaks very highly of. He notes that his apartment is of good size. He drives at baseline and reports that he is totally (I). He has a niece and nephew which he stays in close contact with and they (A) as needed. He has a tub shower with no grab bars and is interested in having a shower seat for safety. He has an elevator from the basement to his floor where he does laundry. He is (I) with meal prep and cooking at baseline. Equipment owned/DME: Cane, FWW SUBJECTIVE: Pt was sitting in chair when OT arrived. He reports that he was recently transitioned back to Swing bed 1 rehabilitation program. He is discouraged that he is not able to move throughout his room. He is frustrated with himself and states that he wants his (I) back. He also reports that he refuses to go home with the walker. He reports that he wants to be able to move about his room and he is not motivated to get dressed because someone always has to get his clothes for him. OT and pt discuss picking clothes out the night before and placing them on a table by his bed so that he can get dressed when he wakes up. Pt was receptive to this but was not sure if this would work. He is going to attempt over the weekend. OBJECTIVE: General Observation: Pleasant but discouraged with his functional mobility at this time, able to answer questions appropriately, IV not connected in (R) UE Mental Status: A&Ox4 Pain: no c/o pain ROM: RUE AROM WFL L UE AROM WFL STRENGTH: RUE 5/5 throughout LUE 5/5 throughout SENSATION: intact (B) UE FUNCTIONAL MOBILITY/ADLS: Transfers with FWW Sit-Stand SBA Stand-sit SBA BATHING Pt denies DRESSING In seated position Dressing UE Able to (I) don and doff sweatshirt Dressing LE Able to (I) don and doff (B) socks with increased performance time and min vc provided throughout. Pt has adaptive equipment for this but is not currently utilizing this at this time. GROOMING Able to perform (I) teeth care in sitting position. TOILETING NT at todays session EATING Sitting in chair (I) with opening and closing containers, no issues with swallowing and good use of utensils as needed. OT was able to assess only end of routine. BALANCE: Static sitting Normal Dynamic Sitting Normal Static Standing Normal Dynamic Standing Good SPECIAL TESTS: Daily Activity Limitations Standardized Measure [facility] AM -PAC ?6 clicks? Daily Activity Inpatient Short Form: Raw score: 21 INFORMED CONSENT/EDUCATION: Pt instructed in purpose of OT Consult and plan of care. ASSESSMENT: Patient is a 74-year-old male referred to occupational therapy services with diagnosis of pneumonia with MSSA bacteremia, acute rhabdomyolysis, increased opponent, back pain with question of vertebral osteomyelitis or discitis, neck pain, transaminitis, and ambulatory dysfunction. Patient presents with clinical signs and symptoms consistent with dx, as demonstrated by the following impairment level findings: Decreased functional activity tolerance, decreased performance of ADLS in the standing routine, decreased prolonged performance of ADLS required to complete his ADLs/IADLs (I), LOB at times with functional mobility increasing pts fall risk. Impairments are contributing to the following functional limitations: Increased performance time in LE dressing, decreased standing tolerance at sink for grooming/bathing routines, decreased functional activity tolerance after prolonged activity throughout the day. AMPAC score 21 Patient is assessed as a Low 91925 complexity based on the following: History: See above Examination: See functional limitations as noted above Presentation: Evolving Decision Making: AMPAC score 21 GOALS 1. Transfers (I) with LRD 2. Dressing (I) in seated position 3. Bathing (I) 4. Toileting (I) on toilet 5. Eating (I) 6. Grooming routine standing at sink (I) PLAN OF CARE/TREATMENT PLAN: 1x/day, 5 days/ week x 1week Initiate Occupational Therapy Services for bathing, dressing, grooming, toileting, eating, transfer training. DISCHARGE RECOMMENDATIONS Based on todays assessment and pts functional (I) in tolerance to ADL/IADL routines, OT recommends that pt return home when medically cleared per MD. OT recommends that pt have a shower seat to increase his (I) and safety in his bathing routine due to decreased standing tolerance and functional activity tolerance. TREATMENT TIME/MINUTES/CODES 64445, 20 minutes (09:05) Jasmyn Grewal OTR/[facility]
[2019-10-26] MEDS: Levothyroxine 25 MCG TAB PO (06:21)
[2019-10-26 07:11] LABS: Abs Immature Grans 0.07 k/cumm (0.0-0.09); Absolute Basophil Count 0.03 k/cumm (0.0-0.2); Absolute Eosinophil Count 0.03 k/cumm (0.0-0.7); Absolute Lymphocyte Count 1.23 k/cumm (1.2-3.4); Absolute Monocyte Count 0.68 k/cumm (0.11-0.7); Absolute Neutrophil Count 4.31 k/cumm (1.2-6.7); Basophils % 0.5; Eosinophils % 0.5; HCT 22.1 % (40.0-50.0); HGB 7.2 g/dL (13.5-17.5); Immature Grans % 1.1 %; Lymphocytes % 19.4; Mean Corp. HGB Concentration 32.6 g/dL (32.0-36.0); Mean Corpuscular Hemoglobin 31.2 pg (27.0-33.0); Mean Corpuscular Volume 95.7 fL (80-95); Mean Platelet Volume 8.7 fL (8.0-11.0); Monocytes % 10.7; Neutrophils % 67.8; Platelet Count 364 x1000/uL (130-400); RBC 2.31 m/cumm (4.50-6.00); RBC Distribution Width 13.8 % (11.8-14.1); White Blood Cell Count 6.35 k/cumm (4.4-10.8)
[2019-10-26 07:26] LABS: ALT 9 U/L (16-63); AST 19 U/L (15-37); Albumin 1.8 g/dL (3.4-5.0); Alkaline Phosphatase 78 U/L (46-116); Anion Gap 5.9 mmol/L (3-11); BUN 16 mg/dL (7-18); Bilirubin, Total 0.3 mg/dL (0.2-1.0); C-Reactive Protein 0.24 mg/dL (0.0-0.3); CO2 25.1 mmol/L (21.0-32.0); Chloride 109 mmol/L (98-107); Glucose 107 mg/dL (74-106); Potassium 4.1 mmol/L (3.5-5.1); Sodium 140 mmol/L (136-145); Total Protein 4.9 g/dL (6.4-8.2)
[2019-10-26] MEDS: Magnesium Gluconate 500 MG TAB PO (07:40)
[2019-10-26] MEDS: Finasteride 5 MG TAB PO (07:41)
[2019-10-26] MEDS: Tamsulosin 0.4 MG CAPCR PO ×2 (07:41→20:30)
[2019-10-26] MEDS: Ferrous Sulfate 325 MG TAB PO ×2 (07:41→20:30)
[2019-10-26] MEDS: Pantoprazole 40 MG TABCR PO (07:41)
[2019-10-26] MEDS: Normal Saline Flush 10 ML SYR 20 ML IVP ×2 (07:42→20:31)
[2019-10-26 07:44] VITALS: BP 146/61; PULSE 84; RESP 18; TEMP 36.6; O2SAT 97
--- NOTE | 2019-10-26 08:12 | OT.INTREAT ---
Date of service: 10/26/19 Time of Service: 07:20 Occupational Therapy Notes Occupational Therapy Inpatient Treatment Note Date: 10/26/19 PRECAUTIONS: Fall, Standard,DNR/DNI SUBJECTIVE: Pt was sitting in his chair and reports that he had a great weekend. He feels that he is ready to get going today and is currently performing his exercises provided to him per PT. OBJECTIVE: PAIN:no c/o pain FUNCTIONAL MOBILITY Sit-stand: (S) Stand-sit: (S) DRESSING: Sitting in chair Upper Extremity: Already dressed with HEPATOLOGIST prior to OT arrival. Pt was able to (I) don and doff long sleeved shirt Lower Extremity: Pt was able to sit in chair and (I) don and doff (B) shoes. He did have these on prior to OT arrival but was agreeable to performance at todays session. ASSESSMENT/PLAN: Pt was able to demonstrate increased (I). He was demonstrating ideal (I) in his dressing routine with no LOB and was receptive to education and training provided to him. TREATMENT CODES/TIME: 17222s6, 10 minutes (07:20) Jasmyn Grewal, OTR/[facility]
[2019-10-26 08:23] LABS: ESR 44 mm/hr (1-20)
--- NOTE | 2019-10-26 09:03 | PT.INTREAT ---
Date of service: 10/26/19 PT Notes Visit Reasons: MSSA BACTEREMIA,CDIFF,ILEUS Inpatient Physical Therapy Treatment Note PRECAUTIONS: Fall. Standard. Contact precautions due to C-Diff. Activity as tolerated. SUBJECTIVE: Patient states that he feels hopeful that he can achieve his goal with how he has been doing with increased exercise intensity since Saturday. He stresses that he is up to the challenge of gradually progressing his level of activity in the coming days. He is agreeable to doing 40 reps with all his seated room exercises just in the afternoon so that he can focus his energy in the morning towards PT session. OBJECTIVE: General Observation: Patient appears hopeful today and encouraged by how much he has regained since recovering from his small bowel obstruction last week. Mental Status: Alert and oriented x4 Pain: None reported BED MOBILITY/TRANSFERS Sit-stand: Supervision with FWW Stand-sit: Supervision using BUE for support GAIT Assistive Device: Front wheel walker 520 feet with supervision. SBA for 780 feet using no assistive device. Weight bearing: Full weight bearing Deviation: Increased step height. Increase gwen. No LOB seen. No excessive postural sway seen. THERA EX/NEURO-ADE: With 4 pounds ankle weights to both sides patient was able to tolerate standing exercises consisting of hip flexion x20, hip abduction x20, hip extension x20, mini squats x20 and heel raises x20. Patient was also able to tolerate modified lateral shuffle 8 steps to the right and 8 step to the left for 5 sets, backing up 8 steps for 5 sets alternating with leading first with the right each time and then with a left the next, and 2 sets of sit to stand with arms across chest the first set for 12 reps in the second set for 15 reps. Deep breathing exercises incorporated in between each activity. ASSESSMENT: Patient demonstrated improved endurance, and improved steadiness with ambulation. He is transitioning to a stage of being able to ambulate independently with FWW outside of the room. He is appropriate to receive ther ex increase as tolerated. PLAN: 1x/day, 7 days/week x 1 week. Continue with physical Therapy intervention for strengthening, bed mobility, transfers, gait, stairs, balance training, use of assistive device. TREATMENT CODE/TIME: 73984 x 25 minutes, 9711 0 x 25 minutes, beginning at 9:03 AM.
[2019-10-26 11:24] VITALS: BP 135/56; PULSE 80; RESP 19; TEMP 36.4; O2SAT 97
[2019-10-26 12:06] LABS: Polychromasia Present
[2019-10-26] MEDS: Acetaminophen 325 MG TAB 650 MG PO (13:21)
[2019-10-26] MEDS: cefTRIAXone 2 GM/50 ML BAG IVPB (14:18)
[2019-10-26 15:15] VITALS: BP 128/62; PULSE 82; RESP 18; TEMP 35.8; O2SAT 96
--- NOTE | 2019-10-26 15:28 | CMPROGNOTE_ITS ---
- If Service Date Differs Date of service: 10/26/19 Time of Service: 15:28 Care Management Progress Note S/O: Dawit was sitting up in his chair when CM met with him. He reported that he was feeling good today, and that his rash was improving. Per report, Dawit had a reaction to medication over the weekend, and his IV abx were changed. His last dose remains 11/09/19. He discussed the option of a Life Line post discharge with CM, who provided a pamphlet previously. He reported that he is going to call [facility] and ask if they have a similar device. CM will continue to follow. A: Dawit is a 74 year old male admitted to SWB1 at [facility] on 10/22/19 for IV abx. P: Dawit will remain at [facility] for the remainder of his IV abx course. The anticipated end date of IV abx is 11/09/19. Dawit will return home with no additional services at that time, once he is medically cleared. CM will continue to follow and support discharge planning considerations.
[2019-10-26 19:15] VITALS: BP 125/58; PULSE 69; RESP 17; TEMP 35.9; O2SAT 95
[2019-10-27] MEDS: Levothyroxine 25 MCG TAB PO (05:32)
--- NOTE | 2019-10-27 07:52 | OT.INTREAT ---
Date of service: 10/27/19 Time of Service: 07:30 Occupational Therapy Notes Occupational Therapy Inpatient Treatment Note Date: 10/27/19 PRECAUTIONS: Fall, contact, DNR/DNI SUBJECTIVE: Pt was sitting in bed when OT arrived. He was receptive to OT session. OBJECTIVE: PAIN: no c/o pain FUNCTIONAL MOBILITY Rolling L/R: (I) Supine-sit: (I) Sit-stand: (S) Stand-sit: (S) Bed-Chair: (S) DRESSING: Sitting on side of the bed Upper Extremity: (I) with [facility] gown, (I) with donning shirt Lower Extremity: (I) donning pants and underwear GROOMING: Standing at sink with FWW pt was able to stand at sink with dynamic balance. TOILETING: Device: toilet Assist: (I) PLAN: Pt is doing great with his functional (I). He had no LOB and was able to perform his dressing and toileting routine with ideal technique. Pt was able to tolerate dynamic standing and sitting balance. OT recommends that pt return home when medically cleared per MD. TREATMENT CODES/TIME: 13803, 20 minutes (07:30) Jasmyn Grewal, OTR/L [facility]
[2019-10-27 08:05] VITALS: BP 142/68; PULSE 78; RESP 18; TEMP 36.2; O2SAT 93
[2019-10-27] MEDS: Ferrous Sulfate 325 MG TAB PO ×2 (08:19→20:23)
[2019-10-27] MEDS: Tamsulosin 0.4 MG CAPCR PO ×2 (08:20→20:23)
[2019-10-27] MEDS: Pantoprazole 40 MG TABCR PO (08:20)
[2019-10-27] MEDS: Normal Saline Flush 10 ML SYR 20 ML IVP ×2 (08:20→20:23)
[2019-10-27] MEDS: Finasteride 5 MG TAB PO (08:20)
[2019-10-27] MEDS: Magnesium Gluconate 500 MG TAB PO (09:43)
--- NOTE | 2019-10-27 11:54 | W.NUTRFU ---
Date of service: 10/27/19 Time of Service: 11:54 Nutritional Follow up NOTE: Dawit continues to meet nutrient needs. No new nutritional recommendations at this time. Time Spent in Nutritional Counseling and Treatment: 0
--- NOTE | 2019-10-27 12:51 | PT.INTREAT ---
Date of service: 10/27/19 Time of Service: 10:25 PT Notes Visit Reasons: MSSA BACTEREMIA,CDIFF,ILEUS Inpatient Physical Therapy Treatment Note [facility] Date: 10/27/19 PRECAUTIONS: Fall, Contact SUBJECTIVE: Dawit is in good spirits and is looking forward to his PT session. He reports that he has his mind made up that he is going to work hard and get stronger. OBJECTIVE: PAIN: Patient reports R knee discomfort at the beginning of the session, which he reports subsided after gait training. BED MOBILITY/TRANSFERS Sit-stand: I Stand-sit: I GAIT Assistive Device: No AD Weight bearing: Full Assist: S Distance: 3320' Deviation: Increased safety awareness, increased gwen THEREX: Patient completed a resisted LE strengthening and stabilization program. Exercises performed include hip flexion, hip abduction, heel raises, functional step-ups, and functional brb-[id number] with 4# ankle weights. Patient required several seated rests, demonstrating mild SOB with exercise completion. ASSESSMENT: Patient tolerate a significant progression in gait distance without use of assistive device. Patient demonstrates improved safety awareness, no LOB or SOB with gait training. He was also able to tolerate a progression in resisted ther ex. PLAN: Patient has been progressed to independent within his room with FWW. TREATMENT CODE/TIME: 60 minutes; 34297 x2, 90218 x2
[2019-10-27] MEDS: cefTRIAXone 2 GM/50 ML BAG IVPB (13:03)
[2019-10-28] MEDS: Levothyroxine 25 MCG TAB PO (05:55)
[2019-10-28 07:35] VITALS: BP 169/77; PULSE 76; RESP 22; TEMP 36.9; O2SAT 97
--- NOTE | 2019-10-28 08:05 | OT.INDS ---
Date of service: 10/28/19 Time of Service: 07:35 Occupational Therapy Notes Occupational Therapy Inpatient Discharge Summary Date: 10/28/19 Dates of Service: 10/23/19- 10/28/19 Referring Doctor:Tran Flores NP OT Orders: Non-Urgent Precautions: Fall, Standard, DNR/DNI PATIENT PROFILE/ADMITTING DIAGNOSIS: Pt is a 74-year-old male who presented to the ER on 09/21/19 via EMS with chief complaints of generalized weakness that started 2 days prior to admission that has resulted to a fall on his way to his bathroom in his apartment and a left abdominal discomfort. He states that he stayed on the floor and continued to attempt to get up for hours which made him feel more weak and tired. Patient is admitted with dx of pneumonia with MSSA bacteremia, acute rhabdomyolysis, increased opponent, back pain with question of vertebral osteomyelitis or discitis, neck pain, transaminitis, and ambulatory dysfunction. He was recently transitioned to SB1 rehabilitation status and consulted for Occupational Therapy for assessment of functional (I) in regards to his ADL/IADL routines. On 10/16/19 he was transitioned back to acute status due to Clostridium difficile enterocolitis. He was transitioned back to SB1 level rehabilitation status and is being seen for assessment of his ADLs at his current level of function. Pt will remain on SB1 at this time for antibiotic tx. He reports that he is supposed to return home on 11/11/19. Past Medical History- Medical History (Updated 09/22/19 @ 10:34 by Shi Alonzo MD) Erectile dysfunction (Inactive) Surgical History (Updated 09/22/19 @ 10:32 by Shi Alonzo MD) S/P left inguinal hernia repair (Acute) Social History/Home Situation: Pt lives alone in an apartment in the [facility] building. He states that his recently and he came to [place] which he speaks very highly of. He notes that his apartment is of good size. He drives at baseline and reports that he is totally (I). He has a niece and nephew which he stays in close contact with and they (A) as needed. He has a tub shower with no grab bars and is interested in having a shower seat for safety. He has an elevator from the basement to his floor where he does laundry. He is (I) with meal prep and cooking at baseline. Equipment owned/DME: Cane, FWW SUBJECTIVE: Pt was sitting in chair when OT arrived. He is happy with his progress so far and feels that he is back to his baseline level of function. OBJECTIVE: Pain: no c/o pain ROM: RUE AROM WFL L UE AROM WFL STRENGTH: RUE 5/5 throughout LUE 5/5 throughout SENSATION: intact (B) UE FUNCTIONAL MOBILITY/ADLS: Transfers with FWW Sit-Stand (I) Stand-sit (I) BATHING sranding at sink (I) with (B) UE/LE with ideal technique no LOB DRESSING In seated position Dressing UE Able to (I) don and doff sweatshirt Dressing LE Able to (I) don and doff (B) socks with increased performance time and min vc provided throughout. Pt has adaptive equipment for this but is not currently utilizing this at this time. GROOMING Able to perform (I) teeth care in sitting position. TOILETING on toilet (I) EATING Sitting in chair (I) with opening and closing containers, no issues with swallowing and good use of utensils as needed. OT was able to assess only end of routine. BALANCE: Static sitting Normal Dynamic Sitting Normal Static Standing Normal Dynamic Standing Good ASSESSMENT: Patient is a 74-year-old male referred to occupational therapy services with diagnosis of pneumonia with MSSA bacteremia, acute rhabdomyolysis, increased opponent, back pain with question of vertebral osteomyelitis or discitis, neck pain, transaminitis, and ambulatory dysfunction. Pt has been seen since 10/22/19 when he transitioned back into SB1 rehabilitation. Pt has made significant gains in terms of his functional (I) in ADL/IADL. He has met all his goals and is able to demonstrate his ADLs with ideal technique, no LOB and ideal functional activity tolerance. Based on pts current performance OT will plan to discharge pt from skilled OT services at this time. Plan of care was discussed with pt who is in agreement with this plan of care. GOALS 1. Transfers (I) with LRD- met 2. Dressing (I) in seated position- met 3. Bathing (I)- met 4. Toileting (I) on toilet- met 5. Eating (I)-met 6. Grooming routine standing at sink (I)- met PLAN OF CARE/TREATMENT PLAN: Discharge from skilled OT services at this time. DISCHARGE RECOMMENDATIONS Based on todays assessment and pts functional (I) in tolerance to ADL/IADL routines, OT recommends that pt return home when medically cleared per MD. OT recommends that pt have a shower seat to increase his (I) and safety in his bathing routine due to decreased standing tolerance and functional activity tolerance. TREATMENT TIME/MINUTES/CODES [id number], 25 minutes (07:35) Jasmyn Grewal OTR/[facility]
[2019-10-28] MEDS: Pantoprazole 40 MG TABCR PO (08:55)
[2019-10-28] MEDS: Ferrous Sulfate 325 MG TAB PO (08:55)
[2019-10-28] MEDS: Finasteride 5 MG TAB PO (08:55)
[2019-10-28] MEDS: Normal Saline Flush 10 ML SYR 20 ML IVP ×2 (08:56→20:07)
[2019-10-28] MEDS: Tamsulosin 0.4 MG CAPCR PO ×2 (08:56→20:07)
[2019-10-28] MEDS: Lidocaine 5% Patch 1 PATCH TP (08:56)
--- NOTE | 2019-10-28 10:09 | W.PM.PROGNOT ---
Date of Service Date of service: 10/28/19 Time of Service: 10:09 Assessment and Plan Assessment and plan (1) Anemia, blood loss: Status: Acute Assessment and plan: Hemoglobin continues to remain 7-8 with heme positive stools. He is receiving IV iron today, he has been on oral iron replacement. He has been asymptomatic. Case was discussed with general surgery who will plan on colonoscopy tomorrow. He continues to receive vancomycin for C. difficile which we will repeat testing today. No blood transfusion at this time we will continue to monitor for symptoms. No further labs at this time unless he becomes unstable. (2) Erythema multiforme: Status: Acute Assessment and plan: suspect from cefazolin. Resolved now off it. ID recommends Completing course with ceftriaxone which he is tolerating well. if his rash worsens or he develops allergy to ceftriaxone recommendations for daptomycin, she advises against cipro or vancomycin. (3) MSSA bacteremia: Status: Acute Assessment and plan: with lumbar discitis, ?osteomyelitis. developed a multiforme rash thought to be due to ancef and has been switched to ceftriaxone to complete his course. Needs antibiotics thru 11/09/2019. cefazolin added to his list of allergies. Transthoracic echo negative for endocarditis. surveillance labs on Mondays (4) Clostridium difficile enterocolitis: Status: Acute Assessment and plan: will continue oral vancomycin while on antibiotics, Continues to have heme positive loose stools. Will repeat C. difficile testing. (5) Essential hypertension: Status: Acute Assessment and plan: stable, continue to monitor and adjust medications as needed. (6) Lumbar discitis: Status: Acute Assessment and plan: stable, continue pain management (7) Discharge planning issues: Status: Acute Assessment and plan: will need to stay until 11/08 to complete course of antibiotics. anticipate discharge to home with no services once completed. Subjective Subjective Patient reports: tolerating liquids well, tolerating a regular diet, diarrhea and afebrile Interval history since last seen: Patient has remained hemodynamically stable and is tolerating a regular diet. He continues to have loose stools which have not worsened. They continue to be positive for occult blood and his hemoglobin did drop this Saturday from 8.2-7.2. He has not had any shortness of breath chest pain dizziness or hypotension. Exam Const General: cooperative, healthy appearing, comfortable, no acute distress and well developed Nutritional Appearance: average body habitus Orientation: alert, awake and oriented x3 HENMT Head: normocephalic and abrasion left frontal Face and sinus: normal facial exam Mouth: oral mucosae normal Resp Effort & Inspection: normal respiratory effort Auscultation: clear to auscultation bilaterally Cardio Rate: regular rate Rhythm: regular rhythm GI Inspection: normal to inspection Palpation: soft Auscultation: normal bowel sounds Skin Lesions: lesion noted (scab left forehead) Rashes: rashes noted (multiforme rash on abdomen and thighs, ) Neuro General: patient alert, patient awake and patient oriented x3 Extrem General: normal to inspection, full ROM and no pedal edema Objective Objective Clinical Data: Vital Signs Temperature 36.9 C 10/28/19 07:35 Temperature Source Tympanic 10/28/19 07:35 Pulse 76 10/28/19 07:35 Pulse Rhythm Regular 10/27/19 22:24 Respiratory Rate 22 10/28/19 07:35 Respiratory Effort Non-Labored 10/27/19 22:24 Respiratory Depth Normal 10/27/19 22:24 Respiratory Pattern Normal 10/27/19 22:24 Blood Pressure 169/77 H 10/28/19 07:35 Pulse Oximetry 97 10/28/19 07:35 Oxygen Delivery Method Room Air 10/28/19 07:35 Oxygen Flow Rate 0 10/28/19 07:35 Fraction of Inspired Oxygen (FIO2) 21 10/28/19 08:31 Pain Level 0 10/28/19 07:35 Comment 10/27/19 15:44 Intake & Output 10/27/19 10/27/19 10/28/19 11:59 23:59 11:59 Intake Total 250 / 910 660 / 910 450 / 450 Output Total 1025 / 1800 775 / 1800 925 / 925 Balance -775 / -890 -115 / -890 -475 / -475 Intake: Oral 250 / 910 660 / 910 450 / 450 Output: Urine 1025 / 1800 775 / 1800 925 / 925 Other: Urine Color Yellow Yellow Yellow Urine Appearance Clear Clear Clear Urine Odor Normal Normal Normal Stool Occult Blood Positive Stool Size Small Small Moderate Stool Characteristics Soft Soft Soft Brown Brown Formed Voiding Methods Toilet Urinal Toilet Laboratory Results WBC 6.35 k/cumm (4.4-10.8) 10/26/19 06:30 RBC 2.31 m/cumm (4.50-6.00) L 10/26/19 06:30 Hgb 7.2 g/dL (13.5-17.5) L 10/26/19 06:30 Hct 22.1 % (40.0-50.0) L 10/26/19 06:30 MCV 95.7 fL (80-95) H 10/26/19 06:30 MCH 31.2 pg (27.0-33.0) 10/26/19 06:30 MCHC 32.6 g/dL (32.0-36.0) 10/26/19 06:30 RDW 13.8 % (11.8-14.1) 10/26/19 06:30 Plt Count 364 x1000/uL (130-400) 10/26/19 06:30 MPV 8.7 fL (8.0-11.0) 10/26/19 06:30 Immature Gran % 1.1 % 10/26/19 06:30 Neutrophils % 67.8 10/26/19 06:30 Lymphocytes % 19.4 10/26/19 06:30 Monocytes % 10.7 10/26/19 06:30 Eosinophils % 0.5 10/26/19 06:30 Basophils % 0.5 10/26/19 06:30 Absolute Neutrophils 4.31 k/cumm (1.2-6.7) 10/26/19 06:30 Absolute Lymphocytes 1.23 k/cumm (1.2-3.4) 10/26/19 06:30 Absolute Monocytes 0.68 k/cumm (0.11-0.7) 10/26/19 06:30 Absolute Eosinophils 0.03 k/cumm (0.0-0.7) 10/26/19 06:30 Absolute Basophils 0.03 k/cumm (0.0-0.2) 10/26/19 06:30 Polychromasia Present 10/26/19 06:30 ESR 44 mm/hr (1-20) H 10/26/19 06:30 PT 10.7 sec (9.3-11.0) 10/24/19 08:00 INR 1.1 (0.9-1.1) 10/24/19 08:00 APTT 23.8 sec (21.0-31.4) 10/24/19 08:00 Sodium 140 mmol/L (136-145) 10/26/19 06:30 Potassium 4.1 mmol/L (3.5-5.1) 10/26/19 06:30 Chloride 109 mmol/L (98-107) H 10/26/19 06:30 Carbon Dioxide 25.1 mmol/L (21.0-32.0) 10/26/19 06:30 Anion Gap 5.9 mmol/L (3-11) 10/26/19 06:30 BUN 16 mg/dL (7-18) 10/26/19 06:30 Creatinine 1.10 mg/dL (0.70-1.30) 10/26/19 06:30 Estimated GFR/1.73 m2 >= 60.00 (mL/min/1.73m2) 10/26/19 06:30 Glucose 107 mg/dL (74-106) H D 10/26/19 06:30 Calcium 8.0 mg/dL (8.5-10.1) L 10/26/19 06:30 Total Bilirubin 0.3 mg/dL (0.2-1.0) 10/26/19 06:30 AST 19 U/L (15-37) 10/26/19 06:30 ALT 9 U/L (16-63) L 10/26/19 06:30 Alkaline Phosphatase 78 U/L (46-116) 10/26/19 06:30 Creatine Kinase 49 U/L (39-308) 10/24/19 08:00 C-Reactive Protein 0.24 mg/dL (0.0-0.3) 10/26/19 06:30 Total Protein 4.9 g/dL (6.4-8.2) L 10/26/19 06:30 Albumin 1.8 g/dL (3.4-5.0) L 10/26/19 06:30
[2019-10-28] MEDS: IRON SUCROSE COMPLEX 300 MG in Normal Saline 250 ML 167 MG IVPB (10:52)
[2019-10-28] MEDS: Magnesium Gluconate 500 MG TAB PO (10:52)
--- NOTE | 2019-10-28 11:01 | PTTR_ITS ---
Date of service: 10/28/19 Time of Service: 11:01 PT Notes Visit Reasons: MSSA BACTEREMIA,CDIFF,ILEUS Inpatient Physical Therapy Treatment Note [facility] Date: 10/28/2019 PRECAUTIONS: Fall, Contact SUBJECTIVE: Dawit is pleasant and agreeable to participating in PT. He is excited about completing the PT session outside today. He also reports that he is feeling a little nervous about his colonoscopy that is scheduled for tomorrow. OBJECTIVE: PAIN: No c/o pain BED MOBILITY/TRANSFERS: Patient is independent with all transfers and bed mobility within his room, at this time. GAIT Assistive Device: 4WW Weight bearing: Full Assist: SBA Distance: 5000'+ Patient utilized 4WW support and SBA to navigate program a variety of surfaces, both indoors and outdoors. Surfaces include: Linoleum, carpet, pavement, cement, dirt, and grass. Most surfaces were uneven. Patient negotiated each surface demonstrating good safety awareness, appropriate pacing, and with appropriate use of 4WW. ASSESSMENT: Patient tolerated session well without complaint of pain or fatigue. He was able to demonstrate appropriate safety awareness, use of 4WW, and appropriate pacing, I will negotiating a variety of indoor/outdoor and even/unev en surfaces. Patient would benefit from continued gait training with 4WW and over uneven outdoor surfaces for improvement in balance and progression toward independence. PLAN: Continue with PT's POC TREATMENT CODE/TIME: 30 minutes; 02751 x2
--- NOTE | 2019-10-28 11:10 | W.PM.PROGNOT ---
Date of Service Date of service: 10/28/19 Time of Service: 11:10 Subjective Subjective Interval history since last seen: pt hgb has been trending down since 10/14. He developed a bowel obstruction and than his hgb dropped from 12's into 9's adn has slowly been trending down. no N/V. He did have some coffee grounds while he had an NGT in place. He is on PPI. His hgb is now down into the 7's. He feldman shad a couple of rounds of IV iron. But this does not seem to be improving. his stools are heme+ but not black or grossly bloody. appetite is good and wt is stable. albumin is low. He has been having pretty signif diarrhea since he developed C diff, that is not getting better. We did repeat the C diff and it was neg. Most likely the diarrhea is from paucity of normal corinna. From his [facility] receords he has never had a CE. egd and ce w/ bx in am. bowel prep tonight. pt is on abx still. He is on probiotics as well. Informed consent is obtained for the procedural (explained in simple layman's terms that the pt and/or family could understand) explaining risks vs benefits and alternatives to the procedure and consequences if we do not do the procedure and need/rational for the procedure. Risks include but are not limited to: bleeding, infection, perforation of esophagus, stomach, colon, small intestines, bronchus or trachea, or PTX. This would necessitate emergency surgery to repair the damage w/ possible ostomy; and other associated complications w/ the required surgery. Also complications of anesthesia including aspiration, PR/CVA/. Objective Objective Clinical Data: Vital Signs Temperature 36.9 C 10/28/19 07:35 Temperature Source Tympanic 10/28/19 07:35 Pulse 76 10/28/19 07:35 Pulse Rhythm Regular 10/27/19 22:24 Respiratory Rate 22 10/28/19 07:35 Respiratory Effort Non-Labored 10/27/19 22:24 Respiratory Depth Normal 10/27/19 22:24 Respiratory Pattern Normal 10/27/19 22:24 Blood Pressure 169/77 H 10/28/19 07:35 Pulse Oximetry 97 10/28/19 07:35 Oxygen Delivery Method Room Air 10/28/19 07:35 Oxygen Flow Rate 0 10/28/19 07:35 Fraction of Inspired Oxygen (FIO2) 21 10/28/19 08:31 Pain Level 0 10/28/19 07:35 Comment 10/27/19 15:44 Intake & Output 10/27/19 10/27/19 10/28/19 11:59 23:59 11:59 Intake Total 250 / 910 660 / 910 930 / 930 Output Total 1025 / 1800 775 / 1800 925 / 925 Balance -775 / -890 -115 / -890 Intake: Oral 250 / 910 660 / 910 930 / 930 Output: Urine 1025 / 1800 775 / 1800 925 / 925 Other: Urine Color Yellow Yellow Yellow Urine Appearance Clear Clear Clear Urine Odor Normal Normal Normal Stool Occult Blood Positive Stool Size Small Small Moderate Stool Characteristics Soft Soft Soft Brown Brown Formed Voiding Methods Toilet Urinal Toilet Laboratory Results WBC 6.35 k/cumm (4.4-10.8) 10/26/19 06:30 RBC 2.31 m/cumm (4.50-6.00) L 10/26/19 06:30 Hgb 7.2 g/dL (13.5-17.5) L 10/26/19 06:30 Hct 22.1 % (40.0-50.0) L 10/26/19 06:30 MCV 95.7 fL (80-95) H 10/26/19 06:30 MCH 31.2 pg (27.0-33.0) 10/26/19 06:30 MCHC 32.6 g/dL (32.0-36.0) 10/26/19 06:30 RDW 13.8 % (11.8-14.1) 10/26/19 06:30 Plt Count 364 x1000/uL (130-400) 10/26/19 06:30 MPV 8.7 fL (8.0-11.0) 10/26/19 06:30 Immature Gran % 1.1 % 10/26/19 06:30 Neutrophils % 67.8 10/26/19 06:30 Lymphocytes % 19.4 10/26/19 06:30 Monocytes % 10.7 10/26/19 06:30 Eosinophils % 0.5 10/26/19 06:30 Basophils % 0.5 10/26/19 06:30 Absolute Neutrophils 4.31 k/cumm (1.2-6.7) 10/26/19 06:30 Absolute Lymphocytes 1.23 k/cumm (1.2-3.4) 10/26/19 06:30 Absolute Monocytes 0.68 k/cumm (0.11-0.7) 10/26/19 06:30 Absolute Eosinophils 0.03 k/cumm (0.0-0.7) 10/26/19 06:30 Absolute Basophils 0.03 k/cumm (0.0-0.2) 10/26/19 06:30 Polychromasia Present 10/26/19 06:30 ESR 44 mm/hr (1-20) H 10/26/19 06:30 PT 10.7 sec (9.3-11.0) 10/24/19 08:00 INR 1.1 (0.9-1.1) 10/24/19 08:00 APTT 23.8 sec (21.0-31.4) 10/24/19 08:00 Sodium 140 mmol/L (136-145) 10/26/19 06:30 Potassium 4.1 mmol/L (3.5-5.1) 10/26/19 06:30 Chloride 109 mmol/L (98-107) H 10/26/19 06:30 Carbon Dioxide 25.1 mmol/L (21.0-32.0) 10/26/19 06:30 Anion Gap 5.9 mmol/L (3-11) 10/26/19 06:30 BUN 16 mg/dL (7-18) 10/26/19 06:30 Creatinine 1.10 mg/dL (0.70-1.30) 10/26/19 06:30 Estimated GFR/1.73 m2 >= 60.00 (mL/min/1.73m2) 10/26/19 06:30 Glucose 107 mg/dL (74-106) H D 10/26/19 06:30 Calcium 8.0 mg/dL (8.5-10.1) L 10/26/19 06:30 Total Bilirubin 0.3 mg/dL (0.2-1.0) 10/26/19 06:30 AST 19 U/L (15-37) 10/26/19 06:30 ALT 9 U/L (16-63) L 10/26/19 06:30 Alkaline Phosphatase 78 U/L (46-116) 10/26/19 06:30 Creatine Kinase 49 U/L (39-308) 10/24/19 08:00 C-Reactive Protein 0.24 mg/dL (0.0-0.3) 10/26/19 06:30 Total Protein 4.9 g/dL (6.4-8.2) L 10/26/19 06:30 Albumin 1.8 g/dL (3.4-5.0) L 10/26/19 06:30
[2019-10-28 11:15] VITALS: BP 143/70; PULSE 71; RESP 20; TEMP 36.5; O2SAT 93
[2019-10-28] MEDS: Bisacodyl 5 MG TABEC 10 MG PO ×3 (11:32→21:38)
[2019-10-28] MEDS: Normal Saline Flush 10 ML SYR IVP ×3 (12:40→15:01)
[2019-10-28] MEDS: Normal Saline 500 ML 30 ML IVPB (13:50)
[2019-10-28] MEDS: cefTRIAXone 2 GM/50 ML BAG IVPB (13:51)
[2019-10-28] MEDS: Polyethylene Glycol 3350 238 GM BTL PO (14:20)
[2019-10-28] MEDS: Hamamelis Leaf/Glycerin 100 EACH BOX PR (14:27)
[2019-10-29] MEDS: Levothyroxine 25 MCG TAB PO (06:54)
[2019-10-29 07:24] VITALS: BP 150/66; PULSE 76; RESP 17; TEMP 36.6; O2SAT 97
--- NOTE | 2019-10-29 10:59 | W.PM.ENDDOP ---
Date of service: 10/29/19 Time of Service: 11:00 Endoscopy Report DATE OF PROCEDURE: 10/29/19 PRE-OP DIAGNOSIS: anemia/hx of gastric ulcers/persistent diarrhea POST-OP DIAGNOSIS: other (fungal esophagitis/hiatal hernia and diverticula) PROCEDURE: egd w/ bx and ce w/ bx SURGEON: Abena Mckeon ANESTHESIA: MAC ESTIMATED BLOOD LOSS: 1 PATHOLOGY: other COMPLICATIONS: None DISPOSITION: PACU PREP: Miralax/Dulcolax COLONOSCOPY RETRACTION TIME: 10 mins PROCEDURE DESCRIPTION: After informed consent was obtained the patient was take to the procedure room and placed in a supine position. Monitors were applied and a time out was done. The patients name, date of , procedure type, allergies to medications and metal in their body was reviewed. A bite block was placed and the patient was sedated. Once sedated and comfortable the gastroscope was advanced through the oropharynx which was grossly normal into the esophagus. The proximal and mid-esophagus were []. In the distal esophagus there was [] noted. The scope was advanced into the stomach and through the pylorus into the 3rd portion of the duodenum. The duodenum was noted to be []. Biopsies were done []. The scope was retracted back into the stomach and biopsies were done to rule out H. pylori. There were [] ulcers. The scope was retroflexed. The cardia and fundus were noted to be normal. There [] a hiatal hernia noted. The scope was retracted back into the esophagus and biopsies were done of the GE junction to rule out Delgado's. The Z line was regular. The GE junction was at [] cm. The scope was removed and the patient was woken up and taken back to [facility] in stable condition.
[2019-10-29 11:03] VITALS: BP 149/65; PULSE 73; RESP 18; TEMP 36.4; O2SAT 98
[2019-10-29 11:37] VITALS: BP 167/61; PULSE 60; RESP 20; TEMP 36.3; O2SAT 99
[2019-10-29] MEDS: Tamsulosin 0.4 MG CAPCR PO ×2 (11:41→19:37)
[2019-10-29] MEDS: Finasteride 5 MG TAB PO (11:41)
[2019-10-29] MEDS: Magnesium Gluconate 500 MG TAB PO (11:41)
[2019-10-29] MEDS: Normal Saline Flush 10 ML SYR 20 ML IVP ×2 (11:42→19:38)
[2019-10-29] MEDS: Lidocaine 5% Patch 1 PATCH TP (11:42)
[2019-10-29] MEDS: FLUCONAZOLE 200 MG/100 ML BAG 100 MG IVPB (13:05)
[2019-10-29] MEDS: cefTRIAXone 2 GM/50 ML BAG IVPB (14:25)
[2019-10-29] MEDS: IRON SUCROSE COMPLEX 200 MG in Normal Saline 100 ML 400 MG IVPB (15:00)
[2019-10-29] MEDS: Normal Saline Flush 10 ML SYR IVP (15:00)
--- NOTE | 2019-10-29 15:56 | PT.INPN ---
Date of service: 10/29/19 Time of Service: 15:56 PT Notes Visit Reasons: MSSA BACTEREMIA,CDIFF,ILEUS Inpatient Physical Therapy Progress Note Date: 10/29/2019 Dates of Service: through 10/29/2019 PRECAUTIONS: Fall. C.Difficile precautions lifted up as of today. Activity as tolerated. SUBJECTIVE: When asked right before lunchtime when patient came back from his colonoscopy procedure how he was, My feet feels funny. He did agree to be seen later this afternoon so he could rest. OBJECTIVE: 1 unit of PRBC being hooked up by nurse to patient when this PT came in. Lidocaine patch to neck on. Bilateral TEDs on. PAIN: None reported. BED MOBILITY/TRANSFERS Sit-stand: Modified independent using B UE for support, requires FWW Stand-sit: Modified independent using B UE for support Bed-Chair: Modified independent using B UE for support Chair-bed: Modified independent using B UE for support GAIT Assistive Device: No AD and with FWW Weight bearing: FWB Assist: Supervision Distance: Without AD 1,300 feet. WIth FWW 520. Deviation: Chayo minimally affected despite patient complaining of some discomfort in his rear end. THEREX: Patient was instructed to perform room exercises with reduced number of repetitions to 20 later this afternoon so he can rest and do more tomorrow. Assessment: Dawit is upgraded back to modified independent inside his room using his front-wheeled walker as of Saturday this week. He is determined to reach his personal goal of discharging from this hospital at independent level with all ambulation tasks without an assistive device. Excessive posterior sway has resolved, no LOB has been seen during all ambulation performance with PT and [employer] this week, chayo has significantly improved, and patient's confidence level has increased. Signs of some confusion which limited him since diagnosis of C. Difficile infection have also resolved which has contributed to an improved safety awareness. Goals are upgraded below to facilitate patient's achievement of his personal goal. Patient continues to present with clinical signs and symptoms consistent with current/admitting diagnoses that have resulted to mobility limitations, gait instability, generalized weakness, and impairment of motor control as demonstrated by the following impairment level findings: 1. Decreased strength to B UE and B LE major muscle groups 2. Impaired dynamic standing balance 3. Impaired activity tolerance Impairments are continuing to contributing to the following functional limitations: 1. Inability to independently ambulate without assistive device and physical assistance 2. Increase completion time for mobility ADL performance 3. Increased fall risk Patient is assessed as a 38127 moderate complexity based on the following: History: 74-year-old male waiting for impairment level findings, functional limitations, and medical history as indicated above Examination: Demonstrable impairment in strength, balance, and range of motion with underlying impairments and functional limitations as documented above Presentation: Evolving Decision Makin moderate complexity Goals: Goals X1 week 1. Sit-Stand independent MET 2. Stand-Sit independent MET 3. Bed-Chair independent MET 4. Chair-Bed independent MET 5. Independent gait on level surface with use of least restrictive device for at least 800 feet without report of pain nor dyspnea NOT MET 6. Independent stair negotiation while holding onto bilateral rails for at least 10 steps without report of pain nor dyspnea NOT MET 7. Independent with home exercise program MET 8. Good static and dynamic standing balance/tolerance MET. UPGRADED TO: Normal static and dynamic standing balance/tolerance 9. NEW GOAL: Patient will demonstrate independent ambulation over paved, gravel, grass, dirt paths without an assistive device Plan of Care/Treatment Plan: 1/day, 7 days/week x 1 week. Continue [facility] Physical Therapy intervention for strengthening, bed mobility, transfers, gait, stairs, and balance training to achieve goals. DISCHARGE RECOMMENDATIONS: Outpatient PT for continued progression with advance level balance exercises as needed. TREATMENT CODE/TIME: 90621 x 25 minutes beginning at 15:56 PM. Thank you very much for this referral. Ariane Poe PT, DPT, CLT [facility] Inpatient PT at [place], [place]
[2019-10-29 16:11] VITALS: BP 177/73; PULSE 74; RESP 18; TEMP 36.5; O2SAT 98
--- NOTE | 2019-10-29 16:39 | PDOC.CMACT ---
- If Service Date Differs Date of service: 10/29/19 Time of Service: 16:39 Care Management Activity Note Dawit remains on SWB level one for IV abx . He enjoys taking walks in the [place], and working with PT, as his goals are to gain strength prior to returning home in order to be more independent. He has a 'fill in the blank' book to work on, as well as his own computer use. He enjoys chatting about sports, particularly [employer]. CM will continue to follow.
[2019-10-30] MEDS: Acetaminophen 325 MG TAB 650 MG PO (03:08)
[2019-10-30] MEDS: Levothyroxine 25 MCG TAB PO (05:58)
[2019-10-30 07:15] VITALS: BP 165/64; PULSE 80; RESP 18; TEMP 36.6; O2SAT 98
[2019-10-30] MEDS: Magnesium Gluconate 500 MG TAB PO (09:12)
[2019-10-30] MEDS: Normal Saline Flush 10 ML SYR 20 ML IVP ×2 (09:12→19:54)
[2019-10-30] MEDS: Pantoprazole 40 MG TABCR PO (09:12)
[2019-10-30] MEDS: Finasteride 5 MG TAB PO (09:12)
[2019-10-30] MEDS: Tamsulosin 0.4 MG CAPCR PO ×2 (09:12→19:53)
--- NOTE | 2019-10-30 09:40 | PT.INTREAT ---
Date of service: 10/30/19 Time of Service: 08:10 PT Notes Visit Reasons: MSSA BACTEREMIA,CDIFF,ILEUS Inpatient Physical Therapy Treatment Note [facility] Date: 10/30/19 PRECAUTIONS:standard, fall SUBJECTIVE: Willy states that he's feeling well today. He has been doing his strengthening exercises independently each afternoon, working with 2# dumbbells for seated exercises. OBJECTIVE: PAIN: denies BED MOBILITY/TRANSFERS Sit-stand: independent Stand-sit: independent Bed-Chair: independent with FWW Chair-bed: independent with FWW GAIT Assistive Device: FWW Weight bearing: full Assist: independent in room; supervision in hallway for community distances Distance: 300'x1; 500'x1 Deviation: mild path deviation Neuromuscular Re-education: Today's session focused on balance retraining with static and dynamic balance retraining activities as noted on flowsheet. Patient requires CGA during dynamic balance activities, with need for intermittent reliance on UE support to FWW. SPECIAL TESTS: Guerrero Balance test shows score of 40/56, indicating increased fall risk. Full test results can be found in scanned documents. ASSESSMENT: Progressed balance retraining program today to address gait and balance impairments. Will have patient continue with independent strengthening efforts between sessions, and focus on progressing balance activities during one on one PT sessions. PLAN: Continue 1x/day for balance retraining and fall prevention. TREATMENT CODE/TIME: 55 minutes (8:10-9:05); [id number] Cora Brooks, PT, DPT [facility]
--- NOTE | 2019-10-30 11:15 | CHAPLAIN ---
Dawit was up in a chair working on a laptop when I visited. He said he is feeling good today. November 08 is his anticipated discharge date and he is hoping to be strong enough to go home on his own. He said he is working hard with PT with that goal in mind. Dawit previously asked for daily devotional and said he's enjoyed that reading that.
--- NOTE | 2019-10-30 12:26 | PDOC.CMPRO ---
- If Service Date Differs Date of service: 10/30/19 Time of Service: 12:26 Care Management Progress Note CM was consulted to coordinate a 4WW for Dawit, as recommended by PT. MARTINA sent a referral to [facility], after speaking with Olivia, who stated that she can order a 4WW. MARTINA will follow up on the referral on Saturday.
[2019-10-30] MEDS: FLUCONAZOLE 200 MG/100 ML BAG 100 MG IVPB (14:21)
[2019-10-30] MEDS: Normal Saline 500 ML 30 ML IVPB (14:21)
[2019-10-30] MEDS: cefTRIAXone 2 GM/50 ML BAG IVPB (14:21)
[2019-10-30 15:40] VITALS: BP 158/69; PULSE 77; RESP 19; TEMP 36.9; O2SAT 98
[2019-10-31] MEDS: Levothyroxine 25 MCG TAB PO (05:08)
[2019-10-31 07:30] VITALS: BP 148/64; PULSE 70; RESP 16; TEMP 37.5; O2SAT 97
[2019-10-31] MEDS: Pantoprazole 40 MG TABCR PO (07:45)
[2019-10-31] MEDS: Finasteride 5 MG TAB PO (07:45)
[2019-10-31] MEDS: Normal Saline Flush 10 ML SYR 20 ML IVP ×2 (07:45→20:05)
[2019-10-31] MEDS: Tamsulosin 0.4 MG CAPCR PO ×2 (07:45→20:04)
[2019-10-31] MEDS: Protein Nutritional Supplement 16 GM 1 OUNCE PACKET PO ×2 (07:45→20:04)
[2019-10-31] MEDS: Magnesium Gluconate 500 MG TAB PO (10:22)
--- NOTE | 2019-10-31 11:36 | PTTR_ITS ---
Date of service: 10/31/19 Time of Service: 10:30 PT Notes Visit Reasons: MSSA BACTEREMIA,CDIFF,ILEUS Inpatient Physical Therapy Treatment Note [facility] Date: 10/31/19 PRECAUTIONS:standard, fall SUBJECTIVE: Willy states that he's been walking in the halls with nursing this morning. He tries to walk 4x/day. He states that he's feeling stronger, and that the balance activities he performed yesterday made him feel more confident about his balance. OBJECTIVE: PAIN: denies BED MOBILITY/TRANSFERS Sit-stand: independent Stand-sit: independent Bed-Chair: independent with FWW Chair-bed: independent with FWW GAIT Assistive Device: FWW Weight bearing: full Assist: independent in room; supervision in hallway for community distances Distance: 500'x3 Deviation: mild path deviation Neuromuscular Re-education (00508u1): Patient was instructed in balance retraining with static and dynamic balance retraining activities as noted on flowsheet. Progressed to include dynamic surfaces with Airex pads, where he requires UE support to rail and CGA. Tolerated activities with single leg standing, visual occlusion, and small MAXIMILIANO on Airex pads. Also added trunk rotation and trunk extension activities in small MAXIMILIANO standing to facilitate improved weight shifting. Therapeutic Exercises (70032m3): Progressed UE and LE strengthening activities as noted in flowsheet. Patient was additionally instructed in cardiovascular retraining activities for improved activity tolerance. He requires max A for set up of NuStep, with cues and modification for set up. He completes a total of 5 minutes of stepping, with 3 minutes of direct one-on-one for set up and 2 minutes of supervised, non-billable stepping. He also completed intervals of 500' of ambulation with increased pace, requiring seated rest period after 2 of these reps due to mild SOLORZANO. Progressed step ups to completion on 6 step with good tolerance, although heavy reliance on UE support to rails. ASSESSMENT: Good tolerance to treatment progression. Will continue focusing on balance retraining and improved gait speed and mechanics for improved safety and fall risk reduction as patient transitions back to the community. PLAN: Continue 1x/day for balance retraining and fall prevention. TREATMENT CODE/TIME: 60 minutes total, with 58 minutes of billable time (10:30- 11:30); [id number], [id number] Cora Brooks, PT, DPT [facility]
[2019-10-31] MEDS: cefTRIAXone 2 GM/50 ML BAG IVPB (13:29)
[2019-10-31] MEDS: FLUCONAZOLE 200 MG/100 ML BAG 100 MG IVPB (14:20)
[2019-10-31] MEDS: Normal Saline Flush 10 ML SYR IVP (14:20)
[2019-11-01] MEDS: Levothyroxine 25 MCG TAB PO (04:42)
[2019-11-01 07:31] VITALS: BP 162/76; PULSE 71; RESP 16; TEMP 37.4; O2SAT 96
[2019-11-01] MEDS: Pantoprazole 40 MG TABCR PO (08:01)
[2019-11-01] MEDS: Tamsulosin 0.4 MG CAPCR PO ×2 (08:01→19:52)
[2019-11-01] MEDS: Protein Nutritional Supplement 16 GM 1 OUNCE PACKET PO ×2 (08:01→19:52)
[2019-11-01] MEDS: Finasteride 5 MG TAB PO (08:01)
[2019-11-01] MEDS: Normal Saline Flush 10 ML SYR 20 ML IVP ×2 (08:02→19:52)
[2019-11-01 08:39] LABS: Abs Immature Grans 0.02 k/cumm (0.0-0.09); Absolute Basophil Count 0.04 k/cumm (0.0-0.2); Absolute Lymphocyte Count 0.94 k/cumm (1.2-3.4); Absolute Monocyte Count 0.52 k/cumm (0.11-0.7); Absolute Neutrophil Count 4.01 k/cumm (1.2-6.7); Basophils % 0.7; Eosinophils % 1.8; HGB 7.9 g/dL (13.5-17.5); Immature Grans % 0.4 %; Lymphocytes % 16.7; Mean Corp. HGB Concentration 32.9 g/dL (32.0-36.0); Mean Corpuscular Hemoglobin 31.6 pg (27.0-33.0); Mean Platelet Volume 8.5 fL (8.0-11.0); Monocytes % 9.2; Neutrophils % 71.2; Platelet Count 361 x1000/uL (130-400); RBC Distribution Width 13.6 % (11.8-14.1); White Blood Cell Count 5.63 k/cumm (4.4-10.8)
[2019-11-01] MEDS: Magnesium Gluconate 500 MG TAB PO (09:11)
[2019-11-01 09:22] LABS: Anion Gap 6.5 mmol/L (3-11); BUN 14 mg/dL (7-18); C-Reactive Protein 0.41 mg/dL (0.0-0.3); CO2 26.5 mmol/L (21.0-32.0); CREATININE 1.11 mg/dL (0.70-1.30); Calcium 8.7 mg/dL (8.5-10.1); Chloride 109 mmol/L (98-107); Glucose 92 mg/dL (74-106); Magnesium 1.6 mg/dL (1.8-2.4); Potassium 3.9 mmol/L (3.5-5.1); Sodium 142 mmol/L (136-145)
[2019-11-01 09:39] LABS: Procalcitonin < 0.1 ng/mL
[2019-11-01] MEDS: MAGNESIUM SULFATE 4 GM/100 ML BAG IVPB (10:26)
[2019-11-01] MEDS: Acetaminophen 325 MG TAB 650 MG PO (11:02)
--- NOTE | 2019-11-01 11:29 | PT.INTREAT ---
PT Notes Visit Reasons: MSSA BACTEREMIA,CDIFF,ILEUS Date: 11/01/2019 Treatment time: 45 minutes Treatment: 9711 0?2 9711 2?1 No new complaints offered. Treatment: The session consisted of gait training with and without the walker, balance training, the NuStep for 5 minutes x 2, along with therapeutic exercises focusing on the trunk and quadriceps, referred to the flowsheet. Tolerated session well and his response to activity was monitored via pulse. Disclaimer: This note was created using [employer] voice recognition software. It was reviewed for major content. However, there may be multiple small discrepancies and errors due to the voice recognition aspects of the software.
[2019-11-01] MEDS: cefTRIAXone 2 GM/50 ML BAG IVPB (14:38)
[2019-11-01] MEDS: FLUCONAZOLE 200 MG/100 ML BAG 100 MG IVPB (15:33)
[2019-11-01 20:10] VITALS: BP 157/68; PULSE 70; RESP 18; TEMP 37; O2SAT 97
[2019-11-02] MEDS: Levothyroxine 25 MCG TAB PO (06:31)
[2019-11-02 07:10] VITALS: BP 156/60; PULSE 70; RESP 18; TEMP 37; O2SAT 97
[2019-11-02 07:26] LABS: ALT 10 U/L (16-63); AST 18 U/L (15-37); Albumin 2.4 g/dL (3.4-5.0); Alkaline Phosphatase 87 U/L (46-116); Anion Gap 7.7 mmol/L (3-11); BUN 17 mg/dL (7-18); Bilirubin, Total 0.3 mg/dL (0.2-1.0); C-Reactive Protein 0.55 mg/dL (0.0-0.3); CO2 26.3 mmol/L (21.0-32.0); CREATININE 1.18 mg/dL (0.70-1.30); Calcium 8.5 mg/dL (8.5-10.1); Chloride 109 mmol/L (98-107); Glucose 105 mg/dL (74-106); Potassium 3.8 mmol/L (3.5-5.1); Sodium 143 mmol/L (136-145); Total Protein 6.1 g/dL (6.4-8.2)
[2019-11-02 07:37] LABS: Abs Immature Grans 0.01 k/cumm (0.0-0.09); Absolute Basophil Count 0.02 k/cumm (0.0-0.2); Absolute Eosinophil Count 0.08 k/cumm (0.0-0.7); Absolute Lymphocyte Count 0.72 k/cumm (1.2-3.4); Absolute Monocyte Count 0.42 k/cumm (0.11-0.7); Absolute Neutrophil Count 2.59 k/cumm (1.2-6.7); Basophils % 0.5; Eosinophils % 2.1; HCT 33.1 % (40.0-50.0); HGB 10.6 g/dL (13.5-17.5); Immature Grans % 0.3 %; Lymphocytes % 18.8; Mean Corpuscular Hemoglobin 30.5 pg (27.0-33.0); Mean Corpuscular Volume 95.4 fL (80-95); Mean Platelet Volume 8.7 fL (8.0-11.0); Monocytes % 10.9; Neutrophils % 67.4; Platelet Count 254 x1000/uL (130-400); RBC 3.47 m/cumm (4.50-6.00); White Blood Cell Count 3.84 k/cumm (4.4-10.8)
[2019-11-02 08:02] LABS: Iron 41 ug/dL (65-175); Total Iron Binding Capacity 148 ug/dL (250-450); Transferrin Sat 28 % (20-55)
[2019-11-02 08:31] LABS: ESR 79 mm/hr (1-20)
[2019-11-02] MEDS: Protein Nutritional Supplement 16 GM 1 OUNCE PACKET PO ×2 (08:36→21:16)
[2019-11-02] MEDS: Pantoprazole 40 MG TABCR PO (08:36)
[2019-11-02] MEDS: Finasteride 5 MG TAB PO (08:36)
[2019-11-02] MEDS: Tamsulosin 0.4 MG CAPCR PO ×2 (08:36→21:16)
[2019-11-02] MEDS: Normal Saline Flush 10 ML SYR 20 ML IVP ×2 (08:37→21:16)
[2019-11-02] MEDS: Magnesium Gluconate 500 MG TAB PO (09:46)
[2019-11-02] MEDS: Lidocaine 5% Patch 1 PATCH TP (10:15)
--- NOTE | 2019-11-02 11:53 | PTTR_ITS ---
Date of service: 11/02/19 Time of Service: 10:15 PT Notes Visit Reasons: MSSA BACTEREMIA,CDIFF,ILEUS Inpatient Physical Therapy Treatment Note [facility] Date: 11/02/19 PRECAUTIONS:standard, fall SUBJECTIVE: Willy states that he's a little sore today after the increase in his program yesterday. He's been walking in the halls with nursing as often as he can. OBJECTIVE: PAIN: soreness in neck; has lidocaine patch in place today BED MOBILITY/TRANSFERS Sit-stand: independent Stand-sit: independent Bed-Chair: independent with FWW , Supervision wiithout AD Chair-bed: independent with FWW, Supervision wiithout AD GAIT Assistive Device: FWW Weight bearing: full Assist: independent Distance: 500'x2 Deviation: none Patient completes an additional 500' ambulation without assistive device, with supervision only. He demonstrates slightly increased path deviation, with a single episode of reliance on wall for balance recovery. Neuromuscular Re-education (05607u7): Patient was instructed in balance retraining with static and dynamic balance retraining activities as noted on flowsheet. Continued with dynamic surfaces with Airex pads, where he requires UE support to rail and CGA. Tolerated activities with single leg standing, visual occlusion, and small MAXIMILIANO on Airex pads. Also added trunk rotation and trunk extension activities in small MAXIMILIANO standing to facilitate improved weight shifting. Therapeutic Exercises (19834q5): Progressed UE and LE strengthening activities as noted in flowsheet. Patient was additionally instructed in cardiovascular retraining activities for improved activity tolerance. He requires min A for set up of NuStep, with cues and modification for set up. He completes a total of 7 minutes of stepping, with 1 minute of direct one-on-one for set up and 6 minutes of supervised, non-billable stepping. He also completed intervals of 500' of ambulation with transition away from AD. He requires minimal cues for gait mechanics and safety. ASSESSMENT: Demonstrating improved independence with ambulation. Patient may now begin walking in halls independently with FWW. Will continue with daily PT sessions focused on improving balance and safety with unsupported ambulation. PLAN: Continue 1x/day for balance retraining and fall prevention. TREATMENT CODE/TIME: 60 minutes total, with 54 minutes of billable time (10:15- 11:15); [id number], [id number] Cora Brooks, PT, DPT [facility]
[2019-11-02] MEDS: cefTRIAXone 2 GM/50 ML BAG IVPB (13:12)
[2019-11-02] MEDS: FLUCONAZOLE 200 MG/100 ML BAG 100 MG IVPB (14:29)
[2019-11-03] MEDS: Levothyroxine 25 MCG TAB PO (05:08)
[2019-11-03 07:16] VITALS: BP 151/68; RESP 18; TEMP 36.7; O2SAT 97
[2019-11-03] MEDS: Finasteride 5 MG TAB PO (07:43)
[2019-11-03] MEDS: Protein Nutritional Supplement 16 GM 1 OUNCE PACKET PO ×2 (07:43→19:36)
[2019-11-03] MEDS: Pantoprazole 40 MG TABCR PO (07:44)
[2019-11-03] MEDS: Tamsulosin 0.4 MG CAPCR PO ×2 (07:45→19:36)
[2019-11-03] MEDS: Lidocaine 5% Patch 1 PATCH TP (08:09)
[2019-11-03] MEDS: Normal Saline Flush 10 ML SYR 20 ML IVP ×2 (08:09→19:36)
[2019-11-03] MEDS: Magnesium Gluconate 500 MG TAB PO (10:01)
[2019-11-03] MEDS: Acetaminophen 325 MG TAB 650 MG PO ×2 (10:05→19:38)
--- NOTE | 2019-11-03 10:29 | PT.INTREAT ---
Date of service: 11/03/19 Time of Service: 10:29 PT Notes Visit Reasons: MSSA BACTEREMIA,CDIFF,ILEUS Inpatient Physical Therapy Treatment Note [facility] Date: 11/03/19 PRECAUTIONS: Fall SUBJECTIVE: Dawit is excited that he is scheduled to return to home in seven days. He reports that he has been walking independently with a FWW in the halls in the evenings. He also reports that he feels that he is doing well, and feels safe with independent mobility within his room at this time. OBJECTIVE: PAIN: Dawit c/o a headache during PT session. BED MOBILITY/TRANSFERS: Independent with all bed mobility and transfers at this time. GAIT Assistive Device: No AD FWW Weight bearing: Full Assist: S without AD I with FWW Distance: 150' + 250' without AD 200' with FWW THEREX: Patient completed NuStep biking 2 x 7 minutes at level 8. NEURO RE-ED: Patient completed balance retraining program, as instructed, performing both static and dynamic balance activities, as noted on flow sheet. Utilized Airex pad with several balance activities, patient requires use of unilateral UE support with tandem stance and SLS activities. Patient completed trunk rotation and bending activities with weighted objects. Added cone tap, [place], and step, patient required CGA and unilateral UE support with this activity. ASSESSMENT: Patient tolerated session well demonstrating independence with hallway ambulation with FWW. He was able to tolerate the addition of dynamic balance activity with cones to his Neuro Re-Ed program today. PLAN: Continue with PT's POC TREATMENT CODE/TIME: 60 minutes; [id number], [id number] x3
[2019-11-03] MEDS: cefTRIAXone 2 GM/50 ML BAG IVPB (14:23)
[2019-11-04] MEDS: Levothyroxine 25 MCG TAB PO (06:14)
[2019-11-04 07:28] VITALS: BP 163/64; PULSE 79; RESP 18; TEMP 36.2; O2SAT 98
[2019-11-04] MEDS: Pantoprazole 40 MG TABCR PO (07:59)
[2019-11-04] MEDS: Protein Nutritional Supplement 16 GM 1 OUNCE PACKET PO ×2 (08:00→19:55)
[2019-11-04] MEDS: Lidocaine 5% Patch 1 PATCH TP (08:00)
[2019-11-04] MEDS: Tamsulosin 0.4 MG CAPCR PO ×2 (08:00→19:55)
[2019-11-04] MEDS: Finasteride 5 MG TAB PO (08:00)
[2019-11-04] MEDS: Normal Saline Flush 10 ML SYR 20 ML IVP ×2 (08:02→19:55)
[2019-11-04] MEDS: Magnesium Gluconate 500 MG TAB PO (10:07)
--- NOTE | 2019-11-04 10:37 | PT.INTREAT ---
Date of service: 11/04/19 Time of Service: 10:37 PT Notes Visit Reasons: MSSA BACTEREMIA,CDIFF,ILEUS Inpatient Physical Therapy Treatment Note [facility] Date: 11/04/19 PRECAUTIONS: Fall. Standard. Activity as tolerated. SUBJECTIVE: Dawit continues to express his satisfaction about his current mobility level being independent inside his room and in the hallways with a front wheeled walker. He states that he has been very good with doing at least 5-7 loops each day and continues with performing his exercises for 40 repetitions in the afternoons using resistance equipment left for him in his room. OBJECTIVE: General observation: PICC line in right UE. Lidocaine patch on posterior neck area. PAIN: None reported BED MOBILITY/TRANSFERS: Independent with all bed mobility and transfers at this time. GAIT Assistive Device: No AD Weight bearing: Full Assist: S Distance: 520 feet +520 feet. Deviation: No LOB. Did complain of initial stiffness in the left knee that subsided with ambulation performance. Increased gwen seen. THERA ACT: Using the doorjamb step up, patient tolerated going up with the right foot and down with a left x10, up with a left foot and down with a right x10, up with the left foot and down with the left foot x10, and up with the right and down with a right foot x10 with only close regarding provided by PT. ASSESSMENT: Patient continues to maintain modified independent level using the front wheeled walker in his room and in the hallways. He continues to be determined with achieving his goal of discharging home with no assistive device for all level and non-level surface ambulation. PLAN: Continue with PT's POC TREATMENT CODE/TIME: 31672 x 26 minutes beginning at 10:37 AM
[2019-11-04] MEDS: Normal Saline Flush 10 ML SYR IVP (14:24)
[2019-11-04] MEDS: cefTRIAXone 2 GM/50 ML BAG IVPB (14:25)
[2019-11-04] MEDS: Normal Saline 500 ML 30 ML IVPB (14:26)
[2019-11-05 03:30] VITALS: BP 152/65; PULSE 69; RESP 18; TEMP 37.2; O2SAT 96
[2019-11-05] MEDS: Levothyroxine 25 MCG TAB PO (06:19)
[2019-11-05 07:13] VITALS: BP 147/74; PULSE 72; RESP 18; TEMP 37.4; O2SAT 94
[2019-11-05] MEDS: Finasteride 5 MG TAB PO (08:42)
[2019-11-05] MEDS: Normal Saline Flush 10 ML SYR 20 ML IVP ×2 (08:42→20:16)
[2019-11-05] MEDS: Pantoprazole 40 MG TABCR PO (08:42)
[2019-11-05] MEDS: Tamsulosin 0.4 MG CAPCR PO ×2 (08:42→20:15)
[2019-11-05] MEDS: Protein Nutritional Supplement 16 GM 1 OUNCE PACKET PO ×2 (08:42→20:16)
[2019-11-05] MEDS: Magnesium Gluconate 500 MG TAB PO (10:15)
--- NOTE | 2019-11-05 10:47 | PT.INPN ---
Date of service: 11/05/19 Time of Service: 10:47 PT Notes Visit Reasons: MSSA BACTEREMIA,CDIFF,ILEUS Inpatient Physical Therapy Progress Note Date: 11/05/2019 Dates of Service: through 11/05/2019 PRECAUTIONS: Fall. Standard. Activity as tolerated. SUBJECTIVE: Dawit stated he slept 7 straight hours last night. He reports that his knees are good. His neck remains in need of that Lidocaine patch so it does not act out, he feels that eventually it will fix itself. He reports that his walking has been good, being able to do the big loop 5x twice a day without any issues. OBJECTIVE: General observation: Lidocaine patch on posterior neck. PICC line in the right UE. Bilateral TEDS on. PAIN: None reported. BED MOBILITY/TRANSFERS Sit-stand: Modified independent using B UE for support, requires FWW Stand-sit: Modified independent using B UE for support Bed-Chair: Modified independent using B UE for support, requires FWW Chair-bed: Modified independent using B UE for support, requires FWW GAIT Assistive Device: No AD Weight bearing: FWB Assist: Supervision Distance: 780 feet Deviation: No LOB. Chayo increased. No SOB. THERA ACT/NEURO-RE ED: Using the [employer] step board and with 3 lb ankle weights bilaterally, patient tolerated going up with the R foot and down with a L x10, up with a L foot and down with a R x10, up with the L foot and down with the L foot x10, and up with the R and down with a R foot x10 without holding onto anything with only standby assist provided by PT working on strengthening, balance skills/awareness/and mobility level progression. Assessment: Dawit is upgraded back to modified independent inside his room using his front-wheeled walker as of last 10/28/2019 and he has been managing well since. He continues to be determined to reach his personal goal of discharging from this hospital at independent level with all ambulation tasks without an assistive device. Excessive posterior sway has resolved, no LOB has been seen during all ambulation performance with PT and [employer] this week, chayo has significantly improved, and patient's confidence level has increased. Signs of some confusion which limited him since diagnosis of C. Difficile infection have also resolved which has contributed to an improved safety awareness. Goals 6-8 are upgraded below to facilitate patient's achievement of his personal goal. Patient continues to present with clinical signs and symptoms consistent with current/admitting diagnoses that have resulted to mobility limitations, gait instability, generalized weakness, and impairment of motor control as demonstrated by the following impairment level findings: 1. Decreased strength to B UE and B LE major muscle groups 2. Impaired dynamic standing balance 3. Impaired activity tolerance Impairments are continuing to contributing to the following functional limitations: 1. Inability to independently ambulate without assistive device and physical assistance 2. Increased fall risk Patient is assessed as a 18469 moderate complexity based on the following: History: 74-year-old male waiting for impairment level findings, functional limitations, and medical history as indicated above Examination: Demonstrable impairment in strength, balance, and mobility level with underlying impairments and functional limitations as documented above Presentation: Stable Decision Makin moderate complexity Goals: Goals X1 week 1. Sit-Stand independent MET. GOAL DISCHARGED OF 10/29/2019. 2. Stand-Sit independent MET. GOAL DISCHARGED OF 10/29/2019. 3. Bed-Chair independent MET. GOAL DISCHARGED OF 10/29/2019. 4. Chair-Bed independent MET. GOAL DISCHARGED OF 10/29/2019. 5. Independent gait on level surface with use of least restrictive device for at least 800 feet without report of pain nor dyspnea MET. GOAL DISCHARGED OF TODAY, 11/05/2019. 6. Independent stair negotiation while holding onto bilateral rails for at least 10 steps without report of pain nor dyspnea NOT MET. CONTINUE. 7. Independent with home exercise program MET. CONTINUE WITH EX PROGRESSION TRAINING. 8. Good static and dynamic standing balance/tolerance MET. UPGRADED as of 10/29/2019 TO: Normal static and dynamic standing balance/tolerance NOT MET. CONTINUE. 9. NEW GOAL as of 10/29/2019: Patient will demonstrate independent ambulation over paved, gravel, grass, dirt paths without an assistive device Plan of Care/Treatment Plan: 1/day, 7 days/week x 1 week. Continue [facility] Physical Therapy intervention for strengthening, bed mobility, transfers, gait, stairs, and balance training to achieve goals. DISCHARGE RECOMMENDATIONS: Outpatient PT for continued progression with advance level balance exercises as needed. TREATMENT CODE/TIME: 62444 x 15 minutes, 20345 ? 12 minutes, 54314 ?11 minutes beginning at 10:47 AM. Thank you very much for this referral. Ariane Poe PT, DPT, CLT [facility] Inpatient PT at [place], [place]
--- NOTE | 2019-11-05 11:32 | W.PM.PROGNOT ---
Date of Service Date of service: 11/05/19 Time of Service: 11:32 Assessment and Plan Assessment and plan (1) MSSA bacteremia: Status: Acute Assessment and plan: with lumbar discitis, ?osteomyelitis. developed a multiforme rash thought to be due to ancef and has been switched to ceftriaxone to complete his course. Needs antibiotics thru 11/09/2019. cefazolin added to his list of allergies. Transthoracic echo negative for endocarditis. surveillance labs on Mondays (2) Anemia, blood loss: Status: Acute Assessment and plan: Hemoglobin up to 10.6. he had received IV iron, he continues on oral iron replacement. He has been asymptomatic. upper and lower endoscopy with general surgery showed gastritis. He continues to receive vancomycin for C. difficile with repeat testing negative. did not require blood transfusion. No further labs at this time unless he becomes unstable. (3) Erythema multiforme: Status: Resolved Assessment and plan: suspect from cefazolin. Resolved now off it. ID recommends Completing course with ceftriaxone which he is tolerating well. if his rash worsens or he develops allergy to ceftriaxone recommendations for daptomycin, she advises against cipro or vancomycin. (4) Clostridium difficile enterocolitis: Status: Resolved Assessment and plan: will continue oral vancomycin while on antibiotics. repeat C. difficile testing negative. (5) Essential hypertension: Status: Acute Assessment and plan: stable, continue to monitor and adjust medications as needed. (6) Lumbar discitis: Status: Acute Assessment and plan: no further pain noted, continue prn pain management (7) Discharge planning issues: Status: Acute Assessment and plan: will need to stay until 11/08 to complete course of antibiotics. anticipate discharge to home with no services once completed. Subjective Subjective Patient reports: no new complaints, feels better, tolerating liquids well, tolerating a regular diet, voiding w/o difficulty, bowel movement and afebrile; denies shortness of breath Interval history since last seen: Patient has remained hemodynamically stable and is tolerating a regular diet. He continues to have loose stools which have not worsened. They continue to be positive for occult blood and his hemoglobin did drop this Saturday from 8.2-7.2. He has not had any shortness of breath chest pain dizziness or hypotension. Exam Const General: cooperative, healthy appearing, comfortable, no acute distress and well developed Nutritional Appearance: average body habitus Orientation: alert, awake and oriented x3 HENMT Head: normocephalic and abrasion left frontal Face and sinus: normal facial exam Mouth: oral mucosae normal Resp Effort & Inspection: normal respiratory effort Auscultation: clear to auscultation bilaterally Cardio Rate: regular rate Rhythm: regular rhythm GI Inspection: normal to inspection Palpation: soft Auscultation: normal bowel sounds Skin Lesions: lesion noted (scab left forehead) Rashes: rashes noted (multiforme rash on abdomen and thighs, ) Neuro General: patient alert, patient awake and patient oriented x3 Extrem General: normal to inspection, full ROM and no pedal edema Objective Objective Clinical Data: Vital Signs Temperature 37.4 C 11/05/19 07:13 Temperature Source Tympanic 11/05/19 07:13 Pulse 72 11/05/19 07:13 Pulse Rhythm Regular 11/05/19 08:45 Respiratory Rate 18 11/05/19 07:13 Respiratory Effort Non-Labored 11/05/19 08:45 Respiratory Depth Normal 11/05/19 08:45 Respiratory Pattern Normal 11/05/19 08:45 Blood Pressure 147/74 H 11/05/19 07:13 Pulse Oximetry 94 L 11/05/19 07:13 Oxygen Delivery Method Room Air 11/05/19 07:13 Oxygen Flow Rate 0 11/05/19 07:13 Fraction of Inspired Oxygen (FIO2) 21 11/02/19 23:10 Pain Level 0 11/05/19 07:13 Comment 10/28/19 08:56 Intake & Output 11/04/19 11/04/19 11/05/19 11:59 23:59 11:59 Intake Total 470 / 710 240 / 710 560 / 560 Output Total 1600 / 2450 850 / 2450 1300 / 1300 Balance -1130 / -1740 -610 / -1740 -740 / -740 Intake: IV Oral 450 / 690 240 / 690 540 / 540 Output: Urine 1600 / 2450 850 / 2450 1300 / 1300 Other: Urine Color Yellow Yellow Light Analilia Urine Appearance Clear Clear Clear Urine Odor None Normal Stool Size Moderate Moderate Moderate Stool Characteristics Soft Liquid Liquid Liquid Brown Brown Brown Black Voiding Methods Toilet Toilet Toilet Laboratory Results WBC 3.84 k/cumm (4.4-10.8) L D 11/02/19 06:38 RBC 3.47 m/cumm (4.50-6.00) L 11/02/19 06:38 Hgb 10.6 g/dL (13.5-17.5) L D 11/02/19 06:38 Hct 33.1 % (40.0-50.0) L D 11/02/19 06:38 MCV 95.4 fL (80-95) H 11/02/19 06:38 MCH 30.5 pg (27.0-33.0) 11/02/19 06:38 MCHC 32.0 g/dL (32.0-36.0) 11/02/19 06:38 RDW 14.0 % (11.8-14.1) 11/02/19 06:38 Plt Count 254 x1000/uL (130-400) D 11/02/19 06:38 MPV 8.7 fL (8.0-11.0) 11/02/19 06:38 Immature Gran % 0.3 % 11/02/19 06:38 Neutrophils % 67.4 11/02/19 06:38 Lymphocytes % 18.8 11/02/19 06:38 Monocytes % 10.9 11/02/19 06:38 Eosinophils % 2.1 11/02/19 06:38 Basophils % 0.5 11/02/19 06:38 Absolute Neutrophils 2.59 k/cumm (1.2-6.7) 11/02/19 06:38 Absolute Lymphocytes 0.72 k/cumm (1.2-3.4) L 11/02/19 06:38 Absolute Monocytes 0.42 k/cumm (0.11-0.7) 11/02/19 06:38 Absolute Eosinophils 0.08 k/cumm (0.0-0.7) 11/02/19 06:38 Absolute Basophils 0.02 k/cumm (0.0-0.2) 11/02/19 06:38 Polychromasia Present 10/26/19 06:30 ESR 79 mm/hr (1-20) H 11/02/19 06:38 PT 10.7 sec (9.3-11.0) 10/24/19 08:00 INR 1.1 (0.9-1.1) 10/24/19 08:00 APTT 23.8 sec (21.0-31.4) 10/24/19 08:00 Sodium 143 mmol/L (136-145) 11/02/19 06:38 Potassium 3.8 mmol/L (3.5-5.1) 11/02/19 06:38 Chloride 109 mmol/L (98-107) H 11/02/19 06:38 Carbon Dioxide 26.3 mmol/L (21.0-32.0) 11/02/19 06:38 Anion Gap 7.7 mmol/L (3-11) 11/02/19 06:38 BUN 17 mg/dL (7-18) 11/02/19 06:38 Creatinine 1.18 mg/dL (0.70-1.30) 11/02/19 06:38 Estimated GFR/1.73 m2 >= 60.00 (mL/min/1.73m2) 11/02/19 06:38 Glucose 105 mg/dL (74-106) 11/02/19 06:38 Calcium 8.5 mg/dL (8.5-10.1) 11/02/19 06:38 Magnesium 1.6 mg/dL (1.8-2.4) L 11/01/19 08:30 Iron 41 ug/dL (65-175) L 11/02/19 06:38 TIBC 148 ug/dL (250-450) L 11/02/19 06:38 Transferrin % Sat 28 % (20-55) 11/02/19 06:38 Total Bilirubin 0.3 mg/dL (0.2-1.0) 11/02/19 06:38 AST 18 U/L (15-37) 11/02/19 06:38 ALT 10 U/L (16-63) L 11/02/19 06:38 Alkaline Phosphatase 87 U/L (46-116) 11/02/19 06:38 Creatine Kinase 49 U/L (39-308) 10/24/19 08:00 C-Reactive Protein 0.55 mg/dL (0.0-0.3) H 11/02/19 06:38 Total Protein 6.1 g/dL (6.4-8.2) L 11/02/19 06:38 Albumin 2.4 g/dL (3.4-5.0) L 11/02/19 06:38 Procalcitonin < 0.1 ng/mL 11/01/19 08:30
[2019-11-05] MEDS: Acetaminophen 325 MG TAB 650 MG PO (13:38)
[2019-11-05] MEDS: cefTRIAXone 2 GM/50 ML BAG IVPB (13:53)
[2019-11-05] MEDS: Normal Saline Flush 10 ML SYR IVP (13:54)
--- NOTE | 2019-11-05 15:01 | PDOC.CMACT ---
- If Service Date Differs Date of service: 11/05/19 Time of Service: 15:01 Care Management Activity Note S/O:Dawit remains on SWB level one for IV abx anticipated end date is 11/10/2019 . He enjoys socializing and ambulating in the [place]. He continues working with PT, as his goals are to gain strength prior to returning home in order to be more independent. He has a 'fill in the blank' book to work on, as well as his own computer use. P: Dawit will be discharged home with home health services when medically ready, he will need ongoing PT once he returns home. He will be transported home by family at time of discharge.
[2019-11-05 19:52] VITALS: BP 149/65; PULSE 65; RESP 18; TEMP 36.9; O2SAT 97
[2019-11-06] MEDS: Levothyroxine 25 MCG TAB PO (05:58)
[2019-11-06 06:57] VITALS: BP 174/68; PULSE 78; RESP 16; TEMP 36.5; O2SAT 96
[2019-11-06] MEDS: Pantoprazole 40 MG TABCR PO (07:58)
[2019-11-06] MEDS: Tamsulosin 0.4 MG CAPCR PO ×2 (07:59→20:14)
[2019-11-06] MEDS: Finasteride 5 MG TAB PO (07:59)
[2019-11-06] MEDS: Protein Nutritional Supplement 16 GM 1 OUNCE PACKET PO ×2 (07:59→20:14)
[2019-11-06] MEDS: Lidocaine 5% Patch 1 PATCH TP (07:59)
[2019-11-06] MEDS: Normal Saline Flush 10 ML SYR 20 ML IVP ×2 (08:01→20:14)
[2019-11-06] MEDS: Magnesium Gluconate 500 MG TAB PO (09:41)
[2019-11-06] MEDS: Acetaminophen 325 MG TAB 650 MG PO (13:14)
[2019-11-06] MEDS: Normal Saline Flush 10 ML SYR IVP (13:33)
[2019-11-06] MEDS: cefTRIAXone 2 GM/50 ML BAG IVPB (13:35)
[2019-11-06] MEDS: Normal Saline 500 ML 30 ML IVPB (13:36)
[2019-11-06 19:40] VITALS: BP 178/73; PULSE 68; RESP 18; TEMP 37.1; O2SAT 97
[2019-11-07] MEDS: Levothyroxine 25 MCG TAB PO (05:59)
[2019-11-07 07:58] VITALS: BP 150/60; PULSE 68; RESP 17; TEMP 36.6; O2SAT 98
[2019-11-07] MEDS: Finasteride 5 MG TAB PO (08:11)
[2019-11-07] MEDS: Pantoprazole 40 MG TABCR PO (08:11)
[2019-11-07] MEDS: Tamsulosin 0.4 MG CAPCR PO ×2 (08:12→19:46)
[2019-11-07] MEDS: Lidocaine 5% Patch 1 PATCH TP (08:12)
[2019-11-07] MEDS: Protein Nutritional Supplement 16 GM 1 OUNCE PACKET PO ×2 (08:12→19:46)
[2019-11-07] MEDS: Normal Saline Flush 10 ML SYR 20 ML IVP ×2 (08:13→19:45)
[2019-11-07] MEDS: Magnesium Gluconate 500 MG TAB PO (11:03)
--- NOTE | 2019-11-07 11:56 | PT.INTREAT ---
Date of service: 11/07/19 Time of Service: 10:00 PT Notes Visit Reasons: MSSA BACTEREMIA,CDIFF,ILEUS Inpatient Physical Therapy Treatment Note [facility] Date: November 07, 2019 PRECAUTIONS: Standard precautions, fall precautions, activity as tolerated SUBJECTIVE: Patient states that he is been holding up pretty well. Is anxious to be discharged home which he is hoping for this Saturday. Is looking forward to doing some more balance training activities. Admits he feels stronger each day. Continues to need Lidoderm patch for his cervical thoracic junction pain. Admits no significant pain in the hips or knees today. OBJECTIVE: GAIT: Assistive Device: Wheeled walker Weight bearing: Full weightbearing Assist: Supervision Distance: Patient walks the big loop of 260 feet x 3 from his room ending up in the PT office. Deviation: Mildly widened base of support THEREX: Today's treatment consisted of neuro re-education 41948?2. Consisted of a variety of balance activities both in sitting, standing. For specifics refer to flow sheets. Initiated some single-leg stance standing at a rail utilizing left and right lower extremity single-leg stance for 22nd durations with frequent re-sets for hand touching rail. Also incorporated Airex tandem stance right and left foot anterior 30 seconds each eyes open then eyes closed. Work some split stance activities with yellow Thera-Band perturbations posterior lateral to the left and to the right and posterior. Worked on some tripod sitting activities sitting at edge of inth with 1 foot in contact with the ground with horizontal press with 2 pound ball with perturbations offered in all directions via rhythmic stabilization 10 seconds each 3 times. This was done bilateral for left and right lower extremity. Also worked on some mid ball trunk rotational core hand off to the left into the right 10 times each. Then worked on some dynamic balance activities with a front wheeled walker using head turns left and right as well as flexion and extension. 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 Dynamic activities with head cervical rotation was performed over the span of 400 feet. Prior to start of neuromuscular reeducation activities he did perform NuStep 5 minutes. ASSESSMENT: Tolerated activities well. Quite limited with his single-leg stance but do encourage him to continue working with this once he is discharged. We do review safety measures for set up when performing this activity. Essentially pretty independent with all functional activities: sit- stand, bed mobility, and to sit. Has decent gwen with his ambulation. PLAN: We will try some single-point gait activities next visit. Continue with his balance activities TREATMENT CODE/TIME: 30 minutes direct one-on-one care 10:00 to 1030 Disclaimer: This note was created using [employer] voice recognition software. It was reviewed for major content. However, there may be multiple small discrepancies and errors due to the voice recognition aspects of the software.
[2019-11-07] MEDS: cefTRIAXone 2 GM/50 ML BAG IVPB (13:37)
[2019-11-07] MEDS: Normal Saline 500 ML 30 ML IVPB (13:38)
[2019-11-07] MEDS: Normal Saline Flush 10 ML SYR IVP (13:38)
[2019-11-08] MEDS: Levothyroxine 25 MCG TAB PO (06:46)
[2019-11-08] MEDS: Protein Nutritional Supplement 16 GM 1 OUNCE PACKET PO ×2 (09:13→19:46)
[2019-11-08] MEDS: Finasteride 5 MG TAB PO (09:14)
[2019-11-08] MEDS: Magnesium Gluconate 500 MG TAB PO (09:14)
[2019-11-08] MEDS: Pantoprazole 40 MG TABCR PO (09:14)
[2019-11-08] MEDS: Tamsulosin 0.4 MG CAPCR PO ×2 (09:15→19:46)
[2019-11-08] MEDS: Normal Saline Flush 10 ML SYR 20 ML IVP ×2 (09:15→19:46)
--- NOTE | 2019-11-08 12:13 | PTTR_ITS ---
PT Notes Visit Reasons: MSSA BACTEREMIA,CDIFF,ILEUS Inpatient Physical Therapy Treatment Note [facility] Date: November 08, 2019 PRECAUTIONS: Standard precautions, fall precautions, activity as tolerated SUBJECTIVE: Patient states that he slept great last night. Thinks it was due to the increased activity level he had yesterday. Reports that he slept over 6 hours. Reports less cervical pain since working with his cervical range of motion ambulation gait training/balance activities. Still hopeful to be discharged home on Saturday. OBJECTIVE: GAIT: Assistive Device: Wheeled walker Weight bearing: Full weightbearing Assist: Supervision Distance: Patient walks the big loop of 70 feet from his room ending up in the PT office. We then trial some single-point cane ambulation 520 feet walking the big loop twice. Did require verbal cues for proper cane use. No loss of balance. Tends to ambulate a little too quickly with a cane. Verbal cues offered for proper gwen as well as utilizing cane with reciprocal arm swing fashion in the right hand advancing it with a left lower extremity. Deviation: Ambulates too quickly with use of single-point cane for safety measures. THEREX: Today's treatment consisted of neuro re-education 41627?2. Consisted of a variety of balance activities both in sitting, standing. For specifics refer to flow sheets. Initiated some single-leg stance standing at a rail utilizing left and right lower extremity single-leg stance for 22nd durations with frequent re-sets for hand touching rail. Also incorporated Airex tandem stance right and left foot anterior 30 seconds each eyes open then eyes closed. Work some split stance activities with yellow Thera-Band perturbations posterior lateral to the left and to the right and posterior. Worked on some tripod sitti ng activities sitting at edge of [facility] with 1 foot in contact with the ground with horizontal press with 2 pound ball with perturbations offered in all directions via rhythmic stabilization 10 seconds each 3 times. This was done bilateral for left and right lower extremity. Also worked on some mid ball trunk rotational core hand off to the left into the right 10 times each. Then worked on some dynamic balance activities with a front wheeled walker using head turns left and right as well as flexion and extension. 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 Dynamic activities with head cervical rotation was performed over the span of 520 feet. Prior to start of neuromuscular reeducation activities he did perform NuStep 6 minutes. ASSESSMENT: Tolerated activities well. Quite limited with his single-leg stance but do encourage him to continue working with this once he is discharged. We do review safety measures for set up when performing this activity. Essentially pretty independent with all functional activities: sit- stand, bed mobility, and to sit. Has decent gwen with his ambulation with use of front wheeled walker. Ambulates too quickly with use of single-point cane. Do feel it would still benefit from use of front wheeled walker for community ambulation purposes PLAN: Patient will continue with his independent strengthening program that he performs in his room. Will continue work neuromuscular reeducation activities both static and dynamic. TREATMENT CODE/TIME: [id number]: 04-06. Disclaimer: This note was created using [employer] voice recognition software. It was reviewed for major content. However, there may be multiple small discrepancies and errors due to the voice recognition aspects of the software.
[2019-11-08] MEDS: Normal Saline 500 ML 30 ML IVPB (15:08)
[2019-11-08] MEDS: cefTRIAXone 2 GM/50 ML BAG IVPB (15:08)
[2019-11-08] MEDS: Normal Saline Flush 10 ML SYR IVP (16:10)
[2019-11-08 16:40] VITALS: BP 175/61; PULSE 78; RESP 18; TEMP 36.5; O2SAT 98
[2019-11-08 20:24] VITALS: BP 150/70; O2SAT 98
[2019-11-09] MEDS: Levothyroxine 25 MCG TAB PO (05:53)
[2019-11-09 07:33] VITALS: BP 142/60; PULSE 84; RESP 18; TEMP 36.6; O2SAT 96
[2019-11-09] MEDS: Pantoprazole 40 MG TABCR PO (07:48)
[2019-11-09] MEDS: Tamsulosin 0.4 MG CAPCR PO (07:48)
[2019-11-09] MEDS: Finasteride 5 MG TAB PO (07:49)
[2019-11-09] MEDS: Protein Nutritional Supplement 16 GM 1 OUNCE PACKET PO (07:50)
[2019-11-09] MEDS: Lidocaine 5% Patch 1 PATCH TP (07:50)
[2019-11-09] MEDS: Normal Saline Flush 10 ML SYR 20 ML IVP (07:51)
[2019-11-09 07:57] LABS: Abs Immature Grans 0.01 k/cumm (0.0-0.09); Absolute Basophil Count 0.05 k/cumm (0.0-0.2); Absolute Eosinophil Count 0.09 k/cumm (0.0-0.7); Absolute Lymphocyte Count 0.92 k/cumm (1.2-3.4); Absolute Neutrophil Count 2.76 k/cumm (1.2-6.7); Basophils % 1.2; Eosinophils % 2.1; HCT 25.8 % (40.0-50.0); HGB 8.2 g/dL (13.5-17.5); Immature Grans % 0.2 %; Lymphocytes % 21.2; Mean Corp. HGB Concentration 31.8 g/dL (32.0-36.0); Mean Corpuscular Hemoglobin 30.7 pg (27.0-33.0); Mean Corpuscular Volume 96.6 fL (80-95); Mean Platelet Volume 8.5 fL (8.0-11.0); Monocytes % 11.5; Neutrophils % 63.8; Platelet Count 267 x1000/uL (130-400); RBC 2.67 m/cumm (4.50-6.00); RBC Distribution Width 13.9 % (11.8-14.1); White Blood Cell Count 4.33 k/cumm (4.4-10.8)
[2019-11-09 08:11] LABS: ALT 12 U/L (16-63); AST 19 U/L (15-37); Albumin 2.6 g/dL (3.4-5.0); Alkaline Phosphatase 95 U/L (46-116); Anion Gap 3.9 mmol/L (3-11); BUN 16 mg/dL (7-18); Bilirubin, Total 0.5 mg/dL (0.2-1.0); CO2 29.1 mmol/L (21.0-32.0); CREATININE 1.27 mg/dL (0.70-1.30); Calcium 8.6 mg/dL (8.5-10.1); Chloride 107 mmol/L (98-107); Estimated GFR 55.14 (mL/min/1.73m2); Glucose 103 mg/dL (74-106); Potassium 3.8 mmol/L (3.5-5.1); Sodium 140 mmol/L (136-145); Total Protein 6.4 g/dL (6.4-8.2)
[2019-11-09 08:30] LABS: ESR 75 mm/hr (1-20)
[2019-11-09] MEDS: Magnesium Gluconate 500 MG TAB PO (09:44)
[2019-11-09] MEDS: Acetaminophen 325 MG TAB 650 MG PO (09:45)
[2019-11-09] MEDS: Hydrogen Peroxide 3% 480 ML BTL (10:41)
--- NOTE | 2019-11-09 11:55 | DSE_ITS ---
Date of service: 11/09/19 Time of Service: 11:55 DS: Diagnosis Discharge Diagnosis (1) MSSA bacteremia: Start date: 11/09/19 Start time: 11:56 Status: Acute Asessment and Plan: with lumbar discitis, ?osteomyelitis. Finished a 6 week course of Ancef 2 gm IV q8hr through 11/08. Transthoracic echo negative for endocarditis. Surveillance labs (2) Anemia, blood loss: Start date: 11/09/19 Start time: 12:07 Status: Acute Asessment and Plan: he had received IV iron, he continues on oral iron replacement. He has been asymptomatic. upper and lower endoscopy with general surgery showed gastritis. He continues to receive vancomycin for C. difficile with repeat testing negative. did not require blood transfusion. No further labs at this time unless he becomes unstable. (3) Erythema multiforme: Start date: 11/09/19 Start time: 12:08 Status: Resolved Asessment and Plan: suspect from cefazolin. Resolved now off it. ID recommends Completing course with ceftriaxone which he is tolerating well. if his rash worsens or he develops allergy to ceftriaxone recommendations for daptomycin, she advises against cipro or vancomycin. (4) Clostridium difficile enterocolitis: Start date: 11/09/19 Start time: 12:09 Status: Resolved Asessment and Plan: He was on oral vanco for c diff while on antibiotics. (5) Essential hypertension: Start date: 11/09/19 Start time: 12:09 Status: Chronic Asessment and Plan: Stable (6) Lumbar discitis: Start date: 11/09/19 Start time: 12:10 Status: Acute Asessment and Plan: no further pain noted, continue prn pain management Discharge Plan Disposition Patient Disposition: HOME Condition: Good Discharge Details Reason For Visit: MSSA BACTEREMIA,CDIFF,ILEUS Admit Date/Time: 10/22/19 12:16 Admit Provider: Florence Lowery Attending Provider: Florence Lowery Primary Care Provider: Kai Peter Hospital Course Hospital Course: This is a 74 y.o male who was found to have MSSA bacteremia and had acute kidney injury as well as rhabdomyolysis and encephalopathy. Patient was treated with Ancef 2 g IV every 8 hours and eventually his blood cultures cleared as of September 28, 2019. He was entered into swing bed status on September 30, 2019 for completion of his parenteral antibiotics for his MSSA bacteremia and lumbar discitis. His current hospitalization under swing bed status was complicated by the development of C. difficile colitis for which he was treated with oral vancomycin. His stay was also further complicated by mechanical fall while he was bending over reaching for something he lost his balance and struck his head. This occurred on October 12, 2019 he was left with an abrasion over his forehead he was placed in a c-collar and a CT scan of his head and neck was performed CT of the cervical spine showed no fracture or subluxation. CT scan of the head showed no acute intracranial process. Patient continued his treatment under swing bed status including physical therapy as well as his Ancef and his oral vancomycin. On October 15, 2019 he developed protracted vomiting, as well as di arrhea. He denied abdominal pain but because of the protracted vomiting he was made n.p.o. and x-ray imaging of his abdomen which demonualized loops with air noted in the rectal vault but no free air. He was treated with NGT, bowel rest and IV fluids. he was started on IV flagyl for his cdiff. he was subsequently admitted to acute care for further evaluation and treatment. his symptoms slowly improved, he started passing flatus and stooling. His NGT was discontinued and diet advanced which he tolerated well. He has been hemodynamically stable, oxygenating well on room air with no c/o. He was again then made swing bed status to finish his course of ancef. He developed a rash over the course, and after conversation with ID at [facility] he was placed on ceftriaxone for the remainder of the course, the rash cleared and today is his last dose. Survilence labs without elevated WBC, CRP 0.6, procalcitonin less than 1. He is being discharged home with a follow up to PCP in 1 week. He denies CP, SOB, N/V/D. Home Meds and New Rx's Prescriptions: New vancomycin 250 mg Capsule 250 mg PO Q6H Qty: 27 RF: 0 Continued simvastatin 10 MG tablet 10 mg PO DAILY RF: 0 levothyroxine [Synthroid] 25 MCG tablet 25 mcg PO DAILY RF: 0 tamsulosin 0.4 MG capsule 0.4 mg PO BID RF: 0 finasteride [Proscar] 5 MG tablet 5 mg PO DAILY RF: 0 No Action (DME) vacuum erection device system kit See Dose Instructions .ROUTE .MEDSUPPLY Qty: 1 RF: 0 Discharge Instructions Instructions: Sepsis (GEN), C Diff (Clostridium Difficile) Infection (DC), Bowel Obstruction (DC) Additional Instructions: Follow up with PCP in 1 week Continue vancomycin for 2 weeks Eat yogurt for one month. Continue to walk and move around Continue PT as an outpatient Activity:: Activity as Tolerated Equipment/Supplies:: No Equipment Needed Diet:: As Tolerated Discharge Orders Discharge Orders: Discharge Order (Routine); Ordered 11/09/19 Ordered By: Lorelei Manzo DS: Summary Status at Discharge Functional status at discharge: independent ambulation Overall status at discharge: patient is progressing back to baseline Mental Status: mental status grossly normal Speech and Movement: speech and movement normal Mood: congruent mood Affect: normal affect Exam Const General: cooperative, healthy appearing, comfortable, no acute distress and well developed Nutritional Appearance: average body habitus Orientation: alert, awake and oriented x3 HENMT Head: normocephalic and abrasion left frontal Face and sinus: normal facial exam Mouth: oral mucosae normal Resp Effort & Inspection: normal respiratory effort Auscultation: clear to auscultation bilaterally Cardio Rate: regular rate Rhythm: regular rhythm GI Inspection: normal to inspection Palpation: soft Auscultation: normal bowel sounds Skin Lesions: lesion noted (scab left forehead) Rashes: rashes noted (multiforme rash on abdomen and thighs, ) Neuro General: patient alert, patient awake and patient oriented x3 Extrem General: normal to inspection, full ROM and no pedal edema Psych Mental Status: mental status grossly normal Speech and Movement: speech and movement normal Mood: congruent mood Affect: normal affect DS: Data Vitals/I&O Vitals and I&O: Vital Signs Temperature 36.6 C 11/09/19 07:33 Temperature Source Tympanic 11/09/19 07:33 Pulse 84 11/09/19 07:33 Pulse Rhythm Regular 11/09/19 08:03 Respiratory Rate 18 11/09/19 07:33 Respiratory Effort 11/09/19 08:03 Respiratory Depth Normal 11/09/19 08:03 Respiratory Pattern Normal 11/09/19 08:03 Blood Pressure 142/60 H 11/09/19 07:33 Pulse Oximetry 96 11/09/19 07:33 Oxygen Delivery Method Room Air 11/09/19 07:33 Oxygen Flow Rate 0 11/09/19 07:33 Fraction of Inspired Oxygen (FIO2) 21 11/02/19 23:10 Pain Level 1 11/09/19 11:00 Comment 11/06/19 19:40 Intake & Output 11/08/19 11/08/19 11/09/19 11:59 23:59 11:59 Intake Total 980 / 2250 1270 / 2250 390 / 390 Output Total 1302000 1050 / 1050 Balance -321 / 249 570 / 249 -660 / -660 Intake: IV 500 / 1050 550 / 1050 Oral 480 / 1200 720 / 1200 370 / 370 Output: Urine 1300 / 1999 700 / 1999 1050 / 1050 Stool Other: Urine Color Dark Analilia Yellow Dark Analilia Urine Appearance Clear Clear Clear Urine Odor None Normal Normal Stool Size Small Moderate Small Stool Characteristics Soft Soft Soft Formed Liquid Brown Brown Voiding Methods Toilet Toilet Toilet Data Completed and Pending Labs on day of discharge: Labs from last 24 hours 11/09/19 11/09/19 07:40 07:40 WBC 4.33 L RBC 2.67 L Hgb 8.2 L Hct 25.8 L MCV 96.6 H MCH 30.7 MCHC 31.8 L RDW 13.9 Plt Count 267 MPV 8.5 Immature Gran % 0.2 Neutrophils % 63.8 Lymphocytes % 21.2 Monocytes % 11.5 Eosinophils % 2.1 Basophils % 1.2 Absolute Neutrophils 2.76 Absolute Lymphocytes 0.92 L Absolute Monocytes 0.50 Absolute Eosinophils 0.09 Absolute Basophils 0.05 ESR 75 H Sodium 140 Potassium 3.8 Chloride 107 Carbon Dioxide 29.1 Anion Gap 3.9 BUN 16 Creatinine 1.27 Estimated GFR/1.73 m2 55.14 Glucose 103 Calcium 8.6 Total Bilirubin 0.5 AST 19 ALT 12 L Alkaline Phosphatase 95 C-Reactive Protein 0.60 H Total Protein 6.4 Albumin 2.6 L [facility] Medical History Anemia of chronic disease (Acute) BPH (benign prostatic hyperplasia) (Chronic) Conductive hearing loss (Acute) Dehydration (Acute) Epidural abscess (Acute ~10/09/13) Erectile dysfunction (Inactive) History of Clostridioides difficile colitis (Resolved ~10/2013) History of small bowel obstruction (Acute 07/12/15) MSSA (methicillin susceptible Staphylococcus aureus) septicemia (Acute 10/09/13) in setting of ruputured appendicitis and found to have disciitis epidural abscess, [facility], [place], [place]; Dr. Casey Mixon, infectious disease Osteomyelitis of vertebra of thoracolumbar region (Acute ~10/09/13) treated w/ 6 weeks of Ancef; seen by Dr. Casey Mixon, infectious disease, [facility], [place], [place]; completed treatment 11/20/2013; complicated by C. difficile colitis Panic anxiety syndrome (Acute) SBO (small bowel obstruction) (Acute) Sensorineural hearing loss (Acute) Surgical History H/O sinus surgery (Acute) History of bilateral cataract extraction (Acute) History of cholecystectomy (Chronic ~1998) History of tonsillectomy and adenoidectomy (Acute) S/P laparoscopic appendectomy (Acute 10/09/13) S/P left inguinal hernia repair (Acute) Social History Smoking/Tobacco Use Status: Former Tobacco Use Alcohol Intake: never Drug use: Never Substance use type: does not use Do you feel safe at home: Yes Do you feel safe in your relationship?: Yes
[2019-11-09] MEDS: cefTRIAXone 2 GM/50 ML BAG IVPB (14:03)
[2019-11-09] MEDS: Normal Saline Flush 10 ML SYR IVP (14:03)
--- NOTE | 2019-11-09 15:07 | PDOC.CMDIS ---
- If Service Date Differs Date of service: 11/09/19 Time of Service: 15:07 LACE Index Scoring Tool - Questions: Length of Stay (in days): 14 or more Acuity (Admit via E.D.?): No E.D. Visits: 2 - Answers: Total Score: 9 Risk of Readmission: Low Risk Care Management Discharge Reason for Hospitalization: IV abx, MSSA Bacteremia Discharge Plan: Dawit will return home with no additional services at this time. MARTINA provided him with a FWW, which PT will adjust for him. MARTINA also followed up with the 4WW order at [facility]. CM faxed additional information to [facility], as requested. [facility] will call him at home once the 4WW is in, and he will have to pick it up at their [facility] office. He will have outpatient PT, which he is happy about. His neice will pick him up and drive him home via private vehicle. He is happy to be returning home. Patient/Family Education Needs: Review discharge instructions regarding activity levels and medications, discussion of self care needs and goals of care. Services Needed at Discharge: DME Agency ([facility], 4WW)
[2019-11-09] MEDS: Bacitracin 1 PACKET (15:32)
--- NOTE | 2019-11-13 18:00 | INDS_ITS ---
Date of service: 11/12/19 PT Notes Visit Reasons: MSSA BACTEREMIA,CDIFF,ILEUS Inpatient Physical Therapy Discharge Summary Dates: 11/13/2019 Dates of Service: 10/22/2019 through 11/09/2019 Referring Doctor: Ralph Brito MD PT Orders: PT CONSULT: Extended-stay weakness. Limited ability. Precautions: Fall. Standard. Activity as tolerated. Patient Profile/Admitting Diagnosis: Dawit converts back to swing bed level 1 as of 10/22/2019. Patient is a 74-year-old male who presented to the ED on 09/21/2019 via EMS with chief complaints of generalized weakness that started 2 days prior to admission that has resulted to a fall on his way to his bathroom in his apartment and a left abdominal discomfort. Patient is diagnosed with pneumonia with MSSA bacteremia, acute rhabdomyolysis, increased opponent, back pain with question of vertebral osteomyelitis or discitis, neck pain, transaminitis, and ambulatory dysfunction. Patient tested negative for COVID-19 on as of 09/14/2019 at 20 3:16 PM. Orders were sent in for physical therapy to address impairments and strength, balance, and activity tolerance. PMHX: Medical History (Updated 09/22/19 @ 10:34 by Shi Alonzo MD) Erectile dysfunction (Inactive) Surgical History (Updated 09/22/19 @ 10:32 by Shi Alonzo MD) S/P left inguinal hernia repair (Acute) Social History/Home Situation: Patient lives alone on the second floor of an apartment building with no steps to enter. He uses an elevator to reach the entrance of his apartment. He is independent with all activities of daily living not requiring any assistive ambulatory device nor adaptive equipment. He still drives. His passed 3 years ago and he has been seeing a counselor to manage his grief. Equipment Owned/DME: Patient states that his used a walker and a cane which can both be available to him if needed. Subjective: Dawit looks forward to going home today and could not wait until his OP appointment on December 01 with DENIS Nichole. Objective: General Observation: IV access in right UE. Genu varum. Mental Status: Alert and oriented as to person place and time Pain: None reported. ROM: Neck: Rotation to L about 50 degrees. Rotation to R about 50 degrees. Lateral flexion to L abut 35 degrees. Lateral flexion to R about 35 degrees. Right Upper Extremity: Shoulder Flexion WFL. Shoulder abduction WFL. Elbow flexion WFL. Wrist flexion WFL. Opening and closing of hand WFL. Left Upper Extremity: Shoulder Flexion WFL. Shoulder abduction WFL. Elbow flexion WFL. Wrist flexion WFL. Opening and closing of hand WFL. Right Lower Extremity: Hip flexion WFL. Hip abduction WFL. Knee flexion WFL. Ankle dorsiflexion WFL. Ankle plantarflexion WFL. Left Lower Extremity: Hip flexion WFL. Hip abduction WFL. Knee flexion WFL. Ankle dorsiflexion WFL. Ankle plantarflexion WFL. Strength: Right Upper Extremity: Shoulder flexors 4/5. Shoulder abductors 4/5. Elbow flexors 4/5. Elbow extensors 4/5. Child Welfare Manager strong. Left Upper Extremity: Shoulder flexors 4/5. Shoulder abductors 4/5. Elbow flexors 4/5. Elbow extensors 4/5. Child Welfare Manager strong. Right Lower Extremity: Hip flexors 4/5. Hip abductors 4/5. Knee flexors 5/5. Knee extensors 4/5. Ankle dorsiflexors 4/5. Ankle plantarflexors 4-/5. Left Lower Extremity:Hip flexors 4/5. Hip abductors 4/5. Knee flexors 5/5. Knee extensors 4/5. Ankle dorsiflexors 4/5. Ankle plantarflexors 4-/5. Sensation: Intact as to pain and pressure on bilateral lower extremities. BED MOBILITY/TRANSFERS Sit-stand: Modified independent using B UE for support, requires FWW Stand-sit: Modified independent using B UE for support Bed-Chair: Modified independent using B UE for support, requires FWW Chair-bed: Modified independent using B UE for support, requires FWW GAIT Assistive Device: No AD. Weight bearing: FWB Assist: Supervision over level surface. SBA over uneven surfaces. Distance: 780 feet of level surface. 150 feet of slow upsloping paved pathway. 15 feet of downsloping paved pathway. 50 feet of grassed path. 50 feet of dirt path. Deviation: No LOB. Chayo increased. No SOB. Balance: Static Sitting: Normal Dynamic Sitting: Normal Static Standing: Good Dynamic Standing: Fair 4 stage balance test: Patient was able to maintain feet together for 10 seconds but is not able to hold self up for the semi-tandem, full tandem, as well as 1 legged stance indicating due to genu vara. Tinetti Balance test: Patient scored 27/28 indicating low risk for falls at this time. Patient was advised to use FWW for all outdoor ambulation for safety. Informed Consent/Education: Patient instructed in purpose of PT consult and continued plan of care via swing bed status. Assessment: Dawit has demosntrated marked improvements in terms of strength, balance awareness/skills, and mobility level within about a week after he recovered from a diagnosis of small bowel obstruction that he incurred while on SB1 care level in this hospital for management of MSSA bacteremia. He has met all of his goals listed below except for independent ambulation over uneven srufaces using no assistive device. he will continue to benefit from skilled services to progress ambulation skills and balance. Patient was given written exercises for continued open chain strengthening exercises using 4 pound AW while waiting for OP appointment in November 2019. Goals: Goals: Goals X1 week 1. Sit-Stand independent MET. GOAL DISCHARGED OF 10/29/2019. 2. Stand-Sit independent MET. GOAL DISCHARGED OF 10/29/2019. 3. Bed-Chair independent MET. GOAL DISCHARGED OF 10/29/2019. 4. Chair-Bed independent MET. GOAL DISCHARGED OF 10/29/2019. 5. Independent gait on level surface with use of least restrictive device for at least 800 feet without report of pain nor dyspnea MET. GOAL DISCHARGED OF TODAY, 11/05/2019. 6. Independent stair negotiation while holding onto bilateral rails for at least 10 steps without report of pain nor dyspnea NOT MET. CONTINUE. MET as of 11/09/2019. 7. Independent with home exercise program MET. CONTINUE WITH EX PROGRESSION TRAINING. 8. Good static and dynamic standing balance/tolerance MET. UPGRADED as of 10/29/2019 TO: Normal static and dynamic standing balance/tolerance NOT MET. CONTINUE. 9. NEW GOAL as of 10/29/2019: Patient will demonstrate independent ambulation over paved, gravel, grass, dirt paths without an assistive device. NOT MET as of 11/09 2019. DISCHARGE RECOMMENDATIONS: Outpatient PT for continued progression with advance level balance exercises as needed. TREATMENT CODE/TIME: 20497 x 30 minutes beginning at 2:30 PM. Thank you very much for this referral. Ariane Poe PT, DPT, CLT [facility] Inpatient PT at [facility]
== END 2019-11-09 16:07 | disposition home or self-care (01) | DRG 872 ==
PROVIDERS: Nurse Practitioner Acute Care; Surgery; Admitting Provider Internal Medicine; PCP Nurse Practitioner Family; Visit Provider Internal Medicine
DX: R78.81 Bacteremia (principal); A04.72 Enterocolitis due to Clostridium difficile, not specified as recurrent; B95.61 Methicillin susceptible Staphylococcus aureus infection as the cause of diseases classified elsewhere; Z79.2 Long term (current) use of antibiotics; M46.46 Discitis, unspecified, lumbar region; D50.0 Iron deficiency anemia secondary to blood loss (chronic); L51.9 Erythema multiforme, unspecified; T36.1X5A Adverse effect of cephalosporins and other beta-lactam antibiotics, initial encounter; I10 Essential (primary) hypertension; Z88.0 Allergy status to penicillin; R19.5 Other fecal abnormalities; Z45.2 Encounter for adjustment and management of vascular access device
CPT/HCPCS: 80048; 80053; 82550; 84145; 85027; 85652; 97110; 97112; 97162; 97165; 97530; 97535; 99306; 99309; 99316; NC; 83540; 83550; 83735; 85025; 85610; 85730; 86140; 87324; J0690; J1450; J1756; J2704; J2930; J3475; J3490

== ENCOUNTER 2019-10-29 10:12 | Day surgery (SDC) | payer MEDICARE, SELFPAY ==
--- NOTE | 2019-10-29 10:30 | BOWEL_PTH ---
PATIENT: Willy Hanson LOC: [facility] U#:[id number] AGE/SX: 74/M ROOM: RE10/29/[address]: Abena Mckeon : 1945 BED: DIS: 10/29/2019 SPEC #: [id number] RECD: 10/29/19 13:04 STATUS: [facility] #: [id number] SUSU: 10/29/19 10:[address]: Abena Mckeon DEPT: Surgical Specimen RECD BY: Harleen Lorenzo ENTERED: 10/29/19 13:05 SP TYPE: Bowel OTHR DR: Kai Peter Tissues: 1 - BIOPSY BOWEL 2 - STOMACH BIOPSY 3 - STOMACH BIOPSY 4 - ESOPHAGUS BIOPSY 5 - ESOPHAGUS BIOPSY 6 - BIOPSY BOWEL 7 - BIOPSY BOWEL 8 - BIOPSY BOWEL Procedures: GROSS AND MICRO LEVEL 4 SPECIAL STAIN 1 Comments: [id number]
--- NOTE | 2019-10-29 11:04 | ENDO_ITS ---
Date of service: 10/29/19 Time of Service: 11:05 Endoscopy Report DATE OF PROCEDURE: 10/29/19 PRE-OP DIAGNOSIS: anemia/perisitent diarrhea/ hx of gastric ulcers POST-OP DIAGNOSIS: other (hiatal hernia/esophageal candidasis/diverticula ) PROCEDURE: egd w/ bx ce w/ bx SURGEON: Abena Mckeon ANESTHESIA: MAC ESTIMATED BLOOD LOSS: 1 PATHOLOGY: other COMPLICATIONS: None DISPOSITION: PACU INDICATIONS: see above PREP: Miralax/Dulcolax COLONOSCOPY RETRACTION TIME: 10 mins PROCEDURE DESCRIPTION: After informed consent was obtained the patient was taken to the procedure room and placed in a supine position. Monitors were applied and a time out was done. The patients name, date of , procedure type, allergies to medications and metal in their body was reviewed. A bite block was placed and the patient was sedated. Once sedated and comfortable the gastroscope was advanced through the oropharynx which was grossly normal into the esophagus. The proximal esoph was nl. From the mid esophagus adn down there is moderate yeast and esophagitis- w/ erthyma and edema. There are no erosions. Biopsies taken. Tissue is sent for culture as well. The scope was advanced into the stomach and through the pylorus into the 3rd portion of the duodenum. The duodenum was noted to be nl. Biopsies were done -all specimen is retrieved and no bleeding is noted. the scope was retracted back into the stomach and biopsies were done to rule out H. pylori. There were no ulcers or gastritis. The scope was retroflexed. The cardia and fundus were noted to be normal. There small a hiatal hernia noted. The scope was retracted back into the esophagus and biopsies were done of the GE junction to rule out Delgado's. The Z line was irregular/displaced. Scopes are exchanged. After informed consent was obtained the patient was taken to the procedure room and placed in a left decubitous position. Monitors were applied and a time out was done. The patients name, date of , procedure, allergies to medications and metal in their body was reviewed. The patient was then sedated. Once sedated and comfortable a rectal exam was done. External exam was normal. Internal exam revealed a normal sphincter tone and no palpable masses. The prostate nl . The scope was then introduced and retrofelexed. no internal hemorrhoids were identified. The scope was then advanced to the cecum w/out difficulty. The TI and appendiceal orifice were identified. The prep was good. The scope was then slowly retracted over 10 minutes back into the rectum. Polyps were removed at none. There is mild diverticula noted in the sigmoid colon. There is no signs of active bleeding or infection. Biopsies taken at the cecum the t ransverse colon and in the rectum. All specimens are retrieved and no bleeding is noted. The colon looks frankly normal. The scope was removed and the patient was woken up and taken back to [facility] in stable condition. The patient tolerated the procedure well and there were no immediate complications.
== END 2019-10-29 16:00 | disposition swing bed (61) ==
LOC: SUR 10:12
PROVIDERS: PCP Nurse Practitioner Family; Visit Provider Surgery
PROC: (CPT 45380; principal; 2019-10-29 09:00)
DX: D50.0 Iron deficiency anemia secondary to blood loss (chronic) (principal); R19.5 Other fecal abnormalities; R19.7 Diarrhea, unspecified; Z87.11 Personal history of peptic ulcer disease; K31.89 Other diseases of stomach and duodenum; K44.9 Diaphragmatic hernia without obstruction or gangrene; B37.81 Candidal esophagitis; K57.30 Diverticulosis of large intestine without perforation or abscess without bleeding
CPT/HCPCS: 45380; 43239; 87102; 87206; 88305; 88312; J2704

== ENCOUNTER 2019-12-11 09:38 | Outpatient (REF) | payer MEDICARE, SELFPAY ==
[2019-12-11 19:00] LABS: HCT 30.1 % (40.0-50.0); HGB 9.6 g/dL (13.5-17.5); Mean Corp. HGB Concentration 31.9 g/dL (32.0-36.0); Mean Corpuscular Hemoglobin 30.6 pg (27.0-33.0); Mean Corpuscular Volume 95.9 fL (80-95); Mean Platelet Volume 9.8 fL (8.0-11.0); Platelet Count 247 x1000/uL (130-400); RBC 3.14 m/cumm (4.50-6.00); White Blood Cell Count 4.75 k/cumm (4.4-10.8)
[2019-12-11 19:36] LABS: Anion Gap 7.2 mmol/L (3-11); BUN 21 mg/dL (7-18); CO2 27.8 mmol/L (21.0-32.0); CREATININE 1.38 mg/dL (0.70-1.30); Calcium 9.3 mg/dL (8.5-10.1); Chloride 105 mmol/L (98-107); Glucose 103 mg/dL (74-106); Potassium 4.6 mmol/L (3.5-5.1); Sodium 140 mmol/L (136-145); Vitamin B12 416 pg/mL (193-986)
== END 2019-12-11 09:58 ==
LOC: NCHCN 09:38
PROVIDERS: PCP Nurse Practitioner Family; Visit Provider Nurse Practitioner Family
DX: D53.9 Nutritional anemia, unspecified (principal); R73.03 Prediabetes; I10 Essential (primary) hypertension
CPT/HCPCS: 80048; 85027; 82607

== ENCOUNTER 2020-01-07 22:50 | Outpatient (REF) | payer MEDICARE, SELFPAY ==
[2020-01-07 19:42] LABS: Abs Immature Grans 0.01 10^3/uL (0.0-0.06); Absolute Basophil Count 0.05 10^3/uL (0.0-0.2); Absolute Eosinophil Count 0.05 10^3/uL (0.0-0.7); Absolute Lymphocyte Count 1.01 10^3/uL (1.2-3.4); Absolute Monocyte Count 0.43 10^3/uL (0.1-0.8); Absolute Neutrophil Count 3.21 10^3/uL (1.2-6.7); Basophils % 1.1; Eosinophils % 1.1; HCT 32.2 % (40.0-50.0); HGB 10.2 g/dL (13.5-17.5); Immature Grans % 0.2; Lymphocytes % 21.2; MCH 30.3 pg (27.0-33.0); MCHC 31.7 % (32.0-36.0); MCV 95.5 fL (80-95); Neutrophils % 67.4; Nucleated RBC 0 %; Platelet Count 212 10^3/uL (130-400); RBC 3.37 10^6/uL (4.36-5.78); RDW 12.4 % (11.8-14.1); RDW-SD 43.2 fL; WBC 4.76 10^3/uL (4.4-10.8)
[2020-01-07 19:49] LABS: Anion Gap 7.5 mmol/L (3-11); BUN 30 mg/dL (7-18); CO2 27.5 mmol/L (21.0-32.0); CREATININE 1.37 mg/dL (0.70-1.30); Calcium 9.7 mg/dL (8.5-10.1); Chloride 106 mmol/L (98-107); Estimated GFR 50.52 (mL/min/1.73m2); Glucose 100 mg/dL (74-106); Potassium 4.5 mmol/L (3.5-5.1); Sodium 141 mmol/L (136-145)
== END 2020-01-07 23:10 ==
LOC: NCHCN 22:50
PROVIDERS: PCP Nurse Practitioner Family; Visit Provider Nurse Practitioner Family
DX: I10 Essential (primary) hypertension (principal); D53.9 Nutritional anemia, unspecified; R63.4 Abnormal weight loss
CPT/HCPCS: 80048; 85025

== ENCOUNTER 2020-02-22 01:55 | Outpatient (CLI) | payer MEDICARE, SELFPAY ==
--- NOTE | 2020-02-22 | DI.MRI_ITS ---
EXAM: MR BRAIN WO CLINICAL HISTORY: LOSS OF TASTE,R43.2,POST TRAUMATIC HEADACHE,G44.309. TECHNIQUE: Multiplanar multisequence MRI of the brain was performed. CONTRAST MATERIAL: Noncontrast COMPARISON: MR MR BRAIN WO from 05/18/2019 MR MR BRAIN WO from 09/24/2019 FINDINGS: VENTRICLES AND EXTRA AXIAL SPACES: Normal in size and morphology for the patient's age. Mild atrophy . HEMORRHAGE: None. CEREBRAL PARENCHYMA: No focus of restricted diffusion to suggest acute infarct. No significant white matter changes. No space-occupying lesion identified. MIDLINE SHIFT: None. BRAINSTEM/CEREBELLUM: Normal. CALVARIUM: Normal. VISUALIZED PARANASAL SINUSES/MASTOIDS: Clear. Vascular flow voids: Intact. IMPRESSION: Unremarkable MRI of the brain. DATA REPOSITORY:
--- NOTE | 2020-02-22 | DI.MRI_ITS ---
EXAM: MR LUMBAR SPINE WO/W CLINICAL HISTORY: LUMBAR DISCITIS,M48.46. TECHNIQUE: Multiplanar multisequence MRI was performed. COMPARISON: MR MR LUMBAR SPINE WO/W from 09/23/2019 FINDINGS: Nerve root sheath cysts are noted at S2. There is no evidence of compression fracture. Multilevel d egenerative disc changes and facet degenerative changes are noted. Mild central canal stenosis is se en from L2-3 through L5-S1. Multilevel neural foraminal narrowing is again noted. There is no evide nce of a disc herniation. There is no evidence of epidural abscess or paraspinal abscess. There is enhancement in the vertebral endplates at the L1-2, L2-3 and L3-4 levels which likely reflect degener ative changes. Comparison with the previous exam is difficult due to motion artifact on the previous exam. IMPRESSION: Mild enhancement in the marrow adjacent to areas of degenerative disc change. There are no findings to suggest discitis or osteomyelitis. DATA REPOSITORY:
[2020-02-22] MEDS: Normal Saline Flush 10 ML SYR IVP (12:28)
[2020-02-22] MEDS: Gadoterate meglumine 20 ML VIAL 15 ML IVP (12:29)
== END 2020-02-22 02:15 ==
PROVIDERS: PCP Nurse Practitioner Family; Visit Provider Nurse Practitioner Family
DX: R43.2 Parageusia (principal); G44.309 Post-traumatic headache, unspecified, not intractable; M47.816 Spondylosis without myelopathy or radiculopathy, lumbar region; M48.061 Spinal stenosis, lumbar region without neurogenic claudication; G96.8 Other specified disorders of central nervous system
CPT/HCPCS: 72158; 70551

== ENCOUNTER → 2020-03-01 07:43 | Outpatient (BNVA) | payer MEDICARE, SELFPAY | PROVIDERS: PCP Nurse Practitioner Family; Referring Provider Nurse Practitioner Family; Visit Provider Urology | DX: N40.1 Benign prostatic hyperplasia with lower urinary tract symptoms (principal); R33.8 Other retention of urine | CPT/HCPCS: 99213 ==

== ENCOUNTER 2020-04-05 00:51 | Outpatient (CLI) | payer MEDICARE, SELFPAY ==
--- NOTE | 2020-04-05 | DI.US_ITS ---
EXAM: US BREAST LT LIMITED CLINICAL HISTORY: LT BREAST PAIN TECHNIQUE: Ultrasound right breast performed using standard protocol. COMPARISON: No exams were available for comparison FINDINGS: Hypoechoic avascular area in the retroareolar region of the left breast is noted. This area measures 1.7 x 0.6 cm. A similar but smaller area is seen in the retroareolar region of the right breast. S uspicious solid or cystic masses are seen sonographically. IMPRESSION: Hypoechoic avascular areas in the retroareolar region bilaterally left greater than right. The findi ngs are most suggestive of gynecomastia. BI-RADS Category 2 - Benign Findings DATA REPOSITORY:
== END 2020-04-05 01:11 ==
PROVIDERS: PCP Nurse Practitioner Family; Visit Provider Nurse Practitioner Family
DX: N64.4 Mastodynia (principal); R92.8 Other abnormal and inconclusive findings on diagnostic imaging of breast; I10 Essential (primary) hypertension; R43.2 Parageusia; D53.9 Nutritional anemia, unspecified
CPT/HCPCS: 36415; 76642; 80048; 85027; 82607; 82746

== ENCOUNTER 2020-04-05 02:29 | Outpatient (CLI) | payer MEDICARE, SELFPAY ==
[2020-04-05 10:44] LABS: HCT 29.7 % (40.0-50.0); HGB 9.7 g/dL (13.5-17.5); MCH 30.9 pg (27.0-33.0); MCHC 32.7 % (32.0-36.0); MCV 94.6 fL (80-95); MPV 9.3 fL (8.0-11.0); Platelet Count 176 10^3/uL (130-400); RBC 3.14 10^6/uL (4.36-5.78); RDW 12.5 % (11.8-14.1); RDW-SD 43.2 fL; WBC 4.06 10^3/uL (4.4-10.8)
[2020-04-05 12:24] LABS: Anion Gap 4.5 mmol/L (3-11); BUN 20 mg/dL (7-18); CO2 31.5 mmol/L (21.0-32.0); CREATININE 1.25 mg/dL (0.70-1.30); Calcium 9.3 mg/dL (8.5-10.1); Chloride 106 mmol/L (98-107); Estimated GFR 56.16 (mL/min/1.73m2); Folate > 20.0 ng/mL (8.6-20.0); Glucose 101 mg/dL (74-106); Potassium 4.4 mmol/L (3.5-5.1); Sodium 142 mmol/L (136-145); Vitamin B12 542 pg/mL (193-986)
== END 2020-04-05 02:49 ==
PROVIDERS: PCP Nurse Practitioner Family; Visit Provider Nurse Practitioner Family
DX: I10 Essential (primary) hypertension (principal); R43.2 Parageusia; D53.9 Nutritional anemia, unspecified
CPT/HCPCS: 36415; 80048; 85027; 82175; 82300; 82607; 82746; 83655; 83825

== ENCOUNTER 2020-04-06 02:51 | Outpatient (CLI) | payer MEDICARE, SELFPAY ==
[2020-04-07 16:47] LABS: Arsenic <1 ng/mL (<13); Cadmium 0.3 ng/mL (<5.0); Mercury 2 ng/mL (<10); Submitting Laboratory Phone 802-748-7458; Venous/Capillary Venous
== END 2020-04-06 03:11 ==
PROVIDERS: PCP Nurse Practitioner Family; Visit Provider Nurse Practitioner Family
DX: R43.2 Parageusia (principal); I10 Essential (primary) hypertension
CPT/HCPCS: 82175; 82300; 83655; 83825

== ENCOUNTER → 2020-06-06 12:27 | Outpatient (BNVA) | payer MEDICARE, SELFPAY | PROVIDERS: PCP Nurse Practitioner Family; Referring Provider Nurse Practitioner Family; Visit Provider Urology | DX: N40.1 Benign prostatic hyperplasia with lower urinary tract symptoms (principal); R33.8 Other retention of urine; Z79.899 Other long term (current) drug therapy | CPT/HCPCS: 99215 ==

== ENCOUNTER 2020-08-08 08:56 | Outpatient (REF) | payer MEDICARE, SELFPAY ==
[2020-08-08 15:15] LABS: HCT 32.6 % (40.0-50.0); HGB 10.6 g/dL (13.5-17.5); MCH 30.9 pg (27.0-33.0); MCHC 32.5 % (32.0-36.0); MPV 9.3 fL (8.0-11.0); Platelet Count 198 10^3/uL (130-400); RBC 3.43 10^6/uL (4.36-5.78); RDW 12.2 % (11.8-14.1); RDW-SD 42.6 fL; WBC 3.74 10^3/uL (4.4-10.8)
[2020-08-08 15:27] LABS: Anion Gap 5.9 mmol/L (3-11); BUN 16 mg/dL (7-18); CO2 29.1 mmol/L (21.0-32.0); CREATININE 1.1 mg/dL (0.70-1.30); Calcium 9.1 mg/dL (8.5-10.1); Chloride 109 mmol/L (98-107); Glucose 89 mg/dL (74-106); Potassium 4.4 mmol/L (3.5-5.1); Sodium 144 mmol/L (136-145)
[2020-08-08 21:38] LABS: ESR 8 mm/hr (<or=20)
== END 2020-08-08 08:57 | disposition home or self-care (01) ==
LOC: NCHCN 08:56
PROVIDERS: PCP Nurse Practitioner Family; Visit Provider Nurse Practitioner Family
DX: D53.9 Nutritional anemia, unspecified (principal); I10 Essential (primary) hypertension; R43.2 Parageusia
CPT/HCPCS: 80048; 85027; 85652

== ENCOUNTER → 2020-09-06 12:32 | Outpatient (BNVA) | payer MEDICARE, SELFPAY | PROVIDERS: PCP Nurse Practitioner Family; Referring Provider Nurse Practitioner Family; Visit Provider Urology | DX: N40.1 Benign prostatic hyperplasia with lower urinary tract symptoms (principal); R33.8 Other retention of urine | CPT/HCPCS: 99213 ==

== ENCOUNTER 2020-12-06 10:28 | Outpatient (REF) | payer MEDICARE, OTHER, SELFPAY | END 2020-12-06 10:29 | disposition home or self-care (01) | LOC: NCHCN 10:28 | PROVIDERS: PCP Nurse Practitioner Family; Visit Provider Nurse Practitioner | DX: K59.00 Constipation, unspecified (principal); E07.9 Disorder of thyroid, unspecified | CPT/HCPCS: 84443 ==

== ENCOUNTER 2020-12-20 10:08 | Outpatient (REF) | payer MEDICARE, OTHER, SELFPAY ==
[2020-12-26 13:39] LABS: IgA 129 mg/dL (85-499); Interpretation (See Note); Tissue Transglutaminase IgA <1.2 U/mL (<4.0)
== END 2020-12-20 10:09 | disposition home or self-care (01) ==
LOC: NCHCN 10:08
PROVIDERS: PCP Nurse Practitioner Family; Visit Provider Nurse Practitioner
DX: K59.00 Constipation, unspecified (principal); D53.9 Nutritional anemia, unspecified
CPT/HCPCS: 82784; 83516

== ENCOUNTER 2021-01-06 16:15 | Emergency (ER) | payer MEDICARE, OTHER, SELFPAY ==
[2021-01-06] VITALS (10 sets, daily range): BP systolic 143–156; BP diastolic 61–87; PULSE 70–81; RESP 17; TEMP 37.4; O2SAT 95–98
--- NOTE | 2021-01-06 16:30 | RT.EKG_ITS ---
APPROVED REPORT Exam: Resting ECG Reason for Exam: abd pain Patient Location: E HR:68 bpm ECG Measurements Heart Rate 68 AXIS AZ 173 P 72 QRSd 91 QRS 65 QT 392 T 52 QTc 417 Conclusion Sinus rhythm...normal P axis, V-rate 60- 99
--- NOTE | 2021-01-06 16:30 | DI.CT_ITS ---
Exam(s) CT ABDOMEN PELVIS W EXAM: CT ABDOMEN PELVIS W CLINICAL HISTORY: lower abdominal pain x1 mo. TECHNIQUE: Imaging Protocol: Axial computed tomography images with coronal and sagittal reformatted images were created and reviewed CONTRAST MATERIAL: Intravenous: Omnipaque 100cc Oral: None COMPARISON: CT CT ABDOMEN PELVIS WO from 10/15/2019 FINDINGS: VISUALIZED LUNG BASES: Somewhat improved appearance of the lung bases but not yet cleared. No pleura l effusions.. ABDOMEN: There is no ascites. Previously present small bowel obstruction resolved. Presently no bowel obstru ction evident. LIVER: There are no new significant focal hepatic lesions evident . GALLBLADDER/BILIARY: Gallbladder surgically absent. CBD is not dilated. PANCREAS: No evidence of pancreatic mass nor dilatation of the pancreatic duct. SPLEEN: Spleen is not enlarged. No obvious intrasplenic lesions. Splenic and portal veins are paten t. ADRENALS: There are no significant adrenal masses. KIDNEYS:Parapelvic cysts bilaterally again noted. No solid renal masses. No calculi nor hydronephro sis.. ABDOMINAL AORTA: Abdominal aorta is not enlarged. LYMPH NODES:There is no retroperitineal nor paraaortic adenopathy. ABDOMINAL WALL: Left inguinal hernia noted. This was previously present and the amount of fluid ther ein has decreased. GI: There is no evidence of bowel obstruction, free air, nor abscess. PELVIS: GI: No evidence of appendicitis.Extensive sigmoid diverticulosis. No obvious acute diverticulitis. LYMPH NODES: There is no intrapelvic nor inguinal adenopathy. REPRODUCTIVE: Enlarged prostate again noted. No adenopathy. URINARY BLADDER: Not distended. No obvious mass. No calculi therein. OSSEOUS: No significant osseous lesions. 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 IMPRESSION: 1. Extensive sigmoid diverticulosis. No obvious acute diverticulitis. Please note that a subtle divine e of diverticulitis can be missed here given the extensive involvement of the sigmoid. 2. Previously present small bowel obstruction has resolved. 3. Decrease in size of small left inguinal hernia containing a small amount of fluid. This has not y et resolved. 4. Gallbladder surgically absent. The biliary tree is not dilated. Enlarged prostate gland. No obvious adenopathy. RADIATION DOSE DELIVERED: 792.86mGy.cm Total DLP DATA REPOSITORY: All CT scans at this facility are submitted to the National Radiology Data Registry (NRDR) Dose Index Registry (DIR) with the [employer] (ACR). RADIATION OPTIMIZATION: All CT scans at this facility use at least one of these dose optimization te chniques: automated exposure control; mA and/or kV adjustment per patient size (includes targeted exa ms where dose is matched to clinical indication); or iterative reconstruction.
--- NOTE | 2021-01-06 16:43 | W.ED.GENAD ---
Discharge Plan Disposition Patient Disposition: HOME Condition: Good Discharge Details Clinical Impression: Left inguinal hernia, Abdominal pain Primary Care Provider: Renée Bailey ED Provider: Harleen Olivo Home Meds and New Rx's Prescriptions: Continued lisinopril 2.5 mg tablet 2.5 mg PO DAILY RF: 0 (DME) vacuum erection device system kit See Dose Instructions .ROUTE .MEDSUPPLY Qty: 1 RF: 0 simvastatin 10 MG tablet 10 mg PO DAILY RF: 0 levothyroxine [Synthroid] 25 MCG tablet 25 mcg PO DAILY RF: 0 tamsulosin 0.4 MG capsule 0.4 mg PO BID RF: 0 finasteride [Proscar] 5 MG tablet 5 mg PO DAILY RF: 0 Discharge Instructions Instructions: Abdominal Pain (ED) Additional Instructions: Please follow-up with primary care physician next week try discontinuing the colace for a few days have 5 prunes daily warm compresses and massage to abdomen return with fever, worsening pain, or with any new or worsening complaints Discharge Data Discharge Date/Time-TO BE ENTERED AT DEPARTURE: 01/06/21 19:04 Medical Decision Making Evidence of diverticulitis, diverticulosis noted, will not treat for diverticulitis afebrile nontoxic without any inflammatory signs or symptoms on CT scan per virtual radiology interpretation in my review Easily reducible left inguinal hernia with evidence of static bowel containing Will refer to surgery No nausea or vomiting, relatively benign abdominal exam, only ordered CT scan secondary to age Current outpatient follow-up with primary care physician Reportedly had a colonoscopy last year which not show acute abnormality Asymptomatic at rest, able to tolerate p.o. Mild anemia, actually improved when compared to prior lab Lab Data Lab results reviewed: Yes I reviewed the patient's lab results. ECG Data Prior ECG tracings: available for review HPI General Mode of arrival: ambulatory. Date/Time Provider Initiated Documentation: 01/06/21 16:23. Limitations to Documentation: no limitations. Information obtained by: patient. HPI Narrative: this Very pleasant 75 male with history of ileus, small bowel obstruction, anemia, toxic metabolic encephalopathy, left inguinal hernia, PSVT presents with reported abdominal pain for the past several months. He states is worsened in the past month. He denies any nausea or vomiting. He states he has had decreased bowel movements but did have a bowel movement just prior to arrival. He denies any urinary complaints. He denies fever or chills. He denies any blood in stool. He denies any new medications or pain medications that he takes at home. He denies known exacerbating or alleviating factors. He describes the pain is intermittent and sharp. Denies chest pain or shortness of breath. Related Data Home Medications Medication Instructions Recorded Confirmed finasteride [Proscar] 5 mg PO DAILY 07/25/17 01/06/21 levothyroxine [Synthroid] 25 mcg PO DAILY 07/25/17 01/06/21 simvastatin 10 mg PO DAILY 07/25/17 01/06/21 tamsulosin 0.4 mg PO BID 07/25/17 01/06/21 vacuum erection device system #1 each 03/28/18 06/06/20 lisinopril 2.5 mg tablet 2.5 mg PO DAILY 06/06/20 01/06/21 Previous Rx's Medication Instructions Recorded vacuum erection device system #1 each 03/28/18 Allergies Allergy/AdvReac Type Severity Reaction Status Date / Time Penicillins Allergy Mild Skin Rash Unverified 01/06/21 16:24 cefazolin Allergy Skin Rash Unverified 01/06/21 16:24 aspirin AdvReac Mild GI Bleeding Unverified 01/06/21 16:24 General Stated Complaint: Abd Prob ERICKA: 3 Review of Systems All systems reviewed & are unremarkable except as noted in HPI and below PFSH Medical History (Updated 01/06/21 @ 18:50 by CARLEEN Anthony) Anemia of chronic disease BPH (benign prostatic hyperplasia) Conductive hearing loss Dehydration Epidural abscess (~10/09/13) Erectile dysfunction History of Clostridioides difficile colitis (~10/2013) History of small bowel obstruction (07/12/15) MSSA (methicillin susceptible Staphylococcus aureus) septicemia (10/09/13) in setting of ruputured appendicitis and found to have disciitis epidural abscess, [facility], [place], [place]; Dr. Casey Mixon, infectious disease Osteomyelitis of vertebra of thoracolumbar region (~10/09/13) treated w/ 6 weeks of Ancef; seen by Dr. Casey Mixon, infectious disease, [facility], [place], [place]; completed treatment 11/20/2013; complicated by C. difficile colitis Panic anxiety syndrome SBO (small bowel obstruction) Sensorineural hearing loss Surgical History H/O sinus surgery History of bilateral cataract extraction History of cholecystectomy (~1998) History of tonsillectomy and adenoidectomy S/P laparoscopic appendectomy (10/09/13) S/P left inguinal hernia repair Social History Smoking/Tobacco Use Status: Former Tobacco Use Smoking risk assessment performed?: Yes Alcohol Intake: never Drug use: Never Substance use type: does not use Do you feel safe at home: Yes Do you feel safe in your relationship?: Yes Exam Const General: cooperative, comfortable and no acute distress Eyes Pupils: PERRL Chest Chest: normal inspection of the chest Resp Effort & Inspection: normal respiratory effort Auscultation: clear to auscultation bilaterally Cardio Rate: regular rate Rhythm: regular rhythm GI Inspection: normal to inspection Other: Mild suprapubic tenderness, no rebound or guarding Other: Mild left easily reducible inguinal hernia, nontender Skin General skin exam: no rashes or lesions noted Neuro General: patient alert and patient oriented x3 Extrem Other: Distal pulses intact Course Vital Signs Vital signs: Vital Signs Temperature 37.4 C 01/06/21 16:19 Pulse 78 01/06/21 16:19 Respiratory Rate 17 01/06/21 16:19 Blood Pressure 156/62 H 01/06/21 16:19 Pulse Oximetry 96 01/06/21 16:19 Temperature 37.4 C 01/06/21 16:19 Temperature Source Temporal Artery Scan 01/06/21 16:19 Pulse 78 01/06/21 16:19 Respiratory Rate 17 01/06/21 16:19 Respiratory Effort Non-Labored 01/06/21 16:25 Blood Pressure 156/62 H 01/06/21 16:19 Blood Pressure Position Sitting 01/06/21 16:19 Pulse Oximetry 96 01/06/21 16:19 Oxygen Delivery Method Room Air 01/06/21 16:19 Oxygen Flow Rate 0 01/06/21 16:19 Pain Level 0 01/06/21 16:19
[2021-01-06] MEDS: Normal Saline 1,000 ML 500 ML IV (17:08)
[2021-01-06 17:13] LABS: Abs Immature Grans 0.02 10^3/uL (0.0-0.06); Absolute Basophil Count 0.04 10^3/uL (0.0-0.2); Absolute Eosinophil Count 0.03 10^3/uL (0.0-0.7); Absolute Lymphocyte Count 1.23 10^3/uL (1.2-3.4); Absolute Monocyte Count 0.53 10^3/uL (0.1-0.8); Absolute Neutrophil Count 3.59 10^3/uL (1.2-6.7); Basophils % 0.7; Eosinophils % 0.6; HCT 34.5 % (40.0-50.0); HGB 11.3 g/dL (13.5-17.5); Immature Grans % 0.4; Lymphocytes % 22.6; MCH 31.3 pg (27.0-33.0); MCHC 32.8 % (32.0-36.0); MCV 95.6 fL (80-95); MPV 9.5 fL (8.0-11.0); Monocytes % 9.7; Nucleated RBC 0 %; Platelet Count 170 10^3/uL (130-400); RBC 3.61 10^6/uL (4.36-5.78); RDW 12.2 % (11.8-14.1); RDW-SD 42.5 fL; WBC 5.44 10^3/uL (4.4-10.8)
[2021-01-06 17:17] LABS: Bilirubin Negative (Negative); Blood Negative (Negative); Clarity Clear (Clear); Glucose Negative (Negative); Ketones Negative (Negative); Leukocyte Esterase Negative (Negative); Nitrite Negative (Negative); Urobilinogen 0.2 EU/dL (Up TO 0.2); pH 7.5 (5-8)
[2021-01-06 17:20] LABS: ALT 31 U/L (16-63); AST 23 U/L (15-37); Albumin 4.2 g/dL (3.4-5.0); Alkaline Phosphatase 102 U/L (46-116); Anion Gap 4.3 mmol/L (3-11); BUN 21 mg/dL (7-18); CO2 29.7 mmol/L (21.0-32.0); CREATININE 1.2 mg/dL (0.70-1.30); Calcium 9.3 mg/dL (8.5-10.1); Chloride 108 mmol/L (98-107); Estimated GFR 58.71 (mL/min/1.73m2); Glucose 102 mg/dL (74-106); Lipase 188 U/L (73-393); Potassium 4.6 mmol/L (3.5-5.1); Sodium 142 mmol/L (136-145); Total Protein 7.4 g/dL (6.4-8.2)
[2021-01-06] MEDS: Normal Saline - Diluent 50 ML VIAL IV (17:55)
[2021-01-06] MEDS: Omnipaque 350 MG/ML 100 ML BTL IJ (17:55)
--- NOTE | 2021-01-06 18:36 | DI.VRAD_ITS ---
PROCEDURE INFORMATION: Exam: CT Abdomen And Pelvis With Contrast Exam date and time: 01/06/2021 4:40 PM Age: 75 years old Clinical indication: Other: Lower abdominal pain x1 mo TECHNIQUE: Imaging protocol: Computed tomography of the abdomen and pelvis with contrast. Radiation optimization: All CT scans at this facility use at least one of these dose optimization techniques: automated exposure control; mA and/or kV adjustment per patient size (includes targeted exams where dose is matched to clinical indication); or iterative reconstruction. Contrast material: OMNIPAQUE 350; Contrast volume: 100 ml; Contrast route: INTRAVENOUS (IV); COMPARISON: CT ABDOMEN PELVIS WO 10/15/2019 4:06 PM FINDINGS: Lungs: The prior basilar airspace opacities have nearly resolved with scattered regions of mild tree-in-bud opacities within the lung bases suggesting mild bronchiolitis/infectious small airways disease. Liver: There is a tiny cyst within the right hepatic lobe. There is mild periportal edema within the liver, likely related to hydration status. Gallbladder and bile ducts: There has been a cholecystectomy. There is no biliary ductal dilatation. Pancreas: The pancreas is mildly atrophic, but otherwise appears unremarkable without focal lesion or evidence of acute inflammation. Spleen: Normal. No splenomegaly. Adrenal glands: Normal. No mass. Kidneys and ureters: Again noted are bilateral parapelvic renal cysts. No renal or ureteral stones are identified. There is no hydronephrosis or hydroureter. Stomach and bowel: Again noted is sigmoid diverticulosis without evidence for acute diverticulitis. The prior findings small-bowel obstruction have resolved. Appendix: Findings suggest prior appendectomy. Intraperitoneal space: The prior ascites has resolved. No free intraperitoneal air is identified. Vasculature: Unremarkable. No abdominal aortic aneurysm. Lymph nodes: Unremarkable. No enlarged lymph nodes. Urinary bladder: No bladder stones are identified. Reproductive: Again noted is a mildly enlarged prostate, stable. Bones/joints: Again noted is multilevel moderate spondylosis and hyperostosis throughout the lower thoracic and lumbar spine. No acute fractures are identified. Soft tissues: Again noted is a small left inguinal hernia which appears decreased in size since prior study containing a small amount of fluid and measuring approximately 2.2 x 1.4 cm in axial dimensions and 6 cm in craniocaudal dimension. IMPRESSION: 1. Sigmoid diverticulosis without evidence of acute diverticulitis. 2. Interval resolution of the prior findings of small bowel obstruction. 3. Decrease in size of small left inguinal hernia containing small amount of fluid. Dictated and Authenticated by: James Sargent MD. Ordering:SHERINE Canseco MD
== END 2021-01-06 19:04 | disposition home or self-care (01) ==
PROVIDERS: Emergency Provider Physician Assistant; PCP Nurse Practitioner
DX: K40.90 Unilateral inguinal hernia, without obstruction or gangrene, not specified as recurrent (principal); R10.9 Unspecified abdominal pain; D64.9 Anemia, unspecified
CPT/HCPCS: 36415; 80053; 83690; 93005; 96360; 96361; 99285; 74177; 81003; 85025; 93010; 99284; J3490

== ENCOUNTER → 2021-03-07 09:38 | Outpatient (BNVA) | payer MEDICARE, OTHER, SELFPAY | PROVIDERS: PCP Nurse Practitioner; Referring Provider Nurse Practitioner Family; Visit Provider Urology | DX: N40.1 Benign prostatic hyperplasia with lower urinary tract symptoms (principal); R33.8 Other retention of urine; Z79.899 Other long term (current) drug therapy | CPT/HCPCS: 81003; 99213 ==

== ENCOUNTER 2021-03-20 15:14 | Outpatient (REF) | payer MEDICARE, OTHER, SELFPAY ==
[2021-03-20 16:24] LABS: Calculated LDL 55 mg/dL (<100); Cholesterol 144 mg/dL (<200); HDL Cholesterol 78 mg/dL (40-60); Triglyceride 55 mg/dL (<150)
[2021-03-20 16:41] LABS: Iron 80 ug/dL (65-175); Total Iron Binding Capacity 239 ug/dL (250-450); Transferrin Sat 33 % (20-55)
== END 2021-03-20 15:15 | disposition home or self-care (01) ==
LOC: NCHCN 15:14
PROVIDERS: PCP Nurse Practitioner; Visit Provider Nurse Practitioner
DX: E78.5 Hyperlipidemia, unspecified (principal); D53.9 Nutritional anemia, unspecified
CPT/HCPCS: 80061; 83540; 83550

== ENCOUNTER 2021-05-04 05:13 | Emergency (ER) | payer MEDICARE, OTHER, SELFPAY ==
[2021-05-04 05:10] VITALS: BP 183/66; PULSE 99; RESP 18; TEMP 36.8; O2SAT 94
--- NOTE | 2021-05-04 05:15 | DI.CT_ITS ---
Exam(s) CT ABDOMEN PELVIS WO EXAM: CT ABDOMEN PELVIS WO CLINICAL HISTORY: suprapubic abdominal pain for 1 week. TECHNIQUE: Imaging Protocol: Axial computed tomography images with coronal and sagittal reformatted images were created and reviewed CONTRAST MATERIAL: Intravenous: none Oral: None COMPARISON: CT CT ABDOMEN PELVIS W from 01/06/2021 FINDINGS: VISUALIZED LUNG BASES: Mild increased markings in the right lung base posterior basal segment right l ower lobe. No pleural effusions.. ABDOMEN: There is no ascites. LIVER: There are no obvious focal hepatic lesions evident of this noninfused study. GALLBLADDER/BILIARY: Not seen. May be surgically absent. There are no surgical clips in the gallbla dder fossa region. CBD is not dilated. PANCREAS: No evidence of pancreatic mass nor dilatation of the pancreatic duct. SPLEEN: Spleen is not enlarged. No obvious intrasplenic lesions. ADRENALS: There are no significant adrenal masses. KIDNEYS:Small parapelvic cysts both kidneys. No solid renal masses. No calculi nor hydronephrosis. . ABDOMINAL AORTA: Abdominal aorta is not enlarged. LYMPH NODES: There is no retroperitoneal nor paraaortic adenopathy. ABDOMINAL WALL: Streaking in the left internal inguinal ring area. Also some fluid in the left ingui nal canal, these findings unchanged from 01/06/2021. GI: There is no evidence of bowel obstruction, free air, nor abscess. PELVIS: LYMPH NODES: There is no intrapelvic nor inguinal adenopathy. GI: No evidence of appendicitis.Sigmoid diverticulosis. No obvious acute diverticulitis. URINARY BLADDER: No calculi nor obvious masses evident REPRODUCTIVE: Prostate mildly enlarged. No obturator adenopathy evident. OSSEOUS: No significant osseous lesions. 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 Associated smooth erosion of the sacral canal is again noted. No breakthrough into the presacral region. IMPRESSION: 1. There is fat stranding and some fluid in the left internal inguinal ring and left inguinal canal, possibly related to previous surgery and unchanged from 01/06/2021. Is no bowel transition point at this level. No bowel obstruction. 2. Extensive sigmoid diverticulosis again noted. No obvious acute diverticulitis. 3. Gallbladder is not seen and presumed to be surgically absent. No obvious dilatation of the biliar y tree. Enlarged prostate again noted. RADIATION DOSE DELIVERED: 737.25mGy.cm Total DLP DATA REPOSITORY: All CT scans at this facility are submitted to the National Radiology Data Registry (NRDR) Dose Index Registry (DIR) with the [employer] (A[employer]). RADIATION OPTIMIZATION: All CT scans at this facility use at least one of these dose optimization te chniques: automated exposure control; mA and/or kV adjustment per patient size (includes targeted exa ms where dose is matched to clinical indication); or iterative reconstruction.
--- NOTE | 2021-05-04 05:29 | ED.GENADUL_ITS ---
Discharge Plan Disposition Patient Disposition: HOME Condition: Good Discharge Details Clinical Impression: Suprapubic pressure, Difficulty in urination Primary Care Provider: Renée Bailey ED Provider: Walker Hartley Home Meds and New Rx's Prescriptions: Continued lisinopril 2.5 mg tablet 2.5 mg PO DAILY RF: 0 (DME) vacuum erection device system kit See Dose Instructions .ROUTE .MEDSUPPLY Qty: 1 RF: 0 simvastatin 10 MG tablet 10 mg PO DAILY RF: 0 levothyroxine [Synthroid] 25 MCG tablet 25 mcg PO DAILY RF: 0 tamsulosin 0.4 MG capsule 0.4 mg PO BID RF: 0 finasteride [Proscar] 5 MG tablet 5 mg PO DAILY RF: 0 Discharge Instructions Additional Instructions: At this time your CAT scan is negative for any significant abnormalities. You do have an enlarged prostate and only partial emptying of your bladder, however thankfully you are still able to pass urine. As we discussed together you would like to hold off on a Hansen catheter for the time being. You are currently maximally treated with medications for your prostate. Please follow-up closely with Dr. Gao of urology for further discussion of potential surgical interventions in the future. If you notice any worsening of your symptoms, or any new symptoms such as vomiting, diarrhea, fever, chills, shortness of breath, chest pain, numbness, weakness, or fainting , please return immediately to the emergency department for reevaluation. Please follow up with your primary care provider as soon as possible for reassessment and reevaluation. As always, it was a pleasure participating in your medical care today. Referrals: Edmond Gao MD [ [facility] STAFF PHYSICIAN] - Renée Bailey [Primary Care Provider] - Medical Decision Making Patient is a 75-year-old male with a past medical history of cholecystectomy, tonsillectomy, appendectomy, prostatic hypertrophy, high cholesterol, hypertension, who presents today for evaluation of suprapubic abdominal pain and urinary difficulty. Patient states that for the last week he has had mild pain in the suprapubic area, describes it as ach. And then over the last 24 to 48 hours he has had decreased urinary output stating that his urine has transitioned into a small dribble. He denies any chest pain or shortness of breath. He denies any vomiting or diarrhea. No other complaints at this time. He denies any hematuria, hematochezia or melena. Physical exam demonstrates minimal suprapubic tenderness. Genital exam unremarkable and nontender. Bladder scan shows no evidence of distended bladder. Uncertain as to the cause of the pain, prostatitis seems unlikely. UTI is on the differential, mild colitis is on the differential. Due to the patient's age and risk factors will scan of the abdomen, gently rehydrate, monitor closely and reassess. 7 AM Laboratory work-up has returned stable, no evidence of infection or other significant abnormality. CT scan negative for acute process per virtual radiology. There is a small amount of fatty stranding noted at the internal ring of the left inguinal canal, however on exam there is no tenderness there whatsoever. No evidence of current herniation, strangulation or incarceration or other abnormality clinically. Plan to repeat exam patient is still able to pass urine, repeat abdominal exam shows no evidence of acute surgical abdomen. No genital abnormality. Patient does not want a Hansen catheter at this time. He states that he will follow up with Dr. Gao this week for discussion about other potential surgical options down the road. Discussed red flags which to return. I have extensively reviewed the treatment plan and discharge instructions with the patient. I have addressed all patient concerns at this time. The patient was made aware of what symptoms to monitor for that would warrant a return to the emergency department. Discussed the plan with the patient, they demonstrate verbal understanding and agreement with our assessment and plan at this time. The documentation in this chart was dictated using [employer] dictation software. Please excuse any dictation errors. FINDINGS: Liver: Normal. No mass. Gallbladder and bile ducts: Normal. No calcified stones. No ductal dilation. Pancreas: Normal. No ductal dilation. Spleen: Normal. No splenomegaly. Adrenal glands: Normal. No mass. Kidneys and ureters: Normal. No hydronephrosis. Stomach and bowel: See Soft tissues finding. Appendix: No evidence of appendicitis. Intraperitoneal space: Unremarkable. No free air. No significant fluid collection. Vasculature: Unremarkable. No abdominal aortic aneurysm. Lymph nodes: Unremarkable. No enlarged lymph nodes. Urinary bladder: Unremarkable as visualized. Reproductive: Unremarkable as visualized. Bones/joints: Unremarkable. No acute fracture. Soft tissues: Fatty stranding noted at the level of the internal ring of the left inguinal canal. This may reflect previous herniorrhaphy. No hernia noted. No adjacent diverticulitis. IMPRESSION: Fatty stranding noted at the level of the internal ring of the left inguinal canal. This may reflect previous herniorrhaphy. No hernia noted. No adjacent diverticulitis. Thank you for allowing us to participate in the care of your patient. Dictated and Authenticated by: Pool Pierson MD 05/04/2021 6:30 AM Eastern Time ([place] & [place]) HPI General Date/Time Provider Initiated Documentation: 05/04/21 05:25 . HPI Narrative: Patient is a 75-year-old male with a past medical history of cholecystectomy, tonsillectomy, appendectomy, prostatic hypertrophy, high cholesterol, hypertension, who presents today for evaluation of suprapubic abdominal pain and urinary difficulty. Patient states that for the last week he has had mild pain in the suprapubic area, describes it as ach. And then over the last 24 to 48 hours he has had decreased urinary output stating that his urine has transitioned into a small dribble. He denies any chest pain or shortness of breath. He denies any vomiting or diarrhea. No other complaints at this time. He denies any hematuria, hematochezia or melena. Related Data Home Medications Medication Instructions Recorded Confirmed finasteride [Proscar] 5 mg PO DAILY 07/25/17 05/04/21 levothyroxine [Synthroid] 25 mcg PO DAILY 07/25/17 05/04/21 simvastatin 10 mg PO DAILY 07/25/17 05/04/21 tamsulosin 0.4 mg PO BID 07/25/17 05/04/21 vacuum erection device system #1 each 03/28/18 05/04/21 lisinopril 2.5 mg tablet 2.5 mg PO DAILY 06/06/20 05/04/21 Previous Rx's Medication Instructions Recorded vacuum erection device system #1 each 03/28/18 Allergies Allergy/AdvReac Type Severity Reaction Status Date / Time Penicillins Allergy Mild Skin Rash Verified 05/04/21 05:29 cefazolin Allergy Skin Rash Verified 05/04/21 05:29 aspirin AdvReac Mild GI Bleeding Verified 05/04/21 05:29 General Stated Complaint: Urinary ERICKA: 3 Review of Systems All systems reviewed & are unremarkable except as noted in HPI and below [facility] Active Problem List (Updated 05/04/21 @ 07:03 by Walker Hartley DO) Suprapubic pressure (Acute) Difficulty in urination (Acute) Abdominal pain (Acute) Anemia, blood loss (Acute) Anemia (Chronic) Anemia of chronic disease (Acute) SBO (small bowel obstruction) (Acute) Acute confusion (Acute) Vomiting (Acute) Essential hypertension (Chronic) Constipation (Acute) Lumbar discitis (Acute) MSSA bacteremia (Acute) Urinary retention (Acute) BPH (benign prostatic hyperplasia) (Chronic) PSVT (paroxysmal supraventricular tachycardia) (Acute) Discharge planning issues (Acute) DVT prophylaxis (Acute) Ambulatory dysfunction (Acute) Neck pain (Acute) Back pain (Acute) Gram-positive cocci bacteremia (Acute) Left inguinal hernia (Chronic) Medical History (Updated 05/04/21 @ 07:03 by Walker Hartley DO) Conductive hearing loss Dehydration Epidural abscess (~10/09/13) Erectile dysfunction History of Clostridioides difficile colitis (~10/2013) History of small bowel obstruction (07/12/15) MSSA (methicillin susceptible Staphylococcus aureus) septicemia (10/09/13) in setting of ruputured appendicitis and found to have disciitis epidural abscess, [facility], [place], [place]; Dr. Casey Mixon, infectious disease Osteomyelitis of vertebra of thoracolumbar region (~10/09/13) treated w/ 6 weeks of Ancef; seen by Dr. Casey Mixon, infectious disease, [place], [place]; completed treatment 11/20/2013; complicated by C. difficile colitis Panic anxiety syndrome Sensorineural hearing loss Surgical History H/O sinus surgery History of bilateral cataract extraction History of cholecystectomy (~1998) History of tonsillectomy and adenoidectomy S/P laparoscopic appendectomy (10/09/13) S/P left inguinal hernia repair Social History Smoking/Tobacco Use Status: Former Tobacco Use Smoking risk assessment performed?: Yes Alcohol Intake: never Drug use: Never Substance use type: does not use Do you feel safe at home: Yes Do you feel safe in your relationship?: Yes Exam Narrative Exam Narrative: 1.Const: Well-nourished, Well-developed, appearing stated age 2.Eyes: PERRL, no conjunctival injection, and symmetrical lids. 3.ENT: Atraumatic external nose and ears. Moist MM. Neck: Symmetric, trachea midline, No thyromegaly. 4.CVS: +S1/S2, No murmurs or gallops. Peripheral pulses 2+ and equal in all extremities. Brisk capillary refill in all extremities. 5.RESP: Unlabored respiratory effort. Clear to auscultation bilaterally. No wheezes rales or rhonchi 6.GI: Soft, Nontender/Nondistended, No hepatosplenomegaly. No guarding or rebound. Minimal suprapubic tenderness. No tender hernias. No mid or upper abdominal tenderness. 7.MSK: Normocephalic/Atraumatic, Extremities w/o deformity or ttp No cyanosis or clubbing, Normal movement of all extremities 8.Skin: Warm, Dry. No rashes or lesions. 9.Neuro: medical collector II-XII grossly intact. Sensation grossly intact, no focal neurologic deficits. 10.Psych: (AAO) x3. Appropriate mood and affect Course Vital Signs Vital signs: Vital Signs Temperature 36.8 C 05/04/21 05:10 Pulse 99 H 05/04/21 05:10 Respiratory Rate 18 05/04/21 05:10 Blood Pressure 183/66 H 05/04/21 05:10 Pulse Oximetry 94 05/04/21 05:10 Temperature 36.8 C 05/04/21 05:10 Temperature Source Skin 05/04/21 05:10 Pulse 99 H 05/04/21 05:10 Respiratory Rate 18 05/04/21 05:10 Respiratory Effort Non-Labored 05/04/21 05:20 Blood Pressure 183/66 H 05/04/21 05:10 Pulse Oximetry 94 05/04/21 05:10 Pain Level 10 05/04/21 05:10
[2021-05-04 05:41] LABS: Abs Immature Grans 0.01 10^3/uL (0.0-0.06); Absolute Basophil Count 0.03 10^3/uL (0.0-0.2); Absolute Eosinophil Count 0.04 10^3/uL (0.0-0.7); Absolute Lymphocyte Count 1.14 10^3/uL (1.2-3.4); Absolute Monocyte Count 0.36 10^3/uL (0.1-0.8); Absolute Neutrophil Count 2.47 10^3/uL (1.2-6.7); Basophils % 0.7; HCT 33.3 % (40.0-50.0); HGB 10.6 g/dL (13.5-17.5); Immature Grans % 0.2; Lymphocytes % 28.1; MCH 31.2 pg (27.0-33.0); MCHC 31.8 % (32.0-36.0); MCV 97.9 fL (80-95); MPV 9.9 fL (8.0-11.0); Monocytes % 8.9; Neutrophils % 61.1; Nucleated RBC 0 %; Platelet Count 158 10^3/uL (130-400); RDW 12.6 % (11.8-14.1); RDW-SD 45.5 fL; WBC 4.05 10^3/uL (4.4-10.8)
[2021-05-04 05:58] LABS: ALT 27 U/L (16-63); AST 18 U/L (15-37); Albumin 3.8 g/dL (3.4-5.0); Alkaline Phosphatase 78 U/L (46-116); Anion Gap 6.6 mmol/L (3-11); BUN 25 mg/dL (7-18); Bilirubin, Total 0.9 mg/dL (0.2-1.0); CO2 29.4 mmol/L (21.0-32.0); CREATININE 1.2 mg/dL (0.70-1.30); Calcium 9.4 mg/dL (8.5-10.1); Chloride 109 mmol/L (98-107); Estimated GFR 58.71 (mL/min/1.73m2); Glucose 102 mg/dL (74-106); Potassium 4.1 mmol/L (3.5-5.1); Sodium 145 mmol/L (136-145); Total Protein 6.9 g/dL (6.4-8.2)
[2021-05-04] MEDS: Normal Saline 500 ML IV (06:01)
[2021-05-04 06:15] LABS: Bilirubin Negative (Negative); Blood Negative (Negative); Clarity Clear (Clear); Glucose Negative (Negative); Ketones Negative (Negative); Leukocyte Esterase Negative (Negative); Nitrite Negative (Negative); Specific Gravity >= 1.030 (1.005-1.025); Urobilinogen 0.2 EU/dL (Up TO 0.2)
--- NOTE | 2021-05-04 06:30 | DI.VRAD_ITS ---
PROCEDURE INFORMATION: Exam: CT Abdomen And Pelvis Without Contrast Exam date and time: 05/04/2021 5:27 AM Age: 75 years old Clinical indication: Other: Suprapubic abdominal pain for 1 week TECHNIQUE: Imaging protocol: Computed tomography of the abdomen and pelvis without contrast. COMPARISON: CT ABDOMEN PELVIS W 01/06/2021 5:49 PM FINDINGS: Liver: Normal. No mass. Gallbladder and bile ducts: Normal. No calcified stones. No ductal dilation. Pancreas: Normal. No ductal dilation. Spleen: Normal. No splenomegaly. Adrenal glands: Normal. No mass. Kidneys and ureters: Normal. No hydronephrosis. Stomach and bowel: See Soft tissues finding. Appendix: No evidence of appendicitis. Intraperitoneal space: Unremarkable. No free air. No significant fluid collection. Vasculature: Unremarkable. No abdominal aortic aneurysm. Lymph nodes: Unremarkable. No enlarged lymph nodes. Urinary bladder: Unremarkable as visualized. Reproductive: Unremarkable as visualized. Bones/joints: Unremarkable. No acute fracture. Soft tissues: Fatty stranding noted at the level of the internal ring of the left inguinal canal. This may reflect previous herniorrhaphy. No hernia noted. No adjacent diverticulitis. IMPRESSION: Fatty stranding noted at the level of the internal ring of the left inguinal canal. This may reflect previous herniorrhaphy. No hernia noted. No adjacent diverticulitis. Dictated and Authenticated by: Pool Pierson MD. Ordering:FEDERICO Cardoso MD
--- NOTE | 2021-05-04 06:56 | NUR.NOTE ---
Referral to Urology, Dr Gao for audrey. Urinary retention, no rodríguez was placed. Provider is hoping patient can be seen 05/05 or 05/08.Nursing Note:
== END 2021-05-04 07:19 | disposition home or self-care (01) ==
PROVIDERS: Emergency Provider Student in an Organized Health Care Education/Training Program; PCP Nurse Practitioner
DX: N40.1 Benign prostatic hyperplasia with lower urinary tract symptoms (principal); R39.198 Other difficulties with micturition; R10.30 Lower abdominal pain, unspecified; R39.14 Feeling of incomplete bladder emptying
CPT/HCPCS: 80053; 96360; 99284; 74176; 81003; 83605; 85025; 99283

== ENCOUNTER → 2021-05-05 09:42 | Outpatient (BNVA) | payer MEDICARE, OTHER, SELFPAY | PROVIDERS: PCP Nurse Practitioner; Referring Provider Nurse Practitioner; Visit Provider Urology | DX: R39.198 Other difficulties with micturition (principal) | CPT/HCPCS: 81003; 99213 ==

== ENCOUNTER → 2021-09-08 13:42 | Outpatient (BNVA) | payer MEDICARE, OTHER, SELFPAY | PROVIDERS: PCP Nurse Practitioner; Visit Provider Urology | DX: R39.14 Feeling of incomplete bladder emptying (principal); N40.1 Benign prostatic hyperplasia with lower urinary tract symptoms | CPT/HCPCS: 51798; 99214 ==

== ENCOUNTER 2021-11-06 08:11 | Outpatient (REF) | payer MEDICARE, OTHER, SELFPAY ==
[2021-11-06 14:39] LABS: HCT 35.8 % (40.0-50.0); HGB 12.1 g/dL (13.5-17.5); MCH 32.1 pg (27.0-33.0); MCHC 33.8 % (32.0-36.0); MCV 95 fL (80-95); MPV 10.6 fL (8.0-11.0); Platelet Count 163 10^3/uL (130-400); RBC 3.77 10^6/uL (4.36-5.78); RDW 12.2 % (11.8-14.1); RDW-SD 42.3 fL; WBC 3.58 10^3/uL (4.4-10.8)
[2021-11-06 15:30] LABS: Anion Gap 8.4 mmol/L (3-11); BUN 22 mg/dL (7-18); CO2 26.6 mmol/L (21.0-32.0); CREATININE 1.1 mg/dL (0.70-1.30); Calcium 9.5 mg/dL (8.5-10.1); Chloride 106 mmol/L (98-107); Glucose 114 mg/dL (74-106); Potassium 4.9 mmol/L (3.5-5.1); Sodium 141 mmol/L (136-145)
== END 2021-11-06 08:12 | disposition home or self-care (01) ==
LOC: NCHCN 08:11
PROVIDERS: PCP Nurse Practitioner; Visit Provider Nurse Practitioner Family
DX: I10 Essential (primary) hypertension (principal); D53.9 Nutritional anemia, unspecified
CPT/HCPCS: 80048; 85027

== ENCOUNTER 2021-12-12 14:08 | Inpatient (IN) | payer MEDICARE, OTHER, SELFPAY ==
[2021-12-12] VITALS (133 sets, daily range): BP systolic 99–126; BP diastolic 46–91; PULSE 59–100; RESP 18–20; TEMP 36.4–36.7; O2SAT 91–97
--- NOTE | 2021-12-12 15:00 | ED.GENADUL_ITS ---
Discharge Plan Disposition Patient Disposition: [facility] INPATIENT Condition: Stable Discharge Details Chief Complaint: ThroatFB Clinical Impression: COVID-19, Multifocal pneumonia, Acute kidney injury, Dehydration Primary Care Provider: Renée Bailey ED Provider: Macey Fraser Home Meds and New Rx's Prescriptions: No Action lisinopril 2.5 mg tablet 2.5 mg PO DAILY (DME) vacuum erection device system kit See Dose Instructions .ROUTE .MEDSUPPLY Qty: 1 0RF Dose Instruction: As directed Rx Instructions: As directed simvastatin 10 MG tablet 10 mg PO DAILY levothyroxine [Synthroid] 25 MCG tablet 25 mcg PO DAILY tamsulosin 0.4 MG capsule 0.4 mg PO BID finasteride [Proscar] 5 MG tablet 5 mg PO DAILY Medical Decision Making 1430 -- 76-year-old male with a history of hypertension, anemia, hypothyroidism, hyperlipidemia, BPH presents from home for cough, generalized weakness and difficulty swallowing pills over the last few days. Diagnosed with COVID today. Sent from [facility] for labs and imaging for concern for dysphagia to rule out potential mass. He also fell in the tub yesterday due to leg weakness and now complaining of back pain. Patient appears comfortable and nontoxic. Rectal temp 99.5. Normal appearing oropharynx. Lungs clear bilaterally. He has scattered areas of ecchymosis noted to his back with healing ecchymosis overlying his sacrum which may be a pressure wound. Moving all extremities without deformity. He is speaking in full sentences and swallowing his secretions without drooling. We will obtain screening labs and refer for imaging due to recent fall will obtain CT head to pelvis imaging including CT neck to rule out potential mass or obstruction. We will give a dose of IV Tylenol fluids and reassess. 1900 --labs and imaging reviewed. Normal white blood cell count. Hemoglobin 10. Bands 8, which appears chronic. Creatinine 2.3, was 1.1 last month. T bili 2.7, AST 153, ALT 107. He has no complaint of abdominal pain. Troponin negative. CT imaging reviewed and notes multifocal pneumonia. No acute findings on CT head, neck, T and L-spine. Will admit for multifocal pneumonia in the setting of generalized weakness and ALEXIA. Case discussed with hospitalist accepts patient for admission. Remdesivir ordered. May need further evaluation with surgery for difficulty swallowing, however could be in the setting of COVID so a dose of IV Decadron ordered. May need further evaluation of hyperbilirubinemia and transaminitis with consideration for gallbladder ultrasound. Medical Records Medical records reviewed: Yes I reviewed the patient's medical records. Imaging Data Radiologic Study: Radiologist's impression: CT Head Without Contrast Exam date and time: 12/12/2021 4:57 PM Age: 76 years old Clinical indication: Other: S/P fall, R/O intracranial injury, cerv FX , difficulty swallowing pills, R/O mass; Patient HX: S/P fall, R/O intracranial injury, cerv FX assess bones for FX; Additional info: S/P fall, R/O intracranial injury, cerv FX, difficulty swallowing pills, R/O mass, assess bones for FX TECHNIQUE: Imaging protocol: Computed tomography of the head without contrast. Radiation optimization: All CT scans at this facility use at least one of these dose optimization techniques: automated exposure control; mA and/or kV adjustment per patient size (includes targeted exams where dose is matched to clinical indication); or iterative reconstruction. COMPARISON: MR BRAIN WO 02/22/2020 9:51 AM FINDINGS: Brain: Normal. No hemorrhage. Unremarkable white matter. No mass effect. Cerebral ventricles: No ventriculomegaly. Paranasal sinuses: Visualized sinuses are unremarkable. No fluid levels. Mastoid air cells: Visualized mastoid air cells are well aerated. Bones/joints: Unremarkable. No acute fracture. Soft tissues: Unremarkable. IMPRESSION: No acute intracranial abnormality. CT Neck Without Contrast Exam date and time: 12/12/2021 4:57 PM Age: 76 years old Clinical indication: Other: S/P fall, R/O intracranial injury, cerv FX , difficulty swallowing pills, R/O mass; Patient HX: S/P fall, R/O intracranial injury, cerv FX assess bones for FX; Additional info: S/P fall, R/O intracranial injury, cerv FX, difficulty swallowing pills, R/O mass, assess bones for FX TECHNIQUE: Imaging protocol: Computed tomography of the neck without contrast. Radiation optimization: All CT scans at this facility use at least one of these dose optimization techniques: automated exposure control; mA and/or kV adjustment per patient size (includes targeted exams where dose is matched to clinical indication); or iterative reconstruction. COMPARISON: CT HEAD CERVICAL SPINE WO 10/12/2019 3:16 PM FINDINGS: Pharynx: Unremarkable. No significant tonsillar enlargement. Larynx: Unremarkable. Epiglottis is normal. Prevertebral and retropharyngeal spaces: Unremarkable. Salivary glands: Normal. Glands are normal in size. Thyroid: Normal. No enlarged or calcified nodules.? Lymph nodes: Unremarkable. No lymphadenopathy. Trachea: Visualized trachea is unremarkable. Lungs: Peripheral interstitial infiltrate in the visualized lungs with focal area of consolidation right upper lobe posteriorly. Pleural spaces: Small right pleural effusion. Bones/joints: Reversal of the normal cervical curve. 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 Ankylosis of the anterior C3 through C5 vertebral bodies. Ankylosis of the C3-C4 facet joints. Ankylosis of the visualized upper thoracic spine with prominent syndesmophytes. Advanced degenerative arthritis in the left C2-C3 facet joint. Mild narrowing of the central spinal canal the level of C4-C5 and C5-C6. Severe bilateral foraminal narrowing C4-C5. Severe right and moderate left foraminal narrowing C5-C6. Severe left and moderate right foraminal narrowing C6-C7. Soft tissues: Unremarkable. No significant soft tissue swelling. IMPRESSION: 1. Upper lung infiltrates, greater on the right with a small right pleural effusion 2. Advanced degenerative arthritis in the cervical spine.? No fracture identified CT Chest Without Contrast; Diagnostic Exam date and time: 12/12/2021 5:04 PM Age: 76 years old Clinical indication: Other: Cough, SOB, R/O pe pneumonia, rib FX; Other: Cough, SOB, R/O pe, pneumonia, rib FX TECHNIQUE: Imaging protocol: Diagnostic computed tomography of the chest without contrast. 3D rendering (Not supervised by radiologist): MIP and/or 3D reconstructed images were created by the technologist. Radiation optimization: All CT scans at this facility use at least one of these dose optimization techniques: automated exposure control; mA and/or kV adjustment per patient size (includes targeted exams where dose is matched to clinical indication); or iterative reconstruction. COMPARISON: CT HEAD NECK WO 12/12/2021 4:57 PM FINDINGS: Lungs: Subpleural increased interstitial pulmonary markings throughout the posterolateral upper lobes and posterior right lower lobe may be compatible with pulmonary fibrosis or atelectasis. Extensive patchy consolidation throughout the left lower lobe and within the posterior segment of the right upper lobe suspicious for multi lobar pneumonia. Pleural spaces: Small right pleural effusion. Heart: Mild pericardial effusion is new since prior. Mild atherosclerotic calcifications of the coronary arteries. No cardiomegaly. Lymph nodes: Unremarkable. No enlarged lymph nodes. Vasculature: Unremarkable. No aortic aneurysm.? 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 No acute fracture. Soft tissues: Unremarkable. IMPRESSION: 1. Extensive patchy consolidation throughout the left lower lobe and within the posterior segment of the right upper lobe suspicious for multi lobar pneumonia. 2. Small right pleural effusion. 3. Subpleural increased interstitial pulmonary markings throughout the posterolateral upper lobes and posterior right lower lobe may be compatible with pulmonary fibrosis or atelectasis. 4. Mild pericardial effusion is new since prior. CT Abdomen And Pelvis Without Contrast Exam date and time: 12/12/2021 5:04 PM Age: 76 years old Clinical indication: Other: Cough, SOB, R/O pe pneumonia, rib FX; Other: Cough, SOB, R/O pe, pneumonia, rib FX TECHNIQUE: Imaging protocol: Computed tomography of the abdomen and pelvis without contrast. 3D rendering (Not supervised by radiologist): MIP and/or 3D reconstructed images were created by the technologist. Radiation optimization: All CT scans at this facility use at least one of these dose optimization techniques: automated exposure control; mA and/or kV adjustment per patient size (includes targeted exams where dose is matched to clinical indication); or iterative reconstruction. COMPARISON: CT ABDOMEN PELVIS WO 05/04/2021 5:51 AM FINDINGS: Liver: Normal. No mass. Gallbladder and bile ducts:? The gallbladder is not visualized, most likely surgically removed. No ductal dilation. Pancreas: Normal. No ductal dilation. Spleen: Normal. No splenomegaly. Adrenal glands: Normal. No mass. Kidneys and ureters: Normal. No hydronephrosis. Stomach and bowel: Mild diverticulosis is present in the distal colon. No obstruction. No mucosal thickening. Appendix: No evidence of appendicitis. Intraperitoneal space: Unremarkable. No free air. No significant fluid collection. Vasculature: Unremarkable. No abdominal aortic aneurysm. Lymph nodes: Unremarkable. No enlarged lymph nodes. Urinary bladder: Unremarkable as visualized. Reproductive: Unremarkable as visualized. Bones/joints: Unremarkable. No acute fracture. Soft tissues: Unremarkable. IMPRESSION: No evidence of acute traumatic injury of the abdomen and pelvis. CT Thoracic Spine Without Contrast Exam date and time: 12/12/2021 5:04 PM Age: 76 years old Clinical indication: Other: S/P fall, R/O FX TECHNIQUE: Imaging protocol: Computed tomography of the thoracic spine without contrast. Radiation optimization: All CT scans at this facility use at least one of these dose optimization techniques: automated exposure control; mA and/or kV adjustment per patient size (includes targeted exams where dose is matched to clinical indication); or iterative reconstruction. COMPARISON: CT ABDOMEN PELVIS WO 05/04/2021 5:51 AM FINDINGS: Bones/joints: No evidence of acute osseous injury of the thoracic spine. The vertebral body heights are preserved. 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 Discs/Spinal canal/Neural foramina: No significant disc protrusion. No severe spinal canal stenosis. No significant neural foraminal narrowing. 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 Lungs: Bilateral fduy-[id number] bronchiectasis within the lower lobes. Extensive patchy consolidation throughout the left lower lobe and posterior right upper lobe suspicious for pneumonia. Subpleural increased interstitial pulmonary markings throughout the posterolateral upper lobes and right lower lobe may be compatible with fibrosis or atelectasis. Infectious process cannot be excluded. IMPRESSION: 1. No evidence of acute osseous injury of the thoracic spine. 2. Extensive patchy consolidation throughout the left lower lobe and posterior right upper lobe suspicious for pneumonia. 3. 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 4. 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 5. Bilateral hsqe-hz-hswzpeeo bronchiectasis within the lower lobes. 6. Subpleural increased interstitial pulmonary markings throughout the posterolateral upper lobes and right lower lobe may be compatible with fibrosis or atelectasis. Infectious process cannot be excluded. CT Lumbar Spine Without Contrast Exam date and time: 12/12/2021 5:04 PM Age: 76 years old Clinical indication: Other: S/P fall, R/O FX TECHNIQUE: Imaging protocol: Computed tomography of the lumbar spine without contrast. COMPARISON: MR LUMBAR SPINE WO/W 02/22/2020 10:15 AM FINDINGS: Bones/joints: No evidence of acute osseous injury of the lumbar spine. The vertebral body heights are preserved. Discs/Spinal canal/Neural foramina: Moderate to severe degenerative disc disease throughout the lumbar spine worse at L2-L3 and L4-L5. At L2-L3, there is diffuse disc bulging causing moderate canal stenosis, unchanged. Soft tissues: Unremarkable. IMPRESSION: 1. No evidence of acute osseous injury of the lumbar spine. 2. At L2-L3, there is diffuse disc bulging causing moderate canal stenosis, unchanged. Lab Data Lab results reviewed: Yes I reviewed the patient's lab results. Labs: Laboratory Tests Range/Units 12/12/21 12/12/21 15:05 15:05 WBC (4.4-10.8) 10^3/uL 9.13 RBC (4.36-5.78) 10^6/uL 3.14 L Hgb (13.5-17.5) g/dL 10.1 L Hct (40.0-50.0) % 29.6 L MCV (80-95) fL 94 MCH (27.0-33.0) pg 32.2 MCHC (32.0-36.0) % 34.1 RDW (11.8-14.1) % 12.5 Plt Count (130-400) 10^3/uL 130 MPV (8.0-11.0) fL 10.5 Immature Gran % See Differential Neutrophils % 79.0 Band Neutrophils % 8 Lymphocytes % 4.0 Atypical Lymphs % 1 Monocytes % 8.0 Eosinophils % 0.0 Basophils % 0.0 Nucleated RBC % (0.0-0.3) % 0.0 Absolute Neutrophils (1.2-6.7) 10^3/uL 7.94 H Absolute Lymphocytes (1.2-3.4) 10^3/uL 0.46 L Absolute Monocytes (0.1-0.8) 10^3/uL 0.73 Absolute Eosinophils (0.0-0.7) 10^3/uL 0.00 Absolute Basophils (0.0-0.2) 10^3/uL 0.00 RBC Morphology Normal Sodium (136-145) mmol/L 141 Potassium (3.5-5.1) mmol/L 4.4 Chloride (98-107) mmol/L 105 Carbon Dioxide (21.0-32.0) mmol/L 25.7 Anion Gap (3-11) mmol/L 10.3 BUN (7-18) mg/dL 63 H Creatinine (0.70-1.30) mg/dL 2.3 H Estimated GFR/1.73 m2 (mL/min/1.73m2) 27.64 Glucose (74-106) mg/dL 120 H Calcium (8.5-10.1) mg/dL 8.9 Magnesium (1.8-2.4) mg/dL 2.2 Total Bilirubin (0.2-1.0) mg/dL 2.7 H AST (15-37) U/L 153 H ALT (16-63) U/L 107 H Alkaline Phosphatase (46-116) U/L 85 Troponin I (<or=60) ng/L < 50 Total Protein (6.4-8.2) g/dL 6.6 Albumin (3.4-5.0) g/dL 3.3 L Lipase (73-393) U/L 111 ECG Data Attestation: I personally reviewed and interpreted this ECG (s) as follows: Interpretation: rate of 100, sinus, normal axis, no stemi. HPI General Mode of arrival: ambulatory . Date/Time Provider Initiated Documentation: 12/12/21 14:17 . Limitations to Documentation: no limitations . Information obtained by: patient . HPI Narrative: Patient is a 76-year-old male with a history of anemia of chronic disease, hypertension, hyperlipidemia, BPH, hypothyroidism, anxiety presents for cough, generalized weakness, feeling off balance and difficulty swallowing pills over the past few days. Patient states he found out he was positive for COVID today. He states he has felt fatigued, generally weak with a cough over the past 2 days. He states yesterday he was in the shower and his legs felt weak and he slipped and fell. He states he hit his back on the tub and is complaining of back and rib pain. He states he thinks he may have hit his head but denies any significant headache or loss of consciousness. Patient states he went to the [facility] today for his cough and difficulty swallowing pills. He states his cough has improved over the past few days. He denies any fever, sputum production, significant shortness of breath, abdominal pain, vomiting, diarrhea or urinary symptoms. Related Data Home Medications Medication Instructions Recorded Confirmed finasteride 5 mg tablet (Proscar) 5 mg PO DAILY 07/25/17 12/12/21 levothyroxine 25 mcg tablet 25 mcg PO DAILY 07/25/17 12/12/21 (Synthroid) simvastatin 10 mg tablet 10 mg PO DAILY 07/25/17 12/12/21 tamsulosin 0.4 mg capsule 0.4 mg PO BID 07/25/17 12/12/21 vacuum erection device system #1 ea 03/28/18 09/08/21 lisinopril 2.5 mg tablet 2.5 mg PO DAILY 06/06/20 12/12/21 Previous Rx's Medication Instructions Recorded vacuum erection device system #1 ea 03/28/18 Allergies Allergy/AdvReac Type Severity Reaction Status Date / Time Penicillins Allergy Mild Skin Rash Verified 12/12/21 12:16 cefazolin Allergy Skin Rash Verified 12/12/21 12:16 aspirin AdvReac Mild GI Bleeding Verified 12/12/21 12:16 General Stated Complaint: ThroatFB ERICKA: 3 Review of Systems All systems reviewed & are unremarkable except as noted in HPI and below Constitutional Constitutional: Denies chills, Denies excessive sweating, Reports fatigue, Denies fever(s), Reports weakness and Denies weight loss Eyes Eyes: Reports system reviewed and no additional complaints, except as documented and Denies blurry vision ENT Ears, Nose, Mouth, and Throat: Denies vertigo, Denies dizziness, Denies otalgia, Denies nasal congestion, Denies sore throat and Denies throat swelling Cardiovascular Cardiovascular: Denies chest pain, Denies syncope, Denies rapid heart rate and Denies dyspnea Respiratory Respiratory: Denies chest congestion, Reports cough, Denies pain on inspiration and Denies dyspnea Gastrointestinal Gastrointestinal: Denies abdominal pain, Denies diarrhea and Denies vomiting Genitourinary Genitourinary: Denies hematuria, Denies dysuria and Denies flank pain Musculoskeletal Musculoskeletal: Reports back pain and Denies joint swelling Integumentary/Breasts Skin/Breast: Denies lesions and Denies rash Neurologic Neurologic: Denies behavioral changes, Denies confusion, Denies vertigo, Denies dizziness, Denies syncope, Denies localized weakness and Reports weakness Psychiatric Psychiatric: Denies behavioral changes, Denies confusion and Denies depression Endocrine Endocrine: Denies excessive sweating and Reports fatigue Hematologic/Lymphatic Hematologic/Lymphatic: Denies easy bruising and Denies lymphadenopathy Allergic/Immunologic Allergic/Immunologic: Denies throat swelling PFSH All Active Problems (Updated 12/12/21 @ 19:08 by Macey Fraser DO) COVID-19 (Acute) Multifocal pneumonia (Acute) Acute kidney injury (Acute) Dehydration (Acute) Feeling of incomplete bladder emptying (Acute) Suprapubic pressure (Acute) Difficulty in urination (Acute) Abdominal pain (Acute) Anemia, blood loss (Acute) Anemia (Chronic) Anemia of chronic disease (Acute) SBO (small bowel obstruction) (Acute) Acute confusion (Acute) Vomiting (Acute) Essential hypertension (Chronic) Constipation (Acute) Lumbar discitis (Acute) MSSA bacteremia (Acute) Urinary retention (Acute) BPH (benign prostatic hyperplasia) (Chronic) PSVT (paroxysmal supraventricular tachycardia) (Acute) Discharge planning issues (Acute) DVT prophylaxis (Acute) Ambulatory dysfunction (Acute) Neck pain (Acute) Back pain (Acute) Gram-positive cocci bacteremia (Acute) Left inguinal hernia (Chronic) Medical History (Updated 12/12/21 @ 19:08 by Macey Fraser DO) Conductive hearing loss Dehydration Epidural abscess (~10/09/13) Erectile dysfunction History of Clostridioides difficile colitis (~10/2013) History of small bowel obstruction (07/12/15) MSSA (methicillin susceptible Staphylococcus aureus) septicemia (10/09/13) in setting of ruputured appendicitis and found to have disciitis epidural abscess, [facility], [place], [place]; Dr. Casey Mixon, infectious disease Osteomyelitis of vertebra of thoracolumbar region (~10/09/13) treated w/ 6 weeks of Ancef; seen by Dr. Casey Mixon, infectious disease, [place], [place]; completed treatment 11/20/2013; complicated by C. difficile colitis Panic anxiety syndrome Sensorineural hearing loss Surgical History H/O sinus surgery History of bilateral cataract extraction History of cholecystectomy (~1998) History of tonsillectomy and adenoidectomy S/P laparoscopic appendectomy (10/09/13) S/P left inguinal hernia repair Social History Smoking/Tobacco Use Status: Former Tobacco Use Smoking risk assessment performed?: Yes Alcohol Intake: never Drug use: Never Substance use type: does not use Do you feel safe at home: Yes Do you feel safe in your relationship?: Yes Exam Const General: cooperative and no acute distress Orientation: alert, awake and oriented x3 HENMT Head: normal to inspection Ears: hearing grossly normal bilaterally and external ears normal General nose exam: external nose normal Face and sinus: normal facial exam Mouth: oral mucosae normal Teeth and gingiva: dentition normal Throat: posterior oropharynx normal Eyes General: appearance normal, both eyes and all related structures Eyelids: eyelids normal Pupils: PERRL EOM: EOM intact bilaterally Neck Neck: normal visual inspection Lymphatic: no lymphadenopathy noted Chest Chest: normal inspection of the chest and normal palpation of entire chest wall Resp Effort & Inspection: normal respiratory effort and able to speak in complete sentences Auscultation: clear to auscultation bilaterally Cardio Rate: regular rate Rhythm: regular rhythm GI Inspection: normal to inspection and no abdominal wall ecchymosis Palpation: soft, not firm, no guarding, no hepatosplenomegaly, no masses and nontender Auscultation: normal bowel sounds Back/Spine/Pelvis Cervical Spine: No cervical spinal tenderness Thoracic/Lumbar Spine: thoracic spinal tenderness and lumbar spinal tenderness Other: Scattered areas of ecchymosis noted to the midline and lateral back. There is healing ecchymosis noted overlying the sacrum with tenderness to palpation. Skin General skin exam: no rashes or lesions noted Neuro General: patient alert and patient awake Cognition: normal cognition Speech: speech normal Gait: normal gait Motor: muscle tone normal throughout Sensory Exam: no sensory deficits noted Extrem General: normal to inspection, full ROM and capillary refill normal Other: Bilateral upper and lower extremities with normal range of motion without evidence of trauma. Psych Appearance: grossly normal Mental Status: mental status grossly normal Speech and Movement: speech and movement normal Affect: normal affect Thought Process: normal Course Vital Signs Vital signs: Vital Signs Temperature 98.1 F 12/12/21 14:16 Pulse 100 H 12/12/21 14:16 Respiratory Rate 18 12/12/21 14:16 Blood Pressure 112/91 H 12/12/21 14:16 Pulse Oximetry 94 12/12/21 14:16 Temperature 98.1 F 12/12/21 14:16 Temperature Source Skin 12/12/21 14:16 Pulse 100 H 12/12/21 14:16 Respiratory Rate 18 12/12/21 14:16 Respiratory Effort Non-Labored 12/12/21 14:20 Blood Pressure 112/91 H 12/12/21 14:16 Pulse Oximetry 94 12/12/21 14:16 Pain Level 0 12/12/21 14:16
--- NOTE | 2021-12-12 15:15 | RT.EKG_ITS ---
APPROVED REPORT Exam: Resting ECG Reason for Exam: dizziness Patient Location: E HR:84 bpm ECG Measurements Heart Rate 84 AXIS TN 157 P 64 QRSd 92 QRS 58 QT 366 T 54 QTc 433 Conclusion Sinus rhythm...normal P axis, V-rate 60- 99 Probable left atrial enlargement...P >50mS, <-0.10mV V1. Sinus. Normal axis. No STEMI. I have reviewed and interpreted ECG and agree with software generated interpretation.
--- NOTE | 2021-12-12 15:20 | DI.CT_ITS ---
Exam(s) CT CHEST/ABD/PEL WO CT THORACIC LUMBAR SPINE REC EXAM: CT CHEST/ABD/PEL WO CLINICAL HISTORY: cough, sob, r/o PE, pneumonia, rib fx. TECHNIQUE: Imaging Protocol: Axial computed tomography images with coronal and sagittal reformatted images were created and reviewed CONTRAST MATERIAL: Noncontrast COMPARISON: CT CT ABDOMEN PELVIS WO from 05/04/[address] THORACIC LUMBAR SPINE REC from 12/12/2021 FINDINGS: CHEST: There is a small right pleural effusion. There is a small pericardial effusion. The heart size is n ormal. The aorta is normal in diameter. Underlying fibrotic changes. There is an infiltrate in the posterior aspect of the right upper lobe. There is an additional infiltrate, larger in size involvi ng the left lower lobe. There are mild patchy densities at the right lung base, infiltrate versus co mpressive atelectasis. There is no pneumothorax. There are old right rib deformities. No acute spi nal fracture. Says dens of fight formation along the anterior thoracic spine.. ABDOMEN and pelvis: Patient is status post cholecystectomy. The liver, spleen, pancreas, kidneys and adrenals are unrema rkable. The aorta is normal in diameter. There is diverticulosis of the sigmoid colon but no eviden ce of diverticulitis. There is no gastric or small bowel distension. There is no free air or free f luid. The prostate is enlarged. The bladder is unremarkable. Degenerative changes are seen in the spine. No acute fractures are identified in the spine or pelvis.. IMPRESSION: 1. Left lower lobe infiltrate. Small infiltrate right upper lobe. Small right pleural effusion. S mall pericardial effusion. 2. No acute abnormality in the abdomen or pelvis. RADIATION DOSE DELIVERED: 1321.2 mGy.cm Total DLP DATA REPOSITORY: All CT scans at this facility are submitted to the National Radiology Data Registry (NRDR) Dose Index Registry (DIR) with the [employer] ([employer]). RADIATION OPTIMIZATION: All CT scans at this facility use at least one of these dose optimization te chniques: automated exposure control; mA and/or kV adjustment per patient size (includes targeted exa ms where dose is matched to clinical indication); or iterative reconstruction.
--- NOTE | 2021-12-12 15:20 | DI.CT_ITS ---
Exam(s) CT HEAD NECK WO EXAM: CT HEAD NECK WO CLINICAL HISTORY: s/p fall, r/o intracranial injury, cerv fx. TECHNIQUE: Imaging Protocol: Axial computed tomography images with coronal and sagittal reformatted images were created and reviewed COMPARISON: CT CT HEAD CERVICAL SPINE WO from 10/12/[address] HEAD - STROKE PROTOCOL from 10/15/2019 FINDINGS: Head CT Ventricles and Extra axial spaces: Normal in size and morphology for the patient's age. Hemorrhage: None. Cerebral parenchyma: Normal. Midline shift: None. Brainstem/Cerebellum: Normal. Calvarium: Normal. Visualized Paranasal sinuses/Mastoids: Clear. Cervical Spine CT BONES: Vertebral body heights are maintained. There is some reversal of the normal cervical lordosis at the C3 through C5 levels. There is no evidence of acute fracture. Degenerative disc changes and facet degenerative changes are seen, greatest at C3-4 and C4-5. Promin ent endplate osteophytes are present. . SOFT TISSUES: No paraspinal hematoma. The airway appears intact. No pneumothorax is seen at the lung apices. There is a small right pleural effusion as well as an in filtrate seen in the right upper lobe. There are underlying fibrotic changes. IMPRESSION: Head CT: No acute abnormality. C-spine CT: Degenerative changes, no acute abnormality of the cervical spine. Right upper lobe infil trate. Small right pleural effusion. RADIATION DOSE DELIVERED: 1,271.35mGy.cm Total DLP DATA REPOSITORY: All CT scans at this facility are submitted to the National Radiology Data Registry (NRDR) Dose Index Registry (DIR) with the [employer] ([employer]). RADIATION OPTIMIZATION: All CT scans at this facility use at least one of these dose optimization te chniques: automated exposure control; mA and/or kV adjustment per patient size (includes targeted exa ms where dose is matched to clinical indication); or iterative reconstruction.
[2021-12-12 15:24] LABS: HCT 29.6 % (40.0-50.0); HGB 10.1 g/dL (13.5-17.5); MCH 32.2 pg (27.0-33.0); MCHC 34.1 % (32.0-36.0); MCV 94 fL (80-95); MPV 10.5 fL (8.0-11.0); Platelet Count 130 10^3/uL (130-400); RBC 3.14 10^6/uL (4.36-5.78); RDW 12.5 % (11.8-14.1); RDW-SD 43.3 fL; WBC 9.13 10^3/uL (4.4-10.8)
[2021-12-12] MEDS: ACETAMINOPHEN 1,000 MG/100 ML BTL 400 MG IVPB (15:30)
[2021-12-12] MEDS: Normal Saline 250 ML 500 ML IV (15:40)
[2021-12-12 15:43] LABS: ALT 107 U/L (16-63); AST 153 U/L (15-37); Albumin 3.3 g/dL (3.4-5.0); Alkaline Phosphatase 85 U/L (46-116); Anion Gap 10.3 mmol/L (3-11); BUN 63 mg/dL (7-18); Bilirubin, Total 2.7 mg/dL (0.2-1.0); CO2 25.7 mmol/L (21.0-32.0); CREATININE 2.3 mg/dL (0.70-1.30); Calcium 8.9 mg/dL (8.5-10.1); Chloride 105 mmol/L (98-107); Estimated GFR 27.64 (mL/min/1.73m2); Glucose 120 mg/dL (74-106); Lipase 111 U/L (73-393); Magnesium 2.2 mg/dL (1.8-2.4); Potassium 4.4 mmol/L (3.5-5.1); Sodium 141 mmol/L (136-145); Total Protein 6.6 g/dL (6.4-8.2); Troponin I < 50 ng/L (<or=60)
[2021-12-12 16:05] LABS: Absolute Lymphocyte Count 0.46 10^3/uL (1.2-3.4); Absolute Monocyte Count 0.73 10^3/uL (0.1-0.8); Absolute Neutrophil Count 7.94 10^3/uL (1.2-6.7); Atypical Lymphocytes % 1; Bands % 8
[2021-12-12 16:06] LABS: Diff Comment Manual Differential; RBC Morphology Normal
--- NOTE | 2021-12-12 17:57 | DI.VRAD_ITS ---
PROCEDURE INFORMATION: Exam: CT Head Without Contrast Exam date and time: 12/12/2021 4:57 PM Age: 76 years old Clinical indication: Other: S/P fall, R/O intracranial injury, cerv FX , difficulty swallowing pills, R/O mass; Patient HX: S/P fall, R/O intracranial injury, cerv FX assess bones for FX; Additional info: S/P fall, R/O intracranial injury, cerv FX, difficulty swallowing pills, R/O mass, assess bones for FX TECHNIQUE: Imaging protocol: Computed tomography of the head without contrast. Radiation optimization: All CT scans at this facility use at least one of these dose optimization techniques: automated exposure control; mA and/or kV adjustment per patient size (includes targeted exams where dose is matched to clinical indication); or iterative reconstruction. COMPARISON: MR BRAIN WO 02/22/2020 9:51 AM FINDINGS: Brain: Normal. No hemorrhage. Unremarkable white matter. No mass effect. Cerebral ventricles: No ventriculomegaly. Paranasal sinuses: Visualized sinuses are unremarkable. No fluid levels. Mastoid air cells: Visualized mastoid air cells are well aerated. Bones/joints: Unremarkable. No acute fracture. Soft tissues: Unremarkable. IMPRESSION: No acute intracranial abnormality. PROCEDURE INFORMATION: Exam: CT Neck Without Contrast Exam date and time: 12/12/2021 4:57 PM Age: 76 years old Clinical indication: Other: S/P fall, R/O intracranial injury, cerv FX , difficulty swallowing pills, R/O mass; Patient HX: S/P fall, R/O intracranial injury, cerv FX assess bones for FX; Additional info: S/P fall, R/O intracranial injury, cerv FX, difficulty swallowing pills, R/O mass, assess bones for FX TECHNIQUE: Imaging protocol: Computed tomography of the neck without contrast. Radiation optimization: All CT scans at this facility use at least one of these dose optimization techniques: automated exposure control; mA and/or kV adjustment per patient size (includes targeted exams where dose is matched to clinical indication); or iterative reconstruction. COMPARISON: CT HEAD CERVICAL SPINE WO 10/12/2019 3:16 PM FINDINGS: Pharynx: Unremarkable. No significant tonsillar enlargement. Larynx: Unremarkable. Epiglottis is normal. Prevertebral and retropharyngeal spaces: Unremarkable. Salivary glands: Normal. Glands are normal in size. Thyroid: Normal. No enlarged or calcified nodules. Lymph nodes: Unremarkable. No lymphadenopathy. Trachea: Visualized trachea is unremarkable. Lungs: Peripheral interstitial infiltrate in the visualized lungs with focal area of consolidation right upper lobe posteriorly. Pleural spaces: Small right pleural effusion. Bones/joints: Reversal of the normal cervical curve. 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 Ankylosis of the anterior C3 through C5 vertebral bodies. Ankylosis of the C3-C4 facet joints. Ankylosis of the visualized upper thoracic spine with prominent syndesmophytes. Advanced degenerative arthritis in the left C2-C3 facet joint. Mild narrowing of the central spinal canal the level of C4-C5 and C5-C6. Severe bilateral foraminal narrowing C4-C5. Severe right and moderate left foraminal narrowing C5-C6. Severe left and moderate right foraminal narrowing C6-C7. Soft tissues: Unremarkable. No significant soft tissue swelling. IMPRESSION: 1. Upper lung infiltrates, greater on the right with a small right pleural effusion 2. 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 No fracture identified Dictated and Authenticated by: Clarita Welch MD. Ordering:HOLLY Choudhury MD
--- NOTE | 2021-12-12 18:09 | DI.VRAD_ITS ---
PROCEDURE INFORMATION: Exam: CT Thoracic Spine Without Contrast Exam date and time: 12/12/2021 5:04 PM Age: 76 years old Clinical indication: Other: S/P fall, R/O FX TECHNIQUE: Imaging protocol: Computed tomography of the thoracic spine without contrast. Radiation optimization: All CT scans at this facility use at least one of these dose optimization techniques: automated exposure control; mA and/or kV adjustment per patient size (includes targeted exams where dose is matched to clinical indication); or iterative reconstruction. COMPARISON: CT ABDOMEN PELVIS WO 05/04/2021 5:51 AM FINDINGS: Bones/joints: No evidence of acute osseous injury of the thoracic spine. The vertebral body heights are preserved. 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 Discs/Spinal canal/Neural foramina: No significant disc protrusion. No severe spinal canal stenosis. No significant neural foraminal narrowing. 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 Lungs: Bilateral rekc-kk-eavzyfay bronchiectasis within the lower lobes. Extensive patchy consolidation throughout the left lower lobe and posterior right upper lobe suspicious for pneumonia. Subpleural increased interstitial pulmonary markings throughout the posterolateral upper lobes and right lower lobe may be compatible with fibrosis or atelectasis. Infectious process cannot be excluded. IMPRESSION: 1. No evidence of acute osseous injury of the thoracic spine. 2. Extensive patchy consolidation throughout the left lower lobe and posterior right upper lobe suspicious for pneumonia. 3. 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 4. 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 5. Bilateral phnb-yz-ycrogahe bronchiectasis within the lower lobes. 6. Subpleural increased interstitial pulmonary markings throughout the posterolateral upper lobes and right lower lobe may be compatible with fibrosis or atelectasis. Infectious process cannot be excluded. PROCEDURE INFORMATION: Exam: CT Lumbar Spine Without Contrast Exam date and time: 12/12/2021 5:04 PM Age: 76 years old Clinical indication: Other: S/P fall, R/O FX TECHNIQUE: Imaging protocol: Computed tomography of the lumbar spine without contrast. COMPARISON: MR LUMBAR SPINE WO/W 02/22/2020 10:15 AM FINDINGS: Bones/joints: No evidence of acute osseous injury of the lumbar spine. The vertebral body heights are preserved. Discs/Spinal canal/Neural foramina: Moderate to severe degenerative disc disease throughout the lumbar spine worse at L2-L3 and L4-L5. At L2-L3, there is diffuse disc bulging causing moderate canal stenosis, unchanged. Soft tissues: Unremarkable. IMPRESSION: 1. No evidence of acute osseous injury of the lumbar spine. 2. At L2-L3, there is diffuse disc bulging causing moderate canal stenosis, unchanged. Dictated and Authenticated by: Sadi Marx MD. Ordering:HOLLY Choudhury MD
--- NOTE | 2021-12-12 18:22 | DI.VRAD_ITS ---
PROCEDURE INFORMATION: Exam: CT Chest Without Contrast; Diagnostic Exam date and time: 12/12/2021 5:04 PM Age: 76 years old Clinical indication: Other: Cough, SOB, R/O pe pneumonia, rib FX; Other: Cough, SOB, R/O pe, pneumonia, rib FX TECHNIQUE: Imaging protocol: Diagnostic computed tomography of the chest without contrast. 3D rendering (Not supervised by radiologist): MIP and/or 3D reconstructed images were created by the technologist. Radiation optimization: All CT scans at this facility use at least one of these dose optimization techniques: automated exposure control; mA and/or kV adjustment per patient size (includes targeted exams where dose is matched to clinical indication); or iterative reconstruction. COMPARISON: CT HEAD NECK WO 12/12/2021 4:57 PM FINDINGS: Lungs: Subpleural increased interstitial pulmonary markings throughout the posterolateral upper lobes and posterior right lower lobe may be compatible with pulmonary fibrosis or atelectasis. Extensive patchy consolidation throughout the left lower lobe and within the posterior segment of the right upper lobe suspicious for multi lobar pneumonia. Pleural spaces: Small right pleural effusion. Heart: Mild pericardial effusion is new since prior. Mild atherosclerotic calcifications of the coronary arteries. No cardiomegaly. Lymph nodes: Unremarkable. No enlarged lymph nodes. Vasculature: Unremarkable. No aortic aneurysm. 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 No acute fracture. Soft tissues: Unremarkable. IMPRESSION: 1. Extensive patchy consolidation throughout the left lower lobe and within the posterior segment of the right upper lobe suspicious for multi lobar pneumonia. 2. Small right pleural effusion. 3. Subpleural increased interstitial pulmonary markings throughout the posterolateral upper lobes and posterior right lower lobe may be compatible with pulmonary fibrosis or atelectasis. 4. Mild pericardial effusion is new since prior. PROCEDURE INFORMATION: Exam: CT Abdomen And Pelvis Without Contrast Exam date and time: 12/12/2021 5:04 PM Age: 76 years old Clinical indication: Other: Cough, SOB, R/O pe pneumonia, rib FX; Other: Cough, SOB, R/O pe, pneumonia, rib FX TECHNIQUE: Imaging protocol: Computed tomography of the abdomen and pelvis without contrast. 3D rendering (Not supervised by radiologist): MIP and/or 3D reconstructed images were created by the technologist. Radiation optimization: All CT scans at this facility use at least one of these dose optimization techniques: automated exposure control; mA and/or kV adjustment per patient size (includes targeted exams where dose is matched to clinical indication); or iterative reconstruction. COMPARISON: CT ABDOMEN PELVIS WO 05/04/2021 5:51 AM FINDINGS: Liver: Normal. No mass. Gallbladder and bile ducts: The gallbladder is not visualized, most likely surgically removed. No ductal dilation. Pancreas: Normal. No ductal dilation. Spleen: Normal. No splenomegaly. Adrenal glands: Normal. No mass. Kidneys and ureters: Normal. No hydronephrosis. Stomach and bowel: Mild diverticulosis is present in the distal colon. No obstruction. No mucosal thickening. Appendix: No evidence of appendicitis. Intraperitoneal space: Unremarkable. No free air. No significant fluid collection. Vasculature: Unremarkable. No abdominal aortic aneurysm. Lymph nodes: Unremarkable. No enlarged lymph nodes. Urinary bladder: Unremarkable as visualized. Reproductive: Unremarkable as visualized. Bones/joints: Unremarkable. No acute fracture. Soft tissues: Unremarkable. IMPRESSION: No evidence of acute traumatic injury of the abdomen and pelvis. Dictated and Authenticated by: Sadi Marx MD. Ordering:HOLLY Choudhury MD
[2021-12-12 19:17] LABS: Procalcitonin 5.6 ng/mL
[2021-12-12] MEDS: Dexamethasone 10 MG/ML VIAL IVP (19:21)
[2021-12-12 20:03] LABS: Lab Add On Test DONE
[2021-12-12 20:38] LABS: Creatine Kinase 2917 U/L (39-308)
[2021-12-12 20:50] LABS: C-Reactive Protein > 25.00 mg/dL (0.0-0.3)
[2021-12-12 21:31] LABS: Ferritin 1488 ng/mL (26-388)
--- NOTE | 2021-12-12 21:54 | W.PM.HP.N ---
Date of service: 12/12/21 Time of Service: 21:54 Assessment and Plan Assessment and plan (1) Secondary bacterial pneumonia: Status: Acute Assessment and plan: Present on admission, in setting of COVID-19. Will treat with doxycycline and ceftriaxone (bacteremia dose). Encourage pulmonary toilet. Concern for aspiration as well, given dysphagia - trial pureed diet with nectar thickened fluids and consult speech therapy. (2) Acute kidney injury: Status: Acute Assessment and plan: In setting of rhabdomyolysis, dehydration, and COVID-19, but also h/o urinary retention. Will treat with IVF, monitoring I/O's, Cr, CPK. Check a UA. Monitor bladder scans. No evidence of obstructive uropathy on CT. (3) Rhabdomyolysis: Status: Acute Assessment and plan: Contributing to ALEXIA. Hold simvastatin, though I suspect that the true cause of the rhabdomyolysis is the patient's fall and his COVID-19. Treat with IVF. Trend CPK, Cr. (4) COVID-19: Status: Acute Assessment and plan: Without clinical hypoxia. Will treat with remdesivir, supplement vitamins C, D, zinc. Enocurage pulmonary toilet. Abx for a superimposed bacterial process. (5) Dysphagia: Status: Acute Assessment and plan: Onset coincides with cough; dysphagia is primarily for thin water and pills. Suspect that this has to do with irritation of the oropharynx from coughing. The patient specifically denied a sore throat. The patient had been able to eat food without issues, he told me (he said he had previously forgotten, but did in fact eat dinner the last two nights without issue). Trial a modified diet. Consult speech therapy. (6) Dehydration: Status: Acute Assessment and plan: As above - IVF (7) HILAD on CPAP: Assessment and plan: Provide CPAP. (8) Transaminitis: Status: Acute Assessment and plan: In setting of rhabdomyolysis, COVID-[address] of the abdomen, as well as a normal alk phos, it is safe to assume that gallbladder is not the culprit. This transaminitis pattern is more c/w rhabdomyolysis. Will trend as we are hydrating the patient. (9) Back pain: Status: Acute Assessment and plan: No evidence of fractures on CT. Pain from the fall is possible, but we need to ensure that the patient is not again bacteremic and does not again have septic discitis. Should his blood cultures come back positive, he will need an MRI of his spine. (10) Closed head injury: Status: Acute Assessment and plan: Monitor mental status. (11) Ambulatory dysfunction: Status: Acute Assessment and plan: Resulting in a fall. In setting of COVID-19, rhabdomyolysis. PT consulted. (12) Left groin pain: Status: Acute Assessment and plan: Nonemergent surgical consult. CT abdomen/pelvis did not mention a hernia, but clinically I do think the patient might have it. (13) Constipation: Status: Chronic Assessment and plan: LIkely contributing to LUTS. Schedule a bowel regimen. (14) DVT prophylaxis: Status: Acute Assessment and plan: Therapeutic renally dosed lovenox (the patient has COVID-19 and is admitted to the medical surgical floor) (15) Discharge planning issues: Status: Acute Assessment and plan: DNR/DNI as confirmed by my conversation with the patient. May require SNF on d/c. History of Present Illness History of Present Illness Chief Complaint: Weakness Narrative: Mr Hanson is a 76 year old male who is fully vaccinated and boosted x 2 against COVID-19 with PMHx of MSSA bacteremia with epidural abscess in 2013 as well as in MSSA septic discitis at L2-3 and L3-4 in 2020, as well as PSVT, HTN, BPH, HILDA on CPAP who was referred to [facility] ED today by [facility] for evaluation of dysphagia for pills which had developed over the last 4 days , cough productive of clear sputum, possible shortness of breath, and generalized weakness resulting in a fall in the shower yesterday in setting of a diagnosis of COVID-19 made at the urgent care today by a rapid antigetn test. His PO intake over the last couple of days had been poor due to this dysphagia, and the patient was noted to be coughing on swallowing trial of clear liquids at the urgent care. The patient had been getting weaker over the course of about a week and had developed a cough, which was getting better. However, the leg weakness resulted in a fall in the shower yesterday, hitting his head, now with reports of lower back pain. He was down for 4 hrs. Per ER provider, he had preserved rectal tone. CT of the thoracic and lumbar spine showed stable/unchanged L2-L3 diffuse disc bulging causing moderate canal stenosis. CT head was negative. CT c-spine showed bilateral upper lung infiltrates, R>L, with a small right pleural effusion as well as arthritis. CT chest showed LLL and RUL infiltrates c/w pneumonia with subpleural interstitial markings in B lung, as well as bronchiectasis of bilateral lower lobes. There was no evidence of fracture on any of the images. His O2 sat in the ED was 94% on RA. He was afebrile. He was found to have an acute kidney injury with a Cr of 2.3 (baseline of 1.1). He had elevated AST and ALT with a normal alk phos, and his CPK was elevated to 2917. He also had an elevated procalcitonin of 5.6 ng/mL. Clinically, the patient appeared dry in the ED. Hospitalist admission for treatment of a bacterial pneumonia in setting of COVID-19 as well as his ALEXIA was requested. In addition, the patient reports pain in LLQ/L groin and is wondering if his hernia could be causing anything. Of note, preliminary read of the CT abdomen/pelvis does not mention an inguinal or a femoral hernia. He has been constipated - it has been 2 days since his last BM. He is known to urology for incomplete bladder emptying. On arrival on the floor, he was saturating 94% on RA but was placed on 2L of O2 because of reports of wearing a CPAP at night. Review of Systems All systems reviewed & are unremarkable except as noted in HPI and below PFSH All Active Problems (Updated 12/13/21 @ 01:18 by Florence Lowery MD) Constipation (Chronic) Left groin pain (Acute) Transaminitis (Acute) Ambulatory dysfunction (Acute) Closed head injury (Acute) Back pain (Acute) Dysphagia (Acute) Rhabdomyolysis (Acute) Secondary bacterial pneumonia (Acute) COVID-19 (Acute) Multifocal pneumonia (Acute) Acute kidney injury (Acute) Dehydration (Acute) Feeling of incomplete bladder emptying (Acute) Suprapubic pressure (Acute) Difficulty in urination (Acute) Abdominal pain (Acute) Anemia, blood loss (Acute) Anemia (Chronic) Anemia of chronic disease (Acute) SBO (small bowel obstruction) (Acute) Acute confusion (Acute) Vomiting (Acute) Essential hypertension (Chronic) Constipation (Acute) Lumbar discitis (Acute) MSSA bacteremia (Acute) Urinary retention (Acute) BPH (benign prostatic hyperplasia) (Chronic) PSVT (paroxysmal supraventricular tachycardia) (Acute) Discharge planning issues (Acute) DVT prophylaxis (Acute) Ambulatory dysfunction (Acute) Neck pain (Acute) Back pain (Acute) Gram-positive cocci bacteremia (Acute) Left inguinal hernia (Chronic) Medical History (Updated 12/13/21 @ 01:18 by Florence Lowery MD) Conductive hearing loss Dehydration Epidural abscess (~10/09/13) Erectile dysfunction History of Clostridioides difficile colitis (~10/2013) History of small bowel obstruction (07/12/15) MSSA (methicillin susceptible Staphylococcus aureus) septicemia (10/09/13) in setting of ruputured appendicitis and found to have disciitis epidural abscess, [facility], [place], [place]; Dr. Casey Mixon, infectious disease HILDA on CPAP Osteomyelitis of vertebra of thoracolumbar region (~10/09/13) treated w/ 6 weeks of Ancef; seen by Dr. Casey Mixon, infectious disease, [place], [place]; completed treatment 11/20/2013; complicated by C. difficile colitis Panic anxiety syndrome Sensorineural hearing loss Surgical History H/O sinus surgery History of bilateral cataract extraction History of cholecystectomy (~1998) History of tonsillectomy and adenoidectomy S/P laparoscopic appendectomy (10/09/13) S/P left inguinal hernia repair Social History Smoking/Tobacco Use Status: Former Tobacco Use Smoking risk assessment performed?: Yes Alcohol Intake: never Drug use: Never Substance use type: does not use Do you feel safe at home: Yes Do you feel safe in your relationship?: Yes Meds Allergies and Home Medications Allergies Allergy/AdvReac Type Severity Reaction Status Date / Time Penicillins Allergy Mild Skin Rash Verified 12/12/21 12:16 cefazolin Allergy Skin Rash Verified 12/12/21 12:16 aspirin AdvReac Mild GI Bleeding Verified 12/12/21 12:16 Home Medications Medication Instructions Recorded Confirmed Type finasteride 5 mg tablet (Proscar) 5 mg PO DAILY 07/25/17 12/12/21 History levothyroxine 25 mcg tablet 25 mcg PO DAILY 07/25/17 12/12/21 History (Synthroid) simvastatin 10 mg tablet 10 mg PO DAILY 07/25/17 12/12/21 History tamsulosin 0.4 mg capsule 0.4 mg PO BID 07/25/17 12/12/21 History vacuum erection device system #1 ea 03/28/18 09/08/21 Rx lisinopril 2.5 mg tablet 2.5 mg PO DAILY 06/06/20 12/12/21 History Exam Narrative Exam Narrative: General: Pleasant weak appearing elderly male who is on 2L of O2 by MI at the time of exam, A&Ox3 (hesitates on dates), forgetful, talkative, coughing frequently. Neurological: A&Ox3, able to move all 4 extremities Psychiatric: Anxious, appropriate speech pattern/content Skin: Ecchymoses back HEENT: Atraumatic, normocephalic, EOMI, dry MM, clear oropharynx, no submandibular or cervical lymphadenopathy, no goiter or JVD Cardiovascular: RRR, no m/r/g Lungs: very minimally coarse breath sounds B; coughing Gastrointestinal: soft, tender in LLQ/groin, nondistended Genitourinary: deferred Extremities: no edema BLEs Results Imaging Additional studies: CT head; No acute intracranial abnormality. CT c-spine: 1. Upper lung infiltrates, greater on the right with a small right pleural effusion 2. Advanced degenerative arthritis in the cervical spine.? No fracture identified CT chest: 1. Extensive patchy consolidation throughout the left lower lobe and within the posterior segment of the right upper lobe suspicious for multi lobar pneumonia. 2. Small right pleural effusion. 3. Subpleural increased interstitial pulmonary markings throughout the posterolateral upper lobes and posterior right lower lobe may be compatible with pulmonary fibrosis or atelectasis. 4. Mild pericardial effusion is new since prior. CT abdomen/pelvis: No evidence of acute traumatic injury of the abdomen and pelvis. Of note, the kidneys, ureters, and bladder appeared normal. There was no evidence of hydronephrosis. CT thoracic spine: 1. No evidence of acute osseous injury of the thoracic spine. 2. Extensive patchy consolidation throughout the left lower lobe and posterior right upper lobe suspicious for pneumonia. 3. 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 4. 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 5. Bilateral ctdr-me-dhtzurny bronchiectasis within the lower lobes. 6. Subpleural increased interstitial pulmonary markings throughout the posterolateral upper lobes and right lower lobe may be compatible with fibrosis or atelectasis. Infectious process cannot be excluded. CT lumbar spine: 1. No evidence of acute osseous injury of the lumbar spine. 2. At L2-L3, there is diffuse disc bulging causing moderate canal stenosis, unchanged. Labs Result diagrams: 12/12/21 15:05 12/12/21 15:05 Labs: Laboratory Results - last 24 hr 12/12/21 12/12/21 12/12/21 15:05 15:05 15:05 WBC 9.13 RBC 3.14 L Hgb 10.1 L Hct 29.6 L MCV 94 MCH 32.2 MCHC 34.1 RDW 12.5 Plt Count 130 MPV 10.5 Immature Gran % See Differential Neutrophils % 79.0 Band Neutrophils % 8 Lymphocytes % 4.0 Atypical Lymphs % 1 Monocytes % 8.0 Eosinophils % 0.0 Basophils % 0.0 Nucleated RBC % 0.0 Absolute Neutrophils 7.94 H Absolute Lymphocytes 0.46 L Absolute Monocytes 0.73 Absolute Eosinophils 0.00 Absolute Basophils 0.00 RBC Morphology Normal Sodium 141 Potassium 4.4 Chloride 105 Carbon Dioxide 25.7 Anion Gap 10.3 BUN 63 H Creatinine 2.3 H Estimated GFR/1.73 m2 27.64 Glucose 120 H Calcium 8.9 Magnesium 2.2 Ferritin Total Bilirubin 2.7 H AST 153 H ALT 107 H Alkaline Phosphatase 85 Creatine Kinase Troponin I < 50 C-Reactive Protein Total Protein 6.6 Albumin 3.3 L Lipase 111 Procalcitonin 5.6 Add-On Test Request 12/12/21 12/12/21 15:05 15:05 WBC RBC Hgb Hct MCV MCH MCHC RDW Plt Count MPV Immature Gran % Neutrophils % Band Neutrophils % Lymphocytes % Atypical Lymphs % Monocytes % Eosinophils % Basophils % Nucleated RBC % Absolute Neutrophils Absolute Lymphocytes Absolute Monocytes Absolute Eosinophils Absolute Basophils RBC Morphology Sodium Potassium Chloride Carbon Dioxide Anion Gap BUN Creatinine Estimated GFR/1.73 m2 Glucose Calcium Magnesium Ferritin 1488 H Total Bilirubin AST ALT Alkaline Phosphatase Creatine Kinase 2917 H Troponin I C-Reactive Protein > 25.00 H Total Protein Albumin Lipase Procalcitonin Add-On Test Request DONE Last Vital Signs Temp 36.7 C 12/12/21 14:16 Pulse 68 12/12/21 20:29 Resp 18 12/12/21 20:29 BP 106/49 L 12/12/21 19:45 Pulse Ox 94 12/12/21 20:29
[2021-12-12] MEDS: Melatonin 3 MG TAB PO (22:00)
[2021-12-12] MEDS: Ascorbic Acid 500 MG TAB 1000 MG PO (22:00)
[2021-12-12] MEDS: REMDESIVIR 200 MG in Normal Saline 250 ML 250 MG IVPB (22:00)
[2021-12-12] MEDS: Lactated Ringers 1,000 ML 100 ML IV (22:16)
[2021-12-12] MEDS: Tamsulosin 0.4 MG CAPCR PO (23:45)
[2021-12-12] MEDS: cefTRIAXone 2 GM/50 ML BAG IVPB (23:45)
[2021-12-13] VITALS (10 sets, daily range): BP systolic 112–138; BP diastolic 59–61; PULSE 53–66; RESP 16–20; TEMP 36–36.6; O2SAT 94–98
[2021-12-13] MEDS: DOXYCYCLINE 100 MG in Normal Saline 100 ML IVPB ×3 (00:30→23:50)
[2021-12-13] MEDS: Normal Saline 1,000 ML 100 ML IV ×2 (01:35→12:14)
[2021-12-13] MEDS: Levothyroxine 25 MCG TAB PO (05:59)
[2021-12-13 06:23] LABS: Abs Immature Grans 0.02 10^3/uL (0.0-0.06); Absolute Basophil Count 0.01 10^3/uL (0.0-0.2); Absolute Lymphocyte Count 0.28 10^3/uL (1.2-3.4); Absolute Monocyte Count 0.25 10^3/uL (0.1-0.8); Absolute Neutrophil Count 5.13 10^3/uL (1.2-6.7); Basophils % 0.2; HCT 27.4 % (40.0-50.0); HGB 9.3 g/dL (13.5-17.5); Immature Grans % 0.4; Lymphocytes % 4.9; MCH 31.5 pg (27.0-33.0); MCHC 33.9 % (32.0-36.0); MCV 93 fL (80-95); MPV 10.5 fL (8.0-11.0); Monocytes % 4.4; Neutrophils % 90.1; Platelet Count 131 10^3/uL (130-400); RBC 2.95 10^6/uL (4.36-5.78); RDW 12.5 % (11.8-14.1); RDW-SD 42.8 fL; WBC 5.69 10^3/uL (4.4-10.8)
[2021-12-13 06:47] LABS: Prothrombin Time 10.2 sec (9.3-11.0)
[2021-12-13 06:58] LABS: D-Dimer 5184 ng/mlFEU (<500)
[2021-12-13 07:08] LABS: ALT 105 U/L (16-63); AST 137 U/L (15-37); Albumin 2.7 g/dL (3.4-5.0); Alkaline Phosphatase 82 U/L (46-116); Anion Gap 10.4 mmol/L (3-11); BUN 65 mg/dL (7-18); Bilirubin, Direct 0.4 mg/dL (0.0-0.2); Bilirubin, Total 1.1 mg/dL (0.2-1.0); CO2 23.6 mmol/L (21.0-32.0); CREATININE 1.7 mg/dL (0.70-1.30); Calcium 8.7 mg/dL (8.5-10.1); Chloride 109 mmol/L (98-107); Estimated GFR 39.18 (mL/min/1.73m2); Glucose 135 mg/dL (74-106); Magnesium 2.4 mg/dL (1.8-2.4); PHOSPHORUS 4.1 mg/dL (2.6-4.7); Potassium 4.6 mmol/L (3.5-5.1); Sodium 143 mmol/L (136-145); TSH (W/Ref FT4) 0.35 uIU/mL (0.36-3.74)
[2021-12-13 07:15] LABS: C-Reactive Protein > 25.00 mg/dL (0.0-0.3); Creatine Kinase 1881 U/L (39-308)
[2021-12-13 07:33] LABS: FREE T4 1.13 ng/dL (0.76-1.46)
[2021-12-13 08:02] LABS: Ferritin 1501 ng/mL (26-388)
[2021-12-13] MEDS: Enoxaparin 80 MG/0.8 ML SYR 70 MG SC (09:09)
[2021-12-13] MEDS: Docusate Sodium 100 MG/10 ML CUP PO ×2 (09:09→20:55)
[2021-12-13] MEDS: Ascorbic Acid 500 MG TAB 1000 MG PO ×2 (09:09→20:54)
[2021-12-13] MEDS: Zinc Sulfate 220 MG TAB PO (09:10)
[2021-12-13] MEDS: Cholecalciferol (Vitamin D3) 1,000 UNIT TAB 2000 UNITS PO (09:10)
[2021-12-13] MEDS: guaiFENesin 600 MG TABCR PO ×2 (09:10→20:55)
[2021-12-13] MEDS: Famotidine 20 MG TAB PO (09:10)
[2021-12-13] MEDS: Finasteride 5 MG TAB PO (09:10)
[2021-12-13] MEDS: Tamsulosin 0.4 MG CAPCR PO ×2 (09:11→20:55)
--- NOTE | 2021-12-13 10:35 | PT.INIE ---
Date of service: 12/13/21 Time of Service: 10:35 PT Notes Visit Reasons: COVID19 Pneumonia,ALEXIA,Dysphagia,Amb Dysfunction Physical Therapy Inpatient Initial Evaluation Date: 12/13/2021 Referring Doctor: Florence Lowery MD PT Orders: PT CONSULT: Limited ability. Precautions: Fall. Standard.? Activity as tolerated. COVID-19 positive. Patient Profile/Admitting Diagnosis: Patient is a 76-year-old male who presented to the ED on 12/12/2021 with diagnosis of COVID-19 infection, bacterial pneumonia, acute kidney injury, rhabdomyolisis, dysphagia, dehydration, HILDA and is on CPAP, transaminitis, back pain, ambulatory dysfunction, left groin pain, and constipation. PMHX: All Active Problems?(Updated 12/13/21 @ 01:18 by Florence Lowery MD) Constipation (Chronic) Left groin pain (Acute) Transaminitis (Acute) Ambulatory dysfunction (Acute) Closed head injury (Acute) Back pain (Acute) Dysphagia (Acute) Rhabdomyolysis (Acute) Secondary bacterial pneumonia (Acute) COVID-19 (Acute) Multifocal pneumonia (Acute) Acute kidney injury (Acute) Dehydration (Acute) Feeling of incomplete bladder emptying (Acute) Suprapubic pressure (Acute) Difficulty in urination (Acute) Abdominal pain (Acute) Anemia, blood loss (Acute) Anemia (Chronic) Anemia of chronic disease (Acute) SBO (small bowel obstruction) (Acute) Acute confusion (Acute) Vomiting (Acute) Essential hypertension (Chronic) Constipation (Acute) Lumbar discitis (Acute) MSSA bacteremia (Acute) Urinary retention (Acute) BPH (benign prostatic hyperplasia) (Chronic) PSVT (paroxysmal supraventricular tachycardia) (Acute) Discharge planning issues (Acute) DVT prophylaxis (Acute) Ambulatory dysfunction (Acute) Neck pain (Acute) Back pain (Acute) Gram-positive cocci bacteremia (Acute) Left inguinal hernia (Chronic) Medical History?(Updated 12/13/21 @ 01:18 by Florence Lowery MD) Conductive hearing loss Dehydration Epidural abscess (~10/09/13) Erectile dysfunction History of Clostridioides difficile colitis (~10/2013) History of small bowel obstruction (07/12/15) MSSA (methicillin susceptible Staphylococcus aureus) septicemia (10/09/13) in setting of ruputured appendicitis and found to have disciitis epidural abscess, [facility], [place], [place]; Dr. Casey Mixon, infectious disease HILDA on CPAP Osteomyelitis of vertebra of thoracolumbar region (~10/09/13) treated w/ 6 weeks of Ancef; seen by Dr. Casey Mixon, infectious disease, [place], [place]; completed treatment 2013; complicated by C. difficile colitisPanic anxiety syndrome Sensorineural hearing loss Surgical History? H/O sinus surgery History of bilateral cataract extraction History of cholecystectomy (~1998) History of tonsillectomy and adenoidectomy S/P laparoscopic appendectomy (10/09/13) S/P left inguinal hernia repair Social History/Home Situation: Patient lives alone on the second floor of an apartment building with no steps to enter.? He uses an elevator to reach the entrance of his apartment.? He is independent with all activities of daily living not requiring any assistive ambulatory device nor adaptive equipment.? He still drives.? His passed 5 years ago and he has been seeing a counselor to manage his grief. Niece helps with any errands as needed. regularly walks downtown distances without an AD. Equipment Owned/DME: FWW, SPC Subjective: Agreeable to PT consult. Reports feeling a lot better than he did upon On admission. Still feels weak in his extremities. Denies back pain. Denies left groin pain. Denies pain in B LE. Stressed out about hows frequent coughing. Hopeful that he can go home as soon as the MD clears him to. Objective: General Observation: IV access in right UE.? R-sided torticollis. Genu varum. Mental Status: Alert and oriented as to person place and time Pain: Denies ROM: Right Upper Extremity: ? Shoulder Flexion WFL. Shoulder abduction WFL. Elbow flexion WFL. Wrist flexion WFL. Opening and closing of hand WFL. Left Upper Extremity:? Shoulder Flexion WFL. Shoulder abduction WFL. Elbow flexion WFL. Wrist flexion WFL. Opening and closing of hand WFL. Right Lower Extremity: Hip flexion WFL. Hip abduction WFL. Knee flexion WFL. Ankle dorsiflexion WFL. Ankle plantarflexion WFL. Left Lower Extremity: Hip flexion WFL. Hip abduction WFL. Knee flexion WFL. Ankle dorsiflexion WFL. Ankle plantarflexion WFL. Strength: Right Upper Extremity: Shoulder flexors 4/5. Shoulder abductors 4/5. Elbow flexors 4/5. Elbow extensors 4/5. Software Business Analyst strong. Left Upper Extremity: Shoulder flexors 4/5. Shoulder abductors 4/5. Elbow flexors 4/5. Elbow extensors 4/5. Software Business Analyst strong. Right Lower Extremity: Hip flexors 4/5. Hip abductors 4/5. Knee flexors 4/5. Knee extensors 4/5. Ankle dorsiflexors 4/5. Ankle plantarflexors 4-/5. Left Lower Extremity:Hip flexors 4/5. Hip abductors 4/5. Knee flexors 4/5. Knee extensors 4/5. Ankle dorsiflexors 4/5. Ankle plantarflexors 4-/5. Sensation: Intact as to pain and pressure on bilateral lower extremities. Bed Mobility/Transfers: Supine to sit supervision Sit to supine supervision Sit to stand contact-guard assist uired Stand to sit contact-guard assist Bed to chair contact-guard assist Chair to bed contact-guard assist Gait: Patient was able to tolerate level surface ambulation of 20 feet x 2 with contact-guard assist using front-wheeled walker with full weight bearing.? Chayo decreased.? No LOB. Reported mild fatigue. Balance: Static Sitting: Normal Dynamic Sitting: Normal Static Standing: Fair Dynamic Standing: Fair Special Tests: Mobility Limitations Standardized Measure [facility] 6 clicks Basic Mobility Inpatient Short Form: Raw Score: 21 ? CMS Score: 29% deficit ? 4 stage balance test: Unable at this time. Informed Consent/Education:? Patient instructed in purpose of PT consult and continued plan of care via swing bed status. Assessment: Not had a baseline mobility level and requires use of FWW for all transfers and ambulation test performance. Patient presents with clinical signs and symptoms consistent with current/admitting diagnoses that have resulted to mobility limitations, gait instability, generalized weakness, and impairment of motor control as demonstrated by the following impairment level findings: 1.? Decreased strength to B UE and B LE major muscle groups 2.? Impaired dynamic standing balance 3.? Impaired activity tolerance Impairments are contributing to the following functional limitations: 1.? Increased dependence with transfers 2.? Inability to safely ambulate without assistive device and physical assistance 3.? Increase completion time for mobility ADL performance 4.? Increased fall risk Patient is assessed as a 15930 moderate complexity based on the following: History: 74-year-old male waiting for impairment level findings, functional limitations, and medical history as indicated above Examination: Demonstrable impairment in strength, balance, and range of motion with underlying impairments and functional limitations as documented above Presentation: Evolving Decision Makin moderate complexity Goals: Goals X1 week 1. Sit-Stand independent with SPC 2. Stand-Sit independent with SPC 3. Bed-Chair independent with SPC 4. Chair-Bed independent with SPC 5. Independent gait on level surface with use of SPC for at least 800 feet without report of pain nor dyspnea 6. Independent stair negotiation while holding onto bilateral rails for at least 10 steps without report of pain nor dyspnea 7. Good static and dynamic standing balance/tolerance Plan of Care/Treatment Plan: 1-2x/day, 7 days/week x 1 week. Initiate Physical Therapy intervention for strengthening, bed mobility, transfers, gait, stairs, balance training, use of assistive device. PT Intervention: Session today consisted of initial physical therapy evaluation as well as education training on mobility ADL performance using the front-wheeled walker. DISCHARGE RECOMMENDATIONS: Patient will benefit from home health PT services in order to progress mobility level using least restrictive assistive ambulatory device, assess home safety, identify additional equipment needs, and establish a functional maintenance program that will increase ability of patient to remain at home. TREATMENT CODE/TIME: 88348 x 20 minutes, 48635 x 13 minutes beginning at 10:35 AM. Thank you very much for this referral. Ariane Poe PT, DPT, CLT [facility] Inpatient [facility] at [place], [place]
[2021-12-13] MEDS: Dexamethasone 4 MG TAB 6 MG PO (12:13)
--- NOTE | 2021-12-13 12:13 | PDOC.CMIN ---
- If Service Date Differs Date of service: 12/13/21 Time of Service: 12:13 Care Management Initial Assess REASON FOR HOSPITALIZATION:: Covid 19 Pnuemonia, ALEXIA, dysphagia PAST MEDICAL HISTORY/PAST SURGICAL HISTORY:: All Active Problems. Constipation (Chronic). Left groin pain (Acute). Transaminitis (Acute). Ambulatory dysfunction (Acute). Closed head injury (Acute). Back pain (Acute). Dysphagia (Acute). Rhabdomyolysis (Acute). Secondary bacterial pneumonia (Acute). COVID-19 (Acute). Multifocal pneumonia (Acute). Acute kidney injury (Acute). Dehydration (Acute). Feeling of incomplete bladder emptying (Acute). Suprapubic pressure (Acute). Difficulty in urination (Acute). Abdominal pain (Acute). Anemia, blood loss (Acute). Anemia (Chronic). Anemia of chronic disease (Acute). SBO (small bowel obstruction) (Acute). Acute confusion (Acute). Vomiting (Acute). Essential hypertension (Chronic). Constipation (Acute). Lumbar discitis (Acute). MSSA bacteremia (Acute). Urinary retention (Acute). BPH (benign prostatic hyperplasia) (Chronic). PSVT (paroxysmal supraventricular tachycardia) (Acute). Discharge planning issues (Acute). DVT prophylaxis (Acute). Ambulatory dysfunction (Acute). Neck pain (Acute). Back pain (Acute). Gram-positive cocci bacteremia (Acute). Left inguinal hernia (Chronic). Medical History. Conductive hearing loss. Dehydration. Epidural abscess (~10/09/13). Erectile dysfunction. History of Clostridioides difficile colitis (~10/2013). History of small bowel obstruction (07/12/15). MSSA (methicillin susceptible Staphylococcus aureus) septicemia (10/09/13). in setting of ruputured appendicitis and found to have disciitis epidural abscess, [facility], [place], [place]; Dr. Casey Mixon, infectious disease. HILDA on CPAP. Osteomyelitis of vertebra of thoracolumbar region (~10/09/13). treated w/ 6 weeks of Ancef; seen by Dr. Casey Mixon, infectious disease, [facility], [place], [place]; completed treatment 11/20/2013; complicated by C. difficile colitis. Panic anxiety syndrome. Sensorineural hearing loss. Surgical History. H/O sinus surgery. History of bilateral cataract extraction. History of cholecystectomy (~1998). History of tonsillectomy and adenoidectomy. S/P laparoscopic appendectomy (10/09/13). S/P left inguinal hernia repair PREVIOUS FUNCTIONAL STATUS/SOCIAL/FAMILY SUPPORTS:: Willy lives alone in [place], [place]. 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 He moved to [place] after his . He is independent at baseline. CURRENT FUNCTIONAL STATUS:: Dawit is currently on precautions for his Covid 19 diagnosis. Per report, Dawit fell in the shower, and was down for approximately 4 hours. He is being treated with IV abx, and is on a modified diet due to concern for aspiration. He will be evaluated by Speech therapy and PT to help determine needs for discharge. CM will continue to follow. ADVANCE DIRECTIVES:: On file, Miladis Helm listed as agent. Has patient been provided with info about the portal/API?: Yes Did the patient sign up for the portal?: Yes (active) CODE STATUS:: DNR/DNI INSURANCE COVERAGE / FINANCIAL ISSUES:: MCR/ [employer] CURRENT HOME/COMMUNITY SERVICES/EQUIPMENT:: None PRIMARY CARE PHYSICIAN:: Renée Bailey POTENTIAL DISCHARGE NEEDS:: Follow up with primary care scheduled prior to discharge PATIENT/FAMILY EDUCATION NEEDS:: Discharge education, limitations and follow up plan of care including ask me three and self management. ANTICIPATED BARRIERS TO DISCHARGE:: None TRANSPORTATION:: Via private vehicle by family/friend PLAN:: Willy is currently being treated for pneumonia, being treated with IV abx. He will be driven home via private vehicle, and will follow up with his PCP and discharge plan of care. CM will continue to assess for needs.
--- NOTE | 2021-12-13 12:40 | SP_ITS ---
Date of service: 12/13/21 Time of Service: 19:52 Subjective Speech Language Pathology Clinical Swallow Evaluation Date: 12/13/2021 Referring Doctor: Florence Lowery MD ROLLER LEVELER OPERATOR Orders: high risk/choke/asp pna Precautions: Fall. Standard.? Activity as tolerated.? COVID-19 positive DNR/DNI Consult order received; chart reviewed. ROLLER LEVELER OPERATOR spoke with patient's RN in AM re: current patient status, reason for consult ie clinical swallow evaluation in setting of (+) COVID19, recent fall in shower prior to acute admission, question of pneumonia and esophageal stricture causing poor p.o. intake, and/or question of malignancy per express care notes. Per RN, patient currently saturating on RA in mid-90s; previously 94% on RA but was placed on 2L of O2 because of reports of wearing a CPAP at night; currently struggling with thickened fluids; patient has tolerated small pills whole in applesauce and pureed solids well so far. Per chart review, patient is currently on modified diet (pureed solids, mildly thick liquids). JOSS HOUSE KEEPER reports patient required additional thickener (moderately thickened) at lunch meal in order to tolerate 50% of meal, taking liquids either via straw or cup sip. Patient seen by this ROLLER LEVELER OPERATOR for dinner meal this date. HPI: Patient is a 76 year old male who is fully vaccinated and boosted x 2 against COVID-19 with PMHx of MSSA bacteremia with epidural abscess in 2013 as well as in MSSA septic discitis at L2-3 and L3-4 in 2020, as well as PSVT, HTN, BPH, HILDA on CPAP who was referred to [facility] ED today by Express Care for evaluation of dysphagia for pills which had developed over the last 4 days , cough productive of clear sputum, possible shortness of breath, and generalized weakness resulting in a fall in the shower yesterday in setting of a diagnosis of COVID- 19 made at the urgent care today by a rapid antigen test. His PO intake over the last couple of days had been poor due to this dysphagia, and the patient was noted to be coughing on swallowing trial of clear liquids at the urgent care. The patient had been getting weaker over the course of about a week and had developed a cough, which was getting better. However, the leg weakness resulted in a fall in the shower yesterday, hitting his head, now with reports of lower back pain. He was down for 4 hrs. Per ER provider, he had preserved rectal tone. Acute Imaging & Labs: CT of the thoracic and lumbar spine showed stable/unchanged? L2-L3 diffuse disc bulging causing moderate canal stenosis. CT head was negative. CT c-spine showed bilateral upper lung infiltrates, R>L, with a small right pleural effusion as well as arthritis. CT chest showed LLL and RUL infiltrates c/w pneumonia with subpleural interstitial markings in B lung, as well as bronchiectasis of bilateral lower lobes. There was no evidence of fracture on any of the images. Patient also found to have an acute kidney injury with a Cr of 2.3 (baseline of 1.1). He had elevated AST and ALT with a normal alk phos, and his CPK was elevated to 2917.? He also had an elevated procalcitonin of 5.6 ng/mL. Subjective: Patient received alert/awake, agreeable to evaluation this evening, very talkative with intermittent coughing, able to communicate wants/needs effectively; able to demonstrate comprehension of recommendations for safe p.o. intake upon discharge once deemed medically stable. Reports the following: I had that tube down my throat in 2019, not sure if this caused it or if its the covid. My voice hasn't really been the same since then. The hard time with swallowing maybe started a week ago. But I've had issues with things getting stuck before then, right here [gestures to laryngeal area]. I can't remember when really. That's hard right now. But if I drink that stuff [thin liquids] then I'm gonna cough it all up. I can read, I just take more time now to process it all. Like, I can read something 10 times and it still doesn't stick. Well that all went down easy, that worked first time in a while. (referencing use of chin tuck w thin liquids via teaspoon) IMPRESSIONS: Patient demonstrates clinical s/sx oropharyngeal dysphagia (unable to r/o possible esophageal retention/dysmotility at this time) as evidenced by overt s/sx aspiration with thin liquids (immediate cough with wet vocal quality when consumed via straw, cup), report of pharyngeal globus, reduced po intake. Patient instructed in effective compensatory maneuvers for all p.o. intake per CSE this date (ie, chin tuck, followed by strong cough + re-swallow, small sips/bites, avoidance of straws - all of which reduce overt s/sx aspiration) and risk management strategies until further diagnostic imaging of swallowing is available / COVID19 virus is well managed. Of Note: Patient reports history of having tube down his throat in 2019 at [facility]; per chart review, patient had been admitted on 09/21/19 with sepsis with MSSA bacteremia, infected lumbar disc, developed C diff; patient recollection does not appear to be from intubation, but he does have hx of EGD procedure, reference of NGT and additional intervention(s) with GI/RD due to nu tritional/hydration concerns. Given reduced po intake and aversion to supplemental nutrition this date, highly recommend RD consult while on unit. Patient is at moderate-high risk for aspiration-related pulmonary complication, given adequate oral hygiene & presumed reduced immunocompetence in setting of current +COVID19 virus; improvements in physical mobility and overall pulmonary function likely to further reduce this risk. Further ROLLER LEVELER OPERATOR services warranted at this time. ? Provided education to patient/staff re: anatomy/physiology of swallowing mechanism, overt s/sx to monitor for re: potential aspiration of food / liquids, rationale for continued thorough oral care, relationship between respiratory function changes and deglutition, recommendations for effective compensatory strategies per CSE this date, rationale for VFSE/MBSS and logistics involved with imaging swallowing mechanism w ROLLER LEVELER OPERATOR, additional specialties (GI, ENT) and related diagnostic tests including laryngoscopy and/or barium esophagram Instrumentation: May benefit from both Esophagram (barium swallow study) in addition to VFSE/MBSS (modified barium swallow study) given concern(s) for both esophageal stricture / hx GI issues and concern for aspiration of po intake (liquid consistencies). Would prioritize esophagram and/or VFSE/MBSS while on acute unit; given reported changes in vocal quality since 2019, may also benefit from outpatient laryngoscopy to assess laryngeal function, only if airway protection concerns persist. Diet Texture Modification(s): IDDSI Level(s) 4-Pureed Solids, 2-Mildly Thick Liquids *Chin tuck + strong cough, re-swallow for all p.o. intake *May trial further thin liquids w ROLLER LEVELER OPERATOR only at this time Medication Intake: Whole with 4-Extremely Thick Liquids or 4-Pureed solids, 1 at a time Alter medications only as advised by MD or Pharmacist RISK MANAGEMENT: Oral hygiene q4h/every 4 hours and before/after PO intake using friction with toothbrush on all oral structures as tolerated Suction PRN HOB upright as tolerated; upright for all PO intake. Encourage physical mobility as tolerated. Level of Assistance/Supervision: Distant supervision for all PO intake PO intake only when awake/alert? Strategies/Adaptations/Assistive Equipment: - Chin tuck for all swallows; follow with strong cough + re-swallow - Via teaspoon or as advanced by ROLLER LEVELER OPERATOR Reduce auditory and/or visual distractions when eating, Provide verbal and/or visual cues to use recommended strategies, Small sips and bites when eating, Slow rate of intake, Avoid straws, Multiple swallows, Alternate intake of liquids and solids, Small+frequent meals throughout day / per , RD recommendations to support nutritional intake, maintain hydration Posture/Positioning Needs: Maintain upright position at least 30 minutes after meals Avoid meals/snacks 2-3 hours prior to reclining/sleeping Sleep with head of bed elevated to reduce likelihood of nocturnal reflux Specialist referrals: RD Ancillary tests: May also consider esophagram pending COVID19 status Therapy: 3-5x/week to address dysphagia including diagnostic and therapeutic services; ROLLER LEVELER OPERATOR to follow while on unit.? GOALS 1. Patient will tolerate IDDSI Level 4 pureed solids + Level 2 Mildly thickened liquids without s/sx aspiration provided training in/use of swallow strategies and aspiration precautions within 1 week. IN PROGRESS Trialed following strategies this date to assess clinical outcomes: Effective Strategies: - Chin tuck with thin liquid via teaspoon = negative overt s/sx aspiration in 5/5 trials - Cough + re-swallow = clear vocal quality Written cues placed on whiteboard for patient/staff to reference during po intake Ineffective Strategies: - Chin tuck + breath hold / supraglottic swallow with thin liquid via teaspoon = + overt s/sx aspiration in 3/3x - Chin tuck + breath hold / supraglottic swallow with pureed solid via teaspoon (pudding) = + overt s/sx asp in 2/2x - Breath hold / supraglottic swallow with thin liquid via teaspoon = positive overt s/sx aspiration in 1/1x Patient demonstrates difficulties with more complex verbal and/or written cues at this time; instead attempts to cough while holding breath vs following steps in succession 2. Patient will demonstrate understanding of education related to normal vs disordered swallowing, impact of COVID19 on swallow function, relationship between respiration and deglutition, and recommended strategies for minimizing risks of aspiration pna/airway occlusion within 1 week. IN PROGRESS Patient w good verbal teachback of overt s.sx aspiration this date, carryover of recommended strategies and rationale ? Deidre Mcdonald MA [facility]-ROLLER LEVELER OPERATOR [phone] PMHX: All Active Problems?(Updated 12/13/21 @ 01:18 by Florence Lowery MD) Constipation (Chronic) Left groin pain (Acute) Transaminitis (Acute) Ambulatory dysfunction (Acute) Closed head injury (Acute) Back pain (Acute) Dysphagia (Acute) Rhabdomyolysis (Acute) Secondary bacterial pneumonia (Acute) COVID-19 (Acute) Multifocal pneumonia (Acute) Acute kidney injury (Acute) Dehydration (Acute) Feeling of incomplete bladder emptying (Acute) Suprapubic pressure (Acute) Difficulty in urination (Acute) Abdominal pain (Acute) Anemia, blood loss (Acute) Anemia (Chronic) Anemia of chronic disease (Acute) SBO (small bowel obstruction) (Acute) Acute confusion (Acute) Vomiting (Acute) Essential hypertension (Chronic) Constipation (Acute) Lumbar discitis (Acute) MSSA bacteremia (Acute) Urinary retention (Acute) BPH (benign prostatic hyperplasia) (Chronic) PSVT (paroxysmal supraventricular tachycardia) (Acute) Discharge planning issues (Acute) DVT prophylaxis (Acute) Ambulatory dysfunction (Acute) Neck pain (Acute) Back pain (Acute) Gram-positive cocci bacteremia (Acute) Left inguinal hernia (Chronic) Medical History?(Updated 12/13/21 @ 01:18 by Florence Lowery MD) Conductive hearing loss Dehydration Epidural abscess (~10/09/13) Erectile dysfunction History of Clostridioides difficile colitis (~10/2013) History of small bowel obstruction (07/12/15) MSSA (methicillin susceptible Staphylococcus aureus) septicemia (10/09/13) in setting of ruputured appendicitis and found to have disciitis epidural abscess, [facility], [place], [place]; Dr. Casey Mixon, infectious? disease HILDA on CPAP Osteomyelitis of vertebra of thoracolumbar region (~10/09/13) treated w/ 6 weeks of Ancef; seen by Dr. Casey Mixon, infectious disease, [place], [place]; completed treatment 11/20/2013; complicated by C. difficile colitis Panic anxiety syndrome Sensorineural hearing loss Surgical History? H/O sinus surgery History of bilateral cataract extraction History of cholecystectomy (~1998) History of tonsillectomy and adenoidectomy S/P laparoscopic appendectomy (10/09/13) S/P left inguinal hernia repair Social History/Home Situation: Patient lives alone on the second floor of an apartment building with no steps to enter.? He uses an elevator to reach the entrance of his apartment.? He is independent with all activities of daily living not requiring any assistive ambulatory device nor adaptive equipment.? He still drives.? His passed 5 years ago and he has been seeing a counselor to manage his grief. Niece helps with any errands as needed.? regularly walks downtown distances without an AD. Equipment Owned/DME: [facility], [facility] OBJECTIVE: ? Sp02: 94% RR: 18, room air ? Cranial nerve exam / Oral Motor Grossly WFL aside from following: CN V: suspect mildly reduced laryngeal elevation CN VII: WFL CN IX/X: Vocal Quality - wet after po intake, intermittent hoarseness; suspect reduced airway protection given delayed cough response, unable to determine with objective imaging onset of swallow - suspect possible delay pharyngeal residue - likely present per patient report nasopharyngeal regurgitation - denied by patient CN XII: WFL ? Dentition/Oral Structures/Hygiene: dentition, oral hygiene appear adequate upon inspection; will likely benefit from continued review / assist and/or reminders from staff with oral care as needed while on unit Language: verbal expression/fluency - occasional verbal hesitations/difficulties with lexical retrieval, otherwies WFL naming, repetition, and auditory comprehension WFL Hearing: Conductive hearing loss, Sensorineural hearing loss; unaided Mental Status: AAOx3, recall of current events mostly intact during extended interview this date, some difficulties recalling prior medical history details Speech: WFL ? Laryngeal function exam: Secretions: WFL Vocal quality: Abnormal (intermittently hoarse, wet/gurgly) MPT: DNT S/Z ratio: DNT Pitch range: WFL, however patient reports his voice does sound different from what his baseline is, unclear if this relative to current admission and/or from previous admission in 2020 per interview today, patient stating I get mixed up sometimes Cough: (volitional) perceptually WFL although at times reflexive cough appears weak/effortful ? ? ROLLER LEVELER OPERATOR CPT Code: 27609 Clinical Swallowing Evaluation Coding
[2021-12-13 12:59] LABS: Bilirubin Negative (Negative); Blood Trace-intact (Negative); Clarity Clear (Clear); Glucose Negative (Negative); Ketones Trace mg/dL (Negative); Leukocyte Esterase Negative (Negative); Nitrite Negative (Negative); Specific Gravity 1.025 (1.005-1.025); Urobilinogen 0.2 EU/dL (Up TO 0.2); pH 5.5 (5-8)
[2021-12-13 13:17] LABS: Epithelial Cells Rare HPF (Negative); RBC 0-2 HPF (0-2); WBC 0-2 HPF (0-5)
[2021-12-13 13:18] LABS: Bacteria Negative HPF (Negative); C & S Indicated? No; Casts 3-5 Hyaline LPF (Negative); Crystals Negative HPF (Negative); Mucus Trace (Negative)
--- NOTE | 2021-12-13 16:47 | W.PM.PROGNOT ---
Date of Service Date of service: 12/13/21 Time of Service: 16:47 Assessment and Plan Assessment and plan (1) Secondary bacterial pneumonia: Status: Acute Assessment and plan: Present on admission, in setting of COVID-19. Continue doxycycline and ceftriaxone (bacteremia dose). Encourage pulmonary toilet. Concern for aspiration as well, given dysphagia - trial pureed diet with nectar thickened fluids and consult speech therapy. (2) Acute kidney injury: Status: Acute Assessment and plan: In setting of rhabdomyolysis, dehydration, and COVID-19, but also h/o urinary retention. creatinine improved from 2.3 to 1.7 continue IVF, monitoring I/O's, Cr, CPK Monitor bladder scans. No evidence of obstructive uropathy on CT. (3) Rhabdomyolysis: Status: Acute Assessment and plan: Contributing to ALEXIA. Hold simvastatin, true cause of the rhabdomyolysis is likely patient's fall and his COVID-19. Treat with IVF. Trend CPK, Cr. (4) COVID-19: Status: Acute Assessment and plan: Without clinical hypoxia. Will treat with remdesivir, supplement vitamins C, D, zinc. Enocurage pulmonary toilet. Abx for a superimposed bacterial process. decadron continued (5) Dysphagia: Status: Acute Assessment and plan: Onset coincides with cough; dysphagia is primarily for thin water and pills. Suspect that this has to do with irritation of the oropharynx from coughing. Trial a modified diet. Consult speech therapy. (6) Dehydration: Status: Acute Assessment and plan: As above - IVF (7) HILDA on CPAP: Assessment and plan: Provide CPAP. (8) Transaminitis: Status: Acute Assessment and plan: In setting of rhabdomyolysis, COVID-[address] of the abdomen, as well as a normal alk phos, it is safe to assume that gallbladder is not the culprit. This transaminitis pattern is more c/w rhabdomyolysis. Will trend as we are hydrating the patient. (9) Back pain: Status: Acute Assessment and plan: No evidence of fractures on CT. Pain from the fall is possible, but we need to ensure that the patient is not again bacteremic and does not again have septic discitis. Should his blood cultures come back positive, he will need an MRI of his spine. (10) Closed head injury: Status: Acute Assessment and plan: Monitor mental status. (11) Ambulatory dysfunction: Status: Acute Assessment and plan: Resulting in a fall. In setting of COVID-19, rhabdomyolysis. PT consulted. (12) Left groin pain: Status: Acute Assessment and plan: Nonemergent surgical consult. CT abdomen/pelvis did not mention a hernia, but clinically admission MD concerned (13) Constipation: Status: Chronic Assessment and plan: LIkely contributing to LUTS. Schedule a bowel regimen. (14) DVT prophylaxis: Status: Acute Assessment and plan: Therapeutic renally dosed lovenox (the patient has COVID-19 and is admitted to the medical surgical floor) (15) Discharge planning issues: Status: Acute Assessment and plan: DNR/DNI as confirmed on admission May require SNF on d/c. discussed with Dr Brito Subjective Subjective Patient reports: no new complaints, tolerating liquids well, tolerating a regular diet and afebrile; denies shortness of breath Exam Const General: cooperative and no acute distress Orientation: alert, awake and oriented x3 HENMT Head: normal to inspection Face and sinus: normal facial exam Mouth: oral mucosae normal Eyes General: appearance normal, both eyes and all related structures Neck Neck: normal visual inspection Chest Chest: normal inspection of the chest Resp Effort & Inspection: normal respiratory effort Auscultation: clear to auscultation bilaterally Cardio Rate: regular rate Rhythm: regular rhythm GI Inspection: normal to inspection Palpation: soft and nontender Auscultation: normal bowel sounds Back/Spine/Pelvis Cervical Spine: No cervical spinal tenderness Other: Scattered areas of ecchymosis noted to the midline and lateral back. There is healing ecchymosis noted overlying the sacrum with tenderness to palpation. Skin General skin exam: no rashes or lesions noted Neuro General: patient alert and patient awake Cognition: normal cognition Speech: speech normal Gait: normal gait Extrem General: normal to inspection, full ROM and capillary refill normal Other: Bilateral upper and lower extremities with normal range of motion without evidence of trauma. Psych Appearance: grossly normal Mental Status: mental status grossly normal Speech and Movement: speech and movement normal Affect: normal affect Thought Process: normal Objective Last Vital Signs Temp 36 C L 12/13/21 15:16 Pulse 59 L 12/13/21 15:16 Resp 18 12/13/21 15:16 BP 116/59 L 12/13/21 15:16 Pulse Ox 94 12/13/21 15:16 Laboratory Results - last 24 hr 12/12/21 12/12/21 12/12/21 15:05 15:05 15:05 WBC RBC Hgb Hct MCV MCH MCHC RDW Plt Count MPV Immature Gran % Neutrophils % Lymphocytes % Monocytes % Eosinophils % Basophils % Nucleated RBC % Absolute Neutrophils Absolute Lymphocytes Absolute Monocytes Absolute Eosinophils Absolute Basophils PT INR D-Dimer Sodium Potassium Chloride Carbon Dioxide Anion Gap BUN Creatinine Estimated GFR/1.73 m2 Glucose Calcium Phosphorus Magnesium Ferritin 1488 H Total Bilirubin Conjugated Bilirubin AST ALT Alkaline Phosphatase Creatine Kinase 2917 H C-Reactive Protein > 25.00 H Total Protein Albumin Procalcitonin 5.6 TSH Free T4 Urine Color Urine Clarity Urine pH Ur Specific [place] Urine Protein Urine Ketones Urine Blood Urine Nitrite Urine Bilirubin Urine Urobilinogen Ur Leukocyte Esterase Urine RBC Urine WBC Ur Epithelial Cells Urine Crystals Urine Bacteria Urine Casts Urine Mucus Ur Culture Indicated? Urine Glucose Add-On Test Request DONE 12/12/21 12/13/21 12/13/21 23:58 06:04 06:04 WBC 5.69 RBC 2.95 L Hgb 9.3 L Hct 27.4 L MCV 93 MCH 31.5 MCHC 33.9 RDW 12.5 Plt Count 131 MPV 10.5 Immature Gran % 0.4 Neutrophils % 90.1 Lymphocytes % 4.9 Monocytes % 4.4 Eosinophils % 0.0 Basophils % 0.2 Nucleated RBC % 0.0 Absolute Neutrophils 5.13 Absolute Lymphocytes 0.28 L Absolute Monocytes 0.25 Absolute Eosinophils 0.00 Absolute Basophils 0.01 PT INR D-Dimer Sodium 143 Potassium 4.6 Chloride 109 H Carbon Dioxide 23.6 Anion Gap 10.4 BUN 65 H Creatinine 1.7 H Estimated GFR/1.73 m2 39.18 Glucose 135 H Calcium 8.7 Phosphorus 4.1 Magnesium 2.4 Ferritin 1501 H Total Bilirubin 1.1 H Conjugated Bilirubin 0.4 H AST 137 H ALT 105 H Alkaline Phosphatase 82 Creatine Kinase 1881 H C-Reactive Protein > 25.00 H Total Protein 6.0 L Albumin 2.7 L Procalcitonin TSH 0.35 L Free T4 1.13 Urine Color Dark Yellow Urine Clarity Clear Urine pH 5.5 Ur Specific [place] 1.025 Urine Protein Negative Urine Ketones Trace H Urine Blood Trace-intact H Urine Nitrite Negative Urine Bilirubin Negative Urine Urobilinogen 0.2 Ur Leukocyte Esterase Negative Urine RBC 0-2 Urine WBC 0-2 Ur Epithelial Cells Rare Urine Crystals Negative Urine Bacteria Negative Urine Casts 3-5 Hyaline Urine Mucus Trace Ur Culture Indicated? No Urine Glucose Negative Add-On Test Request 12/13/21 06:04 WBC RBC Hgb Hct MCV MCH MCHC RDW Plt Count MPV Immature Gran % Neutrophils % Lymphocytes % Monocytes % Eosinophils % Basophils % Nucleated RBC % Absolute Neutrophils Absolute Lymphocytes Absolute Monocytes Absolute Eosinophils Absolute Basophils PT 10.2 INR 1.0 D-Dimer 5184 H Sodium Potassium Chloride Carbon Dioxide Anion Gap BUN Creatinine Estimated GFR/1.73 m2 Glucose Calcium Phosphorus Magnesium Ferritin Total Bilirubin Conjugated Bilirubin AST ALT Alkaline Phosphatase Creatine Kinase C-Reactive Protein Total Protein Albumin Procalcitonin TSH Free T4 Urine Color Urine Clarity Urine pH Ur Specific [place] Urine Protein Urine Ketones Urine Blood Urine Nitrite Urine Bilirubin Urine Urobilinogen Ur Leukocyte Esterase Urine RBC Urine WBC Ur Epithelial Cells Urine Crystals Urine Bacteria Urine Casts Urine Mucus Ur Culture Indicated? Urine Glucose Add-On Test Request
[2021-12-13] MEDS: REMDESIVIR 100 MG in Normal Saline 250 ML 250 MG IVPB (20:55)
[2021-12-13] MEDS: cefTRIAXone 2 GM/50 ML BAG IVPB (23:07)
[2021-12-13] MEDS: Melatonin 3 MG TAB PO (23:08)
[2021-12-14] VITALS (11 sets, daily range): BP systolic 109–146; BP diastolic 51–76; PULSE 41–140; RESP 18–20; TEMP 36–36.5; O2SAT 94–97
[2021-12-14] MEDS: Normal Saline 1,000 ML 100 ML IV ×3 (00:05→20:33)
[2021-12-14] MEDS: Levothyroxine 25 MCG TAB PO (05:24)
[2021-12-14 05:30] LABS: Vitamin D 25 Total 80.2 ng/mL (30-100)
[2021-12-14] MEDS: Normal Saline Flush 10 ML SYR IVP (08:22)
[2021-12-14] MEDS: Enoxaparin 80 MG/0.8 ML SYR 70 MG SC (08:22)
[2021-12-14] MEDS: Cholecalciferol (Vitamin D3) 1,000 UNIT TAB 2000 UNITS PO (08:23)
[2021-12-14] MEDS: Famotidine 20 MG TAB PO (08:24)
[2021-12-14] MEDS: guaiFENesin 600 MG TABCR PO ×2 (08:24→20:32)
[2021-12-14] MEDS: Zinc Sulfate 220 MG TAB PO (08:24)
[2021-12-14] MEDS: Tamsulosin 0.4 MG CAPCR PO ×2 (08:25→20:32)
[2021-12-14] MEDS: Ascorbic Acid 500 MG TAB 1000 MG PO ×2 (08:25→20:32)
[2021-12-14] MEDS: Finasteride 5 MG TAB PO (08:25)
[2021-12-14] MEDS: Dexamethasone 4 MG TAB 6 MG PO (08:26)
[2021-12-14] MEDS: DOXYCYCLINE 100 MG in Normal Saline 100 ML IVPB ×2 (10:06→22:11)
--- NOTE | 2021-12-14 10:54 | W.PM.PROGNOT ---
Date of Service Date of service: 12/14/21 Time of Service: 10:54 Assessment and Plan Assessment and plan (1) Secondary bacterial pneumonia: Status: Acute Assessment and plan: Present on admission, in setting of COVID-19. Continue doxycycline and ceftriaxone (bacteremia dose). Encourage pulmonary toilet. Concern for aspiration as well, given dysphagia - trial pureed diet with nectar thickened fluids and consult speech therapy. (2) Acute kidney injury: Status: Acute Assessment and plan: In setting of rhabdomyolysis, dehydration, and COVID-19, but also h/o urinary retention. creatinine improved from 2.3 to 1.7 continue IVF, monitoring I/O's, Cr, CPK Monitor bladder scans. No evidence of obstructive uropathy on CT. (3) Rhabdomyolysis: Status: Acute Assessment and plan: Contributing to ALEXIA. Hold simvastatin, true cause of the rhabdomyolysis is likely patient's fall and his COVID-19. Treat with IVF. Trend CPK, Cr. (4) COVID-19: Status: Acute Assessment and plan: Without clinical hypoxia. Will treat with remdesivir, supplement vitamins C, D, zinc. Enocurage pulmonary toilet. Abx for a superimposed bacterial process. decadron continued (5) Dysphagia: Status: Acute Assessment and plan: Onset coincides with cough; dysphagia is primarily for thin water and pills. Suspect that this has to do with irritation of the oropharynx from coughing. Trial a modified diet. Consult speech therapy. (6) Dehydration: Status: Acute Assessment and plan: As above - IVF (7) HILDA on CPAP: Assessment and plan: Provide CPAP. (8) Transaminitis: Status: Acute Assessment and plan: In setting of rhabdomyolysis, COVID-[address] of the abdomen, as well as a normal alk phos, it is safe to assume that gallbladder is not the culprit. This transaminitis pattern is more c/w rhabdomyolysis. Will trend as we are hydrating the patient. (9) Back pain: Status: Acute Assessment and plan: No evidence of fractures on CT. Pain from the fall is possible, but we need to ensure that the patient is not again bacteremic and does not again have septic discitis. Should his blood cultures come back positive, he will need an MRI of his spine. (10) Closed head injury: Status: Acute Assessment and plan: Monitor mental status. (11) Ambulatory dysfunction: Status: Acute Assessment and plan: Resulting in a fall. In setting of COVID-19, rhabdomyolysis. PT consulted. (12) Left groin pain: Status: Acute Assessment and plan: Nonemergent surgical consult. CT abdomen/pelvis did not mention a hernia, but clinically admission MD concerned (13) Constipation: Status: Chronic Assessment and plan: LIkely contributing to LUTS. Schedule a bowel regimen. (14) DVT prophylaxis: Status: Acute Assessment and plan: Therapeutic renally dosed lovenox (the patient has COVID-19 and is admitted to the medical surgical floor) (15) Discharge planning issues: Status: Acute Assessment and plan: DNR/DNI as confirmed on admission May require SNF on d/c. discussed with Dr Brito Subjective Subjective Patient reports: no new complaints Exam Const General: cooperative and no acute distress Orientation: alert, awake and oriented x3 HENMT Head: normal to inspection Face and sinus: normal facial exam Mouth: oral mucosae normal Eyes General: appearance normal, both eyes and all related structures Neck Neck: normal visual inspection Chest Chest: normal inspection of the chest Resp Effort & Inspection: normal respiratory effort Auscultation: clear to auscultation bilaterally Cardio Rate: regular rate Rhythm: regular rhythm GI Inspection: normal to inspection Palpation: soft and nontender Auscultation: normal bowel sounds Back/Spine/Pelvis Cervical Spine: No cervical spinal tenderness Other: Scattered areas of ecchymosis noted to the midline and lateral back. There is healing ecchymosis noted overlying the sacrum with tenderness to palpation. Skin General skin exam: no rashes or lesions noted Neuro General: patient alert and patient awake Cognition: normal cognition Speech: speech normal Gait: normal gait Extrem General: normal to inspection, full ROM and capillary refill normal Other: Bilateral upper and lower extremities with normal range of motion without evidence of trauma. Psych Appearance: grossly normal Mental Status: mental status grossly normal Speech and Movement: speech and movement normal Affect: normal affect Thought Process: normal Objective Last Vital Signs Temp 36.2 C L 12/14/21 08:38 Pulse 114 H 12/14/21 08:38 Resp 18 12/14/21 08:38 BP 146/76 H 12/14/21 08:38 Pulse Ox 95 12/14/21 09:52 Laboratory Results - last 24 hr 12/12/21 12/13/21 23:58 06:04 25-OH Vitamin D Total 80.2 Urine Color Dark Yellow Urine Clarity Clear Urine pH 5.5 Ur Specific [place] 1.025 Urine Protein Negative Urine Ketones Trace H Urine Blood Trace-intact H Urine Nitrite Negative Urine Bilirubin Negative Urine Urobilinogen 0.2 Ur Leukocyte Esterase Negative Urine RBC 0-2 Urine WBC 0-2 Ur Epithelial Cells Rare Urine Crystals Negative Urine Bacteria Negative Urine Casts 3-5 Hyaline Urine Mucus Trace Ur Culture Indicated? No Urine Glucose Negative
--- NOTE | 2021-12-14 12:10 | SPP_ITS ---
Date of service: 12/14/21 Time of Service: 12:10 Osvaldo Pastor was contacted following his PT appointment this date, over lunch. He was seated upright in bed and reported feeling much better today. He says when he woke up, something just felt different in his throat, and he felt better with eating and drinking, though does think he coughed a few times with breakfast. Patient with some confusion/difficulty following instructions/answering questions appropriately this date. Redirection largely successful. Word- retrieval errors continue this date. Physical therapy also noting similar cognitive symptoms. Per hospitalist, he may be discharged tomorrow. Objective/Assessment/Plan Objective Treatment Techniques & Outcomes: 1. Patient will tolerate IDDSI Level 4 pureed solids + Level 2 Mildly thickened liquids without s/sx aspiration provided training in/use of swallow strategies and aspiration precautions within 1 week. IN PROGRESS PO Trials observed this date: Mildly Thickened Liquids (Level 2) Thin Liquids (Level 0; via tsp, small sip via cup edge) Puree (Level 4, via tsp) Regular solids (Tonio cracker x 3 small bites) Oral phase s/sx noted: Mild prolonged mastication with solids. Pharyngeal phase s/sx noted: Mild delayed cough with thin>thick liquids>puree, even with use of chin tuck. Slight wet vocal quality noted with thin liquids. Improved with reminders for cough & reswallow, small sips, and use of thickened liquids. Patient reports pharyngeal stasis with puree. 2. Patient will demonstrate understanding of education related to normal vs disordered swallowing, impact of COVID19 on swallow function, relationship between respiration and deglutition, and recommended strategies for minimizing risks of aspiration pna/airway occlusion within 1 week. IN PROGRESS Patient w spontaneous recall of primary s/sx aspiration this date and reports recent occurrances. Partial recall of primary SWALLOW strategies (chin tuck) but required reminders for cough & reswallow, use of thickened liquids & rationale. Required additional instruction/review regarding oral care and rationale. Assessment Patient continues with reduced tolerance of thin liquids, benefits from chin tuck maneuver and cough/reswallow with reminders. Based on his report and observation, does appear somewhat improved over prior day, but not ready to upgrade to baseline diet of thin liquids and soft solids. Provided recommendations to patient, should he return home before we see him again, to continue to eat slick/pureed solids or very soft solids such as bananas, very soft solids. He would benefit from [facility] home health services if possible given s/sx dysphagia persist. When covid is resolved recommend outpatient referral for speech therapy and modified barium swallow study as per his report his dysphagia symptoms appear to be an exacerbation over baseline dysphagia. Instrumentation:?May benefit from both Esophagram (barium swallow study) in addition to VFSE/MBSS (modified barium swallow study) given concern(s) for both esophageal stricture / hx GI issues and concern for aspiration of po intake (liquid consistencies).?Would prioritize esophagram and/or VFSE/MBSS while on acute unit; given reported changes in vocal quality since 2019, may also benefit from outpatient laryngoscopy to assess laryngeal function, only if airway protection concerns persist. Specialist referrals: RD Plan Plan: Therapy: 3-5x/week to address dysphagia including diagnostic and therapeutic services; [facility] [employer] [facility] to follow while on unit.? Recommendations Recommendations: Diet Texture Modification(s): IDDSI Level(s) 4-Pureed Solids, 2-Mildly Thick Liquids *Chin tuck + strong cough, re-swallow for all p.o. intake *May trial further thin liquids w [employer] only at this time Medication Intake: Whole with 4-Extremely Thick Liquids or 4-Pureed solids, 1 at a time Alter medications only as advised by MD or Pharmacist RISK MANAGEMENT: Oral hygiene q4h/every 4 hours and before/after PO intake using friction with toothbrush on all oral structures as tolerated Suction PRN HOB upright as tolerated; upright for all PO intake. Encourage physical mobility as tolerated. Level of Assistance/Supervision: Distant supervision for all PO intake PO intake only when awake/alert? Strategies/Adaptations/Assistive Equipment: -?Chin tuck for all swallows; follow with strong cough + re-swallow - Via teaspoon or as advanced by [employer] Reduce auditory and/or visual distractions when eating, Provide verbal and/or visual cues to use recommended strategies, Small sips and bites when eating, Slow rate of intake, Avoid straws, Multiple swallows, Alternate intake of liquids and solids, Small+frequent meals throughout day / per MD, RD recommendations to support nutritional intake, maintain hydration Posture/Positioning Needs: Maintain upright position at least 30 minutes after meals Avoid meals/snacks 2-3 hours prior to reclining/sleeping Sleep with head of bed elevated to reduce likelihood of nocturnal reflux Additional Notes: 35 minutes [id number] Dysphagia Treatment Coding
--- NOTE | 2021-12-14 13:17 | CMPROGNOTE_ITS ---
- If Service Date Differs Date of service: 12/14/21 Time of Service: 13:17 Care Management Progress Note S/O: Dawit is currently on Covid precautions, therefore CM did not meet with him in person. CM talked to Dawit on the phone, who reported that per provider, he will likely be discharged home tomorrow. He is agreeable to this plan, as he feels that he is improving. CM discussed home health services, and he is agreeable to accepting HH upon discharge, for a short period of time. He reported that his niece, Patricia, will drive him home when he is ready to discharge. CM will continue to follow. A: Willy is a 76 year old male admitted to [facility] on 12/12/21 with Covid 19 pneumonia, ALEXIA, dysphagia. P: Willy is currently being treated for pneumonia, being treated with IV abx. He will return home when medically cleared with new orders for HH Rn, PT, OT, [employer]. He will be driven home via private vehicle, and will follow up with his PCP and discharge plan of care. CM will continue to assess for needs.
--- NOTE | 2021-12-14 14:27 | PT.INTREAT ---
Date of service: 12/14/21 Time of Service: 11:37 PT Notes Visit Reasons: COVID19 Pneumonia,ALEXIA,Dysphagia,Amb Dysfunction Inpatient Physical Therapy Treatment Note [facility] Date: 12/14/2021 PRECAUTIONS: Fall, Activity as tolerated, Covid-19 SUBJECTIVE: Willy is pleasant and agreeable to participating in PT. He reports that he is feeling much better today. He indicates some confusion regarding medication that he is taking at home versus here. He states that he hopes to return to home soon. OBJECTIVE: PAIN: No c/o pain BED MOBILITY/TRANSFERS Supine-sit: I with HOB flat Sit-supine: I with HOB flat Sit-stand: SBA Stand-sit: SBA GAIT Assistive Device: No AD FWW Weight bearing: Full Assist: Min A - CGA without AD CGA-SBA with FWW Distance: 20' without AD 100' with FWW Deviation: Balance deficit, unsteadiness, holding wall without AD THEREX: Patient was instructed in standing hip flexion, extension and abduction with FWW support, as well as seated bicep curls, all x30 reps each, bilaterally. ASSESSMENT: Patient demonstrates unsteady gait and balance deficit with ambulation without use of assistive device support. Patient's safety with gait training improved with use of FWW. PLAN: Continue with gait training with least restrictive device, as well as with global strengthening for improved mobility. TREATMENT CODE/TIME: 42 minutes; 02005 x2, 25165 (11:37)
--- NOTE | 2021-12-14 18:15 | INDS_ITS ---
Date of service: 12/14/21 PT Notes Visit Reasons: COVID19 Pneumonia,ALEXIA,Dysphagia,Amb Dysfunction Physical Therapy Inpatient Initial Evaluation Date: 12/14/2021 Dates of Services: 12/13/2021 through 12/14/2021 This is a clinical summary of care provided for the duration of dates listed above. No charge was made in the completion of this documentation. Referring Doctor: Florence Lowery MD PT Orders: PT CONSULT: Limited ability. Precautions: Fall. Standard.? Activity as tolerated.? COVID-19 positive. Patient Profile/Admitting Diagnosis: Patient is a 76-year-old male who presented to the ED on 12/12/2021 with diagnosis of COVID-19 infection, bacterial pneumonia, acute kidney injury, rhabdomyolisis, dysphagia, dehydration, HILDA and is on CPAP, transaminitis, back pain, ambulatory dysfunction, left groin pain, and constipation. PMHX: All Active Problems?(Updated 12/13/21 @ 01:18 by Florence Lowery MD) Constipation (Chronic) Left groin pain (Acute) Transaminitis (Acute) Ambulatory dysfunction (Acute) Closed head injury (Acute) Back pain (Acute) Dysphagia (Acute) Rhabdomyolysis (Acute) Secondary bacterial pneumonia (Acute) COVID-19 (Acute) Multifocal pneumonia (Acute) Acute kidney injury (Acute) Dehydration (Acute) Feeling of incomplete bladder emptying (Acute) Suprapubic pressure (Acute) Difficulty in urination (Acute) Abdominal pain (Acute) Anemia, blood loss (Acute) Anemia (Chronic) Anemia of chronic disease (Acute) SBO (small bowel obstruction) (Acute) Acute confusion (Acute) Vomiting (Acute) Essential hypertension (Chronic) Constipation (Acute) Lumbar discitis (Acute) MSSA bacteremia (Acute) Urinary retention (Acute) BPH (benign prostatic hyperplasia) (Chronic) PSVT (paroxysmal supraventricular tachycardia) (Acute) Discharge planning issues (Acute) DVT prophylaxis (Acute) Ambulatory dysfunction (Acute) Neck pain (Acute) Back pain (Acute) Gram-positive cocci bacteremia (Acute) Left inguinal hernia (Chronic) Medical History?(Updated 12/13/21 @ 01:18 by Florence Lowery MD) Conductive hearing loss Dehydration Epidural abscess (~10/09/13) Erectile dysfunction History of Clostridioides difficile colitis (~10/2013) History of small bowel obstruction (07/12/15) MSSA (methicillin susceptible Staphylococcus aureus) septicemia (10/09/13) in setting of ruputured appendicitis and found to have disciitis epidural abscess, [facility], [place], [place]; Dr. Casey Mixon, infectious? disease HILDA on CPAP Osteomyelitis of vertebra of thoracolumbar region (~10/09/13) treated w/ 6 weeks of Ancef; seen by Dr. Casey Mixon, infectious disease, [facility], [place], [place]; completed treatment 11/20/ ?? 2013; complicated by C. difficile colitisPanic anxiety syndrome Sensorineural hearing loss Surgical History? H/O sinus surgery History of bilateral cataract extraction History of cholecystectomy (~1998) History of tonsillectomy and adenoidectomy S/P laparoscopic appendectomy (10/09/13) S/P left inguinal hernia repair Social History/Home Situation: Patient lives alone on the second floor of an apartment building with no steps to enter.? He uses an elevator to reach the entrance of his apartment.? He is independent with all activities of daily living not requiring any assistive ambulatory device nor adaptive equipment.? He still drives.? His passed 5 years ago and he has been seeing a counselor to manage his grief. Niece helps with any errands as needed.? regularly walks downtown distances without an AD. Equipment Owned/DME: FWW, SPC Subjective: NT. See most recent ARMOR RECONNAISSANCE SPECIALIST notes. Objective: General Observation: NT. See most recent ARMOR RECONNAISSANCE SPECIALIST notes. Mental Status: NT. See most recent ARMOR RECONNAISSANCE SPECIALIST notes. Pain: NT. See most recent ARMOR RECONNAISSANCE SPECIALIST notes. ROM: Right Upper Extremity: ? Shoulder Flexion WFL. Shoulder abduction WFL. Elbow flexion WFL. Wrist flexion WFL. Opening and closing of hand WFL. Left Upper Extremity:? Shoulder Flexion WFL. Shoulder abduction WFL. Elbow flexion WFL. Wrist flexion WFL. Opening and closing of hand WFL. Right Lower Extremity: Hip flexion WFL. Hip abduction WFL. Knee flexion WFL. A nkle dorsiflexion WFL. Ankle plantarflexion WFL. Left Lower Extremity: Hip flexion WFL. Hip abduction WFL. Knee flexion WFL. Ankle dorsiflexion WFL. Ankle plantarflexion WFL. Strength: Right Upper Extremity: Shoulder flexors 4/5. Shoulder abductors 4/5. Elbow flexors 4/5. Elbow extensors 4/5. Clinical Social Work Therapist strong. Left Upper Extremity: Shoulder flexors 4/5. Shoulder abductors 4/5. Elbow flexors 4/5. Elbow extensors 4/5. Clinical Social Work Therapist strong. Right Lower Extremity: Hip flexors 4/5. Hip abductors 4/5. Knee flexors 4/5. Knee extensors 4/5. Ankle dorsiflexors 4/5. Ankle plantarflexors 4-/5. Left Lower Extremity:Hip flexors 4/5. Hip abductors 4/5. Knee flexors 4/5. Knee extensors 4/5. Ankle dorsiflexors 4/5. Ankle plantarflexors 4-/5. Sensation: Intact as to pain and pressure on bilateral lower extremities. ? BED MOBILITY/TRANSFERS? Supine-sit: I with HOB flat? Sit-supine: I with HOB flat ? Sit-stand: S? Stand-sit: S ? GAIT? Assistive Device: No AD FWW? Weight bearing: Full Assist: SBA without AD SBA-S with FWW ? Distance:? 60' without AD 40' with FWW ? Deviation: Improved steadiness, appropriate pacing? Balance: Static Sitting: Normal Dynamic Sitting: Normal Static Standing: Fair Dynamic Standing: Fair Assessment: Patient presents with clinical signs and symptoms consistent with current/admitting diagnoses that have resulted to mobility limitations, gait instability, generalized weakness, and impairment of motor control as demonstrated by the following impairment level findings: 1.? Decreased strength to B UE and B LE major muscle groups 2.? Impaired dynamic standing balance 3.? Impaired activity tolerance Impairments are contributing to the following functional limitations: 1.? Increased dependence with transfers 2.? Inability to safely ambulate without assistive device and physical assistance 3.? Increase completion time for mobility ADL performance 4.? Increased fall risk Goals: Goals X1 week 1. Sit-Stand independent with SPC MET 2. Stand-Sit independent with SPC MET 3. Bed-Chair independent with SPC NOT MET 4. Chair-Bed independent with SPC NOT MET 5. Independent gait on level surface with use of SPC for at least 800 feet without report of pain nor dyspnea NOT MET 6. Independent stair negotiation while holding onto bilateral rails for at least 10 steps without report of pain nor dyspnea NOT MET 7. Good static and dynamic standing balance/tolerance NOT MET DISCHARGE RECOMMENDATIONS: Patient will benefit from home health PT services in order to progress mobility level using least restrictive assistive ambulatory device, assess home safety, identify additional equipment needs, and establish a functional maintenance program that will increase ability of patient to remain at home. TREATMENT CODE/TIME: MD Thank you very much for this referral. Ariane Poe PT, DPT, CLT [facility] at [place], [place]
[2021-12-14] MEDS: Docusate Sodium 100 MG/10 ML CUP PO (20:37)
[2021-12-14] MEDS: Melatonin 3 MG TAB PO (22:14)
[2021-12-14] MEDS: cefTRIAXone 2 GM/50 ML BAG IVPB (22:23)
[2021-12-14] MEDS: REMDESIVIR 100 MG in Normal Saline 250 ML 250 MG IVPB (22:36)
[2021-12-15 01:55] VITALS: BP 130/63; PULSE 44; RESP 18; TEMP 36.7; O2SAT 96
[2021-12-15 05:36] VITALS: BP 160/67; PULSE 60; RESP 18; TEMP 35.9; O2SAT 96
[2021-12-15] MEDS: Levothyroxine 25 MCG TAB PO (05:39)
[2021-12-15 07:43] VITALS: TEMP 36
[2021-12-15 07:58] VITALS: PULSE 60
[2021-12-15 08:00] VITALS: BP 147/67; PULSE 60; RESP 22; TEMP 36
[2021-12-15 08:48] LABS: ALT 188 U/L (16-63); AST 116 U/L (15-37); Albumin 2.7 g/dL (3.4-5.0); Alkaline Phosphatase 101 U/L (46-116); BUN 42 mg/dL (7-18); Bilirubin, Total 0.8 mg/dL (0.2-1.0); CREATININE 1.2 mg/dL (0.70-1.30); Calcium 8.8 mg/dL (8.5-10.1); Chloride 113 mmol/L (98-107); Estimated GFR 58.56 (mL/min/1.73m2); Glucose 97 mg/dL (74-106); Potassium 3.6 mmol/L (3.5-5.1); Sodium 145 mmol/L (136-145); Total Protein 5.9 g/dL (6.4-8.2)
[2021-12-15] MEDS: Dexamethasone 4 MG TAB 6 MG PO (09:14)
[2021-12-15] MEDS: Ascorbic Acid 500 MG TAB 1000 MG PO (09:15)
[2021-12-15] MEDS: Zinc Sulfate 220 MG TAB PO (09:15)
[2021-12-15] MEDS: Cholecalciferol (Vitamin D3) 1,000 UNIT TAB 2000 UNITS PO (09:16)
[2021-12-15] MEDS: Tamsulosin 0.4 MG CAPCR PO (09:17)
[2021-12-15] MEDS: Finasteride 5 MG TAB PO (09:17)
[2021-12-15] MEDS: Famotidine 20 MG TAB PO (09:18)
[2021-12-15] MEDS: guaiFENesin 600 MG TABCR PO (09:18)
[2021-12-15] MEDS: Enoxaparin 80 MG/0.8 ML SYR 70 MG SC (09:19)
--- NOTE | 2021-12-15 10:18 | DSE_ITS ---
Date of service: 12/15/21 Time of Service: 10:18 DS: Diagnosis Discharge Diagnosis (1) Secondary bacterial pneumonia: Status: Acute (2) Acute kidney injury: Status: Acute (3) Rhabdomyolysis: Status: Acute (4) COVID-19: Status: Acute (5) Dysphagia: Status: Acute (6) Dehydration: Status: Acute (7) HILDA on CPAP: (8) Transaminitis: Status: Acute (9) Back pain: Status: Acute (10) Closed head injury: Status: Acute (11) Ambulatory dysfunction: Status: Acute (12) Left groin pain: Status: Acute (13) Constipation: Status: Chronic Discharge Plan Disposition Patient Disposition: HOME W/HOME HEALTH SERVICE Condition: Stable Discharge Details Reason For Visit: COVID19 Pneumonia,ALEXIA,Dysphagia,Amb Dysfunction Admit Date/Time: 12/12/21 19:04 Admit Provider: Florence Lowery Attending Provider: Florence Lowery Primary Care Provider: Renée Bailey Hospital Course Hospital Course: This is a 76 year old male who is fully vaccinated and boosted x 2 against COVID-19 with history of MSSA bacteremia with epidural abscess in 2014 as well as in MSSA septic discitis at L2-3 and L3-4 in 2020, as well as PSVT, HTN, BPH, HILDA on CPAP who was referred to [facility] ED by [facility] for evaluation of dysphagia for pills which had developed over the previous 4 days , cough productive of clear sputum, possible shortness of breath, and generalized weakness resulting in a fall in the shower yesterday in setting of a diagnosis of COVID-19 made at the urgent care today by a rapid antigen test. His intake had been poor due to this dysphagia, and the patient was noted to be coughing on swallowing trial of clear liquids at the urgent care. The patient had been getting weaker over the course of about a week and had developed a cough, which was getting better. However, the leg weakness resulted in a fall in the shower yesterday, hitting his head, now with reports of lower back pain. He was down for 4 hrs. Per ER provider, he had preserved rectal tone. CT of the thoracic and lumbar spine showed stable/unchanged? L2-L3 diffuse disc bulging causing moderate canal stenosis. CT head was negative. CT c-spine showed bilateral upper lung infiltrates, R>L, with a small right pleural effusion as well as arthritis. CT chest showed LLL and RUL infiltrates concerning for pneumonia with subpleural interstitial markings in B lung, as well as bronchiectasis of bilateral lower lobes. There was no evidence of fracture on any of the images. His O2 sat in the ED was 94% on RA. He was afebrile. He was found to have an acute kidney injury with a Cr of 2.3 (baseline of 1.1). He had elevated AST and ALT with a normal alk phos, and his CPK was elevated to 2917.? He also had an elevated pr ocalcitonin of 5.6 ng/mL. Clinically, the patient appeared dry in the ED. Hospitalist admission for treatment of a bacterial pneumonia in setting of COVID-19 as well as his ALEXIA was requested. In addition, the patient reports pain in LLQ/L groin and is wondering if his hernia could be causing anything. Of note, preliminary read of the CT abdomen/pelvis does not mention an inguinal or a femoral hernia. He has been constipated - it has been 2 days since his last BM. He is known to urology for incomplete bladder emptying. On arrival on the floor, he was saturating 94% on RA but was placed on 2L of O2 because of reports of wearing a CPAP at night. While on med/surg he remained medically stable. He was treated with remdesivir and decadron and had no oxygen requirements. He should continue to isolate for an additional 2-3 days. He will complete 5 more days of levaquin to treat pneumonia. He was followed by speech therapy and dietary changes were recommended. He would benefit from FREIGHT REPRESENTATIVE home health services if possible given s/sx dysphagia persist. When covid is resolved recommend outpatient referral for speech therapy and modified barium swallow study as per his report his dysphagia symptoms appear to be an exacerbation over baseline dysphagia. Instrumentation:?May benefit from both Esophagram (barium swallow study) in addition to VFSE/MBSS (modified barium swallow study) given concern(s) for both esophageal stricture / hx GI issues and concern for aspiration of po intake (liquid consistencies).?Would prioritize esophagram and/or VFSE/MBSS while on acute unit; given reported changes in vocal quality since 2019, may also benefit from outpatient laryngoscopy to assess laryngeal function, only if airway protection concerns persist. He was eating and drinking well with these modifications. He was seen by physical therapy and was safely re-ambulated. He is recommended to continue with home health services. He was noted to have periods of confusion, possibly due d/t underlying illness and new environment but suspect some underlying cognitive impairment that should be further evaluated by pcp. He was able to be re-oriented. His niece is picking him up and he will be discharged to home with home health nursing, PT/OT, speech and medical office professional instructor. discussed with Dr Brito. Home Meds and New Rx's Prescriptions: New levofloxacin 750 mg tablet 750 mg PO DAILY Qty: 5 0RF Continued lisinopril 2.5 mg tablet 2.5 mg PO DAILY (DME) vacuum erection device system kit See Dose Instructions .ROUTE .MEDSUPPLY Qty: 1 0RF Dose Instruction: As directed Rx Instructions: As directed simvastatin 10 MG tablet 10 mg PO DAILY levothyroxine [Synthroid] 25 MCG tablet 25 mcg PO DAILY tamsulosin 0.4 MG capsule 0.4 mg PO BID finasteride [Proscar] 5 MG tablet 5 mg PO DAILY Discharge Instructions Instructions: Pneumonia (DC), COVID-19 (Coronavirus Disease 2019) (DC) Additional Instructions: take your antibiotic as prescribed even if you feel better. continue to eat slick/pureed solids or very soft solids such as bananas, very soft solids. Stand Alone Forms: Nursing Discharge Form Referrals: Abena Baptiste [SPEECH LANGUAGE PATHOLOGIST] - (home health to follow outpatient) Renée Bailey [Primary Care Provider] - (Please call Saturday to make an appointment in the next 2 weeks ) Activity:: Activity as Tolerated Equipment/Supplies:: No Equipment Needed Diet:: As Tolerated Discharge Orders Discharge Orders: Discharge Order (Routine); Ordered 12/15/21 Ordered By: Tran Flores Discharge Data Discharge Date/Time-TO BE ENTERED AT DEPARTURE: 12/15/21 13:40 DS: Summary Time Spent with Patient providing and/or coordinating discharge services: Greater than 30 minutes Status at Discharge Functional status at discharge: independent ambulation Overall status at discharge: patient is progressing back to baseline Mental Status: mental status grossly normal Speech and Movement: speech and movement normal Mood: congruent mood Affect: normal affect Exam Const General: cooperative and no acute distress Orientation: alert, awake and oriented x3 HENMT Head: normal to inspection Face and sinus: normal facial exam Mouth: oral mucosae normal Eyes General: appearance normal, both eyes and all related structures Neck Neck: normal visual inspection Chest Chest: normal inspection of the chest Resp Effort & Inspection: normal respiratory effort Auscultation: clear to auscultation bilaterally Cardio Rate: regular rate Rhythm: regular rhythm GI Inspection: normal to inspection Palpation: soft and nontender Auscultation: normal bowel sounds Back/Spine/Pelvis Other: Scattered areas of ecchymosis noted to the midline and lateral back. There is healing ecchymosis noted overlying the sacrum with tenderness to palpation. Skin General skin exam: no rashes or lesions noted Neuro General: patient alert and patient awake Gait: normal gait Extrem General: normal to inspection Other: Bilateral upper and lower extremities with normal range of motion without ev idence of trauma. Psych Appearance: grossly normal Mental Status: mental status grossly normal Speech and Movement: speech and movement normal Mood: congruent mood Affect: normal affect Thought Process: normal DS: Data Vitals/I&O Vitals and I&O: Vital Signs Temperature 36 C L 12/15/21 08:00 Temperature Source Tympanic 12/15/21 08:00 Pulse 60 12/15/21 08:00 Pulse Rhythm Regular 12/14/21 22:40 Respiratory Rate 22 12/15/21 08:00 Respiratory Effort 12/15/21 07:43 Respiratory Depth Normal 12/15/21 07:43 Respiratory Pattern Normal 12/15/21 07:43 Blood Pressure 147/67 H 12/15/21 08:00 Pulse Oximetry 96 12/15/21 05:36 Oxygen Delivery Method Room Air 12/15/21 08:00 Oxygen Flow Rate 0 12/15/21 08:00 Pain Level 0 12/15/21 08:00 Comment 12/13/21 02:55 Intake & Output 12/14/21 12/14/21 12/15/21 11:59 23:59 11:59 Intake Total 935 / 3115 2180 / 3115 530 / 530 Output Total 1025 / 1831 806 / 1831 320 / 320 Balance -90 / 1284 1374 / 1284 210 / 210 Weight 68.2 kg 69.7 kg Intake: IV 935 / 2035 1100 / 2035 350 / 350 Oral 1080 / 1080 180 / 180 Output: Urine 825 / 1575 750 / 1575 320 / 320 Post Void Residual 200 / 256 56 / 256 Other: Urine Color Yellow Yellow Yellow Urine Appearance Clear Clear Clear Urine Odor None Comment pt voided 120 after bladder scan Stool Size Moderate Stool Characteristics Soft Brown Voiding Methods Urinal Urinal Data Completed and Pending Labs on day of discharge: Labs from last 24 hours 12/15/21 08:20 Sodium 145 Potassium 3.6 D Chloride 113 H Carbon Dioxide 24.0 Anion Gap 8.0 BUN 42 H Creatinine 1.2 Estimated GFR/1.73 m2 58.56 Glucose 97 Calcium 8.8 Total Bilirubin 0.8 AST 116 H ALT 188 H Alkaline Phosphatase 101 Total Protein 5.9 L Albumin 2.7 L Preliminary micro results at discharge 12/12/21 20:30 Blood Culture - Preliminary Blood NO GROWTH 48 HOURS 12/12/21 20:20 Blood Culture - Preliminary Blood NO GROWTH 48 HOURS PFSH All Active Problems (Updated 12/13/21 @ 01:18 by Florence Lowery MD) Constipation (Chronic) Left groin pain (Acute) Transaminitis (Acute) Ambulatory dysfunction (Acute) Closed head injury (Acute) Back pain (Acute) Dysphagia (Acute) Rhabdomyolysis (Acute) Secondary bacterial pneumonia (Acute) COVID-19 (Acute) Multifocal pneumonia (Acute) Acute kidney injury (Acute) Dehydration (Acute) Feeling of incomplete bladder emptying (Acute) Suprapubic pressure (Acute) Difficulty in urination (Acute) Abdominal pain (Acute) Anemia, blood loss (Acute) Anemia (Chronic) Anemia of chronic disease (Acute) SBO (small bowel obstruction) (Acute) Acute confusion (Acute) Vomiting (Acute) Essential hypertension (Chronic) Constipation (Acute) Lumbar discitis (Acute) MSSA bacteremia (Acute) Urinary retention (Acute) BPH (benign prostatic hyperplasia) (Chronic) PSVT (paroxysmal supraventricular tachycardia) (Acute) Discharge planning issues (Acute) DVT prophylaxis (Acute) Ambulatory dysfunction (Acute) Neck pain (Acute) Back pain (Acute) Gram-positive cocci bacteremia (Acute) Left inguinal hernia (Chronic) Medical History (Updated 12/13/21 @ 01:18 by Florence Lowery MD) Conductive hearing loss Dehydration Epidural abscess (~10/09/13) Erectile dysfunction History of Clostridioides difficile colitis (~10/2013) History of small bowel obstruction (07/12/15) MSSA (methicillin susceptible Staphylococcus aureus) septicemia (10/09/13) in setting of ruputured appendicitis and found to have disciitis epidural abscess, [facility], [place], [place]; Dr. Casey Mixon, infectious disease HILDA on CPAP Osteomyelitis of vertebra of thoracolumbar region (~10/09/13) treated w/ 6 weeks of Ancef; seen by Dr. Casey Mixon, infectious disease, [facility], [place], [place]; completed treatment 11/20/2013; complicated by C. difficile colitis Panic anxiety syndrome Sensorineural hearing loss Surgical History H/O sinus surgery History of bilateral cataract extraction History of cholecystectomy (~1998) History of tonsillectomy and adenoidectomy S/P laparoscopic appendectomy (10/09/13) S/P left inguinal hernia repair Social History Smoking/Tobacco Use Status: Former Tobacco Use Smoking risk assessment performed?: Yes Alcohol Intake: never Drug use: Never Substance use type: does not use Do you feel safe at home: Yes Do you feel safe in your relationship?: Yes
[2021-12-15] MEDS: DOXYCYCLINE 100 MG in Normal Saline 100 ML IVPB (10:44)
[2021-12-15 11:51] VITALS: PULSE 68
--- NOTE | 2021-12-15 12:15 | W.SPSTP ---
Date of service: 12/15/21 Time of Service: 12:15 Osvaldo Pastor was contacted at bedside this date prior to discharge home with home-health services. He reports he continues to feel his swallow is improving, but says he still coughs during meals a little bit. Unclear if this is baseline cough 2/2 infection or 2/2 dysphagia. No baseline coughing was noted prior to PO trials observed this date. Objective/Assessment/Plan Objective Treatment Techniques & Outcomes: 1. Patient will tolerate IDDSI Level 4 pureed solids + Level 2 Mildly thickened liquids without s/sx aspiration provided training in/use of swallow strategies and aspiration precautions within 1 week. IN PROGRESS PO Trials observed this date: Thin Liquids (Level 0; small sip via cup edge) Puree (Level 4, via tsp) Regular solids (Cracker x 5 small? bites) Oral phase s/sx noted: Mild prolonged mastication with solids. Pharyngeal phase s/sx noted: Mild delayed cough x1 with thin liquids. Benefitted from reminders for chin tuck, cough & reswallow, small sips. Patient continues to report some pharyngeal stasis with puree. 2. Patient will demonstrate understanding of education related to normal vs disordered swallowing, impact of COVID19 on swallow function, relationship between respiration and deglutition, and recommended strategies for minimizing risks of aspiration pna/airway occlusion within 1 week. IN PROGRESS Patient w spontaneous recall of primary s/sx aspiration this date and reports recent occurrances. Partial recall of primary SWALLOW strategies (chin tuck) but required reminders for cough & reswallow. Independent recall and rationale for oral care. Assessment Patient appears with improved thin liquids, benefits from chin tuck maneuver and cough/reswallow with reminders. Based on his report and observation, does appear with continued improvement over initial evaluation. He is likely to tolerate very soft/bite sized, minced&moist, and puree textures as well as thin liquids at home with minimal s/sx aspiration PROVIDED he continues with strategy training to ensure carryover of recommended strategies and to ensure safe tolerance in home environment. Provided recommendations to patient, should he return home before we see him again, to continue to eat slick/pureed solids or very soft solids such as bananas, very soft steamed veggies, etc. He would benefit from MEDICAL PRACTICE ADMINISTRATOR home health services if possible given s/sx dysphagia persist. When covid is resolved and patient is able, recommend outpatient referral for speech therapy and modified barium swallow study as per his report his dysphagia symptoms appear to be an exacerbation over baseline dysphagia. Plan Plan: Patient to discharge home with MEDICAL PRACTICE ADMINISTRATOR services. MEDICAL PRACTICE ADMINISTRATOR to coordinate outpatient MBSS when patient is able. Recommendations Recommendations: Diet Texture Modification(s): IDDSI Level(s) 4-Pureed Solids, up to 6-Soft/Bite size solids (very soft preferred, such as steamed vegetables, banana, etc) 0-Thin Liquids *Chin tuck + strong cough, re-swallow for all p.o. intake Medication Intake: Whole with 4-Extremely Thick Liquids or 4-Pureed solids, 1 at a time Alter medications only as advised by MD or Pharmacist RISK MANAGEMENT: Oral hygiene q4h/every 4 hours and before/after PO intake using friction with toothbrush on all oral structures as tolerated HOB upright as tolerated; upright for all PO intake. Encourage physical mobility as tolerated. Level of Assistance/Supervision: Distant supervision for all PO intake PO intake only when awake/alert? Strategies/Adaptations/Assistive Equipment: -?Chin tuck for all swallows; follow with strong cough + re-swallow - Small sip via cup edge Reduce auditory and/or visual distractions when eating, Provide verbal and/or visual cues to use recommended strategies, Small sips and bites when eating, Slow rate of intake, Avoid straws, Multiple swallows, Alternate intake of liquids and solids, Small+frequent meals throughout day / per MD, RD recommendations to support nutritional intake, maintain hydration Posture/Positioning Needs: Maintain upright position at least 30 minutes after meals Avoid meals/snacks 2-3 hours prior to reclining/sleeping Sleep with head of bed elevated to reduce likelihood of nocturnal reflux Additional Notes: 35 minutes 19858 Dysphagia Treatment Coding
--- NOTE | 2021-12-15 13:18 | PDOC.HHF2F ---
Home Health Certification Home Health Certification: 1. Encounter Date and Reason I certify that Willy Hanson was seen by Tran Flores on 12/15/21 and that I had a [id number] encounter with this patient that meets the physician face to face encounter requirements. 2. Clinical Findings Supporting Skilled Need and Homebound Status I certify that home health services are medically necessary, include either intermittent fdc and/or physical/speech therapy, and that this patient is homebound in that absences from the home require considerable and taxing effort and are infrequent or of short duration, or are attributable to the need to receive medical care. [X] (a) Attached documentation from encounter provides clinical findings supporting skilled need and homebound status (including what assistance patient requires to leave the home). The encounter with the patient was in whole, or in part, for the following medical condition, which is the primary reason for home health care: COVID19 Pneumonia,ALEXIA,Dysphagia,Amb Dysfunction Long-Term: routine nursing evaluation, medication oversight and monitoring. Physical and Occupational Therapy: routine home safety evaluation, gait evaluation, strengthening, and recommendations Speech Therapy: ?3-5x/week to address dysphagia including diagnostic and therapeutic services STALLION KEEPER: routine evaluation and oversight Homebound: patient is unable to safely leave the house unattended due to decreased strength and endurance, unsteady gait, cognitive impairement 3. Certification and Authentication I certify that I composed the above information based on my clinical judgement relating to this patient's medical condition and, if applicable, clinical findings communicated to me by the NPP or inpatient physician who performed the Home Health Referral. All further orders will be obtained through _SG HICKS NP _(Community Based Physician - PCP)
--- NOTE | 2021-12-15 15:21 | CMDISCH_ITS ---
- If Service Date Differs Date of service: 12/15/21 Time of Service: 15:21 LACE Index Scoring Tool - Questions: Length of Stay (in days): 3 Acuity (Admit via E.D.?): Yes E.D. Visits: 3 - Answers: Total Score: 9 Risk of Readmission: Low Risk Care Management Discharge Reason for Hospitalization: Covid 19 Pnuemonia, ALEXIA, dysphagia Discharge Plan: Willy returned home today with new orders for HH RN, PT, OT, ENROLLMENT COUNSELOR. His niece, Patricia drove him home via private vehicle. Patricia offered for him to stay with her for a short time, but he declined, stating that he feels ready to return home. He will follow up with his PCP and discharge plan of care. Patient/Family Education Needs: Review discharge instructions and limitations, discussion of self care needs including ask me three. Services Needed at Discharge: Home Health Care Services (HH RN, PT, OT, ENROLLMENT COUNSELOR)
--- NOTE | 2021-12-15 15:47 | PT.INTREAT ---
Date of service: 12/15/21 Time of Service: 11:56 PT Notes Visit Reasons: COVID19 Pneumonia,ALEXIA,Dysphagia,Amb Dysfunction Inpatient Physical Therapy Treatment Note [facility] Date: 12/15/2021 PRECAUTIONS: Fall, Activity as tolerated, Covid-19 SUBJECTIVE: Willy is pleasant and agreeable to participating in PT. He reports that he is feeling much better today and feels much steadier on his feet. He reports that he feels he is ready to discharge to home safely. OBJECTIVE: PAIN: No c/o pain BED MOBILITY/TRANSFERS Supine-sit: I with HOB flat Sit-supine: I with HOB flat Sit-stand: S Stand-sit: S GAIT Assistive Device: No AD FWW Weight bearing: Full Assist: SBA without AD SBA-S with FWW Distance: 60' without AD 40' with FWW Deviation: Improved steadiness, appropriate pacing THEREX: Patient was instructed in standing hip flexion, knee flexion, hip extension and hip abduction with FWW support, with good tolerance. ASSESSMENT: Patient demonstrates improved steadiness with gait with and without use of FWW support. PLAN: Patient to discharge to home later today, per provider. Recommend follow up with PT upon discharge. TREATMENT CODE/TIME: 23 minutes; [id number], [id number] (11:56)
== END 2021-12-15 13:40 | disposition home health service (06) | DRG 177 ==
LOC: ER 19:13 → MS 20:43
PROVIDERS: Family Medicine; Admitting Provider Internal Medicine; Emergency Provider Physician Assistant; PCP Nurse Practitioner; Visit Provider Internal Medicine
DX: U07.1 COVID-19 (principal); J15.9 Unspecified bacterial pneumonia; N17.9 Acute kidney failure, unspecified; M62.82 Rhabdomyolysis; I47.1 Supraventricular tachycardia; E86.0 Dehydration; G47.33 Obstructive sleep apnea (adult) (pediatric); R13.10 Dysphagia, unspecified; M54.9 Dorsalgia, unspecified; K59.09 Other constipation; R26.2 Difficulty in walking, not elsewhere classified; R74.01 Elevation of levels of liver transaminase levels; S09.90XA Unspecified injury of head, initial encounter; I10 Essential (primary) hypertension; N40.0 Benign prostatic hyperplasia without lower urinary tract symptoms; W18.39XA Other fall on same level, initial encounter; Y93.E1 Activity, personal bathing and showering; R33.9 Retention of urine, unspecified; R10.32 Left lower quadrant pain; D63.8 Anemia in other chronic diseases classified elsewhere; N40.1 Benign prostatic hyperplasia with lower urinary tract symptoms
CPT/HCPCS: 36410; 36415; 71250; 80048; 80053; 80076; 82306; 82550; 83690; 84145; 87040; 92526; 92610; 93005; 96361; 96365; 96375; 97110; 97162; 97530; 99285; 70450; 70490; 74176; 81003; 81015; 82728; 83735; 84100; 84439; 84443; 84484; 85025; 85379; 85610; 86140; 93010; 99223; 99233; 99239; J0131; J0248; J1100; J1650; J8540

== ENCOUNTER 2022-01-04 15:49 | Outpatient (REF) | payer MEDICARE, OTHER, SELFPAY ==
[2022-01-04 14:52] LABS: Abs Immature Grans 0.01 10^3/uL (0.0-0.06); Absolute Basophil Count 0.02 10^3/uL (0.0-0.2); Absolute Eosinophil Count 0.02 10^3/uL (0.0-0.7); Absolute Lymphocyte Count 0.65 10^3/uL (1.2-3.4); Absolute Monocyte Count 0.32 10^3/uL (0.1-0.8); Absolute Neutrophil Count 2.49 10^3/uL (1.2-6.7); Basophils % 0.6; Eosinophils % 0.6; HCT 30.4 % (40.0-50.0); HGB 9.8 g/dL (13.5-17.5); Immature Grans % 0.3; Lymphocytes % 18.5; MCH 31.6 pg (27.0-33.0); MCHC 32.2 % (32.0-36.0); MCV 98 fL (80-95); MPV 9.9 fL (8.0-11.0); Monocytes % 9.1; Neutrophils % 70.9; Platelet Count 235 10^3/uL (130-400); RDW 13.2 % (11.8-14.1); RDW-SD 46.6 fL; WBC 3.51 10^3/uL (4.4-10.8)
[2022-01-04 15:13] LABS: Anion Gap 4.2 mmol/L (3-11); BUN 16 mg/dL (7-18); CO2 31.8 mmol/L (21.0-32.0); CREATININE 1.3 mg/dL (0.70-1.30); Calcium 9.2 mg/dL (8.5-10.1); Chloride 106 mmol/L (98-107); Estimated GFR 53.39 (mL/min/1.73m2); Glucose 117 mg/dL (74-106); Potassium 4.8 mmol/L (3.5-5.1); Sodium 142 mmol/L (136-145); TSH (W/Ref FT4) 4.25 uIU/mL (0.36-3.74)
[2022-01-04 15:30] LABS: FREE T4 1.02 ng/dL (0.76-1.46)
== END 2022-01-04 15:50 | disposition home or self-care (01) ==
LOC: NCHCN 15:49
PROVIDERS: PCP Nurse Practitioner; Visit Provider Nurse Practitioner Family
DX: E07.9 Disorder of thyroid, unspecified (principal); N17.9 Acute kidney failure, unspecified; D53.9 Nutritional anemia, unspecified
CPT/HCPCS: 80048; 84439; 84443; 85025

== ENCOUNTER 2022-02-26 09:03 | Outpatient (REF) | payer MEDICARE, OTHER, SELFPAY ==
[2022-02-26 15:51] LABS: Abs Immature Grans 0.01 10^3/uL (0.0-0.06); Absolute Basophil Count 0.03 10^3/uL (0.0-0.2); Absolute Eosinophil Count 0.03 10^3/uL (0.0-0.7); Absolute Lymphocyte Count 0.72 10^3/uL (1.2-3.4); Absolute Monocyte Count 0.35 10^3/uL (0.1-0.8); Absolute Neutrophil Count 2.51 10^3/uL (1.2-6.7); Basophils % 0.8; Eosinophils % 0.8; HCT 34.2 % (40.0-50.0); HGB 11.2 g/dL (13.5-17.5); Immature Grans % 0.3; Lymphocytes % 19.7; MCH 31.2 pg (27.0-33.0); MCHC 32.7 % (32.0-36.0); MCV 95 fL (80-95); MPV 10.8 fL (8.0-11.0); Monocytes % 9.6; Neutrophils % 68.8; Platelet Count 156 10^3/uL (130-400); RBC 3.59 10^6/uL (4.36-5.78); RDW-SD 42.1 fL; WBC 3.65 10^3/uL (4.4-10.8)
[2022-02-26 16:34] LABS: ALT 32 U/L (16-63); AST 23 U/L (15-37); Albumin 3.8 g/dL (3.4-5.0); Alkaline Phosphatase 87 U/L (46-116); Anion Gap 5.2 mmol/L (3-11); BUN 24 mg/dL (7-18); Bilirubin, Total 0.9 mg/dL (0.2-1.0); CO2 30.8 mmol/L (21.0-32.0); CREATININE 1.2 mg/dL (0.70-1.30); Calcium 9.6 mg/dL (8.5-10.1); Chloride 107 mmol/L (98-107); Glucose 107 mg/dL (74-106); Potassium 4.3 mmol/L (3.5-5.1); Sodium 143 mmol/L (136-145); TSH (W/Ref FT4) 2.99 uIU/mL (0.36-3.74)
== END 2022-02-26 09:04 | disposition home or self-care (01) ==
LOC: NCHCN 09:03
PROVIDERS: PCP Nurse Practitioner; Visit Provider Nurse Practitioner Family
DX: D53.9 Nutritional anemia, unspecified (principal); I10 Essential (primary) hypertension; F41.1 Generalized anxiety disorder; R19.04 Left lower quadrant abdominal swelling, mass and lump
CPT/HCPCS: 80053; 84443; 85025

== ENCOUNTER → 2022-02-28 01:15 | Outpatient (CLI) | payer MEDICARE, OTHER, SELFPAY ==
[2022-02-28] MEDS: Barium Sulfate 2% W/V-Berry Smoothie 450 ML BTL 900 ML PO (09:32)
--- NOTE | 2022-02-28 10:54 | DI.CT_ITS ---
Exam(s) CT ABDOMEN PELVIS W EXAM: CT ABDOMEN PELVIS W CLINICAL HISTORY: LLQ ABD MASS,R19.04. TECHNIQUE: Imaging Protocol: Axial computed tomography images with coronal and sagittal reformatted images were created and reviewed CONTRAST MATERIAL: Intravenous: Omnipaque 350 Contrast volume:100 ml Oral: yes COMPARISON: CT CT ABDOMEN PELVIS WO from 05/04/[address] THORACIC LUMBAR SPINE REC from 12/12/[address] CHEST/ABD/PEL WO from 12/12/2021 FINDINGS: ABDOMEN: Lung Bases: Normal where visualized. Liver: Normal density. No measurable mass. Gallbladder and biliary tract: No radiodense calculus or dilation. Pancreas: Normal density, no abnormal calcifications or inflammatory process. Spleen: Normal. Kidneys: Normal size, contour and axis. No radiodense stones or obstructive uropathy. No masses seen. Small parapelvic renal cysts. Adrenal glands: No masses seen. Abdominal Aorta: Abdominal portion non-dilated. Stomach: Unremarkable. Small bowel: Stable dilatation of descending duodenum. PELVIS: Bladder: No gross wall thickening. No calculi.No focal mass. Bowel: Mild sigmoid diverticulosis. No obstruction or bowel wall thickening. Moderate quantity of st ool. Soft tissues: There is now a left inguinal hernia containing fluid. This is not seen on the prior ex am. It measures 3 cm transverse by 2.5 cm AP by 8 cm cephalo caudad. No right-sided inguinal hernia is seen.. Peritoneal cavity: No ascites, collection or mesenteric inflammatory response. Bones: Degenerative changes and scoliosis are noted in the spine. Nerve root sheath cysts are seen i n the sacral region. Reproductive organs: Enlarged prostate impressing on base of bladder. Lymph nodes: Unremarkable. Impression: New left inguinal hernia containing fluid. RADIATION DOSE DELIVERED: 770.51mGy.cm Total DLP DATA REPOSITORY: All CT scans at this facility are submitted to the National Radiology Data Registry (NRDR) Dose Index Registry (DIR) with the [employer] (ACR). RADIATION OPTIMIZATION: All CT scans at this facility use at least one of these dose optimization te chniques: automated exposure control; mA and/or kV adjustment per patient size (includes targeted exa ms where dose is matched to clinical indication); or iterative reconstruction.
[2022-02-28] MEDS: Omnipaque 350 MG/ML 500 ML BTL-Imaging package 100 ML IJ (10:57)
== END ==
PROVIDERS: PCP Nurse Practitioner; Visit Provider Nurse Practitioner Family
DX: R19.04 Left lower quadrant abdominal swelling, mass and lump (principal); K40.90 Unilateral inguinal hernia, without obstruction or gangrene, not specified as recurrent
CPT/HCPCS: 74177

== ENCOUNTER → 2022-03-09 10:11 | Outpatient (BNVA) | payer MEDICARE, OTHER, SELFPAY | PROVIDERS: PCP Nurse Practitioner Family; Referring Provider Nurse Practitioner Family; Visit Provider Urology | DX: N40.1 Benign prostatic hyperplasia with lower urinary tract symptoms (principal); R33.8 Other retention of urine; R39.14 Feeling of incomplete bladder emptying | CPT/HCPCS: 51798; 99213 ==

== ENCOUNTER → 2022-03-14 09:47 | Outpatient (BNVA) | payer MEDICARE, OTHER, SELFPAY | PROVIDERS: PCP Nurse Practitioner Family; Referring Provider Nurse Practitioner Family; Visit Provider Surgery | DX: K40.90 Unilateral inguinal hernia, without obstruction or gangrene, not specified as recurrent (principal) | CPT/HCPCS: 99213 ==

== ENCOUNTER 2022-04-13 06:05 | Day surgery (SDC) | payer MEDICARE, SELFPAY ==
--- NOTE | 2022-04-12 13:57 | PDOC.DSDIS_ITS ---
Date of service: 04/13/22 Time of Service: 09:27 Discharge Plan Disposition Patient Disposition: HOME Condition: Good Condition: Good Discharge Details Reason For Visit: Left inguinal herniorrhaphy Attending Provider: Gómez Helm Primary Care Provider: MAGDALENA DURHAM Home Meds and New Rx's Prescriptions: New tramadol 50 mg tablet 50 mg PO BID PRN (Reason: pain) Qty: 10 0RF Rx Instructions: take one tablet by mouth every 12 hours as needed for severe pain Continued lisinopril 2.5 mg tablet 2.5 mg PO DAILY mirtazapine 7.5 mg tablet 7.5 mg PO HS (DME) vacuum erection device system kit See Dose Instructions .ROUTE .MEDSUPPLY Qty: 1 0RF Dose Instruction: As directed Rx Instructions: As directed docusate sodium [Colace] 100 mg capsule 100 mg PO DAILY ascorbate calcium (vitamin C) 500 mg tablet 500 mg PO DAILY simvastatin 10 MG tablet 10 mg PO DAILY levothyroxine [Synthroid] 25 MCG tablet 25 mcg PO DAILY tamsulosin 0.4 MG capsule 0.4 mg PO BID finasteride [Proscar] 5 MG tablet 5 mg PO DAILY Centrum Silver Men 300-600-300 mcg Tablet 1 tab PO DAILY Discharge Instructions Instructions: Inguinal Hernia (DC) Additional Instructions: 1. Resume all of your medications. 2. Okay to use tylenol and ibuprofen over the counter as needed. 3. Use tramadol as needed for severe pain. 4. Leave bandage in place for 24 hours, then remove. 5. Shower with warm soapy water. Pat dry. Use a bandaid if needed to protect your clothing. 6. No soaking or tub baths until I see you in the office. 7. No heavy lifting until I see you in the office. 8.Call the office (or go directly to the emergency room after hours) if you notice any of the following: Develop chills (warm to touch), or if you have a thermometer and your temperature is above 101 Difficulty breathing or difficultly swallowing Persistent vomiting Any bleeding ? exceeding one tablespoon 6. Call your physician if the site where your intravenous was started becomes red, swollen, painful, and warm to touch. Referrals: Gómez Helm MD [ [facility] STAFF PHYSICIAN] - (10-14 days for routine follow up) Activity:: no heavy lifting Remove Dressings/Wound Care:: 24 hours Shower/Bathe:: 24 hours Diet:: As Tolerated DS: Diagnosis Discharge Diagnosis (1) Left inguinal hernia: Status: Chronic Asessment and Plan: Follow up in my office 10-14 days for rtouine post-op care
--- NOTE | 2022-04-12 14:00 | ROE_ITS ---
Date of service: 04/13/22 Time of Service: 09:04 Operative Note Operative Note DATE OF PROCEDURE: 04/13/22 PRE-OP DIAGNOSIS: Recurrent left inguinal hernia POST-OP DIAGNOSIS: other (Recurrent left-sided indirect inguinal hernia) PROCEDURE: Left inguinal herniorrhaphy SURGEON: Gómez Helm MEDICAL RECORDS CLERK: Haydee Altamirano ANESTHESIA TYPE: Local By Surgeon and General LMA/ETT Refer to Anesthesia Record ESTIMATED BLOOD LOSS: 50 COMPLICATIONS: None Patient's condition: stable Indications: Willy is a 76-year-old male scheduled for a left-sided inguinal hernia. He is recently had increasing left-sided groin pain and bulge. He underwent a CAT scan that demonstrated a fluid-filled inguinal hernia sac. Findings: Indirect inguinal hernia on the left side Procedure Description: After induction of general anesthesia, I prepped and draped the left groin in the usual fashion. I anesthetized the skin with local. I then made a longitudinal incision between the anterior superior iliac spine and pubic symphysis. I dissected down through the skin. Encountered a significant amount of scar tissue here. Using tedious dissection, I was able to come down onto the bulge in the left groin. External fascia was nearly obliterated, and I was not able to identify a discrete external ring. However, the hernia was quite obvious in this area. Using tedious dissection, I was able to separate the hernia sac from the inguinal cord structures. I dissected the sac down to its base, it appeared to emanate from the internal ring of the anterior lateral to the true cord structures. In the course of dissecting the hernia sac, I did create a small rent in it. Serous fluid drained freely. I repaired the defect with an interrupted Vicryl stitch. Once the hernia was completely dissected, I returned back to the preperitoneal space. It was impossible to identify any normal anatomic structures otherwise, as the inguinal canal was nearly replaced with scar tissue. I did not feel that insertion of the hernia plug would be satisfactory here, which made it hard to identify normal structures. In order to minimize any complications from implanting another mesh, I decided to close the internal ring primarily. Using [id number] Vicryl stitches, I was able to obliterate the internal ring right at the exit of the cord structures. I then reconstructed the anterior wall of the inguinal canal with the overlying scar tissue and interrupted Vicryl stitches. Once this was completed, I irrigated the surgical field. The deep skin was approximated with Vicryl stitches, and the skin was closed with a running subcuticular stitch. Bandages were applied, and the patient was moved to the postanesthesia care unit for ongoing recovery.
[2022-04-13] VITALS (8 sets, daily range): BP systolic 126–165; BP diastolic 50–65; PULSE 49–87; RESP 18–23; TEMP 36.3–36.9; O2SAT 96–98; BMI 22.1
--- NOTE | 2022-04-13 04:57 | ANES.PREOP_ITS ---
General Info Date of Service Date Performed: 04/13/22 Height: 5 ft 10 in Weight: 69.85 kg Body Mass Index (BMI): 22.1 Surgical Procedure: Operation Date: 04/13/22 07:40 Proposed Procedure Side Surgeon p Herniorrhaphy Inguinal w/Mesh Left Gómez Helm MD Meds Allergies and Home Medications Allergies Allergy/AdvReac Type Severity Reaction Status Date / Time Penicillins Allergy Mild Skin Rash Verified 04/13/22 06:28 cefazolin Allergy Skin Rash Verified 04/13/22 06:28 aspirin AdvReac Mild GI Bleeding Verified 04/13/22 06:28 Home Medication Medication Instructions Recorded finasteride 5 mg tablet (Proscar) 5 mg PO DAILY 07/25/17 levothyroxine 25 mcg tablet 25 mcg PO DAILY 07/25/17 (Synthroid) simvastatin 10 mg tablet 10 mg PO DAILY 07/25/17 tamsulosin 0.4 mg capsule 0.4 mg PO BID 07/25/17 vacuum erection device system #1 ea 03/28/18 lisinopril 2.5 mg tablet 2.5 mg PO DAILY 06/06/20 ascorbate calcium (vitamin C) 500 500 mg PO DAILY 03/09/22 mg tablet docusate sodium 100 mg capsule 100 mg PO DAILY 03/09/22 (Colace) mirtazapine 7.5 mg tablet 7.5 mg PO HS 03/09/22 wadfqwvk-eow-edqqa acid 300 1 tab PO DAILY 04/11/22 mcg-lycopene 600 mcg-lutein 300 mcg tablet (Centrum Silver Men) Current Visit Medications: Current Medications Generic Name Dose Route Start Last Admin Trade Name Niurka PRN Reason Stop Dose Admin Acetaminophen 1,000 mg 04/13/22 06:00 Acetaminophen 500 Mg Tab PO 04/13/22 23:59 PREOP ALIZA Gabapentin 600 mg 04/13/22 06:00 Gabapentin 300 Mg Cap PO 04/13/22 23:59 PREOP ALIZA Ringer's Solution 1,000 mls @ 80 mls/hr 04/13/22 06:00 IV 04/13/22 23:59 INFUSION [facility] Vancomycin/PEG/NADA/Lysine/Water 2 gm in 400 mls @ 200 mls/hr 04/13/22 06:00 Vancocin Injection IVPB 04/13/22 16:00 PREOP [facility] IV Miscellaneous Supplies 1 each 04/13/22 06:00 Iv Access IV 04/13/22 23:59 DIRECTED ALIZA Sodium Chloride 0 ml 04/13/22 06:00 Normal Saline Flush 10 Ml Syr IV 04/13/22 23:59 PRN PRN Sodium Chloride 0 ml 04/13/22 06:00 Normal Saline 10 Ml Vial IJ 04/13/22 23:59 DIRECTED PRN Sterile Water 0 ml 04/13/22 06:00 Water,Injection,Sterile 10 Ml Vial IJ 04/13/22 23:59 DIRECTED PRN PFSH Active Problems Active Problems: Problem Status Onset Code Constipation K59.00 Transaminitis R74.01 Ambulatory dysfunction R26.2 Closed head injury S09.90XA Back pain M54.9 Dysphagia R13.10 Rhabdomyolysis M62.82 Secondary bacterial pneumonia J15.9 COVID-19 U07.1 Multifocal pneumonia J18.9 Acute kidney injury N17.9 Dehydration E86.0 Feeling of incomplete bladder emptying R39.14 Suprapubic pressure R10.2 Difficulty in urination R39.198 Abdominal pain R10.9 Anemia, blood loss D50.0 Erythema multiforme L51.9 Anemia D64.9 Toxic metabolic encephalopathy G92 Sepsis A41.9 Anemia of chronic disease D63.8 SBO (small bowel obstruction) K56.609 Ileus K56.7 Acute confusion R41.0 Clostridium difficile enterocolitis A04.72 Vomiting R11.10 Essential hypertension I10 Constipation K59.00 Lumbar discitis M46.46 MSSA bacteremia R78.81, B95.61 Urinary retention R33.9 BPH (benign prostatic hyperplasia) N40.0 PSVT (paroxysmal supraventricular tachycardia) I47.1 Ambulatory dysfunction R26.2 Neck pain M54.2 Back pain M54.9 Gram-positive cocci bacteremia R78.81 Left inguinal hernia K40.90 Medical History Medical History Arthritis Conductive hearing loss Dehydration Epidural abscess (~10/09/13) Erectile dysfunction GERD (gastroesophageal reflux disease) History of Clostridioides difficile colitis (~10/2013) History of small bowel obstruction (07/12/15) Insomnia MSSA (methicillin susceptible Staphylococcus aureus) septicemia (10/09/13) in setting of ruputured appendicitis and found to have disciitis epidural abscess, [facility], [place], [place]; Dr. Casey Mixon, infectious disease HILDA on CPAP Osteomyelitis of vertebra of thoracolumbar region (~10/09/13) treated w/ 6 weeks of Ancef; seen by Dr. Casey Mixon, infectious disease, [place], [place]; completed treatment 11/20/2013; complicated by C. difficile colitis Panic anxiety syndrome Sensorineural hearing loss Sigmoid diverticulosis Thyroid disease Surgical History Surgical History H/O sinus surgery History of bilateral cataract extraction History of cholecystectomy (~1998) History of tonsillectomy and adenoidectomy S/P laparoscopic appendectomy (10/09/13) S/P left inguinal hernia repair Tobacco Smoking/Tobacco Use Status: Former Tobacco Use Alcohol Alcohol Intake: never Substance Use Substance use: Never Substance use type: does not use Vital Signs and Lab Results Lab Results Blood Type / Crossmatch: No Data to Display Complete Blood Count: No Data to Display Complete Metabolic Panel: No Data to Display Liver Function Panel: No Data to Display Coagulation Panel: No Data to Display Cardiac Panel: No Data to Display Arterial Blood Gas: No Data to Display Venous Blood Gas: No Data to Display Pancreas Panel: No Data to Display Thyroid Panel: No Data to Display Infectious Disease: No Data to Display Blood Cultures: No Data to Display Toxicology Panel: No Data to Display Imaging and Studies Imaging and Studies Study information below may be from another EMR and interpreted by another provider. Please see original notes in EMR for more complete details. EKG Summary: 12/15: sinus. Echocardiogram Summary: 08/2019: [id number]%, no sig valve lesions. Anesthesia Assessment and Plan Anesthesia History Personal History: No History of Anesthesia Complications Family History: No Family History of Anesthesia Complications Exercise Tolerance Exercise Tolerance: Metabolic Equivalents>4 Cardiac & Pulmonary Exam Cardiac Exam: Normal S1/S2 Heart Sounds Pulmonary Exam: Rales Present Implantable Cardiac Device Does patient have a Pacemaker or an ICD?: No Airway Exam Known Difficult Airway: No Mallampati Class: 3 Mouth Opening: Narrow (< 3cm) Thyromental Distance: Less than 3 cm Neck Range of Motion: Limited ROM Neck Circumference: Normal Teeth Condition: Normal Dentition ASA Classification ASA Score: ASA 2 Emergency Case?: No NPO Status NPO Status: NPO Clears >2 hours, Solids >8 hours Anesthesia Plan Resuscitation Status: Full Code Anesthesia Technique: General Anesthesia Airway Planned: Endotracheal Tube Pain Management: Surgeon and patient request nerve block Monitors Used: Standard Monitors Preoperative Comments:: 76 yo male for left inguinal hernia repair. Sig PMHx: HTN, PSVT, BPH, GERD/dysphagia, HILDA, panic anxiety syndrome, former smoker, hypothyroid. Recent admission with dehydration, pneumonia (? aspiration vs covid), ALEXIA. Has been doing well, breathing feels back to normal. Plan: GAETTANGELA block.
[2022-04-13] MEDS: Acetaminophen 500 MG TAB 1000 MG PO (06:41)
[2022-04-13] MEDS: Gabapentin 300 MG CAP 600 MG PO (06:41)
[2022-04-13] MEDS: Lactated Ringers 1,000 ML 80 ML IV (07:00)
[2022-04-13] MEDS: VANCOMYCIN/WATER (PEG) 2 GM/400 ML BAG IVPB (07:01)
--- NOTE | 2022-04-13 07:58 | W.ANESNERVE ---
Nerve Block Single Injection Procedure Date and Time Date Performed: 04/13/22 Procedure Start: 07:42 Location Where Procedure Performed Procedure Location: Operating Room Procedure Stop: 07:50 Reason Performed: Postoperative Analgesia Requesting Provider: Gómez Helm Timeout Performed Timeout Performed: Yes Monitoring Used ECG, Blood Pressure, SpO2 and ETCO2 Sterility Sterility: Hand Hygiene, Surgical Cap, Surgical Mask, Sterile Gloves and Chlorhexidine Sedation Given During Procedure Sedation Given (Indicate Dose Given): No Sedation given Patient Mental Status Patient Mental Status: Performed under general anesthesia Nerve Block 1st Nerve Block: Laterality: Left Block Type: TAP Unilateral Needle / Catheter Used: 100mm SonoPlex II Local Anesthetic Bolus (Indicate Dose Given): Bupivacaine 0.5% Dose:: 12 mL and Exparel Dose:: 10 mL Additives (Indicate Dose Given): None Ultrasound: Sterile probe cover and gel used Ultrasound Image Saved?: Yes Nerve Stimulator: Not Used Paresthesia: None Procedure Tolerated: No Complications Procedure Outcome: Successful Performed By: Jose Melgar
[2022-04-13] MEDS: Bupivacaine 0.25% Pres-Free 30 ML VIAL (08:50)
--- NOTE | 2022-04-13 09:33 | W.ANESPOSTOP ---
Postoperative Evaluation Date, Time and Location Date Performed: 04/13/22 Time Performed: 09:33 Patient Location: PACU Vital Signs Most Recent Imported Vital Signs: Most Recent Vital Signs Temp Pulse Resp BP Pulse Ox 36.4 C L 53 L 23 129/54 L 97 04/13/22 09:24 04/13/22 09:24 04/13/22 09:24 04/13/22 09:24 04/13/22 09:24 Pain Score Most Recent Pain Score: Most Recent Pain Score Pain Level 0 04/13/22 09:24 Assessment Mental Status: Awake (Alert & Oriented to Patient Baseline) Airway and Respiratory Function: Patent airway with normal (patient baseline) respiratory exam Cardiovascular Function: Hemodynamically Stable Hydration Status: Adequately Hydrated Nausea & Vomiting: No Nausea or Vomiting Pain: Pain is tolerable per patient Peripheral Nerve Block: Regional nerve block not resolved at time of post operative discharge
== END 2022-04-13 13:10 | disposition home or self-care (01) ==
PROVIDERS: PCP Nurse Practitioner Family; Visit Provider Surgery
PROC: (CPT 49651; principal; 2022-04-13 07:30)
DX: K40.91 Unilateral inguinal hernia, without obstruction or gangrene, recurrent (principal); R10.32 Left lower quadrant pain; G47.33 Obstructive sleep apnea (adult) (pediatric)
CPT/HCPCS: 49651; 49561; 76942; J1100; J2370; J2405; J2704

== ENCOUNTER 2022-04-16 05:46 | Emergency (ER) | payer MEDICARE, SELFPAY ==
[2022-04-16 05:44] VITALS: BP 160/59; PULSE 85; RESP 18; TEMP 36.9; O2SAT 100
[2022-04-16 05:53] VITALS: RESP 18
--- NOTE | 2022-04-16 06:00 | DI.CT_ITS ---
Exam(s) CT ABDOMEN PELVIS W EXAM: CT ABDOMEN PELVIS W CLINICAL HISTORY: left inguinal hernia, recent surgery. TECHNIQUE: Imaging Protocol: Axial computed tomography images with coronal and sagittal reformatted images were created and reviewed CONTRAST MATERIAL: Intravenous: Omnipaque 350 Contrast volume:100 ml Oral: / no COMPARISON: CT CT ABDOMEN PELVIS W from 02/28/2022 FINDINGS: ABDOMEN: Lung Bases: Limited evaluation due to respiratory motion. Liver: Normal density. No measurable mass. Gallbladder and biliary tract: No radiodense calculus or dilation. Pancreas: Normal density, no abnormal calcifications or inflammatory process. Spleen: Normal. Kidneys: Normal size, contour and axis. No radiodense stones or obstructive uropathy. Bilateral para pelvic cysts. No masses seen. Adrenal glands: No masses seen. Abdominal Aorta: Abdominal portion non-dilated. PELVIS: Bladder: Somewhat distended. No gross wall thickening. No calculi.No focal mass. Bowel: No obstruction or bowel wall thickening. Appendix removed. Peritoneal cavity: No ascites, collection or mesenteric inflammatory response. Bones: Severe degenerative disc changes and degenerative scoliosis. Reproductive organs: Enlarged prostate, unchanged. Marked scrotal edema. Enhancing vessels within t he left scrotum. Hemorrhage noted within left inguinal canal. A few air bubbles, likely related to recent surgery. Lymph nodes: Unremarkable. Impression: Status post left inguinal hernia repair. Hemorrhage within left inguinal canal. Severe scrotal madhuri a. RADIATION DOSE DELIVERED: 1,103.64mGy.cm Total DLP DATA REPOSITORY: All CT scans at this facility are submitted to the National Radiology Data Registry (NRDR) Dose Index Registry (DIR) with the [employer] (ACR). RADIATION OPTIMIZATION: All CT scans at this facility use at least one of these dose optimization te chniques: automated exposure control; mA and/or kV adjustment per patient size (includes targeted exa ms where dose is matched to clinical indication); or iterative reconstruction.
--- NOTE | 2022-04-16 06:13 | W.ED.GENAD ---
Discharge Plan Discharge Details Chief Complaint: GenMedical Primary Care Provider: MAGDALENA DURHAM ED Provider: Chad Jennings Home Meds and New Rx's Prescriptions: No Action lisinopril 2.5 mg tablet 2.5 mg PO DAILY mirtazapine 7.5 mg tablet 7.5 mg PO HS (DME) vacuum erection device system kit See Dose Instructions .ROUTE .MEDSUPPLY Qty: 1 0RF Dose Instruction: As directed Rx Instructions: As directed docusate sodium [Colace] 100 mg capsule 100 mg PO DAILY ascorbate calcium (vitamin C) 500 mg tablet 500 mg PO DAILY simvastatin 10 MG tablet 10 mg PO DAILY levothyroxine [Synthroid] 25 MCG tablet 25 mcg PO DAILY tamsulosin 0.4 MG capsule 0.4 mg PO BID finasteride [Proscar] 5 MG tablet 5 mg PO DAILY Centrum Silver Men 300-600-300 mcg Tablet 1 tab PO DAILY tramadol 50 mg tablet 50 mg PO BID PRN (Reason: pain) Qty: 10 0RF Rx Instructions: take one tablet by mouth every 12 hours as needed for severe pain polyethylene glycol 3350 [Miralax] 17 gram Powder In Packet 17 g PO PRN PRN Medical Decision Making 76-year-old male presents postop day 3 after left inguinal hernia repair, endorsing recurrent swelling discomfort and constipation, patient does have large amount of ecchymosis settled into scrotum, inguinal incision site clean dry intact no evidence of dehiscence, no purulence no fluctuance, does have fullness to the left inguinal region and left hemiscrotum that is soft to the touch nontender, abdomen soft nontender nondistended, no nausea or vomiting, patient endorsing relative constipation however had a small bowel movement earlier today, afebrile nontoxic. Consider recurrence of left inguinal hernia, lower suspicion for incarceration or strangulation of hernia, lower suspicion for postoperative infection or large hemorrhage. Given age recent procedure and recurrence of symptoms will obtain CT abdomen pelvis with IV contrast, basic labs, lactate level, will keep patient n.p.o., will hang maintenance fluids. Disposition pending labs imaging reassessment of symptoms. 7: 30 patient resting comfortably no acute distress. CT shows likely dependent blood products settling from recent surgery. No evidence of active bleeding. No evidence of active infection. Constipation likely chronic with a component of ileus. No evidence of bowel obstruction at this time. Patient will continue with his home bowel regimen. We will follow-up with general surgery as an outpatient. Will repeat lactate after fluids. Sign Out Yes HPI General Date/Time Provider Initiated Documentation: 04/16/22 05:58. HPI Narrative: 76-year-old male postop day 3 after left inguinal hernia repair presents with increased swelling, discomfort and relative constipation, patient endorses having small bowel movements over the past couple of days. Denies abdominal distention nausea or vomiting. Denies fevers or chills Related Data Home Medications Medication Instructions Recorded Confirmed finasteride 5 mg tablet (Proscar) 5 mg PO DAILY 07/25/17 04/16/22 levothyroxine 25 mcg tablet 25 mcg PO DAILY 07/25/17 04/16/22 (Synthroid) simvastatin 10 mg tablet 10 mg PO DAILY 07/25/17 04/16/22 tamsulosin 0.4 mg capsule 0.4 mg PO BID 07/25/17 04/16/22 vacuum erection device system #1 ea 03/28/18 04/11/22 lisinopril 2.5 mg tablet 2.5 mg PO DAILY 06/06/20 04/16/22 ascorbate calcium (vitamin C) 500 500 mg PO DAILY 03/09/22 04/16/22 mg tablet docusate sodium 100 mg capsule 100 mg PO DAILY 03/09/22 04/13/22 (Colace) mirtazapine 7.5 mg tablet 7.5 mg PO HS 03/09/22 04/16/22 [id number] acid 300 1 tab PO DAILY 04/11/22 04/16/22 mcg-lycopene 600 mcg-lutein 300 mcg tablet (Centrum Silver Men) tramadol 50 mg tablet 50 mg PO BID PRN pain #10 tabs 04/13/22 polyethylene glycol 3350 17 gram 17 g PO PRN PRN 04/16/22 04/16/22 oral powder packet (Miralax) Previous Rx's Medication Instructions Recorded vacuum erection device system #1 ea 03/28/18 tramadol 50 mg tablet 50 mg PO BID PRN pain #10 tabs 04/13/22 Allergies Allergy/AdvReac Type Severity Reaction Status Date / Time Penicillins Allergy Mild Skin Rash Verified 04/16/22 05:50 cefazolin Allergy Skin Rash Verified 04/16/22 05:50 aspirin AdvReac Mild GI Bleeding Verified 04/16/22 05:50 General Stated Complaint: GenMedical ERICKA: 3 Review of Systems Narrative: Review of Systems Constitutional: negative Eyes: negative ENT: negative Cardiovascular: negative Respiratory: negative Gastrointestinal: Groin and scrotal swelling, constipation : negative Musculoskeletal: negative Skin: negative Neurologic: negative Psych: negative PFSH All Active Problems Constipation (Chronic) Transaminitis (Acute) Ambulatory dysfunction (Acute) Closed head injury (Acute) Back pain (Acute) Dysphagia (Acute) Rhabdomyolysis (Acute) Secondary bacterial pneumonia (Acute) COVID-19 (Acute) Multifocal pneumonia (Acute) Acute kidney injury (Acute) Dehydration (Acute) Feeling of incomplete bladder emptying (Acute) Suprapubic pressure (Acute) Difficulty in urination (Acute) Abdominal pain (Acute) Anemia, blood loss (Acute) Anemia (Chronic) Anemia of chronic disease (Acute) SBO (small bowel obstruction) (Acute) Acute confusion (Acute) Vomiting (Acute) Essential hypertension (Chronic) Constipation (Acute) Lumbar discitis (Acute) MSSA bacteremia (Acute) Urinary retention (Acute) BPH (benign prostatic hyperplasia) (Chronic) PSVT (paroxysmal supraventricular tachycardia) (Acute) Ambulatory dysfunction (Acute) Neck pain (Acute) Back pain (Acute) Gram-positive cocci bacteremia (Acute) Left inguinal hernia (Chronic) Medical History Arthritis Conductive hearing loss Dehydration Epidural abscess (~10/09/13) Erectile dysfunction GERD (gastroesophageal reflux disease) History of Clostridioides difficile colitis (~10/2013) History of small bowel obstruction (07/12/15) Insomnia MSSA (methicillin susceptible Staphylococcus aureus) septicemia (10/09/13) in setting of ruputured appendicitis and found to have disciitis epidural abscess, [facility], [place], [place]; Dr. Casey Mixon, infectious disease HILDA on CPAP Osteomyelitis of vertebra of thoracolumbar region (~10/09/13) treated w/ 6 weeks of Ancef; seen by Dr. Casey Mixon, infectious disease, [facility], [place], [place]; completed treatment 11/20/2013; complicated by C. difficile colitis Panic anxiety syndrome Sensorineural hearing loss Sigmoid diverticulosis Thyroid disease Surgical History H/O sinus surgery History of bilateral cataract extraction History of cholecystectomy (~1998) History of tonsillectomy and adenoidectomy S/P laparoscopic appendectomy (10/09/13) S/P left inguinal hernia repair Social History Smoking/Tobacco Use Status: Former Tobacco Use Smoking risk assessment performed?: Yes Alcohol Intake: never Drug use: Never Substance use type: does not use Do you feel safe at home: Yes Do you feel safe in your relationship?: Yes Exam Narrative Exam Narrative: Physical Examination General: alert, awake, cooperative, resting comfortably, no acute distress HEENT: normocephalic, atraumatic; PERRL, EOM intact, conjunctiva normal; no nasal discharge; moist mucous membranes, oral and pharyngeal mucosa normal, tolerating secretions Neck: supple, trachea midline; full ROM Chest: normal to inspection Respiratory: normal respiratory effort, speaking in full sentences, clear to auscultation, no wheezing, rales or rhonchi Cardiac: regular rate, regular rhythm, S1S2 intact, no murmurs rubs or gallops GI: abdomen soft, non-tender, non-distended; no palpable mass or hepatosplenomegaly; left inguinal incision site clean dry intact no evidence of dehiscence or purulence : Large ecchymosis settled into scrotum, hernia palpable in left hemiscrotum soft nontender not indurated Skin: See GI and Neuro: AAOx3, normal speech, moving all extremities Psych: Appropriate mood and affect Course Vital Signs Vital signs: Vital Signs Temperature 36.9 C 04/16/22 05:44 Pulse 85 04/16/22 05:44 Respiratory Rate 18 04/16/22 05:44 Blood Pressure 160/59 H 04/16/22 05:44 Pulse Oximetry 100 04/16/22 05:44 Temperature 36.9 C 04/16/22 05:44 Temperature Source Skin 04/16/22 05:44 Pulse 85 04/16/22 05:44 Respiratory Rate 18 04/16/22 05:53 Respiratory Effort Non-Labored 04/16/22 05:53 Respiratory Depth Normal 04/16/22 05:53 Respiratory Pattern Normal 04/16/22 05:53 Blood Pressure 160/59 H 04/16/22 05:44 Pulse Oximetry 100 04/16/22 05:44 Pain Level 3 04/16/22 05:44
[2022-04-16 06:25] LABS: Lactate 1.9 mmol/L (0.6-1.4)
[2022-04-16 06:35] LABS: Abs Immature Grans 0.02 10^3/uL (0.0-0.06); Absolute Basophil Count 0.03 10^3/uL (0.0-0.2); Absolute Eosinophil Count 0.04 10^3/uL (0.0-0.7); Absolute Lymphocyte Count 1.07 10^3/uL (1.2-3.4); Absolute Monocyte Count 0.65 10^3/uL (0.1-0.8); Absolute Neutrophil Count 3.92 10^3/uL (1.2-6.7); Basophils % 0.5; Eosinophils % 0.7; HCT 29.4 % (40.0-50.0); HGB 9.4 g/dL (13.5-17.5); Immature Grans % 0.3; Lymphocytes % 18.7; MCH 30.7 pg (27.0-33.0); MCV 96 fL (80-95); MPV 10.3 fL (8.0-11.0); Monocytes % 11.3; Neutrophils % 68.5; Platelet Count 143 10^3/uL (130-400); RBC 3.06 10^6/uL (4.36-5.78); RDW 12.6 % (11.8-14.1); RDW-SD 44.3 fL; WBC 5.73 10^3/uL (4.4-10.8)
[2022-04-16] MEDS: Omnipaque 350 MG/ML 100 ML BTL IJ (06:44)
[2022-04-16] MEDS: Normal Saline Flush 10 ML SYR IVP (06:53)
[2022-04-16] MEDS: Normal Saline - Diluent 50 ML VIAL IJ (06:53)
[2022-04-16 07:00] LABS: ALT 127 U/L (16-63); AST 46 U/L (15-37); Albumin 3.8 g/dL (3.4-5.0); Alkaline Phosphatase 112 U/L (46-116); Anion Gap 8.5 mmol/L (3-11); BUN 23 mg/dL (7-18); Bilirubin, Total 2.1 mg/dL (0.2-1.0); CO2 28.5 mmol/L (21.0-32.0); CREATININE 1.3 mg/dL (0.70-1.30); Calcium 9.5 mg/dL (8.5-10.1); Chloride 106 mmol/L (98-107); Estimated GFR 56.23 (mL/min/1.73m2); Glucose 113 mg/dL (74-106); Potassium 3.6 mmol/L (3.5-5.1); Sodium 143 mmol/L (136-145); Total Protein 7.1 g/dL (6.4-8.2)
--- NOTE | 2022-04-16 07:14 | DI.VRAD_ITS ---
PROCEDURE INFORMATION: Exam: CT Abdomen And Pelvis With Contrast Exam date and time: 04/16/2022 6:40 AM Age: 76 years old Clinical indication: Localized; Prior surgery; Surgery date: 1-6 months; Surgery type: Left inguinal hernia, recent surgery; Patient HX: Lower abdominal pain, PT states unable to urinate TECHNIQUE: Imaging protocol: Computed tomography of the abdomen and pelvis with contrast. Radiation optimization: All CT scans at this facility use at least one of these dose optimization techniques: automated exposure control; mA and/or kV adjustment per patient size (includes targeted exams where dose is matched to clinical indication); or iterative reconstruction. Contrast material: OMNIPAQUE 350; Contrast volume: 100 ml; Contrast route: INTRAVENOUS (IV); COMPARISON: CT ABDOMEN PELVIS W 02/28/2022 10:57 AM FINDINGS: Limitations: Moderate respiratory motion artifact. Liver: Normal. No mass. Gallbladder and bile ducts: The gallbladder is surgically absent. No biliary dilatation. Pancreas: Normal. No ductal dilation. Spleen: Normal. No splenomegaly. Adrenal glands: Normal. No mass. Kidneys and ureters: Bilateral parapelvic renal cysts. Otherwise unremarkable kidneys. Stomach and bowel: Large amount of stool throughout the colon. No other gross bowel abnormalities. No bowel obstruction. Appendix: The appendix is unable to be delineated. No inflammatory changes are seen in the expected region of the appendix. Sutures in the cecal apex region are suggestive of prior appendectomy. Intraperitoneal space: Unremarkable. No free air. No significant fluid collection. Vasculature: Enhancing serpiginous vessels in the scrotum, left greater than right. Lymph nodes: Unremarkable. No enlarged lymph nodes. Urinary bladder: Moderately dilated urinary bladder. The urinary bladder volume is 487 mL. Otherwise unremarkable urinary bladder. Reproductive: Enlarged prostate. Marked scrotal edema. Bones/joints: No acute or suspicious osseous abnormalities. Bridging syndesmophytes of the lower thoracic spine. Severe multilevel degenerative changes of the lumbar spine, with findings including disc space narrowing, marginal osteophytes and degenerative changes in the vertebral endplates, greatest at L4-L5. Soft tissues: Moderate amount of infiltrating hyperattenuating blood products vessels extending from the left inguinal region into the left inguinal canal, anterior to the left inguinal vessels. The conglomerate size of these blood products measures approximately 4.8 x 2.8 x 10 cm. IMPRESSION: 1. Moderate amount of infiltrating hyperattenuating blood products extending from the left inguinal region into the left inguinal canal, anterior to the left inguinal vessels. No definite focus of active contrast extravasation noted. 2. Moderately dilated urinary bladder. Correlate for urinary retention. 3. Marked scrotal wall edema. 4. Enlarged prostate. 5. Constipation. 6. Enhancing serpiginous vessels in the scrotum, left greater than right. This finding may be reactive in nature. If indicated, a follow-up scrotal ultrasound can be performed after resolution of the acute process, to assess for varicocele. 7. Findings suggestive of ankylosing spondylitis. Dictated and Authenticated by: Nicki Castrejon MD. Ordering:IMMANUEL Bonilla MD
[2022-04-16 07:18] VITALS: BP 113/43; PULSE 77; RESP 18; TEMP 36.8; O2SAT 99
[2022-04-16] MEDS: Normal Saline 1,000 ML 1000 ML IV (07:18)
[2022-04-16 08:14] VITALS: BP 128/45; PULSE 72; RESP 16; TEMP 36.6; O2SAT 100
[2022-04-16 08:28] LABS: Lactate 1.1 mmol/L (0.6-1.4)
--- NOTE | 2022-04-16 09:25 | W.EDPROG ---
Date of service: 04/16/22 Time of Service: 07:30 Medical Decision Making Patient was signed out to me at time of shift change by Dr. Jennings with repeat lactate pending for plan for discharge if lactate normalizes. Lactate resulted at 1.1. Patient reassessed. Patient states that he feels very well and is ready to go home. He reports that swelling seems to have decreased significantly since he has been resting in bed. I discussed patient presentation results with Dr. Helm of surgery, who will call patient today or tomorrow and follow-up with him outpatient, no immediate recommendations at this time. I had a discussion with Patient regarding return to emergency department precautions, home care, and importance of outpatient follow-up. Pt verbalizes understanding of the plan and is amenable. Patient discharged to home with clear plan for outpatient follow-up. All questions were answered. Disposition decision was made weighing the risks and benefits of hospitalization versus outpatient treatment, the risk for further decompensation, and the patient's wishes. Medical Records Medical records reviewed: Yes I reviewed the patient's medical records. Lab Data Lab results reviewed: Yes I reviewed the patient's lab results. Labs: Laboratory Tests Range/Units 04/16/22 04/16/22 04/16/22 06:15 06:15 06:15 WBC (4.4-10.8) 10^3/uL 5.73 RBC (4.36-5.78) 10^6/uL 3.06 L Hgb (13.5-17.5) g/dL 9.4 L Hct (40.0-50.0) % 29.4 L MCV (80-95) fL 96 H MCH (27.0-33.0) pg 30.7 MCHC (32.0-36.0) % 32.0 RDW (11.8-14.1) % 12.6 Plt Count (130-400) 10^3/uL 143 MPV (8.0-11.0) fL 10.3 Immature Gran % 0.3 Neutrophils % 68.5 Lymphocytes % 18.7 Monocytes % 11.3 Eosinophils % 0.7 Basophils % 0.5 Nucleated RBC % (0.0-0.3) % 0.0 Absolute Neutrophils (1.2-6.7) 10^3/uL 3.92 Absolute Lymphocytes (1.2-3.4) 10^3/uL 1.07 L Absolute Monocytes (0.1-0.8) 10^3/uL 0.65 Absolute Eosinophils (0.0-0.7) 10^3/uL 0.04 Absolute Basophils (0.0-0.2) 10^3/uL 0.03 VBG Lactate (0.6-1.4) mmol/L 1.9 H Sodium (136-145) mmol/L 143 Potassium (3.5-5.1) mmol/L 3.6 Chloride (98-107) mmol/L 106 Carbon Dioxide (21.0-32.0) mmol/L 28.5 Anion Gap (3-11) mmol/L 8.5 BUN (7-18) mg/dL 23 H Creatinine (0.70-1.30) mg/dL 1.3 Est GFR (CKD-EPI 2020) (mL/min/1.73m2) 56.23 Glucose (74-106) mg/dL 113 H Calcium (8.5-10.1) mg/dL 9.5 Total Bilirubin (0.2-1.0) mg/dL 2.1 H AST (15-37) U/L 46 H ALT (16-63) U/L 127 H Alkaline Phosphatase (46-116) U/L 112 Total Protein (6.4-8.2) g/dL 7.1 Albumin (3.4-5.0) g/dL 3.8 Range/Units 04/16/22 08:24 WBC (4.4-10.8) 10^3/uL RBC (4.36-5.78) 10^6/uL Hgb (13.5-17.5) g/dL Hct (40.0-50.0) % MCV (80-95) fL MCH (27.0-33.0) pg MCHC (32.0-36.0) % RDW (11.8-14.1) % Plt Count (130-400) 10^3/uL MPV (8.0-11.0) fL Immature Gran % Neutrophils % Lymphocytes % Monocytes % Eosinophils % Basophils % Nucleated RBC % (0.0-0.3) % Absolute Neutrophils (1.2-6.7) 10^3/uL Absolute Lymphocytes (1.2-3.4) 10^3/uL Absolute Monocytes (0.1-0.8) 10^3/uL Absolute Eosinophils (0.0-0.7) 10^3/uL Absolute Basophils (0.0-0.2) 10^3/uL VBG Lactate (0.6-1.4) mmol/L 1.1 Sodium (136-145) mmol/L Potassium (3.5-5.1) mmol/L Chloride (98-107) mmol/L Carbon Dioxide (21.0-32.0) mmol/L Anion Gap (3-11) mmol/L BUN (7-18) mg/dL Creatinine (0.70-1.30) mg/dL Est GFR (CKD-EPI 2020) (mL/min/1.73m2) Glucose (74-106) mg/dL Calcium (8.5-10.1) mg/dL Total Bilirubin (0.2-1.0) mg/dL AST (15-37) U/L ALT (16-63) U/L Alkaline Phosphatase (46-116) U/L Total Protein (6.4-8.2) g/dL Albumin (3.4-5.0) g/dL Sign Out Yes Sign Out Sign Out Data: Sign Out Comment: fluids running, pending repeat lactate for d/c home, followup surgery Last updated by Chad Jennings MD at 04/16/22 07:35 Discharge Plan Disposition Patient Disposition: Home Condition: Improving Discharge Details Clinical Impression: Scrotal edema, Constipation Primary Care Provider: MAGDALENA DURHAM ED Provider: Inez Reeves Meds and New Rx's Prescriptions: No Action lisinopril 2.5 mg tablet 2.5 mg PO DAILY mirtazapine 7.5 mg tablet 7.5 mg PO HS (DME) vacuum erection device system kit See Dose Instructions .ROUTE .MEDSUPPLY Qty: 1 0RF Dose Instruction: As directed Rx Instructions: As directed docusate sodium [Colace] 100 mg capsule 100 mg PO DAILY ascorbate calcium (vitamin C) 500 mg tablet 500 mg PO DAILY simvastatin 10 MG tablet 10 mg PO DAILY levothyroxine [Synthroid] 25 MCG tablet 25 mcg PO DAILY tamsulosin 0.4 MG capsule 0.4 mg PO BID finasteride [Proscar] 5 MG tablet 5 mg PO DAILY Centrum Silver Men 300-600-300 mcg Tablet 1 tab PO DAILY tramadol 50 mg tablet 50 mg PO BID PRN (Reason: pain) Qty: 10 0RF Rx Instructions: take one tablet by mouth every 12 hours as needed for severe pain polyethylene glycol 3350 [Miralax] 17 gram Powder In Packet 17 g PO PRN PRN Discharge Instructions Additional Instructions: Please return immediately to the emergency department if you develop any new or worsening symptoms, if your condition does not improve as expected, or if you become otherwise concerned. It is extremely important that you call soon as possible to make an appointment to be seen in follow-up for this visit by your primary care doctor and your surgeon. Referrals: MAGDALENA DURHAM NP [Primary Care Provider] - Gómez Helm MD [ [facility] STAFF PHYSICIAN] - Discharge Data Discharge Date/Time-TO BE ENTERED AT DEPARTURE: 04/16/22 09:54
[2022-04-16 09:41] VITALS: BP 151/66; PULSE 75; RESP 16; TEMP 36.7; O2SAT 99
== END 2022-04-16 09:54 | disposition home or self-care (01) ==
PROVIDERS: Emergency Medicine; Emergency Provider Student in an Organized Health Care Education/Training Program; PCP Nurse Practitioner Family
DX: K59.00 Constipation, unspecified (principal); R58 Hemorrhage, not elsewhere classified; K40.90 Unilateral inguinal hernia, without obstruction or gangrene, not specified as recurrent
CPT/HCPCS: 36415; 80053; 96360; 96361; 99285; 74177; 83605; 85025; 99284; J3490

== ENCOUNTER → 2022-04-26 09:47 | Outpatient (BNVA) | payer MEDICARE, SELFPAY | PROVIDERS: PCP Nurse Practitioner Family; Referring Provider Nurse Practitioner Family; Visit Provider Physical Therapy Assistant | DX: Z48.817 Encounter for surgical aftercare following surgery on the skin and subcutaneous tissue (principal); K40.90 Unilateral inguinal hernia, without obstruction or gangrene, not specified as recurrent ==

== ENCOUNTER → 2022-05-10 12:48 | Outpatient (BNVA) | payer MEDICARE, SELFPAY | PROVIDERS: PCP Nurse Practitioner Family; Referring Provider Nurse Practitioner Family; Visit Provider Physical Therapy Assistant | DX: Z48.817 Encounter for surgical aftercare following surgery on the skin and subcutaneous tissue (principal); K40.90 Unilateral inguinal hernia, without obstruction or gangrene, not specified as recurrent ==

== ENCOUNTER → 2022-05-24 11:03 | Outpatient (BNVA) | payer MEDICARE, SELFPAY | PROVIDERS: PCP Nurse Practitioner Family; Referring Provider Nurse Practitioner Family; Visit Provider Physical Therapy Assistant | DX: Z48.817 Encounter for surgical aftercare following surgery on the skin and subcutaneous tissue (principal) ==

== ENCOUNTER → 2022-06-07 10:12 | Outpatient (BNVA) | payer MEDICARE, SELFPAY | PROVIDERS: PCP Nurse Practitioner Family; Referring Provider Nurse Practitioner Family; Visit Provider Physical Therapy Assistant | DX: Z48.817 Encounter for surgical aftercare following surgery on the skin and subcutaneous tissue (principal) ==

== ENCOUNTER 2022-08-27 18:10 | Outpatient (REF) | payer MEDICARE, SELFPAY ==
[2022-08-27 17:04] LABS: Abs Immature Grans 0.01 10^3/uL (0.0-0.06); Absolute Basophil Count 0.03 10^3/uL (0.0-0.2); Absolute Eosinophil Count 0.02 10^3/uL (0.0-0.7); Absolute Lymphocyte Count 0.77 10^3/uL (1.2-3.4); Absolute Monocyte Count 0.38 10^3/uL (0.1-0.8); Absolute Neutrophil Count 2.88 10^3/uL (1.2-6.7); Basophils % 0.7; Eosinophils % 0.5; HCT 35.2 % (40.0-50.0); HGB 11.5 g/dL (13.5-17.5); Immature Grans % 0.2; Lymphocytes % 18.8; MCH 30.7 pg (27.0-33.0); MCHC 32.7 % (32.0-36.0); MCV 94 fL (80-95); MPV 10.8 fL (8.0-11.0); Monocytes % 9.3; Neutrophils % 70.5; Platelet Count 155 10^3/uL (130-400); RBC 3.74 10^6/uL (4.36-5.78); RDW 12.5 % (11.8-14.1); RDW-SD 42.8 fL; WBC 4.09 10^3/uL (4.4-10.8)
[2022-08-27 17:09] LABS: ESR 5 mm/hr (0-20)
[2022-08-27 17:17] LABS: ALT 27 U/L (16-63); AST 20 U/L (15-37); Alkaline Phosphatase 96 U/L (46-116); Anion Gap 4.6 mmol/L (3-11); BUN 24 mg/dL (7-18); Bilirubin, Total 1.3 mg/dL (0.2-1.0); CO2 31.4 mmol/L (21.0-32.0); CREATININE 1.2 mg/dL (0.70-1.30); Chloride 107 mmol/L (98-107); Estimated GFR 61.52 (mL/min/1.73m2); Glucose 109 mg/dL (74-106); Potassium 4.8 mmol/L (3.5-5.1); Sodium 143 mmol/L (136-145); Total Protein 6.8 g/dL (6.4-8.2)
[2022-08-28 18:46] LABS: PSA, Diagnostic 1.5 ng/mL (<=6.5)
== END 2022-08-27 18:11 | disposition home or self-care (01) ==
LOC: LBN 18:10
PROVIDERS: PCP Nurse Practitioner Family; Visit Provider Nurse Practitioner Family
DX: R10.30 Lower abdominal pain, unspecified; R33.9 Retention of urine, unspecified
CPT/HCPCS: 80053; 85652; 84153; 85025; 86140; 87086

== ENCOUNTER 2022-08-28 10:31 | Outpatient (REF) | payer MEDICARE, SELFPAY | END 2022-08-28 10:32 | disposition home or self-care (01) | LOC: LBN 10:31 | PROVIDERS: PCP Nurse Practitioner Family; Visit Provider Nurse Practitioner Family | DX: R33.9 Retention of urine, unspecified (principal) | CPT/HCPCS: 87086 ==

== ENCOUNTER → 2022-10-02 10:05 | Outpatient (BNVA) | payer MEDICARE, SELFPAY | PROVIDERS: PCP Nurse Practitioner Family; Visit Provider Urology | DX: N13.8 Other obstructive and reflux uropathy (principal); N40.1 Benign prostatic hyperplasia with lower urinary tract symptoms; R33.8 Other retention of urine | CPT/HCPCS: 51798; 99214 ==

== ENCOUNTER 2023-02-18 09:17 | Emergency (ER) | payer MEDICARE, SELFPAY ==
--- NOTE | 2023-02-18 09:00 | RT.EKG_ITS ---
APPROVED REPORT Exam: Resting ECG Reason for Exam: lightheaded, presyncope Patient Location: E HR:74 bpm ECG Measurements Heart Rate 74 AXIS FL 166 P 67 QRSd 94 QRS 62 QT 380 T 48 QTc 421 Conclusion Sinus rhythm...normal P axis, V-rate 60- 99 Narrow complex normal sinus rhythm at a rate of 74. Normal axis. No ST segment abnormalities. No T wave inversions. Low voltage in aVL similar to prior dated last year. No acute injury pattern.
[2023-02-18 09:14] VITALS: BP 157/60; PULSE 78; RESP 16; O2SAT 98
--- NOTE | 2023-02-18 09:30 | DI.RAD_ITS ---
Exam(s) XR CHEST 2V PA LATERAL EXAM: XR CHEST 2V PA LATERAL CLINICAL HISTORY: weakness. TECHNIQUE: 2D digital imaging was performed. COMPARISON: CR XR CHEST 2V PA LATERAL from 10/16/2019 FINDINGS: 2 views: Chest leads in place Heart size is normal. The mediastinum is not widened. Subtle suggestion of nodular infiltrate right mid lung. No other obvious focal findings and no pleur al effusions. No pulmonary edema. IMPRESSION: Possible small nodular infiltrate mid right lung. DATA REPOSITORY: RADIATION DOSE DELIVERED:
--- NOTE | 2023-02-18 09:30 | DI.CT_ITS ---
Exam(s) CT HEAD WO EXAM: CT HEAD WO CLINICAL HISTORY: HI, lightheaded. TECHNIQUE: Imaging Protocol: Axial computed tomography images with coronal and sagittal reformatted images were created and reviewed COMPARISON: CT CT HEAD NECK WO from 12/12/2021 FINDINGS: There are no skull fractures. There is no fluid in the visualized paranasal sinuses. There is no evidence of intracranial hemorrhage, mass effect, or shift of midline structures. There are no extra-axial fluid collections. The ventricles are not enlarged or shifted and there is no blo od within the ventricular system nor within the basal cisterns. IMPRESSION: No acute intracranial findings on this noninfused CT scan of the brain. Called to ER. RADIATION DOSE DELIVERED: 713.63mGy.cm Total DLP DATA REPOSITORY: All CT scans at this facility are submitted to the National Radiology Data Registry (NRDR) Dose Index Registry (DIR) with the [employer] ([employer]). RADIATION OPTIMIZATION: All CT scans at this facility use at least one of these dose optimization te chniques: automated exposure control; mA and/or kV adjustment per patient size (includes targeted exa ms where dose is matched to clinical indication); or iterative reconstruction.
[2023-02-18] MEDS: Lactated Ringers 1,000 ML 500 ML IV (10:00)
[2023-02-18 10:10] LABS: Lactate 1.6 mmol/L (0.6-1.4)
[2023-02-18 10:14] LABS: Abs Immature Grans 0.01 10^3/uL (0.0-0.06); Absolute Basophil Count 0.02 10^3/uL (0.0-0.2); Absolute Eosinophil Count 0.02 10^3/uL (0.0-0.7); Absolute Lymphocyte Count 0.67 10^3/uL (1.2-3.4); Absolute Monocyte Count 0.41 10^3/uL (0.1-0.8); Absolute Neutrophil Count 3.12 10^3/uL (1.2-6.7); Basophils % 0.5; Eosinophils % 0.5; HCT 32.9 % (40.0-50.0); HGB 10.8 g/dL (13.5-17.5); Immature Grans % 0.2; Lymphocytes % 15.8; MCH 31.3 pg (27.0-33.0); MCHC 32.8 % (32.0-36.0); MCV 95 fL (80-95); MPV 9.7 fL (8.0-11.0); Monocytes % 9.6; Neutrophils % 73.4; Platelet Count 143 10^3/uL (130-400); RBC 3.45 10^6/uL (4.36-5.78); RDW 12.5 % (11.8-14.1); RDW-SD 44.1 fL; WBC 4.25 10^3/uL (4.4-10.8)
[2023-02-18 10:31] LABS: ALT 30 U/L (16-63); AST 24 U/L (15-37); Albumin 3.5 g/dL (3.4-5.0); Alkaline Phosphatase 90 U/L (46-116); Anion Gap 5.5 mmol/L (3-11); BUN 29 mg/dL (7-18); CO2 28.5 mmol/L (21.0-32.0); CREATININE 1.3 mg/dL (0.70-1.30); Calcium 9.7 mg/dL (8.5-10.1); Chloride 106 mmol/L (98-107); Estimated GFR 55.88 (mL/min/1.73m2); Glucose 138 mg/dL (74-106); Potassium 4.2 mmol/L (3.5-5.1); Sodium 140 mmol/L (136-145); Total Protein 6.7 g/dL (6.4-8.2); Troponin I < 50 ng/L (<or=60)
[2023-02-18 10:51] LABS: Procalcitonin < 0.1 ng/mL
[2023-02-18 11:09] VITALS: BP 172/59; BP 177/64; BP 180/59; PULSE 69; PULSE 73; PULSE 77
[2023-02-18 11:30] LABS: Bilirubin Negative (Negative); Blood Negative (Negative); Clarity Clear (Clear); Glucose Negative (Negative); Ketones Negative (Negative); Leukocyte Esterase Negative (Negative); Nitrite Negative (Negative); Urobilinogen 0.2 mg/dL (Up to 0.2)
[2023-02-18 11:47] VITALS: BP 168/82; PULSE 78; RESP 22; TEMP 37; O2SAT 97
--- NOTE | 2023-02-18 13:35 | W.ED.GENAD ---
Discharge Plan Disposition Patient Disposition: Home Condition: Stable Discharge Details Clinical Impression: Light-headed feeling Primary Care Provider: Kai Bonilla ED Provider: Harleen Olivo Home Meds and New Rx's Prescriptions: Continued (DME) vacuum erection device system kit See Dose Instructions .ROUTE .MEDSUPPLY Qty: 1 0RF Dose Instruction: As directed Rx Instructions: As directed docusate sodium [Colace] 100 mg capsule 100 mg PO DAILY ascorbate calcium (vitamin C) 500 mg tablet 500 mg PO DAILY finasteride [Proscar] 5 mg tablet 5 mg PO DAILY Qty: 90 4RF levothyroxine [Synthroid] 25 mcg tablet 25 mcg PO DAILY Qty: 90 4RF lisinopril 2.5 mg tablet 2.5 mg PO DAILY Qty: 90 3RF mirtazapine 15 mg tablet 15 mg PO QHS Qty: 90 4RF simvastatin 10 mg tablet 10 mg PO DAILY Qty: 90 4RF tamsulosin 0.4 mg capsule 0.4 mg PO BID Qty: 180 4RF Centrum Silver Men 300-600-300 mcg Tablet 1 tab PO DAILY polyethylene glycol 3350 [Miralax] 17 gram Powder In Packet 17 g PO PRN PRN Discharge Instructions Additional Instructions: Please have at least eight 8 ounce glasses of water a day, if you add Crystal light you can choose the flavor that is most appealing Please follow-up with your doctor in 24 hours for reassessment and return earlier should you have new or worsening complaints Referrals: Kai Bonilla, PSYCHIATRIC AIDE [Primary Care Provider] - Discharge Data Discharge Date/Time-TO BE ENTERED AT DEPARTURE: 02/18/23 11:46 Medical Decision Making 77-year-old male presents with report of difficulty ambulating secondary to weakness States he has not been drinking, denies any overt dizziness, denies history of similar symptoms in the past. States his symptoms are exacerbated by ambulation, secondary to age and comorbidities and recent head injury I did order CT head, chest x-ray, diagnostic blood work, and orthostatic vital signs, orthostatics within normal limits 1 L of NS and p.o. fluids administered Anemia noted on CBC, this is unchanged from prior when reviewed BUN of 29, slightly increased from prior, suspect element of dehydration as patient appears to be fluid responsive Nonfocal neurological exam, inconsistent with TIA Glucose within normal limits Patient reports that he is feeling symptomatically improved Cranial nerves II through XII intact, ambulatory with steady gait at time of reassessment Regular rate and rhythm without murmur rub cardiovascularly, lungs clear to auscultation, no abdominal tenderness, negative [id number], negative heel culver, negative pronator drift CT per radiology interpretation and my review does not show evidence of acute pathology HPI General Date/Time Provider Initiated Documentation: 02/18/23 09:20. HPI Narrative: 77-year-old male presenting report of lightheadedness that started this morning. States he has not had much to drink in the past 2 days. Having trouble getting out of bed secondary to lightheadedness so presents here for reassessment. Denies dizziness or falls. States when he stood up he saw black spots per patient. He describes this as a tunnel vision sensation. He denies any chest pain, shortness of breath, headache, fever, chills, strength or sensation changes distally. Related Data Home Medications Medication Instructions Recorded Confirmed vacuum erection device system #1 ea 03/28/18 12/24/22 ascorbate calcium (vitamin C) 500 500 mg PO DAILY 03/09/22 12/24/22 mg tablet docusate sodium 100 mg capsule 100 mg PO DAILY 03/09/22 12/24/22 (Colace) [id number] 300 mcg-K 60 1 tab PO DAILY 04/11/22 12/24/22 mcg-lycop 600 mcg-lutein 300 mcg tablet (Centrum Silver Men) polyethylene glycol 3350 17 gram 17 g PO PRN PRN 04/16/22 12/24/22 oral powder packet (Miralax) finasteride 5 mg tablet (Proscar) 5 mg PO DAILY #90 tabs 12/05/22 12/24/22 levothyroxine 25 mcg tablet 25 mcg PO DAILY #90 tabs 12/05/22 12/24/22 (Synthroid) lisinopril 2.5 mg tablet 2.5 mg PO DAILY #90 tabs 12/05/22 12/24/22 mirtazapine 15 mg tablet 15 mg PO QHS #90 tabs 12/05/22 12/24/22 simvastatin 10 mg tablet 10 mg PO DAILY #90 tabs 12/05/22 12/24/22 tamsulosin 0.4 mg capsule 0.4 mg PO BID #180 caps 12/05/22 12/24/22 Previous Rx's Medication Instructions Recorded vacuum erection device system #1 ea 03/28/18 finasteride 5 mg tablet (Proscar) 5 mg PO DAILY #90 tabs 12/05/22 levothyroxine 25 mcg tablet 25 mcg PO DAILY #90 tabs 12/05/22 (Synthroid) lisinopril 2.5 mg tablet 2.5 mg PO DAILY #90 tabs 12/05/22 mirtazapine 15 mg tablet 15 mg PO QHS #90 tabs 12/05/22 simvastatin 10 mg tablet 10 mg PO DAILY #90 tabs 12/05/22 tamsulosin 0.4 mg capsule 0.4 mg PO BID #180 caps 12/05/22 Allergies Allergy/AdvReac Type Severity Reaction Status Date / Time Penicillins Allergy Mild Skin Rash Verified 12/24/22 10:29 cefazolin Allergy Skin Rash Verified 12/24/22 10:29 aspirin AdvReac Mild GI Bleeding Verified 12/24/22 10:29 General Stated Complaint: Dizzy/Sync ERICKA: 3 PFSH All Active Problems (Updated 02/18/23 @ 11:33 by CARLEEN Anthony) Neck pain (Acute) PSVT (paroxysmal supraventricular tachycardia) (Acute) Constipation (Acute) Essential hypertension (Chronic) Anemia of chronic disease (Acute) Abdominal pain (Acute) Back pain (Acute) Ambulatory dysfunction (Acute) Constipation (Chronic) Hepatomegaly (Acute) Mild cognitive impairment (Acute) Generalized anxiety disorder (Acute) Hyperlipidemia (Acute) Obstructive sleep apnea (Chronic) Seasonal allergies (Acute) BPH w urinary obs/LUTS (Acute) Impacted cerumen, right ear (Acute) Cellulitis (Acute) Light-headed feeling (Acute) Medical History Acute confusion Acute kidney injury Ambulatory dysfunction Anemia Anemia, blood loss Arthritis Back pain BPH (benign prostatic hyperplasia) Closed head injury Clostridium difficile enterocolitis Conductive hearing loss COVID-19 Dehydration Dehydration Difficulty in urination Dysphagia Epidural abscess (~10/09/13) Erectile dysfunction Erythema multiforme Feeling of incomplete bladder emptying GERD (gastroesophageal reflux disease) Gram-positive cocci bacteremia History of Clostridioides difficile colitis (~10/2013) Ileus Impacted cerumen, bilateral Insomnia Knee pain Left inguinal hernia Lumbar discitis MSSA (methicillin susceptible Staphylococcus aureus) septicemia (10/09/13) in setting of ruputured appendicitis and found to have disciitis epidural abscess, [facility], [place], [place]; Dr. Casey Mixon, infectious disease MSSA bacteremia Multifocal pneumonia HILDA on CPAP Osteomyelitis of vertebra of thoracolumbar region (~10/09/13) treated w/ 6 weeks of Ancef; seen by Dr. Casey Mixon, infectious disease, [facility], [place], [place]; completed treatment 11/20/2013; complicated by C. difficile colitis Panic anxiety syndrome Rhabdomyolysis SBO (small bowel obstruction) Secondary bacterial pneumonia Sensorineural hearing loss Sepsis Sigmoid diverticulosis Suprapubic pressure Thyroid disease Toxic metabolic encephalopathy Transaminitis Urinary retention Vomiting Surgical History H/O sinus surgery History of bilateral cataract extraction History of cholecystectomy (~1998) History of tonsillectomy and adenoidectomy S/P laparoscopic appendectomy (10/09/13) S/P left inguinal hernia repair Family History Mother No problems noted. Father No problems noted. Social History Smoking/Tobacco Use Status: Former Tobacco Use tobacco type: pipe, cigars and e-cigarettes Second Hand Exposure: No Smoking risk assessment performed?: Yes Alcohol Intake: never Drug use: Never Substance use type: does not use Housing: apartment Communication Needs: None Do you need help understanding health information?: Never Pets and animals: No Sexually active: No Do you think of yourself as: straight/heterosexual Current gender identity: male What is your relationship status?: How often do you talk on the phone with friends or family?: decline to answer How often do you get together with friends or relatives?: once per week How often do you attend jehovah's witness or yarsanism services?: decline to answer Do you belong to any clubs or organized social groups?: no Panel score (0-1 are the most socially isolated patients): 0 What type of physical activity do you participate in: walking Alma/Sikhism: Latter-Day Special alma needs: No Seatbelt use: always Drive intox or ride w/intox frontload driver: No Do you feel safe at home: Yes Do you feel safe in your relationship?: Yes Course Vital Signs Vital signs: Vital Signs Pulse 78 02/18/23 09:14 Respiratory Rate 16 02/18/23 09:14 Blood Pressure 157/60 H 02/18/23 09:14 Pulse Oximetry 98 02/18/23 09:14 Temperature 37 C 02/18/23 11:47 Pulse 78 02/18/23 11:47 Respiratory Rate 22 02/18/23 11:47 Respiratory Effort Normal, Non-Labored 02/18/23 09:21 Respiratory Depth Normal 02/18/23 09:21 Respiratory Pattern Normal 02/18/23 09:21 Blood Pressure 168/82 H 02/18/23 11:47 Pulse Oximetry 97 02/18/23 11:47 Oxygen Delivery Method Room Air 02/18/23 09:14 Oxygen Flow Rate 0 02/18/23 09:14 Pain Level 2 02/18/23 09:18 Lab/Test Results Lab/Test Results: Laboratory Tests Range/Units 02/18/23 02/18/23 02/18/23 09:58 09:58 09:58 WBC (4.4-10.8) 10^3/uL 4.25 L RBC (4.36-5.78) 10^6/uL 3.45 L Hgb (13.5-17.5) g/dL 10.8 L Hct (40.0-50.0) % 32.9 L MCV (80-95) fL 95 MCH (27.0-33.0) pg 31.3 MCHC (32.0-36.0) % 32.8 RDW (11.8-14.1) % 12.5 Plt Count (130-400) 10^3/uL 143 MPV (8.0-11.0) fL 9.7 Immature Gran % 0.2 Neutrophils % 73.4 Lymphocytes % 15.8 Monocytes % 9.6 Eosinophils % 0.5 Basophils % 0.5 Nucleated RBC % (0.0-0.3) % 0.0 Absolute Neutrophils (1.2-6.7) 10^3/uL 3.12 Absolute Lymphocytes (1.2-3.4) 10^3/uL 0.67 L Absolute Monocytes (0.1-0.8) 10^3/uL 0.41 Absolute Eosinophils (0.0-0.7) 10^3/uL 0.02 Absolute Basophils (0.0-0.2) 10^3/uL 0.02 VBG Lactate (0.6-1.4) mmol/L Sodium (136-145) mmol/L 140 Potassium (3.5-5.1) mmol/L 4.2 Chloride (98-107) mmol/L 106 Carbon Dioxide (21.0-32.0) mmol/L 28.5 Anion Gap (3-11) mmol/L 5.5 BUN (7-18) mg/dL 29 H Creatinine (0.70-1.30) mg/dL 1.3 Est GFR (CKD-EPI 2020) (mL/min/1.73m2) 55.88 Glucose (74-106) mg/dL 138 H Calcium (8.5-10.1) mg/dL 9.7 Magnesium (1.8-2.4) mg/dL 2.0 Total Bilirubin (0.2-1.0) mg/dL 1.0 AST (15-37) U/L 24 ALT (16-63) U/L 30 Alkaline Phosphatase (46-116) U/L 90 Troponin I (<or=60) ng/L < 50 Total Protein (6.4-8.2) g/dL 6.7 Albumin (3.4-5.0) g/dL 3.5 Procalcitonin ng/mL Urine Color (Yellow) Urine Clarity (Clear) Urine pH (5-8) Ur Specific [place] (1.005-1.025) Urine Protein (Negative) mg/dL Urine Ketones (Negative) mg/dL Urine Blood (Negative) Urine Nitrite (Negative) Urine Bilirubin (Negative) Urine Urobilinogen (Up to 0.2) mg/dL Ur Leukocyte Esterase (Negative) Urine Glucose (Negative) mg/dL Patient ABO/Rh A Positive Antibody Screen NEGATIVE Range/Units 02/18/23 02/18/23 02/18/23 09:58 10:27 12:18 WBC (4.4-10.8) 10^3/uL RBC (4.36-5.78) 10^6/uL Hgb (13.5-17.5) g/dL Hct (40.0-50.0) % MCV (80-95) fL MCH (27.0-33.0) pg MCHC (32.0-36.0) % RDW (11.8-14.1) % Plt Count (130-400) 10^3/uL MPV (8.0-11.0) fL Immature Gran % Neutrophils % Lymphocytes % Monocytes % Eosinophils % Basophils % Nucleated RBC % (0.0-0.3) % Absolute Neutrophils (1.2-6.7) 10^3/uL Absolute Lymphocytes (1.2-3.4) 10^3/uL Absolute Monocytes (0.1-0.8) 10^3/uL Absolute Eosinophils (0.0-0.7) 10^3/uL Absolute Basophils (0.0-0.2) 10^3/uL VBG Lactate (0.6-1.4) mmol/L 1.6 H Sodium (136-145) mmol/L Potassium (3.5-5.1) mmol/L Chloride (98-107) mmol/L Carbon Dioxide (21.0-32.0) mmol/L Anion Gap (3-11) mmol/L BUN (7-18) mg/dL Creatinine (0.70-1.30) mg/dL Est GFR (CKD-EPI 2020) (mL/min/1.73m2) Glucose (74-106) mg/dL Calcium (8.5-10.1) mg/dL Magnesium (1.8-2.4) mg/dL Total Bilirubin (0.2-1.0) mg/dL AST (15-37) U/L ALT (16-63) U/L Alkaline Phosphatase (46-116) U/L Troponin I (<or=60) ng/L Cancelled Total Protein (6.4-8.2) g/dL Albumin (3.4-5.0) g/dL Procalcitonin ng/mL < 0.1 Urine Color (Yellow) Yellow Urine Clarity (Clear) Clear Urine pH (5-8) 6.0 Ur Specific [place] (1.005-1.025) 1.020 Urine Protein (Negative) mg/dL Negative Urine Ketones (Negative) mg/dL Negative Urine Blood (Negative) Negative Urine Nitrite (Negative) Negative Urine Bilirubin (Negative) Negative Urine Urobilinogen (Up to 0.2) mg/dL 0.2 Ur Leukocyte Esterase (Negative) Negative Urine Glucose (Negative) mg/dL Negative Patient ABO/Rh Antibody Screen
== END 2023-02-18 11:46 | disposition home or self-care (01) ==
PROVIDERS: Emergency Provider Physician Assistant; PCP Nurse Practitioner Family
DX: R55 Syncope and collapse (principal); R42 Dizziness and giddiness; R53.1 Weakness; D64.9 Anemia, unspecified
CPT/HCPCS: 80053; 84145; 86850; 86900; 86901; 93005; 96360; 99285; 70450; 71046; 81003; 83605; 83735; 84484; 85025; 93010; 99284

== ENCOUNTER 2023-03-13 08:02 | Observation (INO) | payer MEDICARE, SELFPAY ==
[2023-03-13] VITALS (44 sets, daily range): BP systolic 98–153; BP diastolic 32–110; PULSE 57–146; RESP 12–25; TEMP 36.4–37.3; O2SAT 96–98
--- NOTE | 2023-03-13 07:45 | RT.EKG_ITS ---
APPROVED REPORT Exam: Resting ECG Reason for Exam: CHEST PAIN Patient Location: E HR:89 bpm ECG Measurements Heart Rate 89 AXIS RI 165 P 57 QRSd 93 QRS 59 QT 348 T 43 QTc 425 Conclusion Sinus rhythm...normal P axis, V-rate 60- 99 sinus rhythm, normal axis, normal intervals, non ischemic
--- NOTE | 2023-03-13 08:15 | DI.CT_ITS ---
Exam(s) CT THORAX ABD/PEL CTA EXAM: CT THORAX ABD/PEL CTA CLINICAL HISTORY: abdominal and chest pain, tachycardia. TECHNIQUE: Imaging Protocol: Axial CT angiography was performed with multi-slice acquisition and m ulti-planar and/or 3D reconstructions. CONTRAST MATERIAL: Intravenous: Omnipaque 350 contrast volume:100 mL Oral: No COMPARISON: CT CT ABDOMEN PELVIS WO from 05/04/[address] THORACIC LUMBAR SPINE REC from 12/12/[address] CHEST/ABD/PEL WO from 12/12/[address] ABDOMEN PELVIS W from 04/16/2022 FINDINGS: CHEST: Tracheobronchial tree: Patent where visualized. Pulmonary parenchyma: There is pulmonary fibrosis. There is a small infiltrate in the posterior aspe ct of the right upper lobe. There is a stable subpleural nodule in the left lower lobe. No architec tural distortion. Pulmonary Arteries: No evidence of filling defect to suggest pulmonary emboli. Mediastinum and Navya: No dominant adenopathy or fluid collection. The esophagus is unremarkable. Visualized thyroid: Unremarkable. Pleura: No effusion or pneumothorax. Heart: The heart is not dilated. Coronary artery calcification is present. No pericardial effusion. Aorta: Thoracic aorta non-dilated. Mild atherosclerosis. No evidence of dissection. Soft Tissues: Mild gynecomastia. Bones: Within normal limits for the patient's age.No fractures appreciated. ABDOMEN AND PELVIS: Abdomen: Celiac axis/mesenteric arteries: No evidence of occlusion or significant stenosis. Mild atherosclero sis. Renal Arteries: No evidence of occlusion or significant stenosis. There is a single renal artery per fusing each kidney. Aorta: No evidence of occlusion or significant stenosis. No aneurysm or dissection. Mild atheroscl erosis. Pelvis: Iliac Arteries: No evidence of occlusion or significant stenosis. Mild atherosclerosis. Common Femoral Arteries: No evidence of occlusion or significant stenosis. Mild atherosclerosis. ABDOMEN: Liver: Normal density. No measurable mass. Gallbladder and Biliary Tract: The gallbladder is absent. There is no biliary ductal dilatation. Pancreas: Normal density, no abnormal calcifications or inflammatory process. Spleen: Normal. Adrenals: No masses seen. Kidneys: Normal size, contour and axis. No radiodense stones or obstructive uropathy. No masses seen. Bowel: There is diverticulosis of the colon but no evidence of acute diverticulitis. There is a mode rate amount of stool throughout the colon suggesting constipation. There is no evidence of bowel wal l thickening or obstruction. No evidence of pneumatosis. No evidence of appendicitis. Peritoneal Cavity: No ascites, collection or mesenteric inflammatory response. No free air. Lymph Nodes: Within normal limits. Bones: Within normal limits for the patient's age. Soft Tissues: Unremarkable. PELVIS: Bladder: Symmetric distention, no gross wall thickening. Reproductive Organs: Unremarkable as visualized. Lymph Nodes: Within normal limits. Bones: Within normal limits for the patient's age. IMPRESSION: 1. No evidence of thoracic aortic dissection or pulmonary embolism. 2. No evidence of abdominal pelvic aneurysm or dissection. 3. Small infiltrate in the posterior aspect of the right upper lobe. 4. No acute abdominal or pelvic process. 5. Findings were discussed with Harleen Olivo at 9:39 a.m. on 03/13/2023. RADIATION DOSE DELIVERED: Total DLP DATA REPOSITORY: All CT scans at this facility are submitted to the National Radiology Data Registry (NRDR) Dose Index Registry (DIR) with the [employer] (A[employer]). RADIATION OPTIMIZATION: All CT scans at this facility use at least one of these dose optimization te chniques: automated exposure control; mA and/or kV adjustment per patient size (includes targeted exa ms where dose is matched to clinical indication); or iterative reconstruction.
[2023-03-13] MEDS: Lactated Ringers 1,000 ML 1000 ML IV (08:37)
[2023-03-13 08:57] LABS: Absolute Basophil Count 0.03 10^3/uL (0.0-0.2); Absolute Eosinophil Count 0.02 10^3/uL (0.0-0.7); Absolute Lymphocyte Count 0.77 10^3/uL (1.2-3.4); Absolute Monocyte Count 0.38 10^3/uL (0.1-0.8); Absolute Neutrophil Count 2.11 10^3/uL (1.2-6.7); Basophils % 0.9; Eosinophils % 0.6; HCT 33.2 % (40.0-50.0); HGB 10.9 g/dL (13.5-17.5); Lymphocytes % 23.3; MCH 31.6 pg (27.0-33.0); MCHC 32.8 % (32.0-36.0); MCV 96 fL (80-95); MPV 10.2 fL (8.0-11.0); Monocytes % 11.5; Neutrophils % 63.7; Platelet Count 146 10^3/uL (130-400); RBC 3.45 10^6/uL (4.36-5.78); RDW-SD 45.6 fL; WBC 3.31 10^3/uL (4.4-10.8)
[2023-03-13] MEDS: Normal Saline - Diluent 50 ML VIAL IJ (09:01)
[2023-03-13] MEDS: Omnipaque 350 MG/ML 500 ML BTL-Imaging package IJ (09:03)
[2023-03-13 09:12] LABS: ALT 29 U/L (16-63); AST 25 U/L (15-37); Albumin 3.6 g/dL (3.4-5.0); Alkaline Phosphatase 92 U/L (46-116); Anion Gap 5.9 mmol/L (3-11); BUN 29 mg/dL (7-18); Bilirubin, Total 1.2 mg/dL (0.2-1.0); CO2 27.1 mmol/L (21.0-32.0); CREATININE 1.3 mg/dL (0.70-1.30); Calcium 9.5 mg/dL (8.5-10.1); Chloride 107 mmol/L (98-107); Creatine Kinase 113 U/L (39-308); Estimated GFR 55.88 (mL/min/1.73m2); Glucose 131 mg/dL (74-106); Lipase 57 U/L (16-77); Magnesium 1.9 mg/dL (1.8-2.4); Potassium 4.2 mmol/L (3.5-5.1); Sodium 140 mmol/L (136-145); TSH (W/Ref FT4) 2.35 uIU/mL (0.36-3.74); Total Protein 6.7 g/dL (6.4-8.2); Troponin I < 50 ng/L (<or=60)
--- NOTE | 2023-03-13 09:33 | ED.GENADUL_ITS ---
Discharge Plan Disposition Patient Disposition: Admit to [facility] Condition: Serious Discharge Details Clinical Impression: Near syncope, Hypotension Admit Date/Time: 03/13/23 11:45 Admit Provider: Florence Lowery Attending Provider: Florence Lowery Primary Care Provider: Kai Bonilla ED Provider: Harleen Olivo Discharge Data Discharge Date/Time-TO BE ENTERED AT DEPARTURE: 03/13/23 15:09 Medical Decision Making 77-year-old male, alert and oriented, presenting via EMS for hypotension and tachycardia, prehospital EKG is displaying heart rate of 151, however the rate is actually 75 appears to almost be a junctional rhythm History of paroxysmal SVT but does not appear to be in SVT at this time Our EKG shows baseline rhythm for patient, normal sinus, blood pressure after 500 cc bolus is 90/50, nonfocal neurological exam, patient had some epigastric and periumbilical pain, given reported complaints and comorbidities, CTA chest abdomen pelvis was ordered for evaluation of PE versus dissection, these are both negative, per radiology interpretation and my review Patient with possible right upper lobe infiltrate versus atelectasis, afebrile and nontoxic, fluid responsive, ambulatory but still reporting some weakness In the presence of presyncopal symptoms, using [place] syncope rule, this patient is not considered low risk for dysrhythmia and will be admitted for monitoring, case discussed with Dr. Lowery who will admit patient, remainder of labs are baseline for patient, orthostatics negative We will hold on antibiotics at this time as patient is not hypoxic and does not have leukocytosis HPI General Date/Time Provider Initiated Documentation: 03/13/23 08:03 . HPI Narrative: 68-year-old male past medical history of hyperlipidemia, mild cognitive impairment, paroxysmal SVT, cellulitis presents with report of lightheadedness, palpitations, abdominal chest discomfort which started this morning. He states he went out for his usual walk this morning which he describes as being at a very slow speed and sat down to use the restroom when he tried to stand up she felt generally weak and lightheaded. He felt like he may pass out. This happened 3 times and then he called the ambulance as he cannot stand independently. He states he had pain or palpitations in his abdomen and chest. Denies any fever or chills, he denies any falls or injuries. He denies calf pain or swelling. EMS states patient was hypotensive, 70/40 on arrival. Related Data Home Medications Medication Instructions Recorded Confirmed vacuum erection device system #1 ea 03/28/18 12/24/22 ascorbate calcium (vitamin C) 500 500 mg PO DAILY 03/09/22 03/13/23 mg tablet docusate sodium 100 mg capsule 100 mg PO DAILY 03/09/22 03/13/23 (Colace) [id number] 300 mcg-K 60 1 tab PO DAILY 04/11/22 03/13/23 mcg-lycop 600 mcg-lutein 300 mcg tablet (Centrum Silver Men) finasteride 5 mg tablet (Proscar) 5 mg PO DAILY #90 tabs 12/05/22 03/13/23 levothyroxine 25 mcg tablet 25 mcg PO DAILY #90 tabs 12/05/22 03/13/23 (Synthroid) lisinopril 2.5 mg tablet 2.5 mg PO DAILY #90 tabs 12/05/22 03/13/23 mirtazapine 15 mg tablet 15 mg PO QHS #90 tabs 12/05/22 03/13/23 simvastatin 10 mg tablet 10 mg PO DAILY #90 tabs 12/05/22 03/13/23 tamsulosin 0.4 mg capsule 0.4 mg PO BID #180 caps 12/05/22 03/13/23 polyethylene glycol 3350 17 gram 17 g PO BID #0 ea 03/14/23 03/13/23 oral powder packet (Miralax) Previous Rx's Medication Instructions Recorded vacuum erection device system #1 ea 03/28/18 finasteride 5 mg tablet (Proscar) 5 mg PO DAILY #90 tabs 12/05/22 levothyroxine 25 mcg tablet 25 mcg PO DAILY #90 tabs 12/05/22 (Synthroid) lisinopril 2.5 mg tablet 2.5 mg PO DAILY #90 tabs 12/05/22 mirtazapine 15 mg tablet 15 mg PO QHS #90 tabs 12/05/22 simvastatin 10 mg tablet 10 mg PO DAILY #90 tabs 12/05/22 tamsulosin 0.4 mg capsule 0.4 mg PO BID #180 caps 12/05/22 polyethylene glycol 3350 17 gram 17 g PO BID #0 ea 03/14/23 oral powder packet (Miralax) Allergies Allergy/AdvReac Type Severity Reaction Status Date / Time Penicillins Allergy Mild Skin Rash Verified 03/13/23 08:29 cefazolin Allergy Skin Rash Verified 03/13/23 08:29 aspirin AdvReac Mild GI Bleeding Verified 03/13/23 08:29 General Stated Complaint: Chest Pain ERICKA: 2 PFSH All Active Problems (Updated 03/14/23 @ 16:34 by CARLEEN Anthony) Hypotension (Acute) Discharge planning issues (Acute) DVT prophylaxis (Acute) Near syncope (Acute) Light-headed feeling (Acute) Cellulitis (Acute) Impacted cerumen, right ear (Acute) BPH w urinary obs/LUTS (Chronic) Seasonal allergies (Acute) Obstructive sleep apnea (Chronic) Hyperlipidemia (Acute) Generalized anxiety disorder (Acute) Mild cognitive impairment (Acute) Hepatomegaly (Acute) Constipation (Chronic) Ambulatory dysfunction (Acute) Back pain (Acute) Abdominal pain (Acute) Anemia of chronic disease (Acute) Essential hypertension (Chronic) Constipation (Acute) PSVT (paroxysmal supraventricular tachycardia) (Acute) Neck pain (Acute) Medical History Acute confusion Acute kidney injury Ambulatory dysfunction Anemia Anemia, blood loss Arthritis Back pain BPH (benign prostatic hyperplasia) Closed head injury Clostridium difficile enterocolitis Conductive hearing loss COVID-19 Dehydration Dehydration Difficulty in urination Dysphagia Epidural abscess (~10/09/13) Erectile dysfunction Erythema multiforme Feeling of incomplete bladder emptying GERD (gastroesophageal reflux disease) Gram-positive cocci bacteremia History of Clostridioides difficile colitis (~10/2013) Ileus Impacted cerumen, bilateral Insomnia Knee pain Left inguinal hernia Lumbar discitis MSSA (methicillin susceptible Staphylococcus aureus) septicemia (10/09/13) in setting of ruputured appendicitis and found to have disciitis epidural abscess, [facility], [place], [place]; Dr. Casey Mixon, infectious disease MSSA bacteremia Multifocal pneumonia HILDA on CPAP Osteomyelitis of vertebra of thoracolumbar region (~10/09/13) treated w/ 6 weeks of Ancef; seen by Dr. Casey Mixon, infectious disease, [facility], [place], [place]; completed treatment 11/20/2013; complicated by C. difficile colitis Panic anxiety syndrome Rhabdomyolysis SBO (small bowel obstruction) Secondary bacterial pneumonia Sensorineural hearing loss Sepsis Sigmoid diverticulosis Suprapubic pressure Thyroid disease Toxic metabolic encephalopathy Transaminitis Urinary retention Vomiting Surgical History H/O sinus surgery History of bilateral cataract extraction History of cholecystectomy (~1998) History of tonsillectomy and adenoidectomy S/P laparoscopic appendectomy (10/09/13) S/P left inguinal hernia repair Family History Mother No problems noted. Father No problems noted. Social History Smoking/Tobacco Use Status: Former Tobacco Use tobacco type: pipe, cigars and e-cigarettes Second Hand Exposure: No Smoking risk assessment performed?: Yes Alcohol Intake: never Drug use: Never Substance use type: does not use Housing: apartment Communication Needs: None Do you need help understanding health information?: Never Pets and animals: No Sexually active: No Do you think of yourself as: straight/heterosexual Current gender identity: male What is your relationship status?: How often do you talk on the phone with friends or family?: decline to answer How often do you get together with friends or relatives?: once per week How often do you attend yarsanism or cheondoism services?: decline to answer Do you belong to any clubs or organized social groups?: no Panel score (0-1 are the most socially isolated patients): 0 What type of physical activity do you participate in: walking Alma/Samaritan: Anabaptist Special alma needs: No Seatbelt use: always Drive intox or ride w/intox parts delivery driver: No Do you feel safe at home: Yes Do you feel safe in your relationship?: Yes Course Vital Signs Vital signs: Vital Signs Temperature 37.3 C 03/13/23 07:59 Pulse 144 H 03/13/23 07:59 Respiratory Rate 18 03/13/23 07:59 Blood Pressure 98/59 L 03/13/23 07:59 Pulse Oximetry 98 03/13/23 07:59 Temperature 37.3 C 03/13/23 07:59 Temperature Source Skin 03/13/23 07:59 Pulse 86 03/13/23 08:46 Pulse 84 03/13/23 08:46 Respiratory Rate 15 03/13/23 08:46 Respiratory Effort Normal 03/13/23 08:22 Respiratory Depth Normal 03/13/23 08:22 Respiratory Pattern Normal 03/13/23 08:22 Blood Pressure 121/98 H 03/13/23 08:46 Blood Pressure Mean 105 03/13/23 08:46 Pulse Oximetry 98 03/13/23 07:59 Oxygen Delivery Method Room Air 03/13/23 07:59 Oxygen Flow Rate 0 03/13/23 07:59 Pain Level 3 03/13/23 08:22 Lab/Test Results Lab/Test Results: Laboratory Tests Range/Units 03/13/23 03/13/23 08:10 08:10 WBC (4.4-10.8) 10^3/uL 3.31 L RBC (4.36-5.78) 10^6/uL 3.45 L Hgb (13.5-17.5) g/dL 10.9 L Hct (40.0-50.0) % 33.2 L MCV (80-95) fL 96 H MCH (27.0-33.0) pg 31.6 MCHC (32.0-36.0) % 32.8 RDW (11.8-14.1) % 13.0 Plt Count (130-400) 10^3/uL 146 MPV (8.0-11.0) fL 10.2 Immature Gran % 0.0 Neutrophils % 63.7 Lymphocytes % 23.3 Monocytes % 11.5 Eosinophils % 0.6 Basophils % 0.9 Nucleated RBC % (0.0-0.3) % 0.0 Absolute Neutrophils (1.2-6.7) 10^3/uL 2.11 Absolute Lymphocytes (1.2-3.4) 10^3/uL 0.77 L Absolute Monocytes (0.1-0.8) 10^3/uL 0.38 Absolute Eosinophils (0.0-0.7) 10^3/uL 0.02 Absolute Basophils (0.0-0.2) 10^3/uL 0.03 Sodium (136-145) mmol/L 140 Potassium (3.5-5.1) mmol/L 4.2 Chloride (98-107) mmol/L 107 Carbon Dioxide (21.0-32.0) mmol/L 27.1 Anion Gap (3-11) mmol/L 5.9 BUN (7-18) mg/dL 29 H Creatinine (0.70-1.30) mg/dL 1.3 Est GFR (CKD-EPI 2020) (mL/min/1.73m2) 55.88 Glucose (74-106) mg/dL 131 H Calcium (8.5-10.1) mg/dL 9.5 Magnesium (1.8-2.4) mg/dL 1.9 Total Bilirubin (0.2-1.0) mg/dL 1.2 H AST (15-37) U/L 25 ALT (16-63) U/L 29 Alkaline Phosphatase (46-116) U/L 92 Creatine Kinase (39-308) U/L 113 Troponin I (<or=60) ng/L < 50 Cancelled Total Protein (6.4-8.2) g/dL 6.7 Albumin (3.4-5.0) g/dL 3.6 Lipase (16-77) U/L 57 TSH (0.36-3.74) uIU/mL 2.35
[2023-03-13 09:39] LABS: Bilirubin Negative (Negative); Blood Negative (Negative); Clarity Clear (Clear); Glucose Negative (Negative); Ketones Negative (Negative); Leukocyte Esterase Negative (Negative); Nitrite Negative (Negative); Specific Gravity 1.015 (1.005-1.025); Urobilinogen 0.2 mg/dL (Up to 0.2); pH 7.5 (5-8)
[2023-03-13] MEDS: Lactated Ringers 500 ML IV (10:36)
[2023-03-13 11:47] LABS: Troponin I < 50 ng/L (<or=60)
[2023-03-13 13:32] LABS: Source Nasal/Nares
--- NOTE | 2023-03-13 14:18 | W.PM.HP.N ---
Date of service: 03/13/23 Time of Service: 14:18 Assessment and Plan Assessment and plan (1) Near syncope: Status: Acute Assessment and plan: Given the history of having just had a BM that he had reported to the ER, though he denied this to me, I suspect this was a vaso-vagal event; however, the history is vague. I cannot rule out an arrhythmia. Will monitor on tele. Obtain an echocardiogram. (2) Palpitations: Status: Acute Assessment and plan: H/o pSVT. As above (3) BPH w urinary obs/LUTS: Status: Chronic Assessment and plan: Continue flomax and proscar while monitoring for hypotension/orthostasis. Check bladder scans. Treat constipation - schedule bowel regimen. (4) Obstructive sleep apnea: Status: Chronic Assessment and plan: Will inquire re use of CPAP (5) Constipation: Status: Chronic Assessment and plan: Provide a bowel regimen (6) DVT prophylaxis: Status: Acute Assessment and plan: SC heparin (7) Discharge planning issues: Status: Acute Assessment and plan: DNR/DNI C/s PT Anticipate discharge home tomorrow with a cardiac event recorder. History of Present Illness History of Present Illness Chief Complaint: two or three near-syncopal episodes Narrative: Mr Hanson is a 77 year old male with PMHx of PSVT, per chart review, hypertension, constipation, BPH, HILDA, who was evaluated in our emergency department on 02/18/23 for weakness with an unremarkable workup and a discharge home, who returned to [facility] ED today after reporting three near-syncopal episodes in an attempt to get up from the toilet after having a BM, per the ED provider. During this, the patient reported palpitations to the ED provider. To me, he states that the BM happened a lot earlier in the morning, that there were only 2 episodes of near syncope. The first time was when he got up from a chair after breakfast and saw black spots. He sat down and it went away. The second time was when he got up from the same chair and saw black spots again accompanied by a feeling of gas in his epigastrium. Denies diaphoresis, CP, SOB, nausea, abdominal pain. He called EMS. Symptoms went away by the time of arrival to the hospital. When EMS evaluated the patient at the scene, the monitor strip read HR as 150, which was actually 75 by manual review. His BP was 70/40 for EMS. He received IVF en route and, by the time of his arrival to the ER, his BP was 98/59. He was not orthostatic, per ER provider. He did not have any evidence of arrhythmia while in the ER. Observation on the hospitalist service was requested. The patient does endorse feeling constipated and that sometimes, when he takes miralax, urination gets easier too. Review of Systems All systems reviewed & are unremarkable except as noted in HPI and below PFSH All Active Problems (Updated 03/13/23 @ 15:09 by Florence Lowery MD) Discharge planning issues (Acute) DVT prophylaxis (Acute) Near syncope (Acute) Palpitations (Acute) Light-headed feeling (Acute) Cellulitis (Acute) Impacted cerumen, right ear (Acute) BPH w urinary obs/LUTS (Chronic) Seasonal allergies (Acute) Obstructive sleep apnea (Chronic) Hyperlipidemia (Acute) Generalized anxiety disorder (Acute) Mild cognitive impairment (Acute) Hepatomegaly (Acute) Constipation (Chronic) Ambulatory dysfunction (Acute) Back pain (Acute) Abdominal pain (Acute) Anemia of chronic disease (Acute) Essential hypertension (Chronic) Constipation (Acute) PSVT (paroxysmal supraventricular tachycardia) (Acute) Neck pain (Acute) Medical History Acute confusion Acute kidney injury Ambulatory dysfunction Anemia Anemia, blood loss Arthritis Back pain BPH (benign prostatic hyperplasia) Closed head injury Clostridium difficile enterocolitis Conductive hearing loss COVID-19 Dehydration Dehydration Difficulty in urination Dysphagia Epidural abscess (~10/09/13) Erectile dysfunction Erythema multiforme Feeling of incomplete bladder emptying GERD (gastroesophageal reflux disease) Gram-positive cocci bacteremia History of Clostridioides difficile colitis (~10/2013) Ileus Impacted cerumen, bilateral Insomnia Knee pain Left inguinal hernia Lumbar discitis MSSA (methicillin susceptible Staphylococcus aureus) septicemia (10/09/13) in setting of ruputured appendicitis and found to have disciitis epidural abscess, [facility], [place], [place]; Dr. Casey Mixon, infectious disease MSSA bacteremia Multifocal pneumonia HILDA on CPAP Osteomyelitis of vertebra of thoracolumbar region (~10/09/13) treated w/ 6 weeks of Ancef; seen by Dr. Casey Mixon, infectious disease, [place], [place]; completed treatment 11/20/2013; complicated by C. difficile colitis Panic anxiety syndrome Rhabdomyolysis SBO (small bowel obstruction) Secondary bacterial pneumonia Sensorineural hearing loss Sepsis Sigmoid diverticulosis Suprapubic pressure Thyroid disease Toxic metabolic encephalopathy Transaminitis Urinary retention Vomiting Surgical History H/O sinus surgery History of bilateral cataract extraction History of cholecystectomy (~1998) History of tonsillectomy and adenoidectomy S/P laparoscopic appendectomy (10/09/13) S/P left inguinal hernia repair Family History Mother No problems noted. Father No problems noted. Social History Smoking/Tobacco Use Status: Former Tobacco Use tobacco type: pipe, cigars and e-cigarettes Second Hand Exposure: No Smoking risk assessment performed?: Yes Alcohol Intake: never Drug use: Never Substance use type: does not use Housing: apartment Communication Needs: None Do you need help understanding health information?: Never Pets and animals: No Sexually active: No Do you think of yourself as: straight/heterosexual Current gender identity: male What is your relationship status?: How often do you talk on the phone with friends or family?: decline to answer How often do you get together with friends or relatives?: once per week How often do you attend taoism or methodist services?: decline to answer Do you belong to any clubs or organized social groups?: no Panel score (0-1 are the most socially isolated patients): 0 What type of physical activity do you participate in: walking Alma/Evangelical: Episcopal Special alma needs: No Seatbelt use: always Drive intox or ride w/intox class a truck driver: No Do you feel safe at home: Yes Do you feel safe in your relationship?: Yes Meds Allergies and Home Medications Allergies Allergy/AdvReac Type Severity Reaction Status Date / Time Penicillins Allergy Mild Skin Rash Verified 03/13/23 08:29 cefazolin Allergy Skin Rash Verified 03/13/23 08:29 aspirin AdvReac Mild GI Bleeding Verified 03/13/23 08:29 Home Medications Medication Instructions Recorded Confirmed Type vacuum erection device system #1 ea 03/28/18 12/24/22 Rx ascorbate calcium (vitamin C) 500 500 mg PO DAILY 03/09/22 03/13/23 History mg tablet docusate sodium 100 mg capsule 100 mg PO DAILY 03/09/22 03/13/23 History (Colace) [id number] 300 mcg-K 60 1 tab PO DAILY 04/11/22 03/13/23 History mcg-lycop 600 mcg-lutein 300 mcg tablet (Centrum Silver Men) polyethylene glycol 3350 17 gram 17 g PO PRN PRN 04/16/22 03/13/23 History oral powder packet (Miralax) finasteride 5 mg tablet (Proscar) 5 mg PO DAILY #90 tabs 12/05/22 03/13/23 Rx levothyroxine 25 mcg tablet 25 mcg PO DAILY #90 tabs 12/05/22 03/13/23 Rx (Synthroid) lisinopril 2.5 mg tablet 2.5 mg PO DAILY #90 tabs 12/05/22 03/13/23 Rx mirtazapine 15 mg tablet 15 mg PO QHS #90 tabs 12/05/22 03/13/23 Rx simvastatin 10 mg tablet 10 mg PO DAILY #90 tabs 12/05/22 03/13/23 Rx tamsulosin 0.4 mg capsule 0.4 mg PO BID #180 caps 12/05/22 03/13/23 Rx Exam Narrative Exam Narrative: General: Pleasant forgetful elderly male who is A&Ox3, NAD Neurological: A&Ox3, no focal deficits, forgetful Psychiatric: APpropriate speech pattern/content Skin: Visible skin intact HEENT: Atraumatic, normocephalic, EOMI, MMM, clear oropharynx, no submandibular or cervical lymphadenopathy, no goiter or JVD Cardiovascular: RRR, no m/rg/ Lungs: CTAB Gastrointestinal: Soft, notender, nondistended Genitourinary: deferred Extremities: no edema BLEs, 2+ pedal pulses B Results Imaging Additional studies: CTA chest/abdomen/pelvis: 1. No evidence of thoracic aortic dissection or pulmonary embolism. 2. No evidence of abdominal pelvic aneurysm or dissection. 3. Small infiltrate in the posterior aspect of the right upper lobe. 4. No acute abdominal or pelvic process. EKG: HR 89, NSR, no acute ischemia Labs 03/13/23 08:10 03/13/23 08:10 Labs: Laboratory Results - last 24 hr 03/13/23 03/13/23 03/13/23 08:10 08:10 09:27 WBC 3.31 L RBC 3.45 L Hgb 10.9 L Hct 33.2 L MCV 96 H MCH 31.6 MCHC 32.8 RDW 13.0 Plt Count 146 MPV 10.2 Immature Gran % 0.0 Neutrophils % 63.7 Lymphocytes % 23.3 Monocytes % 11.5 Eosinophils % 0.6 Basophils % 0.9 Nucleated RBC % 0.0 Absolute Neutrophils 2.11 Absolute Lymphocytes 0.77 L Absolute Monocytes 0.38 Absolute Eosinophils 0.02 Absolute Basophils 0.03 Sodium 140 Potassium 4.2 Chloride 107 Carbon Dioxide 27.1 Anion Gap 5.9 BUN 29 H Creatinine 1.3 Est GFR (CKD-EPI 2020) 55.88 Glucose 131 H Calcium 9.5 Magnesium 1.9 Total Bilirubin 1.2 H AST 25 ALT 29 Alkaline Phosphatase 92 Creatine Kinase 113 Troponin I < 50 Cancelled Total Protein 6.7 Albumin 3.6 Lipase 57 TSH 2.35 Urine Color Yellow Urine Clarity Clear Urine pH 7.5 Ur Specific [place] 1.015 Urine Protein Negative Urine Ketones Negative Urine Blood Negative Urine Nitrite Negative Urine Bilirubin Negative Urine Urobilinogen 0.2 Ur Leukocyte Esterase Negative Urine Glucose Negative COVID-19 Source 03/13/23 03/13/23 11:25 13:28 WBC RBC Hgb Hct MCV MCH MCHC RDW Plt Count MPV Immature Gran % Neutrophils % Lymphocytes % Monocytes % Eosinophils % Basophils % Nucleated RBC % Absolute Neutrophils Absolute Lymphocytes Absolute Monocytes Absolute Eosinophils Absolute Basophils Sodium Potassium Chloride Carbon Dioxide Anion Gap BUN Creatinine Est GFR (CKD-EPI 2020) Glucose Calcium Magnesium Total Bilirubin AST ALT Alkaline Phosphatase Creatine Kinase Troponin I < 50 Total Protein Albumin Lipase TSH Urine Color Urine Clarity Urine pH Ur Specific [place] Urine Protein Urine Ketones Urine Blood Urine Nitrite Urine Bilirubin Urine Urobilinogen Ur Leukocyte Esterase Urine Glucose COVID-19 Source Nasal/Nares Last Vital Signs Temp 37.3 C 03/13/23 07:59 Pulse 63 03/13/23 13:31 Resp 17 03/13/23 13:26 BP 150/56 H 03/13/23 13:31 Pulse Ox 98 03/13/23 07:59 Time Spent Time spent with Patient: 40-54 minutes Time was spent: preparing to see the patient(eg.review tests), obtaining and/or reviewing separately otained hiistory, ordering medications,tests, procedures, referring, communicating with other health care director rn, indepentently interpreting results, counseling the patient and care coordination
[2023-03-13 14:20] LABS: COVID-19 PCR Negative (Negative)
--- NOTE | 2023-03-13 18:26 | RESPIRATORY ---
RT spoke with patient concerning the use of an [id number] Auto-Set CPAP device in his chart. Patient stated he does use this unit but is unable to have anyone bring it in tonight. Patient stated he believes he's only here for the night and feel he will be ok without it. If the patient stays tomorrow night also, he might be able to have someone bring it in but not totally sure.
[2023-03-13] MEDS: Heparin 5,000 UNITS/ML VIAL 5000 UNITS SC (21:21)
[2023-03-13] MEDS: Simvastatin 10 MG TAB PO (21:21)
[2023-03-13] MEDS: Tamsulosin 0.4 MG CAPCR PO (21:21)
[2023-03-13] MEDS: Mirtazapine 15 MG TAB PO (21:21)
[2023-03-14 03:07] VITALS: BP 134/75; PULSE 56; RESP 16; TEMP 36.6
[2023-03-14] MEDS: Levothyroxine 25 MCG TAB PO (05:02)
[2023-03-14] MEDS: Heparin 5,000 UNITS/ML VIAL 5000 UNITS SC (05:02)
[2023-03-14 06:55] LABS: Abs Immature Grans 0.01 10^3/uL (0.0-0.06); Absolute Basophil Count 0.03 10^3/uL (0.0-0.2); Absolute Eosinophil Count 0.03 10^3/uL (0.0-0.7); Absolute Lymphocyte Count 0.76 10^3/uL (1.2-3.4); Absolute Monocyte Count 0.36 10^3/uL (0.1-0.8); Basophils % 0.7; Eosinophils % 0.7; HGB 11.3 g/dL (13.5-17.5); Immature Grans % 0.2; Lymphocytes % 18.9; MCH 30.6 pg (27.0-33.0); MCHC 32.3 % (32.0-36.0); MCV 95 fL (80-95); Monocytes % 8.9; Neutrophils % 70.6; Platelet Count 164 10^3/uL (130-400); RBC 3.69 10^6/uL (4.36-5.78); RDW 12.5 % (11.8-14.1); RDW-SD 43.6 fL; WBC 4.03 10^3/uL (4.4-10.8)
[2023-03-14 07:02] LABS: Absolute Neutrophil Count 2.85 10^3/uL (1.2-6.7)
[2023-03-14 07:08] LABS: Anion Gap 10.4 mmol/L (3-11); BUN 19 mg/dL (7-18); CO2 25.6 mmol/L (21.0-32.0); CREATININE 1.1 mg/dL (0.70-1.30); Calcium 9.3 mg/dL (8.5-10.1); Chloride 108 mmol/L (98-107); Estimated GFR 68.29 (mL/min/1.73m2); Glucose 94 mg/dL (74-106); Potassium 4.3 mmol/L (3.5-5.1); Sodium 144 mmol/L (136-145)
[2023-03-14 07:28] VITALS: BP 128/61; PULSE 58; RESP 17; TEMP 36.6; O2SAT 98
[2023-03-14] MEDS: Finasteride 5 MG TAB PO (07:58)
[2023-03-14] MEDS: Tamsulosin 0.4 MG CAPCR PO (07:58)
[2023-03-14] MEDS: Ascorbic Acid 500 MG TAB PO (07:58)
[2023-03-14] MEDS: Multivitamin w/Minerals TAB 1 TAB PO (07:58)
--- NOTE | 2023-03-14 08:33 | DI.US_ITS ---
APPROVED REPORT EXAM: Comprehensive 2D, Doppler, and color-flow Echocardiogram Patient Location: In-Patient Room/Bed: 208 Syrup Maker: Ángela Garcia RDCS (AE) Indications: Near syncopal episodes, palpitation Other Information Study Quality: Fair. Technically limited study due to body habitus. Conclusion Normal left ventricular wall thickness and chamber size. Ejection fraction is 60%. Wall motion is n ormal Normal right ventricular size and systolic function Both atria are normal in size Aortic valve is mildly sclerotic and trileaflet with trivial regurgitation There is no additional structural or hemodynamically significant valvular disease Wall motion Left Ventricle The left ventricle is normal size. The left ventricular systolic function is normal. The left ventric ular ejection fraction is within the normal range. There is normal left ventricular wall thickness. T here is normal LV segmental wall motion. There is no ventricular septal defect visualized. LVEF is 60 %. Right Ventricle The right ventricle is normal size. The right ventricular systolic function is normal. Atria The left atrium size is normal. The right atrium size is normal. The interatrial septum is intact wit h no evidence for an atrial septal defect. Aortic Valve The aortic valve is mildly sclerotic Aortic valve is trileaflet. There is no aortic valvular stenosis . Trivial aortic regurgitation. Mitral Valve The mitral valve is normal in structure. No evidence of mitral valve stenosis. Trace mitral regurgita tion. Tricuspid Valve The tricuspid valve is normal in structure. There is no tricuspid valve stenosis. Trace tricuspid reg urgitation. Pulmonic Valve Pulmonic valve is not well visualized. There is no pulmonic valvular stenosis. There is no pulmonic v alvular regurgitation. Great Vessels The aortic root is normal in size. Ascending aorta is not well visualized. Aortic arch is not well vi sualized. The IVC was not visualized. Technically limited subcostal imaging. Pericardium There is no pericardial effusion. 2D Dimensions IVSD d PLAX 0.76 cm M: 0.6-1.2 Ao Root d 3.32 cm M: 3.1 - 3.7 LVPW d PLAX 0.78 cm M: 0.6 - 1.2 LVID d PLAX 4.59 cm M: 4.2 - 5.8 LVDs 3.11 cm M: 2.5 - 4.0 LV EF Teichholz 60.6 % FS 32.29 % LV EDV (Teich) 96.6 mL LV ESV (Teich) 38.1 mL Auto EF LV EDV A4C 100.2 mL LV EDV A2C 129.4 mL LV EDV BP 115.0 mL LV ESV A4C 40.2 mL LV ESV A2C 48.6 mL LV ESV BP 44.0 mL LVEF(%) A4C 59.9 % LVEF(%) A2C 62.4 % LVEF(%) BP 61.7 % LV SV A4C 60.0 ml LV SV A2C 80.8 ml LV SV BP 71.0 ml LV CO A4C 3.6 L/min LV CO A2C 4.9 L/min LV CO BP 4.3 L/min HR A4C 60.51 BPM HR A2C 60.59 BPM LV EDV Index (BP) LA Volume LA Length A4C 4.6 cm LA Length A2C 4.9 cm LA Area A4C s 15.29 cm2 LA Area A2C s 18.49 cm2 LA Vol A4C A-L 43.41 mL LA Vol A2C A-L 58.68 mL LA Vol Biplane A-L 52.5 mL LA Vol/BSA A4C A-L LA Vol/BSA A2C A-L LA Vol/BSA BP A-L 27.5 mL/m2 LA Vol A4C MOD 39.1 mL LA Vol A2C MOD 52.4 mL LA Vol BP MOD 46.9 mL RA Volume RA Area A4C 12.9 cm2 RA ESV A4C (A-L) 33.0mL RA Vol/BSA A4C A-L RA Length A4C 4.3 cm RA ESV A4C (MOD) 30.8mL LV Diastology MV E Vmax 0.68 (0.4-1.3 m/s) MV A Vmax 0.90 (0.4-1.3 m/s) E/A Ratio 0.8 Aortic Valve AoV Vmax 1.29 m/s LVOT Vmax 0.99 m/s AoV Peak Grad 6.6 mmHg LVOT Peak Grad 3.9 mmHg AoV Area (Vmax) 2.61 cm2 LVOT VTI 0.254 m AoV VTI 0.309 m LVOT Mean Grad 2.1 mmHg AoV Mean Julien. 0.87 m/s LVOT SV 86.16 mL AoV Mean Grad 3.5 mmHg LVOT Diam s 2.05 cm AoV Area (VTI) 2.79 cm2 Velocity Ratio 0.77 Mitral Valve MV DT 248 (160-240 msec) MV Vmax TIPS 0.90 m/s MV Mean Grad 1.2 (<2mmHg) MV VTI 0.280 m Pulmonary Valve RVOT Vmax 0.80 m/s RVOT Peak Gr. 2.5 mmHg RVOT VTI 0.204 m RVOT Mean Gr. 1.5 mmHg Tricuspid Valve TR Vmax 1.99 m/s TR Peak Grad 15.8 mmHg
--- NOTE | 2023-03-14 08:56 | PDOC.CMIN ---
Date of service: 03/14/23 Time of Service: 08:56 Care Management Initial Assmt Initial Assessment REASON FOR HOSPITALIZATION:: near syncope PREVIOUS FUNCTIONAL STATUS/SOCIAL/FAMILY SUPPORTS:: Willy lives alone in an apartment in [place], [place]. His in 2016 and he has no children. Dion has a niece, Patricia Helm, who is his HCA and also a good friend and source of support, as is her Dirk. Dion relocated to [place] from [place] in 2017 after his . 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 He is independent at baseline and does not receive any community services. He is active and continues to walk every day for exercise.. CURRENT FUNCTIONAL STATUS:: Dion was sitting up in bed when CM met with him. He was pleasant and engaged readily with CM in conversation. Dion talked about his life in [facility] and how different it is in [place]. Both the cost of living and the friendliness of the people are better in [place] he stated. dion had some questions about insurance and financial investments and plans to discuss these with staff from the [facility]. ADVANCE DIRECTIVES:: On file. Miladis Helm HCA Has patient been provided with info about the portal/API?: Yes Did the patient sign up for the portal?: Yes CODE STATUS:: DNR/DNI INSURANCE COVERAGE / FINANCIAL ISSUES:: Medicare [employer] Senior Supplement CURRENT HOME/COMMUNITY SERVICES/EQUIPMENT:: none PRIMARY CARE PHYSICIAN:: Kai Peter POTENTIAL DISCHARGE NEEDS:: follow up with PCP and plan of care PATIENT/FAMILY EDUCATION NEEDS:: Review of discharge instructions, limitations, medications, follow up plan, discuss Ask Me Three TRANSPORTATION:: via private vehicle PLAN:: Anticipate Dion will be discharged home with no new services. He will follow up with his PCP and plan of care and transport with family. CM will follow and support discharge needs. PFSH All Active Problems (Updated 03/13/23 @ 15:09 by Florence Lowery MD) Discharge planning issues (Acute) DVT prophylaxis (Acute) Near syncope (Acute) Palpitations (Acute) Light-headed feeling (Acute) Cellulitis (Acute) Impacted cerumen, right ear (Acute) BPH w urinary obs/LUTS (Chronic) Seasonal allergies (Acute) Obstructive sleep apnea (Chronic) Hyperlipidemia (Acute) Generalized anxiety disorder (Acute) Mild cognitive impairment (Acute) Hepatomegaly (Acute) Constipation (Chronic) Ambulatory dysfunction (Acute) Back pain (Acute) Abdominal pain (Acute) Anemia of chronic disease (Acute) Essential hypertension (Chronic) Constipation (Acute) PSVT (paroxysmal supraventricular tachycardia) (Acute) Neck pain (Acute) Medical History Acute confusion Acute kidney injury Ambulatory dysfunction Anemia Anemia, blood loss Arthritis Back pain BPH (benign prostatic hyperplasia) Closed head injury Clostridium difficile enterocolitis Conductive hearing loss COVID-19 Dehydration Dehydration Difficulty in urination Dysphagia Epidural abscess (~10/09/13) Erectile dysfunction Erythema multiforme Feeling of incomplete bladder emptying GERD (gastroesophageal reflux disease) Gram-positive cocci bacteremia History of Clostridioides difficile colitis (~10/2013) Ileus Impacted cerumen, bilateral Insomnia Knee pain Left inguinal hernia Lumbar discitis MSSA (methicillin susceptible Staphylococcus aureus) septicemia (10/09/13) in setting of ruputured appendicitis and found to have disciitis epidural abscess, [facility], [place], [place]; Dr. Casey Mixon, infectious disease MSSA bacteremia Multifocal pneumonia HILDA on CPAP Osteomyelitis of vertebra of thoracolumbar region (~10/09/13) treated w/ 6 weeks of Ancef; seen by Dr. Casey Mixon, infectious disease, [facility], [place], [place]; completed treatment 11/20/2013; complicated by C. difficile colitis Panic anxiety syndrome Rhabdomyolysis SBO (small bowel obstruction) Secondary bacterial pneumonia Sensorineural hearing loss Sepsis Sigmoid diverticulosis Suprapubic pressure Thyroid disease Toxic metabolic encephalopathy Transaminitis Urinary retention Vomiting Surgical History H/O sinus surgery History of bilateral cataract extraction History of cholecystectomy (~1998) History of tonsillectomy and adenoidectomy S/P laparoscopic appendectomy (10/09/13) S/P left inguinal hernia repair Family History Mother No problems noted. Father No problems noted. Social History Smoking/Tobacco Use Status: Former Tobacco Use tobacco type: pipe, cigars and e-cigarettes Second Hand Exposure: No Smoking risk assessment performed?: Yes Alcohol Intake: never Drug use: Never Substance use type: does not use Housing: apartment Communication Needs: None Do you need help understanding health information?: Never Pets and animals: No Sexually active: No Do you think of yourself as: straight/heterosexual Current gender identity: male What is your relationship status?: How often do you talk on the phone with friends or family?: decline to answer How often do you get together with friends or relatives?: once per week How often do you attend methodist or holiness services?: decline to answer Do you belong to any clubs or organized social groups?: no Panel score (0-1 are the most socially isolated patients): 0 What type of physical activity do you participate in: walking Alma/Buddhist: Holiness Special alma needs: No Seatbelt use: always Drive intox or ride w/intox driver sales: No Do you feel safe at home: Yes Do you feel safe in your relationship?: Yes
[2023-03-14 11:08] VITALS: BP 124/70; PULSE 55; RESP 17; TEMP 36.6; O2SAT 98
--- NOTE | 2023-03-14 14:23 | W.PM.DS.N ---
Date of service: 03/14/23 Time of Service: 14:23 DS: Diagnosis Discharge Diagnosis (1) Near syncope: Status: Acute (2) Palpitations: Status: Resolved (3) BPH w urinary obs/LUTS: Status: Chronic (4) Obstructive sleep apnea: Status: Chronic (5) Constipation: Status: Chronic Discharge Plan Disposition Patient Disposition: Home Condition: Stable Discharge Details Reason For Visit: Three Near-Syncopal Episodes Admit Date/Time: 03/13/23 11:45 Admit Provider: Florence Lowery Attending Provider: Florence Lowery [place] Care [place]: [place] [facility] Hospital Course: Mr Hanson is a 77 year old male with PMHx of pSVT, hypertension, constipation, BPH, chronic constipation, HILDA on CPAP, who was observed on [facility] hospitalist service from 03/13/23 until 03/14/23 after presenting with 2-3 near-syncopal episodes at home, which may or may not have been associated with a bowel movement (the patient is not sure), found to have hypotension by EMS which resolved with IV fluid bolus. The patient Was observed on telemetry without evidence of arrhythmic events. He was not orthostatic. He underwent an echocardiogram which did not have any concerning findings. He did have a CT of his chest/abdomen/pelvis done in the ED which revealed both constipation and a distended bladder. The patient passed a voiding trial here and we did increase his miralax to twice daily (though he refused to take it this morning). We discussed the possibility of his constipation affecting his blood pressures, and it is very likely that the events were vasovagal in nature. The patient is being discharged home today with a 30 day cardiac event recorder. He should follow up with his PCP in 1-2 weeks. Care for patient as well as completion of his discharge summary took 40 minutes on the day of discharge. Home Meds and New Rx's Prescriptions: Continued docusate sodium [Colace] 100 mg capsule 100 mg PO DAILY ascorbate calcium (vitamin C) 500 mg tablet 500 mg PO DAILY finasteride [Proscar] 5 mg tablet 5 mg PO DAILY Qty: 90 4RF levothyroxine [Synthroid] 25 mcg tablet 25 mcg PO DAILY Qty: 90 4RF lisinopril 2.5 mg tablet 2.5 mg PO DAILY Qty: 90 3RF mirtazapine 15 mg tablet 15 mg PO QHS Qty: 90 4RF simvastatin 10 mg tablet 10 mg PO DAILY Qty: 90 4RF tamsulosin 0.4 mg capsule 0.4 mg PO BID Qty: 180 4RF Centrum Silver Men 300-600-300 mcg Tablet 1 tab PO DAILY Changed polyethylene glycol 3350 [Miralax] 17 gram Powder In Packet 17 g PO BID Qty: 0 0RF No Action (DME) vacuum erection device system kit See Dose Instructions .ROUTE .MEDSUPPLY Qty: 1 0RF Dose Instruction: As directed Rx Instructions: As directed Discharge Instructions Instructions: Syncope (DC) Stand Alone Forms: Nursing Discharge Form Referrals: Kai Bonilla NP [Primary Care Provider] - (Voice message left for office to call you to make a follow up appointment. If you do not hear from then by the end of the day today (03/14/23) Please call them tomorrow to make a follow up for 1-2 weeks.) Activity:: Activity as Tolerated Equipment/Supplies:: cardiac event recorder Diet:: As Tolerated Discharge Orders Discharge Orders: Discharge Order (Routine); Ordered 03/14/23 Ordered By: Florence Lowery Other Ambulatory Orders: Cardiac Event Recorder (Routine) Timeframe: 1 Day Facility: [facility] - Location: Respiratory Therapy Ordered By: Florence Lowery DS: Summary Time Spent with Patient providing and/or coordinating discharge services: Greater than 30 minutes Status at Discharge Functional status at discharge: independent ambulation Overall status at discharge: patient is progressing back to baseline Mental Status: mental status grossly normal Speech and Movement: speech and movement normal Mood: congruent mood Affect: normal affect Exam Narrative Exam Narrative: General: Pleasant forgetful elderly male who is A&Ox3, NAD HEENT: EOMI, MMM Cardiovascular: RRR, no m/r/g Lungs: CTAB Gastrointestinal: Soft, notender, nondistended Extremities: no edema BLEs, 2+ pedal pulses B Psych Mental Status: mental status grossly normal Speech and Movement: speech and movement normal Mood: congruent mood Affect: normal affect DS: Data Vitals/I&O Vitals and I&O: Vital Signs Temperature 36.6 C 03/14/23 11:08 Temperature Source Tympanic 03/14/23 11:08 Pulse 55 L 03/14/23 11:08 Pulse Rhythm Regular 03/14/23 10:32 Pulse 67 03/13/23 13:26 Respiratory Rate 17 03/14/23 11:08 Respiratory Effort Normal, Non-Labored 03/14/23 10:32 Respiratory Depth Normal 03/14/23 10:32 Respiratory Pattern Normal 03/14/23 10:32 Blood Pressure 124/70 03/14/23 11:08 Blood Pressure Mean 89 03/13/23 13:31 Pulse Oximetry 98 03/14/23 11:08 Oxygen Delivery Method Room Air 03/14/23 11:08 Oxygen Flow Rate 0 03/14/23 11:08 Pain Level 0 03/14/23 11:08 Intake & Output 03/13/23 03/14/23 03/14/23 23:59 11:59 23:59 Intake Total 250 / 1770 240 / 450 210 / 450 Output Total 250 / 250 Balance 250 / 1770 -10 / 200 210 / 200 Intake: Oral 250 / 250 240 / 450 210 / 450 Output: Urine 250 / 250 Other: Urine Color Yellow Yellow Urine Appearance Clear Clear Urine Odor Normal None Comment pt voided 30 minutes prior to this Voiding Methods Toilet Data Completed and Pending Completed studies during hospitalization [Text1]: CTA chest/abdomen/pelvis: 1. No evidence of thoracic aortic dissection or pulmonary embolism. 2. No evidence of abdominal pelvic aneurysm or dissection. 3. Small infiltrate in the posterior aspect of the right upper lobe. 4. No acute abdominal or pelvic process. Echo: Normal left ventricular wall thickness and chamber size. Ejection fraction is 60%. Wall motion is normal Normal right ventricular size and systolic function Both atria are normal in size Aortic valve is mildly sclerotic and trileaflet with trivial regurgitation There is no additional structural or hemodynamically significant valvular disease Labs on day of discharge: Labs from last 24 hours 03/14/23 06:14 WBC 4.03 L RBC 3.69 L Hgb 11.3 L Hct 35.0 L MCV 95 MCH 30.6 MCHC 32.3 RDW 12.5 Plt Count 164 MPV 10.0 Immature Gran % 0.2 Neutrophils % 70.6 Lymphocytes % 18.9 Monocytes % 8.9 Eosinophils % 0.7 Basophils % 0.7 Nucleated RBC % 0.0 Absolute Neutrophils 2.85 Absolute Lymphocytes 0.76 L Absolute Monocytes 0.36 Absolute Eosinophils 0.03 Absolute Basophils 0.03 Sodium 144 Potassium 4.3 Chloride 108 H Carbon Dioxide 25.6 Anion Gap 10.4 BUN 19 H Creatinine 1.1 Est GFR (CKD-EPI 2020) 68.29 Glucose 94 Calcium 9.3 Magnesium 2.0 PFSH All Active Problems (Updated 03/14/23 @ 14:23 by Florence Lowery MD) Discharge planning issues (Acute) DVT prophylaxis (Acute) Near syncope (Acute) Light-headed feeling (Acute) Cellulitis (Acute) Impacted cerumen, right ear (Acute) BPH w urinary obs/LUTS (Chronic) Seasonal allergies (Acute) Obstructive sleep apnea (Chronic) Hyperlipidemia (Acute) Generalized anxiety disorder (Acute) Mild cognitive impairment (Acute) Hepatomegaly (Acute) Constipation (Chronic) Ambulatory dysfunction (Acute) Back pain (Acute) Abdominal pain (Acute) Anemia of chronic disease (Acute) Essential hypertension (Chronic) Constipation (Acute) PSVT (paroxysmal supraventricular tachycardia) (Acute) Neck pain (Acute) Medical History Acute confusion Acute kidney injury Ambulatory dysfunction Anemia Anemia, blood loss Arthritis Back pain BPH (benign prostatic hyperplasia) Closed head injury Clostridium difficile enterocolitis Conductive hearing loss COVID-19 Dehydration Dehydration Difficulty in urination Dysphagia Epidural abscess (~10/09/13) Erectile dysfunction Erythema multiforme Feeling of incomplete bladder emptying GERD (gastroesophageal reflux disease) Gram-positive cocci bacteremia History of Clostridioides difficile colitis (~10/2013) Ileus Impacted cerumen, bilateral Insomnia Knee pain Left inguinal hernia Lumbar discitis MSSA (methicillin susceptible Staphylococcus aureus) septicemia (10/09/13) in setting of ruputured appendicitis and found to have disciitis epidural abscess, [facility], [place], [place]; Dr. Casey Mixon, infectious disease MSSA bacteremia Multifocal pneumonia HILDA on CPAP Osteomyelitis of vertebra of thoracolumbar region (~10/09/13) treated w/ 6 weeks of Ancef; seen by Dr. Casey Mixon, infectious disease, [facility], [place], [place]; completed treatment 11/20/2013; complicated by C. difficile colitis Panic anxiety syndrome Rhabdomyolysis SBO (small bowel obstruction) Secondary bacterial pneumonia Sensorineural hearing loss Sepsis Sigmoid diverticulosis Suprapubic pressure Thyroid disease Toxic metabolic encephalopathy Transaminitis Urinary retention Vomiting Surgical History H/O sinus surgery History of bilateral cataract extraction History of cholecystectomy (~1998) History of tonsillectomy and adenoidectomy S/P laparoscopic appendectomy (10/09/13) S/P left inguinal hernia repair Family History Mother No problems noted. Father No problems noted. Social History Smoking/Tobacco Use Status: Former Tobacco Use tobacco type: pipe, cigars and e-cigarettes Second Hand Exposure: No Smoking risk assessment performed?: Yes Alcohol Intake: never Drug use: Never Substance use type: does not use Housing: apartment Communication Needs: None Do you need help understanding health information?: Never Pets and animals: No Sexually active: No Do you think of yourself as: straight/heterosexual Current gender identity: male What is your relationship status?: How often do you talk on the phone with friends or family?: decline to answer How often do you get together with friends or relatives?: once per week How often do you attend druze or gnosticist services?: decline to answer Do you belong to any clubs or organized social groups?: no Panel score (0-1 are the most socially isolated patients): 0 What type of physical activity do you participate in: walking Alma/Mandaeism: Zoroastrianism Special alma needs: No Seatbelt use: always Drive intox or ride w/intox dinkey driver: No Do you feel safe at home: Yes Do you feel safe in your relationship?: Yes Time Spent with Patient Time Spent with Patient: <45 minutes Time was spent: preparing to see the patient(eg.review tests), obtaining and/or reviewing separately otained hiistory, ordering medications,tests, procedures, referring, communicating with other health plant health care technician, indepentently interpreting results, counseling the patient and care coordination
[2023-03-14 14:58] VITALS: BP 138/67; PULSE 67; RESP 18; TEMP 37; O2SAT 98
--- NOTE | 2023-03-15 09:58 | PT.INNT ---
PT Notes Visit Reasons: Three Near-Syncopal Episodes Patient discharged to home on 03/14/2023 without services. No skilled services were provided for this epsiode of care.
== END 2023-03-14 15:51 | disposition home or self-care (01) ==
LOC: ER 11:29 → MS 14:42
PROVIDERS: Admitting Provider Internal Medicine; Emergency Provider Physician Assistant; PCP Nurse Practitioner Family; Visit Provider Internal Medicine
DX: R55 Syncope and collapse (principal); R00.2 Palpitations; N40.1 Benign prostatic hyperplasia with lower urinary tract symptoms; N13.8 Other obstructive and reflux uropathy; K59.00 Constipation, unspecified; G47.33 Obstructive sleep apnea (adult) (pediatric); I47.10 Supraventricular tachycardia, unspecified; I10 Essential (primary) hypertension; E53.1 Pyridoxine deficiency; E78.5 Hyperlipidemia, unspecified; F41.1 Generalized anxiety disorder; G31.84 Mild cognitive impairment of uncertain or unknown etiology; M54.9 Dorsalgia, unspecified; M54.2 Cervicalgia; R16.0 Hepatomegaly, not elsewhere classified; Z87.891 Personal history of nicotine dependence
CPT/HCPCS: 00123; 36415; 71275; 80048; 80053; 82550; 83690; 87635; 93005; 93270; 93306; 96360; 96361; 99285; 74174; 81003; 83735; 84443; 84484; 85025; 93010; 99223; 99239; G0378; J1644

== ENCOUNTER 2023-04-05 07:45 | Outpatient (CLI) | payer MEDICARE, SELFPAY ==
--- NOTE | 2023-04-05 09:13 | W.CARDEVENT ---
Date of service: 04/05/23 Time of Service: 09:13 Cardiac Event Recorder Referring Provider:: Kai Peter Indications:: Syncope Cardiac Event Note: This is a cardiac event monitor ordered for syncope. patient was monitored for 22 hours and 15 minutes Rhythm throughout was sinus. Average heart rate was 72. Minimum was 52 maximum 109 No significant dysrhythmias were recorded
== END 2023-04-05 07:46 | disposition home or self-care (01) ==
LOC: CARDOPNVT 07:45
PROVIDERS: PCP Nurse Practitioner Family; Visit Provider Internal Medicine Cardiovascular Disease
DX: R55 Syncope and collapse (principal)
CPT/HCPCS: 93272

== ENCOUNTER → 2023-04-09 10:11 | Outpatient (BNVA) | payer MEDICARE, SELFPAY | PROVIDERS: PCP Nurse Practitioner Family; Visit Provider Urology | DX: N13.8 Other obstructive and reflux uropathy (principal); N40.1 Benign prostatic hyperplasia with lower urinary tract symptoms | CPT/HCPCS: 99214 ==

== ENCOUNTER 2023-06-16 14:19 | Emergency (ER) | payer MEDICARE, SELFPAY ==
[2023-06-16] VITALS (25 sets, daily range): BP systolic 138–180; BP diastolic 48–60; PULSE 61–85; RESP 11–22; TEMP 36.5–37.2; O2SAT 96–99
--- NOTE | 2023-06-16 14:45 | RT.EKG_ITS ---
APPROVED REPORT Exam: Resting ECG Reason for Exam: dizziness Patient Location: E HR:64 bpm ECG Measurements Heart Rate 64 AXIS MI 173 P 68 QRSd 90 QRS 63 QT 385 T 48 QTc 398 Conclusion Sinus rhythm...normal P axis, V-rate 60- 99
--- NOTE | 2023-06-16 14:51 | ED.GENADUL_ITS ---
HPI General Mode of arrival: EMS . Date/Time Provider Initiated Documentation: 06/16/23 14:20 . Limitations to Documentation: no limitations . Information obtained by: patient . HPI Narrative: 78-year-old male with multiple medical problems including history of diverticulitis, constipation, anemia of chronic disease, hypertension, SVT, presents with chief complaint of abdominal discomfort. Patient notes chronic intermittent abdominal discomfort. He describes sensation of fullness in his lower abdomen and suprapubic area, more pronounced recently. He is concerned that he may have a flare of diverticulitis. He notes soft small stool with no blood and no melena. He also notes feeling lightheaded today which is why he called EMS. He states he suddenly felt dizzy and sat down and then felt better. Denies associated chest pain or shortness of breath. No focal weakness or numbness. Related Data Home Medications Medication Instructions Recorded Confirmed vacuum erection device system #1 ea 03/28/18 04/11/23 ascorbate calcium (vitamin C) 500 500 mg PO DAILY 03/09/22 06/16/23 mg tablet [id number] 300 mcg-K 60 1 tab PO DAILY 04/11/22 06/16/23 mcg-lycop 600 mcg-lutein 300 mcg tablet (Centrum Silver Men) polyethylene glycol 3350 17 gram 17 g PO BID #0 ea 03/14/23 06/16/23 oral powder packet (Miralax) finasteride 5 mg tablet (Proscar) 5 mg PO DAILY #90 tabs 05/28/23 06/16/23 lisinopril 2.5 mg tablet 2.5 mg PO DAILY #90 tabs 05/28/23 06/16/23 mirtazapine 15 mg tablet 15 mg PO QHS #90 tabs 05/28/23 06/16/23 simvastatin 10 mg tablet 10 mg PO DAILY #90 tabs 05/28/23 06/16/23 tamsulosin 0.4 mg capsule 0.4 mg PO BID #180 caps 05/28/23 06/16/23 levothyroxine 25 mcg tablet 25 mcg PO DAILY #90 tabs 06/10/23 06/16/23 (Synthroid) Previous Rx's Medication Instructions Recorded vacuum erection device system #1 ea 03/28/18 polyethylene glycol 3350 17 gram 17 g PO BID #0 ea 10/19/23 oral powder packet (Miralax) finasteride 5 mg tablet (Proscar) 5 mg PO DAILY #90 tabs 05/28/23 lisinopril 2.5 mg tablet 2.5 mg PO DAILY #90 tabs 05/28/23 mirtazapine 15 mg tablet 15 mg PO QHS #90 tabs 05/28/23 simvastatin 10 mg tablet 10 mg PO DAILY #90 tabs 05/28/23 tamsulosin 0.4 mg capsule 0.4 mg PO BID #180 caps 05/28/23 levothyroxine 25 mcg tablet 25 mcg PO DAILY #90 tabs 06/10/23 (Synthroid) Allergies Allergy/AdvReac Type Severity Reaction Status Date / Time Penicillins Allergy Mild Skin Rash Verified 06/16/23 14:26 cefazolin Allergy Skin Rash Verified 06/16/23 14:26 aspirin AdvReac Mild GI Bleeding Verified 06/16/23 14:26 General Stated Complaint: GenMedical ERICKA: 3 Review of Systems All systems reviewed & are unremarkable except as noted in HPI and below Constitutional Constitutional: Denies fever(s) Cardiovascular Cardiovascular: Reports as per HPI Exam Const General: cooperative and no acute distress HENMT Mouth: moist mucous membranes Eyes Conjunctivae: normal conjunctivae Sclera: normal sclerae Neck Neck: trachea midline and supple Resp Auscultation: clear to auscultation bilaterally, no rales, no rhonchi and no wheezes Cardio Rate: regular rate and not tachycardic Rhythm: regular rhythm GI Inspection: non-distended Palpation: soft, not firm, no guarding, no masses, not rigid, tender suprapubicly; with no rebound tenderness and No ascites Auscultation: hyperactive bowel sounds Skin General skin exam: no rashes or lesions noted Neuro General: patient alert, patient awake and tone normal Extrem General: no calf tenderness and no edema Psych Appearance: grossly normal Mental Status: mental status grossly normal Course Vital Signs Vital signs: Vital Signs Temperature 36.5 C 06/16/23 14:18 Pulse 72 06/16/23 14:18 Respiratory Rate 14 06/16/23 14:18 Blood Pressure 170/54 H 06/16/23 14:18 Pulse Oximetry 99 06/16/23 14:18 Temperature 36.5 C 06/16/23 14:28 Temperature Source Skin 06/16/23 14:28 Pulse 72 06/16/23 14:28 Respiratory Rate 16 06/16/23 14:29 Respiratory Effort Normal 06/16/23 14:29 Respiratory Depth Normal 06/16/23 14:29 Respiratory Pattern Normal 06/16/23 14:29 Blood Pressure 170/54 H 06/16/23 14:28 Pulse Oximetry 99 06/16/23 14:28 Oxygen Delivery Method Room Air 06/16/23 14:28 Oxygen Flow Rate 0 06/16/23 14:28 Pain Level 0 06/16/23 14:28 Medical Decision Making 1455 -- 78-year-old male with multimedical problem including prior history of diverticulitis, SVT, anemia of chronic disease, constipation, here with intermittent abdominal discomfort that has been experiencing chronically although more pronounced recently with an episode of lightheadedness today. Patient is hypertensive. He has tenderness in his lower abdomen and suprapubic area. He denies urinary symptoms. Consider acute life-threatening intra-abdominal surgical process including ruptured AAA versus diverticulitis versus other. Plan to obtain CT imaging. Regarding his lightheadedness, this may be secondary to discomfort versus arrhythmia versus anemia versus orthostasis. EKG was reviewed and interpreted by me: Please report, sinus rhythm 64 bpm, normal axis. Nondiagnostic. 1633 --CT of the abdomen pelvis was interpreted by radiology: No evidence of dissection or significant stenosis of the abdominal arteries. No abdominal aortic aneurysm. No acute intra-abdominal findings. Diverticulosis of the sigmoid colon with no diverticulitis. Labs reviewed and chronic anemia noted. Patient has been observed on court monitor without significant arrhythmia. Orthostatic vital signs reveal hypertension without orthostasis. Patient reassessed and remained stable. Continues to be neurologically intact. Patient ambulating without dysfunction. Plan for discharge with close outpatient follow-up with PCP. Patient was informed of his elevated blood pressure today. I recommended he take antihypertensive and to follow-up with PCP. Quality:SDOH Health Related Social Needs: No Data to Display PFSH All Active Problems (Updated 06/16/23 @ 16:35 by Pete Reeves MD) Abdominal pain (Acute) Lightheadedness (Acute) Elevated blood pressure reading (Acute) Hypotension (Acute) Near syncope (Acute) Light-headed feeling (Acute) Impacted cerumen, right ear (Acute) BPH w urinary obs/LUTS (Chronic) Seasonal allergies (Acute) Obstructive sleep apnea (Chronic) Hyperlipidemia (Acute) Generalized anxiety disorder (Acute) Mild cognitive impairment (Acute) Hepatomegaly (Acute) Constipation (Chronic) Ambulatory dysfunction (Acute) Back pain (Acute) Abdominal pain (Acute) Anemia of chronic disease (Acute) Essential hypertension (Chronic) Constipation (Acute) PSVT (paroxysmal supraventricular tachycardia) (Acute) Neck pain (Acute) Medical History Cellulitis Knee pain Impacted cerumen, bilateral Arthritis GERD (gastroesophageal reflux disease) Insomnia Thyroid disease Sigmoid diverticulosis HILDA on CPAP Transaminitis Closed head injury Dysphagia Rhabdomyolysis Secondary bacterial pneumonia Dehydration Acute kidney injury Multifocal pneumonia COVID-19 Feeling of incomplete bladder emptying Difficulty in urination Suprapubic pressure Anemia, blood loss Erythema multiforme Anemia Toxic metabolic encephalopathy Sepsis SBO (small bowel obstruction) Dehydration Ileus Acute confusion Clostridium difficile enterocolitis Vomiting Lumbar discitis MSSA bacteremia Urinary retention History of Clostridioides difficile colitis (~10/2013) 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 Casey Mixon, infectious disease, [place], [place]; completed treatment 11/20/2013; complicated by C. difficile colitis MSSA (methicillin susceptible Staphylococcus aureus) septicemia (10/09/13) in setting of ruputured appendicitis and found to have disciitis epidural abscess, [place], [place]; Dr. Casey Mixon, infectious disease BPH (benign prostatic hyperplasia) Conductive hearing loss Sensorineural hearing loss Panic anxiety syndrome Ambulatory dysfunction Back pain Gram-positive cocci bacteremia Left inguinal hernia Erectile dysfunction Surgical History H/O sinus surgery History of tonsillectomy and adenoidectomy History of bilateral cataract extraction History of cholecystectomy (~1998) S/P laparoscopic appendectomy (10/09/13) S/P left inguinal hernia repair Family History Mother No problems noted. Father No problems noted. Social History Smoking/Tobacco Use Status: Former Tobacco Use tobacco type: pipe, cigars and e-cigarettes Second Hand Exposure: No Smoking risk assessment performed?: Yes Alcohol Intake: never Drug use: Never Substance use type: does not use Housing: apartment Communication Needs: None Do you need help understanding health information?: Never Pets and animals: No Sexually active: No Do you think of yourself as: straight/heterosexual Current gender identity: male What is your relationship status?: How often do you talk on the phone with friends or family?: decline to answer How often do you get together with friends or relatives?: once per week How often do you attend mandaen or christian services?: decline to answer Do you belong to any clubs or organized social groups?: no Panel score (0-1 are the most socially isolated patients): 0 What type of physical activity do you participate in: walking [place]/Baptist: Pentecostalism Special alma needs: No Seatbelt use: always Drive intox or ride w/intox 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4 mg PO BID Qty: 180 4RF simvastatin 10 mg tablet 10 mg PO DAILY Qty: 90 4RF mirtazapine 15 mg tablet 15 mg PO QHS Qty: 90 4RF lisinopril 2.5 mg tablet 2.5 mg PO DAILY Qty: 90 3RF finasteride [Proscar] 5 mg tablet 5 mg PO DAILY Qty: 90 4RF levothyroxine [Synthroid] 25 mcg tablet 25 mcg PO DAILY Qty: 90 4RF Centrum Silver Men 300-600-300 mcg Tablet 1 tab PO DAILY polyethylene glycol 3350 [Miralax] 17 gram Powder In Packet 17 g PO BID Qty: 0 0RF Discharge Instructions Instructions: Fall Prevention for Older Adults (ED), Abdominal Pain (ED) Additional Instructions: CT imaging of your abdomen pelvis today did not show any acute intra-abdominal findings. There was note of diverticulosis of the sigmoid colon with no diverticulitis. Lab test today revealed chronic anemia. Your blood pressure was elevated today. Please continue to take your antihypertensive as prescribed and monitor your blood pressure at least 2-3 times per day. Keep a log of your blood pressure. Be sure to follow-up with your primary care physician tomorrow. Call for an appointment. Referrals: Kai Bonilla NP [Primary Care Provider] -
[2023-06-16 14:59] LABS: Abs Immature Grans 0.01 10^3/uL (0.0-0.06); Absolute Basophil Count 0.05 10^3/uL (0.0-0.2); Absolute Eosinophil Count 0.08 10^3/uL (0.0-0.7); Absolute Lymphocyte Count 0.77 10^3/uL (1.2-3.4); Absolute Monocyte Count 0.43 10^3/uL (0.1-0.8); Absolute Neutrophil Count 3.13 10^3/uL (1.2-6.7); Basophils % 1.1; Eosinophils % 1.8; HCT 34.7 % (40.0-50.0); HGB 11.4 g/dL (13.5-17.5); Immature Grans % 0.2; Lymphocytes % 17.2; MCHC 32.9 % (32.0-36.0); MCV 94 fL (80-95); MPV 9.4 fL (8.0-11.0); Monocytes % 9.6; Neutrophils % 70.1; Platelet Count 161 10^3/uL (130-400); RBC 3.68 10^6/uL (4.36-5.78); RDW 12.5 % (11.8-14.1); RDW-SD 43.5 fL; WBC 4.47 10^3/uL (4.4-10.8)
--- NOTE | 2023-06-16 15:15 | DI.CT_ITS ---
Exam(s) CT ABDOMEN PELVIS CTA EXAM: CT ABDOMEN PELVIS CTA CLINICAL HISTORY: abd pain, dizzy. TECHNIQUE: Imaging Protocol: Axial CT angiography was performed with multi-slice acquisition and m ulti-planar and/or 3D reconstructions. CONTRAST MATERIAL: Intravenous: Omnipaque 350 Contrast volume:structured data in ml Oral: / no COMPARISON: No exams were available for comparison FINDINGS: Vascular Structures: Celiac [place]/SMA: No evidence of stenosis. Renal Arteries: No evidence of stenosis. There is a single renal artery perfusing each kidney. Aorta: Mild atherosclerotic changes. No aneurysm. No dissection. No significant stenosis. Pelvis: Iliac Arteries: Mild atherosclerotic changes. No evidence of stenosis. Common Femoral Arteries: No evidence of stenosis. Soft Tissues:Unremarkable. Lung bases:Fibrotic changes. Liver: Normal density. No measurable mass. Gallbladder and biliary tract: Status post cholecystectomy. No radiodense calculus or dilation. Pancreas: Normal density, no abnormal calcifications or inflammatory process. Spleen: Normal. Kidneys: Normal size, contour and axis. No radiodense stones or obstructive uropathy. No masses seen. Adrenal glands: No masses seen. Bladder: Symmetric distention, no gross wall thickening. Bowel: No obstruction or bowel wall thickening. Diverticulosis. No evidence of diverticulitis. Peritoneal cavity: No ascites, collection or mesenteric inflammatory response. Bones: Nerve root sheath cysts in the sacrum. Facet degenerative changes in the spine. Mild scolios is. Lymph nodes: Within normal limits. Reproductive: Enlarged prostate. IMPRESSION: No significant atherosclerotic changes. No evidence of aneurysm or dissection.. No acute abnormalit y in the abdomen or pelvis. RADIATION DOSE DELIVERED: 634.25mGy.cm Total DLP DATA REPOSITORY: All CT scans at this facility are submitted to the National Radiology Data Registry (NRDR) Dose Index Registry (DIR) with the [employer] (ACR). RADIATION OPTIMIZATION: All CT scans at this facility use at least one of these dose optimization te chniques: automated exposure control; mA and/or kV adjustment per patient size (includes targeted exa ms where dose is matched to clinical indication); or iterative reconstruction.
[2023-06-16 15:18] LABS: ALT 24 U/L (16-63); AST 23 U/L (15-37); Albumin 3.3 g/dL (3.4-5.0); Alkaline Phosphatase 108 U/L (46-116); Anion Gap 5.2 mmol/L (3-11); BUN 24 mg/dL (7-18); Bilirubin, Total 0.8 mg/dL (0.2-1.0); CO2 31.8 mmol/L (21.0-32.0); CREATININE 1.3 mg/dL (0.70-1.30); Chloride 106 mmol/L (98-107); Estimated GFR 55.53 (mL/min/1.73m2); Glucose 120 mg/dL (74-106); Potassium 4.4 mmol/L (3.5-5.1); Sodium 143 mmol/L (136-145); Total Protein 6.8 g/dL (6.4-8.2); Troponin I < 50 ng/L (< or =60)
[2023-06-16 15:36] LABS: Bilirubin Negative (Negative); Blood Negative (Negative); Clarity Clear (Clear); Glucose Negative (Negative); Ketones Negative (Negative); Leukocyte Esterase Negative (Negative); Nitrite Negative (Negative); Urobilinogen 0.2 mg/dL (Up to 0.2); pH 7.5 (5-8)
[2023-06-16] MEDS: Normal Saline - Diluent 50 ML VIAL IJ (15:40)
[2023-06-16] MEDS: Omnipaque 350 MG/ML 100 ML BTL IJ (15:40)
--- NOTE | 2023-06-16 16:02 | DI.VRAD_ITS ---
PROCEDURE INFORMATION: Exam: CTA Abdomen and Pelvis With Contrast Exam date and time: 06/16/2023 3:43 PM Age: 78 years old Clinical indication: Other: Abd pain, dizzy TECHNIQUE: Imaging protocol: Computed tomographic angiography of the abdomen and pelvis with contrast. Exam focused on the arteries. 3D rendering (Not supervised by radiologist): MIP and/or 3D reconstructed images were created by the technologist. Contrast material: 350 OMNI; Contrast volume: 100 ml; Contrast route: INTRAVENOUS (IV); COMPARISON: CT THORAX ABD/PEL CTA 03/13/2023 9:01 AM FINDINGS: Lungs: There are fibrotic changes in both dependent lung bases. Aorta: There are tiny calcified atheromas in the infrarenal aorta but no significant stenosis. Celiac trunk and mesenteric arteries: There is a tiny atheroma at the origin of the celiac artery but no significant stenosis or occlusion. Renal arteries: No occlusion or significant stenosis. Right iliac arteries: Calcified atheromatous of the right internal iliac artery but no significant stenosis. Patent right external iliac artery with no significant stenosis. Left iliac arteries: No occlusion or significant stenosis. Liver: No mass. Gallbladder and bile ducts: Post cholecystectomy with no biliary dilatation. Pancreas: Unremarkable. No mass. No ductal dilation. Spleen: Unremarkable. No splenomegaly. Adrenal glands: Unremarkable. No mass. Kidneys and ureters: Unremarkable. No solid mass. No hydronephrosis. Stomach and bowel: There is diverticulosis of the sigmoid colon with no surrounding inflammatory changes to suggest diverticulitis. Appendix: No evidence of appendicitis. Intraperitoneal space: Unremarkable. No free air. No significant fluid collection. Lymph nodes: Unremarkable. No enlarged lymph nodes. Urinary bladder: Unremarkable. No mass. Reproductive: Prominent prostate. Bones/joints: There is mild curvature of the lumbar spine convex to the left. Moderate degenerative disease of bilateral sacroiliac joints. There is moderate degenerative disease of the lumbar spine with anterior osteophytes and multilevel facet joint arthropathy. There is moderate degenerative disease of both hip joints. Soft tissues: There are Tarlov cysts in the sacrum. Other findings: There are calcified atheromas of both common femoral arteries no significant stenosis. IMPRESSION: 1. No evidence of dissection or significant stenosis of the abdominal arteries. No abdominal aortic aneurysm. 2. No acute intra-abdominal findings. 3. Diverticulosis of the sigmoid colon with no diverticulitis. Dictated and Authenticated by: Ramses Reynoso MD. Ordering:STERLING Freeman MD
--- NOTE | 2023-06-16 17:14 | NUR.NOTE ---
Referral faxed to PCP for lightheadedness, elevated BP, this week. Nursing Note:
== END 2023-06-16 17:01 | disposition home or self-care (01) ==
LOC: ER 17:10
PROVIDERS: Emergency Provider Student in an Organized Health Care Education/Training Program; PCP Nurse Practitioner Family
DX: R42 Dizziness and giddiness (principal); R10.9 Unspecified abdominal pain; I10 Essential (primary) hypertension; F17.210 Nicotine dependence, cigarettes, uncomplicated; F17.290 Nicotine dependence, other tobacco product, uncomplicated
CPT/HCPCS: 36415; 80053; 93005; 99285; 74174; 81003; 83735; 84484; 85025; 93010; 99284; J3490

== ENCOUNTER 2023-09-23 16:41 | Outpatient (REF) | payer MEDICARE, SELFPAY ==
[2023-09-23 21:18] LABS: ALT 30 U/L (16-63); AST 24 U/L (15-37); Albumin 3.8 g/dL (3.4-5.0); Alkaline Phosphatase 91 U/L (46-116); Anion Gap 5.5 mmol/L (3-11); BUN 25 mg/dL (7-18); CO2 29.5 mmol/L (21.0-32.0); CREATININE 1.3 mg/dL (0.70-1.30); Calculated LDL 43 mg/dL (<100); Chloride 109 mmol/L (98-107); Cholesterol 142 mg/dL (<200); Estimated GFR 55.53 (mL/min/1.73m2); Glucose 106 mg/dL (74-106); HDL Cholesterol 89 mg/dL (40-60); Potassium 4.6 mmol/L (3.5-5.1); Sodium 144 mmol/L (136-145); TSH (W/Ref FT4) 2.56 uIU/mL (0.36-3.74); Total Protein 6.6 g/dL (6.4-8.2); Triglyceride 50 mg/dL (<150)
== END 2023-09-23 16:42 | disposition home or self-care (01) ==
LOC: LBN 16:41
PROVIDERS: PCP Nurse Practitioner Family; Visit Provider Nurse Practitioner Family
DX: E07.9 Disorder of thyroid, unspecified (principal); E78.5 Hyperlipidemia, unspecified
CPT/HCPCS: 80053; 80061; 84443

== ENCOUNTER 2023-09-30 13:22 | Emergency (ER) | payer MEDICARE, SELFPAY ==
[2023-09-30 13:28] VITALS: BP 152/54; PULSE 79; RESP 16; TEMP 37.2; O2SAT 95
--- NOTE | 2023-09-30 16:01 | ED.GENADUL_ITS ---
Discharge Plan Disposition Patient Disposition: Home Condition: Good Discharge Details Clinical Impression: Constipation Primary Care Provider: Kai Bonilla ED Provider: Raiza Rudd Home Meds and New Rx's Prescriptions: Continued (DME) vacuum erection device system kit See Dose Instructions .ROUTE .MEDSUPPLY Qty: 1 0RF Dose Instruction: As directed Rx Instructions: As directed ascorbate calcium (vitamin C) 500 mg tablet 500 mg PO DAILY tamsulosin 0.4 mg capsule 0.4 mg PO BID Qty: 180 4RF simvastatin 10 mg tablet 10 mg PO DAILY Qty: 90 4RF mirtazapine 15 mg tablet 15 mg PO QHS Qty: 90 4RF lisinopril 2.5 mg tablet 2.5 mg PO DAILY Qty: 90 3RF finasteride [Proscar] 5 mg tablet 5 mg PO DAILY Qty: 90 4RF levothyroxine [Synthroid] 25 mcg tablet 25 mcg PO DAILY Qty: 90 4RF Centrum Silver Men 300-600-300 mcg Tablet 1 tab PO DAILY polyethylene glycol 3350 [Miralax] 17 gram Powder In Packet 17 g PO BID Qty: 0 0RF Discharge Instructions Instructions: Constipation (ED) Additional Instructions: Please call [facility] first thing in the morning to schedule follow-up appointment to discuss your constipation management. I encourage you to continue using MiraLAX, you may use it twice a day until you have regular soft stools. Be sure to drink plenty of water and eat plenty of fiber. Metamucil may also be helpful. Return to emergency care if you develop new severe abdominal pain, uncontrollable vomiting, significant blood in your stool, or if you are very worried and need to be rechecked again immediately Referrals: Kai Bonilla, CA[employer] ROOM OPERATOR [Primary Care Provider] - [facility] General Date/Time Provider Initiated Documentation: 09/30/23 13:52 . HPI Narrative: Willy is an 78-year-old male with history of HTN, HLD, generalized anxiety disorder, thyroid dysfunction, BPH, and HILDA who presents to the emergency department today for evaluation of constipation. He reports that he takes MiraLAX daily for chronic constipation, says that he had a normal bowel movement yesterday. Today he is worried because he had firm stools like pellets, with a scant amount of blood on them. He denies fever/chills, dysphagia/difficulty swallowing (although he does say that sometimes he has to take a sip of water after eating to help it go down), nausea/vomiting, change in p.o. intake, abdominal pain, change in bladder function/dysuria, gait change/weakness in legs. He does admit that he feels like he has more difficulty urinating when he is constipated, says this has been an ongoing problem evaluated by urology. He does have a history of diverticulosis,, otherwise unremarkable colonoscopies. Related Data Home Medications Medication Instructions Recorded Confirmed vacuum erection device system #1 ea 03/28/18 09/23/23 ascorbate calcium (vitamin C) 500 500 mg PO DAILY 03/09/22 09/30/23 mg tablet [id number] 300 mcg-K 60 1 tab PO DAILY 04/11/22 09/30/23 mcg-lycop 600 mcg-lutein 300 mcg tablet (Centrum Silver Men) polyethylene glycol 3350 17 gram 17 g PO BID #0 ea 03/14/23 09/30/23 oral powder packet (Miralax) finasteride 5 mg tablet (Proscar) 5 mg PO DAILY #90 tabs 05/28/23 09/30/23 lisinopril 2.5 mg tablet 2.5 mg PO DAILY #90 tabs 05/28/23 09/30/23 mirtazapine 15 mg tablet 15 mg PO QHS #90 tabs 05/28/23 09/30/23 simvastatin 10 mg tablet 10 mg PO DAILY #90 tabs 05/28/23 09/30/23 tamsulosin 0.4 mg capsule 0.4 mg PO BID #180 caps 05/28/23 09/30/23 levothyroxine 25 mcg tablet 25 mcg PO DAILY #90 tabs 06/10/23 09/30/23 (Synthroid) Previous Rx's Medication Instructions Recorded vacuum erection device system #1 ea 03/28/18 polyethylene glycol 3350 17 gram 17 g PO BID #0 ea 03/14/23 oral powder packet (Miralax) finasteride 5 mg tablet (Proscar) 5 mg PO DAILY #90 tabs 05/28/23 lisinopril 2.5 mg tablet 2.5 mg PO DAILY #90 tabs 05/28/23 mirtazapine 15 mg tablet 15 mg PO QHS #90 tabs 05/28/23 simvastatin 10 mg tablet 10 mg PO DAILY #90 tabs 05/28/23 tamsulosin 0.4 mg capsule 0.4 mg PO BID #180 caps 05/28/23 levothyroxine 25 mcg tablet 25 mcg PO DAILY #90 tabs 06/10/23 (Synthroid) Allergies Allergy/AdvReac Type Severity Reaction Status Date / Time Penicillins Allergy Mild Skin Rash Verified 09/30/23 16:31 cefazolin Allergy Skin Rash Verified 09/30/23 16:31 aspirin AdvReac Mild GI Bleeding Verified 09/30/23 16:31 General Stated Complaint: Abd Prob ERICKA: 4 Review of Systems Narrative: see HPI Exam Const General: cooperative, healthy appearing, comfortable and no acute distress Resp Effort & Inspection: normal respiratory effort and able to speak in complete sentences Auscultation: clear to auscultation bilaterally Cardio Rate: regular rate Rhythm: regular rhythm GI Inspection: normal to inspection, no abdominal wall ecchymosis and non-distended Palpation: soft, not firm, no hernias, no masses, no pulsatile masses, not rigid and nontender Auscultation: hyperactive bowel sounds Rectal Exam: visual inspection normal, normal sphincter tone, No fecal impaction, heme positive stool, No hemorrhoids and No tenderness Course Vital Signs Vital signs: Vital Signs Temperature 37.2 C 09/30/23 13:28 Pulse 79 09/30/23 13:28 Respiratory Rate 16 09/30/23 13:28 Blood Pressure 152/54 H 09/30/23 13:28 Pulse Oximetry 95 09/30/23 13:28 Temperature 37.2 C 09/30/23 13:28 Temperature Source Tympanic 09/30/23 13:28 Pulse 79 09/30/23 13:28 Respiratory Rate 16 09/30/23 13:28 Blood Pressure 152/54 H 09/30/23 13:28 Blood Pressure Position Sitting 09/30/23 13:28 Pulse Oximetry 95 09/30/23 13:28 Oxygen Delivery Method Room Air 09/30/23 13:28 Oxygen Flow Rate 0 09/30/23 13:28 Medical Decision Making Willy is an 78-year-old male with history of HTN, HLD, generalized anxiety disorder, thyroid dysfunction, BPH, and HILDA who presents to the emergency department today for evaluation of constipation. He reports that he takes MiraLAX daily for chronic constipation, says that he had a normal bowel movement yesterday. Today he is worried because he had firm stools like pellets, with a scant amount of blood on them. He denies fever/chills, dysphagia/difficulty swallowing (although he does say that sometimes he has to take a sip of water after eating to help it go down), nausea/vomiting, change in p.o. intake, abdominal pain, change in bladder function/dysuria, gait change/weakness in legs. He does admit that he feels like he has more difficulty urinating when he is constipated, says this has been an ongoing problem evaluated by urology. He does have a history of diverticulosis,, otherwise unremarkable colonoscopies. Physical exam very reassuring. Willy is alert, in no acute distress. Abdomen is soft, nondistended, nontender to palpation with slightly hyperactive bowel sounds. Easy work of breathing, lung sounds clear bilaterally. No CVA tenderness. Normal heart sounds. Rectal exam performed with memory care program resident at bedside. Hemoccult positive, no grossly bloody stool. No fecal impaction noted DDx includes was not limited to constipation, partial bowel obstruction, diverticulitis, lower GI bleed, internal hemorrhoids I independently interpreted the following tests: CBC, UA, and CMP reassuring, only mild elevated total bili of 1.3 and mild hypomagnesemia (magnesium 1.7) noted. CT abdomen/pelvis reassuring, no acute abdominal findings. While in the emergency department Willy had 2 large soft bowel movements and was able to urinate without difficulty. He reports he feels 100% better and is ready to go home. History and presentation consistent with uncomplicated constipation. Advised patient to increase his fiber intake, use MiraLAX twice daily as needed until he has regular soft stools, and follow-up with PCP for management of constipation. Reviewed red flags indicate need for return to emergency care. He is agreeable with plan of care. Imaging Data Radiologic Study: Radiologist's impression: Exam(s) CT ABDOMEN PELVIS W EXAM: CT ABDOMEN PELVIS W CLINICAL HISTORY: constipation, blood in stool, increased gassiness TECHNIQUE: Imaging Protocol: Axial computed tomography images with coronal and sagittal reformatted images were created and reviewed. CONTRAST MATERIAL: Intravenous: Omnipaque 350 Contrast volume:100 mL Oral: No COMPARISON: CT CT THORAX ABD/PEL CTA from 03/13/[address] ABDOMEN PELVIS CTA from 06/16/2023 FINDINGS: The examination is limited due to patient motion artifact. ABDOMEN: Lung Bases: Normal where visualized. Liver: Normal density. No suspicious hepatic masses. Portal, Superior Mesenteric, and Splenic Veins: Unremarkable. Gallbladder and Biliary Tract: The gallbladder is not visualized. There is no biliary ductal dilatation. Pancreas: Normal density, no abnormal calcifications or inflammatory process. Spleen: Normal. Adrenals: No masses seen. Kidneys: Normal size, contour and axis. No radiodense stones or obstructive uropathy. Bilateral parapelvic cysts. No follow-up is recommended. Abdominal Aorta: Abdominal portion non-dilated. Atherosclerotic calcification is present. Bowel: The rectum is mildly distended with stool suggesting impaction. No bowel wall thickening is seen to suggest proctitis. There is diverticulosis of the colon without evidence of acute diverticulitis. There is no bowel wall thi ckening or evidence of obstruction. There is a small to moderate amount of stool in the rest of the colon. There is no evidence of appendicitis. Peritoneal Cavity: No ascites, collection or mesenteric inflammatory response. No free air. Lymph Nodes: Within normal limits. Bones: Within normal limits for the patient's age. Soft Tissues: Unremarkable. PELVIS: Bladder: Symmetric distention, no gross wall thickening. Reproductive Organs: The prostate gland is enlarged mildly. Lymph Nodes: Within normal limits. Bones: Within normal limits for the patient's age. IMPRESSION: 1. The rectum is mildly distended with stool suggesting impaction. There is no wall thickening to suggest proctitis. 2. Colonic diverticulosis without evidence of acute diverticulitis. 3. No evidence of pneumoperitoneum or ascites. 4. Examination is limited by patient motion artifact. 5. There is mild distention of the stomach and proximal duodenum. No mass or obstruction is seen in the distal duodenum. Quality:SDOH Health Related Social Needs: No Data to Display PFSH All Active Problems (Updated 09/30/23 @ 18:11 by Raiza Chilel) Thyroid disease (Acute) BPH w urinary obs/LUTS (Chronic) Seasonal allergies (Acute) Obstructive sleep apnea (Chronic) Hyperlipidemia (Acute) Generalized anxiety disorder (Acute) Mild cognitive impairment (Acute) Hepatomegaly (Acute) Constipation (Chronic) Ambulatory dysfunction (Acute) Back pain (Acute) Anemia of chronic disease (Acute) Essential hypertension (Chronic) Constipation (Acute) PSVT (paroxysmal supraventricular tachycardia) (Acute) Medical History (Updated 09/30/23 @ 18:11 by Raiza Chilel) Hypotension Near syncope Palpitations Light-headed feeling Impacted cerumen, right ear Abdominal pain Neck pain Cellulitis Knee pain Impacted cerumen, bilateral Arthritis GERD (gastroesophageal reflux disease) Insomnia Sigmoid diverticulosis HILDA on CPAP Transaminitis Closed head injury Dysphagia Rhabdomyolysis Secondary bacterial pneumonia Dehydration Acute kidney injury Multifocal pneumonia COVID-19 Feeling of incomplete bladder emptying Difficulty in urination Suprapubic pressure Anemia, blood loss Erythema multiforme Anemia Toxic metabolic encephalopathy Sepsis SBO (small bowel obstruction) Dehydration Ileus Acute confusion Clostridium difficile enterocolitis Vomiting Lumbar discitis MSSA bacteremia Urinary retention History of Clostridioides difficile colitis (~10/2013) 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 Casey Mixon, infectious disease, [place], [place]; completed treatment 11/20/2013; complicated by C. difficile colitis MSSA (methicillin susceptible Staphylococcus aureus) septicemia (10/09/13) in setting of ruputured appendicitis and found to have disciitis epidural abscess, [place], [place]; Dr. Casey Mixon, infectious disease BPH (benign prostatic hyperplasia) Conductive hearing loss Sensorineural hearing loss Panic anxiety syndrome Ambulatory dysfunction Back pain Gram-positive cocci bacteremia Left inguinal hernia Erectile dysfunction Surgical History H/O sinus surgery History of tonsillectomy and adenoidectomy History of bilateral cataract extraction History of cholecystectomy (~1998) S/P laparoscopic appendectomy (10/09/13) S/P left inguinal hernia repair Family History Mother No problems noted. Father No problems noted. Social History Smoking/Tobacco Use Status: Never Second Hand Exposure: No Smoking risk assessment performed?: Yes Alcohol Intake: never Drug use: Never Substance use type: does not use Housing: apartment Communication Needs: None Do you need help understanding health information?: Never Pets and animals: No Sexually active: No Do you think of yourself as: straight/heterosexual Current gender identity: male What is your relationship status?: How often do you talk on the phone with friends or family?: decline to answer How often do you get together with friends or relatives?: once per week How often do you attend gnosticist or roman catholic services?: decline to answer Do you belong to any clubs or organized social groups?: no Panel score (0-1 are the most socially isolated patients): 0 What type of physical activity do you participate in: walking Alma/Zoroastrian: Confucianist Special alma needs: No Seatbelt use: always Drive intox or ride w/intox 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
[2023-09-30 16:20] LABS: Bilirubin Negative (Negative); Blood Negative (Negative); Clarity Clear (Clear); Glucose Negative (Negative); Ketones Trace mg/dL (Negative); Leukocyte Esterase Negative (Negative); Nitrite Negative (Negative); Specific Gravity 1.025 (1.005-1.025); Urobilinogen 0.2 mg/dL (Up to 0.2)
[2023-09-30 16:30] VITALS: BP 152/54; PULSE 79; RESP 16; TEMP 37.2; O2SAT 95
[2023-09-30 16:31] LABS: Abs Immature Grans 0.02 10^3/uL (0.0-0.06); Absolute Basophil Count 0.04 10^3/uL (0.0-0.2); Absolute Eosinophil Count 0.01 10^3/uL (0.0-0.7); Absolute Monocyte Count 0.43 10^3/uL (0.1-0.8); Absolute Neutrophil Count 4.59 10^3/uL (1.2-6.7); Basophils % 0.7 %; Eosinophils % 0.2 %; HCT 35.5 % (40.0-50.0); HGB 11.4 g/dL (13.5-17.5); Immature Grans % 0.3 %; Lymphocytes % 13.6 %; MCH 31.5 pg (27.0-33.0); MCHC 32.1 % (32.0-36.0); MCV 98 fL (80-95); MPV 9.9 fL (8.0-11.0); Monocytes % 7.3 %; Neutrophils % 77.9 %; Platelet Count 147 10^3/uL (130-400); RBC 3.62 10^6/uL (4.36-5.78); RDW 12.7 % (11.8-14.1); RDW-SD 45.6 fL; WBC 5.89 10^3/uL (4.4-10.8)
[2023-09-30 16:45] LABS: ALT 30 U/L (16-63); AST 27 U/L (15-37); Alkaline Phosphatase 93 U/L (46-116); Anion Gap 7.7 mmol/L (3-11); BUN 20 mg/dL (7-18); Bilirubin, Total 1.3 mg/dL (0.2-1.0); CO2 28.3 mmol/L (21.0-32.0); CREATININE 1.2 mg/dL (0.70-1.30); Calcium 9.3 mg/dL (8.5-10.1); Chloride 108 mmol/L (98-107); Estimated GFR 61.13 (mL/min/1.73m2); Glucose 94 mg/dL (74-106); Lipase 56 U/L (16-77); Magnesium 1.7 mg/dL (1.8-2.4); Potassium 4.3 mmol/L (3.5-5.1); Sodium 144 mmol/L (136-145); Total Protein 7.1 g/dL (6.4-8.2)
[2023-09-30] MEDS: Normal Saline - Diluent 50 ML VIAL IJ (17:20)
[2023-09-30] MEDS: Omnipaque 350 MG/ML 100 ML BTL IJ (17:21)
--- NOTE | 2023-09-30 17:31 | DI.CT_ITS ---
Exam(s) CT ABDOMEN PELVIS W EXAM: CT ABDOMEN PELVIS W CLINICAL HISTORY: constipation, blood in stool, increased gassiness TECHNIQUE: Imaging Protocol: Axial computed tomography images with coronal and sagittal reformatted images were created and reviewed. CONTRAST MATERIAL: Intravenous: Omnipaque 350 Contrast volume:100 mL Oral: No COMPARISON: CT CT THORAX ABD/PEL CTA from 03/13/[address] ABDOMEN PELVIS CTA from 06/16/2023 FINDINGS: The examination is limited due to patient motion artifact. ABDOMEN: Lung Bases: Normal where visualized. Liver: Normal density. No suspicious hepatic masses. Portal, Superior Mesenteric, and Splenic Veins: Unremarkable. Gallbladder and Biliary Tract: The gallbladder is not visualized. There is no biliary ductal dilatat ion. Pancreas: Normal density, no abnormal calcifications or inflammatory process. Spleen: Normal. Adrenals: No masses seen. Kidneys: Normal size, contour and axis. No radiodense stones or obstructive uropathy. Bilateral parap elvic cysts. No follow-up is recommended. Abdominal Aorta: Abdominal portion non-dilated. Atherosclerotic calcification is present. Bowel: The rectum is mildly distended with stool suggesting impaction. No bowel wall thickening is s een to suggest proctitis. There is diverticulosis of the colon without evidence of acute diverticuli tis. There is no bowel wall thickening or evidence of obstruction. There is a small to moderate charu unt of stool in the rest of the colon. There is no evidence of appendicitis. Peritoneal Cavity: No ascites, collection or mesenteric inflammatory response. No free air. Lymph Nodes: Within normal limits. Bones: Within normal limits for the patient's age. Soft Tissues: Unremarkable. PELVIS: Bladder: Symmetric distention, no gross wall thickening. Reproductive Organs: The prostate gland is enlarged mildly. Lymph Nodes: Within normal limits. Bones: Within normal limits for the patient's age. IMPRESSION: 1. The rectum is mildly distended with stool suggesting impaction. There is no wall thickening to meyer ggest proctitis. 2. Colonic diverticulosis without evidence of acute diverticulitis. 3. No evidence of pneumoperitoneum or ascites. 4. Examination is limited by patient motion artifact. 5. There is mild distention of the stomach and proximal duodenum. No mass or obstruction is seen in the distal duodenum. RADIATION DOSE DELIVERED: 802.41mGy.cm Total DLP DATA REPOSITORY: All CT scans at this facility are submitted to the National Radiology Data Registry (NRDR) Dose Index Registry (DIR) with the [employer] (ACR). RADIATION OPTIMIZATION: All CT scans at this facility use at least one of these dose optimization te chniques: automated exposure control; mA and/or kV adjustment per patient size (includes targeted exa ms where dose is matched to clinical indication); or iterative reconstruction.
[2023-09-30 17:43] VITALS: BP 178/67; PULSE 85; RESP 18; O2SAT 98
--- NOTE | 2023-09-30 18:25 | DI.VRAD_ITS ---
PROCEDURE INFORMATION: Exam: CT Abdomen And Pelvis With Contrast Exam date and time: 09/30/2023 5:21 PM Age: 78 years old Clinical indication: Constipation and other: Increased gassiness, blood in stool; Patient HX: Constipation, blood in stool, increased gassiness; Additional info: H/o diverticulosis TECHNIQUE: Imaging protocol: Computed tomography of the abdomen and pelvis with contrast. COMPARISON: CT ABDOMEN PELVIS CTA 06/16/2023 3:43 PM FINDINGS: Liver: Normal. No mass. Gallbladder and bile ducts: Normal. No calcified stones. No ductal dilation. Pancreas: Normal. No ductal dilation. Spleen: Normal. No splenomegaly. Adrenal glands: Normal. No mass. Kidneys and ureters: Cysts noted at both kidneys. No hydronephrosis. No ureteral stones. Stomach and bowel: Wall thickening at the stomach suggestive of a nonspecific gastritis, versus artifact related to underdistention. Above average stool throughout the colon. Colonic diverticula present. No evidence of acute diverticulitis at this time. No evidence of intestinal perforation or obstruction. Appendix: No evidence of appendicitis. Intraperitoneal space: Unremarkable. No free air. No significant fluid collection. Vasculature: Aorta demonstrates mild atherosclerotic calcification. No abdominal aortic aneurysm. Lymph nodes: Unremarkable. No enlarged lymph nodes. Urinary bladder: Unremarkable as visualized. Reproductive: Hypertrophy of the prostate. Hypertrophy of the prostate. Bones/joints: Grade 1 anterolisthesis L5-S1 which appears degenerative in nature. No acute bony abnormality. Soft tissues: Unremarkable. IMPRESSION: 1. Wall thickening at the stomach suggestive of a nonspecific gastritis, versus artifact related to underdistention. 2. Above average stool throughout the colon. Dictated and Authenticated by: Byron Perry MD. Ordering:EMRE Eastman MD
--- NOTE | 2023-09-30 18:26 | NUR.NOTE ---
Referral faxed to PCP for constipation, in 2 to 3 weeks. Nursing Note:
== END 2023-09-30 18:28 | disposition home or self-care (01) ==
PROVIDERS: Emergency Provider Nurse Practitioner Family; PCP Nurse Practitioner Family
DX: K59.00 Constipation, unspecified (principal); K57.30 Diverticulosis of large intestine without perforation or abscess without bleeding; I10 Essential (primary) hypertension; R10.30 Lower abdominal pain, unspecified
CPT/HCPCS: 36415; 80053; 83690; 99285; 74177; 81003; 83735; 85025; 99283; J3490

== ENCOUNTER → 2023-10-08 08:12 | Outpatient (BNVA) | payer MEDICARE, SELFPAY | PROVIDERS: PCP Nurse Practitioner Family; Visit Provider Urology | DX: N13.8 Other obstructive and reflux uropathy (principal); K59.00 Constipation, unspecified; N40.1 Benign prostatic hyperplasia with lower urinary tract symptoms | CPT/HCPCS: 99214 ==

== ENCOUNTER → 2023-10-31 10:17 | Outpatient (BNVA) | payer MEDICARE, SELFPAY | PROVIDERS: PCP Nurse Practitioner Family; Referring Provider Nurse Practitioner Family; Visit Provider Surgery | DX: K44.9 Diaphragmatic hernia without obstruction or gangrene (principal); D64.9 Anemia, unspecified; K62.5 Hemorrhage of anus and rectum; K21.00 Gastro-esophageal reflux disease with esophagitis, without bleeding | CPT/HCPCS: 99214 ==

== ENCOUNTER → 2023-11-21 08:46 | Outpatient (BNVA) | payer MEDICARE, SELFPAY | PROVIDERS: PCP Nurse Practitioner Family; Referring Provider Nurse Practitioner Family; Visit Provider Surgery | DX: R13.10 Dysphagia, unspecified (principal); K21.00 Gastro-esophageal reflux disease with esophagitis, without bleeding | CPT/HCPCS: 99214 ==

== ENCOUNTER 2023-12-17 09:31 | Day surgery (SDC) | payer MEDICARE, SELFPAY ==
--- NOTE | 2023-12-16 21:22 | PDOC.DSDIS_ITS ---
Date of service: 12/17/23 Time of Service: 14:25 Discharge Plan Disposition Patient Disposition: Home Condition: Good Discharge Details Reason For Visit: stomach scope Attending Provider: Abena Mckeon Primary Care Provider: Kai Bonilla Home Meds and New Rx's Prescriptions: No Action pantoprazole [Protonix] 40 mg tablet,delayed release (DR/EC) 40 mg PO DAILY Qty: 90 12RF (DME) vacuum erection device system kit See Dose Instructions .ROUTE .MEDSUPPLY Qty: 1 0RF Dose Instruction: As directed Rx Instructions: As directed tamsulosin 0.4 mg capsule 0.4 mg PO BID Qty: 180 4RF simvastatin 10 mg tablet 10 mg PO DAILY Qty: 90 4RF mirtazapine 15 mg tablet 15 mg PO QHS Qty: 90 4RF lisinopril 2.5 mg tablet 2.5 mg PO DAILY Qty: 90 3RF finasteride [Proscar] 5 mg tablet 5 mg PO DAILY Qty: 90 4RF levothyroxine [Synthroid] 25 mcg tablet 25 mcg PO DAILY Qty: 90 4RF Centrum Silver Men 300-600-300 mcg Tablet 1 tab PO DAILY polyethylene glycol 3350 [Miralax] 17 gram Powder In Packet 17 g PO BID Qty: 0 0RF Discharge Instructions Additional Instructions: Post EGD Instruction ?You had anesthesia for your EGD/stomach scope today.? For your safety, please do the following for the next twenty-four (24) hours: Do Not operate a motor vehicle (car, truck, motorcycle, etc.) Do Not drink alcoholic beverages or use any recreational drugs for the first 24 hours or while taking pain medications. The medications in your body may have a reaction that can be dangerous. Do Not make any important decisions or sign any important papers You have just had a gastroscopy (EGD) or upper GI tract examination. It is important for your smooth recovery that you carefully follow the recommendations below. Do not hesitate to call if any questions should arise about your anesthesia, condition, or care. -Symptoms you may experience during the next 24 hours: ?1. Mild abdominal pain or excessive gas or a bloated feeling which improves with rest, liquids, eating? slightly, and walking as tolerated. 2. Drowsiness and/or forgetfulness because of the medications you were given. ?3. Throat numbness for about 1 hour. 4. A sore throat which you can treat with throat lozenges or by gargling with salt water 4-5 times a day. 5. Redness at the site of your IV which you can treat with warm compresses. SPECIAL INSTRUCTIONS: 1. You may resume your previous diet in one hour. We recommend a light meal to start, then progress as tolerated. 2. Restart regular medications in one hour. 3. No aspirin or non-steroidal containing medication for three days. 4. No lifting over 20 pounds or strenuous activity for the first 24 hours after your procedure. After 24 hours there are no restrictions on your activity, but you may feel fatigued for a few days. Findings: large hiatal hernia bile reflux gastritis -Medications: Protonix daily -Continue to follow lifestyle modifications: No alcohol, tobacco products, Aspirin or NSAID's (ibuprofen, Motrin, Naprosyn, aleve, etc).? Try to limit/avoid:? soda pop/any carbonated beverages, caffeine (including tea & chocolate), and acidic foods, (tomatoes, citrus, onions, peppermints) spicy or fried/fatty foods. Do not lie down for 30 minutes after eating, and do not eat 2 hours prior to bedtime. Avoid wearing tight fitting clothing/ belts. Follow up: -My office will send a letter with the results of your biopsy?s in 2-3wks time. Call the office at [phone] (Office) or [phone] (Hospital), or go to the ER right away if you notice any of the followin. Vomiting blood and /or ?coffee ground? material. ?2. Worsening of abdominal pain or cramping. ?3. Trouble with breathing, cough, and/or fever (temperature above 101.5 F). 4. Increasing pain with swallowing. ?5. Chest pain. 6. Any new symptoms. 7. Worsening of the redness at the IV site Stand Alone Forms: Miguel Victor (DSU) Activity:: see above Diet:: see above Discharge Orders Discharge Orders: Discharge Order (Routine); Ordered 12/17/23 Ordered By: Abena Mckeon DS: Diagnosis Discharge Diagnosis (1) Generalized anxiety disorder: Status: Acute (2) Essential hypertension: Status: Chronic (3) Hyperlipidemia: Status: Acute (4) Thyroid disease: Status: Acute (5) Seasonal allergies: Status: Acute (6) Hiatal hernia with GERD: Status: Acute Asessment and Plan: Patient is seen and examined after they are endoscopy.? Patient has minimal sore throat.? They have been able to tolerate liquids.? They do not have any nausea vomiting.? They are not having any chest pain or shortness of breath.? They have been able to pass gas and are not having any abdominal pain or distention.? They have not vomited any blood.? The vital signs have been stable-see nursing notes. We discussed findings on their endoscopy. We reviewed the importance of lifestyle modification-see discharge instructions We reviewed any new medications that the patient may be prescribed-see discharge instructions Patient will either be sent a letter with the biopsy results or follow-up in the office-see discharge instructions. Patient was given explicit instructions to follow-up regarding post endoscopy- refer to discharge Patient verbalized understanding and discharged in stable and satisfactory condition.? See nursing notes. (7) Hepatomegaly: Status: Acute (8) Diverticula of colon: Status: Acute (9) Constipation: Status: Acute (10) BPH w urinary obs/LUTS: Status: Chronic (11) Anemia of chronic disease: Status: Acute (12) Chronic anemia: Status: Acute (13) Mild cognitive impairment: Status: Acute (14) Obstructive sleep apnea: Status: Chronic (15) Bile reflux gastritis: Status: Acute
--- NOTE | 2023-12-16 21:25 | W.PM.ENDDOP ---
Date of service: 12/17/23 Time of Service: 12:30 Endoscopy Report DATE OF PROCEDURE: 12/17/23 PRE-OP DIAGNOSIS: chronic gerd POST-OP DIAGNOSIS: other (bile reflux gastritis/hiatal hernia ) SURGEON: Abena Mckeon ANESTHESIA TYPE: General:No Airway ESTIMATED BLOOD LOSS: 2 PATHOLOGY: other COMPLICATIONS: None DISPOSITION: same day PROCEDURE DESCRIPTION: After informed consent was obtained 9Risks: bleeding, infections, perforations {which could require surgery or antibiotics and prolonged hospital stay}, or ostomy, and complications of anaesthesia, [place] aspiration). The patient was take to the procedure room and placed in a supine position. Monitors were applied and a time out was done. The patients name, date of , procedure type, allergies to medications and metal in their body was reviewed. A bite block was placed and the patient was sedated. Once sedated and comfortable an Olympus gastroscope (see RN notes for scope #) was advanced through the oropharynx which was grossly normal, and passed into the esophagus. The proximal and mid-esophagus were normal. The distal esophagus does not show any: dilation/strictures/varices/erosions or ulcers/bleeding noted. Upon entering the stomach, there is a 100cc of bile noted; this is suctioned. The scope was advanced into the stomach and through the pylorus into the proximal jejunum. The duodenum was noted to be normal. Biopsies were done of the duodenal bulb.. The scope was retracted back into the stomach and biopsies were taken of the antrum. There is moderate gastritis in the distal third of the stomach. THere is no ulceration or bleeding. There were no /gastropathy/ ulcers/masses noted. The scope was retroflexed. The cardia and fundus were noted to be normal. There is a large hiatal hernia noted, approximately 5-6cm. There are no signs of ischemia. The scope was retracted back into the esophagus and biopsies were done of the GE junction (in all 4 quadrants) to rule out Delgado's. All specimens are retrieved and no bleeding was noted. The GE junction was at 40 cm. The scope was removed and the patient was woken up and taken back to [facility] in stable condition.
[2023-12-17 10:10] VITALS: BP 147/60; PULSE 64; RESP 16; TEMP 36.4; O2SAT 98
[2023-12-17] MEDS: Lactated Ringers 1,000 ML 80 ML IV (10:50)
--- NOTE | 2023-12-17 11:30 | ANES.PREOP_ITS ---
General Info Date of Service Date Performed: 12/17/23 Height: 5 ft 10 in Weight: 66.8 kg Body Mass Index (BMI): 21.1 Surgical Procedure: Operation Date: 12/17/23 12:05 Proposed Procedure Side Surgeon p Gastroscopy Abena Mckeon, Meds Allergies and Home Medications Allergies Allergy/AdvReac Type Severity Reaction Status Date / Time Penicillins Allergy Mild Skin Rash Verified 12/17/23 10:36 cefazolin Allergy Skin Rash Verified 12/17/23 10:36 aspirin AdvReac Mild GI Bleeding Verified 12/17/23 10:36 Home Medication ?Medication ?Instructions ?Recorded vacuum erection device system #1 ea 03/28/18 ajzdlnei-mg-vogku 300 mcg-K 60 1 tab PO DAILY 04/11/22 mcg-lycop 600 mcg-lutein 300 mcg tablet (Centrum Silver Men) polyethylene glycol 3350 17 gram 17 g PO BID #0 ea 03/14/23 oral powder packet (Miralax) finasteride 5 mg tablet (Proscar) 5 mg PO DAILY #90 tabs 05/28/23 lisinopril 2.5 mg tablet 2.5 mg PO DAILY #90 tabs 05/28/23 mirtazapine 15 mg tablet 15 mg PO QHS #90 tabs 05/28/23 simvastatin 10 mg tablet 10 mg PO DAILY #90 tabs 05/28/23 tamsulosin 0.4 mg capsule 0.4 mg PO BID #180 caps 05/28/23 levothyroxine 25 mcg tablet 25 mcg PO DAILY #90 tabs 06/10/23 (Synthroid) pantoprazole 40 mg tablet,delayed 40 mg PO DAILY #90 tabs 10/31/23 release (Protonix) Current Visit Medications: Current Medications Generic Name Dose Route Start Last Admin Trade Name Freq PRN Reason Stop Dose Admin Ringer's Solution 1,000 mls @ 80 mls/hr 12/17/23 06:00 12/17/23 10:50 IV 01/15/24 23:59 80 mls/hr INFUSION ALIZA Administration IV Miscellaneous Supplies 1 each 12/17/23 06:00 Iv Access IV 01/15/24 23:59 DIRECTED ALIZA Ondansetron HCl 4 mg 12/17/23 01:14 Ondansetron 4 Mg/2 Ml Vial IVP 08/22/24 01:13 Q4H PRN PRN Nausea / Vomiting Sodium Chloride 0 ml 12/17/23 06:00 Normal Saline Flush 10 Ml Syr IV 01/15/24 23:59 PRN PRN Sodium Chloride 0 ml 12/17/23 06:00 Normal Saline 10 Ml Vial IJ 01/15/24 23:59 DIRECTED PRN Sterile Water 0 ml 12/17/23 06:00 Water,Injection,Sterile 10 Ml Vial IJ 01/15/24 23:59 DIRECTED PRN PFSH Active Problems Active Problems: Problem Status Onset Code Gastroesophageal reflux disease with esophagitis without hemorrhage Acute K21.00 Chronic anemia Acute D64.9 Fe deficiency anemia Acute D50.9 Diverticula of colon Acute K57.30 Hiatal hernia with GERD Acute K21.9, K44.9 GERD (gastroesophageal reflux disease) Chronic K21.9 Thyroid disease Acute E07.9 BPH w urinary obs/LUTS Chronic N40.1, N13.8 Seasonal allergies Acute J30.2 Obstructive sleep apnea Chronic G47.33 Hyperlipidemia Acute E78.5 Generalized anxiety disorder Acute F41.1 Mild cognitive impairment Acute G31.84 Hepatomegaly Acute R16.0 Constipation Chronic K59.00 Ambulatory dysfunction Acute R26.2 Back pain Acute M54.9 Anemia of chronic disease Acute D63.8 Essential hypertension Chronic I10 Constipation Acute K59.00 PSVT (paroxysmal supraventricular tachycardia) Acute I47.1 Medical History Medical History Neck pain Impacted cerumen, right ear Light-headed feeling Palpitations Near syncope Hypotension Abdominal pain Cellulitis Knee pain Impacted cerumen, bilateral Arthritis GERD (gastroesophageal reflux disease) Insomnia Sigmoid diverticulosis HILDA on CPAP Transaminitis Closed head injury Dysphagia Rhabdomyolysis Secondary bacterial pneumonia Dehydration Acute kidney injury Multifocal pneumonia COVID-19 Feeling of incomplete bladder emptying Difficulty in urination Suprapubic pressure Anemia, blood loss Erythema multiforme Anemia Toxic metabolic encephalopathy Sepsis SBO (small bowel obstruction) Dehydration Ileus Acute confusion Clostridium difficile enterocolitis Vomiting Lumbar discitis MSSA bacteremia Urinary retention History of Clostridioides difficile colitis (~10/2013) 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 Casey Mixon, infectious disease, [place], [place]; completed treatment 11/20/2013; complicated by C. difficile colitis MSSA (methicillin susceptible Staphylococcus aureus) septicemia (10/09/13) in setting of ruputured appendicitis and found to have disciitis epidural abscess, [place], [place]; Dr. Casey Mixon, infectious disease BPH (benign prostatic hyperplasia) Conductive hearing loss Sensorineural hearing loss Panic anxiety syndrome Ambulatory dysfunction Back pain Gram-positive cocci bacteremia Left inguinal hernia Erectile dysfunction Surgical History Surgical History H/O sinus surgery History of tonsillectomy and adenoidectomy History of bilateral cataract extraction History of cholecystectomy (~1998) S/P laparoscopic appendectomy (10/09/13) S/P left inguinal hernia repair Tobacco Smoking/Tobacco Use Status: Former Tobacco Use Passive smoking exposure: Yes Second hand exposure: No Alcohol Alcohol Intake: former Year quit: 1975 Substance Use Substance use: Never Substance use type: does not use Vital Signs and Lab Results Vital Signs Most Recent Vital Signs in EMR: Most Recent Vital Signs Temp Pulse Resp BP Pulse Ox 36.4 C L 64 16 147/60 H 98 12/17/23 10:10 12/17/23 10:10 12/17/23 10:10 12/17/23 10:10 12/17/23 10:10 Lab Results Blood Type / Crossmatch: No Data to Display Complete Blood Count: No Data to Display Complete Metabolic Panel: No Data to Display Liver Function Panel: No Data to Display Coagulation Panel: No Data to Display Cardiac Panel: No Data to Display Arterial Blood Gas: No Data to Display Venous Blood Gas: No Data to Display Pancreas Panel: No Data to Display Thyroid Panel: No Data to Display Infectious Disease: No Data to Display Blood Cultures: No Data to Display Toxicology Panel: No Data to Display Imaging and Studies Imaging and Studies Study information below may be from another EMR and interpreted by another provider. Please see original notes in EMR for more complete details. EKG Summary: 12/15: sinus. Echocardiogram Summary: 08/2019: [id number]%, no sig valve lesions. Anesthesia Assessment and Plan Anesthesia History Personal History: No History of Anesthesia Complications Family History: No Family History of Anesthesia Complications Exercise Tolerance Exercise Tolerance: Metabolic Equivalents>4 Pertinent Negatives Pertinent Negatives: No Symptoms of GERD Cardiac & Pulmonary Exam Cardiac Exam: Normal S1/S2 Heart Sounds Pulmonary Exam: Clear Bilateral Breath Sounds Implantable Cardiac Device Does patient have a Pacemaker or an ICD?: No Airway Exam Known Difficult Airway: No Mallampati Class: 3 Mouth Opening: Narrow (< 3cm) Thyromental Distance: Less than 3 cm Neck Range of Motion: Limited ROM Neck Circumference: Normal Teeth Condition: Normal Dentition ASA Classification ASA Score: ASA 3 Emergency Case?: No NPO Status NPO Status: NPO Clears >2 hours, Solids >8 hours Anesthesia Plan Resuscitation Status: Full Code Anesthesia Technique: General Anesthesia Airway Planned: Natural Airway Monitors Used: Standard Monitors
[2023-12-17 11:31] VITALS: BMI 21.1
--- NOTE | 2023-12-17 12:26 | STOM_PTH ---
PATIENT: Willy Hanson LOC: [facility] U#:[id number] AGE/SX: 78/M ROOM: RE12/17/[address]: Abena Mckeon : 1945 BED: DIS: 12/17/2023 SPEC #: [id number] RECD: 12/17/23 17:34 STATUS: MARK TINOCO #: [id number] SUSU: 12/17/23 12:[address]: Abena Mckeon DEPT: Surgical Specimen RECD BY: Harleen Lorenzo ENTERED: 12/17/23 17:47 SP TYPE: STOMACH OTHR DR: Kai Champion, DIMITRI Tissues: 1 - BIOPSY BOWEL 2 - STOMACH BIOPSY 3 - STOMACH BIOPSY 4 - ESOPHAGUS BIOPSY Procedures: GROSS AND MICRO LEVEL 4 Comments: [id number]
[2023-12-17 12:36] VITALS: BP 112/52; PULSE 48; RESP 16; TEMP 36.5; O2SAT 99
[2023-12-17 13:17] VITALS: BP 159/71; PULSE 50; RESP 16; TEMP 36.2; O2SAT 94
--- NOTE | 2023-12-17 14:31 | W.ANESPOSTOP ---
Postoperative Evaluation Date, Time and Location Date Performed: 12/17/23 Time Performed: 14:31 Patient Location: Day Surgery Unit Vital Signs Most Recent Imported Vital Signs: Most Recent Vital Signs Temp Pulse Resp BP Pulse Ox 36.2 C L 50 L 16 159/71 H 94 12/17/23 13:17 12/17/23 13:17 12/17/23 13:17 12/17/23 13:17 12/17/23 13:17 Pain Score Most Recent Pain Score: Most Recent Pain Score Pain Level 0 12/17/23 12:36 Assessment Mental Status: Awake (Alert & Oriented to Patient Baseline) Airway and Respiratory Function: Patent airway with normal (patient baseline) respiratory exam Cardiovascular Function: Hemodynamically Stable Hydration Status: Adequately Hydrated Nausea & Vomiting: No Nausea or Vomiting Pain: Pt. Denies Any Pain Peripheral Nerve Block: Patient did not receive a nerve block
== END 2023-12-17 15:00 | disposition home or self-care (01) ==
LOC: SUR 09:32
PROVIDERS: PCP Nurse Practitioner Family; Visit Provider Surgery
PROC: 0DJ68ZZ Inspection of Stomach, Via Natural or Artificial Opening Endoscopic (ICD-10-PCS; CPT 43235; principal; 2023-12-17 12:00)
DX: K22.70 Barrett's esophagus without dysplasia (principal); G47.33 Obstructive sleep apnea (adult) (pediatric); I10 Essential (primary) hypertension; K44.9 Diaphragmatic hernia without obstruction or gangrene; K31.A0 Gastric intestinal metaplasia, unspecified; K31.89 Other diseases of stomach and duodenum
CPT/HCPCS: 43239; 88305; J2001; J2704

== ENCOUNTER 2024-02-15 11:26 | Inpatient (IN) | payer MEDICARE, SELFPAY ==
[2024-02-15] VITALS (47 sets, daily range): BP systolic 115–165; BP diastolic 36–76; PULSE 60–90; RESP 2–34; TEMP 36.6–39; O2SAT 90–98
--- NOTE | 2024-02-15 11:15 | RT.EKG_ITS ---
APPROVED REPORT Exam: Resting ECG Reason for Exam: fall Patient Location: E HR:81 bpm ECG Measurements Heart Rate 81 AXIS IN 151 P 70 QRSd 92 QRS 68 QT 360 T 14 QTc 418 Conclusion Sinus rhythm...normal P axis, V-rate 60- 99 Probable left atrial enlargement...P >50mS, <-0.10mV V1 Narrow complex normal sinus rhythm at a rate of 81. Normal axis. Intervals within normal limits. T wave inversion in lead III. No ST segment abnormalities. No acute injury pattern. Compared to rusty or dated earlier this year T wave version lead III is new. T wave flattening in aVL has resolved.
--- NOTE | 2024-02-15 11:27 | W.ED.GENAD ---
Discharge Plan Disposition Patient Disposition: Admit to [facility] Condition: Stable Discharge Details Clinical Impression: Rhabdomyolysis, Pneumonia Primary Care Provider: Kai Bonilla ED Provider: Walekr Wagoner Home Meds and New Rx's Prescriptions: No Action pantoprazole [Protonix] 40 mg tablet,delayed release (DR/EC) 40 mg PO DAILY Qty: 90 12RF (DME) vacuum erection device system kit See Dose Instructions .ROUTE .MEDSUPPLY Qty: 1 0RF Dose Instruction: As directed Rx Instructions: As directed tamsulosin 0.4 mg capsule 0.4 mg PO BID Qty: 180 4RF simvastatin 10 mg tablet 10 mg PO DAILY Qty: 90 4RF mirtazapine 15 mg tablet 15 mg PO QHS Qty: 90 4RF lisinopril 2.5 mg tablet 2.5 mg PO DAILY Qty: 90 3RF finasteride [Proscar] 5 mg tablet 5 mg PO DAILY Qty: 90 4RF levothyroxine [Synthroid] 25 mcg tablet 25 mcg PO DAILY Qty: 90 4RF Centrum Silver Men 300-600-300 mcg Tablet 1 tab PO DAILY polyethylene glycol 3350 [Miralax] 17 gram Powder In Packet 17 g PO BID Qty: 0 0RF HPI General Date/Time Provider Initiated Documentation: 02/15/24 11:28. HPI Narrative: 78 year-old male presents to ED today by EMS with a chief complaint of multiple falls lately, yesterday and today without trauma, states he hasn't been acting himself, urged to come in by friend and PCP, last known well at least yesterday morning. Quality described as no focal pain, just feels off, cant definitively state any numbness or tingling or weakness, no radiation to cough, fever, abdominal pain, nausea/vomiting, black/bloody stools, syncope, chest pain. Severity is described as mild to moderate. Palliating factors include nothing specific attempted. Provoking factors include nothing specific. Patient not anticoagulated. Related Data Home Medications ?Medication ?Instructions ?Recorded ?Confirmed vacuum erection device system #1 ea 03/28/18 02/15/24 [id number]-tb-[id number] 300 mcg-K 60 1 tab PO DAILY 04/11/22 02/15/24 mcg-lycop 600 mcg-lutein 300 mcg tablet (Centrum Silver Men) polyethylene glycol 3350 17 gram 17 g PO BID #0 ea 03/14/23 02/15/24 oral powder packet (Miralax) finasteride 5 mg tablet (Proscar) 5 mg PO DAILY #90 tabs 05/28/23 02/15/24 lisinopril 2.5 mg tablet 2.5 mg PO DAILY #90 tabs 05/28/23 02/15/24 mirtazapine 15 mg tablet 15 mg PO QHS #90 tabs 05/28/23 02/15/24 simvastatin 10 mg tablet 10 mg PO DAILY #90 tabs 05/28/23 02/15/24 tamsulosin 0.4 mg capsule 0.4 mg PO BID #180 caps 05/28/23 02/15/24 levothyroxine 25 mcg tablet 25 mcg PO DAILY #90 tabs 06/10/23 02/15/24 (Synthroid) pantoprazole 40 mg tablet,delayed 40 mg PO DAILY #90 tabs 10/31/23 02/15/24 release (Protonix) Previous Rx's ?Medication ?Instructions ?Recorded vacuum erection device system #1 ea 03/28/18 polyethylene glycol 3350 17 gram 17 g PO BID #0 ea 03/14/23 oral powder packet (Miralax) finasteride 5 mg tablet (Proscar) 5 mg PO DAILY #90 tabs 05/28/23 lisinopril 2.5 mg tablet 2.5 mg PO DAILY #90 tabs 05/28/23 mirtazapine 15 mg tablet 15 mg PO QHS #90 tabs 05/28/23 simvastatin 10 mg tablet 10 mg PO DAILY #90 tabs 05/28/23 tamsulosin 0.4 mg capsule 0.4 mg PO BID #180 caps 05/28/23 levothyroxine 25 mcg tablet 25 mcg PO DAILY #90 tabs 06/10/23 (Synthroid) pantoprazole 40 mg tablet,delayed 40 mg PO DAILY #90 tabs 10/31/23 release (Protonix) Allergies Allergy/AdvReac Type Severity Reaction Status Date / Time Penicillins Allergy Mild Skin Rash Verified 02/15/24 11:24 cefazolin Allergy Skin Rash Verified 02/15/24 11:24 aspirin AdvReac Mild GI Bleeding Verified 02/15/24 11:24 General Stated Complaint: GenMedical ERICKA: 3 Review of Systems All systems reviewed & are unremarkable except as noted in HPI and below Exam Narrative Exam Narrative: GENERAL APPEARANCE: Frail, non-toxic, awake and alert, atraumatic, no acute distress. SKIN: Warm, pale, dry, intact, without rashes/lesions/ulcerations. HEAD: Normocephalic, atraumatic, normal hair distribution for gender/age. EYES: Normal conjunctiva, no exudates on lids/lashes, pupils PERRLA, EOMs intact, visual givens intact. ENT: Nares patent, no circumoral cyanosis, no facial swelling NECK: Supple, trachea midline, painless cervical ROM. LUNGS/CHEST: Lungs CTA bilaterally - no rhonchi/rales/wheezes diffusely, slight diminishment at L base, non-labored respirations, normal A/P diameter, symmetrical expansion, no chest wall deformity HEART (CV/PV): Regular rate and rhythm without murmur, no peripheral edema, no JVD. ABDOMEN: Soft, non-distended, no guarding, no overt tenderness, negative Malin's sign, no Rovsing's, no McBurney's point tenderness. MSK: Normal ROM, no swelling/deformity to bilateral UEs or LEs, moving all extremities without weakness, no cyanosis, spine midline without tenderness, normal curvature. NEURO: Mental Status AAOx4 - alert to person, place, time, events No facial droop, no forehead involvement, does have difficulty following commands of dysmetria testing but no overt dysmetria with the scant participation I did get with FNF/heel-culver Motor: No focal weakness - strength 5/5 in bilateral UEs and LEs, proximal and distal, symmetric. Sensory: sensation intact to light touch globally. Gait normal: patient ambulated without ataxia into ED room, transferred without issue from EMS stretcher PSYCH: euthymic, cooperative, pleasant, tangential speech Course Vital Signs Vital signs: Vital Signs Temperature 36.6 C 02/15/24 11:21 Pulse 89 02/15/24 11:21 Respiratory Rate 16 02/15/24 11:21 Blood Pressure 165/47 H 02/15/24 11:21 Pulse Oximetry 96 02/15/24 11:21 Temperature 36.6 C 02/15/24 11:21 Pulse 89 02/15/24 11:21 Respiratory Rate 16 02/15/24 11:21 Respiratory Effort Normal 02/15/24 11:25 Blood Pressure 165/47 H 02/15/24 11:21 Pulse Oximetry 96 02/15/24 11:21 Medical Decision Making This dictation utilizes [id number] dictation software and may contain unedited grammatical errors. 78 year-old male presents to ED today by EMS with a chief complaint of multiple falls lately, yesterday and today without trauma, states he hasn't been acting himself, urged to come in by friend and PCP, last known well at least yesterday morning. Quality described as no focal pain, just feels off, cant definitively state any numbness or tingling or weakness, no radiation to cough, fever, abdominal pain, nausea/vomiting, black/bloody stools, syncope, chest pain. Severity is described as mild to moderate. Palliating factors include nothing specific attempted. Provoking factors include nothing specific. Patients' medical history: Hypertension, palpitations, HILDA on CPAP, history of closed head injury, history of rhabdomyolysis, history of multifocal pneumonia, urinary incontinence, SBO with ileus, urinary retention, anemia, cognitive impairment-surgical history of sinus surgery, tonsillectomy, cholecystectomy, appendectomy, left inguinal hernia repair. Family and social history: Lives independently, denies recent travel. Pertinent exam findings / vital signs include 1 cm skin tear to right elbow with ecchymosis, left patellar ecchymosis without crepitus or instability, neurovascularly intact in all 4 extremities, benign cardiopulmonary status without labored respiration, has some diminished lung sounds in the left lower lobe, no rhonchi diffusely, no focal neurofindings but has some difficulty following commands, smells of urine, otherwise talkative and comfortable without hemodynamic instability. Differential / pathologies of concern include encephalopathy, infection/sepsis, UTI, intoxication, pneumonia, obstructive biliary pathology, dehydration, electrolyte abnormality, less likely CVA. Diagnostic studies of: -CBC, CMP, CK, magnesium, TSH, urinalysis, ammonia, alcohol level, troponin, CTA brain and neck, lactate, procalcitonin, UDS, conjugated bilirubin level, Tick & Lyme panel, XR R elbow, XR L knee, CT ABD/pelvis W contrast, XR chest, EKG. -CBC shows no leukocytosis, shows chronic stable anemia, chronic thrombocytopenia -Lactate negative, procalcitonin 5.3, unclear etiology at this point -TSH within normal limits -Lipase negative -LFTs show total bilirubin of 3.7 with elevated conjugated bilirubin of 1.1 and an obstructive pattern -AST elevated greater than ALT 142: 100 -Ammonia negative -Alcohol level negative -CMP shows elevated creatinine to 1.5 with elevated BUN likely prerenal dehydration -Magnesium 1.6 will give 1 g IV -UA shows small blood and trace ketones consistent with possible dehydration -UDS negative -Tick panel pending -Troponin negative, 27 -CK is significantly elevated at 2627 consistent with rhabdomyolysis -EKG shows sinus rhythm at 81 bpm with normal axis, normal intervals with a narrow complex QRS, poor R wave progression, no ST changes of ischemia -CTA of the head and neck shows no acute findings besides mild diffuse cortical atrophy, some right maxillary and bilateral ethmoid questionable sinusitis findings, CT neck incidentally did catch groundglass infiltrate in posterior segment of right upper lobe of lung -CT ABD/pelvis W contrast shows possible findings for gastritis, hepatic cysts consistent with priors, no CBD dilatation, shows left lower lobe pneumonia -XR R elbow shows no acute fracture -XR L knee shows no acute fracture -XR Chest shows left lower and right upper lobe pneumonia Interventions of: -Steri strip to R elbow skin tear, 2L IVF NS, 1gm IV magnesium -Consult Hospitalist Dr. Benitez, accepts for admission for rhabdomyolysis, multilobar pneumonia @ 1505. -IV Levofloxacin added w/ blood cultures, added legionella PCR and strep PCR ED Course/Assessment/Plan: 78-year-old male presents with altered mental status since at least yesterday morning with multiple falls, per his Saturday PCP has been speaking tangentially, has no focal deficits on neuroexam, had some difficulty following commands, has extensive history of mild cognitive impairment, history of rhabdomyolysis, his workup is negative for signs of sepsis or UTI, he does have some elevated bilirubin and LFTs without findings on CT abdomen pelvis, CTA of the head and neck is negative for any acute ischemic infarct or hemorrhage, he has bruise to the right elbow without fracture, bruise to left knee without fracture, x-ray chest shows multilobar pneumonia, CPK is elevated to 2600 consistent with rhabdomyolysis, any was treated for mild hypomagnesemia here in the emergency department I did present him for admission to hospitalist service. Findings not consistent with hypoxic respiratory failure, sepsis, biliary obstructive pathology, CVA/TIA, UTI. Disposition of Rhabdomyolysis, Pneumonia. Patient verbalized understanding of the plan and return to ED criteria and engaged in shared decision making. Medical Records Medical records reviewed: Yes I reviewed the patient's medical records. Imaging Data Radiologic Study: Attestation: I personally reviewed and interpreted this imaging study as follows: Imaging: CT Scan Radiologist's impression: Exam: CTA Head Without And With Contrast, Arteriography Exam date and time: 02/15/2024 12:08 PM Age: 78 years old Clinical indication: Other: Falls, AMS yesterday? ? Encephalopathic vs focal TECHNIQUE: Imaging protocol: Computed tomographic angiography of the head without and with contrast. Exam focused on the arteries. 3D rendering (Not supervised by radiologist): MIP and/or 3D reconstructed images were created by the technologist. Radiation optimization: All CT scans at this facility use at least one of these dose optimization techniques: automated exposure control; mA and/or kV adjustment per patient size (includes targeted exams where dose is matched to clinical indication); or iterative reconstruction. Contrast material: OMNI 350; Contrast volume: 70 ml; Contrast route: INTRAVENOUS (IV); COMPARISON: CT HEAD WO 02/18/2023 10:19 AM FINDINGS: ANTERIOR CIRCULATION: Right internal carotid artery: The internal carotid artery is patent through the carotid siphon. No significant stenosis. Right middle cerebral artery: The right middle cerebral artery shows no significant stenosis, aneurysm or AV malformation. Right anterior cerebral artery: The A1 segment is patent. There is a patent anterior communicating artery. The anterior cerebral artery is unremarkable beyond the anterior communicating artery. Left internal carotid artery: The left internal carotid artery is patent through the carotid siphon without significant disease. Left middle cerebral artery: The left middle cerebral artery shows no focal lesion. No occlusion aneurysm or significant stenosis. Left anterior cerebral artery: The left A1 segment is patent. The anterior cerebral artery is unremarkable beyond the anterior communicating artery. POSTERIOR CIRCULATION: Right vertebral artery: The distal intradural right vertebral artery is patent. No focal lesion. Left vertebral artery: The distal intradural left vertebral artery is patent. No focal lesion. Basilar artery: The basilar artery shows no stenosis or aneurysm. Right posterior cerebral artery: The right posterior communicating artery is not visualized. The right posterior cerebral artery shows no acute focal lesion. Left posterior cerebral artery: The left posterior communicating artery is not visualized. The left posterior cerebral artery shows no acute focal lesion. Venous sinuses: No filling defects in the superior sagittal sinus, straight sinus, transverse sinus or sigmoid sinuses. HEAD: Brain: There is mild diffuse cortical atrophy. No acute infarct or hemorrhage identified. There is no midline shift or mass lesion. Posterior fossa: No acute focal lesion of the brainstem or cerebellum. CSF spaces: There are no subdural or epidural hematomas. There is no subarachnoid hemorrhage. Orbits: The globes and retro-orbital soft tissues are unremarkable Cerebral ventricles: The ventricles are mildly dilated but appropriate to the degree of atrophy. Bones: No calvarial fracture identified. Paranasal sinuses: There is minimal mucoperiosteal thickening of the right maxillary sinus and ethmoid air cells. Mastoid air cells: The mastoid air cells are clear. Soft tissues: No scalp hematoma. IMPRESSION: 1. Normal [place] without occlusion, aneurysm or AV malformation. 2. Normal venous sinuses. 3. Mild diffuse cortical atrophy without current acute infarct hemorrhage or mass lesion. 4. Minimal mucoperiosteal thickening of the right maxillary and bilateral ethmoid air cells. PROCEDURE INFORMATION: Exam: CTA Neck Without And With Contrast Exam date and time: 02/15/2024 12:08 PM Age: 78 years old Clinical indication: Other: Falls, AMS yesterday? ? Encephalopathic vs focal TECHNIQUE: Imaging protocol: Computed tomographic angiography of the neck without and with contrast. Exam focused on the cervical segments of the vasculature. 3D rendering (Not supervised by radiologist): MIP and/or 3D reconstructed images were created by the technologist. Radiation optimization: All CT scans at this facility use at least one of these dose optimization techniques: automated exposure control; mA and/or kV adjustment per patient size (includes targeted exams where dose is matched to clinical indication); or iterative reconstruction. Contrast material: OMNI 350; Contrast volume: 70 ml; Contrast route: INTRAVENOUS (IV); COMPARISON: CT HEAD NECK WO 12/12/2021 4:57 PM FINDINGS: Right common carotid artery: The origin of the right common carotid artery is normal. There are no stenoses along its course. Right internal carotid artery: There is minimal atherosclerotic change at the origin of the internal carotid artery without stenosis Right external carotid artery: The external carotid artery is unremarkable Left common carotid artery: The origin of the left common carotid artery from the aortic arch is normal. No stenoses along its course. Left internal carotid artery: There is mild calcification at the origin of the internal carotid artery without hemodynamically significant stenosis. Left external carotid artery: No stenosis at the origin of the external carotid artery Right vertebral artery: The origin of the right vertebral artery is unremarkable. It is patent throughout. Left vertebral artery: The origin of the left vertebral artery is unremarkable. It is patent throughout. Soft tissues: No soft tissue masses of the neck identified. Bones/joints: There is diffuse degenerative change of the cervical spine. There is a reversed cervical lordosis with the apex at the C 4 level. There is disc space narrowing endplate sclerosis and spur formation principally from C 3 through C6. There are multiple levels of bilateral foraminal stenoses secondary to the degenerative changes extending from the C 3-4 level through the C6-C7 level. Lungs: There are chronic changes in both lung apices. There is a ground-glass infiltrate in the posterior segment of the right upper lobe. There are patchy infiltrates in the superior segment of the right lower lobe. The patchy infiltrate has a nodular appearance most likely secondary to the infiltrate rather than true pulmonary nodules. Follow-up chest CT scan is still recommended. There is overall increased hilar adenopathy. IMPRESSION: 1. No significant atherosclerotic disease and no hemodynamically significant stenoses of either carotid system. 2. The vertebral arteries are patent. 3. Diffuse degenerative change of the cervical spine with reversed lordosis and multiple levels of bilateral foraminal stenoses. 4. Focus of ground-glass infiltrate in the posterior segment of the right upper lobe and patchy infiltrate with a nodular appearance in the superior segment of the right lower lobe. There is overall increased hilar adenopathy A follow-up chest CT scan is recommended. Radiologic Study #2: Attestation: I personally reviewed and interpreted this imaging study as follows: Imaging: CT Scan Radiologist's impression: Exam: CT Abdomen And Pelvis With Contrast Exam date and time: 02/15/2024 1:44 PM Age: 78 years old Clinical indication: Other: Suspect biliary obstructive pathology TECHNIQUE: Imaging protocol: Computed tomography of the abdomen and pelvis with contrast. Radiation optimization: All CT scans at this facility use at least one of these dose optimization techniques: automated exposure control; mA and/or kV adjustment per patient size (includes targeted exams where dose is matched to clinical indication); or iterative reconstruction. Contrast material: OMNI 350; Contrast volume: 100 ml; Contrast route: INTRAVENOUS (IV); COMPARISON: CT ABDOMEN PELVIS W 09/30/2023 5:21 PM FINDINGS: Lungs: There is a moderate focus of airspace infiltrate/pneumonia in the posterior segment of the left lower lobe. There are no effusions or pneumothoraces. Heart: The heart is not enlarged. No coronary artery calcification. Liver: The liver shows no abnormal focal lesion. There is a subcentimeter low-density lesion along the inferior right hepatic lobe most likely representing a cyst and is unchanged. Gallbladder and biliary ducts: There has been a prior cholecystectomy. No abnormal biliary dilatation. Pancreas: The pancreas shows no mass or inflammatory process. Spleen: The spleen is not enlarged. No focal lesion. Adrenal glands: The adrenal glands are unremarkable. Kidneys and ureters: Both kidneys demonstrate peripelvic cysts. No obstruction or stones of either kidney identified. There is a subcentimeter low-density right renal cortical lesion most likely representing a cyst which is unchanged. Stomach and bowel: The stomach is not obstructed. There is thickening of the gastric fundus. This is nonspecific but could represent an underlying gastritis. No bowel obstruction. There are a few scattered diverticula of the sigmoid colon. There is no diverticulitis. No inflammatory process of the sigmoid colon. Appendix: No findings for appendicitis Intraperitoneal space: No free air or free fluid Vasculature: The abdominal aorta is of normal caliber. No aneurysm or dissection. There is calcification at the origin of the celiac axis without significant stenosis. No stenoses at the origin of the superior mesenteric artery. Lymph nodes: No abnormal periaortic adenopathy Urinary bladder: The bladder shows no filling defects. Reproductive: The prostate gland measures 4.2 cm AP x 4.3 cm trans Bones/joints: There are diffuse degenerative changes throughout the lumbar spine without acute bony change. Changes consist of loss of disc height endplate sclerosis and spur formation. There is a minimal anterior subluxation of L5 on S1 by 4 mm. There is expansion of the sacral spinal canal secondary to underlying Tarlov cysts. Soft tissues: No abnormal subcutaneous lesions of the abdominal wall identified. There is a small left inguinal hernia containing fat and a trace amount of fluid. IMPRESSION: 1. Left lower lobe pneumonia. 2. Thickening of the gastric fundus, nonspecific but may represent an underlying gastritis. 3. Subcentimeter low-density lesion in the inferior right hepatic lobe and in both kidneys consistent with cysts, unchanged. 4. Sigmoid diverticulosis without diverticulitis 5. Prior cholecystectomy without biliary dilatation 6. No free air or free fluid. Dictated and Authenticated by: Esteabn Perkins MD. Radiologic Study #3: Attestation: I personally reviewed and interpreted this imaging study as follows: Imaging: X-Ray Radiologist's impression: Exam: XR Chest Exam date and time: 02/15/2024 1:56 PM Age: 78 years old Clinical indication: Other: Slight diminished L lower lobe TECHNIQUE: Imaging protocol: Radiologic exam of the chest. Views: 2 views. COMPARISON: CT THORAX ABD/PEL CTA 03/13/2023 9:01 AM FINDINGS: Lungs: There is mild hyperinflation. There is increased density in the left lung base in a retrocardiac position consistent with an underlying patchy infiltrate. There also appears to be increased density in the right lung apex consistent with chronic change and probable patchy infiltrate. Pleural spaces: No effusions. No pneumothoraces Heart/Mediastinum: The heart is normal in size. The superior mediastinum is unremarkable. Bones/joints: There are mild diffuse degenerative changes of the thoracic spine without acute bony change. IMPRESSION: 1. Patchy left basilar infiltrate and patchy right upper lobe infiltrate. Dictated and Authenticated by: Esteban Perkins MD. Radiologic Study #4: Attestation: I personally reviewed and interpreted this imaging study as follows: Imaging: X-Ray Radiologist's impression: Exam: XR Left Knee Exam date and time: 02/15/2024 12:50 PM Age: 78 years old Clinical indication: Other: Patellar bruising TECHNIQUE: Imaging protocol: Radiologic exam of the left knee. Views: 4 or more views. COMPARISON: NM ABSCESS IMG WHOLE BODY GRP 09/29/2019 9:24 AM FINDINGS: Bones/joints: No acute fracture or dislocation identified. There is moderate osteoarthritis of the lateral joint compartment consisting of joint space narrowing. The patella is nondisplaced. There is mild degenerative change of the articular surface of the patella consisting of spur formation. Soft tissues: No abnormal joint fluid identified. No foreign bodies or soft tissue gas. IMPRESSION: 1. 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 Dictated and Authenticated by: Esteban Perkins MD. Radiologic Study #5: Attestation: I personally reviewed and interpreted this imaging study as follows: Imaging: X-Ray Radiologist's impression: Exam: XR Right Elbow Exam date and time: 02/15/2024 12:47 PM Age: 78 years old Clinical indication: Other: Unreliable, bruise R elbow TECHNIQUE: Imaging protocol: Radiologic exam of the right elbow. Views: 3 or more views. COMPARISON: NM ABSCESS IMG WHOLE BODY GRP 09/29/2019 9:24 AM FINDINGS: Bones/joints: No acute fracture or dislocation identified. There is no significant bony degenerative change. No periosteal reactions. Soft tissues: No abnormal joint fluid identified. No abnormal foreign bodies. IMPRESSION: No acute bony change identified. This does not exclude soft tissue injury or bone bruising. Dictated and Authenticated by: Esteban Perkins MD. Lab Data Lab results reviewed: Yes I reviewed the patient's lab results. Labs: Laboratory Tests Range/Units 02/15/24 02/15/24 11:43 12:38 WBC (4.4-10.8) 10^3/uL 9.24 RBC (4.36-5.78) 10^6/uL 3.49 L Hgb (13.5-17.5) g/dL 11.1 L Hct (40.0-50.0) % 34.0 L MCV (80-95) fL 97 H MCH (27.0-33.0) pg 31.8 MCHC (32.0-36.0) % 32.6 RDW (11.8-14.1) % 12.8 Plt Count (130-400) 10^3/uL 129 L MPV (8.0-11.0) fL 9.7 Immature Gran % % 0.5 Neutrophils % % 82.1 Lymphocytes % % 6.8 Monocytes % % 10.3 Eosinophils % % 0.0 Basophils % % 0.3 Nucleated RBC % (0.0-0.3) % 0.0 Absolute Neutrophils (1.2-6.7) 10^3/uL 7.58 H Absolute Lymphocytes (1.2-3.4) 10^3/uL 0.63 L Absolute Monocytes (0.1-0.8) 10^3/uL 0.95 H Absolute Eosinophils (0.0-0.7) 10^3/uL 0.00 Absolute Basophils (0.0-0.2) 10^3/uL 0.03 VBG Lactate (0.6-1.4) mmol/L 1.4 Sodium (136-145) mmol/L 141 Potassium (3.5-5.1) mmol/L 3.8 Chloride (98-107) mmol/L 104 Carbon Dioxide (21.0-32.0) mmol/L 27.8 Anion Gap (3-11) mmol/L 9.2 BUN (7-18) mg/dL 27 H Creatinine (0.70-1.30) mg/dL 1.5 H Est GFR (CKD-EPI 2020) (mL/min/1.73m2) 46.77 Glucose (74-106) mg/dL 119 H Calcium (8.5-10.1) mg/dL 9.3 Magnesium (1.8-2.4) mg/dL 1.6 L Total Bilirubin (0.2-1.0) mg/dL 3.72 H Conjugated Bilirubin (0.0-0.2) mg/dL 1.1 H AST (15-37) U/L 142 H ALT (16-63) U/L 100 H Alkaline Phosphatase (46-116) U/L 127 H Ammonia (11-32) umol/L < 10 L Creatine Kinase (39-308) U/L 2627 H Troponin I (<or=76) ng/L 27 Total Protein (6.4-8.2) g/dL 6.8 Albumin (3.4-5.0) g/dL 3.4 Lipase (16-77) U/L 24 Procalcitonin ng/mL 5.3 TSH (0.36-3.74) uIU/mL 1.14 Urine Color (Yellow) Dark Yellow Urine Clarity (Clear) Clear Urine pH (5-8) 5.5 Ur Specific [place] (1.005-1.025) 1.015 Urine Protein (Neg-Trace) mg/dL 30 H Urine Ketones (Negative) mg/dL Trace H Urine Blood (Negative) Small H Urine Nitrite (Negative) Negative Urine Bilirubin (Negative) Negative Urine Urobilinogen (Up to 0.2) mg/dL 0.2 Ur Leukocyte Esterase (Negative) Negative Urine RBC (0-2) HPF 3-5 H Urine WBC (0-5) HPF Negative Ur Epithelial Cells (Negative) HPF Rare Urine Crystals (Negative) HPF Negative Urine Bacteria (Negative) HPF Negative Urine Casts (Negative) LPF 3-5 Fine Granular Urine Mucus (Negative) Negative Ur Culture Indicated? No Urine Glucose (Negative) mg/dL Negative Urine Opiates Screen (Negative) Negative Urine Methadone Screen (Negative) Negative Ur Barbiturates Screen (Negative) Negative Ur Tricyclics Screen (Negative) Negative Ur Amphetamines Screen (Negative) Negative U Benzodiazepines Scrn (Negative) Negative Urine Cocaine Screen (Negative) Negative Ur THC Screen (Negative) Negative Ethyl Alcohol (<10) mg/dL < 3.0 Quality:[facility] Health Related Social Needs: No Data to Display PFSH All Active Problems (Updated 02/15/24 @ 15:27 by Tran Flores NP) Altered mental status, unspecified (Acute) Discharge planning issues (Acute) DVT prophylaxis (Acute) Hypothyroidism (Chronic) Pneumonia (Acute) Rhabdomyolysis (Acute) Bile reflux gastritis (Acute) Gastroesophageal reflux disease with esophagitis without hemorrhage (Acute) Chronic anemia (Acute) Fe deficiency anemia (Acute) Diverticula of colon (Acute) Hiatal hernia with GERD (Acute) GERD (gastroesophageal reflux disease) (Chronic) Thyroid disease (Acute) BPH w urinary obs/LUTS (Chronic) Seasonal allergies (Acute) Obstructive sleep apnea (Chronic) Hyperlipidemia (Acute) Generalized anxiety disorder (Acute) Mild cognitive impairment (Acute) Hepatomegaly (Acute) Constipation (Chronic) Ambulatory dysfunction (Acute) Back pain (Acute) Anemia of chronic disease (Acute) Essential hypertension (Chronic) Constipation (Acute) PSVT (paroxysmal supraventricular tachycardia) (Acute) Medical History (Updated 02/15/24 @ 15:27 by Tran Flores NP) Hypotension Near syncope Palpitations Light-headed feeling Impacted cerumen, right ear Abdominal pain Neck pain Cellulitis Knee pain Impacted cerumen, bilateral Arthritis Insomnia Sigmoid diverticulosis HILDA on CPAP Transaminitis Closed head injury Dysphagia Rhabdomyolysis Secondary bacterial pneumonia Dehydration Acute kidney injury Multifocal pneumonia COVID-19 Feeling of incomplete bladder emptying Difficulty in urination Suprapubic pressure Anemia, blood loss Erythema multiforme Anemia Toxic metabolic encephalopathy Sepsis SBO (small bowel obstruction) Dehydration Ileus Acute confusion Clostridium difficile enterocolitis Vomiting Lumbar discitis MSSA bacteremia Urinary retention History of Clostridioides difficile colitis (~10/2013) 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 Casey Mixon, infectious disease, [place]; completed treatment 11/20/2013; complicated by C. difficile colitis MSSA (methicillin susceptible Staphylococcus aureus) septicemia (10/09/13) in setting of ruputured appendicitis and found to have disciitis epidural abscess, [place]; Dr. Casey Mixon, infectious disease BPH (benign prostatic hyperplasia) Conductive hearing loss Sensorineural hearing loss Panic anxiety syndrome Ambulatory dysfunction Back pain Gram-positive cocci bacteremia Left inguinal hernia Erectile dysfunction Surgical History (Updated 12/18/23 @ 14:29 by Sunshine Avendaño) History of esophagogastroduodenoscopy (~11/2023) H/O sinus surgery History of tonsillectomy and adenoidectomy History of bilateral cataract extraction History of cholecystectomy (~1998) S/P laparoscopic appendectomy (10/09/13) S/P left inguinal hernia repair Family History Mother No problems noted. Father No problems noted. Social History Smoking/Tobacco Use Status: Former Tobacco Use Quit Date: 05/27/75 Tobacco: How many years used: 32 Quit status: quit date established Second Hand Exposure: No Smoking risk assessment performed?: Yes Alcohol Intake: former Year quit: 1975 Drug use: Never Substance use type: does not use Housing: apartment Communication Needs: None Do you need help understanding health information?: Never Pets and animals: No Sexually active: No Do you think of yourself as: straight/heterosexual Current gender identity: male What is your relationship status?: How often do you talk on the phone with friends or family?: decline to answer How often do you get together with friends or relatives?: once per week How often do you attend quaker or episcopalian services?: decline to answer Do you belong to any clubs or organized social groups?: no Panel score (0-1 are the most socially isolated patients): 0 What type of physical activity do you participate in: walking Alma/Yazidism: Rastafari Special alma needs: No Seatbelt use: always Drive intox or ride w/intox regional driver: No Do you feel safe at home: Yes Do you feel safe in your relationship?: No Additional Social history: lives alone
--- NOTE | 2024-02-15 11:30 | DI.CT_ITS ---
Exam(s) CT BRAIN NECK CTA EXAM: CT BRAIN NECK CTA CLINICAL HISTORY: falls, AMS yesterday? ?encephalopathic vs focal. TECHNIQUE: Imaging Protocol: Axial CT angiography was performed with multi-slice acquisition and mu lti-planar and/or 3D reconstructions. CONTRAST MATERIAL: Intravenous: Omnipaque 350 Contrast volume:structured data in ml COMPARISON: CT CT HEAD WO from 02/18/2023 FINDINGS: CTA Neck W: VISUALIZED LUNG APICES: There is significant confluent infiltrate in the posterior segment of the rig ht upper lobe and superior segment of the partially included right lower lobe. Aortic arch anatomy: The aortic arch anatomy is conventional and there is no significant stenosis at the origin of the great vessels off of the aortic arch. No intimal flap evident. Anterior circulation: Both common carotid arteries ascend with normal luminal diameters. At the level the right carotid bulb and proximal right ICA there is only mild atherosclerotic disease . No hemodynamically significant stenosis evident within the proximal right ICA nor within the right ICA higher up in the neck and skull base. On the opposite-left side there is some plaque at the carotid bifurcation posterior wall and partiall y calcified plaque on the posterior wall of the proximal left ICA. Amount of stenosis is estimated a t approximately 15-20 percent. The left ICA above this level in the upper neck appears unremarkable as well as in the skull base. Posterior circulation: Both vertebral arteries originate in conventional fashion off of the subclavian arteries and there is no obvious stenosis at the origin of the vertebral arteries. Both vertebral arteries exhibit normal luminal diameters within the foramen transversarium. Both vertebral arteries contribute to the formation of the basilar artery at the skull base. CTA Brain W: Anterior circulation: Both internal carotid arteries are patent in the skull base-carotid canals as well as within the cave rnous sinuses. The supraclinoid aspects of the ICAs are patent. Both A1 segments are patent as are the anterior cer ebral arteries and there is no evidence of aneurysm at the level of the anterior communicating artery . Both middle cerebral arteries are patent with no evidence of significant stenosis nor intraluminal th rombus. There also no aneurysms of these vessels. Posterior circulation: The basilar artery ascends in the midline. Distally it gives off patent bilateral superior cerebella r arteries. Above this level the basilar artery terminates as patent bilateral posterior cerebral arteries. There is no evidence of aneurysm at the tip of the basilar artery nor elsewhere in the [id number] is. CT BRAIN: There is no evidence of intracranial hemorrhage, mass effect, or shift of midline structures. There are no extra-axial fluid collections. Ventricles are not enlarged or shifted. There are no ring enh ancing lesions in the brain and no abnormal meningeal enhancement. IMPRESSION: 1. Patent carotid arteries in the neck. No hemodynamically significant stenosis. 2. Patent vertebral arteries. No significant stenosis. No dissection. 3. Patent intracranial arteries. 4. No acute intracranial findings. 5. Incidentally noted is significant infiltrate in the partially visualized upper right lung includin g the right upper lobe and superior segment right lower lobe. Follow-up chest CT scan is recommended . First read by [facility]. RADIATION DOSE DELIVERED: 2,030.29mGy.cm Total DLP DATA REPOSITORY: All CT scans at this facility are submitted to the National Radiology Data Registry (NRDR) Dose Index Registry (DIR) with the [employer] (ACR). RADIATION OPTIMIZATION: All CT scans at this facility use at least one of these dose optimization te chniques: automated exposure control; mA and/or kV adjustment per patient size (includes targeted exa ms where dose is matched to clinical indication); or iterative reconstruction.
[2024-02-15 11:50] LABS: Lactate 1.4 mmol/L (0.6-1.4)
[2024-02-15 11:54] LABS: Abs Immature Grans 0.05 10^3/uL (0.0-0.06); Absolute Basophil Count 0.03 10^3/uL (0.0-0.2); Absolute Lymphocyte Count 0.63 10^3/uL (1.2-3.4); Absolute Monocyte Count 0.95 10^3/uL (0.1-0.8); Absolute Neutrophil Count 7.58 10^3/uL (1.2-6.7); Basophils % 0.3 %; HGB 11.1 g/dL (13.5-17.5); Immature Grans % 0.5 %; Lymphocytes % 6.8 %; MCH 31.8 pg (27.0-33.0); MCHC 32.6 % (32.0-36.0); MCV 97 fL (80-95); MPV 9.7 fL (8.0-11.0); Monocytes % 10.3 %; Neutrophils % 82.1 %; Platelet Count 129 10^3/uL (130-400); RBC 3.49 10^6/uL (4.36-5.78); RDW 12.8 % (11.8-14.1); RDW-SD 45.6 fL; WBC 9.24 10^3/uL (4.4-10.8)
[2024-02-15] MEDS: Normal Saline - Diluent 50 ML VIAL IJ ×2 (12:07→13:41)
[2024-02-15 12:08] LABS: Ammonia < 10 umol/L (11-32)
[2024-02-15] MEDS: Omnipaque 350 MG/ML 100 ML BTL IJ ×2 (12:08→13:42)
[2024-02-15 12:29] LABS: ALT 100 U/L (16-63); AST 142 U/L (15-37); Albumin 3.4 g/dL (3.4-5.0); Alkaline Phosphatase 127 U/L (46-116); Anion Gap 9.2 mmol/L (3-11); BUN 27 mg/dL (7-18); Bilirubin, Total 3.72 mg/dL (0.2-1.0); CO2 27.8 mmol/L (21.0-32.0); CREATININE 1.5 mg/dL (0.70-1.30); Calcium 9.3 mg/dL (8.5-10.1); Chloride 104 mmol/L (98-107); Estimated GFR 46.77 (mL/min/1.73m2); Glucose 119 mg/dL (74-106); Lipase 24 U/L (16-77); Magnesium 1.6 mg/dL (1.8-2.4); Potassium 3.8 mmol/L (3.5-5.1); Sodium 141 mmol/L (136-145); TSH (W/Ref FT4) 1.14 uIU/mL (0.36-3.74); Total Protein 6.8 g/dL (6.4-8.2); Troponin I 27 ng/L (<or=76)
[2024-02-15 12:30] LABS: Creatine Kinase 2627 U/L (39-308); ETHANOL BLOOD < 3.0 mg/dL (<10)
--- NOTE | 2024-02-15 12:30 | DI.RAD_ITS ---
Exam(s) XR ELBOW RT COMPLETE EXAM: XR ELBOW RT COMPLETE CLINICAL HISTORY: unreliable, bruise R elbow. TECHNIQUE: 2D digital imaging was performed. COMPARISON: No exams were available for comparison FINDINGS: 3 views No evidence of acute fracture or joint effusion. No swelling of the olecranon bursa. Mild irregular ity of the cortical surface of the medial epicondyle may reflect epicondylitis. Radial head and neck appear unremarkable. Bone density normal. No osseous lesions. IMPRESSION: No acute osseous findings in the elbow. No obvious joint effusion DATA REPOSITORY: RADIATION DOSE DELIVERED:
--- NOTE | 2024-02-15 12:30 | DI.RAD_ITS ---
Exam(s) XR KNEE LT 4V AP,LAT,CHARLENE,PAT EXAM: XR KNEE LT 4V AP,LAT,CHARLENE,PAT CLINICAL HISTORY: 4 view- patellar bruising. TECHNIQUE: 2D digital imaging was performed. COMPARISON: No exams were available for comparison FINDINGS: Four views. No evidence of acute fracture or obvious joint effusion. There is [id number] narrowing of the lateral compartment with an element of valgus deformity. The medial compartment exhibits normal height. Patellofemoral compartment exhibits some degenerative pippa nge. Calcific density posteriorly noted which measures 7 x 6 mm and is too low to be to fabella. Th is may be a loose body in a Mullins cyst. IMPRESSION: No acute fractures. No joint effusion. Advanced degenerative narrowing of the lateral compartment with valgus deformity. Calcified loose density posteriorly which is possibly in a Mullins cyst in the medial popliteal fossa. DATA REPOSITORY: RADIATION DOSE DELIVERED:
[2024-02-15 12:33] LABS: Procalcitonin 5.3 ng/mL
[2024-02-15 12:55] LABS: Bilirubin Negative (Negative); Blood Small (Negative); Clarity Clear (Clear); Glucose Negative (Negative); Ketones Trace mg/dL (Negative); Leukocyte Esterase Negative (Negative); Nitrite Negative (Negative); Specific Gravity 1.015 (1.005-1.025); Urobilinogen 0.2 mg/dL (Up to 0.2); pH 5.5 (5-8)
[2024-02-15 13:00] LABS: *AMPHETAMINES SCREEN URINE Negative (Negative); *BARBITURATES SCREEN URINE Negative (Negative); *BENZODIAZEPINES SCREEN URINE Negative (Negative); Cannabinoids THC Negative (Negative); Cocaine Screen,Urine Negative (Negative); METHADONE URINE SCREEN Negative (Negative); OPIATES URINE SCREEN Negative (Negative)
--- NOTE | 2024-02-15 13:00 | DI.CT_ITS ---
Exam(s) CT ABDOMEN PELVIS W EXAM: CT ABDOMEN PELVIS W CLINICAL HISTORY: suspect biliary obstructive pathology. TECHNIQUE: Imaging Protocol: Axial computed tomography images with coronal and sagittal reformatted images were created and reviewed CONTRAST MATERIAL: Intravenous: Omnipaque-350 100cc Oral: None COMPARISON: CT CT ABDOMEN PELVIS W from 09/30/2023 FINDINGS: VISUALIZED LUNG BASES: There is significant infiltrate in the visualized basal segments of the left l ower lobe, not previously present on September 30, 2023 and consistent with infectious infiltrate. Right veronique ng base is clear. There are no pleural effusions.. Heart size normal. No pericardial effusion. ABDOMEN: There is no ascites. GI: No hiatal hernia. There is abnormal thickening of the posterior wall of the gastric fundus-cardi a region. Remainder of the stomach is grossly unremarkable. No evidence of bowel obstruction, free air, nor abscess. There is evidence of possible distal small bowel/proximal right colon resection. Appendix appears to be surgically absent. LIVER: There are no focal hepatic lesions evident. No dilated intrahepatic ducts. GALLBLADDER/BILIARY: Gallbladder not seen and presumed to be surgically absent. CBD is not dilated. PANCREAS: No evidence of pancreatic mass nor dilatation of the pancreatic duct. SPLEEN: Spleen is not enlarged. No obvious intrasplenic lesions. Splenic and portal veins are paten t. ADRENALS: There are no significant adrenal masses. KIDNEYS:There are parapelvic cysts again noted in both kidneys. Also small unchanged 8 mm cortical b enign cyst in the right kidney. No solid renal masses. No calculi nor hydronephrosis.. Ureters are not dilated. Bladder is indented by mildly enlarged prostate. ABDOMINAL AORTA: Abdominal aorta is not enlarged. LYMPH NODES:There is no retroperitoneal nor paraaortic adenopathy. ABDOMINAL WALL: Finding left inguinal region is unchanged and probably reflects prior left inguinal h ernia repair. GI: There is no evidence of bowel obstruction, free air, nor abscess. PELVIS: GI: No evidence of sigmoid diverticulitis. LYMPH NODES: There is no intrapelvic nor inguinal adenopathy. REPRODUCTIVE: Mildly enlarged prostate. URINARY BLADDER: No calculi nor obvious masses evident OSSEOUS: No acute fractures and no significant osseous lesions. 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 There is mild anterolis thesis of L5 upon S1 again noted related to facet arthrosis. Also advanced disc space narrowing at L 4-5 noted and moderate disc space narrowing at lumbar levels above this. IMPRESSION: 1. Left lower lobe infiltrate/pneumonia. No pleural effusions. 2. Abnormal thickening of the gastric fundal wall, most probably gastritis. No evidence of perforati on. 3. Gallbladder is not seen and is presumed to be surgically absent. 4. 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 5. Mildly enlarged prostate gland. RADIATION DOSE DELIVERED: 246.61mGy.cm Total DLP DATA REPOSITORY: All CT scans at this facility are submitted to the National Radiology Data Registry (NRDR) Dose Index Registry (DIR) with the [employer] (ACR). RADIATION OPTIMIZATION: All CT scans at this facility use at least one of these dose optimization te chniques: automated exposure control; mA and/or kV adjustment per patient size (includes targeted exa ms where dose is matched to clinical indication); or iterative reconstruction.
--- NOTE | 2024-02-15 13:00 | DI.RAD_ITS ---
Exam(s) XR CHEST 2V PA LATERAL EXAM: XR CHEST 2V PA LATERAL CLINICAL HISTORY: slight diminished L lower lobe. TECHNIQUE: 2D digital imaging was performed. COMPARISON: CT CT ABDOMEN PELVIS W from 02/15/2024 Prior chest x-ray January 2023. FINDINGS: 2 views: Heart size is normal. The mediastinum is not widened. There is patchy infiltrate in the left lower lobe, seen on recent uppermost images of recent abdomina l CT scan. Also subtle suggestion of increased markings at mid level right lung although these are in areas of o verlapping ribs. No pleural effusions. No pulmonary edema. IMPRESSION: Left lower lobe infiltrate. Other findings as above. Consider chest CT scan for added sensitivity/s pecificity. DATA REPOSITORY: RADIATION DOSE DELIVERED:
[2024-02-15] MEDS: MAGNESIUM SULFATE 1 GM/100 ML BAG IVINF (13:03)
[2024-02-15 13:04] LABS: Tricyclic Antidepressants Negative (Negative)
[2024-02-15] MEDS: Normal Saline 1,000 ML 1000 ML IV (13:04)
[2024-02-15 13:07] LABS: Bacteria Negative HPF (Negative); C & S Indicated? No; Casts 3-5 Fine Granular LPF (Negative); Crystals Negative HPF (Negative); Epithelial Cells Rare HPF (Negative); Mucus Negative (Negative); WBC Negative HPF (0-5)
[2024-02-15 13:10] LABS: Bilirubin, Direct 1.1 mg/dL (0.0-0.2)
--- NOTE | 2024-02-15 14:22 | DI.VRAD_ITS ---
PROCEDURE INFORMATION: Exam: CTA Head Without And With Contrast, Arteriography Exam date and time: 02/15/2024 12:08 PM Age: 78 years old Clinical indication: Other: Falls, AMS yesterday? ? Encephalopathic vs focal TECHNIQUE: Imaging protocol: Computed tomographic angiography of the head without and with contrast. Exam focused on the arteries. 3D rendering (Not supervised by radiologist): MIP and/or 3D reconstructed images were created by the technologist. Radiation optimization: All CT scans at this facility use at least one of these dose optimization techniques: automated exposure control; mA and/or kV adjustment per patient size (includes targeted exams where dose is matched to clinical indication); or iterative reconstruction. Contrast material: OMNI 350; Contrast volume: 70 ml; Contrast route: INTRAVENOUS (IV); COMPARISON: CT HEAD WO 02/18/2023 10:19 AM FINDINGS: ANTERIOR CIRCULATION: Right internal carotid artery: The internal carotid artery is patent through the carotid siphon. No significant stenosis. Right middle cerebral artery: The right middle cerebral artery shows no significant stenosis, aneurysm or AV malformation. Right anterior cerebral artery: The A1 segment is patent. There is a patent anterior communicating artery. The anterior cerebral artery is unremarkable beyond the anterior communicating artery. Left internal carotid artery: The left internal carotid artery is patent through the carotid siphon without significant disease. Left middle cerebral artery: The left middle cerebral artery shows no focal lesion. No occlusion aneurysm or significant stenosis. Left anterior cerebral artery: The left A1 segment is patent. The anterior cerebral artery is unremarkable beyond the anterior communicating artery. POSTERIOR CIRCULATION: Right vertebral artery: The distal intradural right vertebral artery is patent. No focal lesion. Left vertebral artery: The distal intradural left vertebral artery is patent. No focal lesion. Basilar artery: The basilar artery shows no stenosis or aneurysm. Right posterior cerebral artery: The right posterior communicating artery is not visualized. The right posterior cerebral artery shows no acute focal lesion. Left posterior cerebral artery: The left posterior communicating artery is not visualized. The left posterior cerebral artery shows no acute focal lesion. Venous sinuses: No filling defects in the superior sagittal sinus, straight sinus, transverse sinus or sigmoid sinuses. HEAD: Brain: There is mild diffuse cortical atrophy. No acute infarct or hemorrhage identified. There is no midline shift or mass lesion. Posterior fossa: No acute focal lesion of the brainstem or cerebellum. CSF spaces: There are no subdural or epidural hematomas. There is no subarachnoid hemorrhage. Orbits: The globes and retro-orbital soft tissues are unremarkable Cerebral ventricles: The ventricles are mildly dilated but appropriate to the degree of atrophy. Bones: No calvarial fracture identified. Paranasal sinuses: There is minimal mucoperiosteal thickening of the right maxillary sinus and ethmoid air cells. Mastoid air cells: The mastoid air cells are clear. Soft tissues: No scalp hematoma. IMPRESSION: 1. Normal [place] without occlusion, aneurysm or AV malformation. 2. Normal venous sinuses. 3. Mild diffuse cortical atrophy without current acute infarct hemorrhage or mass lesion. 4. Minimal mucoperiosteal thickening of the right maxillary and bilateral ethmoid air cells. PROCEDURE INFORMATION: Exam: CTA Neck Without And With Contrast Exam date and time: 02/15/2024 12:08 PM Age: 78 years old Clinical indication: Other: Falls, AMS yesterday? ? Encephalopathic vs focal TECHNIQUE: Imaging protocol: Computed tomographic angiography of the neck without and with contrast. Exam focused on the cervical segments of the vasculature. 3D rendering (Not supervised by radiologist): MIP and/or 3D reconstructed images were created by the technologist. Radiation optimization: All CT scans at this facility use at least one of these dose optimization techniques: automated exposure control; mA and/or kV adjustment per patient size (includes targeted exams where dose is matched to clinical indication); or iterative reconstruction. Contrast material: OMNI 350; Contrast volume: 70 ml; Contrast route: INTRAVENOUS (IV); COMPARISON: CT HEAD NECK WO 12/12/2021 4:57 PM FINDINGS: Right common carotid artery: The origin of the right common carotid artery is normal. There are no stenoses along its course. Right internal carotid artery: There is minimal atherosclerotic change at the origin of the internal carotid artery without stenosis Right external carotid artery: The external carotid artery is unremarkable Left common carotid artery: The origin of the left common carotid artery from the aortic arch is normal. No stenoses along its course. Left internal carotid artery: There is mild calcification at the origin of the internal carotid artery without hemodynamically significant stenosis. Left external carotid artery: No stenosis at the origin of the external carotid artery Right vertebral artery: The origin of the right vertebral artery is unremarkable. It is patent throughout. Left vertebral artery: The origin of the left vertebral artery is unremarkable. It is patent throughout. Soft tissues: No soft tissue masses of the neck identified. Bones/joints: There is diffuse degenerative change of the cervical spine. There is a reversed cervical lordosis with the apex at the C 4 level. There is disc space narrowing endplate sclerosis and spur formation principally from C 3 through C6. There are multiple levels of bilateral foraminal stenoses secondary to the degenerative changes extending from the C 3-4 level through the C6-C7 level. Lungs: There are chronic changes in both lung apices. There is a ground-glass infiltrate in the posterior segment of the right upper lobe. There are patchy infiltrates in the superior segment of the right lower lobe. The patchy infiltrate has a nodular appearance most likely secondary to the infiltrate rather than true pulmonary nodules. Follow-up chest CT scan is still recommended. There is overall increased hilar adenopathy. IMPRESSION: 1. No significant atherosclerotic disease and no hemodynamically significant stenoses of either carotid system. 2. The vertebral arteries are patent. 3. Diffuse degenerative change of the cervical spine with reversed lordosis and multiple levels of bilateral foraminal stenoses. 4. Focus of ground-glass infiltrate in the posterior segment of the right upper lobe and patchy infiltrate with a nodular appearance in the superior segment of the right lower lobe. There is overall increased hilar adenopathy A follow-up chest CT scan is recommended. REFERENCES: NASCET CRITERIA. The degree of stenosis in the cervical segment of the internal carotid artery is based on NASCET criteria. Normal is no stenosis. Mild is less than 50% stenosis. Moderate is 50-69% stenosis. Severe is 70% to 99% stenosis. Total occlusion is no detectable patent lumen. Dictated and Authenticated by: Esteban Perkins MD. Ordering:JOYCE Cardoso MD
--- NOTE | 2024-02-15 14:27 | DI.VRAD_ITS ---
PROCEDURE INFORMATION: Exam: XR Right Elbow Exam date and time: 02/15/2024 12:47 PM Age: 78 years old Clinical indication: Other: Unreliable, bruise R elbow TECHNIQUE: Imaging protocol: Radiologic exam of the right elbow. Views: 3 or more views. COMPARISON: NM ABSCESS IMG WHOLE BODY GRP 09/29/2019 9:24 AM FINDINGS: Bones/joints: No acute fracture or dislocation identified. There is no significant bony degenerative change. No periosteal reactions. Soft tissues: No abnormal joint fluid identified. No abnormal foreign bodies. IMPRESSION: No acute bony change identified. This does not exclude soft tissue injury or bone bruising. Dictated and Authenticated by: Esteban Perkins MD. Ordering:JOYCE Cardoso MD
--- NOTE | 2024-02-15 14:30 | DI.VRAD_ITS ---
PROCEDURE INFORMATION: Exam: XR Left Knee Exam date and time: 02/15/2024 12:50 PM Age: 78 years old Clinical indication: Other: Patellar bruising TECHNIQUE: Imaging protocol: Radiologic exam of the left knee. Views: 4 or more views. COMPARISON: NM ABSCESS IMG WHOLE BODY GRP 09/29/2019 9:24 AM FINDINGS: Bones/joints: No acute fracture or dislocation identified. There is moderate osteoarthritis of the lateral joint compartment consisting of joint space narrowing. The patella is nondisplaced. There is mild degenerative change of the articular surface of the patella consisting of spur formation. Soft tissues: No abnormal joint fluid identified. No foreign bodies or soft tissue gas. IMPRESSION: 1. 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 Dictated and Authenticated by: Esteban Perkins MD. Ordering:JOYCE Cardoso MD
--- NOTE | 2024-02-15 14:50 | DI.VRAD_ITS ---
PROCEDURE INFORMATION: Exam: CT Abdomen And Pelvis With Contrast Exam date and time: 02/15/2024 1:44 PM Age: 78 years old Clinical indication: Other: Suspect biliary obstructive pathology TECHNIQUE: Imaging protocol: Computed tomography of the abdomen and pelvis with contrast. Radiation optimization: All CT scans at this facility use at least one of these dose optimization techniques: automated exposure control; mA and/or kV adjustment per patient size (includes targeted exams where dose is matched to clinical indication); or iterative reconstruction. Contrast material: OMNI 350; Contrast volume: 100 ml; Contrast route: INTRAVENOUS (IV); COMPARISON: CT ABDOMEN PELVIS W 09/30/2023 5:21 PM FINDINGS: Lungs: There is a moderate focus of airspace infiltrate/pneumonia in the posterior segment of the left lower lobe. There are no effusions or pneumothoraces. Heart: The heart is not enlarged. No coronary artery calcification. Liver: The liver shows no abnormal focal lesion. There is a subcentimeter low-density lesion along the inferior right hepatic lobe most likely representing a cyst and is unchanged. Gallbladder and biliary ducts: There has been a prior cholecystectomy. No abnormal biliary dilatation. Pancreas: The pancreas shows no mass or inflammatory process. Spleen: The spleen is not enlarged. No focal lesion. Adrenal glands: The adrenal glands are unremarkable. Kidneys and ureters: Both kidneys demonstrate peripelvic cysts. No obstruction or stones of either kidney identified. There is a subcentimeter low-density right renal cortical lesion most likely representing a cyst which is unchanged. Stomach and bowel: The stomach is not obstructed. There is thickening of the gastric fundus. This is nonspecific but could represent an underlying gastritis. No bowel obstruction. There are a few scattered diverticula of the sigmoid colon. There is no diverticulitis. No inflammatory process of the sigmoid colon. Appendix: No findings for appendicitis Intraperitoneal space: No free air or free fluid Vasculature: The abdominal aorta is of normal caliber. No aneurysm or dissection. There is calcification at the origin of the celiac axis without significant stenosis. No stenoses at the origin of the superior mesenteric artery. Lymph nodes: No abnormal periaortic adenopathy Urinary bladder: The bladder shows no filling defects. Reproductive: The prostate gland measures 4.2 cm AP x 4.3 cm trans Bones/joints: There are diffuse degenerative changes throughout the lumbar spine without acute bony change. Changes consist of loss of disc height endplate sclerosis and spur formation. There is a minimal anterior subluxation of L5 on S1 by 4 mm. There is expansion of the sacral spinal canal secondary to underlying Tarlov cysts. Soft tissues: No abnormal subcutaneous lesions of the abdominal wall identified. There is a small left inguinal hernia containing fat and a trace amount of fluid. IMPRESSION: 1. Left lower lobe pneumonia. 2. Thickening of the gastric fundus, nonspecific but may represent an underlying gastritis. 3. Subcentimeter low-density lesion in the inferior right hepatic lobe and in both kidneys consistent with cysts, unchanged. 4. Sigmoid diverticulosis without diverticulitis 5. Prior cholecystectomy without biliary dilatation 6. No free air or free fluid. Dictated and Authenticated by: Esteban Perkins MD. Ordering:JOYCE Cardoso MD
--- NOTE | 2024-02-15 14:53 | DI.VRAD_ITS ---
PROCEDURE INFORMATION: Exam: XR Chest Exam date and time: 02/15/2024 1:56 PM Age: 78 years old Clinical indication: Other: Slight diminished L lower lobe TECHNIQUE: Imaging protocol: Radiologic exam of the chest. Views: 2 views. COMPARISON: CT THORAX ABD/PEL CTA 03/13/2023 9:01 AM FINDINGS: Lungs: There is mild hyperinflation. There is increased density in the left lung base in a retrocardiac position consistent with an underlying patchy infiltrate. There also appears to be increased density in the right lung apex consistent with chronic change and probable patchy infiltrate. Pleural spaces: No effusions. No pneumothoraces Heart/Mediastinum: The heart is normal in size. The superior mediastinum is unremarkable. Bones/joints: There are mild diffuse degenerative changes of the thoracic spine without acute bony change. IMPRESSION: 1. Patchy left basilar infiltrate and patchy right upper lobe infiltrate. Dictated and Authenticated by: Esteban Perkins MD. Ordering:JOYCE Cardoso MD
--- NOTE | 2024-02-15 15:13 | HPE_ITS ---
Date of service: 02/15/24 Time of Service: 15:13 Assessment and Plan Assessment and plan (1) Altered mental status, unspecified: Status: Acute Assessment and plan: reported by PCP and neighbors per ED provider. patient is found to be awake, alert and oriented with no focal deficits. in setting of pneumonia and multiple falls. infectious encephalopathy vs post concussive. fall precautions, PT evaluation, neuro checks. (2) Fall: Status: Acute Assessment and plan: multiple falls over past few days. fall precautions PT consultation. (3) Pneumonia: Status: Acute Assessment and plan: community acquired, multilobar, left lower, right upper does not meet sepsis criteria, hemodynamically stable with no oxygen requirements. decided to treat with levaquin day 05/31, based on presentation including encephalopathy, weakness, pneumonia with elevated LFT's, increasing suspicion for legionella. add mucinex, updrafts and I/S legionella and strep pneumo pending (4) Rhabdomyolysis: Status: Acute Assessment and plan: in the setting of multiple falls. continue IV hydration and trend CPK. avoid nephrotoxic drugs CPK 2600 on admission. (5) [id number] kidney injury: Status: Acute Assessment and plan: will continue IV hydration monitor kidney function closely in setting of rhabdo avoid nephrotoxic drugs, renal dose as needed. baseline 1.2-1.3, up to 1.5 on admission. (6) Elevated liver function tests: Status: Acute Assessment and plan: in setting of multiple falls and rhabdo. no obstructive process noted on CT scan has had history of similar elevations with similar presentations in rhabdo. will stop statin. avoid hepatotoxic drugs CT results: Liver: The liver shows no abnormal focal lesion. There is a subcentimeter low-density lesion along the inferior right hepatic lobe most likely representing a cyst and is unchanged. Gallbladder and biliary ducts: There has been a prior cholecystectomy. No abnormal biliary dilatation. Pancreas: The pancreas shows no mass or inflammatory process. Spleen: The spleen is not enlarged. No focal lesion. (7) BPH w urinary obs/LUTS: Status: Chronic Assessment and plan: Continue flomax and proscar while monitoring for hypotension/orthostasis. Check bladder scans if needed. Treat chronic constipation - schedule bowel regimen. (8) Hypothyroidism: Status: Chronic Assessment and plan: TSH 1.14 continue levothyroxine home dose (9) Obstructive sleep apnea: Status: Chronic (10) Constipation: Status: Chronic Assessment and plan: continue bowel regimen (11) DVT prophylaxis: Status: Acute Assessment and plan: enoxaparin daily (12) Discharge planning issues: Status: Acute Assessment and plan: DNR/DNI PT consulted discussed with DR Benitez History of Present Illness History of Present Illness Chief Complaint: falls, ams, Narrative: This is an 78-year-old gentleman past medical history significant for anxiety, cognitive impairment, hypertension, rhabdo, chronic kidney injury, history of elevated liver functions, hypothyroidism, pneumonia who presented to the emergency department after being encouraged by neighbors and PCP for 2 to 3-day history of multiple falls states he was generally weak and can have multiple falls and states he was unable to get himself back up due to his weakness. He denied any fever chills or recent illness although he was a very poor historian. His workup in the emergency department included extensive imaging to rule out fractures or injury from fall and infectious workup which did show right upper lobe and left lower lobe infiltrates. Labs did show elevated CPK of 2600 consistent with history of recent falls and time down on the ground also elevated liver function tests which he has had previously with similar presentations. He was started on levofloxacin to treat his pneumonia. He is asymptomatic from a respiratory standpoint with no oxygen requirement satting in the high 90s on room air. We will continue with IV hydration and close monitoring of kidney function liver function and electrolytes. Will also be evaluated by physical therapy and brought in under fall precautions. Review of Systems All systems reviewed & are unremarkable except as noted in HPI and below PFSH All Active Problems (Updated 02/15/24 @ 16:13 by Tran Flores NP) Elevated liver function tests (Acute) [id number] kidney injury (Acute) Fall (Acute) Altered mental status, unspecified (Acute) Discharge planning issues (Acute) DVT prophylaxis (Acute) Hypothyroidism (Chronic) Pneumonia (Acute) Rhabdomyolysis (Acute) Bile reflux gastritis (Acute) Gastroesophageal reflux disease with esophagitis without hemorrhage (Acute) Chronic anemia (Acute) Fe deficiency anemia (Acute) Diverticula of colon (Acute) Hiatal hernia with GERD (Acute) GERD (gastroesophageal reflux disease) (Chronic) Thyroid disease (Acute) BPH w urinary obs/LUTS (Chronic) Seasonal allergies (Acute) Obstructive sleep apnea (Chronic) Hyperlipidemia (Acute) Generalized anxiety disorder (Acute) Mild cognitive impairment (Acute) Hepatomegaly (Acute) Constipation (Chronic) Ambulatory dysfunction (Acute) Back pain (Acute) Anemia of chronic disease (Acute) Essential hypertension (Chronic) Constipation (Acute) PSVT (paroxysmal supraventricular tachycardia) (Acute) Medical History (Updated 02/15/24 @ 16:13 by Tran Flores NP) Hypotension Near syncope Palpitations Light-headed feeling Impacted cerumen, right ear Abdominal pain Neck pain Cellulitis Knee pain Impacted cerumen, bilateral Arthritis Insomnia Sigmoid diverticulosis HILDA on CPAP Transaminitis Closed head injury Dysphagia Rhabdomyolysis Secondary bacterial pneumonia Dehydration Acute kidney injury Multifocal pneumonia COVID-19 Feeling of incomplete bladder emptying Difficulty in urination Suprapubic pressure Anemia, blood loss Erythema multiforme Anemia Toxic metabolic encephalopathy Sepsis SBO (small bowel obstruction) Dehydration Ileus Acute confusion Clostridium difficile enterocolitis Vomiting Lumbar discitis MSSA bacteremia Urinary retention History of Clostridioides difficile colitis (~10/2013) 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 Casey Mixon, infectious disease, [place], [place]; completed treatment 11/20/2013; complicated by C. difficile colitis MSSA (methicillin susceptible Staphylococcus aureus) septicemia (10/09/13) in setting of ruputured appendicitis and found to have disciitis epidural abscess, [place], [place]; Dr. Casey Mixon, infectious disease BPH (benign prostatic hyperplasia) Conductive hearing loss Sensorineural hearing loss Panic anxiety syndrome Ambulatory dysfunction Back pain Gram-positive cocci bacteremia Left inguinal hernia Erectile dysfunction Surgical History (Updated 12/18/23 @ 14:29 by Sunshine Avendaño) History of esophagogastroduodenoscopy (~11/2023) H/O sinus surgery History of tonsillectomy and adenoidectomy History of bilateral cataract extraction History of cholecystectomy (~1998) S/P laparoscopic appendectomy (10/09/13) S/P left inguinal hernia repair Family History Mother No problems noted. Father No problems noted. Social History Smoking/Tobacco Use Status: Former Tobacco Use Quit Date: 05/27/75 Tobacco: How many years used: 32 Quit status: quit date established Second Hand Exposure: No Smoking risk assessment performed?: Yes Alcohol Intake: former Year quit: 1975 Drug use: Never Substance use type: does not use Housing: apartment Communication Needs: None Do you need help understanding health information?: Never Pets and animals: No Sexually active: No Do you think of yourself as: straight/heterosexual Current gender identity: male What is your relationship status?: How often do you talk on the phone with friends or family?: decline to answer How often do you get together with friends or relatives?: once per week How often do you attend taoism or mandaeism services?: decline to answer Do you belong to any clubs or organized social groups?: no Panel score (0-1 are the most socially isolated patients): 0 What type of physical activity do you participate in: walking Alma/Zoroastrian: Sabianist Special alma needs: No Seatbelt use: always Drive intox 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 Do you feel safe at home: Yes Do you feel safe in your relationship?: No Additional Social history: lives alone Meds Allergies and Home Medications Allergies Allergy/AdvReac Type Severity Reaction Status Date / Time Penicillins Allergy Mild Skin Rash Verified 02/15/24 11:24 cefazolin Allergy Skin Rash Verified 02/15/24 11:24 aspirin AdvReac Mild GI Bleeding Verified 02/15/24 11:24 Home Medications ?Medication ?Instructions ?Recorded ?Confirmed ?Type vacuum erection device system #1 ea 03/28/18 02/15/24 Rx hntrnekl-cn-wsuby 300 mcg-K 60 1 tab PO DAILY 04/11/22 02/15/24 History mcg-lycop 600 mcg-lutein 300 mcg tablet (Centrum Silver Men) polyethylene glycol 3350 17 gram 17 g PO BID #0 ea 03/14/23 02/15/24 Rx oral powder packet (Miralax) finasteride 5 mg tablet (Proscar) 5 mg PO DAILY #90 tabs 05/28/23 02/15/24 Rx lisinopril 2.5 mg tablet 2.5 mg PO DAILY #90 tabs 05/28/23 02/15/24 Rx mirtazapine 15 mg tablet 15 mg PO QHS #90 tabs 05/28/23 02/15/24 Rx simvastatin 10 mg tablet 10 mg PO DAILY #90 tabs 05/28/23 02/15/24 Rx tamsulosin 0.4 mg capsule 0.4 mg PO BID #180 caps 05/28/23 02/15/24 Rx levothyroxine 25 mcg tablet 25 mcg PO DAILY #90 tabs 06/10/23 02/15/24 Rx (Synthroid) pantoprazole 40 mg tablet,delayed 40 mg PO DAILY #90 tabs 10/31/23 02/15/24 Rx release (Protonix) Exam Const General: cooperative, no acute distress, frail appearing and other (poor historian) Nutritional Appearance: thin Orientation: alert and awake HENMT Head: normal to inspection Face and sinus: normal facial exam Mouth: oral mucosae normal Eyes General: appearance normal, both eyes and all related structures Neck Neck: normal visual inspection Chest Chest: normal inspection of the chest Resp Effort & Inspection: normal respiratory effort Auscultation: clear to auscultation bilaterally Cardio Rate: regular rate Rhythm: regular rhythm GI Inspection: normal to inspection Palpation: soft and nontender Auscultation: normal bowel sounds Skin General skin exam: no rashes or lesions noted and ecchymosis (various stages of healing) Neuro General: patient alert and patient awake Gait: normal gait Extrem General: normal to inspection Other: Bilateral upper and lower extremities with normal range of motion without evidence of trauma. Psych Appearance: grossly normal Affect: normal affect Results Labs 02/15/24 11:43 02/15/24 11:43 Labs: Laboratory Results - last 24 hr 02/15/24 02/15/24 11:43 12:38 WBC 9.24 RBC 3.49 L Hgb 11.1 L Hct 34.0 L MCV 97 H MCH 31.8 MCHC 32.6 RDW 12.8 Plt Count 129 L MPV 9.7 Immature Gran % 0.5 Neutrophils % 82.1 Lymphocytes % 6.8 Monocytes % 10.3 Eosinophils % 0.0 Basophils % 0.3 Nucleated RBC % 0.0 Absolute Neutrophils 7.58 H Absolute Lymphocytes 0.63 L Absolute Monocytes 0.95 H Absolute Eosinophils 0.00 Absolute Basophils 0.03 VBG Lactate 1.4 Sodium 141 Potassium 3.8 Chloride 104 Carbon Dioxide 27.8 Anion Gap 9.2 BUN 27 H Creatinine 1.5 H Est GFR (CKD-EPI 2020) 46.77 Glucose 119 H Calcium 9.3 Magnesium 1.6 L Total Bilirubin 3.72 H Conjugated Bilirubin 1.1 H AST 142 H ALT 100 H Alkaline Phosphatase 127 H Ammonia < 10 L Creatine Kinase 2627 H Troponin I 27 Total Protein 6.8 Albumin 3.4 Lipase 24 Procalcitonin 5.3 TSH 1.14 Urine Color Dark Yellow Urine Clarity Clear Urine pH 5.5 Ur Specific [place] 1.015 Urine Protein 30 H Urine Ketones Trace H Urine Blood Small H Urine Nitrite Negative Urine Bilirubin Negative Urine Urobilinogen 0.2 Ur Leukocyte Esterase Negative Urine RBC 3-5 H Urine WBC Negative Ur Epithelial Cells Rare Urine Crystals Negative Urine Bacteria Negative Urine Casts 3-5 Fine Granular Urine Mucus Negative Ur Culture Indicated? No Urine Glucose Negative Urine Opiates Screen Negative Urine Methadone Screen Negative Ur Barbiturates Screen Negative Ur Tricyclics Screen Negative Ur Amphetamines Screen Negative U Benzodiazepines Scrn Negative Urine Cocaine Screen Negative Ur THC Screen Negative Ethyl Alcohol < 3.0 Last Vital Signs Temp 36.6 C 02/15/24 11:21 Pulse 70 02/15/24 13:30 Resp 27 H 02/15/24 15:00 BP 131/53 L 02/15/24 13:30 Pulse Ox 96 02/15/24 15:00 Time Spent Time spent with Patient: >75 minutes Time was spent: preparing to see the patient(eg.review tests), obtaining and/or reviewing separately otained hiistory, ordering medications,tests, procedures, indepentently interpreting results and counseling the patient
[2024-02-15] MEDS: levoFLOXacin 750 MG/150 ML BAG 100 MG IVPB (15:45)
[2024-02-15] MEDS: Normal Saline 1,000 ML 250 ML IV (15:45)
--- NOTE | 2024-02-15 16:35 | W.PC.ACHO ---
Registration Status: Primary Language: Preferred Language: ED Information & Data Chief Complaint GenMedical 02/15/24 11:28 Other Complaint AMS/LOC 02/15/24 11:21 Triage Note pt fell yesterday, was on 02/15/24 11:21 ground for ~ 2 hr, today neighbors/PCP noticed heis off slurring speech. Memory issues, expressive aphasia per EMS. AxoX3 Medical / Surgical History (Last Reviewed 12/17/23 @ 10:29 by Alix Yang) Hypotension Near syncope Palpitations Light-headed feeling Impacted cerumen, right ear Abdominal pain Neck pain Cellulitis Knee pain Impacted cerumen, bilateral Arthritis Insomnia Sigmoid diverticulosis HILDA on CPAP Transaminitis Closed head injury Dysphagia Rhabdomyolysis Secondary bacterial pneumonia Dehydration Acute kidney injury Multifocal pneumonia COVID-19 Feeling of incomplete bladder emptying Difficulty in urination Suprapubic pressure Anemia, blood loss Erythema multiforme Anemia Toxic metabolic encephalopathy Sepsis SBO (small bowel obstruction) Dehydration Ileus Acute confusion Clostridium difficile enterocolitis Vomiting Lumbar discitis MSSA bacteremia Urinary retention History of Clostridioides difficile colitis (~10/2013) Epidural abscess (~10/09/13) Osteomyelitis of vertebra of thoracolumbar region (~10/09/13) MSSA (methicillin susceptible Staphylococcus aureus) septicemia (10/09/13) BPH (benign prostatic hyperplasia) Conductive hearing loss Sensorineural hearing loss Panic anxiety syndrome Ambulatory dysfunction Back pain Gram-positive cocci bacteremia Left inguinal hernia Erectile dysfunction (Last Updated 12/18/23 @ 14:29 by Sunshine Avendaño) History of esophagogastroduodenoscopy (~11/2023) H/O sinus surgery History of tonsillectomy and adenoidectomy History of bilateral cataract extraction History of cholecystectomy (~1998) S/P laparoscopic appendectomy (10/09/13) S/P left inguinal hernia repair Most Recent Vital Signs Temperature 37.2 C 02/15/24 16:13 Temperature Source Temporal Artery Scan 02/15/24 16:11 Pulse 76 02/15/24 16:13 Pulse Rhythm Regular 02/15/24 16:13 Pulse 69 02/15/24 15:46 Respiratory Rate 16 02/15/24 16:13 Respiratory Effort Normal 02/15/24 16:13 Respiratory Depth Normal 02/15/24 16:13 Respiratory Pattern Normal 02/15/24 16:13 Blood Pressure 144/62 H 02/15/24 16:13 Blood Pressure Mean 86 02/15/24 15:45 Pulse Oximetry 95 02/15/24 16:13 Oxygen Delivery Method Room Air 02/15/24 16:13 Oxygen Flow Rate 0 02/15/24 16:13 Pain Level 0 02/15/24 16:13 Allergies Penicillins Allergy (Mild, Verified 02/15/24 11:24) Skin Rash cefazolin Allergy (Verified 02/15/24 11:24) Skin Rash aspirin Adverse Reaction (Mild, Verified 02/15/24 11:24) GI Bleeding Active Medications Generic Name Dose Route Start Last Admin Trade Name Niurka PRN Reason Stop Dose Admin Levofloxacin 750 mg in 150 mls @ 100 mls/hr 02/15/24 15:07 02/15/24 15:45 Levaquin Premixed Bag IVPB 02/15/24 16:36 100 mls/hr NOW ONE Administration IV IV Catheter Type [Right Saline Lock Antecubital] IV Catheter Gauge [Right 18 Antecubital] Diet Orders Category Date Time Status Regular/Normal [DIET] Nutrition 02/15/24 Dinner Active Diagnostics 02/15/24 02/15/24 02/15/24 Range/Units Unknown 15:07 12:38 WBC (4.4-10.8) 10^3/uL RBC (4.36-5.78) 10^6/uL Hgb (13.5-17.5) g/dL Hct (40.0-50.0) % MCV (80-95) fL MCH (27.0-33.0) pg MCHC (32.0-36.0) % RDW (11.8-14.1) % Plt Count (130-400) 10^3/uL MPV (8.0-11.0) fL Immature Gran % % Neutrophils % % Lymphocytes % % Monocytes % % Eosinophils % % Basophils % % Nucleated RBC % (0.0-0.3) % Absolute Neutrophils (1.2-6.7) 10^3/uL Absolute Lymphocytes (1.2-3.4) 10^3/uL Absolute Monocytes (0.1-0.8) 10^3/uL Absolute Eosinophils (0.0-0.7) 10^3/uL Absolute Basophils (0.0-0.2) 10^3/uL VBG Lactate (0.6-1.4) mmol/L Sodium (136-145) mmol/L Potassium (3.5-5.1) mmol/L Chloride (98-107) mmol/L Carbon Dioxide (21.0-32.0) mmol/L Anion Gap (3-11) mmol/L BUN (7-18) mg/dL Creatinine (0.70-1.30) mg/dL Est GFR (CKD-EPI 2020) (mL/min/1.73m2) Glucose (74-106) mg/dL Calcium (8.5-10.1) mg/dL Magnesium (1.8-2.4) mg/dL Total Bilirubin (0.2-1.0) mg/dL Conjugated Bilirubin (0.0-0.2) mg/dL AST (15-37) U/L ALT (16-63) U/L Alkaline Phosphatase (46-116) U/L Ammonia (11-32) umol/L Creatine Kinase (39-308) U/L Troponin I (<or=76) ng/L Total Protein (6.4-8.2) g/dL Albumin (3.4-5.0) g/dL Lipase (16-77) U/L Procalcitonin ng/mL TSH (0.36-3.74) uIU/mL Urine Color Dark Yellow (Yellow) Urine Clarity Clear (Clear) Urine pH 5.5 (5-8) Ur Specific [place] 1.015 (1.005-1.025) Urine Protein 30 H (Neg-Trace) mg/dL Urine Ketones Trace H (Negative) mg/dL Urine Blood Small H (Negative) Urine Nitrite Negative (Negative) Urine Bilirubin Negative (Negative) Urine Urobilinogen 0.2 (Up to 0.2) mg/dL Ur Leukocyte Esterase Negative (Negative) Urine RBC 3-5 H (0-2) HPF Urine WBC Negative (0-5) HPF Ur Epithelial Cells Rare (Negative) HPF Urine Crystals Negative (Negative) HPF Urine Bacteria Negative (Negative) HPF Urine Casts 3-5 Fine Granular (Negative) LPF Urine Mucus Negative (Negative) Ur Culture Indicated? No Urine Glucose Negative (Negative) mg/dL Urine Opiates Screen Negative (Negative) Urine Methadone Screen Negative (Negative) Ur Barbiturates Screen Negative (Negative) Ur Tricyclics Screen Negative (Negative) Ur Amphetamines Screen Negative (Negative) U Benzodiazepines Scrn Negative (Negative) Urine Cocaine Screen Negative (Negative) Ur THC Screen Negative (Negative) Ethyl Alcohol (<10) mg/dL B. divergens/MO-1 PCR Babesia duncani (PCR) Babesia microti DNA PCR Lyme Disease Antibody E.chaffeensis DNA (PCR) E.ewingii/canis DNA PCR E.muris eauclairensis (PCR) Legionella Source Cancelled Urine Legionella Ag Legionella DNA (PCR) Cancelled Ur Strep pneumoniae Ag A. phagocytophilum (PCR) Blood B. miyamotoi (PCR) Add-On Test Request Pending 02/15/24 02/15/24 Range/Units 12:25 11:43 WBC 9.24 (4.4-10.8) 10^3/uL RBC 3.49 L (4.36-5.78) 10^6/uL Hgb 11.1 L (13.5-17.5) g/dL Hct 34.0 L (40.0-50.0) % MCV 97 H (80-95) fL MCH 31.8 (27.0-33.0) pg MCHC 32.6 (32.0-36.0) % RDW 12.8 (11.8-14.1) % Plt Count 129 L (130-400) 10^3/uL MPV 9.7 (8.0-11.0) fL Immature Gran % 0.5 % Neutrophils % 82.1 % Lymphocytes % 6.8 % Monocytes % 10.3 % Eosinophils % 0.0 % Basophils % 0.3 % Nucleated RBC % 0.0 (0.0-0.3) % Absolute Neutrophils 7.58 H (1.2-6.7) 10^3/uL Absolute Lymphocytes 0.63 L (1.2-3.4) 10^3/uL Absolute Monocytes 0.95 H (0.1-0.8) 10^3/uL Absolute Eosinophils 0.00 (0.0-0.7) 10^3/uL Absolute Basophils 0.03 (0.0-0.2) 10^3/uL VBG Lactate 1.4 (0.6-1.4) mmol/L Sodium 141 (136-145) mmol/L Potassium 3.8 (3.5-5.1) mmol/L Chloride 104 (98-107) mmol/L Carbon Dioxide 27.8 (21.0-32.0) mmol/L Anion Gap 9.2 (3-11) mmol/L BUN 27 H (7-18) mg/dL Creatinine 1.5 H (0.70-1.30) mg/dL Est GFR (CKD-EPI 2020) 46.77 (mL/min/1.73m2) Glucose 119 H (74-106) mg/dL Calcium 9.3 (8.5-10.1) mg/dL Magnesium 1.6 L (1.8-2.4) mg/dL Total Bilirubin 3.72 H (0.2-1.0) mg/dL Conjugated Bilirubin 1.1 H (0.0-0.2) mg/dL AST 142 H (15-37) U/L ALT 100 H (16-63) U/L Alkaline Phosphatase 127 H (46-116) U/L Ammonia < 10 L (11-32) umol/L Creatine Kinase 2627 H (39-308) U/L Troponin I 27 (<or=76) ng/L Total Protein 6.8 (6.4-8.2) g/dL Albumin 3.4 (3.4-5.0) g/dL Lipase 24 (16-77) U/L Procalcitonin 5.3 ng/mL TSH 1.14 (0.36-3.74) uIU/mL Urine Color (Yellow) Urine Clarity (Clear) Urine pH (5-8) Ur Specific [place] (1.005-1.025) Urine Protein (Neg-Trace) mg/dL Urine Ketones (Negative) mg/dL Urine Blood (Negative) Urine Nitrite (Negative) Urine Bilirubin (Negative) Urine Urobilinogen (Up to 0.2) mg/dL Ur Leukocyte Esterase (Negative) Urine RBC (0-2) HPF Urine WBC (0-5) HPF Ur Epithelial Cells (Negative) HPF Urine Crystals (Negative) HPF Urine Bacteria (Negative) HPF Urine Casts (Negative) LPF Urine Mucus (Negative) Ur Culture Indicated? Urine Glucose (Negative) mg/dL Urine Opiates Screen (Negative) Urine Methadone Screen (Negative) Ur Barbiturates Screen (Negative) Ur Tricyclics Screen (Negative) Ur Amphetamines Screen (Negative) U Benzodiazepines Scrn (Negative) Urine Cocaine Screen (Negative) Ur THC Screen (Negative) Ethyl Alcohol < 3.0 (<10) mg/dL B. divergens/MO-1 PCR Pending Babesia duncani (PCR) Pending Babesia microti DNA PCR Pending Lyme Disease Antibody Pending E.chaffeensis DNA (PCR) Pending E.ewingii/canis DNA PCR Pending E.muris eauclairensis (PCR) Pending Legionella Source Urine Legionella Ag Pending Legionella DNA (PCR) Ur Strep pneumoniae Ag Pending A. phagocytophilum (PCR) Pending Blood B. miyamotoi (PCR) Pending Add-On Test Request 02/15/24 15:39 Blood Culture - Pending Blood 02/15/24 15:33 Blood Culture - Pending Blood Intake and Output - 24 Hour Total 02/15/24 11:16 thru 02/15/24 16:13 Intake Total 1110.000 Balance 1110.000 Weight 72.2 kg Intake: IV 1110.000 Other: Urine Appearance Clear Falls Risk Assessment History of Falls Admit Due to Fall 02/15/24 16:13 Contributing Factors Impairments 02/15/24 16:13 Ambulatory Aids Independent 02/15/24 16:13 Tubes/Lines W/no contributing factors 02/15/24 16:13 Gait Evaluation W/any additional score 02/15/24 16:13 Cognition No cognitive impairment 02/15/24 16:13 Fall Total Score 58 02/15/24 16:13 Level of Risk High Risk 02/15/24 16:13 Problems (Last Reviewed 12/17/23 @ 10:29 by Alix Yang) Elevated liver function tests (Acute) [id number] kidney injury (Acute) Fall (Acute) Altered mental status, unspecified (Acute) Discharge planning issues (Acute) DVT prophylaxis (Acute) Hypothyroidism (Chronic) Pneumonia (Acute) Rhabdomyolysis (Acute) BPH w urinary obs/LUTS (Chronic) Obstructive sleep apnea (Chronic) Constipation (Chronic) v v v v v v v v v Sending and/or Receiving Nurses: Please use comment section below to note any information pertinent to the patient hand-off not included above. Information / Comments: PT arrives to [facility] via stretcher. Report received from: Anna Thomas RN
[2024-02-15] MEDS: Albuterol/Ipratropium 3 ML UPD VIAL UPD ×2 (16:45→19:56)
[2024-02-15 16:52] LABS: Lab Add On Test DONE
[2024-02-15 17:15] LABS: GGT 135 U/L (15-85)
[2024-02-15 17:26] LABS: ESR 14 mm/hr (0-20)
[2024-02-15] MEDS: Normal Saline 1,000 ML 100 ML IV (20:15)
[2024-02-15] MEDS: Polyethylene Glycol 3350 17 GM PACKET PO (20:15)
[2024-02-15] MEDS: guaiFENesin 600 MG TABCR PO (20:16)
[2024-02-15] MEDS: Tamsulosin 0.4 MG CAPCR PO (20:16)
[2024-02-15] MEDS: Mirtazapine 15 MG TAB PO (20:16)
--- NOTE | 2024-02-15 21:00 | RESPIRATORY ---
RT has seen patient during respiratory treatment and spoken for HILDA diagnosis. Pt. advised that he has stopped using home NIV device since long time like a year. Also states he doesn't use O2 as well at night. pt. seemed understanding the question that RT asked multiple time because pt. seemed little confused.
[2024-02-15 22:28] LABS: Legionella Ag Detection Urine Negative (Negative)
[2024-02-15] MEDS: Acetaminophen 325 MG TAB 650 MG PO (23:39)
[2024-02-16] VITALS (17 sets, daily range): BP systolic 120–155; BP diastolic 50–90; PULSE 80–99; RESP 2–22; TEMP 37.5–38.2; O2SAT 92–97
[2024-02-16] MEDS: Normal Saline 1,000 ML 100 ML IV ×2 (06:16→16:09)
[2024-02-16 06:20] LABS: HGB 10.6 g/dL (13.5-17.5); MCH 32.1 pg (27.0-33.0); MCHC 33.1 % (32.0-36.0); MCV 97 fL (80-95); MPV 10.1 fL (8.0-11.0); Platelet Count 114 10^3/uL (130-400); RDW 12.5 % (11.8-14.1); RDW-SD 44.5 fL; WBC 6.71 10^3/uL (4.4-10.8)
[2024-02-16] MEDS: Levothyroxine 25 MCG TAB PO (06:30)
[2024-02-16 06:36] LABS: Absolute Eosinophil Count 0.07 10^3/uL (0.0-0.7); Absolute Lymphocyte Count 0.67 10^3/uL (1.2-3.4); Absolute Monocyte Count 0.54 10^3/uL (0.1-0.8); Absolute Neutrophil Count 5.44 10^3/uL (1.2-6.7); Bands % 4 %; Diff Comment Manual Differential; RBC Morphology Normal
[2024-02-16 07:05] LABS: ALT 88 U/L (16-63); AST 115 U/L (15-37); Albumin 2.6 g/dL (3.4-5.0); Alkaline Phosphatase 112 U/L (46-116); Anion Gap 8.7 mmol/L (3-11); BUN 17 mg/dL (7-18); Bilirubin, Total 3.65 mg/dL (0.2-1.0); CO2 24.3 mmol/L (21.0-32.0); CREATININE 1.2 mg/dL (0.70-1.30); Calcium 8.6 mg/dL (8.5-10.1); Chloride 108 mmol/L (98-107); Estimated GFR 61.13 (mL/min/1.73m2); Glucose 105 mg/dL (74-106); Potassium 3.8 mmol/L (3.5-5.1); Sodium 141 mmol/L (136-145); Total Protein 5.8 g/dL (6.4-8.2)
[2024-02-16 07:08] LABS: Creatine Kinase 1770 U/L (39-308)
--- NOTE | 2024-02-16 07:13 | SUR.INTRAOP ---
This morning pt choked swallowing levothyroxine. During later drinks of water, voice sounds wet after drinking with slight coughing. Concerned for possible aspiration? Informed day shift nurse as this was happening around time of hand off.
[2024-02-16] MEDS: Polyethylene Glycol 3350 17 GM PACKET PO ×2 (08:25→20:59)
[2024-02-16] MEDS: Multivitamin w/Minerals TAB 1 TAB PO (08:26)
[2024-02-16] MEDS: guaiFENesin 600 MG TABCR PO ×2 (08:26→20:59)
[2024-02-16] MEDS: Lisinopril 2.5 MG TAB PO (08:26)
[2024-02-16] MEDS: Enoxaparin 40 MG/0.4 ML SYR SC (08:26)
[2024-02-16] MEDS: Finasteride 5 MG TAB PO (08:26)
[2024-02-16] MEDS: Pantoprazole 40 MG TABCR PO (08:26)
[2024-02-16] MEDS: Tamsulosin 0.4 MG CAPCR PO ×2 (08:26→20:59)
[2024-02-16] MEDS: Albuterol/Ipratropium 3 ML UPD VIAL UPD ×4 (08:37→21:04)
--- NOTE | 2024-02-16 09:01 | PDOC.CMIN ---
Date of service: 02/16/24 Time of Service: 09:03 Care Management Initial Assmt Initial Assessment Reason for Hospitalization: AMS, falls, pneumonia, rhabdo Functional Status/Living Situation Patient Presentation: Dawit was lying in bed when CM met with him. He was pleasant and engaged well in conversation. He stated that he feels disoriented today (like he's losing it), but he expects to feel better tomorrow. He was alert and oriented, but appeared to have some difficulty with word finding at times. He stated that he is very independent, and that he had not yet informed his niece that he is in the hospital. CM offered to contact her, but he declined, stating that he will likely call her tomorrow, or when he gets home. Per report, he will be evaluated by PT and OT, which will help direct his discharge plan of care. He stated that he would prefer to go to outpatient PT, if needed. He is not interested in SNF or HH services at this time. CM will continue to follow. Town of Residence: [facility] Resides with: Alone Natural Supports: niece, Patricia, and her , Dirk Employment Status: Retired (worked in [employer] at [employer] for over 40 yrs, then [employer] for several years ) Instrumental Activities of Daily Living (ADLs): Independent Medications Medication Management: No Issues/Barriers identified Advance Directives Advance Directives: Do you have an Advance Directive: Y 09/23/19 04:57 AD On File at [facility]: Y 09/23/19 04:57 Date Asked 12/12/21 12/12/21 20:43 AD Date Reviewed 02/15/24 02/15/24 11:36 COLST On File at [facility] COLST Date Scanned Code Status Resuscitation Status DNR/DNI Insurance Coverage/Financial Issues Insurance: [facility] [employer] supplemental Care Team Visit Care Team Role Provider Type Kai Peter NP Primary Care Provider NURSE PRACTITIONER InPatient Иван Reyes Other Providers OTHER CARLEEN Dueñas Emergency Provider [employer]IC[employer]ANS BIOMEDICAL REPAIR TECHNICIAN Barry Benitez MD Admit Provider [facility] STAFF PHYSICIAN Attending Provider Discharge Potential Discharge Needs: PT Evaluation and PCP F/U Appt Anticipated Barriers to Discharge: None Identified Patient/Family Education Needs: Review discharge instructions, discuss Ask Me Three Transportation: Private vehicle Plan: Anticipate Dawit will return home once medically cleared. He may benefit from HH services upon discharge; PT eval pending. He will be transported home via private vehicle by family. He will follow up with his PCP and discharge plan of care. CM will continue to follow. PFSH All Active Problems (Updated 02/15/24 @ 16:13 by Tran Flores NP) Elevated liver function tests (Acute) [id number] kidney injury (Acute) Fall (Acute) Altered mental status, unspecified (Acute) Discharge planning issues (Acute) DVT prophylaxis (Acute) Hypothyroidism (Chronic) Pneumonia (Acute) Rhabdomyolysis (Acute) Bile reflux gastritis (Acute) Gastroesophageal reflux disease with esophagitis without hemorrhage (Acute) Chronic anemia (Acute) Fe deficiency anemia (Acute) Diverticula of colon (Acute) Hiatal hernia with GERD (Acute) GERD (gastroesophageal reflux disease) (Chronic) Thyroid disease (Acute) BPH w urinary obs/LUTS (Chronic) Seasonal allergies (Acute) Obstructive sleep apnea (Chronic) Hyperlipidemia (Acute) Generalized anxiety disorder (Acute) Mild cognitive impairment (Acute) Hepatomegaly (Acute) Constipation (Chronic) Ambulatory dysfunction (Acute) Back pain (Acute) Anemia of chronic disease (Acute) Essential hypertension (Chronic) Constipation (Acute) PSVT (paroxysmal supraventricular tachycardia) (Acute) Medical History (Updated 02/15/24 @ 16:13 by Tran Flores, WALE) Hypotension Near syncope Palpitations Light-headed feeling Impacted cerumen, right ear Abdominal pain Neck pain Cellulitis Knee pain Impacted cerumen, bilateral Arthritis Insomnia Sigmoid diverticulosis HILDA on CPAP Transaminitis Closed head injury Dysphagia Rhabdomyolysis Secondary bacterial pneumonia Dehydration Acute kidney injury Multifocal pneumonia COVID-19 Feeling of incomplete bladder emptying Difficulty in urination Suprapubic pressure Anemia, blood loss Erythema multiforme Anemia Toxic metabolic encephalopathy Sepsis SBO (small bowel obstruction) Dehydration Ileus Acute confusion Clostridium difficile enterocolitis Vomiting Lumbar discitis MSSA bacteremia Urinary retention History of Clostridioides difficile colitis (~10/2013) 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 Casey Mixon, infectious disease, [facility], [place], [place]; completed treatment 11/20/2013; complicated by C. difficile colitis MSSA (methicillin susceptible Staphylococcus aureus) septicemia (10/09/13) in setting of ruputured appendicitis and found to have disciitis epidural abscess, [facility], [place], [place]; Dr. Casey Mixon, infectious disease BPH (benign prostatic hyperplasia) Conductive hearing loss Sensorineural hearing loss Panic anxiety syndrome Ambulatory dysfunction Back pain Gram-positive cocci bacteremia Left inguinal hernia Erectile dysfunction Surgical History (Updated 12/18/23 @ 14:29 by Sunshine Avendaño) History of esophagogastroduodenoscopy (~11/2023) H/O sinus surgery History of tonsillectomy and adenoidectomy History of bilateral cataract extraction History of cholecystectomy (~1998) S/P laparoscopic appendectomy (10/09/13) S/P left inguinal hernia repair Family History Mother No problems noted. Father No problems noted. Social History Smoking/Tobacco Use Status: Former Tobacco Use Quit Date: 05/27/75 Tobacco: How many years used: 32 Quit status: quit date established Second Hand Exposure: No Smoking risk assessment performed?: Yes Alcohol Intake: former Year quit: 1975 Drug use: Never Substance use type: does not use Housing: apartment Communication Needs: None Do you need help understanding health information?: Never Pets and animals: No Sexually active: No Do you think of yourself as: straight/heterosexual Current gender identity: male What is your relationship status?: How often do you talk on the phone with friends or family?: decline to answer How often do you get together with friends or relatives?: once per week How often do you attend druze or christianity services?: decline to answer Do you belong to any clubs or organized social groups?: no Panel score (0-1 are the most socially isolated patients): 0 What type of physical activity do you participate in: walking Alma/Alevism: Gnosticism Special alma needs: No Seatbelt use: always Drive 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 Do you feel safe at home: Yes Do you feel safe in your relationship?: No Additional Social history: lives alone SDOH(Care Management) Screening Will the Patient Participate in the Screening?: Yes Do you worry about having a steady place to live?: no Problems where you live: no known problems In the past 12 months, have you had to go without electric, gas, oil or water in your home?: no Have you or anyone in your house had to go without enough food to eat?: no Has lack of transportation kept you from medical appointments or from doing things needed for daily living?: no Has anyone in your support network made you feel unsafe for any reason?: no
--- NOTE | 2024-02-16 10:22 | PT.INIE ---
PT Notes Visit Reasons: pneumonia Inpatient Physical Therapy Evaluation Date: [02/16/2024] Referring Doctor: []Tran Flores PT Orders: PT CONSULT: Safty and Mobility Precautions: [Standard, fall risk] Patient Profile/Admitting Diagnosis: [] AMS, frequent falls, PNA, rhabdomyolysis, acute on chronic kidney disease . Willy is an 78-year-old gentleman past medical history significant for anxiety, cognitive impairment, hypertension, rhabdo, chronic kidney injury, history of elevated liver functions, hypothyroidism, pneumonia who presented to the emergency department 02/15/2024 after being encouraged by neighbors and PCP for 2 to 3-day history of multiple falls states he was generally weak and can have multiple falls and states he was unable to get himself back up due to his weakness. PMHX: []All Active Problems (Updated 02/15/24 @ 16:13 by Tran Flores, WALE) Elevated liver function tests (Acute) Audhy-lg-pplyohl kidney injury (Acute) Fall (Acute) Altered mental status, unspecified (Acute) Discharge planning issues (Acute) DVT prophylaxis (Acute) Hypothyroidism (Chronic) Pneumonia (Acute) Rhabdomyolysis (Acute) Bile reflux gastritis (Acute) Gastroesophageal reflux disease with esophagitis without hemorrhage (Acute) Chronic anemia (Acute) Fe deficiency anemia (Acute) Diverticula of colon (Acute) Hiatal hernia with GERD (Acute) GERD (gastroesophageal reflux disease) (Chronic) Thyroid disease (Acute) BPH w urinary obs/LUTS (Chronic) Seasonal allergies (Acute) Obstructive sleep apnea (Chronic) Hyperlipidemia (Acute) Generalized anxiety disorder (Acute) Mild cognitive impairment (Acute) Hepatomegaly (Acute) Constipation (Chronic) Ambulatory dysfunction (Acute) Back pain (Acute) Anemia of chronic disease (Acute) Essential hypertension (Chronic) Constipation (Acute) PSVT (paroxysmal supraventricular tachycardia) (Acute) Medical History (Updated 02/15/24 @ 16:13 by Tran Flores NP) Hypotension Near syncope Palpitations Light-headed feeling Impacted cerumen, right ear Abdominal pain Neck pain Cellulitis Knee pain Impacted cerumen, bilateral Arthritis Insomnia Sigmoid diverticulosis HILDA on CPAP Transaminitis Closed head injury Dysphagia Rhabdomyolysis Secondary bacterial pneumonia Dehydration Acute kidney injury Multifocal pneumonia COVID-19 Feeling of incomplete bladder emptying Difficulty in urination Suprapubic pressure Anemia, blood loss Erythema multiforme Anemia Toxic metabolic encephalopathy Sepsis SBO (small bowel obstruction) Dehydration Ileus Acute confusion Clostridium difficile enterocolitis Vomiting Lumbar discitis MSSA bacteremia Urinary retention History of Clostridioides difficile colitis (~10/2013) 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 Casey Mixon, infectious disease, [place], [place]; completed treatment 11/20/2013; complicated by C. difficile colitisMSSA (methicillin susceptible Staphylococcus aureus) septicemia (10/09/13) in setting of ruputured appendicitis and found to have disciitis epidural abscess, [facility], [place], [place]; Dr. Casey Mixon, infectious disease BPH (benign prostatic hyperplasia) Conductive hearing loss Sensorineural hearing loss Panic anxiety syndrome Ambulatory dysfunction Back pain Gram-positive cocci bacteremia Left inguinal hernia Erectile dysfunction Social History/Home Situation: []Difficult to determine, lives alone, in apartment does state that he gets confused and knows the falling is not good. He denies using a walker or any AD at home. Current Functional Limitations: []Frequent falls , was unable to get up. Has multiple bruising hips, knees, back Equipment Owned/DME: unknown, likely none Subjective: Pt. reports no pain. He states that he knows he is unsafe and do whatever it takes to get back home. He has word finding problems and scattered conversation but extremely pleasant, joking around. Objective: General Observation: IV in right UE, Hansen in place. Pt is in bed , cooperative and engaging with disjointed conversation and impulsive when moving. Easily distracted not focused on task. Unable to sit at edge of bed without falling backward seemingly unaware on how to support himself. Mental Status: Alert in bed, oriented to place and person, less so of time and details Pain: Denies any pain despite multiple areas of bruising, knees, hips Vital Signs: monitored by nursing staff, no SOB during our session, carrying on conversation t/o session ROM: Right Upper Extremity: WFL Left Upper Extremity: WFL Right Lower Extremity: WFL Left Lower Extremity: WFL Strength: Right Upper Extremity: WFL Left Upper Extremity: WFL Right Lower Extremity: WFL Left Lower Extremity: WFL Sensation: Denies any numbness and tingling unable to get a clear answer Bed Mobility/Transfers: Requires assistance to untangle bedcovers and to safely get to edge of bed as he tends to fall backward more of balance issue versus being able to physically move towards the edge of the bed which she is able to do as long as we prevent him from falling backwards. Supine to sit with assist for balance and managing bedding Sit to stand bed to RW major verbal cueing for hand placement, contact-guard for balance with gait belt Stand to sit RW to chair major verbal cueing for hand placement, contact-guard for balance with gait belt Gait: Ambulation with RW and assist with direction of RW and contact-guard at gait belt with verbal cueing for pacing, foot placement. Seems to have poor awareness of his surroundings particularly on the right side with bumping into doorway in his right foot getting caught outside of the RW. Able to ambulate 100+' using RW and contact-guard with managing RW by therapist without any SOB. Question awareness of right side given that he typically is hitting things on the right side with the RW and his right foot does get outside of the walker on several occasions. Balance: Static Sitting: Poor limited of with awareness that he is falling backward once he figures out how to support himself he can stay sitting Dynamic Sitting: Poor Static Standing: Poor Dynamic Standing: Poor Special Tests: Mobility Limitations Standardized Measure [facility] 6 clicks Basic Mobility Inpatient Short Form: Raw Score: 14 standardized Score: 38.1 CMS Score: 61.29 Informed Consent/Education: Patient instructed in purpose of PT consult and plan of care. Treeatment: [id number] Therapeutic Activities - (97052 x[1]): instruction in dynamic activities with one on one patient contact by the provider to improve functional performance?as follows: ? [] Verbal and tactile cueing for transfers supine to sit, repeated sit to stand assisting with hand placement for LE strengthening. Standing marching in place holding onto RW with VC to lean forward. Ambulation with RW again with major VC and control of RW x 100 feet without SOB. Assessment: Patient is a 78year old male referred to physical therapy services with the diagnosis of AMS, frequent falls, PNA, rhabdomyolysis. Patient presents with clinical signs and symptoms consistent with above diagnosis concern of AMS and frequent falls resulting in severe fall risk, as demonstrated by the following impairment level findings: Poor balance, poor spatial awareness, altered gait. It does seem that he was living alone and able to manage without AD there is a possibility that his AMS is impacting his balance and stability however at this time he is quite unsafe and at a high fall risk. Impairments are contributing to the following functional limitations: AMPAC score. Patient is assessed as a Moderate 92917 complexity based on the following: History: As above Examination: As above Presentation: Evolving Decision Making: Moderate Goals: Goals X1 week 1. Supine-Sit independent with good safety awareness 2. Sit-Supine independent with good safety awareness 3. Sit-Stand independent with good safety awareness 4. Stand-Sit independent with good safety awareness 5. Bed-Chair independent with good safety awareness 6. Chair-Bed independent with good safety awareness 7. Gait independent with or without AD as needed but with good safety awareness 8. Stairs independent with good safety awareness 9. Independent with home exercise program 10. Balance progress to at least fair with standing and good with sitting Plan of Care/Treatment Plan: 1-2x/day, 7 days/week x 1 week. Plan of care has been reviewed with the [employer] providing the service under Physical Therapy direction. Initiate Physical Therapy intervention for strengthening, bed mobility, transfers, gait, stairs, balance training, use of assistive device. DISCHARGE RECOMMENDATIONS: [] Given current medical status patient is unsafe to go home however he has good strength and has been living independently. Based on his status today I suspect he will require SNF versus LTC based on ability to participate and progress. TREATMENT CODE/TIME: 83026, [id number] 10:30-11:10 40' Please sign an return this page within 30 days if you agree with the above POC. Thank you! Physician Signature Date [facility]
[2024-02-16] MEDS: Acetaminophen 325 MG TAB 650 MG PO (10:33)
[2024-02-16] MEDS: THIAMINE 500 MG in Normal Saline 100 ML 200 MG IVPB ×2 (11:01→17:15)
--- NOTE | 2024-02-16 11:39 | PGE_ITS ---
Date of Service Date of service: 02/16/24 Time of Service: 11:39 Assessment and Plan Assessment and plan (1) Altered mental status, unspecified: Status: Acute Assessment and plan: reported by PCP and neighbors per ED provider. patient is found to be awake, alert and oriented with no focal deficits, with some evidence of cognitive impairment easily reoriented/directed. in setting of pneumonia and multiple falls. infectious encephalopathy vs post concussive. fall precautions, PT evaluation, neuro checks. High-dose thiamine added consider MRI saturday (2) Fall: Status: Acute Assessment and plan: multiple falls over past few days. fall precautions PT consultation. (3) Pneumonia: Status: Acute Assessment and plan: community acquired, multilobar, left lower, right upper does not meet sepsis criteria, hemodynamically stable with no oxygen requirements. Continue levaquin day 2/, based on presentation including encephalopathy, weakness, pneumonia with elevated LFT's, increasing suspicion for legionella. add mucinex, updrafts and I/S legionella and strep pneumo pending (4) Rhabdomyolysis: Status: Acute Assessment and plan: in the setting of multiple falls. continue IV hydration and trend CPK. avoid nephrotoxic drugs CPK 2600 on admission, down to 1700. (5) Fyqxx-lj-wyzxppn kidney injury: Status: Acute Assessment and plan: will continue IV hydration monitor kidney function closely in setting of rhabdo avoid nephrotoxic drugs, renal dose as needed. baseline 1.2-1.3, up to 1.5 on admission. (6) Elevated liver function tests: Status: Acute Assessment and plan: in setting of multiple falls and rhabdo. no obstructive process noted on CT scan has had history of similar elevations with similar presentations in rhabdo. will stop statin. avoid hepatotoxic drugs CT results: Liver: The liver shows no abnormal focal lesion. There is a subcentimeter low-density lesion along the inferior right hepatic lobe most likely representing a cyst and is unchanged. Gallbladder and biliary ducts: There has been a prior cholecystectomy. No abnormal biliary dilatation. Pancreas: The pancreas shows no mass or inflammatory process. Spleen: The spleen is not enlarged. No focal lesion. (7) BPH w urinary obs/LUTS: Status: Chronic Assessment and plan: Continue flomax and proscar while monitoring for hypotension/orthostasis. Check bladder scans if needed. Treat chronic constipation - schedule bowel regimen. (8) Hypothyroidism: Status: Chronic Assessment and plan: TSH 1.14 continue levothyroxine home dose (9) Obstructive sleep apnea: Status: Chronic (10) Constipation: Status: Chronic Assessment and plan: continue bowel regimen (11) DVT prophylaxis: Status: Acute Assessment and plan: enoxaparin daily (12) Discharge planning issues: Status: Acute Assessment and plan: DNR/DNI PT consulted discussed with DR Benitez Subjective Subjective Patient reports: denies voiding w/o difficulty Interval history since last seen: Patient with urinary retention overnight requiring Hansen placement with retention of approximately 1 L. Exam Const General: cooperative, no acute distress, frail appearing and other (poor historian) Nutritional Appearance: thin Orientation: alert and awake HENWY Head: normal to inspection Face and sinus: normal facial exam Mouth: oral mucosae normal Eyes General: appearance normal, both eyes and all related structures Neck Neck: normal visual inspection Chest Chest: normal inspection of the chest Resp Effort & Inspection: normal respiratory effort Auscultation: clear to auscultation bilaterally Cardio Rate: regular rate Rhythm: regular rhythm GI Inspection: normal to inspection Palpation: soft and nontender Auscultation: normal bowel sounds Skin General skin exam: no rashes or lesions noted and ecchymosis (various stages of healing) Trauma: other (Skin tear right forearm proximal) Neuro General: patient alert and patient awake Gait: normal gait Extrem General: normal to inspection Other: Bilateral upper and lower extremities with normal range of motion without evidence of trauma. Psych Appearance: grossly normal Affect: normal affect Objective Last Vital Signs Temp 38.2 C H 02/16/24 10:33 Pulse 95 H 02/16/24 11:32 Resp 22 02/16/24 11:32 BP 121/76 02/16/24 07:37 Pulse Ox 94 02/16/24 11:32 Laboratory Results - last 24 hr 02/15/24 02/15/24 02/15/24 11:43 12:38 15:07 WBC 9.24 RBC 3.49 L Hgb 11.1 L Hct 34.0 L MCV 97 H MCH 31.8 MCHC 32.6 RDW 12.8 Plt Count 129 L MPV 9.7 Immature Gran % 0.5 Neutrophils % 82.1 Band Neutrophils % Lymphocytes % 6.8 Monocytes % 10.3 Eosinophils % 0.0 Basophils % 0.3 Nucleated RBC % 0.0 Absolute Neutrophils 7.58 H Absolute Lymphocytes 0.63 L Absolute Monocytes 0.95 H Absolute Eosinophils 0.00 Absolute Basophils 0.03 RBC Morphology ESR 14 VBG Lactate 1.4 Sodium 141 Potassium 3.8 Chloride 104 Carbon Dioxide 27.8 Anion Gap 9.2 BUN 27 H Creatinine 1.5 H Est GFR (CKD-EPI 2020) 46.77 Glucose 119 H Calcium 9.3 Magnesium 1.6 L Total Bilirubin 3.72 H Conjugated Bilirubin 1.1 H GGT 135 H AST 142 H ALT 100 H Alkaline Phosphatase 127 H Ammonia < 10 L Creatine Kinase 2627 H Troponin I 27 Total Protein 6.8 Albumin 3.4 Lipase 24 Procalcitonin 5.3 TSH 1.14 Urine Color Dark Yellow Urine Clarity Clear Urine pH 5.5 Ur Specific [place] 1.015 Urine Protein 30 H Urine Ketones Trace H Urine Blood Small H Urine Nitrite Negative Urine Bilirubin Negative Urine Urobilinogen 0.2 Ur Leukocyte Esterase Negative Urine RBC 3-5 H Urine WBC Negative Ur Epithelial Cells Rare Urine Crystals Negative Urine Bacteria Negative Urine Casts 3-5 Fine Granular Urine Mucus Negative Ur Culture Indicated? No Urine Glucose Negative Urine Opiates Screen Negative Urine Methadone Screen Negative Ur Barbiturates Screen Negative Ur Tricyclics Screen Negative Ur Amphetamines Screen Negative U Benzodiazepines Scrn Negative Urine Cocaine Screen Negative Ur THC Screen Negative Ethyl Alcohol < 3.0 Legionella Source Cancelled Legionella DNA (PCR) Cancelled Add-On Test Request DONE 02/16/24 06:08 WBC 6.71 RBC 3.30 L Hgb 10.6 L Hct 32.0 L MCV 97 H MCH 32.1 MCHC 33.1 RDW 12.5 Plt Count 114 L MPV 10.1 Immature Gran % 0.0 Neutrophils % 77.0 Band Neutrophils % 4 Lymphocytes % 10.0 Monocytes % 8.0 Eosinophils % 1.0 Basophils % 0.0 Nucleated RBC % 0.0 Absolute Neutrophils 5.44 Absolute Lymphocytes 0.67 L Absolute Monocytes 0.54 Absolute Eosinophils 0.07 Absolute Basophils 0.00 RBC Morphology Normal ESR VBG Lactate Sodium 141 Potassium 3.8 Chloride 108 H Carbon Dioxide 24.3 Anion Gap 8.7 BUN 17 Creatinine 1.2 Est GFR (CKD-EPI 2020) 61.13 Glucose 105 Calcium 8.6 Magnesium Total Bilirubin 3.65 H Conjugated Bilirubin GGT AST 115 H ALT 88 H Alkaline Phosphatase 112 Ammonia Creatine Kinase 1770 H Troponin I Total Protein 5.8 L Albumin 2.6 L Lipase Procalcitonin TSH Urine Color Urine Clarity Urine pH Ur Specific [place] Urine Protein Urine Ketones Urine Blood Urine Nitrite Urine Bilirubin Urine Urobilinogen Ur Leukocyte Esterase Urine RBC Urine WBC Ur Epithelial Cells Urine Crystals Urine Bacteria Urine Casts Urine Mucus Ur Culture Indicated? Urine Glucose Urine Opiates Screen Urine Methadone Screen Ur Barbiturates Screen Ur Tricyclics Screen Ur Amphetamines Screen U Benzodiazepines Scrn Urine Cocaine Screen Ur THC Screen Ethyl Alcohol Legionella Source Legionella DNA (PCR) Add-On Test Request Time Spent with Patient Time Spent with Patient: 35-49 minutes Time was spent: preparing to see the patient(eg.review tests), ordering medications,tests, procedures, indepentently interpreting results and counseling the patient
[2024-02-16] MEDS: levoFLOXacin 500 MG, levoFLOXacin 250 MG 750 MG PO (14:49)
[2024-02-16] MEDS: Mirtazapine 15 MG TAB PO (20:59)
[2024-02-17] VITALS (11 sets, daily range): BP systolic 141–156; BP diastolic 61–84; PULSE 85–94; RESP 2–18; TEMP 36.8–38.6; O2SAT 90–96
--- NOTE | 2024-02-17 | DI.MRI_ITS ---
Exam(s) MR BRAIN WO EXAM: MR BRAIN WO CLINICAL HISTORY: Falls, altered mental status TECHNIQUE: Multiplanar multisequence MRI of the brain was performed. COMPARISON: MR MR BRAIN WO from 02/22/[address] BRAIN NECK CTA from 02/15/2024 FINDINGS: The examination is limited due to patient motion artifact. VENTRICLES AND EXTRA AXIAL SPACES: Normal in size and morphology for the patient's age. MIDLINE SHIFT: None. CEREBRAL PARENCHYMA: No focus of restricted diffusion to suggest acute infarct. No space-occupying le uday identified. HEMORRHAGE: None. BRAINSTEM/CEREBELLUM: Normal. CALVARIUM: Normal. VISUALIZED PARANASAL SINUSES/MASTOIDS:Clear. [place]: Normal flow void. PITUITARY GLAND: Unremarkable. OTHER FINDINGS: None. IMPRESSION: 1. Exam is limited by patient motion artifact. 2. No evidence of an acute infarct. No acute intracranial process. DATA REPOSITORY:
[2024-02-17] MEDS: Acetaminophen 325 MG TAB 650 MG PO (01:32)
[2024-02-17] MEDS: THIAMINE 500 MG in Normal Saline 100 ML 200 MG IVPB ×3 (01:33→17:58)
[2024-02-17] MEDS: Normal Saline 1,000 ML 100 ML IV (03:21)
[2024-02-17] MEDS: Levothyroxine 25 MCG TAB PO (06:26)
[2024-02-17 06:35] LABS: Abs Immature Grans 0.02 10^3/uL (0.0-0.06); Absolute Basophil Count 0.02 10^3/uL (0.0-0.2); Absolute Eosinophil Count 0.01 10^3/uL (0.0-0.7); Absolute Lymphocyte Count 0.52 10^3/uL (1.2-3.4); Absolute Monocyte Count 0.71 10^3/uL (0.1-0.8); Absolute Neutrophil Count 4.65 10^3/uL (1.2-6.7); Basophils % 0.3 %; Eosinophils % 0.2 %; HCT 27.9 % (40.0-50.0); HGB 9.3 g/dL (13.5-17.5); Immature Grans % 0.3 %; Lymphocytes % 8.8 %; MCH 32.1 pg (27.0-33.0); MCHC 33.3 % (32.0-36.0); MCV 96 fL (80-95); MPV 10.5 fL (8.0-11.0); Neutrophils % 78.4 %; Platelet Count 116 10^3/uL (130-400); RDW 12.7 % (11.8-14.1); RDW-SD 45.1 fL; WBC 5.93 10^3/uL (4.4-10.8)
[2024-02-17 07:01] LABS: ALT 96 U/L (16-63); AST 125 U/L (15-37); Albumin 2.2 g/dL (3.4-5.0); Alkaline Phosphatase 122 U/L (46-116); Anion Gap 8.2 mmol/L (3-11); BUN 14 mg/dL (7-18); Bilirubin, Total 3.26 mg/dL (0.2-1.0); CO2 23.8 mmol/L (21.0-32.0); CREATININE 1.2 mg/dL (0.70-1.30); Calcium 8.4 mg/dL (8.5-10.1); Chloride 111 mmol/L (98-107); Estimated GFR 61.13 (mL/min/1.73m2); Glucose 100 mg/dL (74-106); Potassium 3.7 mmol/L (3.5-5.1); Sodium 143 mmol/L (136-145); Total Protein 5.3 g/dL (6.4-8.2)
[2024-02-17 07:02] LABS: Creatine Kinase 1354 U/L (39-308)
[2024-02-17] MEDS: Pantoprazole 40 MG TABCR PO (07:23)
[2024-02-17] MEDS: Finasteride 5 MG TAB PO (08:13)
[2024-02-17] MEDS: Polyethylene Glycol 3350 17 GM PACKET PO ×2 (08:13→21:00)
[2024-02-17] MEDS: Lisinopril 2.5 MG TAB PO (08:13)
[2024-02-17] MEDS: Tamsulosin 0.4 MG CAPCR PO ×2 (08:13→20:59)
[2024-02-17] MEDS: guaiFENesin 600 MG TABCR PO ×2 (08:13→20:59)
[2024-02-17] MEDS: Multivitamin w/Minerals TAB 1 TAB PO (08:13)
[2024-02-17] MEDS: Enoxaparin 40 MG/0.4 ML SYR SC (08:13)
[2024-02-17] MEDS: Albuterol/Ipratropium 3 ML UPD VIAL UPD (08:18)
--- NOTE | 2024-02-17 08:47 | PGE_ITS ---
Date of Service Date of service: 02/17/24 Time of Service: 08:47 Assessment and Plan Assessment and plan (1) Altered mental status, unspecified: Status: Acute Assessment and plan: Still confused with short term memory defect-reported by PCP and neighbors per ED provider. patient is found to be awake, alert and oriented X 2-3 with no focal deficits, with some evidence of cognitive impairment easily reoriented/directed. in setting of pneumonia and multiple falls. infectious encephalopathy vs post concussive )- MRI negative fall precautions, PT evaluation, neuro checks. Continue High-dose thiamine MRI completed w/o acute findings (2) Fall: Status: Acute Assessment and plan: Multiple falls reported over past few days. fall precautions in-place PT consultation completed . (3) Pneumonia: Status: Acute Assessment and plan: CAP: multilobar, left lower, right upper blood Cx negative Not meeting sepsis criteria,still hemodynamically stable without oxygen requirements. Continue levaquin day 3/5, based on presentation including encephalopathy, weakness, pneumonia with elevated LFT's, increasing suspicion for legionella- negative Add mucinex, updrafts and I/S legionella negative and strep pneumo pending (4) Rhabdomyolysis: Status: Acute Assessment and plan: in the setting of multiple falls. continue IV hydration and trend CPK. avoid nephrotoxic drugs CPK 2600 on admission, down to 1300. (5) Bnqwc-ye-dazkfwf kidney injury: Status: Acute Assessment and plan: will continue IV hydration monitor kidney function closely in setting of rhabdo avoid nephrotoxic drugs, renal dose as needed. baseline 1.2-1.3, up to 1.5 on admission. Now baseline (6) Elevated liver function tests: Status: Acute Assessment and plan: Stable - will trend in setting of multiple falls and rhabdo. no obstructive process noted on CT scan Past history of similar elevations with similar presentations in rhabdo. Statins stopped . avoid hepatotoxic drugs CT results: Liver: The liver shows no abnormal focal lesion. There is a subcentimeter low-density lesion along the inferior right hepatic lobe most likely representing a cyst and is unchanged. Gallbladder and biliary ducts: There has been a prior cholecystectomy. No abnormal biliary dilatation. Pancreas: The pancreas shows no mass or inflammatory process. Spleen: The spleen is not enlarged. No focal lesion. (7) BPH w urinary obs/LUTS: Status: Chronic Assessment and plan: Continue flomax and proscar while monitoring for hypotension/orthostasis. Check bladder scans if needed- rodríguez in place. Treat chronic constipation - schedule bowel regimen w colace TID . (8) Hypothyroidism: Status: Chronic Assessment and plan: TSH 1.14 On levothyroxine home dose (9) Obstructive sleep apnea: Status: Chronic (10) Constipation: Status: Chronic Assessment and plan: On bowel medicine regimen (11) DVT prophylaxis: Status: Acute Assessment and plan: On enoxaparin daily (12) Discharge planning issues: Status: Acute Assessment and plan: DNR/DNI PT consulted discussed with DR Benitez Subjective Subjective Patient reports: no new complaints, tolerating liquids well, tolerating a regular diet, flatus and afebrile; denies voiding w/o difficulty, diarrhea, nausea, vomiting or shortness of breath Interval history since last seen: Indwelling urinary cath in place for urinary retention of 1l on first night Exam Narrative Exam Narrative: Constitutional The patient is sitting in chair, cooperative during the interview- difficult focussing- poor eye contact, no focal deficits noticed, no acute distress HENMT:Facial structures with normal appearance Neuro:alert and oriented to self, place, short term memory defect Resp: Unlabored breathing, clear lung bilaterally Cardio: regular rhythm, S1, S2, positive radial and pedal pulses GI: Abdomen is not distended, soft and non tender, bowel sounds are present : Negative Costovertebral angle tenderness, no bladder distension-rodríguez in place Back/spine/Pelvis: No back tenderness, normal alignment Integumentary: No skin lesions or rash Extremities: strength 5/5 to bilateral lower and upper extremities Psych: RASS 0, congruent- anxious and distress (when unable to remember ideas he wants to express) mood and normal affect. Objective Last Vital Signs Temp 37.8 C H 02/17/24 03:21 Pulse 91 H 02/17/24 08:23 Resp 18 02/17/24 08:23 BP 134/90 02/16/24 20:05 Pulse Ox 96 02/17/24 08:23 Laboratory Results - last 24 hr 02/17/24 06:05 WBC 5.93 RBC 2.90 L Hgb 9.3 L Hct 27.9 L MCV 96 H MCH 32.1 MCHC 33.3 RDW 12.7 Plt Count 116 L MPV 10.5 Immature Gran % 0.3 Neutrophils % 78.4 Lymphocytes % 8.8 Monocytes % 12.0 Eosinophils % 0.2 Basophils % 0.3 Nucleated RBC % 0.0 Absolute Neutrophils 4.65 Absolute Lymphocytes 0.52 L Absolute Monocytes 0.71 Absolute Eosinophils 0.01 Absolute Basophils 0.02 Sodium 143 Potassium 3.7 Chloride 111 H Carbon Dioxide 23.8 Anion Gap 8.2 BUN 14 Creatinine 1.2 Est GFR (CKD-EPI 2020) 61.13 Glucose 100 Calcium 8.4 L Total Bilirubin 3.26 H AST 125 H ALT 96 H Alkaline Phosphatase 122 H Creatine Kinase 1354 H Total Protein 5.3 L Albumin 2.2 L Time Spent with Patient Time Spent with Patient: >50 minutes Time was spent: preparing to see the patient(eg.review tests), obtaining and/or reviewing separately otained hiistory, ordering medications,tests, procedures, referring, communicating with other health physician assistant primary care, indepentently interpreting results, counseling the patient and care coordination
--- NOTE | 2024-02-17 09:22 | CMPROGNOTE_ITS ---
Date of service: 02/17/24 Time of Service: 09:22 Care Management Progress Note Progress Note Text Progress Note Text: Dawit was sitting up in a chair when CM met with him. He was smiling and was easy to engage in conversation but was quite confused. He was unable to remember even simple things for more than a couple of minutes and was perseverating over where he would be going from [facility]. It was not clear if he understands where he is or what the plan of care is. PT has recommended SNF for short term rehab but Dawit is not able to make an informed decision at this time. CM reached out to his niece Patricia who is his health care agent, but had.s to leave a message. Discharge Potential Discharge Needs: Other (may need SNF) Anticipated Barriers to Discharge: Bed availability Patient/Family Education Needs: Review discharge instructions, discuss Ask Me Three Transportation: Private vehicle Plan: PT has recommended SNF for short term rehab for Dawit. An initial discussion did not seem to indicate he would be opposed but Dawit is not mentally clear enough at this point to make a decision about that. CM will follow up with his niece Patricia.A call was placed but CM was unsuccessful in reaching her. Transportation will be determined by disposition. CM will follow and continue to assess for d ischarge needs. SDOH(Care Management) Screening Will the Patient Participate in the Screening?: Yes Do you worry about having a steady place to live?: no Problems where you live: no known problems In the past 12 months, have you had to go without electric, gas, oil or water in your home?: no Have you or anyone in your house had to go without enough food to eat?: no Has lack of transportation kept you from medical appointments or from doing things needed for daily living?: no Has anyone in your support network made you feel unsafe for any reason?: no
--- NOTE | 2024-02-17 10:38 | PT.INTREAT ---
PT Notes Visit Reasons: pneumonia Date: 02/17/2024 PRECAUTIONS: Standard, fall SUBJECTIVE: Pt in a little bit of distress, pt trying to explain something but is having a difficult time with word finding, pt pleasant and agreeable to participating with therapy session. Pt very confused, getting a bit agitated but was still pleasant towards this therapist. pt agreed to participating with afternoon session. OBJECTIVE: PAIN: No c/o pain BED MOBILITY/TRANSFERS Supine-sit: SBA Sit-supine: SBA Sit-stand: SBA Stand-sit: SBA GAIT Assistive Device: FWW Weight bearing: Full Assist: SBA Distance: 300' AM/ 600' PM Deviation: WBOS, Stoop forward posture, low step height and Short to normal step length, increased lateral toe out ASSESSMENT: Pt had a couple of LOB requiring CGA to recover, pt was calm but was continuously complaining about something unfortunately pt is not making enough sense to address pt concern. pt agreed to stay in recliner seat alarms, call aj, IV line, urinary catheter and bedside table situated where pt could have access when necessary. Pt much more confused today, having increased didffculty with word finding. pt able to calm down after gait training. have a couple of LOB which required CGA for recovery. PLAN: Continue to ork on balance, strengthening, endurance for safety until pt is ready for DC TREATMENT CODE/TIME: 92494b2 20mins (10:15-10:35am) [id number], [id number] 25mins (3:25-3:50pm)
[2024-02-17 10:47] LABS: Lyme Ab w Rflx to Lyme Confirm Negative (Negative)
--- NOTE | 2024-02-17 11:02 | PHA.REVIEW2 ---
Pharmacy Admission Review Admission Clinical Review Admission Pharmacy Review: Elevated liver function tests (Acute) Vryum-mv-yeoasdo kidney injury (Acute) Fall (Acute) Altered mental status, unspecified (Acute) Discharge planning issues (Acute) DVT prophylaxis (Acute) Pneumonia (Acute) Rhabdomyolysis (Acute) Penicillins Allergy (Mild, Verified 02/15/24 11:24) Skin Rash cefazolin Allergy (Verified 02/15/24 11:24) Skin Rash aspirin Adverse Reaction (Mild, Verified 02/15/24 11:24) GI Bleeding Resuscitation Status DNR/DNI Height 6 ft Weight 72.2 kg Comments Comments/Follow Ups: Watch for any renal changes and make adjustments as needed (levofloxacin) Pharmacy Admission Review Renal Dosing Renal Dosing: BUN 14 mg/dL (7-18) 02/17/24 06:05 Creatinine 1.2 mg/dL (0.70-1.30) 02/17/24 06:05 Medications needing adjustments: Reviewed (CrCl 50 mL/min, BUN decreased from 17) List of meds needing interventions: Current medications are okay. Watch for any renal changes and make adjustments as needed (levofloxacin) Anticoagulation Anticoagulation: Hgb 9.3 g/dL (13.5-17.5) L 02/17/24 06:05 Hct 27.9 % (40.0-50.0) L 02/17/24 06:05 Plt Count 116 10^3/uL (130-400) L 02/17/24 06:05 Creatinine 1.2 mg/dL (0.70-1.30) 02/17/24 06:05 DVT Prophylaxis: Reviewed (Hgb decreased from 10.6) Medications: Enoxaparin (40mg daily) Relevant Labs Relevant Labs: ESR 14 mm/hr (0-20) 02/15/24 11:43 Sodium 143 mmol/L (136-145) 02/17/24 06:05 Potassium 3.7 mmol/L (3.5-5.1) 02/17/24 06:05 Chloride 111 mmol/L (98-107) H 02/17/24 06:05 Magnesium 1.6 mg/dL (1.8-2.4) L 02/15/24 11:43 Electrolytes, C-Reactive P, ESR: Reviewed (AST/ALT increased from 115/88 to 125/96, CPK decreased from 1770 to 1354) Cardiac Review Cardiac Review: Troponin I 27 ng/L (<or=76) 02/15/24 11:43 BP, HR, EF%: Reviewed (BP 141/84 and HR 94) List meds needing interventions: Has order for lisinopril 2.5mg daily QTc Review QTc: Reviewed (418 from 02/15/24) IV to PO Switch IV Medications: Reviewed (thiamine) Home Meds Home Med List reviewed: Reviewed Relevent Home Meds Not ordered & why?: Simvastatin (on hold - rhabdomyolysis) Current Meds Current Medication Order Review: Intervened Comments: Added IV admission order set Pharmacy Antibiotic Review Relevant Labs: WBC 5.93 10^3/uL (4.4-10.8) 02/17/24 06:05 Procalcitonin 5.3 ng/mL 02/15/24 11:43 Temperature 36.8 C 0847 Temperature 37.8 C 0321 Temperature 37.8 C 0232 Temperature 38.6 C 0132 Temperature 38.6 C 0128 Microbiology 02/15/24 15:33 Blood Culture - Preliminary Blood NO GROWTH 24 HOURS 02/15/24 15:39 Blood Culture - Preliminary Blood NO GROWTH 24 HOURS Pharmacy Antibiotic Activity: C/S review and Reviewed, no change Comments: Patient is on levofloxacin 750mg PO q24h for pneumonia. Blood cultures negative. Per nursing at morning rounds, patient was confused and hallucinating overnight but improved this AM. Comments Comments/Follow Ups: Watch for any renal changes and make adjustments as needed (levofloxacin)
[2024-02-17 14:24] LABS: ANA Interpretation Negative (Negative)
[2024-02-17] MEDS: levoFLOXacin 500 MG, levoFLOXacin 250 MG 750 MG PO (15:12)
--- NOTE | 2024-02-17 16:59 | SP_ITS ---
Date of service: 02/17/24 Time of Service: 14:15 Subjective Clinical (Bedside) Swallow Evaluation Speech Language Pathology Referred by: Stephanie Keen Referral Type: Clinical Swallow Evaluation, Communication screening Reason for Referral/HPI: :Dawit Hanson is an 78 yo male adm 02/15/24 after encouragement from neighbors following 2-3 day history of altered mental status and multiple falls. He was found to have bilateral pneumonia- left lower lobe and right upper lobe. He is currently tolerating room air. Head CT and MRI of the brain negative for infarct. Dawit lives independently in an apartment building. Nursing requested BRIDGE DESIGN ENGINEER consult due to coughing after meals. PT reports difficulty communicating with patient due to his challenges with word retrieval. BRIDGE DESIGN ENGINEER IMPRESSIONS & RECOMMENDATIONS: Swallowing: Dawit participated in a non-instrumental swallowing evaluation which was essentially within functional limits without overt symptoms of oral pharyngeal dysphagia. Dawit reports longstanding vocal hoarseness, coughing after meals, and intermittent food sticking in sternal region- occasionally in throat region. He did not experience this with PO trials today. Dawit underwent an endoscopy in November 2023 which revealed large hiatal hernia and bile reflux gastritis- thus anticipate his dysphagia symptoms are esophageal in nature. If aspiration is suspected as etiology of bilateral pneumonia- consider further esophageal work-up vs outpatient GI referral for management. Communication: Of notice, Dawit demonstrated significant difficulty with communication during BRIDGE DESIGN ENGINEER evaluation. His speech was fluent at times, though frequent anomia episodes, use of paraphasias, skipping frias words, and at times, jumping thoughts. He was partially aware of errors, demonstrated decreased attention/working memory as evidenced by frequently losing his train of thought. Dawit's eyes closed often while speaking. He states his word retrieval symptoms are not new and have been ongoing for around a year. BRIDGE DESIGN ENGINEER completed screening of expressive language, with notable abnormalities appreciated (see below). Medical notes indicate question of infectious encephalopathy vs post concussion. Language and cognitive symptoms appear more pronounced than would anticipate with concussion. Consider additional cognitive assessment to assist with safe discharge planning. Consider neurology consultation. FURTHER BRIDGE DESIGN ENGINEER SERVICES: Patient to be followed while on unit. Upon Discharge, recommend BRIDGE DESIGN ENGINEER services at home health vs recommend BRIDGE DESIGN ENGINEER services at [facility] Diet Recommendations: Solids - Regular Liquids - Thin Supervision - Distant, assist with tray set up/positioning before meals Medications - With sips liquid or in food SUBJECTIVE: Patient received alert/awake, conversant, difficult to follow in conversation, agreeable to evaluation Pain Reported? None Baseline Swallow Function: History of reflux, food/pills sticking in sternal region. Occasional sticking in throat PO Trials Assessed: IDDSI 0 Thin Liquids IDDSI 7 Regular Solid- Tonio cracker Oral Mechanism Examination: Dentition is WFL. Oral mucosa is WFL Cranial Nerve Assessment: CN V ? Trigeminal Facial Sensation WNL Jaw Strength/ROM WNL ?WNL CN VII- Facial WNL labial ROM, strength, coordination. WNL lingual sensation WNL CN IX ? Glossopharyngeal WNL palatal elevation with phonation. No evidence of nasal emissions WNL CN X ? Vagus WNL Vocal quality and volume. Strong/sharp volitional cough WNL CX XII ? Hypoglossal WNL lingual ROM, strength, coordination WNL Oral Phase Findings: WFL Pharyngeal Phase Findings: WFL Some coughing noted several minutes after PO trials completed ? Miracle Swallow Protocol Results: PASS Communication Screening: Cookie Theft Picture Description: Pt shown a picture in which a young boy and girl are attempting to take cookies from a cookie jar while the father washes dishes and mother mows the lawn outside. A dog is also in the photograph, licking cookies off the floor Patient's transcript: Well the little girl is down on the bottom and the kid is going up and he's got another one holding onto him. He's a teenager, his girlfriend or his is washing the dishes. Looks like a dog he's having his food the boy is splashing his floor. It looks like, a bird, another bird, bird next. Case. Case. Des. A...cat! And she's mowing the yarn. Yeah he's got 1-2-3-4-5 dishes in there. I dont know the man part was. He's upset cause two cats going after it. [place] Naming Test Short Form: = 11/08, allowing for delayed processing x2 Reeder Passage: Several errors/word substitutions noted while reading aloud (rare for rainbow, children for different, pet for path, package For passage.) Did not correct errors while reading aloud. ASSESSMENT: Further BRIDGE DESIGN ENGINEER Services indicated. Patient to be followed while on unit. Recommendation at Discharge: BRIDGE DESIGN ENGINEER Services at [facility] vs BRIDGE DESIGN ENGINEER Services via Home Health Suggested Referrals: - If pneumonia is thought to be due to aspiration pneumonitis, consider outpatient GI referral for reflux management. - Consider neurology consult due to cognitive communication deficits Recommendations: Posture/Positioning Needs: Maintain upright position at least 30 minutes after meals Avoid meals/snacks 2-3 hours prior to reclining/sleeping Sleep with head of bed elevated to reduce likelihood of nocturnal reflux Education Provided to: Nursing, physician, patient Topics Addressed: BRIDGE DESIGN ENGINEER findings, recommendations PLAN: Frequency: 1-2x/week for 1-2 weeks Goals: Senior Project Manager Engineering Goals: Patient will participate in ongoing diagnostic treatment in cognitive commu nication to support safe discharge. Short Term Goals: Family/staff education re: cognitive communication deficits, strategies to support. BRIDGE DESIGN ENGINEER CPT Code: 23084 Clinical Swallowing Evaluation TOTAL TIME: 40 Minutes [id number]
[2024-02-17] MEDS: Docusate Sodium 100 MG CAP PO (20:59)
[2024-02-17] MEDS: Mirtazapine 15 MG TAB PO (20:59)
[2024-02-17] MEDS: Normal Saline Flush 10 ML SYR IVP (21:00)
[2024-02-18] MEDS: THIAMINE 500 MG in Normal Saline 100 ML 200 MG IVPB ×3 (02:04→17:54)
[2024-02-18] MEDS: Normal Saline 1,000 ML 100 ML IV (02:04)
[2024-02-18] MEDS: Normal Saline Flush 10 ML SYR IVP (02:05)
[2024-02-18 04:50] VITALS: BP 142/66; PULSE 96; RESP 18; TEMP 37.1; O2SAT 96
[2024-02-18] MEDS: Levothyroxine 25 MCG TAB PO (05:32)
[2024-02-18 06:55] LABS: Abs Immature Grans 0.08 10^3/uL (0.0-0.06); Absolute Basophil Count 0.02 10^3/uL (0.0-0.2); Absolute Eosinophil Count 0.01 10^3/uL (0.0-0.7); Absolute Lymphocyte Count 0.44 10^3/uL (1.2-3.4); Absolute Monocyte Count 0.92 10^3/uL (0.1-0.8); Absolute Neutrophil Count 8.92 10^3/uL (1.2-6.7); Basophils % 0.2 %; Eosinophils % 0.1 %; HCT 32.1 % (40.0-50.0); HGB 10.8 g/dL (13.5-17.5); Immature Grans % 0.8 %; Lymphocytes % 4.2 %; MCH 31.8 pg (27.0-33.0); MCHC 33.6 % (32.0-36.0); MCV 94 fL (80-95); MPV 9.8 fL (8.0-11.0); Monocytes % 8.9 %; Neutrophils % 85.8 %; Platelet Count 177 10^3/uL (130-400); RDW 12.8 % (11.8-14.1); RDW-SD 43.9 fL; WBC 10.39 10^3/uL (4.4-10.8)
[2024-02-18 07:19] LABS: Anion Gap 11.3 mmol/L (3-11); BUN 16 mg/dL (7-18); CO2 23.7 mmol/L (21.0-32.0); CREATININE 1.2 mg/dL (0.70-1.30); Calcium 8.9 mg/dL (8.5-10.1); Chloride 110 mmol/L (98-107); Creatine Kinase 773 U/L (39-308); Estimated GFR 61.13 (mL/min/1.73m2); Glucose 101 mg/dL (74-106); Potassium 3.6 mmol/L (3.5-5.1); Sodium 145 mmol/L (136-145)
[2024-02-18] MEDS: Finasteride 5 MG TAB PO (07:59)
[2024-02-18] MEDS: Enoxaparin 40 MG/0.4 ML SYR SC (07:59)
[2024-02-18] MEDS: Docusate Sodium 100 MG CAP PO ×2 (07:59→13:46)
[2024-02-18] MEDS: Multivitamin w/Minerals TAB 1 TAB PO (07:59)
[2024-02-18] MEDS: Polyethylene Glycol 3350 17 GM PACKET PO (07:59)
[2024-02-18] MEDS: Tamsulosin 0.4 MG CAPCR PO (08:00)
[2024-02-18] MEDS: guaiFENesin 600 MG TABCR PO (08:00)
[2024-02-18] MEDS: Pantoprazole 40 MG TABCR PO (08:00)
[2024-02-18] MEDS: Lisinopril 2.5 MG TAB PO (08:00)
--- NOTE | 2024-02-18 09:01 | PGE_ITS ---
Date of Service Date of service: 02/18/24 Time of Service: 09:01 Assessment and Plan Assessment and plan (1) Altered mental status, unspecified: Status: Acute Assessment and plan: Still confused with short term memory defect-reported by PCP and neighbors per ED provider. Seems to be displaying the same symptoms of agitation seen at initial presentation today patient is found to be awake, alert and oriented X 2-3 with no focal deficits, with some evidence of cognitive impairment easily reoriented/directed. in setting of pneumonia and multiple falls. infectious encephalopathy vs post concussive )- MRI negative Continue fall precautions, As needed neuro checks Continue High-dose thiamine MRI completed on 02/16 w/o acute findings Seroquel for agitation/ delirium -discontinue in the setting of dysphasia with history of parkinsonism Levaquin stopped d/t risk of AMS including delirium hallucinations neuro consult Considered Psych consult - but will evaluate effectiveness of above intervention Tick and lyme panel negative EEE ordered (2) Fall: Status: Acute Assessment and plan: Increased agitation - one to one ordered Multiple falls reported over past few days. fall precautions in-place PT consultation completed . (3) Pneumonia: Status: Acute Assessment and plan: CAP: multilobar, left lower, right upper Was on Levaquin 3/5 days- stopped as per point one Start doxycycline IV and azithromycin IV Blood Cx negative Legionella and strep pneumo negative Remains hemodynamically stable without oxygen requirements Sepsis criteria not met on admission Presentation including encephalopathy, weakness, pneumonia with elevated LFT's, On mucinex, updrafts and I/S (4) Rhabdomyolysis: Status: Acute Assessment and plan: in the setting of multiple falls. continue IV hydration- changed to LR at 75 cc/hr avoid nephrotoxic drugs CPK 2600 on admission, down to 773. CPK in AM (5) Klpro-bn-caqggnc kidney injury: Status: Acute Assessment and plan: will continue IV hydration BMP in AM avoid nephrotoxic drugs, renal dose as needed. baseline 1.2-1.3, up to 1.5 on admission. Now baseline (6) Elevated liver function tests: Status: Acute Assessment and plan: Stable - will trend in setting of multiple falls and rhabdo. no obstructive process noted on CT scan similar elevations of LFT's in the past with similar presentations in rhabdo. Off Statins for now . avoid hepatotoxic drugs Tick & Lyme panel negative CT results: Liver: The liver shows no abnormal focal lesion. There is a subcentimeter low-density lesion along the inferior right hepatic lobe most likely representing a cyst and is unchanged. Gallbladder and biliary ducts: There has been a prior cholecystectomy. No abnormal biliary dilatation. Pancreas: The pancreas shows no mass or inflammatory process. Spleen: The spleen is not enlarged. No focal lesion. (7) BPH w urinary obs/LUTS: Status: Chronic Assessment and plan: Continue flomax and proscar while monitoring for hypotension/orthostasis. Check bladder scans if needed- rodríguez in place.-voiding trial in AM Treat chronic constipation - schedule bowel regimen w colace TID . (8) Hypothyroidism: Status: Chronic Assessment and plan: TSH 1.14 Continue levothyroxine home dose (9) Obstructive sleep apnea: Status: Chronic (10) Constipation: Status: Chronic Assessment and plan: continue bowel medicine regimen (11) DVT prophylaxis: Status: Acute Assessment and plan: Continue LMWH (12) Dysphagia: Assessment and plan: Speech consult in progress: please read notes Speech modify Barium swallow NPO Might be d/t seroquel in the setting of Parkinson's- seroquel d/c PRN trazodone trial of increased agitiation Neurology consult pending (13) Discharge planning issues: Status: Acute Assessment and plan: DNR/DNI PT consulted: SNF VS LTC discussed with Elton Subjective Subjective Patient reports: no new complaints, tolerating liquids well, tolerating a regular diet and voiding w/o difficulty (indwelling urinary cath d/t retention on D 1); denies diarrhea, nausea, vomiting, shortness of breath or fever Exam Narrative Exam Narrative: Constitutional The patient is sitting in chair, cooperative during the interview- difficulty with focus- poor eye contact- closing eyes , no focal deficits noticed, no acute distress HENMT:Facial structures with normal appearance Neuro:Alert and oriented to self, place, short term memory defect still persistent Resp: Unlabored breathing, RLL fine crackles , decreased LLL Cardio: regular rhythm, S1, S2, positive radial and pedal pulses GI: Abdomen is not distended, soft and non tender, bowel sounds are present : no bladder distension-rodríguez in place - voiding trial in AM Back/spine/Pelvis: No back tenderness, normal alignment Integumentary: No skin lesions or rash Extremities: strength 5/5 to bilateral lower and upper extremities Psych: RASS 0, congruent- anxious and distress mood and normal affect. Objective Last Vital Signs Temp 37.1 C 02/18/24 04:50 Pulse 96 H 02/18/24 04:50 Resp 18 02/18/24 04:50 BP 142/66 H 02/18/24 04:50 Pulse Ox 96 02/18/24 04:50 Laboratory Results - last 24 hr 02/15/24 02/15/24 02/18/24 11:43 12:25 06:20 WBC 10.39 RBC 3.40 L Hgb 10.8 L Hct 32.1 L MCV 94 MCH 31.8 MCHC 33.6 RDW 12.8 Plt Count 177 D MPV 9.8 Immature Gran % 0.8 Neutrophils % 85.8 Lymphocytes % 4.2 Monocytes % 8.9 Eosinophils % 0.1 Basophils % 0.2 Nucleated RBC % 0.0 Absolute Neutrophils 8.92 H Absolute Lymphocytes 0.44 L Absolute Monocytes 0.92 H Absolute Eosinophils 0.01 Absolute Basophils 0.02 Sodium 145 Potassium 3.6 Chloride 110 H Carbon Dioxide 23.7 Anion Gap 11.3 H BUN 16 Creatinine 1.2 Est GFR (CKD-EPI 2020) 61.13 Glucose 101 Calcium 8.9 Creatine Kinase 773 H SANCHEZ Titer Not Applicable SANCHEZ Titer 2 Not Applicable SANCHEZ Titer 3 Not Applicable SANCHEZ Interpretation Negative Lyme Disease Antibody Negative Urine Legionella Ag Negative Time Spent with Patient Time Spent with Patient: >50 minutes Time was spent: preparing to see the patient(eg.review tests), obtaining and/or reviewing separately otained hiistory, ordering medications,tests, procedures, referring, communicating with other health primary care nurse practitioner, indepentently interpreting results, counseling the patient and care coordination
[2024-02-18] MEDS: Lactated Ringers 1,000 ML 50 ML IV (09:15)
--- NOTE | 2024-02-18 09:18 | PDOC.CMPRO ---
Date of service: 02/18/24 Time of Service: 09:18 Care Management Progress Note Progress Note Text Progress Note Text: Dawit was preparing to ambulate in the [place] with PT when CM met with him. He remains very confused and has been having visual hallucinations according to his nurse. He believes there are people in his room trying to kill him. Dawit has been on Levaquin to treat his pneumonia. There is some thought that the Levaquin may be contributing to his delusions and confusion so it may be changed. CM was able to reach Dawit's niece Patricia to discuss discharge planning options when she came to visit today. She agreed that Dawit would benefit from short term rehab prior to returning to his own apartment. Patricia stated that Dawit's confusion and hallucinations are completely out of character for him. At baseline he is alert and oriented and she has never had concerns about dementia or other cognitive issues. referrals are being sent to [facility] at Patricia's request. Dawit was also in agreement, as much as he understood. Discharge Potential Discharge Needs: PCP F/U Appt Anticipated Barriers to Discharge: Bed availability Patient/Family Education Needs: Review discharge instructions, discuss Ask Me Three Transportation: Private vehicle Plan: PT has recommended SNF for short term rehab for Dawit. An initial discussion did not seem to indicate he would be opposed but Dawit is not mentally clear enough at this point to make a decision about that. CM followed up with his niece Patricia. Referrals have been sent to [facility] and [facility], the latter being Patricia's first choice. Transportation will be determined by disposition. CM will follow and continue to assess for discharge needs. SDOH(Care Management) Screening Will the Patient Participate in the Screening?: Yes Do you worry about having a steady place to live?: no Problems where you live: no known problems In the past 12 months, have you had to go without electric, gas, oil or water in your home?: no Have you or anyone in your house had to go without enough food to eat?: no Has lack of transportation kept you from medical appointments or from doing things needed for daily living?: no Has anyone in your support network made you feel unsafe for any reason?: no
[2024-02-18 10:03] LABS: ALT 102 U/L (16-63); AST 96 U/L (15-37); Albumin 2.6 g/dL (3.4-5.0); Alkaline Phosphatase 143 U/L (46-116); Bilirubin, Direct 1.4 mg/dL (0.0-0.2); Bilirubin, Total 3.05 mg/dL (0.2-1.0); Total Protein 6.4 g/dL (6.4-8.2)
--- NOTE | 2024-02-18 10:55 | NUR.NOTE ---
When this procedure writer went in to get morning vitals/get this pT into the chair for the day, he stated that there were two other ?people? in the room. One was in a red box and the other was in an orange box. When this procedure writer was talking to him he was ignoring the questions being asked and was more focused on the two ?people? in his room. He then started to tell them they needed to get out. We got pT to the chair and there were then 4 ?people? that were in his room. This procedure writer was then asked to sit with this pT, this is what this procedure writer observed This pT was very adamant that there was 6-8 people in his room, a , , two kids, someone in green, someone in black, and the first two. He was continuously talking to the ?people?. First they were being belligerent. They then were going to go buy new cars. After sitting with this pT for about 10 minutes he started to talk, acted like he was cut off, he looked at me and said very seriously ?one of them is trying to kill us?. After he said that this procedure writer tried to get him talking about hockey and cars but he was not talkative. At this point another MANAGER ANIMAL had arrived to sit with him.Nursing Note:
[2024-02-18] MEDS: AZITHROMYCIN 500 MG in Normal Saline 250 ML 250 MG IVPB (13:18)
--- NOTE | 2024-02-18 14:29 | PTTR_ITS ---
PT Notes Visit Reasons: pneumonia Inpatient Physical Therapy Treatment Note Date: 02/18/2024 PRECAUTIONS: Activity as tolerated. Standard precautions. High fall risk. Impaired safety awareness. SUBJECTIVE: Frustrated about how much he is unable to express himself well. Did not recognize his niece when she came in. Continues to be confused, needing significant cueing with all mobility ADLs. With niece Patricia for the afternoon session. Remains confused, needed several attempts to agree to walking. Initially verbalized having not slept for the past 24 hours and needing rest and so refused to walk. Agreed to walk with Nurse Monteiro 5 minutes after. OBJECTIVE: PAIN: None expressed and verbalized Mental Status: Significant word salad. Needed maximal cueing for simple instructions and for safety. Did not recognize niece Patricia when she came into room adn sat down beside him. Disoriented as to person, place and time. Did not recognize niece Patricia. Answers when name is called. BED MOBILITY/TRANSFERS Sit-stand: minimal assist due to instability and increased postural sway to R an d posteriorly Stand-sit: minimal assist, flopped onto chair needing minimal assist for safety GAIT Assistive Device: FWW Weight bearing: FWB Assist: minimal assist Distance: 250 feet in AM and 250 fee in PM. Deviation: Genu valga, L worse than the R, increased sway to R, poor stability which becomes more pronounced during directional turns, steps asymmetric ASSESSMENT: Severe word salad and confusion required maximal cueing for today's walk session. Nurse Monteiro assisted for safety. Although patient was able to walk around the the nurse's station loop, patient required minimal assist due to instability and impulsiveness. Needed maximal cueing for sequence and safety to perform mobility ADLs duirng both sessions. PLAN: Functional mobility training as tolerated with sufficient cueing to address sequencing impairment from hepatic encephalopathy and previous TREATMENT CODE/TIME: Session 1--02742 x 28 minutes for 1 unit (11:07-11:35). Session 2-- [id number] x 46 minutes for 23 units (14:29-15:15)
[2024-02-18] MEDS: MAGNESIUM SULFATE 2 GM/50 ML BAG IVINF (14:30)
[2024-02-18] MEDS: QUEtiapine 25 MG TAB 12.5 MG PO ×3 (15:10→21:59)
[2024-02-18 15:40] LABS: Anaplasma phagocytophilum Negative (Negative); B. miyamotoi PCR Negative (Negative); Babesia divergens/MO-1 Negative (Negative); Babesia duncani Negative (Negative); Babesia microti Negative (Negative); Ehrlichia chaffeensis Negative (Negative); Ehrlichia ewingii/canis Negative (Negative); Ehrlichia muris eauclairensis Negative (Negative)
[2024-02-18 15:57] LABS: Streptococcus Pneumoniae Ag, U Negative (Negative)
[2024-02-18] MEDS: DOXYCYCLINE 100 MG in Normal Saline 100 ML IVPB (16:27)
--- NOTE | 2024-02-18 17:28 | W.SPSTP ---
Date of service: 02/18/24 Time of Service: 17:28 Subjective Attempting to contact pt earlier this date but nursing advises to try again later, he is increasingly confused, delerius, unable eat/drink, and unable to meaningfully participate in any cog/comm assessment this date which is a decline over prior reported level of function. LITIGATION ATTORNEY ASSOCIATE revisiting patient early evening to see if status improvement. Patient is confused, appears to believe he is on a beach, unable to recognize most objects, reading words that do not exist on his blanket, etc. He does not recognize cup of juice, meal, takes items and tosses them, etc. Objective/Assessment/Plan Objective Treatment Techniques & Outcomes: PO Trials: Puree x 1/2 tsp x3 (clinician gently placing spoon on lips and stating this is chocolate is the only way patient will accept/recognize) Unable to trial liquids because patient refuses/unable to accept liquid bolus via mouth. Patient with continuous coughing throughout puree trials, also talking, moving etc while eating. Inconsistent swallow reflux, appears with very poor sensorimotor awareness. Longterm Goals: Patient will participate in ongoing diagnostic treatment in dysphagia and cognitive communication to support safe discharge. Short Term Goals: Family/staff education re: cognitive communication deficits, strategies to support. Patient will safely tolerate least restrictive diet for adequate nutrition. Assessment Patient appears with acute cognitive dysphagia as result of mental status changes in last 24 hours and not safe for PO intake at this time. Recommend NPO status, LITIGATION ATTORNEY ASSOCIATE will re-evaluate tomorrow mid-day. Recommendations Diet: NPO Other: Ice chips ok if significant mental status improvement, and patient is able to tolerate oral care prior to trials. Total Time Spent: 15 min
[2024-02-18] MEDS: Mirtazapine 15 MG TAB PO (19:18)
[2024-02-18 19:38] VITALS: BP 176/62; PULSE 88; RESP 18; TEMP 37.1; O2SAT 96
[2024-02-18 23:25] VITALS: BP 164/71; PULSE 100; RESP 18; TEMP 36.8; O2SAT 88
[2024-02-18 23:37] VITALS: O2SAT 92
[2024-02-19] MEDS: THIAMINE 500 MG in Normal Saline 100 ML 200 MG IVPB (01:03)
[2024-02-19] MEDS: DOXYCYCLINE 100 MG in Normal Saline 100 ML IVPB ×2 (04:26→17:41)
[2024-02-19 07:46] VITALS: BP 146/82; PULSE 85; RESP 20; TEMP 36.8; O2SAT 96
[2024-02-19 08:47] VITALS: O2SAT 93
--- NOTE | 2024-02-19 10:43 | PT.INTREAT ---
PT Notes Visit Reasons: pneumonia Inpatient Physical Therapy Treatment Note Date: 02/18/2024 PRECAUTIONS: Activity as tolerated. Standard precautions. High fall risk. Impaired safety awareness. SUBJECTIVE: Much improved and a lot calmer today. Only worry is his bills and his house rent getting paid. Readily recognized vidal Pelayo when she came in towards the end of the PT session. Much more agreeable this morning. OBJECTIVE: PAIN: None expressed and verbalized Mental Status: Speech now more accurate, relevant, and appropriate. Needed less cueing for simple instructions and for safety compared to yesterday. recognized vidal pelayo when she came in at end of session. BED MOBILITY/TRANSFERS Sit-stand: contact guard assist due to instability and increased postural sway to R and posteriorly Stand-sit:contact guard assist, mor controlled descent with cueing GAIT Assistive Device: FWW Weight bearing: FWB Assist: minimal assist Distance: 250 feet Deviation: Genu valga, L worse than the R, less sway to R noted, gait stability improved but minimal assistance still needed during directional turns, steps asymmetric THERA EX: Moderate verbal, tactile and visual cueing for accuracy of movements to increase core strength and trunk mobility Trunk leaning x 10 2 sets while pulling on end of armrests R knee to L shoulder x 10 L knee to R shoulder x 10 ASSESSMENT: Cognitive level and speech clarity/relevance much improved during this morning's session. Ambulation skills more stable, less shaky and more purposeful, requring lesser cueing compared to yesterday. Level of safety still a concern and patient still needed contact guard assist to minimal assist with wheelchair follow and IV pole management. Cueing still needed for task sequence and accuracy. No LOB. Given 1 L of oxygen via NC as of this morning. PLAN: Continue with BID treatments for functional mobility training as tolerated with sufficient cueing to address sequencing impairment from hepatic encephalopathy and co-morbidities. TREATMENT CODE/TIME: 61120 x 20 for 1 unit, 75281 x 14 minutes for 1 unit (10:43-11:17).
[2024-02-19] MEDS: Enoxaparin 40 MG/0.4 ML SYR SC (10:46)
--- NOTE | 2024-02-19 11:11 | CMPROGNOTE_ITS ---
Date of service: 02/19/24 Time of Service: 11:11 Care Management Progress Note Progress Note Text Progress Note Text: Dawit was sitting up in a chair visiting with 2 ladies that are neighbors in his apartment building when CM met with him. He was noticeably less confused today and was able to inform CM that he was really off yesterday. He seemed appropriate when conversing with his friend and stated that he is feeling much better. Dawit was able to ambulate 250 feet with PT with his walker today and was less shaky. Dawit's oxygen saturation levels dropped last evening requiring him to have supplemental oxygen at 1-3 L/gary , however he remains afebrile and his vital signs are stable. CM awaiting responses from the SNFs where referrals were sent ([facility] and [facility]). Discharge Potential Discharge Needs: Other (potential SNF for short term rehab) Anticipated Barriers to Discharge: None Identified Patient/Family Education Needs: Review discharge instructions, discuss Ask Me Three Transportation: Private vehicle Plan: PT has recommended SNF for short term rehab for Dawit. An initial discussion did not seem to indicate he would be opposed but Dawit is not mentally clear enough at this point to make a decision about that. CM followed up with his niece Patricia. Referrals have been sent to [facility] and [facility], the latter being Patricia's first choice. Transportation will be determined by disposition. CM will follow and continue to assess for discharge needs. SDOH(Care Management) Screening Will the Patient Participate in the Screening?: Yes Do you worry about having a steady place to live?: no Problems where you live: no known problems In the past 12 months, have you had to go without electric, gas, oil or water in your home?: no Have you or anyone in your house had to go without enough food to eat?: no Has lack of transportation kept you from medical appointments or from doing things needed for daily living?: no Has anyone in your support network made you feel unsafe for any reason?: no
--- NOTE | 2024-02-19 11:43 | W.SPSTP ---
Date of service: 02/19/24 Time of Service: 11:43 Subjective Patient received in his bed, controls adjusted to near 90 degrees for PO trials. Nursing reporting oral care recently completed. Patient is oriented to month, year, place ([facility]) this date and follows along with conversation. Some tangential though processes evident but much less confused and not delirious at time of visit as compared to yesterday. Per nursing, patient was unable to swallow his secretions and was requiring yankauer suction to clear earlier this date. Patient now requiring 1L O2 via NC. Also noting voice is aphonic at times, voice will cut out for several words at a time and cut back in. Patient reports this is not longstanding, but was happening for a while several months ago, then went away. He states that the voice changes are back since his recent fall. Objective/Assessment/Plan Objective Treatment Techniques & Outcomes: Certified Home Health Aide Goals: Patient will participate in ongoing diagnostic treatment in dysphagia and cognitive communication to support safe discharge. Short Term Goals: Family/staff education re: cognitive communication deficits, strategies to support. Patient will safely tolerate least restrictive diet for adequate nutrition. PO Trials: Ice chips via tsp x3 Sip water (thin L) via 1/2 tsp x 2 Sip mildly thick Liquid via 1/2 tsp x3 Puree via 1/2 tsp x2 Oral phase: WFL but impulsive, frequently attempting to converse prior to initiating swallow. No oral residue. No anterior loss. Pharyngeal Phase: Hyo-laryngeal elevation is variable, sometimes minimal and sometimes good elevation, but sluggish. Suspect delayed onset of pharyngeal swallow. Cough is consistent with thin liquids via tsp. Cough is intermittent with puree and mildly thick. Pt is stimulable to cues for 3 second oral hold, and cues for Hard and fast swallow. Assessment Patient appears with some improving swallow initiation over yesterday, but suspect some difficulty with delayed/inconsistent timing initiation and airway protection, possible discoordination between breathing and swallowing. Patient now requiring 1L O2 via NC. He appears with some improvement in swallow coordination and initiation this date which mirror improvements in mental status, but continues with inconsistent timing and initiation of swallow, with frequent cough especially for thin liquids and even with ice chips. Cough was absent prior to initiating PO trials. Recommend to continue NPO status and complete MBSS later this date for objective instrumental swallow evaluation. Recommend no PO meds at this time, if meds must be given orally, recommend crushed in puree or liquid formulations until MBSS completed and updated recommendations are given. Patient will benefit from further evaluation of voice/speech as well as cognitive/communication once MBSS is complete. FURTHER PASTE WORKER SERVICES: Patient to be followed while on unit. Upon Discharge, recommend PASTE WORKER services at home health vs recommend PASTE WORKER services at [facility] Plan Plan: 3-5x weekly for 1-2 wks. MBSS this afternoon confirmed with Radiologist. Recommendations Diet: NPO Total Time Spent: 30m (10:15-10:45)
--- NOTE | 2024-02-19 12:56 | NUR.NOTE ---
Nursing Note: Pt is having a modified speech barium swallow per ST, discussed with provider, who ok'd holding all meds until after the evaluation, for safety. No new orders, provider did not want to cahnge any meds to IV.
--- NOTE | 2024-02-19 15:23 | PTTR_ITS ---
PT Notes Visit Reasons: pneumonia Inpatient Physical Therapy Treatment Note [facility] Date: 02-19-2024 PRECAUTIONS:Standard, High fall risk,IMPULSIVE, rodríguez catheter, oxygen 1L/Min continuous via NC, IV infusing RUE SUBJECTIVE: Pt stating he feels better today. OBJECTIVE: Pt seated in chair calm after having session of music therapy with the harpist. He was cooperative and motivated to attempt walking again. Pt attempting to self rise prior to therapist having gait belt , oxygen and catheter but was not agitated when instructed to stay seated while this PT secured all items. ? Therapeutic Activities ([id number]): Direct one-on-one instruction in dynamic activities to improve functional performance. ? Sit-stand: CGA x 3 trials then min A to sustain at FWW d/t retropulsion to right ? Stand-sit: CGA x 3 trials with cue to slowly lower to chair ? Chair-Chair : Step turn transfer with FWW min assist for trunk stability due to excessive postural sway Provided skilled cues and instruction on performance and technique throughout. ASSESSMENT:?Patient continues to demonstrate impulsive quick movements which exacerbate postural instability and increased risk for falls. Patient continues to demonstrate decreased motor control, retropulsion during sit to stand with noted excessive pelvic thrust forward resulting in over correction of trunk posteriorly to the right and increased weightbearing through heels with toes coming off floor. Patient may benefit from foot wear other than nonskid socks to improve kinesthetic awareness. Primary PT Zuri to assess further as indicated. Treatment session shortened by need to attend [facility]. PLAN: Continue with BID treatments for functional mobility training as tolerated with sufficient cueing to address sequencing impairment from hepatic encephalopathy and co-morbidities. TREATMENT CODE/TIME: 18180 x 10 minutes for 1 unit/1501?1511 DISCHARGE RECOMMENDATION: SNF for short-term rehab
[2024-02-19] MEDS: Barium Sulfate 40% W/V 1500 CPS 250 ML BTL 10 ML PO (15:25)
[2024-02-19] MEDS: Barium Sulfate 40% W/V 240 ML BTL 20 ML PO (15:25)
[2024-02-19] MEDS: Barium Sulfate 81% w/w for Oral Suspension 148 GM BTL 40 GM PO (15:26)
[2024-02-19] MEDS: Barium Sulfate Oral Paste 40% W/V 230 ML TUBE 15 ML PO (15:27)
--- NOTE | 2024-02-19 15:30 | DI.RAD_ITS ---
Exam(s) RF MODIFIED SPEECH BA SWALLOW TECHNIQUE: Modified barium swallow was performed in conjunction with speech pathology. CONTRAST MATERIAL: Oral barium contrast was administered. COMPARISON: No exams were available for comparison FINDINGS: Note that this is not a dedicated esophagram, distal esophagus not evaluated. Note is made of rever arsen of the normal cervical lordosis. There is fusion of the C3 and C4 vertebral bodies. Moderately severe degenerative changes are noted in the cervical spine. Aspiration occurred with thin liquids, thick liquids and barium pudding. Speech pathology report to follow. IMPRESSION: Aspiration occurred during the examination with thin liquids, thick liquids and barium pudding. RADIATION DOSE DELIVERED: alexi Peacock=10.8 mGy
--- NOTE | 2024-02-19 15:36 | NUR.NOTE ---
Nursing Note: Pt brought back to his room by Speech Therapy, who will speak to the provider about the test results of the modified barium swallow.
[2024-02-19 15:56] VITALS: BP 142/74; PULSE 76; RESP 18; TEMP 37.1; O2SAT 94
[2024-02-19] MEDS: AZITHROMYCIN 500 MG in Normal Saline 250 ML 250 MG IVPB (16:04)
--- NOTE | 2024-02-19 16:08 | ST.MBS ---
Date of Service Date of service: 02/19/24 Time of Service: 16:08 Modified Barium Swallow Study Findings: Videofluoroscopic Swallowing Evaluation / Modified Barium Swallow Study (VFSE/MBSS) Speech Language Pathology Report Patient referred for MBSS from Stephanie Keen given new onset s/sx aspiration and NPO status per [employer] recommendations based on bedside swallow evaluation. HPI: Patient is an 78 y/o M with hx GERD, HILDA, MCI, who was admitted to [facility] following 2-3 day hx of altered mental status and multiple falls. Found with rhabdoyolysis, acute on chronic kidney injury, as well as bilateral pneumonia with negative head CT and MRI. Patient was also admitted to [facility] in November 2021 with concerns related to rapid onset dysphagia to pills as well as weakness and pneumonia in setting of COVID+ status. At that time he was evaluated by [employer] and placed on a puree & thick liquids diet. He was discharged on Thin liquids and Soft/Bite size with recommendations for home health [employer] services. There is also record of throat and voice issues reported to surgery at EGD visit in November 2023, which were thought to be related to GERD. This hospitalization, nursing reported coughing after meals and PT reported difficulty with word retrieval prior to initial [employer] swallow evaluation. Swallow function at initial clinical bedside swallow evaluation was judged to be within normal limits and without overt s/sx aspiration. At that time Dawit reported some longstanding vocal hoarseness, coughing after meals, and intermittent sensation of esophageal stasis. He had endoscopy November 2023 which revealed a large hiatal hernia and bile reflux gastritis. Given these factors, it was recommended to consider further esophageal workup or outpatient GI referral. At that time [employer]PER[employer] reported significant communication challenges including frequent anomia, paraphasias, skipping frias words, and jumping thoughts. Dawit stated these challenges have been occurring for about a year. [employer] had hoped to complete further cognitive-communication evaluation the following day, but this was not possible due to an acute downturn in mental status on 02/17, with delerium hallucinations and a sharp decline in swallow function. [employer]PER[employer] instead focused on repeat swallow evaluation and patient was made NPO due to profound AMS and increased s/sx aspiration with puree trials. Earlier this date, patient was revisited by [employer] and found with significant improvement in mental status. Partially oriented, and better able to follow along with a conversation, though still confused at times and needing redirection. Also noting speech is aphonic at times, appearing with phonation cutting out for multiple words of utterance and then coming back. It is unclear if this is due to poor respiratory support/coordination vs laryngeal anatomy/physiology, or some sort of involuntary motor process. [employer]PER[employer] recommending further speech subsystem assessment as well as cognitive and linguistic. It is unclear if this is baseline speech pattern or new onset in last several days. OBJECTIVE: Videofluoroscopic Swallow Evaluation (VFSE/MBSS) was conducted in the lateral projection by Speech-Language Pathologist, in collaboration with Radiologist, to evaluate oropharyngeal swallow function. Anatomic view under fluoroscopy: cervical spinal changes - see radiologist report for more info. PO barium contrast trials: Oral barium water soluble contrast was administered as follows: IDDSI Level 0 Varibar thin liquid (40% w/v) IDDSI Level 2 Varibar nectar thick/mildly thick liquid (40% w/v) IDDSI Level 3 Varibar thin honey/liquidised/moderately-thick (40% w/v) IDDSI Level 4 Varibar pudding/pureed/extremely thick (40% w/v) PHYSIOLOGIC FINDINGS Oral Phase 1 Lip Closure: 0-No labial escape 2 Tongue Control: 0- Cohesive bolus between tongue to palatal seal 3 Bolus Preparation/Mastication: n/a - withheld solid trials due to safety concerns 4 Bolus Transport/Lingual Motion: 3- Repetitive/disorganized tongue motion 5 Oral residue: 1- Trace residue lining oral structures Location: tongue 6 Initiation of pharyngeal swallow:? 3- Bolus head in pyriform sinus Pharyngeal Phase 7 Velar Elevation: 0- No bolus between soft palate and pharyngeal wall 8 Laryngeal Elevation:? 1- Partial superior movement of thyroid cartilage with partial approximation of arytenoids to epiglottic petiole vs 2- Minimal superior movement of thyroid cartilage with minimal approximation of arytenoids to epiglottic petiole 9 Anterior Hyoid Excursion: 2- None to minimal anterior movement 10 Epiglottic Movement:? 2- Absent/No inversion 11 Laryngeal Vestibule Closure: 1- Incomplete; narrow column of air/contrast in laryngeal vestibule vs 2- None; wide column of air/contrast in laryngeal vestibule Penetration occurs during & after initial swallow onset from current bolus as well as pharyngeal stasis 12 Pharyngeal Stripping Wave:? 1- Present; diminished 13 Pharyngeal Contraction: DNT; lack of AP view 14 PES/UES Opening:? 2- Minimal distension and minimal duration; marked obstruction of flow vs 3- No distension with total obstruction of flow 15 Tongue Base Retraction: 2- Narrow column of contrast between tongue base and posterior pharyngeal wall vs 3- Wide column of contrast between tongue base and posterior pharyngeal wall 16 Pharyngeal residue:? 3-? Majority of residue within or on pharyngeal structures vs 4- Minimal to no pharyngel clearance Location: Valleculae, pyriforms primary, Pharyngeal wall, aryepiglottic folds secondary Nancy Pharyngeal Residue Severity Rating Scale (YPRS) (Kaushal, et al, 2015) Vallecula Residue Severity V Severe >50% Filled to epiglottic rim Pyriform Sinus Residue Severity V Severe >50% Filled to aryepiglottic fold] Esophageal Phase DNT; lack of AP view (position restrictions/fall risk) NOTE: This study was performed for interpretation only of the oropharyngeal and pharyngoesophageal domains of swallowing. It is not intended to diagnose any other radiologic abnormalities or substitute for a formal esophagram study. Overall 8-Point Penetration-Aspiration Scale (PAS) (Rosenbek, et al, 1996) Thin Liquid: 8 (LARGELY FROM PYRIFORM SINUS RESIDUE SPILL-OVER RESULTING IN ASPIRATION DRIPPING DOWN POSTERIOR WALL OF TRACHEA) [place] Thick Liquid: 8 (MICRO ASPIRATION FROM VOCAL FOLD RESIDUE) Honey Thick Liquid: 6 - REPEAT RE-ASPIRATION FROM VOCAL FOLD RESIDUE 1 - No material enters the airway. 2 - Material enters the airway, remains above the vocal folds, and is ejected? from the airway. 3 - Material enters the airway, remains above the vocal folds, and is not? ejected from the airway. 4 - Material enters the airway, contacts the vocal folds, and is ejected from the? airway. 5 - Material enters the airway, contacts the vocal folds, and is not ejected from? the airway. 6 - Material enters the airway, passes below the vocal folds, and is ejected into? the larynx or out of the airway. 7 - Material enters the airway, passes below the vocal folds, and is not ejected? from the trachea despite effort. 8 - Material enters the airway, passes below the vocal folds, and no effort is? made to eject. Clinical Indicator(s) of Prandial/Postprandial Aspiration: Cough VS None Note: - Above score represents swallowing events without application of compensatory techniques - Breaking of MBSimP protocol for current study likely under-grades above safety impairment Trialed Compensatory Swallow Strategies & Outcome: Postures Head Turn/Rotation to LEFT - unsuccessful Maneuvers 3-second Preparatory Set - no improvement Volitional Cough - successful but often followed by repeat aspiration of residue Secondary saliva swallow x2-3- improves but does not eliminate pharyngeal residue Bolus Modifications Increased Viscosity - successful to reduce degree of aspiration Dysphagia Outcome and Severity Scale (EVERARDO) LEVEL 1 - Nonoral nutrition necessary - Severe dysphagia; NPO, unable to tolerate any PO safely IMPRESSIONS: Severe to profound oral pharyngeal dysphagia with possible esophageal component (not visualized on exam this date), likely acute on chronic; dysphagia etiology unknown, but given degree of impaired pharyngeal movement despite effortful swallow by patient, strongly encourage workup for neuro-degenerative process. Current presentation may also be an exacerbation of chronic dysphagia in setting of pneumonia and AMS, though mental status is improving. Swallow safety is impaired; swallow efficiency is impaired. Swallow impairment is characterized by disorganized oral transit, significantly reduced anterior hyoid motion and reduced but variable superior laryngeal movement resulting in lack of epiglottic inversion and significantly limited UES distension. As a result patient is at risk of aspiration across all textures/consistencies due to significant pharyngeal residue from reduced clearance, which spills into laryngeal vestibule after the swallow. Patient appears to be at high risk for potential aspiration PNA, pulmonary compromise and high for malnutrition, high risk for dehydration. Non-oral nutrition may be indicated if in line with goals. Swallow prognosis is guarded given age, unknown etiology, and severity and pending patient/caregiver training in risk management as outlined. Patient appears to be a good candidate for behavioral swallow rehabilitation. PLAN: [employer] to follow 3-5x weekly, recommend SNF with [employer] services upon discharge pending goals of care Diet recommendation: IDDSI Level Solids: N/A - NPO Liquids: N/A - NPO Ice chips or sips liquid for comfort/swallow stimulation: 1/2 tsp at a time, 4-5 trials at a time every 3-4 hrs after oral care. Risk Management: Thorough oral hygiene Q3-4 hrs Specialist referrals: RD, Neurology Follow-up exam: PRN
[2024-02-19 16:28] VITALS: O2SAT 94
[2024-02-19] MEDS: Normal Saline 500 ML 30 ML IV (17:40)
[2024-02-19 19:12] LABS: Anion Gap 8.8 mmol/L (3-11); BUN 20 mg/dL (7-18); CO2 23.2 mmol/L (21.0-32.0); Calcium 8.8 mg/dL (8.5-10.1); Chloride 110 mmol/L (98-107); Estimated GFR 76.08 (mL/min/1.73m2); Glucose 83 mg/dL (74-106); Potassium 3.5 mmol/L (3.5-5.1); Sodium 142 mmol/L (136-145)
--- NOTE | 2024-02-19 20:00 | NUR.NOTE ---
Nursing Note: Spoke with Dr. Hurst to clarify NPO orders, per MD do not give pts PO meds.
[2024-02-19] MEDS: Lactated Ringers 1,000 ML 75 ML IV (21:08)
[2024-02-20] MEDS: DOXYCYCLINE 100 MG in Normal Saline 100 ML IVPB ×2 (04:26→16:25)
[2024-02-20 04:47] VITALS: BP 139/57; PULSE 75; RESP 18; TEMP 37; O2SAT 95
[2024-02-20 06:36] LABS: Abs Immature Grans 0.18 10^3/uL (0.0-0.06); Absolute Basophil Count 0.03 10^3/uL (0.0-0.2); Absolute Eosinophil Count 0.02 10^3/uL (0.0-0.7); Absolute Lymphocyte Count 0.72 10^3/uL (1.2-3.4); Absolute Monocyte Count 0.84 10^3/uL (0.1-0.8); Absolute Neutrophil Count 6.44 10^3/uL (1.2-6.7); Basophils % 0.4 %; Eosinophils % 0.2 %; HCT 30.3 % (40.0-50.0); HGB 10.1 g/dL (13.5-17.5); Immature Grans % 2.2 %; Lymphocytes % 8.7 %; MCH 31.8 pg (27.0-33.0); MCHC 33.3 % (32.0-36.0); MCV 95 fL (80-95); Monocytes % 10.2 %; Neutrophils % 78.3 %; RBC 3.18 10^6/uL (4.36-5.78); RDW 13.3 % (11.8-14.1); RDW-SD 46.9 fL; WBC 8.23 10^3/uL (4.4-10.8)
[2024-02-20 06:56] LABS: BUN 20 mg/dL (7-18); Calcium 9.1 mg/dL (8.5-10.1); Chloride 111 mmol/L (98-107); Creatine Kinase 136 U/L (39-308); Estimated GFR 76.08 (mL/min/1.73m2); Glucose 79 mg/dL (74-106); Potassium 3.6 mmol/L (3.5-5.1); Sodium 143 mmol/L (136-145)
[2024-02-20 06:58] LABS: Diff Comment Diff Reviewed; RBC Morphology Normal
[2024-02-20 08:05] VITALS: BP 143/60; PULSE 82; RESP 19; TEMP 36.2; O2SAT 92
[2024-02-20] MEDS: Enoxaparin 40 MG/0.4 ML SYR SC (08:27)
--- NOTE | 2024-02-20 09:27 | W.PM.PROGNOT ---
Date of Service Date of service: 02/20/24 Time of Service: Assessment and Plan Assessment and plan (1) Altered mental status, unspecified: Status: Acute Assessment and plan: Improving confusion -short term memory defect-reported by PCP and neighbors per ED provider. Seems to be displaying the same symptoms of agitation seen at initial presentation today patient is found to be awake, alert and oriented X 2 with no focal deficits, with some evidence of cognitive impairment easier to be reoriented/directed today . MRI negative Continue fall precautions, As needed neuro checks Continue High-dose thiamine MRI completed on 02/16 w/o acute findings Seroquel for agitation/ delirium -discontinue on 02/18 in the setting of dysphasia with history of parkinsonism Initially on Levaquin but stopped d/t risk of AMS including delirium hallucinations Tele-neuro consult - recommended transfer - [facility] [place] declined d/t capacity Considering Psych consult - but will evaluate effectiveness of above intervention Tick and lyme panel negative EEE ordered and pending (2) Fall: Status: Acute Assessment and plan: Increased agitation - resolved Multiple falls reported fall precautions in-place PT consultation in progress Considering wound consult (3) Pneumonia: Status: Acute Assessment and plan: CAP: multilobar, left lower, right upper Continue doxycycline IV and azithromycin IV Blood Cx negative Legionella and strep pneumo negative No oxygen requirements Presentation including encephalopathy, weakness, pneumonia with elevated LFT's, On mucinex, updrafts and I/S (4) Rhabdomyolysis: Status: Acute Assessment and plan: Resolved (5) Eezwk-vc-oczbdwg kidney injury: Status: Acute Assessment and plan: Resolved (6) Elevated liver function tests: Status: Acute Assessment and plan: Improving in setting of multiple falls and rhabdo. no obstructive process noted on CT scan similar elevations of LFT's in the past with similar presentations in rhabdo. Off Statins for now . avoid hepatotoxic drugs Tick & Lyme panel negative CT results: Liver: The liver shows no abnormal focal lesion. There is a subcentimeter low-density lesion along the inferior right hepatic lobe most likely representing a cyst and is unchanged. Gallbladder and biliary ducts: There has been a prior cholecystectomy. No abnormal biliary dilatation. Pancreas: The pancreas shows no mass or inflammatory process. Spleen: The spleen is not enlarged. No focal lesion. (7) BPH w urinary obs/LUTS: Status: Chronic Assessment and plan: Continue flomax and proscar when able to take oral while monitoring for hypotension/orthostasis. Rodríguez in place.-voiding trial delayed Treat chronic constipation - continue schedule bowel regimen w colace TID . (8) Hypothyroidism: Status: Chronic Assessment and plan: TSH 1.14 On levothyroxine (9) Constipation: Status: Chronic Assessment and plan: continue bowel medicine regimen (10) DVT prophylaxis: Status: Acute Assessment and plan: Continue LMWH (11) Dysphagia: Assessment and plan: Speech consult in progress: please read notes Speech modify Barium swallow- NPO Might be d/t seroquel in the setting of Parkinsonism- seroquel d/c PRN trazodone trial of increased agitiation- NPO for now Tele- Neurology consult with recommendation for transfer- No bed at [facility] [place] [facility] ENT consult Speech f/u in AM (12) Discharge planning issues: Status: Acute Assessment and plan: DNR/DNI PT consulted: SNF VS LTC discussed with [place] Subjective Subjective Patient reports: no new complaints, voiding w/o difficulty and bowel movement; denies tolerating liquids well, tolerating a regular diet, diarrhea, nausea, vomiting, shortness of breath or fever Exam Narrative Exam Narrative: Constitutional The patient is sitting in chair, cooperative during the interview- difficulty with focus- poor eye contact- closing eyes , no focal deficits noticed, no acute distress HENMT:Facial structures with normal appearance Neuro:Alert and oriented to self, place, short term memory defect still persistent - less flight of ideas Resp: Unlabored breathing, CTAB Cardio: regular rhythm, S1, S2, positive radial and pedal pulses GI: Abdomen is not distended, soft and non tender, bowel sounds are present : no bladder distension-rodríguez in place - voiding trial delayed Back/spine/Pelvis: No back tenderness, normal alignment Integumentary: No skin lesions or rash Extremities: strength 5/5 to bilateral lower and upper extremities Psych: RASS 0, congruent- anxious and distress mood and normal affect. Objective Last Vital Signs Temp 36.2 C L 02/20/24 08:05 Pulse 82 02/20/24 08:05 Resp 19 02/20/24 08:05 BP 143/60 H 02/20/24 08:05 Pulse Ox 92 02/20/24 08:05 Laboratory Results - last 24 hr 02/19/24 02/20/24 18:50 06:10 WBC 8.23 RBC 3.18 L Hgb 10.1 L Hct 30.3 L MCV 95 MCH 31.8 MCHC 33.3 RDW 13.3 Plt Count MPV Immature Gran % 2.2 Neutrophils % 78.3 Lymphocytes % 8.7 Monocytes % 10.2 Eosinophils % 0.2 Basophils % 0.4 Nucleated RBC % 0.0 Absolute Neutrophils 6.44 Absolute Lymphocytes 0.72 L Absolute Monocytes 0.84 H Absolute Eosinophils 0.02 Absolute Basophils 0.03 RBC Morphology Normal Sodium 142 143 Potassium 3.5 3.6 Chloride 110 H 111 H Carbon Dioxide 23.2 22.0 Anion Gap 8.8 10.0 BUN 20 H 20 H Creatinine 1.0 1.0 Est GFR (CKD-EPI 2020) 76.08 76.08 Glucose 83 79 Calcium 8.8 9.1 Creatine Kinase 136 Time Spent with Patient Time Spent with Patient: >50 minutes Time was spent: preparing to see the patient(eg.review tests), obtaining and/or reviewing separately otained hiistory, ordering medications,tests, procedures, referring, communicating with other health geriatric care manager, indepentently interpreting results, counseling the patient and care coordination
--- NOTE | 2024-02-20 11:19 | CMPROGNOTE_ITS ---
Date of service: 02/20/24 Time of Service: 11:19 Care Management Progress Note Progress Note Text Progress Note Text: CM spoke to Patricia, Dawit's niece, who stated that after talking with some of Dawit's neighbors, who want to visit Dawit while he is at rehab, she decided that [facility] would be the first choice for rehab, and [place] is the second choice (where he will be closer to family). Dawit was sleeping when CM attempted to meet with him; per RN, he is still confused today. Per report, he is being tested for EEE. The provider is reaching out to [facility] [place]. CM will continue to follow. Discharge Potential Discharge Needs: Other (SNF) Anticipated Barriers to Discharge: Bed availability and Medical Status Patient/Family Education Needs: Review discharge instructions, discuss Ask Me Three Transportation: Facility Transport Plan: PT has recommended SNF for short term rehab for Dawit. An initial discussion did not seem to indicate he would be opposed but Dawit is not mentally clear enough at this point to make a decision about that. CM followed up with his niece Patricia. Referrals have been sent to [facility]; [facility] is now the first choice, per Patricia, due to visitation opportunities by local friends. Transportation will be determined by disposition. CM will follow and continue to assess for discharge needs. SDOH(Care Management) Screening Will the Patient Participate in the Screening?: Yes Do you worry about having a steady place to live?: no Problems where you live: no known problems In the past 12 months, have you had to go without electric, gas, oil or water in your home?: no Have you or anyone in your house had to go without enough food to eat?: no Has lack of transportation kept you from medical appointments or from doing things needed for daily living?: no Has anyone in your support network made you feel unsafe for any reason?: no
--- NOTE | 2024-02-20 12:27 | PT.INTREAT ---
PT Notes Visit Reasons: pneumonia Inpatient Physical Therapy Treatment Note [facility] Date: 02-20-2024 PRECAUTIONS:Standard, High fall risk,IMPULSIVE, rodríguez catheter, , IV RUE SUBJECTIVE: Pt stating he feels better today and he is waiting for a visit from the doctor. ( telehealth set up in his room). OBJECTIVE: Pt supine in bed with HOB elevated 35 degrees. The nasal cannula laying by his side. bed alarms on. He is agreeable to participate with PT while he waits for his telehealth visit from Neurology. Pt's non skid socks removed Bilaterally. This PT noted a reddened open area to medial aspect of 2nd toe DIP with surrounding erythema. Nurse Melly was notified and visualized open area. dressing applied. Pt able to don sneakers without excess pressure to area.? Therapeutic Activities (64514f6): Direct one-on-one instruction in dynamic activities to improve functional performance. ? Provided skilled cues and instruction on performance and technique throughout. ?all transfers with sneakers on. Sit-stand: CGA x 5 trials with sneakers on no posterior LOB noted Stand-sit: CGA x 5 trials ? Surface to surface transfers: Step turn transfer with FWW CGA one episode of slight LOB to right during transfer to the right. seated trunk unsupported balance with BLE feet supported. dynamic reaching to challenge limits of reach. Standing balance dynamic and static tasks: Static with supervision without trunk sway with BUE supported on FWW; dynamic standing hand washing at sink including reaching for soap , towels and management of faucets without UE support and CGA no LOB. Ambulation:Pt amb with sneakers on and FWW with CGA / min A to reduce speed of ambulation. Pt with intermittent excessive sway of trunk. Pt noted to kick right rear leg of FWW during one turn to the right out of 7 turns. Therex: seaated hip flexion/marching,LAQ, heel raises toe raises, stand marching and hip abduction 10 reps BLE ASSESSMENT:?Patient noted to be less impulsive during transitions and ambulation. Pt able to vocalize need for bathroom and remained calm as approached bathroom no impulsivity noted with this. Sneakers significantly improved his ability to sustain standing tasks with reduction in retropulsion. Session ended as teleheath visit began. PLAN: Continue with BID treatments for functional mobility training as tolerated with sufficient cueing to address sequencing impairment from hepatic encephalopathy and co-morbidities. TREATMENT CODE/TIME: 46459 x 24 minutes for 2 unit, 66280 x 10 mins for 1 unit / [id number] DISCHARGE RECOMMENDATION: SNF for short-term rehab
--- NOTE | 2024-02-20 13:38 | NUR.NOTE ---
Nursing Note: 1225, neuro tele exam completed.
[2024-02-20] MEDS: AZITHROMYCIN 500 MG in Normal Saline 250 ML 250 MG IVPB (13:56)
[2024-02-20 15:14] VITALS: BP 153/69; PULSE 82; RESP 18; TEMP 36.6; O2SAT 91
--- NOTE | 2024-02-20 16:52 | PT.INTREAT ---
PT Notes Visit Reasons: pneumonia Inpatient Physical Therapy Treatment Note [facility] Date: 02-20-2024 PRECAUTIONS:Standard, High fall risk,IMPULSIVE, rodríguez catheter, , IV RUE SUBJECTIVE: Pt stating he participated in his telehealth session this morning. He states it went well. OBJECTIVE: Patient presents seated in bedside chair legs elevated sneakers on. No oxygen on at this time Therapeutic Activities (63597x9): Direct one-on-one instruction in dynamic activities to improve functional performance. ? Provided skilled cues and instruction on performance and technique throughout. ?all transfers with sneakers on. Sit-stand: CGA x 3 trials no posterior LOB noted Stand-sit: CGA x 5 trials ? Surface to surface transfers: Step turn transfer with FWW CGA Standing balance dynamic and static tasks: Static with supervision without trunk sway with BUE supported on FWW; dynamic standing hand washing at sink including reaching for soap , towels and management of faucets without UE support and CGA no LOB. Ambulation:Pt amb 300 feet with sneakers on and FWW with CGA / min A to reduce speed of ambulation. Pt with intermittent excessive sway of trunk at the end of the 300 feet. Patient then ambulated 20 feet x 2 with FWW with contact-guard with verbal cues to reduce speed with positive carryover. ASSESSMENT:. Sneakers significantly improved his ability to sustain standing tasks with reduction in retropulsion and improved stability during ambulation. Nursing staff encouraged to utilize sneakers during functional mobility.. PLAN: Continue with BID treatments for functional mobility training as tolerated with sufficient cueing to address sequencing impairment from hepatic encephalopathy and co-morbidities. TREATMENT CODE/TIME: 27776 x 24 minutes for 2 unit/1322?[id number] DISCHARGE RECOMMENDATION: SNF for short-term rehab
[2024-02-20 21:00] VITALS: O2SAT 92
--- NOTE | 2024-02-20 21:00 | NUR.NOTE ---
Nursing Note: Attempted ice chips with pt, pt coughing with one ice chip. Kept NPO without meds.
[2024-02-21] MEDS: DEXTROSE 5%-0.45% SALINE 1,000 ML 75 ML IV ×2 (02:59→17:39)
[2024-02-21 03:02] VITALS: BP 152/55; PULSE 80; RESP 20; TEMP 37.1; O2SAT 92
[2024-02-21] MEDS: DOXYCYCLINE 100 MG in Normal Saline 100 ML IVPB ×2 (04:08→16:27)
[2024-02-21 06:50] LABS: Abs Immature Grans 0.34 10^3/uL (0.0-0.06); Absolute Basophil Count 0.04 10^3/uL (0.0-0.2); Absolute Eosinophil Count 0.02 10^3/uL (0.0-0.7); Absolute Lymphocyte Count 0.81 10^3/uL (1.2-3.4); Absolute Monocyte Count 0.85 10^3/uL (0.1-0.8); Absolute Neutrophil Count 7.25 10^3/uL (1.2-6.7); Basophils % 0.4 %; Eosinophils % 0.2 %; HCT 29.5 % (40.0-50.0); HGB 9.9 g/dL (13.5-17.5); Immature Grans % 3.7 %; Lymphocytes % 8.7 %; MCH 31.7 pg (27.0-33.0); MCHC 33.6 % (32.0-36.0); MCV 95 fL (80-95); MPV 9.4 fL (8.0-11.0); Monocytes % 9.1 %; Neutrophils % 77.9 %; Platelet Count 254 10^3/uL (130-400); RBC 3.12 10^6/uL (4.36-5.78); RDW 13.3 % (11.8-14.1); RDW-SD 45.8 fL; WBC 9.31 10^3/uL (4.4-10.8)
[2024-02-21 07:30] LABS: ALT 54 U/L (16-63); AST 46 U/L (15-37); Albumin 1.9 g/dL (3.4-5.0); Alkaline Phosphatase 121 U/L (46-116); Anion Gap 10.7 mmol/L (3-11); BUN 22 mg/dL (7-18); Bilirubin, Direct 0.5 mg/dL (0.0-0.2); Bilirubin, Total 1.76 mg/dL (0.2-1.0); CO2 21.3 mmol/L (21.0-32.0); CREATININE 0.9 mg/dL (0.70-1.30); Chloride 114 mmol/L (98-107); Estimated GFR 86.34 (mL/min/1.73m2); Glucose 97 mg/dL (74-106); Potassium 3.7 mmol/L (3.5-5.1); Sodium 146 mmol/L (136-145); Total Protein 5.4 g/dL (6.4-8.2)
[2024-02-21] MEDS: Enoxaparin 40 MG/0.4 ML SYR SC (07:33)
[2024-02-21 07:56] VITALS: BP 149/55; PULSE 67; RESP 18; TEMP 37.4; O2SAT 96
[2024-02-21 08:36] VITALS: O2SAT 92
--- NOTE | 2024-02-21 09:10 | W.PM.PROGNOT ---
Date of Service Date of service: 02/21/24 Time of Service: 12:30 Assessment and Plan Assessment and plan (1) Altered mental status, unspecified: Status: Acute Assessment and plan: Improving confusion -short term memory defect-reported by PCP and neighbors per ED provider. Seems to be displaying the same symptoms of agitation seen at initial presentation today patient is found to be awake, alert and oriented X 2 with no focal deficits, with some evidence of cognitive impairment easier to be reoriented/directed today . MRI negative Continue fall precautions, As needed neuro checks MRI w/o acute findings Tele-neuro consult - recommended transfer - [facility] [place] d/t capacity declined today again at [facility] [place] -Will try [facility] [place], other centers in AM Tick and lyme panel negative EEE ordered and pending (2) Fall: Status: Acute Assessment and plan: Increased agitation - resolved Multiple falls reported in the past fall precautions in-place PT consultation in progress Considering wound consult for toe wound (3) Pneumonia: Status: Acute Assessment and plan: CAP: multilobar, left lower, right upper Continue doxycycline IV and azithromycin IV and completed today Blood Cx negative Legionella and strep pneumo negative No oxygen requirements Presentation including encephalopathy, weakness, pneumonia with elevated LFT's, On mucinex, updrafts and I/S (4) Rhabdomyolysis: Status: Acute Assessment and plan: Resolved (5) Guwri-tt-neycuuv kidney injury: Status: Acute Assessment and plan: Resolved (6) Elevated liver function tests: Status: Acute Assessment and plan: Improving in setting of multiple falls and rhabdo. no obstructive process noted on CT scan similar elevations of LFT's in the past with similar presentations in rhabdo. Off Statins for now . avoid hepatotoxic drugs Tick & Lyme panel negative CT results: Liver: The liver shows no abnormal focal lesion. There is a subcentimeter low-density lesion along the inferior right hepatic lobe most likely representing a cyst and is unchanged. Gallbladder and biliary ducts: There has been a prior cholecystectomy. No abnormal biliary dilatation. Pancreas: The pancreas shows no mass or inflammatory process. Spleen: The spleen is not enlarged. No focal lesion. (7) BPH w urinary obs/LUTS: Status: Chronic Assessment and plan: Continue flomax and proscar when able to take oral while monitoring for hypotension/orthostasis. Rodríguez in place.-voiding trial delayed Treat chronic constipation - continue schedule bowel regimen w colace TID . (8) Hypothyroidism: Status: Chronic Assessment and plan: TSH 1.14 On levothyroxine (9) Constipation: Status: Chronic Assessment and plan: continue bowel medicine regimen (10) DVT prophylaxis: Status: Acute Assessment and plan: Continue LMWH (11) Dysphagia: Assessment and plan: Speech consult in progress: please read notes Speech modify Barium swallow- NPO Might be d/t seroquel in the setting of Parkinsonism- seroquel d/c PRN trazodone trial of increased agitiation- NPO for now Tele- Neurology consult with recommendation for transfer- No bed at [facility] ENT consult Speech f/u in AM- no change NGT tube feeding : Jevity 1.2 @ 30 ml/hr .Start the feeding at 30 ml/hr x 4 hours. Advance by 15 ml/hr q 4 hours- goal 56 cc/hr Surgical consult for PEG on hold as per health care agent (12) Discharge planning issues: Status: Acute Assessment and plan: DNR/DNI PT consulted: SNF VS LTC discussed with Elton Subjective Subjective Patient reports: no new complaints, voiding w/o difficulty and bowel movement; denies tolerating liquids well, tolerating a regular diet, diarrhea, nausea, vomiting, shortness of breath or fever Exam Narrative Exam Narrative: Constitutional The patient is sitting in chair, cooperative , thinks he will be kicked- out no focal deficits noticed, no acute distress, improved bilateral ptosis HENMT:Facial structures with normal appearance, Neuro:Alert and oriented to self, place, short term memory defect still persistent Resp:CTAB Cardio: regular rhythm, S1, S2, positive radial and pedal pulses GI: Abdomen is not distended, soft and non tender, bowel sounds are present : no bladder distension-rodríguez in place - voiding trial delayed Back/spine/Pelvis: No back tenderness, normal alignment Integumentary: No skin lesions or rash Extremities: strength 5/5 to bilateral lower and upper extremities Psych: RASS 0, congruent- anxious and distress mood and normal affect. Objective Last Vital Signs Temp 37.4 C 02/21/24 07:56 Pulse 67 02/21/24 07:56 Resp 18 02/21/24 07:56 BP 149/55 H 02/21/24 07:56 Pulse Ox 92 02/21/24 08:36 Laboratory Results - last 24 hr 02/20/24 02/21/24 02/21/24 06:10 06:06 06:06 WBC 9.31 RBC 3.12 L Hgb 9.9 L Hct 29.5 L MCV 95 MCH 31.7 MCHC 33.6 RDW 13.3 Plt Count 254 MPV 9.4 Immature Gran % 3.7 Neutrophils % 77.9 Lymphocytes % 8.7 Monocytes % 9.1 Eosinophils % 0.2 Basophils % 0.4 Nucleated RBC % 0.0 Absolute Neutrophils 7.25 H Absolute Lymphocytes 0.81 L Absolute Monocytes 0.85 H Absolute Eosinophils 0.02 Absolute Basophils 0.04 Sodium 146 H Potassium 3.7 Chloride 114 H Carbon Dioxide 21.3 Anion Gap 10.7 BUN 22 H Creatinine 0.9 Est GFR (CKD-EPI 2020) 86.34 Glucose 97 Calcium 9.0 Total Bilirubin 1.76 H Cancelled Conjugated Bilirubin 0.5 H AST ALT Alkaline Phosphatase Total Protein Albumin 02/21/24 02/21/24 02/21/24 06:06 06:06 06:06 WBC RBC Hgb Hct MCV MCH MCHC RDW Plt Count MPV Immature Gran % Neutrophils % Lymphocytes % Monocytes % Eosinophils % Basophils % Nucleated RBC % Absolute Neutrophils Absolute Lymphocytes Absolute Monocytes Absolute Eosinophils Absolute Basophils Sodium Potassium Chloride Carbon Dioxide Anion Gap BUN Creatinine Est GFR (CKD-EPI 2020) Glucose Calcium Total Bilirubin Conjugated Bilirubin Cancelled AST 46 H Cancelled ALT 54 Cancelled Alkaline Phosphatase 121 H Total Protein Albumin 02/21/24 02/21/24 02/21/24 06:06 06:06 06:06 WBC RBC Hgb Hct MCV MCH MCHC RDW Plt Count MPV Immature Gran % Neutrophils % Lymphocytes % Monocytes % Eosinophils % Basophils % Nucleated RBC % Absolute Neutrophils Absolute Lymphocytes Absolute Monocytes Absolute Eosinophils Absolute Basophils Sodium Potassium Chloride Carbon Dioxide Anion Gap BUN Creatinine Est GFR (CKD-EPI 2020) Glucose Calcium Total Bilirubin Conjugated Bilirubin AST ALT Alkaline Phosphatase Cancelled Total Protein 5.4 L Cancelled Albumin 1.9 L Cancelled Time Spent with Patient Time Spent with Patient: >50 minutes Time was spent: preparing to see the patient(eg.review tests), obtaining and/or reviewing separately otained hiistory, ordering medications,tests, procedures, referring, communicating with other health lpn care manager, indepentently interpreting results, counseling the patient and care coordination
--- NOTE | 2024-02-21 09:25 | CMPROGNOTE_ITS ---
Date of service: 02/21/24 Time of Service: 09:25 Care Management Progress Note Progress Note Text Progress Note Text: Dawit was sitting up in bed when CM met with him. He was about to have an NG tube inserted and was not well positione dto talk. Dawit has been having a great deal of dirfficulty swallowing. Per NIC Kraft, he must be kept NPO as he cannot safely swallow anything. There was some discussion today about insetrting a PEG tube and a surgical consult was requested. Dawit is still not at his baseline mentally and does not seem able to make a complex medical decision. CM contacted Patricia, his niece/healthcare agent and met with her to discuss the above. She informed CM that she is fine with a temporary nasogastric tube but does not fdeel comfortable twith the feeding tube yet.She stated that she did not feel that's what Dawit would want. CM communicated the conversation to the provider who placed the surgical consult on hold. Efforts were made yesterday to have Dawit transferred to a facility that has both Neurology and ENT. Both and [facility] were at capacity; additional calls will be made today to other hospitals to pursue transfer. Discharge Potential Discharge Needs: PCP F/U Appt Anticipated Barriers to Discharge: Medical Status Patient/Family Education Needs: Review discharge instructions, discuss Ask Me Three Transportation: Private vehicle Plan: PT has recommended SNF for short term rehab for Dawit. Referrals were sent to [facility] and [facility]. A bed offer was received from [facility] and was accepted. If Dawit does not get transferred to another hospital, it is likely he will transition to [facility] when medically ready. CM will follow and continue to assess for discharge needs. SDOH(Care Management) Screening Will the Patient Participate in the Screening?: Yes Do you worry about having a steady place to live?: no Problems where you live: no known problems In the past 12 months, have you had to go without electric, gas, oil or water in your home?: no Have you or anyone in your house had to go without enough food to eat?: no Has lack of transportation kept you from medical appointments or from doing things needed for daily living?: no Has anyone in your support network made you feel unsafe for any reason?: no
--- NOTE | 2024-02-21 10:49 | PT.INTREAT ---
PT Notes Visit Reasons: pneumonia Inpatient Physical Therapy Treatment Note [facility] Date: 02-21-2024 PRECAUTIONS:Standard, High fall risk,IMPULSIVE, rodríguez catheter, , IV RUE, Oxygen 1 L/min, Sneakers on for all mobility SUBJECTIVE: Pt reporting he does not feel as good as yesterday.Pt perseverating on someone kicking him out OBJECTIVE: Pt presents in bed with HOB elevated 40 degrees IV infusing, Oxygen on at 1L /min via NC, Rodríguez to bed side drainage. Pt noted with word finding difficulty this session as compared to last session. Pt with agitation and restlessness difficult to attend to task. Therapeutic Activities (88813u5): Direct one-on-one instruction in dynamic activities to improve functional performance. ? Provided skilled cues and instruction on performance and technique throughout. ?all transfers with sneakers on. Sit-stand: CGA x 3 trials (+) LOB posteriorly to the right Stand-sit: min A x 2 trials ? CGA x 1 trial? Surface to surface transfers: Step turn transfer with FWW min A d/t impulsivity ambulation within room short distances with FWW, min A and 2nd person assist for oxygen and IV pole management. ASSESSMENT:Pt demonstrates increased agitation difficulty attending to task. pt perseveration interfers with ability to perform tasks safely with out impulsivity. Difficulty following directions this session. Ambulation limited to in room as pt became agitated as approached the door. Pt agreeable to sit in bedside chair , alarm on and functioning, call light on his lap, oxygen in place. Pt asked for his wallet and phone which were given to him. PLAN: Continue with BID treatments for functional mobility training as tolerated with sufficient cueing to address sequencing impairment from hepatic encephalopathy and co-morbidities. TREATMENT CODE/TIME: 05092 x2 [id number] for 35 mins DISCHARGE RECOMMENDATION: SNF for short-term rehab
--- NOTE | 2024-02-21 10:59 | W.SPSTP ---
Date of service: 02/21/24 Time of Service: 10:00 Osvaldo Pastor was contacted in his room for dysphagia follow-up after MBSS 2 days ago. He remains NPO. Per nursing and PT, he has perhaps demonstrated some mild improvements in mental status but with some fluctuation. Objective/Assessment/Plan Objective Treatment Techniques & Outcomes: Filling Machine Set Up Mechanic Goals: Patient will participate in ongoing diagnostic treatment in dysphagia and cognitive communication to support safe discharge. Short Term Goals: Family/staff education re: cognitive communication deficits, strategies to support. Patient will safely tolerate least restrictive diet for adequate nutrition. Repeat cranial nerve screening this date shows modest improvements in oral coordination via cheek puff task, lingual resistance, and lingual ROM tasks. SEISMOGRAPHER assisting patient to complete oral care prior to PO trials. PO Trials: Ice chips via tsp x2 Spoon dipped in ice water x 30 Sip water (thin L) via 1/2 tsp x 20 Sip moderately thick Liquid via 1/2 tsp x1 (patient refused further trials of this) Oral phase: WFL but impulsive, frequently attempting to converse prior to initiating swallow. No oral residue. No anterior loss. Pharyngeal Phase: Hyo-laryngeal elevation is variable,frequently delayed, effortful and sluggish with poor elevation. Intermittent audible swallow with good elevation. SEISMOGRAPHER providing cues for Hard and fast swallow. Intermittent wet cough after swallow for 30-50% of thin liquid swallows. Patient appears to verbalize some awareness of when a swallow is more vs less successful. Assessment Patient with very modest improvements in non-deglutition oral-motor tasks this date. He also participated in therapeutic trials with conservative trials of thin liquids this date, for a total of ~50 total effortful swallows for swallow strengthening and stimulation. He continues to demonstrate frequent s/sx aspiration even with most conservative trials under freewater protocol. Given unknown etiology, rehab potential is unknown but given profound nature of dysphagia, continue to recommend consideration of alternative/enteral nutrition routes at least on a temporary basis while rehab potential trialled. Continue to recommend transfer for further neurology workup with onsite MD's, however, if no transfers are available, he would benefit from urgent outpatient neurology referral and discharge to SNF with on-site SEISMOGRAPHER for further intensive dysphagia rehabilitiation. Continue to be unclear of patient's capacity to make healthcare decisions such as feeding tube placement, though he does demonstrate some insight into dysphagia. SEISMOGRAPHER plans to complete cognitive screening to provide further context for this as goals of care and discharge plan are determined in the coming days. Specialist referrals: RD, Consider Palliative to assist in determining goals of care/further workup Follow-up exam: PRN Plan Plan: INPATIENT SEISMOGRAPHER SERVICES: 3-5x Weekly for dysphagia rehabilitation. Diet recommendation: IDDSI Level Solids: N/A - NPO Liquids: N/A - NPO Risk Management: Thorough oral hygiene Q3-4 hrs Oral comfort/Therapeutic Swallow Stimulation: recommend to be completed by nursing in collaboration with SEISMOGRAPHER Provide 1/2 tsp ice water or dip metal spoon in cold water to stimulate swallow, 10 trials at a time every 3-4 hrs after oral care. Positioning: Up to chair or 90 degrees upright in bed. Recommendations Diet: NPO Total Time Spent: 30m (10:00-10:30)
--- NOTE | 2024-02-21 12:57 | W.SPSTP ---
Date of service: 02/21/24 Time of Service: 12:57 Subjective Re-contacted patient for cognitive screening at noon per hospitalist request given relatively stable mental status over last several days per nursing report. Patient is up to chair. Perseverating on having no phone company miner blasting and wondering if/when he will be sent home. Situationally disoriented What is going on here? Why can't they send me home. What's wrong with me? While he endorses recent issues such as falls, inability to take PO, he is unable to understand why he would be unsafe at home. Objective/Assessment/Plan Objective Treatment Techniques & Outcomes: Group Home Goals: Patient will participate in ongoing diagnostic treatment in dysphagia and cognitive communication to support safe discharge. Short Term Goals: Family/staff education re: cognitive communication deficits, strategies to support. Patient will safely tolerate least restrictive diet for adequate nutrition. [facility] Mental Status Examination - [facility] Orientation & Attention: 2/3 Calculation & Registration: 0/3 Category Naming/Verbal Fluency: 2/3 Delayed Recall with Interference: 1/5 Registration and Digit Span: 1/2 Clock Drawin/4 Visual Spatial: 2/2 Story Recall with Executive Function: 2/8 TOTAL SCORE: 10/30 (Scores between 1 and 20 are suggestive of dementia) Confrontation Namin/8 for concrete objects around the room. Patient does spontaneously use effective circumlucution when unable to retrieve words. E.g., the thing you use to change the TV channel for /remote/. Speech Production: Speech is fluent, mildly fast pace, with some dysphonia evident as well as subtle intermitent aphonia. Suspect at least some aspect of poorly coordinationed respiration or respiratory capacity for speech, but also question laryngeal function. Articulation appears largely normal except that breath support is occasionally inadequate for plosives or fricatives. Not appreciating any clean consonant or vowel substitutions, groping, consistently weak articulatory contacts, or distortions. Automatics (counting) are WFL except for above-mentioned abnormalities. Will continue to perform more formal speech assessment tasks in coming sessions. Assessment Patient scored 10/30 on cognitive screener with global cognitive impairment to a degree often suggestive of dementia. He does demonstrate insight/awareness into his errors and difficulties with various tasks such as recall, clock draw, calculation, but despite multiple retries is incapable of problem-solving for self-correction. Demonstrates limited immediate recall and poor attention capacity/working memory which is likely impacting word-finding as well. Both confrontation and category naming are impaired. Specialist referrals: RD, Consider Palliative to assist in determining goals of care/further workup Follow-up exam: PRN DISCHARGE: Continue to recommend transfer for further workup with onsite neurology, however, if no transfers are available, he would benefit from urgent outpatient neurology referral and discharge to SNF with on-site INFORMATION SYSTEMS MANAGER for further intensive dysphagia rehabilitiation. Plan INPATIENT INFORMATION SYSTEMS MANAGER SERVICES: 3-5x Weekly for dysphagia rehabilitation. Diet recommendation: IDDSI Level Solids: N/A - NPO Liquids: N/A - NPO Risk Management: Thorough oral hygiene Q3-4 hrs Oral comfort/Therapeutic Swallow Stimulation: recommend to be completed by nursing in collaboration with INFORMATION SYSTEMS MANAGER Provide 1/2 tsp ice water or dip metal spoon in cold water to stimulate swallow, 10 trials at a time every 3-4 hrs after oral care. Positioning: Up to chair or 90 degrees upright in bed.
--- NOTE | 2024-02-21 13:21 | NS.NUTBLAN_ITS ---
Date of service: 02/21/24 Time of Service: 13:22 Nutritional Consult ASSESSMENT: Mr. Hanson has been assessed by PHOTOENGRAVING PRINTER and was deemed unsafe at this time to take nutrition by mouth. He has dysphagia with fluctuating mental status. Tube feed recommendations have been requested. Mr. Hanson is 183 cm and 72.2 kg. His BMI is 21.6 kg/m2 which is WNL but on the low end of normal for his age. However, looking back at his weight history over several years, his weight is entirely stable. Estimated energy needs are 1600 kcal/day (REE x 1.1 activity factor) Estimated protein needs are 72 g/day to 86 g/day (1.0 to 1.2 g/kg/day) Estimated fluid needs are 2160 ml/day (30 ml/kg/day) NUTRITIONAL DIAGNOSIS: Inability to take oral foods and fluids related to dysphagia and NPO status. INTERVENTION: Recommend the following NG feeds: Jevity 1.2 beth with goal rate of 56 ml/hr continually. Start with Jevity 1.2 beth @30 ml/hr x 4 hours and increase by 15 ml/hr q 4 hours as tolerated until g oal rate is reached. This feeding provides 1600 kcals/24 hours, 74 grams of protein and 1100 ml of free water. It also provides 22 grams of fiber. As Mr. Hanson had been eating on this admission and prior to admission, it is important to give him a feeding with fiber. This feeding provides 100% of his macronutient and micronutrient estimated needs. He will likely require an additional 1100 ml/day of free water to maintain adequate hydration. Special considerations may be stopping the feeding pre and or post any parkinson medication administration should he take any with which the protein in the feeding will interfere. MONITORING AND EVALUATION: 1. Will monitor weight, tolerance to feedings. 2. Will evaluate nutrition care plan ongoing and adjust as needed. Thank you so much for this consultation request. Time Spent in Nutritional Counseling and Treatment: 30 minutes
[2024-02-21] MEDS: AZITHROMYCIN 500 MG in Normal Saline 250 ML 250 MG IVPB (13:44)
--- NOTE | 2024-02-21 13:57 | PT.INTREAT ---
PT Notes Visit Reasons: pneumonia Inpatient Physical Therapy Treatment Note [facility] Date: 02/21/2024 PRECAUTIONS: Activity as tolerated. Impulsive, impaired safety awareness and hgh fall risk. Oxygen supplementation via NC at 1 L/min. Foot wear/Sneakers on when OOB. SUBJECTIVE: Agreeable to walking using his shoes. Expressed concern about not wanting to go somewhere if possible. Needed to use toilet prior to walk. Nurse Kevin and Nurse thania siad that patient needed NGT placed and so patient was assisted back in bed. OBJECTIVE: Resting in bed, NC on. Noted that IV line was detached and dripping when he was assisted in bed to sit up. Nurse Thania aware. Bed Mobility/Transfers: Moderate verbal cueing given for walker management, posture, weight distribution, and slow directional change during transfer? Sit-stand: contact guard assist with FWW Stand-sit: contact guard assist with FWW? Bed to toilet seat conatct guard assist with FWW Gait: Moderate verbal cueing given for walker management, posture, weight distribution, and slow directional change during transfer. Covered room distance to and from toilet seat before Nurses came in and told patient that NGT needed to be placed. Patient neeed to be assisted back onto bed for procedure. ? ? ASSESSMENT: Patient perseverated on the plan that was presented to him as of this morning to transfer to a SNF once he is stable. He expressed that he would prefer to stay if possible. Was agreeable to working with PT but needed to stay after assistance with toileting for NGT placement. PLAN: Continue with BID treatments for functional mobility training as tolerated with sufficient cueing to address sequencing impairment from hepatic encephalopathy and co-morbidities. DISCHARGE RECOMMENDATION: SNF for continued rehab to achieve highest and safet mobility level. TREATMENT CODE/TIME: 10025 x 23 minutes for 2 units (13:57-14:20).
[2024-02-21] MEDS: Benzocaine 20% 60 ML CAN TP (14:17)
--- NOTE | 2024-02-21 15:10 | DI.RAD_ITS ---
Exam(s) XR PORTABLE CHEST AP POST LINE EXAM: XR PORTABLE CHEST AP POST LINE CLINICAL HISTORY: NG Tube placement. TECHNIQUE: 2D digital imaging was performed. COMPARISON: CR,XR XR CHEST 2V PA LATERAL from 02/15/2024 FINDINGS: Single AP portable view. Heart size is upper normal. The mediastinum is not widened. There is an NG tube in place. Its distal tip is at the GE junction and requires being advanced furth er into the stomach. There interstitial and confluent infiltrates now evident in both lung givens, significantly more than on 02/15/2024. The previously described left lower lobe infiltrate has significantly increased in s ize and density and there is new infiltrate in the right lower lobe now evident as well as in right u pper lobe. There no obvious pleural effusions on this portable view. IMPRESSION: Significant increased bilateral lung infiltrates. NG tube distal tip is at the GE junction and needs to be advanced further into the stomach. DATA REPOSITORY: RADIATION DOSE DELIVERED:
[2024-02-21 15:18] VITALS: BP 163/57; PULSE 72; RESP 17; TEMP 36.7; O2SAT 91
--- NOTE | 2024-02-21 16:00 | DI.RAD_ITS ---
Exam(s) XR PORTABLE CHEST AP EXAM: XR PORTABLE CHEST AP CLINICAL HISTORY: NG tube advancement placement. TECHNIQUE: 2D digital imaging was performed. COMPARISON: CR XR PORTABLE CHEST AP POST LINE from 02/21/2024 FINDINGS: Single AP portable view. Compared to earlier today the NG tube has been advanced further into the stomach. It should be furth er advanced. Heart size is upper normal. The mediastinum is not widened. The prominent bilateral infiltrates are again noted. No obvious pleural effusions. No pneumothorax. IMPRESSION: Bilateral infiltrates as described on chest x-ray earlier today. No improvement. NG tube is further into the stomach but should be even more further advanced DATA REPOSITORY: RADIATION DOSE DELIVERED:
--- NOTE | 2024-02-21 18:30 | DI.RAD_ITS ---
Exam(s) XR PORTABLE CHEST AP EXAM: XR PORTABLE CHEST AP CLINICAL HISTORY: NG Tube further Advancement. TECHNIQUE: 2D digital imaging was performed. COMPARISON: CR XR PORTABLE CHEST AP from 02/21/2024 FINDINGS: Single AP portable view. Heart size normal. Mediastinum unchanged. Position of the NG tube has been further advanced and is presently in the fundus of the stomach. Bilateral infiltrates are again noted without radiographic improvement from earlier today. There are no obvious pleural effusions IMPRESSION: Persistent bilateral lung infiltrates. The NG tube has now been advanced further into the stomach and is in the region of the fundus DATA REPOSITORY: RADIATION DOSE DELIVERED:
[2024-02-21 19:52] VITALS: BP 165/63; PULSE 75; RESP 16; TEMP 37.2; O2SAT 88
[2024-02-21 23:19] VITALS: O2SAT 92
[2024-02-22] MEDS: Levothyroxine 25 MCG TAB PO (06:43)
[2024-02-22] MEDS: DEXTROSE 5%-0.45% SALINE 1,000 ML 75 ML IV (06:55)
[2024-02-22 06:57] LABS: Abs Immature Grans 0.19 10^3/uL (0.0-0.06); Absolute Basophil Count 0.03 10^3/uL (0.0-0.2); Absolute Eosinophil Count 0.04 10^3/uL (0.0-0.7); Absolute Lymphocyte Count 0.89 10^3/uL (1.2-3.4); Absolute Monocyte Count 0.74 10^3/uL (0.1-0.8); Absolute Neutrophil Count 6.12 10^3/uL (1.2-6.7); Basophils % 0.4 %; Eosinophils % 0.5 %; HCT 28.1 % (40.0-50.0); HGB 9.4 g/dL (13.5-17.5); Immature Grans % 2.4 %; Lymphocytes % 11.1 %; MCH 31.6 pg (27.0-33.0); MCHC 33.5 % (32.0-36.0); MCV 95 fL (80-95); MPV 8.7 fL (8.0-11.0); Monocytes % 9.2 %; Neutrophils % 76.4 %; Platelet Count 279 10^3/uL (130-400); RBC 2.97 10^6/uL (4.36-5.78); RDW 13.2 % (11.8-14.1); RDW-SD 45.5 fL; WBC 8.01 10^3/uL (4.4-10.8)
[2024-02-22 07:05] LABS: Anion Gap 3.8 mmol/L (3-11); BUN 15 mg/dL (7-18); CO2 29.2 mmol/L (21.0-32.0); CREATININE 0.9 mg/dL (0.70-1.30); Calcium 8.5 mg/dL (8.5-10.1); Chloride 111 mmol/L (98-107); Estimated GFR 86.34 (mL/min/1.73m2); Glucose 123 mg/dL (74-106); Potassium 3.1 mmol/L (3.5-5.1); Sodium 144 mmol/L (136-145)
[2024-02-22 07:40] VITALS: BP 149/59; PULSE 66; RESP 17; TEMP 37.1; O2SAT 89
[2024-02-22] MEDS: Enoxaparin 40 MG/0.4 ML SYR SC (08:36)
[2024-02-22] MEDS: Multivitamin w/Minerals TAB 1 TAB PO (08:36)
[2024-02-22] MEDS: Finasteride 5 MG TAB PO (08:36)
[2024-02-22] MEDS: Lisinopril 2.5 MG TAB PO (08:37)
--- NOTE | 2024-02-22 08:59 | PGE_ITS ---
Date of Service Date of service: 02/19/24 Time of Service: 08:59 Assessment and Plan Assessment and plan (1) Altered mental status, unspecified: Status: Acute Assessment and plan: Improving confusion -short term memory defect-reported by PCP and neighbors per ED provider. Seems to be displaying the same symptoms of agitation seen at initial presentation today patient is found to be awake, alert and oriented X 2 with no focal deficits, with some evidence of cognitive impairment easier to be reoriented/directed today . MRI negative Continue fall precautions, Stop seroquel initiated as a trial Rx in the setting of delirium- As needed neuro checks MRI w/o acute findings Tele-neuro consult Tick and lyme panel negative Considering ordering EEE testing (2) Fall: Status: Acute Assessment and plan: Increased agitation - able to reorient Multiple falls reported in the past Maintain fall precautions PT consultation in progress (3) Pneumonia: Status: Acute Assessment and plan: CAP: multilobar, left lower, right upper On doxycycline IV and azithromycin IV Blood Cx negative Legionella and strep pneumo pending No oxygen requirements Presentation including encephalopathy, weakness, pneumonia with elevated LFT's, Continue mucinex, updrafts and I/S (4) Rhabdomyolysis: Status: Resolved Assessment and plan: CPK was treding down CPK in AM (5) Kxhmm-og-znrhkzo kidney injury: Status: Acute Assessment and plan: Cr 1.0 around baseline (6) Elevated liver function tests: Status: Acute Assessment and plan: Improving in setting of multiple falls and rhabdo. no obstructive process noted on CT scan similar elevations of LFT's in the past with similar presentations in rhabdo. Still off the Statins Rx for now . Continue to avoid hepatotoxic drugs Tick & Lyme panel negative CT ABD and pelvis from 02/14 results: Liver: The liver shows no abnormal focal lesion. There is a subcentimeter low-density lesion along the inferior right hepatic lobe most likely representing a cyst and is unchanged. Gallbladder and biliary ducts: There has been a prior cholecystectomy. No abnormal biliary dilatation. Pancreas: The pancreas shows no mass or inflammatory process. Spleen: The spleen is not enlarged. No focal lesion. (7) BPH w urinary obs/LUTS: Status: Chronic Assessment and plan: Continue flomax and proscar when able to take oral while monitoring for hypotension/orthostasis. Rodríguez in place- will postpone voiding trial Treat chronic constipation - continue schedule bowel regimen w colace TID . (8) Hypothyroidism: Status: Chronic Assessment and plan: TSH 1.14 On levothyroxine (9) Constipation: Status: Resolved Assessment and plan: Continue bowel medicine regimen (10) DVT prophylaxis: Status: Deleted Assessment and plan: Continue Lovenox (11) Dysphagia: Assessment and plan: Speech consult in progress: please read notes Speech modify Barium swallow- NPO Might be d/t seroquel in the setting of Parkinsonism- seroquel discontinued on 02/18 Continue PRN trazodone trial of increased agitiation if able to take PO Tele- Neurology consult ordered Speech f/u in AM Considering NGT tube feeding and nutrition consult if no improvement (12) Discharge planning issues: Status: Deleted Assessment and plan: DNR/DNI PT consulted: SNF VS LTC VS tertiary center Discussed with Elton Subjective Subjective Patient reports: no new complaints, voiding w/o difficulty and bowel movement; denies tolerating liquids well, tolerating a regular diet, diarrhea, nausea, vomiting, shortness of breath or fever Exam Narrative Exam Narrative: Constitutional The patient is sitting in chair, cooperative during the interview- difficulty with focus- poor eye contact- closing eyes , no focal deficits noticed, no acute distress HENMT:Facial structures with normal appearance Neuro:Alert and oriented to self, place, short term memory defect still persistent - less flight of ideas Resp: normal resp, CTAB Cardio: regular rhythm, S1, S2 GI: Abdomen is not distended, soft and non tender, bowel sounds are present : no bladder distension-rodríguez in place Extremities: strength 5/5 to bilateral lower and upper extremities Psych: RASS 0, congruent- anxious and distress mood and normal- elated affect. Objective Last Vital Signs Temp 37.1 C 02/22/24 07:40 Pulse 66 02/22/24 07:40 Resp 17 02/22/24 07:40 BP 149/59 H 02/22/24 07:40 Pulse Ox 89 L 02/22/24 07:40 Laboratory Results - last 24 hr 02/22/24 06:35 WBC 8.01 RBC 2.97 L Hgb 9.4 L Hct 28.1 L MCV 95 MCH 31.6 MCHC 33.5 RDW 13.2 Plt Count 279 MPV 8.7 Immature Gran % 2.4 Neutrophils % 76.4 Lymphocytes % 11.1 Monocytes % 9.2 Eosinophils % 0.5 Basophils % 0.4 Nucleated RBC % 0.0 Absolute Neutrophils 6.12 Absolute Lymphocytes 0.89 L Absolute Monocytes 0.74 Absolute Eosinophils 0.04 Absolute Basophils 0.03 Sodium 144 Potassium 3.1 L Chloride 111 H Carbon Dioxide 29.2 Anion Gap 3.8 BUN 15 Creatinine 0.9 Est GFR (CKD-EPI 2020) 86.34 Glucose 123 H Calcium 8.5 Time Spent with Patient Time Spent with Patient: >50 minutes Time was spent: preparing to see the patient(eg.review tests), obtaining and/or reviewing separately otained hiistory, ordering medications,tests, procedures, referring, communicating with other health insurance healthcare representative, indepentently interpreting results, counseling the patient and care coordination
--- NOTE | 2024-02-22 11:37 | W.PM.DS.N ---
Date of service: 02/22/24 Time of Service: 11:37 DS: Diagnosis Discharge Diagnosis (1) Altered mental status, unspecified: Status: Acute (2) Fall: Status: Acute (3) Pneumonia: Status: Acute (4) Rhabdomyolysis: Status: Acute (5) Xniyy-bu-xnrsoad kidney injury: Status: Acute (6) Elevated liver function tests: Status: Acute (7) BPH w urinary obs/LUTS: Status: Chronic (8) Hypothyroidism: Status: Chronic (9) Constipation: Status: Chronic (10) DVT prophylaxis: Status: Acute (11) Dysphagia: (12) Discharge planning issues: Status: Acute Discharge Plan Disposition Patient Disposition: Transfer-Acute Inpatient Care Specific Acute Inpt Facility: [place] Condition: Deteriorating Discharge Details Reason For Visit: pneumonia Admit Date/Time: 02/15/24 15:12 Admit Provider: Barry Benitez Attending Provider: Barry Benitez Primary Care Provider: Kai Bonilla Hospital Course Hospital Course: This 78 years old male patient, living alone, with a past medical history of cognitive impairment, anxiety, hypertension, rhabdo, chronic kidney injury, hypothyroidism pneumonia presented to the emergency room at [facility] with chief complaint of multiple falls recently, worse yesterday the day prior to presentation without trauma, was unable to get up due to weakness, mentioning not being acting as himself. The patient was urged by friend and primary care practitioner to be evaluated in the emergency room. His last known well date was 02/14/2020 2020 4 in the morning. On arrival to the ED the patient denied pain, numbness, tingling, weakness, fever, abdominal pain, nausea, vomiting, syncope, chest pain. The patient was found to be alert and to x 4 but displayed difficulty following commands of this metric testing, but no focal weakness. Ambulation was without ataxia. The patient reportedly has a history of parkinsonism without formal diagnosis. Workup in the ED was significant right upper lobe and left lower lobe infiltrates, elevated CPK of 2600 consistent with history of recent falls and time down on the ground also elevated liver function tests which he has had previously with similar presentations. Workup ruled out fractures or injury sustained from the falls. Levofloxacin was initiated with saturation in the high 90s on room air. IV hydration also initiated with close monitoring of kidney and liver function. The patient was admitted to the medical surgical floor for evaluation and management of pneumonia and rhabdomyolysis. Rodríguez catheter was inserted due to urinary retention. CT of the abdomen and pelvis was completed with following results: CT results: Liver: The liver shows no abnormal focal lesion. There is a subcentimeter low-density lesion along the inferior right hepatic lobe most likely representing a cyst and is unchanged. Gallbladder and biliary ducts: There has been a prior cholecystectomy. No abnormal biliary dilatation. Pancreas: The pancreas shows no mass or inflammatory process. Spleen: The spleen is not enlarged. No focal lesion. Mildly enlarged prostate. MRI showed no evidence of acute infarct or acute intracranial process in the setting of increased confusion and expressive aphasia. Initially the patient was started on Seroquel due to increased agitation and confusion. Levaquin was stopped and the patient was treated with intravenous azithromycin and doxycycline. Initial speech therapy evaluation was completed in the setting of suspected aspiration as well as difficulty communicating and word retrieval with initial recommendation for aspiration prevention as well as neurology consult. On subsequent follow-up speech pathology recommended strict n.p.o. as dysphagia was worsening as evidenced by the modified barium swallow completed. Seroquel was stopped and as needed trazodone was ordered for agitation. Teleneurology consultation completed with recommendation for transfer in an acute care setting with onsite neurologist and ENT. [facility] , [facility] and [facility] were not able to accommodate the patient due to capacity. We did consider differential of oculopharyngeal muscular dystrophy but the patient denied any family history of muscular dystrophy. In past admission with COVID the patient had displayed dysphagia. CPK went back to baseline and electrolytes are within normal limits. The patient was able to ambulate with physical therapy and front rolling walker. NG tube was placed as recommended for enteral feeding as per nutrition consult. Follow-up chest x-ray for NG tube placement showed intermittent interstitial and confluent infiltrates in both lung givens significant more than image from 02/15/2024; left lower lobe infiltrate has significantly increased in size and density with new infiltrate in the right lower lobe and in right upper lobe; this is most likely due to to ongoing aspiration as the patient remained afebrile, normotensive and has a 1 L/min of oxygen requirement. Today the patient will be transferred to [facility] in the care of Dr. Ochoa from the hospitalist service. The case was also discussed with Dr. Pena ENT and Dr. Brock neurologist. The patient is a DNR/DNI and is healthcare agent is his niece name Miladis Cavazos who can be reached at the following number [phone]. Upon reviewing x-ray imaging showing worsening infiltrates antibiotic therapy was resumed with meropenem today. Discussed with Dr. Conde Home Meds and New Rx's Prescriptions: No Action pantoprazole [Protonix] 40 mg tablet,delayed release (DR/EC) 40 mg PO DAILY Qty: 90 12RF (DME) vacuum erection device system kit See Dose Instructions .ROUTE .MEDSUPPLY Qty: 1 0RF Dose Instruction: As directed Rx Instructions: As directed tamsulosin 0.4 mg capsule 0.4 mg PO BID Qty: 180 4RF simvastatin 10 mg tablet 10 mg PO DAILY Qty: 90 4RF mirtazapine 15 mg tablet 15 mg PO QHS Qty: 90 4RF lisinopril 2.5 mg tablet 2.5 mg PO DAILY Qty: 90 3RF finasteride [Proscar] 5 mg tablet 5 mg PO DAILY Qty: 90 4RF levothyroxine [Synthroid] 25 mcg tablet 25 mcg PO DAILY Qty: 90 4RF Centrum Silver Men 300-600-300 mcg Tablet 1 tab PO DAILY polyethylene glycol 3350 [Miralax] 17 gram Powder In Packet 17 g PO BID Qty: 0 0RF Discharge Instructions Activity:: Activity as Tolerated Equipment/Supplies:: Oxygen (L/min Below) Diet:: tube feeding Discharge Orders Discharge Orders: Discharge Order (Routine); Ordered 02/22/24 Ordered By: Stephanie Keen DS: Summary Time Spent with Patient providing and/or coordinating discharge services: Greater than 30 minutes Status at Discharge Functional status at discharge: uses cane/walker Overall status at discharge: patient is not back to baseline Mental Status: mental status grossly normal Speech and Movement: speech and movement normal Mood: congruent mood Affect: normal affect Quality:SDOH Health Related Social Needs: No Data to Display Exam Narrative Exam Narrative: Constitutional The patient is sitting in chair, cooperative ,, no acute distress, improved bilateral ptosis HENMT:Facial structures with normal appearance, Neuro:Alert and oriented to self, place, short term memory defect still persistent Resp:Bilateral crackles LL , ronchi upper lungs, clearing with cough Cardio: regular rhythm, S1, S2 GI: Abdomen is not distended, soft and non tender, bowel sounds are present- NGT in place : no bladder distension-rodríguez in place Back/spine/Pelvis: No back tenderness, normal alignment Extremities: strength 5/5 to bilateral lower and upper extremities Psych: RASS 0, congruent- anxious and distress mood and normal affect. Psych Mental Status: mental status grossly normal Speech and Movement: speech and movement normal Mood: congruent mood Affect: normal affect DS: Data Vitals/I&O Vitals and I&O: Vital Signs Temperature 37.1 C 02/22/24 07:40 Temperature Source Temporal Artery Scan 02/22/24 07:40 Pulse 66 02/22/24 07:40 Pulse Rhythm Regular 02/15/24 16:13 Pulse 69 02/15/24 15:46 Respiratory Rate 17 02/22/24 07:40 Respiratory Effort Normal 02/15/24 16:13 Respiratory Depth Normal 02/15/24 16:13 Respiratory Pattern Normal 02/15/24 16:13 Blood Pressure 149/59 H 02/22/24 07:40 Blood Pressure Mean 86 02/15/24 15:45 Pulse Oximetry 89 L 02/22/24 07:40 Oxygen Delivery Method Nasal Cannula 02/22/24 07:40 Oxygen Flow Rate 2 02/22/24 07:40 Pain Level 0 02/21/24 19:52 Comment Noifying MD of change 02/15/24 23:30 Intake & Output 02/21/24 02/21/24 02/22/24 11:59 23:59 11:59 Intake Total 850 / 2200 1350 / 2200 1327.5 / 1327.5 Output Total 700 / 700 550 / 550 Balance 850 / 1500 650 / 1500 777.5 / 777.5 Intake: IV 850 / 2200 1350 / 2200 1327.5 / 1327.5 Output: Urine 700 / 700 550 / 550 Other: Urine Color Yellow Light Analilia [place] Straw Urine Appearance Clear Clear Data Completed and Pending Labs on day of discharge: Labs from last 24 hours 02/22/24 06:35 WBC 8.01 RBC 2.97 L Hgb 9.4 L Hct 28.1 L MCV 95 MCH 31.6 MCHC 33.5 RDW 13.2 Plt Count 279 MPV 8.7 Immature Gran % 2.4 Neutrophils % 76.4 Lymphocytes % 11.1 Monocytes % 9.2 Eosinophils % 0.5 Basophils % 0.4 Nucleated RBC % 0.0 Absolute Neutrophils 6.12 Absolute Lymphocytes 0.89 L Absolute Monocytes 0.74 Absolute Eosinophils 0.04 Absolute Basophils 0.03 Sodium 144 Potassium 3.1 L Chloride 111 H Carbon Dioxide 29.2 Anion Gap 3.8 BUN 15 Creatinine 0.9 Est GFR (CKD-EPI 2020) 86.34 Glucose 123 H Calcium 8.5 PFSH All Active Problems (Updated 02/15/24 @ 16:13 by Tran Flores, PLANOGRAPH OPERATOR) Elevated liver function tests (Acute) Vghqu-zg-gyjynnz kidney injury (Acute) Fall (Acute) Altered mental status, unspecified (Acute) Discharge planning issues (Acute) DVT prophylaxis (Acute) Hypothyroidism (Chronic) Pneumonia (Acute) Rhabdomyolysis (Acute) Bile reflux gastritis (Acute) Gastroesophageal reflux disease with esophagitis without hemorrhage (Acute) Chronic anemia (Acute) Fe deficiency anemia (Acute) Diverticula of colon (Acute) Hiatal hernia with GERD (Acute) GERD (gastroesophageal reflux disease) (Chronic) Thyroid disease (Acute) BPH w urinary obs/LUTS (Chronic) Seasonal allergies (Acute) Obstructive sleep apnea (Chronic) Hyperlipidemia (Acute) Generalized anxiety disorder (Acute) Mild cognitive impairment (Acute) Hepatomegaly (Acute) Constipation (Chronic) Ambulatory dysfunction (Acute) Back pain (Acute) Anemia of chronic disease (Acute) Essential hypertension (Chronic) Constipation (Acute) PSVT (paroxysmal supraventricular tachycardia) (Acute) Medical History (Updated 02/15/24 @ 16:13 by Tran Flores, PLANOGRAPH OPERATOR) Hypotension Near syncope Palpitations Light-headed feeling Impacted cerumen, right ear Abdominal pain Neck pain Cellulitis Knee pain Impacted cerumen, bilateral Arthritis Insomnia Sigmoid diverticulosis HILDA on CPAP Transaminitis Closed head injury Dysphagia Rhabdomyolysis Secondary bacterial pneumonia Dehydration Acute kidney injury Multifocal pneumonia COVID-19 Feeling of incomplete bladder emptying Difficulty in urination Suprapubic pressure Anemia, blood loss Erythema multiforme Anemia Toxic metabolic encephalopathy Sepsis SBO (small bowel obstruction) Dehydration Ileus Acute confusion Clostridium difficile enterocolitis Vomiting Lumbar discitis MSSA bacteremia Urinary retention History of Clostridioides difficile colitis (~10/2013) 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 Casey Mixon, infectious disease, [place], [place]; completed treatment 11/20/2013; complicated by C. difficile colitis MSSA (methicillin susceptible Staphylococcus aureus) septicemia (10/09/13) in setting of ruputured appendicitis and found to have disciitis epidural abscess, [place], [place]; Dr. Casey Mixon, infectious disease BPH (benign prostatic hyperplasia) Conductive hearing loss Sensorineural hearing loss Panic anxiety syndrome Ambulatory dysfunction Back pain Gram-positive cocci bacteremia Left inguinal hernia Erectile dysfunction Surgical History (Updated 12/18/23 @ 14:29 by Sunshine Avendaño) History of esophagogastroduodenoscopy (~11/2023) H/O sinus surgery History of tonsillectomy and adenoidectomy History of bilateral cataract extraction History of cholecystectomy (~1998) S/P laparoscopic appendectomy (10/09/13) S/P left inguinal hernia repair Family History Mother No problems noted. Father No problems noted. Social History Smoking/Tobacco Use Status: Former Tobacco Use Quit Date: 05/27/75 Tobacco: How many years used: 32 Quit status: quit date established Second Hand Exposure: No Smoking risk assessment performed?: Yes Alcohol Intake: former Year quit: 1975 Drug use: Never Substance use type: does not use Housing: apartment Communication Needs: None Do you need help understanding health information?: Never Pets and animals: No Sexually active: No Do you think of yourself as: straight/heterosexual Current gender identity: male What is your relationship status?: How often do you talk on the phone with friends or family?: decline to answer How often do you get together with friends or relatives?: once per week How often do you attend caodaism or baptist services?: decline to answer Do you belong to any clubs or organized social groups?: no Panel score (0-1 are the most socially isolated patients): 0 What type of physical activity do you participate in: walking Alma/Zoroastrianism: Anabaptism Special alma needs: No Seatbelt use: always Drive intox or ride w/intox local company truck driver: No Do you feel safe at home: Yes Do you feel safe in your relationship?: No Additional Social history: lives alone Time Spent with Patient Time Spent with Patient: 70-84 minutes4 Time was spent: preparing to see the patient(eg.review tests), obtaining and/or reviewing separately otained hiistory, ordering medications,tests, procedures, referring, communicating with other health career based intervention coordinator, indepentently interpreting results, counseling the patient and care coordination
--- NOTE | 2024-02-22 11:45 | PT.INTREAT ---
PT Notes Visit Reasons: pneumonia Inpatient Physical Therapy Treatment Note [facility] Date: 02/22/24 SUBJECTIVE: Willy states that since his NGT was been placed, he feels as though his head is clearer. I can make more sense of things. OBJECTIVE: []? VITALS: ?closely monitored by nsg. Therapeutic Activities ([id number]): Direct one-on-one instruction in dynamic activities to improve functional performance. ? BED MOBILITY/TRANSFERS? Supine-sit: SBA ? Sit-stand:SBA ? Stand-sit: SBA ? Provided skilled cues and instruction on performance and technique throughout. GAIT? Assistive Device: FWW ? Weight bearing: full Assist: CGA, plus nurse to help with IV pole and oxygen tank. ? Distance:?approx 250'? Deviation: WBOS? Sit to stand ex x5. He was toileted. Was SBA (for balance)while he attended to his jennifer-care, of which he was independent with. he then ambulated to sink, where he was able to wash his hands. ASSESSMENT:? tolerated session quite well. Improvements noted cognitively. All transfers were safe, no noted impulsive mvmts. Able to navigate safely through room with obstacles to maneuver (chair, bed side table, and commode) Required assistance with IV pole and oxygen tank. PLAN: Will continue to progress strength and functional mobility to tolerance following PT POC. TREATMENT CODE/TIME: 25 min. [id number]. ([id number])
[2024-02-22] MEDS: MEROPENEM 1 GM in Normal Saline 100 ML IVPB (12:21)
[2024-02-22 14:43] LABS: East Equine Enceph Ab, IgG <1:10 (<1:10); East Equine Enceph Ab, IgM <1:10 (<1:10)
[2024-02-22 15:28] VITALS: BP 157/81; PULSE 85; RESP 17; TEMP 37.7; O2SAT 91
--- NOTE | 2024-02-23 08:34 | CMDISCH_ITS ---
Date of service: 02/23/24 Time of Service: 08:34 LACE Index Scoring Tool Questions: Length of Stay (in days): 7 - 13 Was the patient admitted via the E.D.?: Yes Comorbidities: Liver or Renal Disease E.D. Visits: 2 Answers: Total Score: 15 Risk of Readmission: High Risk Care Management Discharge Plan Reason for Hospitalization: pneumonia and rhabdomyolysis Discharge Plan: Dawit will be transferred to [facility] via EMS coordinated by nursing supervisor aluminum fabrication. CM notified gita Helm, Dawit's niece and POA. At her request his belongongs will be held at [facility] until she can pick them up on Saturday. Services Needed at Discharge: Transportation SDOH Health Related Social Needs: No Data to Display
== END 2024-02-22 19:26 | disposition short-term general hospital (02) | DRG 557 ==
LOC: ER 15:30 → MS 15:57
PROVIDERS: Nurse Practitioner Acute Care; Admitting Provider Family Medicine; Emergency Provider Physician Assistant; PCP Nurse Practitioner Family; Visit Provider Family Medicine
DX: M62.82 Rhabdomyolysis (principal); J18.9 Pneumonia, unspecified organism; N17.9 Acute kidney failure, unspecified; N13.8 Other obstructive and reflux uropathy; I47.10 Supraventricular tachycardia, unspecified; G93.49 Other encephalopathy; W19.XXXA Unspecified fall, initial encounter; N18.9 Chronic kidney disease, unspecified; N40.1 Benign prostatic hyperplasia with lower urinary tract symptoms; E03.9 Hypothyroidism, unspecified; K59.00 Constipation, unspecified; G47.33 Obstructive sleep apnea (adult) (pediatric); R13.10 Dysphagia, unspecified; I12.9 Hypertensive chronic kidney disease with stage 1 through stage 4 chronic kidney disease, or unspecified chronic kidney disease; R41.89 Other symptoms and signs involving cognitive functions and awareness; R29.6 Repeated falls; Z66 Do not resuscitate; K29.70 Gastritis, unspecified, without bleeding; K21.00 Gastro-esophageal reflux disease with esophagitis, without bleeding; D50.9 Iron deficiency anemia, unspecified; F41.1 Generalized anxiety disorder
CPT/HCPCS: 00123; 36415; 70496; 70498; 71045; 80048; 80053; 80076; 80307; 82550; 83690; 84145; 85652; 86652; 87040; 87449; 87798; 87801; 92526; 92610; 93005; 94640; 96365; 96366; 96375; 97110; 97116; 97162; 97530; 99285; J1650; 70551; 71046; 73080; 73564; 74177; 74221; 80320; 81003; 81015; 82140; 82248; 82977; 83605; 83735; 84443; 84484; 85025; 86038; 86618; 87899; 92507; 92523; 93010; 94667; 94668; 94760; 99223; 99232; 99233; 99239; J0456; J1956; J2185; J3411; J3475; J3490; J7620